=== PATIENT | male | born 1960 | race Caucasian/White ===

== ENCOUNTER 2018-10-06 11:14 | Emergency (ER) | payer MEDICARE, MEDICAID ==
[~2018-10-06] VITALS: Ht 182.9 cm; Wt 102.3 kg
[2018-10-06] MEDS ORDERED: LANTINJ4 SC (11:37)
[2018-10-06] MEDS ORDERED: METF10004 PO (11:37)
[2018-10-06] MEDS ORDERED: NS 1,000 ML IV ONE (12:15)
[2018-10-06 12:48] LABS: BASO # 0.1 10^3/uL (0.0-0.2); BASO % 0.6 % (0.0-1.0); EOS # 0.3 10^3/uL (0.0-0.50); EOS % 2.7 % (0.0-3.0); HEMATOCRIT 47.1 % (42.0-52.0); HEMOGLOBIN 15.9 g/dl (13.5-17.5); LYMPH % 28.8 % (24.0-44.0); MEAN CORPUSCULAR HEMOGLOBIN 28.6 pg (27.0-33.0); MEAN CORPUSCULAR HGB CONC 33.8 g/dl (32.0-36.5); MEAN CORPUSCULAR VOLUME 84.9 fl (80.0-96.0); MONO # 0.7 10^3/uL (0.0-0.8); MONO % 6.3 % (0.0-5.0); NEUTROPHILS # 6.4 10^3/uL (1.8-7.7); NEUTROPHILS % 61.2 % (36.0-66.0); PLATELET COUNT, AUTOMATED 197 10^3/uL (150-450); RED BLOOD COUNT 5.55 10^6/uL (4.30-6.10); WHITE BLOOD COUNT 10.5 10^3/uL (4.0-10.0)
--- NOTE | 2018-10-06 13:16 | REP ---
Chest x-ray: Two views. History: Altered mental status. Findings: EKG monitoring electrodes overlie the chest. The lungs are well inflated and clear. Heart is not enlarged. Pulmonary vasculature is not increased. No significant bony abnormality is seen. Impression: No active disease. Electronically Signed by Mark Cottrell MD 10/06/2018 01:08 P
[2018-10-06 14:38] LABS: ACETAMINOPHEN LEVEL < 2.0 UG/ML (10.0-30.0); ALBUMIN 3.7 GM/DL (3.2-5.2); ALT/SGPT 20 U/L (12-78); BILIRUBIN,DIRECT 0.1 MG/DL (0.0-0.2); BILIRUBIN,TOTAL 0.5 MG/DL (0.2-1.0); BLOOD UREA NITROGEN 14 MG/DL (7-18); CALCIUM LEVEL 8.2 MG/DL (8.5-10.1); CARBON DIOXIDE LEVEL 28 MEQ/L (21-32); CHLORIDE LEVEL 103 MEQ/L (98-107); CPK CREATINE PHOSPHOKINASE 153 U/L (39-308); GLOMERULAR FILTRATION RATE > 60.0 (>56); GLUCOSE, FASTING 120 MG/DL (70-100); MB/CK RELATIVE INDEX 1.96 (< OR =4); POTASSIUM SERUM 3.4 MEQ/L (3.5-5.1); SALICYLATE LEVEL < 1.7 MG/DL (5.0-30.0); SODIUM LEVEL 139 MEQ/L (136-145); THYROID STIMULATING HORMONE 0.353 uIU/ML (0.358-3.740); TOTAL PROTEIN 6.4 GM/DL (6.4-8.2); TROPONIN I < 0.02 NG/ML (< 0.10)
[2018-10-06 14:42] LABS: ETHYL ALCOHOL (ETHANOL) < 0.003 % (0.000-0.010)
[2018-10-06 14:54] VITALS: BP 121/72
--- NOTE | 2018-10-06 20:07 | ECGEPIP ---
Stationary ECG Study [facility] - ED Test Date: 2018-10-06 Pat Name: LUCIA MCNAIR Department: Room: - Gender: M Director [employer]: aureliano : 1960 Requested By: Vicenta Parsons Order Number: [id number] Reading MD: Vicenta Parsons Measurements Intervals [place] Rate: 82 P: 38 SC: 192 QRS: -22 QRSD: 94 T: 40 QT: 345 QTc: 404 Interpretive Statements SINUS RHYTHM WITH MARKED SINUS ARRHYTHMIA SEPTAL MYOCARDIAL INFARCTION, OF INDETERMINATE AGE LAD NONSPECIFIC ST T WAVE CHANGES NO OLD ECG Electronically Signed On 10-06-2018 20:06:54 EST by Vicenta Parsons
== END 2018-10-06 14:55 | disposition home or self-care (01) ==
LOC: M ED 11:14
DX: R53.83 Other fatigue (principal); R53.81 Other malaise; E11.9 Type 2 diabetes mellitus without complications; F17.210 Nicotine dependence, cigarettes, uncomplicated; Z79.4 Long term (current) use of insulin
CPT/HCPCS: 71046; 80048; 80076; 82550; 82553; 83605; 84443; 84484; 85025; 93005; 94760; 99284; G0480

== ENCOUNTER 2018-11-23 13:01 | Emergency (ER) | payer MEDICARE, MEDICAID ==
[~2018-11-23] VITALS: Ht 182.9 cm; Wt 109.0 kg
[~2018-11-23 13:01] MED LIST: LANTINJ4 SC; METF10004 PO
[2018-11-23] MEDS ORDERED: ACETAMINOPHEN 325 MG TAB PO ONE (13:15)
[2018-11-23] MEDS ORDERED: IBUPROFEN 600 MG TAB PO ONE (13:15)
[2018-11-23 13:49] LABS: BASO % 0.5 % (0.0-1.0); EOS % 0.4 % (0.0-3.0); HEMATOCRIT 47.8 % (42.0-52.0); HEMOGLOBIN 16.2 g/dl (13.5-17.5); LYMPH # 0.6 10^3/uL (1.5-4.5); LYMPH % 6.5 % (24.0-44.0); MEAN CORPUSCULAR HGB CONC 33.9 g/dl (32.0-36.5); MEAN CORPUSCULAR VOLUME 85.5 fl (80.0-96.0); MONO # 1.1 10^3/uL (0.0-0.8); MONO % 13.3 % (0.0-5.0); NEUTROPHILS # 6.7 10^3/uL (1.8-7.7); NEUTROPHILS % 78.8 % (36.0-66.0); PLATELET COUNT, AUTOMATED 142 10^3/uL (150-450); RED BLOOD COUNT 5.59 10^6/uL (4.30-6.10); WHITE BLOOD COUNT 8.5 10^3/uL (4.0-10.0)
--- NOTE | 2018-11-23 13:58 | REP ---
PORTABLE CHEST X-RAY: Single view. HISTORY: Systemic inflammatory response syndrome. COMPARISON CHEST X-RAY: October 06, 2018. FINDINGS: The lungs are symmetrically aerated and free of infiltrate. Pleural angles are sharp. Heart size is normal. The aorta somewhat tortuous. No infiltrate is seen. Pulmonary vasculature is not increased. There are arthritic changes in the right shoulder. IMPRESSION: No active cardiopulmonary disease. Electronically Signed by Mark Cottrell MD 11/23/2018 03:19 P
[2018-11-23 14:14] LABS: ALBUMIN 4.1 GM/DL (3.2-5.2); ALT/SGPT 24 U/L (12-78); BILIRUBIN,DIRECT 0.2 MG/DL (0.0-0.2); BILIRUBIN,TOTAL 0.6 MG/DL (0.2-1.0); BLOOD UREA NITROGEN 15 MG/DL (7-18); CALCIUM LEVEL 8.3 MG/DL (8.5-10.1); CARBON DIOXIDE LEVEL 31 MEQ/L (21-32); CHLORIDE LEVEL 95 MEQ/L (98-107); CREATININE FOR GFR 1.04 MG/DL (0.70-1.30); GLOMERULAR FILTRATION RATE > 60.0 (>56); GLUCOSE, FASTING 264 MG/DL (70-100); POTASSIUM SERUM 3.5 MEQ/L (3.5-5.1); SODIUM LEVEL 133 MEQ/L (136-145); TOTAL PROTEIN 7.3 GM/DL (6.4-8.2)
[2018-11-23 14:35] VITALS: BP 128/67
[2018-11-23 14:41] LABS: INFLUENZA A AMPLIFICATION POSITIVE (NEGATIVE); INFLUENZA B AMPLIFICATION NEGATIVE (NEGATIVE)
== END 2018-11-23 15:36 | disposition left against medical advice (07) ==
LOC: EDBD 13:01 → M ED 13:01
DX: J09.X2 Influenza due to identified novel influenza A virus with other respiratory manifestations (principal); E11.9 Type 2 diabetes mellitus without complications; F17.200 Nicotine dependence, unspecified, uncomplicated; Z79.84 Long term (current) use of oral hypoglycemic drugs

== ENCOUNTER 2018-12-02 13:28 | Emergency (ER) | payer MEDICARE, MEDICAID ==
[2018-12-02 13:30] VITALS: BP 154/86
== END 2018-12-02 16:00 | disposition left against medical advice (07) ==
LOC: M ED 13:28
DX: Z53.21 Procedure and treatment not carried out due to patient leaving prior to being seen by health care provider (principal)

== ENCOUNTER → 2018-12-21 | Outpatient (REF) | payer MEDICARE, MEDICAID ==
[2018-12-21 19:06] LABS: ALT/SGPT 28 U/L (12-78); BILIRUBIN,TOTAL 0.4 MG/DL (0.2-1.0); BLOOD UREA NITROGEN 13 MG/DL (7-18); CALCIUM LEVEL 8.7 MG/DL (8.5-10.1); CARBON DIOXIDE LEVEL 29 MEQ/L (21-32); CHLORIDE LEVEL 98 MEQ/L (98-107); CHOLESTEROL LEVEL 172 MG/DL (<200); CHOLESTEROL RISK RATIO 3.583 (<5); FREE T4 0.98 NG/DL (0.76-1.46); GLOMERULAR FILTRATION RATE > 60.0 (>56); GLUCOSE, FASTING 317 MG/DL (70-100); HDL CHOLESTEROL 48 MG/DL (>40); LDL CHOLESTEROL 64 MG/DL (<100); NON-HDL-C 124 MG/DL; POTASSIUM SERUM 3.7 MEQ/L (3.5-5.1); SODIUM LEVEL 135 MEQ/L (136-145); THYROID STIMULATING HORMONE 0.321 uIU/ML (0.358-3.740); TOTAL PROTEIN 7.1 GM/DL (6.4-8.2); TRIGLYCERIDES LEVEL 302 MG/DL (<150)
[2018-12-21 19:14] LABS: BASO # 0.1 10^3/uL (0.0-0.2); BASO % 0.6 % (0.0-1.0); EOS # 0.2 10^3/uL (0.0-0.50); EOS % 1.8 % (0.0-3.0); HEMATOCRIT 45.5 % (42.0-52.0); HEMOGLOBIN 15.8 g/dl (13.5-17.5); HEMOGLOBIN A1c 10.6 %; LYMPH # 2.7 10^3/uL (1.5-4.5); LYMPH % 22.4 % (24.0-44.0); MEAN CORPUSCULAR HEMOGLOBIN 29.8 pg (27.0-33.0); MEAN CORPUSCULAR HGB CONC 34.7 g/dl (32.0-36.5); MEAN CORPUSCULAR VOLUME 85.8 fl (80.0-96.0); MONO # 0.6 10^3/uL (0.0-0.8); MONO % 5.1 % (0.0-5.0); NEUTROPHILS # 8.3 10^3/uL (1.8-7.7); NEUTROPHILS % 69.7 % (36.0-66.0); PLATELET COUNT, AUTOMATED 172 10^3/uL (150-450); WHITE BLOOD COUNT 11.9 10^3/uL (4.0-10.0)
[2018-12-21 19:17] LABS: TOTAL 25(OH) VITAMIN D 17.6 NG/ML (30.0-100.0)
[2018-12-24 00:07] LABS: Lyme Disease IgG/IgM Antibodie <0.91 ISR (0.00-0.90); Lyme Disease IgM Ab Quantitati <0.80 index (0.00-0.79)
== END ==
LOC: M LAB REF 18:06
PROVIDERS: ATTEND Internal Medicine
DX: Z12.5 Encounter for screening for malignant neoplasm of prostate (principal); E11.9 Type 2 diabetes mellitus without complications; Z13.228 Encounter for screening for other metabolic disorders
CPT/HCPCS: 80053; 80061; 82306; 83036; 84439; 84443; 85025; 86617; G0103

== ENCOUNTER → 2019-01-08 | Outpatient (CLI) | payer MEDICARE, MEDICAID ==
--- NOTE | 2019-01-08 14:50 | REP ---
CT INTERNAL AUDITORY CANALS WITHOUT CONTRAST: HISTORY: Mixed conductive hearing loss. The right internal auditory canal, cochlea, vestibule and semicircular canals are normal in appearance. There is no carotid canal or jugular bulb dehiscence. The ossicles are normal in configuration and position. The scutum is intact. There are areas of dehiscence in the tegmen. There is thickening and retraction of the tympanic membrane. Minimal mucosal thickening is present in the mastoid antrum and mastoid air cells. The patient is status post left mastoidectomy. The left internal auditory canal, cochlea, vestibule, and semicircular canals are normal in appearance. There is no carotid canal jugular bulb dehiscence. Soft tissue density consistent with scar is present at the margins of the mastoidectomy site. The visualized sinuses are clear. The nasopharynx is normal in appearance. IMPRESSION: 1. There is thickening and retraction of the right tympanic membrane. Minimal mucosal thickening is present in the right mastoid antrum and mastoid air cells. 2. The patient is status post left mastoidectomy. Electronically Signed by Dagoberto Rod MD 01/08/2019 02:53 P
== END ==
LOC: M RAD 13:54
PROVIDERS: ATTEND Otolaryngology
DX: H73.891 Other specified disorders of tympanic membrane, right ear (principal); Z86.69 Personal history of other diseases of the nervous system and sense organs

== ENCOUNTER 2019-04-20 15:55 | Emergency (ER) | payer MEDICARE, MEDICAID ==
[~2019-04-20] VITALS: Ht 182.9 cm; Wt 113.6 kg
[2019-04-20 15:55] VITALS: BP 142/72
[2019-04-20] MEDS ORDERED: METF500T13 (16:02)
[2019-04-20] MEDS ORDERED: insulin (16:02)
[2019-04-20] MEDS ORDERED: KEFL500C17 PO (17:41)
[2019-04-20] MEDS ORDERED: CEPHALEXIN 500 MG CAP PO ONE (17:45)
[2019-04-20] MEDS ORDERED: ADACEL/BOOSTRIX VACCINE (DIPHTH/PERTUSS/ACELL/TETANUS)0.5ML SYR (90715) IM ONE (17:45)
== END 2019-04-20 17:52 | disposition home or self-care (01) ==
LOC: M ED 15:55
DX: S81.812A Laceration without foreign body, left lower leg, initial encounter (principal); L03.116 Cellulitis of left lower limb; X58.XXXA Exposure to other specified factors, initial encounter; Y92.830 Public park as the place of occurrence of the external cause; Y93.01 Activity, walking, marching and hiking; E11.9 Type 2 diabetes mellitus without complications; F17.210 Nicotine dependence, cigarettes, uncomplicated; Z79.4 Long term (current) use of insulin

== ENCOUNTER 2019-06-08 12:32 | Emergency (ER) | payer MEDICARE, MEDICAID ==
[~2019-06-08 12:32] MED LIST changes: +KEFL500C17 PO; +METF500T13; +insulin
[2019-06-08 15:01] VITALS: BP 139/98
== END 2019-06-08 15:05 | disposition home or self-care (01) ==
LOC: M ED 12:32
DX: F32.9 Major depressive disorder, single episode, unspecified (principal); E11.9 Type 2 diabetes mellitus without complications; Z79.84 Long term (current) use of oral hypoglycemic drugs

== ENCOUNTER 2019-07-02 13:02 | Emergency (ER) | payer MEDICARE, MEDICAID ==
[~2019-07-02] VITALS: Ht 182.9 cm; Wt 102.0 kg
--- NOTE | 2019-07-02 14:13 | REP ---
Right foot series: Four views. History: Rule out foreign body. Findings: Four views of the right foot demonstrate overall normal mineralization. There is plantar calcaneal spurring. 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 No opaque foreign bodies seen. Impression: No evidence of fracture or opaque foreign body. Heel spur and first MTP joint spurring. Electronically Signed by Mark Cottrell MD 07/02/2019 02:05 P
--- NOTE | 2019-07-02 15:06 | REP ---
CT RIGHT FOOT: Axial CT images of the right foot are performed without the use of intravenous contrast. Sagittal and coronal reconstruction images are performed. There is no evidence of acute fracture or dislocation. Tiny 2 mm calcification is seen at the posterior marginal of the distal end of the tibia and another is seen between the distal tibia and fibula. These could possibly represent old chip fractures. Nonspecific linear calcification is seen in the anterior talocalcaneal joint having a length of approximately 4 mm. There is mild to moderate inferior calcaneal spurring. Arthritic changes are seen at the first metatarsophalangeal joint with moderate joint space narrowing and mild subchondral sclerosis and spurring. There is a hallux valgus deformity. Ankle mortise is anatomic. No radiopaque foreign body is seen in the soft tissues. IMPRESSION: No acute fracture or dislocation. No foreign body in the soft tissues. Arthritic changes. Electronically Signed by Jhonny Warren MD 07/06/2019 08:53 A
[2019-07-02 15:13] LABS: BASO # 0.1 10^3/uL (0.0-0.2); BASO % 0.3 % (0.0-1.0); EOS # 0.2 10^3/uL (0.0-0.5); EOS % 1.1 % (0.0-3.0); HEMATOCRIT 45.3 % (42.0-52.0); HEMOGLOBIN 15.5 g/dl (13.5-17.5); LYMPH # 2.3 10^3/uL (1.5-5.0); LYMPH % 15.9 % (24.0-44.0); MEAN CORPUSCULAR HEMOGLOBIN 30.2 pg (27.0-33.0); MEAN CORPUSCULAR HGB CONC 34.2 g/dl (32.0-36.5); MEAN CORPUSCULAR VOLUME 88.3 fl (80.0-96.0); MONO # 0.9 10^3/uL (0.0-0.8); MONO % 6.3 % (0.0-5.0); NEUTROPHILS # 11.1 10^3/uL (1.5-8.5); NEUTROPHILS % 75.9 % (36.0-66.0); PLATELET COUNT, AUTOMATED 174 10^3/uL (150-450); RED BLOOD COUNT 5.13 10^6/uL (4.30-6.10); WHITE BLOOD COUNT 14.6 10^3/uL (4.0-10.0)
[2019-07-02] MEDS ORDERED: CIPROFLOXACIN 400 MG in IV 1 EA IV ONE (15:30)
[2019-07-02 15:37] LABS: BLOOD UREA NITROGEN 20 MG/DL (7-18); CALCIUM LEVEL 8.9 MG/DL (8.5-10.1); CARBON DIOXIDE LEVEL 32 MEQ/L (21-32); CHLORIDE LEVEL 94 MEQ/L (98-107); CREATININE FOR GFR 0.96 MG/DL (0.70-1.30); GLOMERULAR FILTRATION RATE > 60.0 (>56); GLUCOSE, FASTING 326 MG/DL (70-100); POTASSIUM SERUM 4.2 MEQ/L (3.5-5.1); SODIUM LEVEL 133 MEQ/L (136-145)
[2019-07-02 17:50] VITALS: BP 147/86
[2019-07-02] MEDS ORDERED: CIPR-249 PO (18:03)
== END 2019-07-02 18:22 | disposition home or self-care (01) ==
LOC: M ED 13:02
DX: M77.31 Calcaneal spur, right foot (principal); F17.210 Nicotine dependence, cigarettes, uncomplicated; E11.65 Type 2 diabetes mellitus with hyperglycemia; Z79.4 Long term (current) use of insulin; S91.331A Puncture wound without foreign body, right foot, initial encounter; X58.XXXA Exposure to other specified factors, initial encounter; Y92.89 Other specified places as the place of occurrence of the external cause
CPT/HCPCS: 36415; 73630; 73700; 80048; 85025; 87040; 99284; J0744

== ENCOUNTER 2019-07-06 10:03 | Emergency (ER) | payer MEDICARE, MEDICAID ==
[~2019-07-06] VITALS: Ht 182.9 cm; Wt 102.2 kg
[~2019-07-06 10:03] MED LIST changes: +CIPR-249 PO
[2019-07-06] MEDS ORDERED: CIPROFLOXACIN 400 MG in IV 1 EA IV ONE (11:00)
[2019-07-06 11:35] LABS: BASO % 0.3 % (0.0-1.0); EOS # 0.1 10^3/uL (0.0-0.5); EOS % 0.8 % (0.0-3.0); HEMATOCRIT 43.4 % (42.0-52.0); HEMOGLOBIN 14.8 g/dl (13.5-17.5); LYMPH # 1.8 10^3/uL (1.5-5.0); LYMPH % 12.1 % (24.0-44.0); MEAN CORPUSCULAR HEMOGLOBIN 29.8 pg (27.0-33.0); MEAN CORPUSCULAR HGB CONC 34.1 g/dl (32.0-36.5); MEAN CORPUSCULAR VOLUME 87.3 fl (80.0-96.0); MONO # 0.9 10^3/uL (0.0-0.8); NEUTROPHILS # 11.7 10^3/uL (1.5-8.5); NEUTROPHILS % 80.5 % (36.0-66.0); PLATELET COUNT, AUTOMATED 180 10^3/uL (150-450); RED BLOOD COUNT 4.97 10^6/uL (4.30-6.10); WHITE BLOOD COUNT 14.6 10^3/uL (4.0-10.0)
[2019-07-06 12:05] LABS: BLOOD UREA NITROGEN 22 MG/DL (7-18); CALCIUM LEVEL 8.5 MG/DL (8.5-10.1); CARBON DIOXIDE LEVEL 25 MEQ/L (21-32); CHLORIDE LEVEL 98 MEQ/L (98-107); CREATININE FOR GFR 1.02 MG/DL (0.70-1.30); GLOMERULAR FILTRATION RATE > 60.0 (>56); GLUCOSE, FASTING 443 MG/DL (70-100); POTASSIUM SERUM 3.4 MEQ/L (3.5-5.1); SODIUM LEVEL 134 MEQ/L (136-145)
[2019-07-06 13:48] VITALS: BP 141/80
== END 2019-07-06 13:50 | disposition home or self-care (01) ==
LOC: EDBD 10:03 → M ED 10:03 → EDUNIT# 10:03 → M ED 13:50
DX: S91.331D Puncture wound without foreign body, right foot, subsequent encounter (principal); Z91.19 Patient's noncompliance with other medical treatment and regimen; X58.XXXD Exposure to other specified factors, subsequent encounter; Y92.9 Unspecified place or not applicable; Y93.9 Activity, unspecified; Y99.9 Unspecified external cause status; E11.9 Type 2 diabetes mellitus without complications; Z79.4 Long term (current) use of insulin; Z79.899 Other long term (current) drug therapy
CPT/HCPCS: 80048; 83605; 85025; 96365; 96366; 99284; J0744

== ENCOUNTER 2019-07-12 12:10 | Inpatient (IN) | payer MEDICARE, MEDICAID ==
[~2019-07-12] VITALS: Ht 182.9 cm; Wt 94.8 kg
[2019-07-12] MEDS ORDERED: MORPHINE 4 MG/ML 1ML VIAL/SYRINGE (J2270) IV ONE (12:45)
[2019-07-12] MEDS ORDERED: NS 1,000 ML IV ONE (12:45)
[2019-07-12] MEDS ORDERED: VANCOMYCIN HCL 1,000 MG, VIAL MATE ADAPTER 1 EACH in D5W 250 ML IV ONE (13:00)
[2019-07-12] MEDS ORDERED: PIPERACILLIN/TAZOBACTAM SOD 3.375 GM in D5W MINI-BAG PLUS 50 ML IV ONE (13:00)
[2019-07-12 13:16] LABS: BASO # 0.1 10^3/uL (0.0-0.2); BASO % 0.3 % (0.0-1.0); EOS # 0.1 10^3/uL (0.0-0.5); EOS % 0.2 % (0.0-3.0); HEMATOCRIT 40.5 % (42.0-52.0); HEMOGLOBIN 13.9 g/dl (13.5-17.5); LYMPH # 1.4 10^3/uL (1.5-5.0); LYMPH % 6.5 % (24.0-44.0); MEAN CORPUSCULAR HEMOGLOBIN 29.9 pg (27.0-33.0); MEAN CORPUSCULAR HGB CONC 34.3 g/dl (32.0-36.5); MEAN CORPUSCULAR VOLUME 87.1 fl (80.0-96.0); MONO # 1.3 10^3/uL (0.0-0.8); MONO % 6.4 % (0.0-5.0); PLATELET COUNT, AUTOMATED 225 10^3/uL (150-450); RED BLOOD COUNT 4.65 10^6/uL (4.30-6.10); WHITE BLOOD COUNT 20.9 10^3/uL (4.0-10.0)
[2019-07-12 13:43] LABS: ERYTHROCYTE SEDIMENTATION RATE 44 mm/hr (0-20)
[2019-07-12] MEDS ORDERED: NOVOINJ3 SC (14:27)
[2019-07-12] MEDS ORDERED: METF-791 PO (14:27)
[2019-07-12] MEDS ORDERED: CIPR500T3 PO (14:27)
[2019-07-12] MEDS ORDERED: LEVE1INJ5 SC (14:27)
--- NOTE | 2019-07-12 15:25 | HPEPDOC ---
[facility] Medical History & Physical Date of Admission Jul 12, 2019 Date of Service: Jul 12, 2019 History and Physical CHIEF COMPLAINT: R. foot pain HISTORY OF PRESENT ILLNESS: Patient is 58M with PMH IDDM and congenital hearing impairment presented to the ER with complaints of R. foot wound that started 1.5 weeks ago. He initially presented to the ER for the first time 1.5 weeks prior with some erythema and pain and was given cipro PO outpatient without improvement. He came back 2nd time and was given IV abx and sent home but wound persisted and got worse. He was found to have increased swelling today beyond the R. heel he initially presented with, now generalized R. foot swelling to above ankle with erythema at the heel. He denies any other complaints apart from the discomfort in his foot after he underwent I&D that expressed purulent drainage. He was noted to have WBC 20 with elevated ESR and CRP. PAST MEDICAL HISTORY: Refer to [facility] PAST SURGICAL HISTORY: Ear surgery SOCIAL HISTORY: Smokes 1/2 ppd. Denies alcohol or illicit drug use. FAMILY HISTORY: None known ALLERGIES: Please see below. REVIEW OF SYSTEMS: 10 point review of system negative except as stated in [facility] HOME MEDICATIONS: Please see below. PHYSICAL EXAMINATION: General: No acute distress, Alert, unkempt in dirty clothing Eyes: Normal sclera, EOMI, CHAD HENT: Atraumatic, neck supple, moist mucous membranes Cardiovascular: Normal rate, normal rhythm. Pulmonary: Clear to auscultation b/l, no wheezing GI: Soft, nontender, nondistended Skin: Warm and dry Neuro: CN grossly intact. No focal deficits. Strengths equal b/l. Psych: oriented x 3 LABORATORY DATA: See below. IMAGING: R. foot XR f/u MICROBIOLOGY: Please see below. ASSESSMENT AND PLAN: 1. R. foot diabetic wound - Reported to be 2/2 traumatic injury from stepping on nail but patient denies any states that it came on suddenly on its own. - Failed outpatient PO abx treatment with cipro. - s/p I&D in ER with expression of purulent drainage. f/u blood and wound culture. - XR and CT of R. foot from 10 days prior showed no significant pathology. Repeat R. foot XR as wound has now worsened and purulent. - ESR and CRP elevated in addition to leukocytosis. Podiatry and ID consulted. - C/w Zosyn and vancomycin started in ER for now pending ID recommendations. 2. IDDM - Resume home medications with holding of metformin. - ISS. Check BS. 3. hearing impairment - congenital. no active issues. Code status: Full code Dispo: CM to assess home safety, reportedly has no hot water at his apartment and he cannot take care of himself adequately as a result of it. Vital Signs Vital Signs Date Time Temp Pulse Resp B/P (MAP) Pulse Ox O2 Delivery O2 Flow Rate FiO2 07/12/19 12:30 97.5 07/12/19 12:21 75 18 121/69 (86) 96 Room Air Laboratory Data Labs 24H Laboratory Tests 2 07/12/19 13:07: Immature Granulocyte % (Auto) 0.6, Neutrophils (%) (Auto) 86.0H, Lymphocytes (%) (Auto) 6.5L, Monocytes (%) (Auto) 6.4H, Eosinophils (%) (Auto) 0.2, Basophils (%) (Auto) 0.3, Neutrophils # (Auto) 18.0H, Lymphocytes # (Auto) 1.4L, Monocytes # (Auto) 1.3H, Eosinophils # (Auto) 0.1, Basophils # (Auto) 0.1, Nucleated Red Blood Cells % (auto) 0.0, Erythrocyte Sedimentation Rate 44H, C-Reactive Protein, Quantitative 18.60H 07/12/19 13:09: POC Glucose (Misc Panel) 389H, POC Sodium (Misc Panel) 134L, POC Potassium (Misc Panel) 3.0L, POC Chloride (Misc Panel) 91L, POC Total CO2 (Misc Panel) 31.0H, POC Blood Urea Nitrogen (Misc Panel 17, POC Ionized Calcium (Misc Panel) 4.3L, POC Creatinine (Misc Panel) 0.9, POC Hematocrit (Misc Panel) 43.0 CBC/BMP Laboratory Tests 07/12/19 13:07 Microbiology Microbiology 07/12/19 Gram Stain, Received Pending 07/12/19 Wound Culture, Received Pending 07/12/19 Blood Culture, Received Pending 07/12/19 Blood Culture, Received Pending Home Medications Scheduled Ciprofloxacin HCl (Ciprofloxacin HCl) 500 Mg Tablet, 500 MG PO BID PICKED UP FROM PHARMACY ON 07/08/19 Insulin Aspart (Novolog Flexpen) 100 Unit/1 Ml Insuln.pen, 1 DOSE SC ACHS PER SLIDING SCALE Insulin Detemir (Levemir Flextouch) 100 Unit/1 Ml Insuln.pen, 30 UNIT SC QHS Metformin HCl (Metformin HCl ER) 500 Mg Tab.er.24h, 1,000 MG PO BID Allergies Coded Allergies: No Known Allergies (Unverified , 10/06/18) A-FIB/CHADSVASC A-FIB History Current/History of A-Fib/PAF?: No AUSTYN GIVENS MD Jul 12, 2019 15:25
[2019-07-12 16:10] VITALS: BP 137/64
[2019-07-12] MEDS: ACETAMINOPHEN TAB 650MG DOSE (2X325MG) PO PRN (17:27)
[2019-07-12] MEDS ORDERED: GLUCOSE 4 GM CHEW TABLET PO PRN (18:00)
[2019-07-12] MEDS ORDERED: DEXTROSE 50% 50 ML SYRINGE IV PRN (18:00)
[2019-07-12] MEDS ORDERED: GLUCAGON FOR INJ 1 MG VIAL (J1610) SC PRN (18:00)
--- NOTE | 2019-07-12 18:00 | REP ---
REASON: Foot pain. COMPARISON: 07/02/2019. There is no change from 07/02/2019. There is a plantar calcaneal heel spur. There are degenerative changes seen involving the first metatarsal phalangeal joint. IMPRESSION:No change. Electronically Signed by Erich Roberto DO 07/13/2019 10:26 A
[2019-07-12] MEDS: PIPERACILLIN/TAZOBACTAM SOD 3.375 GM in D5W MINI-BAG PLUS 50 ML IV SCH (18:14)
[2019-07-12] MEDS: HumaLOG INSULIN (NovoLOG) PER UNIT SC SCH ×2 (18:14→21:00)
--- NOTE | 2019-07-12 18:14 | CR ---
DATE OF CONSULTATION: 07/12/2019 REASON FOR CONSULTATION: Right foot pain. This is a pleasant 58-year-old male who was admitted to the hospital with right foot wound infection. He believes this started about 1-2 weeks ago. He does not recall any specific injury. He was given Cipro outpatient but had worsening redness and pain. He was admitted to the hospital from the emergency room (ER) today. PAST MEDICAL HISTORY: Significant for insulin-dependent diabetes. SURGICAL HISTORY: Includes ear history. SOCIAL HISTORY: Smokes one-half pack per day. Denies other drug use. FAMILY HISTORY: Noncontributory. ALLERGIES: None. VITAL SIGNS: Patient is afebrile. Labs are reviewed. White blood cell count is 20.9. ESR is 44. CRP is 18.6. Cultures taken in the ER today show gram-positive cocci in clusters. Imaging studies are reviewed. He had a foot x-ray and CT on 07/02/2019, where no foreign body or soft tissue pathology was noted, and a repeat x-ray was done today, where no foreign body or soft tissue issues were noted. Lower extremity examination: There is erythema to the right heel. There is ulceration with fluctuance and fluid on the plantar heel. After removal of fluid, there is a small puncture site on the right heel. He has diminished protective sensation. Pedal pulses are palpable. ASSESSMENT: This is a 58-year-old diabetic male. PLAN: Bedside incision and drainage were performed using #15 blade. No anesthetic was used due to neuropathy. Fluid was expressed, and a small puncture wound was made around the previous wound site, allowing further drainage from the wound. Continue empiric antibiotics. Await cultures results. Start packing twice daily.
--- NOTE | 2019-07-12 19:24 | CR ---
DATE OF CONSULTATION: 07/12/2019 CONSULTATION REPORT FOR: Dr. Romero REASON FOR CONSULTATION: Right foot cellulitis. ATTENDING PHYSICIAN: Dr. Aaliyah Centeno HISTORY OF PRESENT ILLNESS: Mr. Yuan is a 58-year-old male who presented to the [facility] Emergency Department with a complaint of a right foot wound. He has a past medical history significant for insulin-dependent diabetes mellitus type 2 as well as a congenital hearing impairment. The patient states that his right foot wound had started approximately one and a half weeks ago. At which point, he presented to the [facility] Emergency Department and was treated with IV ciprofloxacin and discharged home with oral ciprofloxacin. The patient states that his foot pain continued and did not get better and he presented for a second time. At which point, he was given another IV dose of ciprofloxacin and discharged home with continued oral therapy. The patient states that since returning home on 07/06/2019 his right foot wound continued to worsen. He states that he did not have any fevers. However, he states that he may have had some chills sometimes. He did admit to increased swelling of his right foot as well as increased erythema as well. The patient states that he is fairly noncompliant with his diabetes and that he has not seen a primary care physician in approximately a year. He states that he was diagnosed with diabetes approximately 10 years ago and uses his medication every now and then and is not consistent. He does state that he has feeling in his legs, although he does admit that it is somewhat dull. The patient currently denies any nausea or vomiting. He denies any diarrhea or constipation. He denies any previous history of diabetic foot ulcers in the past. REVIEW OF SYSTEMS: CONSTITUTIONAL: The patient denies any fevers, chills, unintentional weight loss or weight gain. He denies any night sweats. HEENT: The patient denies any changes in vision. He admits to chronic hearing impairment since childhood. He denies any sore throat or dysphagia. CARDIAC: The patient denies any chest pain. He denies any palpitations or feeling of fluttering in his chest. PULMONARY: The patient denies any shortness of breath. He denies any coughing or wheezing. He denies any sputum production. He denies any hemoptysis. GASTROINTESTINAL: The patient denies any abdominal pain. He denies any nausea or vomiting. He denies any dark or tarry stools. He denies any blood in his stools. MUSCULOSKELETAL: The patient denies any muscle pain or weakness. EXTREMITIES: The patient admits to a right heel pain which has been persisting for about approximately one and a half weeks. He admits to erythema extending from his right heel up his right leg. He denies any swelling or edema of his legs bilaterally. NEUROLOGICAL: The patient denies any changes in gait. He denies any changes in his speech or vision. SKIN: The patient denies any rash or lesions. He does admit to an ulcer on his right foot. GENITOURINARY: The patient denies any dysuria, increased frequency or urgency. PSYCHIATRIC: The patient denies any depression or anxiety. ENDOCRINE: The patient admits to a history of diabetes. He denies any heat intolerance or cold intolerance. HEMATOLOGIC: The patient denies any history of easy bruising or bleeding. He denies any history of deep vein thrombosis or pulmonary embolism. PAST MEDICAL HISTORY: 1. Diabetes mellitus type 2, on insulin therapy. 2. Congenital hearing impairment. PAST SURGICAL HISTORY: Mastoidectomy. SOCIAL HISTORY: The patient smokes approximately one to one and a half packs per day. He denies any alchohol or IV or illicit drug use. The patient states that he lives at home alone in a room that he rents. FAMILY HISTORY: The patient's mother and father are both . He is not sure of how they are . He has one brother who is alive and living in [place]. He has a sister who is alive and living in [place]. His sister has a history of diabetes mellitus type 2. INPATIENT MEDICATIONS: - Zosyn 3.375 grams every six hours IV - vancomycin 1 gram IV - insulin detemir 35 units at bedtime - insulin lispro sliding scale - Lovenox 40 mg daily subcutaneously LABORATORY DATA: Hematology: White blood cells 20.9, hemoglobin 13.9, hematocrit 40.5, platelets 225. ESR 44. C-reactive protein 18.6. POC glucose 346. IMAGING: Completed on 07/12/2019: Foot x-ray currently pending. Foot x-ray completed on 07/02/2019 demonstrated no evidence of fracture or foreign body. There was a heel spur at the first MTP joint. Foot x-ray on 07/12/[address] is currently pending. Extremity CT on 07/02/2019 demonstrated no acute fracture or dislocation and no foreign bodies in the soft tissues as well as some arthritic changes. PHYSICAL EXAMINATION: VITAL SIGNS: Temperature 98.4, pulse 63, respiratory rate 20, blood pressure 137/64, pulse oximetry 96% on room air. GENERAL: The patient is awake, alert, and oriented. He is lying in his stretcher. He did not appear to be in any acute distress. HEENT: Normocephalic, atraumatic. Eyes are nonicteric. Trachea is midline. The patient has a hearing aid device in his right ear. His dentition is poor. CARDIOVASCULAR: Normal S1, S2 with a regular rate and rhythm. There are no clicks, rubs, or murmurs. PULMONARY: There are clear vesicular breath sounds bilaterally with good respiratory effort. There is a prolonged expiratory phase. There are no wheezes. There are no rhonchi. There are no rales. There is no dullness to percussion. There is no clubbing or cyanosis of the nail beds. ABDOMEN: Soft. It is nondistended. It is nontender to palpation in all four quadrants. No rebound tenderness. There is no guarding. There are no rashes or lesions. There are no hernias present. There are normoactive bowel sounds throughout. EXTREMITIES: The patient's extremities are without edema. There are 2+ posterior tibial pulses bilaterally. There are 2+ dorsalis pedis pulses bilaterally. On the patient's right heel, there is an approximately 6 cm x 5 cm area of abscess/cellulitis. There is no opening of the skin. There is some erythema surrounding and extending up the leg. On palpation of the abscess, it is fluctuant. His toenails demonstrate likely onychomycosis. There are no other ulcers or lesions present on his bilateral feet. PSYCHIATRIC: The patient's mood and affect appear appropriate for the situation. ASSESSMENT AND PLAN: The patient is a 58-year-old male who presented with a right foot cellulitis with possible abscess who was seen twice in the emergency department and treated with ciprofloxacin. He has failed ciprofloxacin therapy both IV and oral previously. He is being admitted for treatment of a presumed right foot cellulitis. The patient has received imaging on his previous hospitalization with a negative foot x-ray. Foot x-ray was repeated today which is pending. Unlikely to be osteomyelitis. However, an MRI may need to be performed in order to definitively guide antibiotic therapy duration if slow to improve . In the emergency department, the patient's right heel wound was incised and drained for culture. The patient's gram-staining came back with many gram-positive cocci in clusters. The wound culture is currently pending. Likely going to be a Staphylococcus aureus infection. The patient is currently receiving Zosyn every six hours 3.75 grams. He received 1 gram of vancomycin in the emergency room (ER). Once culture data has returned, we will tailor antibiotic therapy and deescalate according to culture data. [facility]
[2019-07-12 21:00] VITALS: BP 118/73
[2019-07-12 22:00] VITALS: BP 118/73
[2019-07-12] MEDS: LEVEMIR (INSULIN DETEMIR) 1 UNITS/0.01ML SC SCH (22:00)
[2019-07-12] MEDS: PERCOCET 5MG/325MG TAB PO PRN (23:49)
--- NOTE | 2019-07-12 23:49 | PHACANCOPD ---
PHARMACY VANCOMYCIN DOSING Pt Demographics Demographics Patient Age:58 , Weight:95.500 , Gender: male Adjusted Body Weight Events Past 24 Hours Events Past 24 Hours: NO: Dialysis, Diuretic Therapy, Change in CrCl, Fever, Elevation in WBC, Pending Diagnostics, Pending Procedures, Other Vancomycin Vancomycin indication: RT DIABETIC FOOT SSSI Vancomycin Target Ranges: 15-20 mcg/ml Vancomycin Load Y/N: Yes Load Dose Date Time Vancomycin Load Dose: 2GM Date: 07/13/19 Time: 2AM Vancomycin Dose Date: 07/13/19. Current Vancomycin Dose: [1GM IV Q8H (10:00)] Intermittent Dosing?: No Labs Micro Microbiology 07/12/19 Gram Stain, Received Pending 07/12/19 Wound Culture, Received Pending 07/12/19 Gram Stain - Final, Resulted 07/12/19 Wound Culture, Resulted Pending 07/12/19 Blood Culture, Received Pending 07/12/19 Blood Culture, Received Pending Creatinine Clearance Date:07/12/19. Creatinine Clearance: [>60ml/min]. Assessment and Plan Maintaining Current Dose?: Yes Reason for dose change: No Dose Change, Other Pharmacist Note Pharmacist Note Date: 07/13/19. PharmD note: VANCO 2GM LOAD DOSE AT 2AM FOLLOWED BY 1GM IV Q8H STARTING AT 10AM. VANCO TROUGH WHEN AT STEADY STATE 07/06/19 SCR = 1.02 [facility] Jul 12, 2019 23:49
[2019-07-13] MEDS: PIPERACILLIN/TAZOBACTAM SOD 3.375 GM in D5W MINI-BAG PLUS 50 ML IV SCH ×4 (00:24→21:57)
[2019-07-13] MEDS ORDERED: oxyCODONE 5MG TAB PO ONE (01:45)
[2019-07-13] MEDS: VANCOMYCIN HCL 1,000 MG, VIAL MATE ADAPTER 1 EACH in D5W 250 ML IV SCH ×4 (01:58→19:14)
[2019-07-13] MEDS ORDERED: MORPHINE 4 MG/ML 1ML VIAL/SYRINGE (J2270) IV ONE (04:00)
[2019-07-13] MEDS: ACETAMINOPHEN TAB 650MG DOSE (2X325MG) PO PRN (05:23)
[2019-07-13 06:00] VITALS: BP 132/75
[2019-07-13] MEDS: PERCOCET 5MG/325MG TAB PO PRN ×2 (06:06→13:18)
[2019-07-13 06:50] LABS: HEMATOCRIT 39.3 % (42.0-52.0); HEMOGLOBIN 13.3 g/dl (13.5-17.5); MEAN CORPUSCULAR HEMOGLOBIN 28.9 pg (27.0-33.0); MEAN CORPUSCULAR HGB CONC 33.8 g/dl (32.0-36.5); MEAN CORPUSCULAR VOLUME 85.4 fl (80.0-96.0); PLATELET COUNT, AUTOMATED 229 10^3/uL (150-450); WHITE BLOOD COUNT 19.2 10^3/uL (4.0-10.0)
[2019-07-13 07:22] LABS: BLOOD UREA NITROGEN 14 MG/DL (7-18); CALCIUM LEVEL 8.5 MG/DL (8.5-10.1); CARBON DIOXIDE LEVEL 33 MEQ/L (21-32); CHLORIDE LEVEL 99 MEQ/L (98-107); CREATININE FOR GFR 0.66 MG/DL (0.70-1.30); GLOMERULAR FILTRATION RATE > 60.0 (>56); GLUCOSE, FASTING 125 MG/DL (70-100); POTASSIUM SERUM 2.8 MEQ/L (3.5-5.1); SODIUM LEVEL 137 MEQ/L (136-145)
[2019-07-13] MEDS ORDERED: POTASSIUM CHLORIDE 10 MEQ SR TABLET PO ONE (09:00)
[2019-07-13] MEDS ORDERED: FLUBLOK(EGG FREE)(QUAD)INFLUENZA VACC 0.5ML SYRINGE (90682)18YRS&OLDER IM ONE (09:00)
[2019-07-13] MEDS: KCL 10MEQ/100ML SWI (KRUN) 10 MEQ in IV 1 EA IV SCH ×2 (09:09→12:35)
[2019-07-13] MEDS: ENOXAPARIN 40 MG/0.4 ML SYRINGE (J1650) SC SCH (09:09)
[2019-07-13] MEDS: HumaLOG INSULIN (NovoLOG) PER UNIT SC SCH ×4 (09:09→21:05)
[2019-07-13 14:00] VITALS: BP 127/60
[2019-07-13] MEDS ORDERED: PROHANCE 279.3MG/ML 5ML VIAL (A9576) As Ordered ONE (14:22)
[2019-07-13] MEDS ORDERED: PROHANCE 279.3MG/ML 15ML VIAL (A9576) As Ordered ONE (14:22)
[2019-07-13 14:55] VITALS: BP 156/73
--- NOTE | 2019-07-13 19:28 | IPNPDOC ---
Date Seen The patient was seen on 07/13/19. Progress Note SUBJECTIVE: Patient reports feeling better overall but has burning pain in his R. foot over wound. Otherwise no other complaints. Afebrile overnight, WBC 20->19. K 2.8. OBJECTIVE PHYSICAL EXAMINATION: VITAL SIGNS: Please see below. General: No acute distress, Alert Eyes: Normal sclera, EOMI, CHAD HENT: Atraumatic Cardiovascular: Normal rate, normal rhythm. Pulmonary: Clear to auscultation b/l, no wheezing GI: Soft, nontender, nondistended Skin: Warm and dry MSK: R. foot wrapped in dressing c/d/i. Neuro: CN grossly intact. No focal deficits. Psych: oriented x 3 LABORATORY DATA, IMAGING STUDIES, MICROBIOLOGY: Please see below. ASSESSMENT AND PLAN: 1. R. foot diabetic wound - Reported to be 2/2 traumatic injury from stepping on nail but patient denies any states that it came on suddenly on its own. - Failed outpatient PO abx treatment with cipro. - s/p I&D. f/u blood and wound culture. - Podiatry and ID following. - C/w Zosyn and vancomycin. 2. IDDM - Resume home medications with holding of metformin. - ISS. Check BS. 3. hearing impairment - congenital. no active issues. Code status: Full code Dispo: CM to assess home safety, reportedly has no hot water at his apartment and he cannot take care of himself adequately as a result of it. VS, I&O, 24H, Fishbone Vital Signs/I&O Vital Signs Date Time Temp Pulse Resp B/P (MAP) Pulse Ox O2 Delivery O2 Flow Rate FiO2 07/13/19 14:55 99.7 82 18 156/73 (100) 95 Room Air I&O- Last 24 Hours up to 6 AM 07/13/19 06:00 Intake Total 2740 ml Output Total 1000 ml Balance 1740 ml Laboratory Data 24H LABS Laboratory Tests 2 07/12/19 21:16: Bedside Glucose (Misc Panel) 248H 07/13/19 06:34: Nucleated Red Blood Cells % (auto) 0.0, Anion Gap 5L, Glomerular Filtration Rate > 60.0, Calcium Level 8.5 07/13/19 11:30: Bedside Glucose (Misc Panel) 134H 07/13/19 16:31: Bedside Glucose (Misc Panel) 354H 07/13/19 16:49: Vancomycin Level Trough 9.8L CBC/BMP Laboratory Tests 07/13/19 06:34 Microbiology Microbiology 07/12/19 Gram Stain - Final, Resulted 07/12/19 Wound Culture, Resulted Pending 07/12/19 Gram Stain - Final, Resulted 07/12/19 Wound Culture, Resulted Pending 07/12/19 Blood Culture - Preliminary, Resulted No growth after 24 hours . All specim... 07/12/19 Blood Culture - Preliminary, Resulted No growth after 24 hours . All specim... AUSTYN GIVENS MD Jul 13, 2019 19:28
--- NOTE | 2019-07-13 20:27 | PHACANCOPD ---
PHARMACY VANCOMYCIN DOSING Pt Demographics Demographics Patient Age:58 , Weight:95.500 , Gender: male Adjusted Body Weight Events Past 24 Hours Events Past 24 Hours: YES: Change in CrCl, Fever, Elevation in WBC Vancomycin Vancomycin indication: RT DIABETIC FOOT SSSI Vancomycin Target Ranges: 15-20 mcg/ml Vancomycin Load Y/N: Yes Load Dose Date Time Vancomycin Load Dose: 2GM Date: 07/13/19 Time: 2AM Vancomycin Dose Date: 07/13/19. Current Vancomycin Dose: [1.5GM IV Q8H (10:00)] Intermittent Dosing?: No Labs Labs Item Value Date Time White Blood Count 19.2 10^3/uL H 07/13/19 0634 Creatinine 0.66 MG/DL L 07/13/19 0634 Vancomycin Level Trough 9.8 UG/ML L 07/13/19 1649 Micro Microbiology 07/12/19 Gram Stain - Final, Resulted 07/12/19 Wound Culture, Resulted Pending 07/12/19 Gram Stain - Final, Resulted 07/12/19 Wound Culture, Resulted Pending 07/12/19 Blood Culture - Preliminary, Resulted No growth after 24 hours . All specim... 07/12/19 Blood Culture - Preliminary, Resulted No growth after 24 hours . All specim... Creatinine Clearance Date:07/12/19. Creatinine Clearance: [>60ml/min]. Assessment and Plan Maintaining Current Dose?: No Reason for dose change: Trough too low Pharmacist Note Pharmacist Note 07/13/19 @ 2029: Trough from 1700 today resulted in a vancomycin level of 9.8 mcg/dl. To achieve the desired goal of 15-20, the patient was increased to 1.5 grams of vancomycin every 8 hours. A trough was scheduled prior to the third dose from the dose change. We will continue to monitor and make adjustments as necessary. Date: 07/13/19. PharmD note: VANCO 2GM LOAD DOSE AT 2AM FOLLOWED BY 1GM IV Q8H STARTING AT 10AM. VANCO TROUGH WHEN AT STEADY STATE 07/06/19 SCR = 1.02 AD[facility] Jul 13, 2019 20:27
--- NOTE | 2019-07-13 20:40 | IPN ---
DATE: 07/13/2019 Mr. Yuan was seen tonight after he came back from [facility]. He was not able to continue the MRI and refused to stay any longer. He was complaining of increased thirst. He was seen in consultation with Dr. Skaggs. He has a low grade fever with a maximum temperature (T max) of 99.7. Dr. Skaggs had done a bedside incision and drainage (I and D) with a 15 blade. Fluid was expressed and a small culture wound was made around the previous site that had already been incised and drained by myself. There was some packing. On physical exam, temperature is 99.7, pulse 82, respirations 18, blood pressure 156/73, oxygen saturation (O2 sat) 95% on room air. Heart: Normal S1, S2. No murmurs, rubs or gallops. Lungs: A few expiratory wheezes. Abdomen: Soft, nontender. Right foot with a necrotic ulcer at the heel measuring about 3 x 3 cm and an extended area of erythema involving the whole heel through the midfoot. No effusion of the ankle. Normal range of motion. LABORATORY DATA: White count is 19.2, hemoglobin 13.3, hematocrit 39.3, platelets 229. Sodium 137, potassium 2.8, chloride 99, bicarbonate 33, BUN 14, creatinine 0.6, glucose 125, calcium 8.5, CRP 18.6. Wound Gram stain and cultures both had many gram-positive cocci in clusters, the one done on 07/12 at 1300 hours and 1607 hours. Blood cultures, two sets, are negative. IMAGING: Foot x-ray showed no acute changes, degenerative joint changes at the first metatarsophalangeal joint. IMPRESSION: Complicated skin and soft tissue infection with a necrotizing component from Staphylococcus (staph) aureus. Cultures are still pending. Patient currently on IV vancomycin and Zosyn. Not doing much better since on IV antibiotics. He will need an incision and drainage and MRI. Insulin-dependent diabetes. Sugars running between 134 and 409, poorly controlled. PLAN: The patient was advised he needs to have an MRI done tomorrow again. He would like to have the incision and drainage done in the operating room if it needs to be done. Continue IV vancomycin and Zosyn until results of cultures available and then de-escalate accordingly. MTDD
[2019-07-13 21:00] VITALS: BP 131/63
[2019-07-13] MEDS: LEVEMIR (INSULIN DETEMIR) 1 UNITS/0.01ML SC SCH (21:05)
[2019-07-13] MEDS: VANCOMYCIN HCL 500 MG in D5W MINI-BAG PLUS 100 ML IV SCH (21:05)
[2019-07-14] VITALS (7 sets, daily range): BP systolic 117–172; BP diastolic 59–92
[2019-07-14] MEDS: PERCOCET 5MG/325MG TAB PO PRN ×4 (01:01→20:51)
[2019-07-14] MEDS: VANCOMYCIN HCL 1,000 MG, VIAL MATE ADAPTER 1 EACH in D5W 250 ML IV SCH ×3 (01:26→20:52)
[2019-07-14] MEDS: PIPERACILLIN/TAZOBACTAM SOD 3.375 GM in D5W MINI-BAG PLUS 50 ML IV SCH ×4 (02:57→19:15)
[2019-07-14] MEDS: VANCOMYCIN HCL 500 MG in D5W MINI-BAG PLUS 100 ML IV SCH ×3 (03:54→22:01)
[2019-07-14 06:46] LABS: HEMATOCRIT 39.8 % (42.0-52.0); HEMOGLOBIN 13.6 g/dl (13.5-17.5); MEAN CORPUSCULAR HEMOGLOBIN 29.7 pg (27.0-33.0); MEAN CORPUSCULAR HGB CONC 34.2 g/dl (32.0-36.5); MEAN CORPUSCULAR VOLUME 86.9 fl (80.0-96.0); PLATELET COUNT, AUTOMATED 204 10^3/uL (150-450); RED BLOOD COUNT 4.58 10^6/uL (4.30-6.10); WHITE BLOOD COUNT 19.8 10^3/uL (4.0-10.0)
[2019-07-14 07:06] LABS: BLOOD UREA NITROGEN 11 MG/DL (7-18); CALCIUM LEVEL 8.6 MG/DL (8.5-10.1); CARBON DIOXIDE LEVEL 34 MEQ/L (21-32); CHLORIDE LEVEL 98 MEQ/L (98-107); CREATININE FOR GFR 0.91 MG/DL (0.70-1.30); GLOMERULAR FILTRATION RATE > 60.0 (>56); GLUCOSE, FASTING 175 MG/DL (70-100); POTASSIUM SERUM 3.1 MEQ/L (3.5-5.1); SODIUM LEVEL 136 MEQ/L (136-145)
[2019-07-14] MEDS: ENOXAPARIN 40 MG/0.4 ML SYRINGE (J1650) SC SCH (08:09)
[2019-07-14] MEDS: HumaLOG INSULIN (NovoLOG) PER UNIT SC SCH ×4 (08:25→21:00)
[2019-07-14] MEDS: MORPHINE 4 MG/ML 1ML VIAL/SYRINGE (J2270) IV PRN ×2 (11:56→23:04)
[2019-07-14] MEDS ORDERED: LIDOCAINE 1% SDV INJ 30 ML VIAL As Ordered ONE (18:00)
[2019-07-14] MEDS ORDERED: BUPIVACAINE HCL 0.5% 30 ML VIAL As Ordered ONE (18:00)
[2019-07-14] MEDS ORDERED: MIDAZOLAM INJ 2 MG/2 ML VIAL (J2250) As Ordered ONE (18:18)
[2019-07-14] MEDS ORDERED: PROPOFOL 200 MG/20 ML VIAL As Ordered ONE ×2 (18:18→18:45)
[2019-07-14] MEDS ORDERED: LIDOCAINE 2% INJ 100 MG/5 ML SDV (FOR ANES.) As Ordered ONE (18:18)
[2019-07-14] MEDS ORDERED: fentaNYL 100 MCG/2 ML INJECTION (J3010) As Ordered ONE (18:19)
[2019-07-14] MEDS ORDERED: ZOSYN 3.375 GM VIAL (J2543) As Ordered ONE (19:21)
[2019-07-14] MEDS ORDERED: POTASSIUM CHLORIDE 10 MEQ SR TABLET PO ONE (19:30)
--- NOTE | 2019-07-14 19:32 | IPNPDOC ---
Date Seen The patient was seen on 07/14/19. Progress Note SUBJECTIVE: Patient reports persistent pain but no other complaints. WBC 19.8. K 3.1. Wound culture + staph aureus. OBJECTIVE PHYSICAL EXAMINATION: VITAL SIGNS: Please see below. General: No acute distress, Alert Eyes: Normal sclera, EOMI, CHAD HENT: Atraumatic Cardiovascular: Normal rate, normal rhythm. Pulmonary: Clear to auscultation b/l, no wheezing GI: Soft, nontender, nondistended Skin: Warm and dry MSK: R. foot wrapped in dressing c/d/i. Neuro: CN grossly intact. No focal deficits. Psych: oriented x 3 LABORATORY DATA, IMAGING STUDIES, MICROBIOLOGY: Please see below. ASSESSMENT AND PLAN: 1. R. foot diabetic wound - Reported to be 2/2 traumatic injury from stepping on nail but patient denies any states that it came on suddenly on its own. - Failed outpatient PO abx treatment with cipro. - s/p I&D. Wound culture + s. aureus x2. Blood culture NTD. - Podiatry and ID following. - c/w Vancomycin for now. Repeat wound culture from today's procedure with Podiatry pending. 2. IDDM - Resume home medications with holding of metformin. - ISS. Check BS. 3. hearing impairment - congenital. no active issues. Code status: Full code Dispo: CM to assess home safety, reportedly has no hot water at his apartment and he cannot take care of himself adequately as a result of it. VS, I&O, 24H, Fishbone Vital Signs/I&O Vital Signs Date Time Temp Pulse Resp B/P (MAP) Pulse Ox O2 Delivery O2 Flow Rate FiO2 07/14/19 15:44 98.3 85 18 129/75 (93) 96 Room Air I&O- Last 24 Hours up to 6 AM 07/14/19 06:00 Intake Total 3110 ml Output Total 2350 ml Balance 760 ml Laboratory Data 24H LABS Laboratory Tests 2 07/13/19 20:42: Bedside Glucose (Misc Panel) 299H 07/14/19 06:34: Nucleated Red Blood Cells % (auto) 0.0, Anion Gap 4L, Glomerular Filtration Rate > 60.0, Calcium Level 8.6 07/14/19 08:58: Vancomycin Level Trough 16.5 07/14/19 12:08: Bedside Glucose (Misc Panel) 235H 07/14/19 16:51: Bedside Glucose (Misc Panel) 182H CBC/BMP Laboratory Tests 07/14/19 06:34 Microbiology Microbiology 07/12/19 Gram Stain - Final, Complete 07/12/19 Wound Culture - Final, Complete Staphylococcus Aureus 07/12/19 Gram Stain - Final, Complete 07/12/19 Wound Culture - Final, Complete Staphylococcus Aureus 07/12/19 Blood Culture - Preliminary, Resulted No Growth after 48 hours. All Specime... 07/12/19 Blood Culture - Preliminary, Resulted No Growth after 48 hours. All Specime... AUSTYN GIVENS MD Jul 14, 2019 19:32
[2019-07-14] MEDS ORDERED: LR 1,000 ML IV SCH (20:00)
[2019-07-14] MEDS ORDERED: PERCOCET 5MG/325MG TAB PO PRN (20:00)
[2019-07-14] MEDS ORDERED: ONDANSETRON 4MG/2ML VIAL (J2405) IV PRN (20:00)
[2019-07-14] MEDS ORDERED: METOCLOPRAMIDE INJ 10MG/2ML VIAL (J2765) IV PRN (20:00)
[2019-07-14] MEDS ORDERED: fentaNYL 100 MCG/2 ML INJECTION (J3010) IV PRN (20:00)
[2019-07-14] MEDS: LEVEMIR (INSULIN DETEMIR) 1 UNITS/0.01ML SC SCH (20:52)
[2019-07-15 00:15] VITALS: BP 163/72
[2019-07-15 01:15] VITALS: BP 152/57
[2019-07-15] MEDS: VANCOMYCIN HCL 1,000 MG, VIAL MATE ADAPTER 1 EACH in D5W 250 ML IV SCH ×2 (02:52→10:37)
[2019-07-15 04:00] VITALS: BP 125/66
[2019-07-15] MEDS: VANCOMYCIN HCL 500 MG in D5W MINI-BAG PLUS 100 ML IV SCH ×2 (04:03→12:44)
[2019-07-15 07:24] LABS: HEMATOCRIT 39.2 % (42.0-52.0); HEMOGLOBIN 13.2 g/dl (13.5-17.5); MEAN CORPUSCULAR HGB CONC 33.7 g/dl (32.0-36.5); MEAN CORPUSCULAR VOLUME 86.2 fl (80.0-96.0); PLATELET COUNT, AUTOMATED 219 10^3/uL (150-450); RED BLOOD COUNT 4.55 10^6/uL (4.30-6.10); WHITE BLOOD COUNT 20.7 10^3/uL (4.0-10.0)
[2019-07-15 07:42] LABS: BLOOD UREA NITROGEN 11 MG/DL (7-18); CALCIUM LEVEL 8.6 MG/DL (8.5-10.1); CARBON DIOXIDE LEVEL 31 MEQ/L (21-32); CHLORIDE LEVEL 95 MEQ/L (98-107); GLOMERULAR FILTRATION RATE > 60.0 (>56); GLUCOSE, FASTING 195 MG/DL (70-100); POTASSIUM SERUM 3.3 MEQ/L (3.5-5.1); SODIUM LEVEL 133 MEQ/L (136-145)
[2019-07-15] MEDS: PERCOCET 5MG/325MG TAB PO PRN (07:53)
[2019-07-15] MEDS: ENOXAPARIN 40 MG/0.4 ML SYRINGE (J1650) SC SCH (08:31)
[2019-07-15] MEDS: HumaLOG INSULIN (NovoLOG) PER UNIT SC SCH ×4 (08:31→20:37)
--- NOTE | 2019-07-15 08:52 | RO ---
DATE OF PROCEDURE: 07/14/2019 PREPROCEDURE DIAGNOSIS: Right foot ulceration and infection. POSTPROCEDURE DIAGNOSIS: Right foot ulceration and infection. PROCEDURE: Right foot incision and drainage and excisional wound debridement. SURGEON: Dr. Aman Skaggs [employer]: None. ANESTHESIA: Monitored anesthesia care. Preoperative injection of 20 mL of 1:1 mixture of 1% lidocaine plain and 1/2% Marcaine plain. ESTIMATED BLOOD LOSS: Minimal. MATERIALS: None. COMPLICATIONS: None. SPECIMEN: Right foot wound tissue and culture. DESCRIPTION OF PROCEDURE: Jose Yuan is a 58-year-old male who was admitted on 07/12/2019 due to a right foot infection. He had been seen for the same approximately two weeks ago in the emergency room (ER) and was discharged with oral antibiotics, however, his foot continued to worsen. He had an incision and drainage, both in the ER and then again by myself, on 07/12/2019 with some good expression of the purulent drainage. However, the erythema drainage as well as his white blood cell count did not continue to improve. An MRI was ordered, but was not able to be performed due to patient movement and adherence to procedure. Decision was made to bring him to the operating room for further debridement and incision and drainage. The patient site and side were identified and marked in preoperative holding area. Consent was reviewed and obtained. The risks, complications and alternatives to the procedure were explained to the patient in detail and all questions were answered. The patient was brought to the operating room and placed on the operating room in supine position. Monitored anesthesia care was provided by the anesthesia team. Preoperative injection of 20 mL of 1:1 mixture of 1% lidocaine plain and 0.25% Marcaine plain were injected to the right foot. The right foot was prepped and draped in normal sterile fashion. A tourniquet was applied to the right ankle and inflated at 250 mmHg. The plantar wound where the initial puncture wound site was, was noted to have necrotic tissue around it approximately circumferentially one inch. This was removed with #15 blade. Immediately significant purulent tissue was noted as well as significant fat necrosis. This tracked along the plantar fascia approximately one to two inches distally and proximally. This was removed with #10 blade as well as rongeur. A sample of the fascia was necrotic as well. Bone was inspected and did not have obvious involvement. 1500 mL of pulse irrigation were irrigated to the wound. The wound was inspected and some further necrotic tissue was debrided. Then, an additional 1500 mL were irrigated. Wound debridement tissue included skin, fat, fascia and muscle. This was removed excisionally and sent for pathology. Wound cultures were taken of the purulent fluid aerobic and anaerobic. Once no further purulence was noted, the wound was packed with saline soaked gauze and a gauze dressing was applied. The tourniquet was deflated and the patient was brought to the postanesthesia care unit (PACU) with vital signs stable and neurovascular status intact. He will be readmitted to the floor. He should be non weight bearing, resume dressing changes and continue antbiotics. The patient may require further incision and drainage. He is at risk for limb loss with this significant infection. If infection can be resolved, ultimately he will have wound Vac placement.
--- NOTE | 2019-07-15 11:58 | IPN ---
DATE OF SERVICE: 07/15/2019 The patient was seen and examined. He denies over complaints. He states that his foot does feel better. Vitals are reviewed. Temperature remains somewhat elevated, maximum temperature (t-max) was 99.8 and most recent was 99.2. Laboratories were reviewed. White cell count remains elevated at 20.7, hemoglobin is 13.2. Operating room cultures are pending. Other cultures both grew methicillin sensitive Staphylococcus aureus (MSSA). Lower extremity examination: The erythema surrounding the foot is improved. There is large ulceration now on the plantar surface of the foot. There is some necrotic tissue at the margins. With expression, there is no purulent drainage noted. ASSESSMENT: 58-year-old diabetic male with right foot cellulitis and abscess, status post incision and drainage. PLAN: Start saline wet to dry dressings three times daily. Continue antibiotics. Wait operating room cultures. We will continue to monitor. He may require addition incision and drainage if white blood cell count continues to be elevated. If infection continues to improve, we will plan dressing changes and ultimately plan for wound Vac placement once infection is well controlled. We will monitor.
[2019-07-15 14:00] VITALS: BP 135/79
[2019-07-15] MEDS ORDERED: DOCUSATE SODIUM 100 MG CAP PO PRN (16:30)
[2019-07-15] MEDS ORDERED: SENNA 8.6 MG TAB (SENOKOT) PO PRN (16:30)
[2019-07-15] MEDS: ceFAZolin SOD 2 GM in IV 1 EA IV SCH (17:00)
[2019-07-15 17:46] VITALS: BP 162/78
--- NOTE | 2019-07-15 17:53 | IPNPDOC ---
Date Seen The patient was seen on 07/15/19. Progress Note SUBJECTIVE: Patient is agitated saying he does not want to stay in the hospital Denies any actual physical complaints. WBC 19->20. OBJECTIVE PHYSICAL EXAMINATION: VITAL SIGNS: Please see below. General: No acute distress, Alert Eyes: Normal sclera, EOMI, CHAD HENT: Atraumatic Cardiovascular: Normal rate, normal rhythm. Pulmonary: Clear to auscultation b/l, no wheezing GI: Soft, nontender, nondistended Skin: Warm and dry MSK: R. foot wrapped in dressing c/d/i. Neuro: CN grossly intact. No focal deficits. Psych: oriented x 3 LABORATORY DATA, IMAGING STUDIES, MICROBIOLOGY: Please see below. ASSESSMENT AND PLAN: 1. R. foot diabetic wound - Reported to be 2/2 traumatic injury from stepping on nail but patient denies any states that it came on suddenly on its own. - Failed outpatient PO abx treatment with cipro. - s/p I&D. Wound culture + s. aureus x2. Blood culture NTD. - Podiatry and ID following. - c/w Cefazolin. Plan for wound vace placement once infection is better controlled. 2. IDDM - Resume home medications with holding of metformin. - ISS. Check BS. 3. hearing impairment - congenital. no active issues. Code status: Full code Dispo: CM to assess home safety, inadequate self care. VS, I&O, 24H, Fishbone Vital Signs/I&O Vital Signs Date Time Temp Pulse Resp B/P (MAP) Pulse Ox O2 Delivery O2 Flow Rate FiO2 07/15/19 14:00 98.0 91 18 135/79 (97) 96 Room Air I&O- Last 24 Hours up to 6 AM 07/15/19 06:00 Intake Total 3030 ml Output Total 2450 ml Balance 580 ml Laboratory Data 24H LABS Laboratory Tests 2 07/14/19 20:19: Bedside Glucose (Misc Panel) 167H 07/15/19 06:52: Nucleated Red Blood Cells % (auto) 0.0, Anion Gap 7L, Glomerular Filtration Rate > 60.0, Calcium Level 8.6 07/15/19 12:02: Bedside Glucose (Misc Panel) 412H 07/15/19 16:59: Bedside Glucose (Misc Panel) 153H CBC/BMP Laboratory Tests 07/15/19 06:52 Microbiology Microbiology 07/14/19 Wound Culture, Received Pending 07/14/19 Anaerobic Culture, Received Pending 07/12/19 Gram Stain - Final, Complete 07/12/19 Wound Culture - Final, Complete Staphylococcus Aureus 07/12/19 Gram Stain - Final, Complete 07/12/19 Wound Culture - Final, Complete Staphylococcus Aureus 07/12/19 Blood Culture - Preliminary, Resulted No Growth after 72 hours. All specime... 07/12/19 Blood Culture - Preliminary, Resulted No Growth after 72 hours. All specime... AUSTYN GIVENS MD Jul 15, 2019 17:53
--- NOTE | 2019-07-15 18:19 | IPN ---
DATE: 07/15/2019 Mr. Yuan feels better. He states his foot pain has improved. He started physical therapy. He went to the operating room (OR) yesterday with Dr. Skaggs, who debrided a very large abscess. Dr. Skaggs did not feel there was any bone involvement. It was above the plantar fascia. He denies any fever, chills, or shortness of breath. No nausea, vomiting, or diarrhea. He is still on intravenous (IV) vancomycin. Wound cultures were positive for methicillin-sensitive Staphylococcus aureus (MSSA) on July 12, two cultures. He also had an intraoperative wound culture done. LABORATORY DATA: White count 20.7, hemoglobin 13.2, hematocrit 39.2, platelets 219. Sodium 133, potassium 3.3, chloride 95, bicarbonate 31, BUN 11, creatinine 0.8, glucose 195, calcium 8.6. Wound cultures: MSSA. IMAGING STUDY: MRI was not finalized. MEDICATIONS: Vancomycin 1.5 grams IV every 4 hours. VITAL SIGNS: Temperature is 98, pulse 91, respirations 18, blood pressure 135/79, oxygen sat 96% on room air. Intraoperative report reviewed. There is necrotic tissue with significant purulent tissue and fat necrosis tracking along the plantar fascia, approximately 1-2 inches deep. The wound was irrigated with 1500 mL. All the necrotic fascia was excised. Today, lower extremity erythema of the foot was improved. There is large ulceration now on the plantar surface of the foot from surgery, necrotic tissue at the margins of the wound. There is no purulent discharge. IMPRESSION: 1. Necrotizing infection of the right foot, improving. Culture positive for MSSA. The patient still has persistent leukocytosis but clinically doing better. 2. Insulin-dependent diabetes, poorly controlled with his glucose ranging between 153-412. Currently on insulin 35 units at bedtime and sliding scale. PLAN: Discontinue IV vancomycin. The patient was switched to IV cefazolin 2 grams every 8 hours. Repeat complete blood count (CBC), C-reactive protein (CRP) in the morning . If CBC remains elevated, will obtain an MRI early next week, but Dr. Skaggs's suspicion that this osteomyelitis is unlikely. It did not track down to bone. [facility]
[2019-07-15 19:47] VITALS: BP 158/81
[2019-07-15] MEDS: LEVEMIR (INSULIN DETEMIR) 1 UNITS/0.01ML SC SCH (20:38)
[2019-07-16] MEDS: ceFAZolin SOD 2 GM in IV 1 EA IV SCH ×3 (00:09→16:56)
[2019-07-16 06:00] VITALS: BP 136/86
[2019-07-16 06:21] LABS: HEMATOCRIT 41.7 % (42.0-52.0); HEMOGLOBIN 14.1 g/dl (13.5-17.5); MEAN CORPUSCULAR HEMOGLOBIN 29.3 pg (27.0-33.0); MEAN CORPUSCULAR HGB CONC 33.8 g/dl (32.0-36.5); MEAN CORPUSCULAR VOLUME 86.7 fl (80.0-96.0); PLATELET COUNT, AUTOMATED 242 10^3/uL (150-450); RED BLOOD COUNT 4.81 10^6/uL (4.30-6.10); WHITE BLOOD COUNT 15.5 10^3/uL (4.0-10.0)
[2019-07-16 06:53] LABS: BLOOD UREA NITROGEN 13 MG/DL (7-18); CARBON DIOXIDE LEVEL 30 MEQ/L (21-32); CHLORIDE LEVEL 100 MEQ/L (98-107); CREATININE FOR GFR 0.76 MG/DL (0.70-1.30); GLOMERULAR FILTRATION RATE > 60.0 (>56); GLUCOSE, FASTING 172 MG/DL (70-100); POTASSIUM SERUM 3.3 MEQ/L (3.5-5.1); SODIUM LEVEL 137 MEQ/L (136-145)
[2019-07-16] MEDS: PERCOCET 5MG/325MG TAB PO PRN ×2 (08:22→16:57)
[2019-07-16] MEDS: HumaLOG INSULIN (NovoLOG) PER UNIT SC SCH ×4 (08:24→21:10)
[2019-07-16] MEDS: ENOXAPARIN 40 MG/0.4 ML SYRINGE (J1650) SC SCH (08:25)
[2019-07-16] MEDS ORDERED: POTASSIUM CHLORIDE 10 MEQ SR TABLET PO ONE (09:00)
--- NOTE | 2019-07-16 12:41 | IPN ---
DATE: 07/16/2019 The patient is seen and examined at bedside. States his foot seems to feel a little better. He is still having some fair amount of pain in this however. Vitals are reviewed. He has remained afebrile. Labs are reviewed. White blood cell count has improved to 15.5. CRP remains elevated at 20.7. All cultures at this point have grown Staphylococcus aureus methicillin-sensitive. Lower Extremity Examination: Erythema again somewhat improved. There is some necrotic tissue on the periphery of the wounds. ASSESSMENT: 58-year-old diabetic male with necrotizing infection status post incision and drainage. PLAN: Will plan repeat incision and drainage to remove some more of the necrotic tissue and to ensure no further purulence is noted. Continue antibiotics at this time. Continue saline wet to dry dressings. Hopefully, this will be the last incision and drainage required and then he can start wound Vac therapy next week once the majority of the necrotic tissue has been removed.
[2019-07-16 14:00] VITALS: BP 128/68
--- NOTE | 2019-07-16 14:21 | IPNPDOC ---
Date Seen The patient was seen on 07/16/19. Progress Note SUBJECTIVE: Patient appeared irritated again. States that he feels better. His foot does not hurt as much and wondering why he still is in the hospital. Reports that he can walk on it just fine. Afebrile overnight. WBC improving. OBJECTIVE PHYSICAL EXAMINATION: VITAL SIGNS: Please see below. General: No acute distress, Alert, irritable Eyes: Normal sclera, EOMI, CHAD HENT: Atraumatic Cardiovascular: Normal rate, normal rhythm. Pulmonary: Clear to auscultation b/l, no wheezing GI: Soft, nontender, nondistended Skin: Warm and dry MSK: R. foot wrapped in dressing c/d/i. Wound pack in dressing, tender when dressing removed for examination. Neuro: CN grossly intact. No focal deficits. Psych: oriented x 3 LABORATORY DATA, IMAGING STUDIES, MICROBIOLOGY: Please see below. ASSESSMENT AND PLAN: 1. R. foot diabetic wound - Reported to be 2/2 traumatic injury from stepping on nail but patient denies any states that it came on suddenly on its own. - Failed outpatient PO abx treatment with cipro. - s/p I&D. Wound culture + s. aureus x2. Blood culture NTD. - Podiatry and ID following. - c/w Cefazolin. Plan for repeat debridement and wound vac placement once infection is better controlled. 2. IDDM - Resume home medications with holding of metformin. - ISS. Check BS. 3. hearing impairment - congenital. no active issues. Code status: Full code Dispo: CM to assess home safety, inadequate self care. VS, I&O, [facility] Vital Signs/I&O Vital Signs Date Time Temp Pulse Resp B/P (MAP) Pulse Ox O2 Delivery O2 Flow Rate FiO2 07/16/19 08:52 16 07/16/19 06:00 98.0 82 136/86 (103) 97 07/15/19 19:47 Room Air I&O- Last 24 Hours up to 6 AM 07/16/19 06:00 Intake Total 2735 ml Output Total 4125 ml Balance -1390 ml Laboratory Data 24H LABS Laboratory Tests 2 07/15/19 16:59: Bedside Glucose (Misc Panel) 153H 07/15/19 19:54: Bedside Glucose (Misc Panel) 364H 07/16/19 05:25: Nucleated Red Blood Cells % (auto) 0.0, Anion Gap 7L, Glomerular Filtration Rate > 60.0, Calcium Level 9.0, C-Reactive Protein, Quantitative 20.70H 07/16/19 11:40: Bedside Glucose (Misc Panel) 195H CBC/BMP Laboratory Tests 07/16/19 05:25 Microbiology Microbiology 07/14/19 Wound Culture - Final, Complete Staphylococcus Aureus 07/14/19 Anaerobic Culture - Final, Complete 07/12/19 Gram Stain - Final, Complete 07/12/19 Wound Culture - Final, Complete Staphylococcus Aureus 07/12/19 Gram Stain - Final, Complete 07/12/19 Wound Culture - Final, Complete Staphylococcus Aureus 07/12/19 Blood Culture - Preliminary, Resulted No Growth after 72 hours. All specime... 07/12/19 Blood Culture - Preliminary, Resulted No Growth after 72 hours. All specime... AUSTYN GIVENS MD Jul 16, 2019 14:21
--- NOTE | 2019-07-16 14:30 | IPN ---
DATE: 07/16/2019 Mr. Yuan seems to be doing well except for some foot pain which has improved. He has no nausea, vomiting or diarrhea. No abdominal pain. He still has some redness in the area and he is going back to the operating room tomorrow with Dr. Skaggs for further debridement. Temperature is 98, pulse 82, respirations 16, blood pressure 136/86, O2 sat 97% on room air. Heart: Normal S1, S2. No murmurs. Lungs are clear. No wheezes, rales or rhonchi. Abdomen: Soft, nontender. No visceromegaly. Extremities: No edema. Right heel with a very large incision measuring about 10 cm x 5 cm with some darkened tissue, the plantar fascia is exposed. There is redness still around the incision site all the way to the medial malleolus which is tender to touch. The redness extends to the mid foot. Cultures are all positive for methicillin sensitive Staphylococcus aureus. IMPRESSION: 1. Necrotizing foot infection of the right foot with culture positive for MSSA with persistent leukocytosis and sed rate of 20.7. The patient is on IV cefazolin. 2. Insulin-dependent diabetes. Glucoses have been ranging between 195 and 400. PLAN: Continue IV cefazolin. The patient to go to the OR tomorrow for further debridement and I would suggest a wound Vac. There is significant maceration around the skin where wet-to-dry dressings are being placed. The patient does not have MRSA and no indication for contact isolation. Please discontinue contact isolation.
[2019-07-16] MEDS: LEVEMIR (INSULIN DETEMIR) 1 UNITS/0.01ML SC SCH (21:10)
[2019-07-17] MEDS: ceFAZolin SOD 2 GM in IV 1 EA IV SCH ×3 (01:38→16:40)
[2019-07-17 06:00] VITALS: BP 127/67
[2019-07-17 07:01] LABS: HEMATOCRIT 42.3 % (42.0-52.0); HEMOGLOBIN 14.3 g/dl (13.5-17.5); MEAN CORPUSCULAR HEMOGLOBIN 29.1 pg (27.0-33.0); MEAN CORPUSCULAR HGB CONC 33.8 g/dl (32.0-36.5); PLATELET COUNT, AUTOMATED 268 10^3/uL (150-450); RED BLOOD COUNT 4.92 10^6/uL (4.30-6.10); WHITE BLOOD COUNT 14.3 10^3/uL (4.0-10.0)
[2019-07-17] MEDS ORDERED: PROPOFOL 500 MG/50 ML VIAL As Ordered ONE (07:07)
[2019-07-17] MEDS ORDERED: LIDOCAINE 2% INJ 100 MG/5 ML SDV (FOR ANES.) As Ordered ONE (07:07)
[2019-07-17] MEDS ORDERED: dexameTHASONE 4 MG/ML 1ML VIAL (J1100) As Ordered ONE (07:07)
[2019-07-17] MEDS ORDERED: ONDANSETRON 4MG/2ML VIAL (J2405) As Ordered ONE (07:07)
[2019-07-17] MEDS ORDERED: MIDAZOLAM INJ 2 MG/2 ML VIAL (J2250) As Ordered ONE (07:16)
[2019-07-17] MEDS ORDERED: fentaNYL 100 MCG/2 ML INJECTION (J3010) As Ordered ONE (07:16)
[2019-07-17 07:28] LABS: BLOOD UREA NITROGEN 15 MG/DL (7-18); CARBON DIOXIDE LEVEL 29 MEQ/L (21-32); CHLORIDE LEVEL 101 MEQ/L (98-107); CREATININE FOR GFR 0.74 MG/DL (0.70-1.30); GLOMERULAR FILTRATION RATE > 60.0 (>56); GLUCOSE, FASTING 140 MG/DL (70-100); POTASSIUM SERUM 3.7 MEQ/L (3.5-5.1); SODIUM LEVEL 135 MEQ/L (136-145)
[2019-07-17] MEDS: HumaLOG INSULIN (NovoLOG) PER UNIT SC SCH ×4 (07:30→22:15)
[2019-07-17] MEDS ORDERED: LIDOCAINE 1% MDV 20ML VIAL As Ordered ONE (07:57)
[2019-07-17] MEDS ORDERED: BUPIVACAINE HCL 0.5% 10 ML VIAL As Ordered ONE (07:58)
[2019-07-17] MEDS ORDERED: LR 1,000 ML IV SCH (09:30)
[2019-07-17] MEDS ORDERED: fentaNYL 100 MCG/2 ML INJECTION (J3010) IV PRN (09:30)
[2019-07-17] MEDS ORDERED: PERCOCET 5MG/325MG TAB PO PRN (09:30)
[2019-07-17] MEDS ORDERED: ONDANSETRON 4MG/2ML VIAL (J2405) IV PRN (09:30)
[2019-07-17] MEDS ORDERED: METOCLOPRAMIDE INJ 10MG/2ML VIAL (J2765) IV PRN (09:30)
[2019-07-17 09:41] VITALS: BP 131/79
[2019-07-17] MEDS: PERCOCET 5MG/325MG TAB PO PRN ×2 (12:21→19:31)
--- NOTE | 2019-07-17 12:52 | IPNPDOC ---
Date Seen The patient was seen on 07/17/19. Progress Note SUBJECTIVE: Patient is not talking much this morning. Just nod or shook his head, looks somewhat angry as before. Has no reported complaints. Went to OR for repeat debridement again this morning. OBJECTIVE PHYSICAL EXAMINATION: VITAL SIGNS: Please see below. General: No acute distress, Alert, irritable Eyes: Normal sclera, EOMI, CHAD HENT: Atraumatic Cardiovascular: Normal rate, normal rhythm. Pulmonary: Clear to auscultation b/l, no wheezing GI: Soft, nontender, nondistended Skin: Warm and dry MSK: R. foot wrapped in dressing c/d/i. Wound packed in dressing. Neuro: CN grossly intact. No focal deficits. Psych: oriented x 3 LABORATORY DATA, IMAGING STUDIES, MICROBIOLOGY: Please see below. ASSESSMENT AND PLAN: 1. R. foot diabetic wound - Reported to be 2/2 traumatic injury from stepping on nail but patient denies any states that it came on suddenly on its own. - Failed outpatient PO abx treatment with cipro. - s/p Debridement x2. Wound culture + s. aureus x2. Blood culture NTD. - Podiatry and ID following. - c/w Cefazolin. Further debridement if needed per Podiatry. Wound vac placement once infection is better controlled. 2. IDDM - Resume home medications with holding of metformin. - ISS. Check BS. 3. hearing impairment - congenital. no active issues. Code status: Full code Dispo: CM to assess home safety, inadequate self care. VS, I&O, 24H, Fishbone Vital Signs/I&O Vital Signs Date Time Temp Pulse Resp B/P (MAP) Pulse Ox O2 Delivery O2 Flow Rate FiO2 07/17/19 12:21 20 Room Air 07/17/19 09:41 97.3 78 131/79 (96) 93 07/17/19 09:25 2 I&O- Last 24 Hours up to 6 AM 07/17/19 06:00 Intake Total 2330 ml Output Total 3325 ml Balance -995 ml Laboratory Data 24H LABS Laboratory Tests 2 07/16/19 16:27: Bedside Glucose (Misc Panel) 214H 07/16/19 20:47: Bedside Glucose (Misc Panel) 270H 07/17/19 06:37: Nucleated Red Blood Cells % (auto) 0.0, Anion Gap 5L, Glomerular Filtration Rate > 60.0, Calcium Level 9.0 07/17/19 09:14: Bedside Glucose (Misc Panel) 120H 07/17/19 11:55: Bedside Glucose (Misc Panel) 254H CBC/BMP Laboratory Tests 07/17/19 06:37 Microbiology Microbiology 07/14/19 Wound Culture - Final, Complete Staphylococcus Aureus 07/14/19 Anaerobic Culture - Final, Complete 07/12/19 Gram Stain - Final, Complete 07/12/19 Wound Culture - Final, Complete Staphylococcus Aureus 07/12/19 Gram Stain - Final, Complete 07/12/19 Wound Culture - Final, Complete Staphylococcus Aureus 07/12/19 Blood Culture - Preliminary, Resulted No Growth after 72 hours. All specime... 07/12/19 Blood Culture - Preliminary, Resulted No Growth after 72 hours. All specime... AUSTYN GIVENS MD Jul 17, 2019 12:52
[2019-07-17 14:00] VITALS: BP 140/67
[2019-07-17] MEDS: MORPHINE 4 MG/ML 1ML VIAL/SYRINGE (J2270) IV PRN (16:40)
[2019-07-17 22:00] VITALS: BP 132/83
[2019-07-17] MEDS: LEVEMIR (INSULIN DETEMIR) 1 UNITS/0.01ML SC SCH (22:14)
[2019-07-18] MEDS: ceFAZolin SOD 2 GM in IV 1 EA IV SCH ×3 (00:37→17:32)
[2019-07-18 06:00] VITALS: BP 134/84
[2019-07-18 06:10] LABS: HEMATOCRIT 43.2 % (42.0-52.0); HEMOGLOBIN 14.2 g/dl (13.5-17.5); MEAN CORPUSCULAR HEMOGLOBIN 28.3 pg (27.0-33.0); MEAN CORPUSCULAR HGB CONC 32.9 g/dl (32.0-36.5); MEAN CORPUSCULAR VOLUME 86.2 fl (80.0-96.0); PLATELET COUNT, AUTOMATED 280 10^3/uL (150-450); RED BLOOD COUNT 5.01 10^6/uL (4.30-6.10); WHITE BLOOD COUNT 16.6 10^3/uL (4.0-10.0)
[2019-07-18 06:29] LABS: BLOOD UREA NITROGEN 15 MG/DL (7-18); CALCIUM LEVEL 9.1 MG/DL (8.5-10.1); CARBON DIOXIDE LEVEL 29 MEQ/L (21-32); CHLORIDE LEVEL 101 MEQ/L (98-107); CREATININE FOR GFR 0.84 MG/DL (0.70-1.30); GLOMERULAR FILTRATION RATE > 60.0 (>56); GLUCOSE, FASTING 222 MG/DL (70-100); POTASSIUM SERUM 3.8 MEQ/L (3.5-5.1); SODIUM LEVEL 136 MEQ/L (136-145)
[2019-07-18] MEDS: HumaLOG INSULIN (NovoLOG) PER UNIT SC SCH ×4 (07:42→20:57)
[2019-07-18] MEDS: ENOXAPARIN 40 MG/0.4 ML SYRINGE (J1650) SC SCH (09:12)
[2019-07-18] MEDS: PERCOCET 5MG/325MG TAB PO PRN ×2 (12:29→21:21)
[2019-07-18 14:00] VITALS: BP 163/94
--- NOTE | 2019-07-18 14:51 | IPNPDOC ---
Date Seen The patient was seen on 07/18/19. Progress Note SUBJECTIVE: 58-year-old male with past medical history of diabetes mellitus, was admitted for right foot infection, underwent multiple surgical debridements by podiatry. Wound cultures grew MSSA, antibiotics downgraded to Ancef. He is currently resting in bed without any complaints, able to ambulate, reports pain with ambulation. He denies any short of breath, chest pain, vomiting, abdominal pain or diarrhea. 10 point review of system was negative except for above PHYSICAL EXAMINATION: VITAL SIGNS: Please see below. GENERAL: No distress HEENT: Normocephalic, atraumatic, moist mucous membranes NECK: Supple CARDIOVASCULAR EXAMINATION: S1, S2, no murmurs RESPIRATORY EXAMINATION: Clear to auscultation, no wheezing ABDOMINAL EXAMINATION: Soft, nontender, nondistended, positive bowel sounds EXTREMITIES: Right foot wound packed with dressing in place SKIN: No rash NEUROLOGICAL EXAMINATION: Alert and oriented 3, no focal deficits PSYCHIATRIC EXAMINATION: Calm and cooperative LABORATORY DATA, IMAGING STUDIES, MICROBIOLOGY: Please see below. DVT prophylaxis ordered?: Yes ASSESSMENT AND PLAN: 58-year-old male with past medical history of diabetes, admitted for right foot wound status post surgical debridement 2. PROBLEMS: 1. Right foot infection: Status post surgical debridement 2 by podiatry, cultures growing MSSA, continue Ancef, further debridement as per podiatry, followed by wound VAC, ID following; pain control with Percocet and morphine as needed. 2. Diabetes mellitus: Sliding scale insulin with finger sticks every before meals and at bedtime, continue Levemir. DVT prophylaxis: Lovenox. GI prophylaxis: Not needed VS, I&O, 24H, Fishbone Vital Signs/I&O Vital Signs Date Time Temp Pulse Resp B/P (MAP) Pulse Ox O2 Delivery O2 Flow Rate FiO2 07/18/19 12:59 18 Room Air 07/18/19 06:00 97.8 85 134/84 (101) 95 07/17/19 09:25 2 I&O- Last 24 Hours up to 6 AM 07/18/19 06:00 Intake Total 1996 ml Output Total 2910 ml Balance -914 ml Laboratory Data 24H LABS Laboratory Tests 2 07/17/19 16:32: Bedside Glucose (Misc Panel) 147H 07/17/19 21:30: Bedside Glucose (Misc Panel) 382H 07/18/19 05:58: Nucleated Red Blood Cells % (auto) 0.0, Anion Gap 6L, Glomerular Filtration Rate > 60.0, Calcium Level 9.1 07/18/19 11:45: Bedside Glucose (Misc Panel) 240H CBC/BMP Laboratory Tests 07/18/19 05:58 Microbiology Microbiology 07/14/19 Wound Culture - Final, Complete Staphylococcus Aureus 07/14/19 Anaerobic Culture - Final, Complete 07/12/19 Gram Stain - Final, Complete 07/12/19 Wound Culture - Final, Complete Staphylococcus Aureus 07/12/19 Gram Stain - Final, Complete 07/12/19 Wound Culture - Final, Complete Staphylococcus Aureus 07/12/19 Blood Culture - Final, Complete NO GROWTH AFTER 5 DAYS 07/12/19 Blood Culture - Final, Complete NO GROWTH AFTER 5 DAYS JUAN SALINAS MD Jul 18, 2019 14:51
[2019-07-18] MEDS: LEVEMIR (INSULIN DETEMIR) 1 UNITS/0.01ML SC SCH (20:56)
[2019-07-18 22:00] VITALS: BP 162/64
[2019-07-19] MEDS: ceFAZolin SOD 2 GM in IV 1 EA IV SCH ×3 (01:01→17:20)
[2019-07-19 06:00] VITALS: BP 151/94
[2019-07-19 06:17] LABS: HEMATOCRIT 43.1 % (42.0-52.0); HEMOGLOBIN 14.2 g/dl (13.5-17.5); MEAN CORPUSCULAR HEMOGLOBIN 28.6 pg (27.0-33.0); MEAN CORPUSCULAR HGB CONC 32.9 g/dl (32.0-36.5); MEAN CORPUSCULAR VOLUME 86.7 fl (80.0-96.0); PLATELET COUNT, AUTOMATED 288 10^3/uL (150-450); RED BLOOD COUNT 4.97 10^6/uL (4.30-6.10)
[2019-07-19 06:37] LABS: BLOOD UREA NITROGEN 17 MG/DL (7-18); CALCIUM LEVEL 9.1 MG/DL (8.5-10.1); CARBON DIOXIDE LEVEL 30 MEQ/L (21-32); CHLORIDE LEVEL 102 MEQ/L (98-107); CREATININE FOR GFR 0.76 MG/DL (0.70-1.30); GLOMERULAR FILTRATION RATE > 60.0 (>56); GLUCOSE, FASTING 145 MG/DL (70-100); MAGNESIUM LEVEL 1.6 MG/DL (1.8-2.4); POTASSIUM SERUM 3.8 MEQ/L (3.5-5.1); SODIUM LEVEL 137 MEQ/L (136-145)
[2019-07-19] MEDS: HumaLOG INSULIN (NovoLOG) PER UNIT SC SCH ×4 (07:30→21:18)
[2019-07-19] MEDS ORDERED: POTASSIUM CHLORIDE 10 MEQ SR TABLET PO ONE (09:00)
[2019-07-19] MEDS: ENOXAPARIN 40 MG/0.4 ML SYRINGE (J1650) SC SCH (09:22)
[2019-07-19] MEDS: MORPHINE 4 MG/ML 1ML VIAL/SYRINGE (J2270) IV PRN ×2 (09:53→15:54)
--- NOTE | 2019-07-19 09:59 | RO ---
DATE OF PROCEDURE: 07/17/2019 PREPROCEDURE DIAGNOSIS: Right foot ulcer and infection. POSTPROCEDURE DIAGNOSIS: Right foot ulcer and infection. PROCEDURE: Right foot incision and drainage and excisional wound debridement. SURGEON: Aman Skaggs DPM FLASH RANGING CREWMEMBER: None. ANESTHESIA: Monitored anesthesia care with preoperative injection of 20 mL of 1:1 mixture of 1% lidocaine plain and 0.5% Marcaine. ESTIMATED BLOOD LOSS: 10 mL. COMPLICATIONS: None. CONDITION: Stable. INDICATION: Mr. Yuan is a 58-year-old diabetic male who is admitted with right foot infection. He has had incision and drainage but noted to have persistent elevated white blood cell count and persistent drainage and necrosis in his ulceration. He presented to the operating room for further debridement. DESCRIPTION OF PROCEDURE: The patient, site and side were identified and marked in preoperative holding area. Consent was reviewed, including risks, benefits, complications and alternatives to the procedure explained in detail. All questions were answered. The patient was brought to the operating room and placed on the operating room table in supine position. Monitored anesthesia care was delivered by the anesthesia team. Preoperative injection of 20 mL of 1:1 mixture of 1% Lidocaine plain and 0.5% Marcaine plain were injected into the right foot. The right foot was prepped and draped in a normal sterile fashion. The tourniquet was applied to the right ankle and inflated to 250 mmHg. The wound was inspected. There was noted to be some necrotic fat circumferentially around the heel. There was some purulence noted mostly at the lateral aspect of the foot, tracking upwards towards the lateral ankle. This was opened with hemostat and a fair bit of purulence was drained. Necrotic tissue was removed with #15 blade and rongeur. Once there was no more significant necrotic tissue, the area was irrigated with 1000 liters of pulse lavage. The areas were expressed and no further purulence was noted following lavage. The wound was packed with saline soaked Kerlix and a gauze dressing. He is to be readmitted to the floor for continued antibiotics. Resume dressing changes tomorrow. We will follow. We will continue to monitor the wound and depending on progression may need further irrigation and debridement or if notably improved then he may ultimately be able to start wound Vac. Would not start wound Vac until purulence and necrosis is resolved.
[2019-07-19] MEDS: MAG SULF 1GM/100ML (MAG RUN) 1 GM in IV 1 EA IV SCH ×2 (10:25→11:32)
--- NOTE | 2019-07-19 12:05 | IPN ---
DATE OF SERVICE: 07/19/2019 The patient seen and examined. States he is having some pain in his foot. He feels as though there is some infection still deep in his foot. Vitals are reviewed. T-max is 99.5. Labs are reviewed. White blood cell count is 13, improved from 16.6. Lower extremity examination with erythema again improved. There is some remaining around the medial and lateral ankle. The wound is inspected. The wound bed is improved. Minimal necrosis. No purulence is noted. ASSESSMENT: 58-year-old diabetic male status post incision and drainage for right foot and ankle abscess. PLAN: Continue antibiotics. Continue saline wet-to-dry dressings three times daily. Will order MRI to evaluate for osteomyelitis or any residual abscess formation. The patient has had persistent drainage and persisting elevated white blood cell count despite multiple incision and drainages. If white blood cell count is further improved and MRI does not reveal further infection, will plan to transfer to wound Vac this week. Will follow.
[2019-07-19 14:00] VITALS: BP 124/73
--- NOTE | 2019-07-19 14:33 | IPNPDOC ---
Date Seen The patient was seen on 07/19/19. Progress Note SUBJECTIVE: 58-year-old male with past medical history of diabetes mellitus, was admitted for right foot infection, underwent multiple surgical debridements by podiatry. Wound cultures grew MSSA, antibiotics downgraded to Ancef. He is currently resting in bed without any complaints, able to ambulate, reports pain with ambulation. He denies any short of breath, chest pain, vomiting, abdominal pain or diarrhea. 07/19/2019 Patient in bed, comfortable, wants to go home, advised that history is not completed and he needs to stay longer, agreeable for now. Patient awaiting podiatry recommendations, no other complaint at this time. Patient denies short of breath, chest pain, nausea, vomiting, abdominal pain or diarrhea. 10 point review of system was negative except for above PHYSICAL EXAMINATION: VITAL SIGNS: Please see below. GENERAL: No distress HEENT: Normocephalic, atraumatic, moist mucous membranes NECK: Supple CARDIOVASCULAR EXAMINATION: S1, S2, no murmurs RESPIRATORY EXAMINATION: Clear to auscultation, no wheezing ABDOMINAL EXAMINATION: Soft, nontender, nondistended, positive bowel sounds EXTREMITIES: Right foot wound packed with dressing in place SKIN: No rash NEUROLOGICAL EXAMINATION: Alert and oriented 3, no focal deficits PSYCHIATRIC EXAMINATION: Calm and cooperative LABORATORY DATA, IMAGING STUDIES, MICROBIOLOGY: Please see below. DVT prophylaxis ordered?: Yes ASSESSMENT AND PLAN: 58-year-old male with past medical history of diabetes, admitted for right foot wound status post surgical debridement 2. PROBLEMS: 1. Right foot infection: Status post surgical debridement 2 by podiatry, cultures growing MSSA, continue Ancef, MRI pending to evaluate for ost eomyelitis, possible wound VAC later in the week if improving, ID following; pain control with Percocet and morphine as needed. 2. Diabetes mellitus: Sliding scale insulin with finger sticks every before meals and at bedtime, continue Levemir. DVT prophylaxis: Lovenox. GI prophylaxis: Not needed VS, I&O, 24H, Fishbone Vital Signs/I&O Vital Signs Date Time Temp Pulse Resp B/P (MAP) Pulse Ox O2 Delivery O2 Flow Rate FiO2 07/19/19 14:00 98.2 89 18 124/73 (90) 97 Room Air 07/17/19 09:25 2 I&O- Last 24 Hours up to 6 AM 10/28/19 06:00 Intake Total 1850 ml Output Total 900 ml Balance 950 ml Laboratory Data 24H LABS Laboratory Tests 2 07/18/19 16:41: Bedside Glucose (Misc Panel) 188H 07/18/19 20:20: Bedside Glucose (Misc Panel) 376H 07/19/19 05:21: Nucleated Red Blood Cells % (auto) 0.0, Anion Gap 5L, Glomerular Filtration Rate > 60.0, Calcium Level 9.1, Magnesium Level 1.6L 07/19/19 11:41: Bedside Glucose (Misc Panel) 259H CBC/BMP Laboratory Tests 07/19/19 05:21 Microbiology Microbiology 07/14/19 Wound Culture - Final, Complete Staphylococcus Aureus 07/14/19 Anaerobic Culture - Final, Complete 07/12/19 Gram Stain - Final, Complete 07/12/19 Wound Culture - Final, Complete Staphylococcus Aureus 07/12/19 Gram Stain - Final, Complete 07/12/19 Wound Culture - Final, Complete Staphylococcus Aureus 07/12/19 Blood Culture - Final, Complete NO GROWTH AFTER 5 DAYS 07/12/19 Blood Culture - Final, Complete NO GROWTH AFTER 5 DAYS JUAN SALINAS MD Jul 19, 2019 14:33
[2019-07-19] MEDS ORDERED: PROHANCE 279.3MG/ML 5ML VIAL (A9576) As Ordered ONE (16:49)
[2019-07-19] MEDS ORDERED: PROHANCE 279.3MG/ML 15ML VIAL (A9576) As Ordered ONE (16:49)
[2019-07-19] MEDS: LEVEMIR (INSULIN DETEMIR) 1 UNITS/0.01ML SC SCH (21:18)
[2019-07-19] MEDS: PERCOCET 5MG/325MG TAB PO PRN (21:19)
[2019-07-19 22:00] VITALS: BP 149/82
[2019-07-20] MEDS: ceFAZolin SOD 2 GM in IV 1 EA IV SCH ×3 (00:43→17:05)
[2019-07-20] MEDS: MORPHINE 4 MG/ML 1ML VIAL/SYRINGE (J2270) IV PRN ×2 (04:16→13:44)
[2019-07-20] MEDS: PERCOCET 5MG/325MG TAB PO PRN ×2 (05:36→15:08)
[2019-07-20 05:57] LABS: HEMATOCRIT 42.7 % (42.0-52.0); MEAN CORPUSCULAR HEMOGLOBIN 28.5 pg (27.0-33.0); MEAN CORPUSCULAR HGB CONC 32.8 g/dl (32.0-36.5); MEAN CORPUSCULAR VOLUME 86.8 fl (80.0-96.0); PLATELET COUNT, AUTOMATED 322 10^3/uL (150-450); RED BLOOD COUNT 4.92 10^6/uL (4.30-6.10)
[2019-07-20 06:00] VITALS: BP 130/87
[2019-07-20 06:15] LABS: BLOOD UREA NITROGEN 19 MG/DL (7-18); C REACTIVE PROTEIN QUANTITATIV 4.53 MG/DL (0.00-0.30); CALCIUM LEVEL 8.9 MG/DL (8.5-10.1); CARBON DIOXIDE LEVEL 29 MEQ/L (21-32); CHLORIDE LEVEL 103 MEQ/L (98-107); CREATININE FOR GFR 0.78 MG/DL (0.70-1.30); GLOMERULAR FILTRATION RATE > 60.0 (>56); GLUCOSE, FASTING 136 MG/DL (70-100); MAGNESIUM LEVEL 1.5 MG/DL (1.8-2.4); PHOSPHORUS LEVEL 3.1 MG/DL (2.5-4.9); POTASSIUM SERUM 3.9 MEQ/L (3.5-5.1); SODIUM LEVEL 137 MEQ/L (136-145)
[2019-07-20] MEDS: HumaLOG INSULIN (NovoLOG) PER UNIT SC SCH ×4 (07:47→21:14)
[2019-07-20] MEDS: ENOXAPARIN 40 MG/0.4 ML SYRINGE (J1650) SC SCH (09:20)
--- NOTE | 2019-07-20 09:52 | REP ---
MRI RIGHT FOOT WITH AND WITHOUT CONTRAST: TECHNIQUE: Multiple sequences were obtained in the axial, coronal and sagittal planes prior to and following the intravenous administration of 19 mL ProHance. There is ill-defined low signal on T1 and high signal on T2 in the calcaneus. Predominately posteriorly and inferiorly but also extending into the anterolateral aspect. There is associated enhancement with the intravenous administration of Gadolinium. Findings are consistent with osteomyelitis. Other osseous structures of the right foot do not demonstrate evidence of osteomyelitis or occult fracture. There is mild arthritic change at the first metatarsal phalangeal joint with mild subchondral marrow edema in the head of the first metatarsal. There is diffuse edema in the hind foot. There is a large soft-tissue ulcer inferiorly. There appear to be a few small foci of air in the adjacent soft-tissues. Small pocket of fluid is seen which probably communicates the large superficial ulcer, located along the lateral aspect of the calcaneus measuring approximately 2.2 x 2.7 x 0.6 cm. There appears to be a small focus of air in this fluid collection consistent with a small abscess. There is diffuse enhancement of the soft-tissues of the hind foot compatible with cellulitis. IMPRESSION: Findings compatible with osteomyelitis of the calcaneus inferiorly. Large overlying soft-tissue ulcer. Associated cellulitis of the inferior hind foot soft-tissues. Small pocket of fluid with small focus of air in the lateral soft tissues along the lateral aspect of the calcaneus consistent with a small abscess measuring 2.2 x 2.7 x 0.6 cm. This abuts the large soft-tissue ulcer and may be draining at that location. Electronically Signed by Jhonny Warren MD 07/20/2019 02:00 P
[2019-07-20] MEDS: MAG SULF 1GM/100ML (MAG RUN) 1 GM in IV 1 EA IV SCH ×4 (10:11→13:54)
--- NOTE | 2019-07-20 12:15 | IPNPDOC ---
Date Seen The patient was seen on 07/20/19. Progress Note SUBJECTIVE: 58-year-old male with past medical history of diabetes mellitus, was admitted for right foot infection, underwent multiple surgical debridements by podiatry. Wound cultures grew MSSA, antibiotics downgraded to Ancef. He is currently resting in bed without any complaints, able to ambulate, reports pain with ambulation. He denies any short of breath, chest pain, vomiting, abdominal pain or diarrhea. 07/19/2019 Patient in bed, comfortable, wants to go home, advised that history is not completed and he needs to stay longer, agreeable for now. Patient awaiting podiatry recommendations, no other complaint at this time. Patient denies short of breath, chest pain, nausea, vomiting, abdominal pain or diarrhea. 07/20/2019 Patient in bed, without any complaints, tolerating diet, eager to go home, awaiting MRI results. He denies any chest breath, chest pain, nausea, vomiting, abdominal pain or diarrhea. 10 point review of system was negative except for above PHYSICAL EXAMINATION: VITAL SIGNS: Please see below. GENERAL: No distress HEENT: Normocephalic, atraumatic, moist mucous membranes NECK: Supple CARDIOVASCULAR EXAMINATION: S1, S2, no murmurs RESPIRATORY EXAMINATION: Clear to auscultation, no wheezing ABDOMINAL EXAMINATION: Soft, nontender, nondistended, positive bowel sounds EXTREMITIES: Right foot wound packed with dressing in place SKIN: No rash NEUROLOGICAL EXAMINATION: Alert and oriented 3, no focal deficits PSYCHIATRIC EXAMINATION: Calm and cooperative LABORATORY DATA, IMAGING STUDIES, MICROBIOLOGY: Please see below. DVT prophylaxis ordered?: Yes ASSESSMENT AND PLAN: 58-year-old male with past medical history of diabetes, admitted for right foot wound status post surgical debridement 2. PROBLEMS: 1. Right foot infection: Status post surgical debridement 2 by podiatry, cultures growing MSSA, continue Ancef, MRI, positive for osteomyelitis, ID following; pain control with Percocet and morphine as needed. 2. Diabetes mellitus: Sliding scale insulin with finger sticks every before meals and at bedtime, continue Levemir. DVT prophylaxis: Lovenox. GI prophylaxis: Not needed VS, I&O, 24H, Fishbone Vital Signs/I&O Vital Signs Date Time Temp Pulse Resp B/P (MAP) Pulse Ox O2 Delivery O2 Flow Rate FiO2 07/20/19 06:06 72 18 07/20/19 06:00 98.0 130/87 (101) 96 07/19/19 16:05 Room Air 07/17/19 09:25 2 I&O- Last 24 Hours up to 6 AM0 07/20/19 06:00 Intake Total 1680 ml Output Total 1990 ml Balance -310 ml Laboratory Data 24H LABS Laboratory Tests 2 07/19/19 17:19: Bedside Glucose (Misc Panel) 225H 07/19/19 20:42: Bedside Glucose (Misc Panel) 257H 07/20/19 05:34: Nucleated Red Blood Cells % (auto) 0.0, Anion Gap 5L, Glomerular Filtration Rate > 60.0, Calcium Level 8.9, Phosphorus Level 3.1, Magnesium Level 1.5L, C- Reactive Protein, Quantitative 4.53H 07/20/19 11:41: Bedside Glucose (Misc Panel) 298H CBC/BMP Laboratory Tests 07/20/19 05:34 Microbiology Microbiology 07/14/19 Wound Culture - Final, Complete Staphylococcus Aureus 07/14/19 Anaerobic Culture - Final, Complete 07/12/19 Gram Stain - Final, Complete 07/12/19 Wound Culture - Final, Complete Staphylococcus Aureus 07/12/19 Gram Stain - Final, Complete 07/12/19 Wound Culture - Final, Complete Staphylococcus Aureus 07/12/19 Blood Culture - Final, Complete NO GROWTH AFTER 5 DAYS 07/12/19 Blood Culture - Final, Complete NO GROWTH AFTER 5 DAYS JUAN SALINAS MD Jul 20, 2019 12:14
--- NOTE | 2019-07-20 17:59 | IPN ---
DATE: 07/20/2019 SUBJECTIVE: Mr. Yuan was seen and examined this afternoon. He states that his foot pain continues to improve. He denies any nausea, vomiting or diarrhea. He denies any abdominal pain. He was taken to the operating room previously for debridement of the wound as well as packing. He had a foot MRI completed which demonstrated findings compatible with osteomyelitis of the calcaneus inferiorly on the right as well as a large overlying soft tissue ulcer. He has associated cellulitis of the inferior hindfoot in the soft tissues and a small pocket of fluid with small focus of air on the lateral soft tissues on lateral aspect of the calcaneus consistent with a small abscess. The patient states that his pain is well controlled. He is currently denying any chills or fevers. OBJECTIVE: Vitals: Temperature 98.0, pulse 79, respiratory rate 20, blood pressure 130/87, pulse oximetry 96% on room air. General: Patient is awake, alert, and oriented. He does not appear in acute distress. He is lying comfortably. HEENT: Atraumatic, normocephalic. Eyes are nonicteric. Trachea is midline. Dentition is poor. Cardiovascular: Normal S1, S2. Regular rate and rhythm. No clicks, rales or murmurs. Respiratory: Clear vesicular breath sounds bilaterally. Good respiratory effort. No wheezes, rhonchi or rales. Abdomen: Soft, it is nondistended. It is nontender to palpation. There is no rebound tenderness or guarding. Positive bowel sounds throughout. Extremities: No edema bilateral lower extremities. The patient's right heel has a large incision approximately 10 x 5 cm. The incision site extends down to the calcaneus. There is no purulent drainage present. Psych: Affect appears appropriate. LABORATORY DATA: Hematology: White blood cell 13.0, hemoglobin 14.0, hematocrit 42.7, platelet count 322. Chemistry: Sodium 137, potassium 3.9, chloride 103, CO2 29, BUN 19, creatinine 0.78, fasting glucose 136. Calcium 8.9. Phosphorous 3.1. Magnesium 1.5. C-reactive protein 4.53. IMAGING: Foot MRI: Findings compatible with osteomyelitis of the calcaneus inferiorly and large overlying soft tissue ulcer, associated cellulitis of the inferior hindfoot soft tissues. Small pocket of fluid with small focus of air in the lateral soft tissues along the lateral aspect of the calcaneus consistent with a small abscess measuring 2.2 x 2.7 x 0.6 cm abutting the large soft tissue ulcer and maybe draining at that location. ASSESSMENT AND PLAN: 1. Right foot necrotizing infection with osteomyelitis of the calcaneus and culture positive MSSA: Patient is currently on IV cefazolin which will be continued. He has had debridement previously by Dr. Skaggs. Patient is planned to receive additional debridement tomorrow as well as drainage of his abscess at which point the patient will have a wound VAC placed. He will likely need halfway or senior care care placement for continued antibiotic therapy. 2. Insulin dependent diabetes mellitus. Patient has poorly controlled diabetes. He is currently receiving 35 units insulin Levemir every night as well as sliding scale insulin. My faculty preceptor for this patient encounter was physically present during the encounter and was fully available. All aspects of the patient interview, examination, medical decision making process, and medical care plan development were reviewed and approved by the faculty preceptor. The faculty preceptor is aware and concurs with the plan as stated in the body of this note and will attest to such by his/her co-signature. SOFY
[2019-07-20] MEDS: LEVEMIR (INSULIN DETEMIR) 1 UNITS/0.01ML SC SCH (21:14)
[2019-07-20 22:00] VITALS: BP 135/78
[2019-07-21] VITALS (8 sets, daily range): BP systolic 107–147; BP diastolic 62–99
[2019-07-21] MEDS: ceFAZolin SOD 2 GM in IV 1 EA IV SCH ×3 (00:25→16:00)
[2019-07-21] MEDS: MORPHINE 4 MG/ML 1ML VIAL/SYRINGE (J2270) IV PRN (00:26)
[2019-07-21 06:14] LABS: HEMATOCRIT 44.1 % (42.0-52.0); HEMOGLOBIN 14.4 g/dl (13.5-17.5); MEAN CORPUSCULAR HEMOGLOBIN 28.6 pg (27.0-33.0); MEAN CORPUSCULAR HGB CONC 32.7 g/dl (32.0-36.5); MEAN CORPUSCULAR VOLUME 87.7 fl (80.0-96.0); PLATELET COUNT, AUTOMATED 358 10^3/uL (150-450); RED BLOOD COUNT 5.03 10^6/uL (4.30-6.10); WHITE BLOOD COUNT 11.7 10^3/uL (4.0-10.0)
[2019-07-21 06:33] LABS: ALBUMIN 2.7 GM/DL (3.2-5.2); ALT/SGPT 18 U/L (12-78); BILIRUBIN,TOTAL 0.3 MG/DL (0.2-1.0); BLOOD UREA NITROGEN 18 MG/DL (7-18); CALCIUM LEVEL 8.5 MG/DL (8.5-10.1); CARBON DIOXIDE LEVEL 28 MEQ/L (21-32); CHLORIDE LEVEL 102 MEQ/L (98-107); CREATININE FOR GFR 0.79 MG/DL (0.70-1.30); GLOMERULAR FILTRATION RATE > 60.0 (>56); GLUCOSE, FASTING 109 MG/DL (70-100); MAGNESIUM LEVEL 1.7 MG/DL (1.8-2.4); POTASSIUM SERUM 3.8 MEQ/L (3.5-5.1); SODIUM LEVEL 137 MEQ/L (136-145); TOTAL PROTEIN 7.5 GM/DL (6.4-8.2)
[2019-07-21] MEDS: HumaLOG INSULIN (NovoLOG) PER UNIT SC SCH ×4 (07:30→21:40)
[2019-07-21] MEDS ORDERED: LIDOCAINE 2% INJ 100 MG/5 ML SDV (FOR ANES.) As Ordered ONE (10:46)
[2019-07-21] MEDS ORDERED: MIDAZOLAM INJ 2 MG/2 ML VIAL (J2250) As Ordered ONE (10:46)
[2019-07-21] MEDS ORDERED: fentaNYL 100 MCG/2 ML INJECTION (J3010) As Ordered ONE (10:46)
[2019-07-21] MEDS ORDERED: PROPOFOL 200 MG/20 ML VIAL As Ordered ONE ×2 (10:46→13:24)
[2019-07-21] MEDS ORDERED: dexameTHASONE 4 MG/ML 1ML VIAL (J1100) As Ordered ONE (10:46)
[2019-07-21] MEDS ORDERED: ONDANSETRON 4MG/2ML VIAL (J2405) As Ordered ONE (10:46)
[2019-07-21] MEDS ORDERED: LIDOCAINE 1% MDV 20ML VIAL As Ordered ONE (12:19)
[2019-07-21] MEDS ORDERED: BUPIVACAINE HCL 0.5% 10 ML VIAL As Ordered ONE (12:19)
[2019-07-21] MEDS ORDERED: LR 1,000 ML IV SCH (14:00)
[2019-07-21] MEDS ORDERED: fentaNYL 100 MCG/2 ML INJECTION (J3010) IV PRN (14:00)
[2019-07-21] MEDS ORDERED: METOCLOPRAMIDE INJ 10MG/2ML VIAL (J2765) IV PRN (14:00)
[2019-07-21] MEDS ORDERED: ONDANSETRON 4MG/2ML VIAL (J2405) IV PRN (14:00)
[2019-07-21] MEDS ORDERED: oxyCODONE 5MG TAB PO PRN (14:00)
--- NOTE | 2019-07-21 14:22 | RO ---
DATE OF SURGERY: 07/21/2019 PREOPERATIVE DIAGNOSIS: Right heel ulceration and infection. POSTOPERATIVE DIAGNOSIS: Right heel ulceration and infection. PROCEDURE: Right foot incision and drainage and partial wound closure. SURGEON: Aman Skaggs DPM CREW BOSS: None ANESTHESIA: Monitored anesthesia care with preoperative injection of 17 mL of 1:1 mixture of 1% lidocaine plain and 0.5% Marcaine plain. ESTIMATED BLOOD LOSS: 5. MATERIALS: 3-0 nylon. INJECTABLES: None. COMPLICATIONS: None. CONDITION: Stable. Jose Yuan is a 58-year-old male who has been under treatment for right heel abscess. He has had numerous incisions and drainages. He has slowly been improving in terms of white blood cell count, erythema, temperature, and wound. An MRI was performed, which showed some concerns for a persisting abscess on the lateral heel, as well as concerns for osteomyelitis. He was brought to the operating room to evaluate the heel, as well as possibly close the wound. The patient's side and site were identified and marked in the preoperative holding area. Consent was reviewed and obtained. All risks, complications, and alternatives of the procedure were explained to the patient in detail, and questions were answered. DESCRIPTION OF PROCEDURE: The patient was brought to the operating room and placed on the operating room table in the supine position. Monitored anesthesia care was delivered by the anesthesia team. Preoperative injection of 17 mL of 1:1 mixture of 1% lidocaine plain and 0.5% Marcaine plain were injected to the right foot. The right foot was prepped and draped in normal sterile fashion. No tourniquet was used during the procedure. Wounds inspected. There was minimal necrotic tissue on the periphery of the wounds. No purulence was noted. A Mounika was used to insert and create plane to the lateral heel, and there was no purulence or fluid coming from this site. The site was then irrigated with pulse lavage 1000 liters normal saline, and the necrotic tissue was removed with rongeur, and the distal and proximal portions of the wound were repaired with 3-0 nylon. The central wound was packed with saline gauze. The patient was brought to postanesthesia care unit (PACU) with vital signs stable and neurovascular status intact. He will be readmitted to the floor. Continue antibiotics. Most likely, plan on having wound vacuum-assisted closure (VAC) applied tomorrow. Arrangements should start being made for either halfway or home care for wound VAC maintenance.
[2019-07-21] MEDS: PERCOCET 5MG/325MG TAB PO PRN ×2 (16:00→21:44)
[2019-07-21] MEDS: LEVEMIR (INSULIN DETEMIR) 1 UNITS/0.01ML SC SCH (21:42)
[2019-07-22] MEDS: ceFAZolin SOD 2 GM in IV 1 EA IV SCH ×3 (01:29→17:30)
[2019-07-22 06:00] VITALS: BP 122/62
[2019-07-22 06:55] LABS: HEMATOCRIT 43.3 % (42.0-52.0); MEAN CORPUSCULAR HEMOGLOBIN 28.6 pg (27.0-33.0); MEAN CORPUSCULAR HGB CONC 32.3 g/dl (32.0-36.5); MEAN CORPUSCULAR VOLUME 88.5 fl (80.0-96.0); PLATELET COUNT, AUTOMATED 347 10^3/uL (150-450); RED BLOOD COUNT 4.89 10^6/uL (4.30-6.10); WHITE BLOOD COUNT 10.7 10^3/uL (4.0-10.0)
[2019-07-22 07:19] LABS: ALBUMIN 2.7 GM/DL (3.2-5.2); ALT/SGPT 16 U/L (12-78); BILIRUBIN,TOTAL 0.3 MG/DL (0.2-1.0); BLOOD UREA NITROGEN 18 MG/DL (7-18); CALCIUM LEVEL 8.8 MG/DL (8.5-10.1); CARBON DIOXIDE LEVEL 27 MEQ/L (21-32); CHLORIDE LEVEL 104 MEQ/L (98-107); CREATININE FOR GFR 0.79 MG/DL (0.70-1.30); GLOMERULAR FILTRATION RATE > 60.0 (>56); GLUCOSE, FASTING 130 MG/DL (70-100); MAGNESIUM LEVEL 1.4 MG/DL (1.8-2.4); PHOSPHORUS LEVEL 2.9 MG/DL (2.5-4.9); SODIUM LEVEL 137 MEQ/L (136-145); TOTAL PROTEIN 7.8 GM/DL (6.4-8.2)
[2019-07-22] MEDS: ENOXAPARIN 40 MG/0.4 ML SYRINGE (J1650) SC SCH (08:02)
[2019-07-22] MEDS: HumaLOG INSULIN (NovoLOG) PER UNIT SC SCH ×4 (08:02→21:01)
--- NOTE | 2019-07-22 08:21 | IPNPDOC ---
Date Seen The patient was seen on 07/21/19. Progress Note SUBJECTIVE: 58-year-old male with past medical history of diabetes mellitus, was admitted for right foot infection, underwent multiple surgical debridements by podiatry. Wound cultures grew MSSA, antibiotics downgraded to Ancef. He is currently resting in bed without any complaints, able to ambulate, reports pain with ambulation. He denies any short of breath, chest pain, vomiting, abdominal pain or diarrhea. 07/19/2019 Patient in bed, comfortable, wants to go home, advised that history is not completed and he needs to stay longer, agreeable for now. Patient awaiting podiatry recommendations, no other complaint at this time. Patient denies short of breath, chest pain, nausea, vomiting, abdominal pain or diarrhea. 07/20/2019 Patient in bed, without any complaints, tolerating diet, eager to go home, awaiting MRI results. He denies any chest breath, chest pain, nausea, vomiting, abdominal pain or diarrhea. 07/21/2019. Patient comfortable in bed, without any complaints at this time, he is scheduled for another debridement later today, followed by wound VAC placement. Patient eager to leave, discussed that given his home situation, legal situation, physical therapy recommendations he would likely require rehabilitation/prison placement after discharge. 10 point review of system was negative except for above PHYSICAL EXAMINATION: VITAL SIGNS: Please see below. GENERAL: No distress HEENT: Normocephalic, atraumatic, moist mucous membranes NECK: Supple CARDIOVASCULAR EXAMINATION: S1, S2, no murmurs RESPIRATORY EXAMINATION: Clear to auscultation, no wheezing ABDOMINAL EXAMINATION: Soft, nontender, nondistended, positive bowel sounds EXTREMITIES: Right foot wound packed with dressing in place SKIN: No rash NEUROLOGICAL EXAMINATION: Alert and oriented 3, no focal deficits PSYCHIATRIC EXAMINATION: Calm and cooperative LABORATORY DATA, IMAGING STUDIES, MICROBIOLOGY: Please see below. DVT prophylaxis ordered?: Yes ASSESSMENT AND PLAN: 58-year-old male with past medical history of diabetes, admitted for right foot wound status post surgical debridement 2. PROBLEMS: 1. Right foot infection: Status post surgical debridement 2 by podiatry, cultures growing MSSA, continue Ancef, MRI positive for osteomyelitis, scheduled for debridement today, followed by wound VAC placement, ID following; pain control with Percocet and morphine as needed. 2. Diabetes mellitus: Sliding scale insulin with finger sticks every before meals and at bedtime, continue Levemir. DVT prophylaxis: Lovenox. GI prophylaxis: Not needed VS, I&O, 24H, Fishbone Vital Signs/I&O Vital Signs Date Time Temp Pulse Resp B/P (MAP) Pulse Ox O2 Delivery O2 Flow Rate FiO2 07/22/19 06:00 97.1 74 16 122/62 (82) 96 Room Air 07/17/19 09:25 2 I&O- Last 24 Hours up to 6 AM 07/22/19 06:00 Intake Total 2220 ml Output Total 1430 ml Balance 790 ml Laboratory Data 24H LABS Laboratory Tests 2 07/21/19 13:04: Bedside Glucose (Misc Panel) 146H 07/21/19 15:09: Bedside Glucose (Misc Panel) 126H 07/21/19 17:21: Bedside Glucose (Misc Panel) 279H 07/21/19 21:19: Bedside Glucose (Misc Panel) 269H 07/22/19 06:29: Nucleated Red Blood Cells % (auto) 0.0, Anion Gap 6L, Glomerular Filtration Rate > 60.0, Calcium Level 8.8, Phosphorus Level 2.9, Magnesium Level 1.4L, Total Bilirubin 0.3, Aspartate Amino Transf (AST/SGOT) 9, Alanine Aminotransferase (ALT/SGPT) 16, Alkaline Phosphatase 97, Total Protein 7.8, Albumin 2.7L, Albumin/Globulin Ratio 0.53L CBC/BMP Laboratory Tests 07/22/19 06:29 Microbiology Microbiology 07/14/19 Wound Culture - Final, Complete Staphylococcus Aureus 07/14/19 Anaerobic Culture - Final, Complete 07/12/19 Gram Stain - Final, Complete 07/12/19 Wound Culture - Final, Complete Staphylococcus Aureus 07/12/19 Gram Stain - Final, Complete 07/12/19 Wound Culture - Final, Complete Staphylococcus Aureus 07/12/19 Blood Culture - Final, Complete NO GROWTH AFTER 5 DAYS 07/12/19 Blood Culture - Final, Complete NO GROWTH AFTER 5 DAYS JUAN SALINAS MD Jul 22, 2019 08:21
[2019-07-22 10:00] VITALS: BP 133/84
[2019-07-22] MEDS: PERCOCET 5MG/325MG TAB PO PRN ×2 (11:25→21:10)
[2019-07-22] MEDS: MAG SULF 1GM/100ML (MAG RUN) 1 GM in IV 1 EA IV SCH ×5 (12:40→17:35)
[2019-07-22 14:00] VITALS: BP 134/84
--- NOTE | 2019-07-22 14:00 | IPNPDOC ---
Date Seen The patient was seen on 07/22/19. Progress Note SUBJECTIVE: 58-year-old male with past medical history of diabetes mellitus, was admitted for right foot infection, underwent multiple surgical debridements by podiatry. Wound cultures grew MSSA, antibiotics downgraded to Ancef. He is currently resting in bed without any complaints, able to ambulate, reports pain with ambulation. He denies any short of breath, chest pain, vomiting, abdominal pain or diarrhea. 07/19/2019 Patient in bed, comfortable, wants to go home, advised that history is not completed and he needs to stay longer, agreeable for now. Patient awaiting podiatry recommendations, no other complaint at this time. Patient denies short of breath, chest pain, nausea, vomiting, abdominal pain or diarrhea. 07/20/2019 Patient in bed, without any complaints, tolerating diet, eager to go home, awaiting MRI results. He denies any chest breath, chest pain, nausea, vomiting, abdominal pain or diarrhea. 07/21/2019. Patient comfortable in bed, without any complaints at this time, he is scheduled for another debridement later today, followed by wound VAC placement. Patient eager to leave, discussed that given his home situation, legal situation, physical therapy recommendations he would likely require rehabilitation/longterm placement after discharge. 07/22/2019 Patient in bed, disgruntled, angry about not being able to contact his legal team, wishing to go home, concerned about going to [place] [facility]. He denies any physical complaints at this time. 10 point review of system was negative except for above PHYSICAL EXAMINATION: VITAL SIGNS: Please see below. GENERAL: No distress HEENT: Normocephalic, atraumatic, moist mucous membranes NECK: Supple CARDIOVASCULAR EXAMINATION: S1, S2, no murmurs RESPIRATORY EXAMINATION: Clear to auscultation, no wheezing ABDOMINAL EXAMINATION: Soft, nontender, nondistended, positive bowel sounds EXTREMITIES: Right foot wound packed with dressing in place SKIN: No rash NEUROLOGICAL EXAMINATION: Alert and oriented 3, no focal deficits PSYCHIATRIC EXAMINATION: Calm and cooperative LABORATORY DATA, IMAGING STUDIES, MICROBIOLOGY: Please see below. DVT prophylaxis ordered?: Yes ASSESSMENT AND PLAN: 58-year-old male with past medical history of diabetes, admitted for right foot wound status post surgical debridement 2. PROBLEMS: 1. 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 2. Diabetes mellitus: Sliding scale insulin with finger sticks every before meals and at bedtime, continue Levemir. DVT prophylaxis: Lovenox. GI prophylaxis: Not needed VS, I&O, 24H, Fishbone Vital Signs/I&O Vital Signs Date Time Temp Pulse Resp B/P (MAP) Pulse Ox O2 Delivery O2 Flow Rate FiO2 07/22/19 11:55 0 07/22/19 10:00 98.8 90 133/84 (100) 92 Room Air 07/17/19 09:25 2 I&O- Last 24 Hours up to 6 AM 07/22/19 06:00 Intake Total 2220 ml Output Total 1430 ml Balance 790 ml Laboratory Data 24H LABS Laboratory Tests 2 07/21/19 15:09: Bedside Glucose (Misc Panel) 126H 07/21/19 17:21: Bedside Glucose (Misc Panel) 279H 07/21/19 21:19: Bedside Glucose (Misc Panel) 269H 07/22/19 06:29: Nucleated Red Blood Cells % (auto) 0.0, Anion Gap 6L, Glomerular Filtration Rate > 60.0, Calcium Level 8.8, Phosphorus Level 2.9, Magnesium Level 1.4L, Total Bilirubin 0.3, Aspartate Amino Transf (AST/SGOT) 9, Alanine Aminotransferase (ALT/SGPT) 16, Alkaline Phosphatase 97, Total Protein 7.8, Albumin 2.7L, Albumin/Globulin Ratio 0.53L 07/22/19 12:43: Bedside Glucose (Misc Panel) 327H CBC/BMP Laboratory Tests 07/22/19 06:29 Microbiology Microbiology 07/14/19 Wound Culture - Final, Complete Staphylococcus Aureus 07/14/19 Anaerobic Culture - Final, Complete 07/12/19 Gram Stain - Final, Complete 07/12/19 Wound Culture - Final, Complete Staphylococcus Aureus 07/12/19 Gram Stain - Final, Complete 07/12/19 Wound Culture - Final, Complete Staphylococcus Aureus 07/12/19 Blood Culture - Final, Complete NO GROWTH AFTER 5 DAYS 07/12/19 Blood Culture - Final, Complete NO GROWTH AFTER 5 DAYS JUAN SALINAS MD Jul 22, 2019 14:00
[2019-07-22] MEDS ORDERED: LIDOCAINE 1% MDV 20ML VIAL As Ordered ONE (15:46)
[2019-07-22] MEDS ORDERED: MAG SULF 1GM/100ML (MAG RUN) 1 GM in IV 1 EA IV SCH (17:00)
[2019-07-22] MEDS ORDERED: MAGNESIUM SULFATE 1 GM/100 ML D5W BAG (10MG/ML) (J3475) As Ordered ONE (17:23)
[2019-07-22 18:00] VITALS: BP 130/82
[2019-07-22] MEDS: SODIUM CHLORIDE 0.9% INJ 10 ML SYR IV PRN (20:51)
[2019-07-22] MEDS: LEVEMIR (INSULIN DETEMIR) 1 UNITS/0.01ML SC SCH (21:03)
[2019-07-22 22:00] VITALS: BP 131/78
[2019-07-23] MEDS: ceFAZolin SOD 2 GM in IV 1 EA IV SCH ×3 (01:44→18:05)
[2019-07-23 06:00] VITALS: BP 129/79
[2019-07-23 06:34] LABS: HEMATOCRIT 42.7 % (42.0-52.0); HEMOGLOBIN 14.1 g/dl (13.5-17.5); MEAN CORPUSCULAR HEMOGLOBIN 28.8 pg (27.0-33.0); MEAN CORPUSCULAR VOLUME 87.1 fl (80.0-96.0); PLATELET COUNT, AUTOMATED 342 10^3/uL (150-450); WHITE BLOOD COUNT 10.4 10^3/uL (4.0-10.0)
[2019-07-23] MEDS: SODIUM CHLORIDE 0.9% INJ 10 ML SYR IV SCH ×2 (06:34→18:07)
[2019-07-23 07:01] LABS: BLOOD UREA NITROGEN 17 MG/DL (7-18); CALCIUM LEVEL 8.9 MG/DL (8.5-10.1); CARBON DIOXIDE LEVEL 28 MEQ/L (21-32); CHLORIDE LEVEL 102 MEQ/L (98-107); CREATININE FOR GFR 0.86 MG/DL (0.70-1.30); GLOMERULAR FILTRATION RATE > 60.0 (>56); GLUCOSE, FASTING 186 MG/DL (70-100); MAGNESIUM LEVEL 1.8 MG/DL (1.8-2.4); PHOSPHORUS LEVEL 2.6 MG/DL (2.5-4.9); SODIUM LEVEL 136 MEQ/L (136-145)
[2019-07-23] MEDS: HumaLOG INSULIN (NovoLOG) PER UNIT SC SCH ×4 (08:44→21:00)
[2019-07-23] MEDS: ENOXAPARIN 40 MG/0.4 ML SYRINGE (J1650) SC SCH (08:45)
[2019-07-23] MEDS: MAG SULF 1GM/100ML (MAG RUN) 1 GM in IV 1 EA IV SCH ×3 (10:14→12:01)
[2019-07-23] MEDS: PERCOCET 5MG/325MG TAB PO PRN ×2 (10:16→21:22)
--- NOTE | 2019-07-23 11:36 | REP ---
Procedure: PICC line insertion with Bebeto The procedure was performed under the direct supervision of Dr. Warren. The risks and benefits of the procedure were explained to the patient and informed consent was obtained. The right basilic vein was localized using ultrasound guidance. The skin was prepped and draped in a sterile fashion. 1% lidocaine was used as a local anesthetic. Using ultrasound guidance the basilic vein was cannulated and a 0.018 guidewire was inserted and advanced to the SVC using fluoroscopic guidance. The needle was removed and a 5.5 [place] dilator and peel-away sheath was inserted over the guide wire. A 5.5 [place] dual lumen catheter was cut to length of 41 cm. The dilator was removed and the catheter was inserted over the guide wire with the tip ending in the SVC. The peel-away sheath was removed and the catheter was flushed with heparinized saline as per Hospital protocol. The catheter was affixed to the skin and a sterile dressing was applied. The patient tolerated the procedure well and there were no immediate complications. 0.2 minutes of fluoro time was utilized for this procedure. Electronically Signed by ERIN Wright 07/23/2019 07:47 A Electronically Signed by Jhonny Warren MD 07/23/2019 11:27 A
--- NOTE | 2019-07-23 13:42 | IPNPDOC ---
Date Seen The patient was seen on 07/23/19. Progress Note SUBJECTIVE: 58-year-old male with past medical history of diabetes mellitus, was admitted for right foot infection, underwent multiple surgical debridements by podiatry. Wound cultures grew MSSA, antibiotics downgraded to Ancef. He is currently resting in bed without any complaints, able to ambulate, reports pain with ambulation. He denies any short of breath, chest pain, vomiting, abdominal pain or diarrhea. 07/19/2019 Patient in bed, comfortable, wants to go home, advised that history is not completed and he needs to stay longer, agreeable for now. Patient awaiting podiatry recommendations, no other complaint at this time. Patient denies short of breath, chest pain, nausea, vomiting, abdominal pain or diarrhea. 07/20/2019 Patient in bed, without any complaints, tolerating diet, eager to go home, awaiting MRI results. He denies any chest breath, chest pain, nausea, vomiting, abdominal pain or diarrhea. 07/21/2019. Patient comfortable in bed, without any complaints at this time, he is scheduled for another debridement later today, followed by wound VAC placement. Patient eager to leave, discussed that given his home situation, legal situation, physical therapy recommendations he would likely require rehabilitation/halfway placement after discharge. 07/22/2019 Patient in bed, disgruntled, angry about not being able to contact his legal team, wishing to go home, concerned about going to prison. He denies any physical complaints at this time. 07/23/2019 Patient comfortable in bed, now has wound VAC in place, without any complaints, manager social services arranging placement. 10 point review of system was negative except for above PHYSICAL EXAMINATION: VITAL SIGNS: Please see below. GENERAL: No distress HEENT: Normocephalic, atraumatic, moist mucous membranes NECK: Supple CARDIOVASCULAR EXAMINATION: S1, S2, no murmurs RESPIRATORY EXAMINATION: Clear to auscultation, no wheezing ABDOMINAL EXAMINATION: Soft, nontender, nondistended, positive bowel sounds EXTREMITIES: Right foot wound VAC in place SKIN: No rash NEUROLOGICAL EXAMINATION: Alert and oriented 3, no focal deficits PSYCHIATRIC EXAMINATION: Calm and cooperative LABORATORY DATA, IMAGING STUDIES, MICROBIOLOGY: Please see below. DVT prophylaxis ordered?: Yes ASSESSMENT AND PLAN: 58-year-old male with past medical history of diabetes, admitted for right foot wound status post surgical debridement 2. PROBLEMS: 1. Right foot infection: Status post surgical debridement 3 by podiatry, cultures growing MSSA, continue Ancef, MRI positive for osteomyelitis, continue wound VAC, manager social services attempting to arrange rehabilitation/halfway placement, PICC line placed yesterday for long-term antibiotics, ID following; pain control with Percocet and morphine as needed. 2. Diabetes mellitus: Sliding scale insulin with finger sticks every before meals and at bedtime, continue Levemir. DVT prophylaxis: Lovenox. GI prophylaxis: Not needed VS, I&O, 24H, Fishbone Vital Signs/I&O Vital Signs Date Time Temp Pulse Resp B/P (MAP) Pulse Ox O2 Delivery O2 Flow Rate FiO2 07/23/19 10:46 20 07/23/19 06:00 97.4 80 129/79 (96) 96 07/22/19 21:10 Room Air 07/17/19 09:25 2 I&O- Last 24 Hours up to 6 AM 07/23/19 05:59 Intake Total 2100 ml Output Total 1525 ml Balance 575 ml Laboratory Data 24H LABS Laboratory Tests 2 07/22/19 17:10: Bedside Glucose (Misc Panel) 191H 07/22/19 20:15: Bedside Glucose (Misc Panel) 268H 07/23/19 05:34: Nucleated Red Blood Cells % (auto) 0.0, Anion Gap 6L, Glomerular Filtration Rate > 60.0, Calcium Level 8.9, Phosphorus Level 2.6, Magnesium Level 1.8 07/23/19 12:20: Bedside Glucose (Misc Panel) 227H CBC/BMP Laboratory Tests 07/23/19 05:34 Microbiology Microbiology 07/14/19 Wound Culture - Final, Complete Staphylococcus Aureus 07/14/19 Anaerobic Culture - Final, Complete JUAN SALINAS MD Jul 23, 2019 13:42
[2019-07-23 14:00] VITALS: BP 141/76
--- NOTE | 2019-07-23 17:51 | IPN ---
DATE: 07/23/2019 Patient seen and examined. Denies overnight complaints. States his foot is feeling better. He is afebrile. Labs are reviewed. White blood cell count is 10.4. Lower extremity examination: Erythema essentially resolved. Wound VAC is in place and is functioning appropriately at 125 mmHg. ASSESSMENT: Patient with diabetic ulceration, abscess, status post incision and drainage. PLAN: Continue wound VAC. Should be changed three times weekly. He is cleared for discharge from a podiatry standpoint once he cleared from therapy. If he cannot pass therapy, he may require halfway or rehab. He will ultimately require nursing care, be it at home or facility, for wound VAC. This must be in place before he is discharged. Antibiotics per infectious disease (ID). Suspect he will need 6 weeks coverage, intravenous (IV) or oral, due to MRI findings suggestive of osteomyelitis.
--- NOTE | 2019-07-23 18:19 | IPN ---
DATE: 07/23/2019 Mr. Yuan is anxious to go home. He does not want to go rehab or for physical therapy. He thinks he can do it on his own. According to physical therapy, he has a hard time getting out of bed and being offloading from the right foot. He complains of severe itching, mostly in the abdominal fold, buttock area and into the legs. He states he has had a history yeast infections for which he has seen manager architectural in [place], and he used to be on what he describes as steroid cream. He denies a history of scabies. LABORATORY: White count is 10.4, hemoglobin 14.1, hematocrit 42.7, platelets 342. Sodium 136, potassium 4, chloride 102, bicarbonate 28, BUN 17, creatinine 0.86, glucose 186, calcium 8.9, magnesium 1.8, CRP 4.53 down from 20.7. PHYSICAL EXAM: Temperature is 97.4, pulse 80, respirations 19, blood pressure 129/79, oxygen saturation (O2 sat) 96% on room air. Heart: Normal S1, S2. No murmurs. Lungs are clear. No wheezes, rales or rhonchi. Abdomen: Obese, soft, nontender. Skin: Multiple papular lesions on buttock area, thighs medially, lower abdominal fold. There are no lesions between his finger webs or between his toes. There is no purulent discharge. IMPRESSION: 1. Staphylococcus (staph) aureus acute osteomyelitis of the right calcaneus, status post wound VAC, o IV cefazolin 2 grams every 8 hours. Doing much better. 2. Dermatitis, possibly fungal versus eczematous. I would recommend consultation with dermatology. 3. Debilitation. The patient needs acute rehab but has refused adamantly. Plan consult patient and family services (PFS) for home wound VAC and IV and antibiotics could be switched to [facility] where he could receive the infusion once every 10 days for a total of two to three doses; that would not be an issue to be done as an outpatient. SOFY
[2019-07-23] MEDS: LEVEMIR (INSULIN DETEMIR) 1 UNITS/0.01ML SC SCH (21:23)
[2019-07-23 22:00] VITALS: BP 114/52
[2019-07-24] MEDS: ceFAZolin SOD 2 GM in IV 1 EA IV SCH ×3 (01:22→17:00)
[2019-07-24 05:58] LABS: HEMATOCRIT 45.6 % (42.0-52.0); HEMOGLOBIN 14.6 g/dl (13.5-17.5); MEAN CORPUSCULAR HEMOGLOBIN 28.5 pg (27.0-33.0); MEAN CORPUSCULAR VOLUME 88.9 fl (80.0-96.0); PLATELET COUNT, AUTOMATED 334 10^3/uL (150-450); RED BLOOD COUNT 5.13 10^6/uL (4.30-6.10); WHITE BLOOD COUNT 11.6 10^3/uL (4.0-10.0)
[2019-07-24 06:00] VITALS: BP 137/78
[2019-07-24 06:21] LABS: BLOOD UREA NITROGEN 17 MG/DL (7-18); CALCIUM LEVEL 8.9 MG/DL (8.5-10.1); CARBON DIOXIDE LEVEL 30 MEQ/L (21-32); CHLORIDE LEVEL 103 MEQ/L (98-107); CREATININE FOR GFR 0.89 MG/DL (0.70-1.30); GLOMERULAR FILTRATION RATE > 60.0 (>56); GLUCOSE, FASTING 165 MG/DL (70-100); MAGNESIUM LEVEL 1.7 MG/DL (1.8-2.4); PHOSPHORUS LEVEL 2.9 MG/DL (2.5-4.9); SODIUM LEVEL 138 MEQ/L (136-145)
[2019-07-24] MEDS: SODIUM CHLORIDE 0.9% INJ 10 ML SYR IV SCH ×2 (06:48→17:01)
[2019-07-24] MEDS: ENOXAPARIN 40 MG/0.4 ML SYRINGE (J1650) SC SCH (08:21)
[2019-07-24] MEDS: HumaLOG INSULIN (NovoLOG) PER UNIT SC SCH ×4 (08:21→21:45)
--- NOTE | 2019-07-24 09:37 | IPN ---
DATE: 07/24/2019 ATTENTION PHYSICIAN: Hospitalist group. HISTORY: Jose is seen in the [address] [place] [address]. He is diabetic with osteomyelitis of his right foot, status post incision and drainage times three by podiatry with a wound VAC on. Peripherally inserted central catheter (PICC) placement in the works for wound VAC management and long-term antibiotic therapy. Denies any fever, chills, or shortness of breath, or chest pain. PHYSICAL EXAMINATION: Vital signs stable. Afebrile. General appearance: Alert and oriented times three in no distress. Hard of hearing and wears hearing aides. Lungs clear. Heart regular rhythm. Abdomen soft, nontender. Right foot has a wound VAC on. LABS: White count 11.6, electrolytes unremarkable. Renal function is normal. IMPRESSION: Osteomyelitis secondary to methicillin sensitive Staphylococcus aureus. of his right heel. He is on IV Ancef 2 grams every 8 hours. Placement is planned through [facility] ([facility]
[2019-07-24 14:00] VITALS: BP 147/92
[2019-07-24] MEDS: PERCOCET 5MG/325MG TAB PO PRN (21:45)
[2019-07-24] MEDS: LEVEMIR (INSULIN DETEMIR) 1 UNITS/0.01ML SC SCH (21:46)
[2019-07-24 22:00] VITALS: BP 156/97
[2019-07-25] MEDS: ceFAZolin SOD 2 GM in IV 1 EA IV SCH ×3 (01:32→17:16)
[2019-07-25] MEDS ORDERED: diphenhydrAMINE 25 MG CAP PO ONE (03:00)
[2019-07-25 06:00] VITALS: BP 122/81
[2019-07-25] MEDS: SODIUM CHLORIDE 0.9% INJ 10 ML SYR IV SCH ×2 (06:32→17:17)
[2019-07-25] MEDS: ENOXAPARIN 40 MG/0.4 ML SYRINGE (J1650) SC SCH (08:36)
[2019-07-25] MEDS: HumaLOG INSULIN (NovoLOG) PER UNIT SC SCH ×4 (08:37→21:21)
[2019-07-25] MEDS: SODIUM CHLORIDE 0.9% INJ 10 ML SYR IV PRN (09:45)
--- NOTE | 2019-07-25 11:03 | IPN ---
DATE: 07/25/2019 Jose was seen on [facility]. There is really no change. He says that he feels much better and actually wants to go home. He is worried about paying his rent, though I think that the plan is for placement. He expects to go home (typographical error in yesterday's dictation. I said placement is planned through [facility] ([facility]) and this was transcribed as [facility] which I do not think that he is actually involved with). PHYSICAL EXAMINATION: Vital signs stable. Afebrile. LUNGS: Clear. HEART: Regular rhythm. ABDOMEN: Soft, nontender. EXTREMITIES: No peripheral edema. Extremities shows a wound Vac on the right foot. LABORATORIES: White count is 11.6. Electrolytes unremarkable. IMPRESSION: 1. Osteomyelitis of the heel. Continue IV antibiotics. Tomorrow [facility] family services ([facility]) will have to sort out whether he is being placed or not. He expects to be going home. I am not sure that he can handle the IV antibiotic for this.
[2019-07-25 14:00] VITALS: BP 138/69
[2019-07-25] MEDS: PERCOCET 5MG/325MG TAB PO PRN (17:42)
[2019-07-25 20:15] VITALS: BP 147/88
[2019-07-25] MEDS: LEVEMIR (INSULIN DETEMIR) 1 UNITS/0.01ML SC SCH (21:21)
[2019-07-26] MEDS: ceFAZolin SOD 2 GM in IV 1 EA IV SCH ×3 (01:39→16:34)
[2019-07-26] MEDS: PERCOCET 5MG/325MG TAB PO PRN ×3 (01:47→20:59)
[2019-07-26] MEDS: SODIUM CHLORIDE 0.9% INJ 10 ML SYR IV SCH ×2 (05:50→17:00)
[2019-07-26 06:10] VITALS: BP 122/82
[2019-07-26] MEDS: HumaLOG INSULIN (NovoLOG) PER UNIT SC SCH ×4 (07:30→20:58)
[2019-07-26] MEDS: ENOXAPARIN 40 MG/0.4 ML SYRINGE (J1650) SC SCH (08:36)
--- NOTE | 2019-07-26 09:57 | IPN ---
DATE: 07/26/2019 Jose is seen on [facility]. Really no change in his status. Biggest issue at this point is placement. He expects he is going home and nursing staff does not think that he can handle this. [facility] ([facility]) is looking into placement. No new issues today medically. PHYSICAL EXAMINATION: Afebrile. Vital signs are stable. His lungs are clear. Heart regular rhythm. Abdomen soft, nontender. Wound Vac right foot. The foot feels better. IMPRESSION: 1. Osteomyelitis of right foot. At this point, we are awaiting for [facility] to finalize his disposition plans. Infectious disease is involved as well. She discussed changing him to Dalvance every 10 days for two or three doses. I am not sure whether that plan is going into effect upon discharge or not. I have a call out for Dr. Centeno this morning. Morning labs have been ordered.
[2019-07-26 14:00] VITALS: BP 125/85
--- NOTE | 2019-07-26 17:46 | IPN ---
DATE: 07/26/2019 Mr. Yuan is doing well. He only complains of itching of his buttocks. He states he has she has had yeast infections before he would like an antifungal cream. He has no nausea, vomiting or diarrhea. No fever or chills. He still not a safe discharge because he has not offloading from his right foot. He is not a candidate for acute rehab either. He had his wound vac changed today. PHYSICAL EXAMINATION: Temperature is 97.6, pulse of 96, respirations 17, blood pressure 125/85, O2 sat 97% on room air. Heart: Normal S1-S2. No murmurs, rubs or gallops. Lungs are clear. No wheezes or rhonchi. Abdomen is soft. These nontender. Extremities: No edema right foot has an open wound measuring about 3 x 2 cm with no purulent discharge. He has diffuse hyperpigmented macular papular rash on his buttocks. Wound vac was removed. He has also an open incision from the heel all the way to the mid foot with sutures in place. There is minimal surrounding erythema and tenderness. IMPRESSION: 1. Acute osteomyelitis of the calcaneus with an deep tissue abscess culture positive for MSSA on IV cefazolin 2 grams every 8 hours. The patient doing well. 2. Tenia - fungal infection of the buttock area. Start Lotrimin twice a day. If no improvement, consider consultation with dermatology. 3. Insulin-dependent diabetes, glucose are much better controlled, ranging between 76 and 294. LABORATORY DATA: White count 11.6, hemoglobin 14.6, hematocrit 45.6, platelet 334, CRP 0.69 down from 20.7. PLAN: Continue with IV cefazolin until plan of discharge. He has been on appropriate antibiotics since 07/12 currently 2 weeks. He will need to continue 6 weeks of antibiotics. It does not necessarily need to be IV but he probably would be of good candidate for IV Dalvance 1.5 grams times two doses over 10 days. I would not recommend him being discharged with IV cefazolin. I am not sure about his care and his safety at home. Please consult PFS to see if he would be a candidate for Dalvance and whether it would be covered by his insurance.
[2019-07-26] MEDS: LEVEMIR (INSULIN DETEMIR) 1 UNITS/0.01ML SC SCH (20:57)
[2019-07-26] MEDS: CLOTRIMAZOLE 1% TOPICAL CREAM 30GM TOP SCH (20:59)
[2019-07-26 22:00] VITALS: BP 127/80
[2019-07-27] MEDS: ceFAZolin SOD 2 GM in IV 1 EA IV SCH ×3 (00:43→17:10)
[2019-07-27] MEDS: SODIUM CHLORIDE 0.9% INJ 10 ML SYR IV SCH ×2 (05:59→17:40)
[2019-07-27 06:00] VITALS: BP 129/89
[2019-07-27] MEDS: PERCOCET 5MG/325MG TAB PO PRN ×3 (06:05→21:46)
[2019-07-27 07:01] LABS: HEMATOCRIT 45.8 % (42.0-52.0); HEMOGLOBIN 14.4 g/dl (13.5-17.5); MEAN CORPUSCULAR HEMOGLOBIN 28.5 pg (27.0-33.0); MEAN CORPUSCULAR HGB CONC 31.4 g/dl (32.0-36.5); MEAN CORPUSCULAR VOLUME 90.7 fl (80.0-96.0); PLATELET COUNT, AUTOMATED 286 10^3/uL (150-450); RED BLOOD COUNT 5.05 10^6/uL (4.30-6.10); WHITE BLOOD COUNT 10.7 10^3/uL (4.0-10.0)
[2019-07-27 07:24] LABS: BLOOD UREA NITROGEN 20 MG/DL (7-18); CALCIUM LEVEL 8.9 MG/DL (8.5-10.1); CARBON DIOXIDE LEVEL 33 MEQ/L (21-32); CHLORIDE LEVEL 99 MEQ/L (98-107); CREATININE FOR GFR 0.95 MG/DL (0.70-1.30); GLOMERULAR FILTRATION RATE > 60.0 (>56); GLUCOSE, FASTING 187 MG/DL (70-100); POTASSIUM SERUM 3.9 MEQ/L (3.5-5.1); SODIUM LEVEL 138 MEQ/L (136-145)
[2019-07-27] MEDS: ENOXAPARIN 40 MG/0.4 ML SYRINGE (J1650) SC SCH (08:26)
[2019-07-27] MEDS: CLOTRIMAZOLE 1% TOPICAL CREAM 30GM TOP SCH ×2 (08:27→21:46)
[2019-07-27] MEDS: HumaLOG INSULIN (NovoLOG) PER UNIT SC SCH ×4 (08:27→21:00)
[2019-07-27 14:00] VITALS: BP 132/77
--- NOTE | 2019-07-27 14:15 | IPNPDOC ---
Date Seen The patient was seen on 07/27/19. Progress Note 07/27/2019 Patient resting comfortably in chair, without any complaints, ambulating with assistance, angry that he still admitted to the hospital, wishes to go home as soon as possible. Patient denies any short of breath, chest pain, vomiting, abdominal pain, diarrhea. 10 point review of system was negative except for above PHYSICAL EXAMINATION: VITAL SIGNS: Please see below. GENERAL: No distress HEENT: Normocephalic, atraumatic, moist mucous membranes NECK: Supple CARDIOVASCULAR EXAMINATION: S1, S2, no murmurs RESPIRATORY EXAMINATION: Clear to auscultation, no wheezing ABDOMINAL EXAMINATION: Soft, nontender, nondistended, positive bowel sounds EXTREMITIES: Right foot wound VAC in place SKIN: No rash NEUROLOGICAL EXAMINATION: Alert and oriented 3, no focal deficits PSYCHIATRIC EXAMINATION: Calm and cooperative LABORATORY DATA, IMAGING STUDIES, MICROBIOLOGY: Please see below. DVT prophylaxis ordered?: Yes ASSESSMENT AND PLAN: 58-year-old male with past medical history of diabetes, admitted for right foot wound status post surgical debridement 2. PROBLEMS: 1. 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 2. Diabetes mellitus: Sliding scale insulin with finger sticks every before meals and at bedtime, continue Levemir. DVT prophylaxis: Lovenox. GI prophylaxis: Not needed VS, I&O, 24H, Fishbone Vital Signs/I&O Vital Signs Date Time Temp Pulse Resp B/P (MAP) Pulse Ox O2 Delivery O2 Flow Rate FiO2 07/27/19 13:57 18 07/27/19 06:05 95 Room Air 07/27/19 06:00 98.5 93 129/89 (102) I&O- Last 24 Hours up to 6 AM 07/27/19 06:00 Intake Total 1510 ml Output Total 1400 ml Balance 110 ml Laboratory Data 24H LABS Laboratory Tests 2 07/26/19 15:45: C-Reactive Protein, Quantitative 0.69H 07/26/19 16:43: Bedside Glucose (Misc Panel) 294H 07/26/19 20:33: Bedside Glucose (Misc Panel) 297H 07/27/19 05:25: Nucleated Red Blood Cells % (auto) 0.0, Anion Gap 6L, Glomerular Filtration Rate > 60.0, Calcium Level 8.9 CBC/BMP Laboratory Tests 07/27/19 05:25 JUAN SALINAS MD Jul 27, 2019 14:15
[2019-07-27] MEDS: LEVEMIR (INSULIN DETEMIR) 1 UNITS/0.01ML SC SCH (21:44)
[2019-07-27 22:00] VITALS: BP 136/87
[2019-07-28] MEDS: ceFAZolin SOD 2 GM in IV 1 EA IV SCH ×3 (00:25→17:22)
[2019-07-28] MEDS: SODIUM CHLORIDE 0.9% INJ 10 ML SYR IV PRN (02:24)
[2019-07-28 06:00] VITALS: BP 132/84
[2019-07-28 06:02] LABS: HEMATOCRIT 43.3 % (42.0-52.0); HEMOGLOBIN 14.1 g/dl (13.5-17.5); MEAN CORPUSCULAR HEMOGLOBIN 28.6 pg (27.0-33.0); MEAN CORPUSCULAR HGB CONC 32.6 g/dl (32.0-36.5); MEAN CORPUSCULAR VOLUME 87.8 fl (80.0-96.0); PLATELET COUNT, AUTOMATED 250 10^3/uL (150-450); RED BLOOD COUNT 4.93 10^6/uL (4.30-6.10)
[2019-07-28 06:21] LABS: BLOOD UREA NITROGEN 22 MG/DL (7-18); CALCIUM LEVEL 8.7 MG/DL (8.5-10.1); CARBON DIOXIDE LEVEL 27 MEQ/L (21-32); CHLORIDE LEVEL 105 MEQ/L (98-107); CREATININE FOR GFR 0.82 MG/DL (0.70-1.30); GLOMERULAR FILTRATION RATE > 60.0 (>56); GLUCOSE, FASTING 144 MG/DL (70-100); MAGNESIUM LEVEL 1.3 MG/DL (1.8-2.4); PHOSPHORUS LEVEL 3.2 MG/DL (2.5-4.9); POTASSIUM SERUM 3.8 MEQ/L (3.5-5.1); SODIUM LEVEL 138 MEQ/L (136-145)
[2019-07-28] MEDS: SODIUM CHLORIDE 0.9% INJ 10 ML SYR IV SCH ×2 (06:59→17:22)
[2019-07-28] MEDS: ENOXAPARIN 40 MG/0.4 ML SYRINGE (J1650) SC SCH (08:18)
[2019-07-28] MEDS: HumaLOG INSULIN (NovoLOG) PER UNIT SC SCH ×4 (08:18→21:58)
[2019-07-28] MEDS ORDERED: POTASSIUM CHLORIDE 10 MEQ SR TABLET PO ONE (09:00)
[2019-07-28] MEDS: CLOTRIMAZOLE 1% TOPICAL CREAM 30GM TOP SCH ×2 (09:23→21:59)
[2019-07-28] MEDS: MAG SULF 1GM/100ML (MAG RUN) 1 GM in IV 1 EA IV SCH ×5 (10:07→15:34)
[2019-07-28 10:15] VITALS: BP 138/81
[2019-07-28] MEDS: PERCOCET 5MG/325MG TAB PO PRN ×2 (13:36→22:01)
[2019-07-28 14:00] VITALS: BP 133/81
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
[2019-07-28] MEDS ORDERED: LEVEMIR (INSULIN DETEMIR) 1 UNITS/0.01ML SC SCH (21:00)
[2019-07-28 22:00] VITALS: BP 155/72
[2019-07-29] MEDS: SODIUM CHLORIDE 0.9% INJ 10 ML SYR IV PRN ×2 (00:47→11:33)
[2019-07-29] MEDS: ceFAZolin SOD 2 GM in IV 1 EA IV SCH ×2 (00:47→09:24)
[2019-07-29 06:00] VITALS: BP 136/83
[2019-07-29] MEDS: SODIUM CHLORIDE 0.9% INJ 10 ML SYR IV SCH ×2 (06:11→18:02)
[2019-07-29] MEDS: HumaLOG INSULIN (NovoLOG) PER UNIT SC SCH ×4 (07:30→20:27)
[2019-07-29] MEDS: ENOXAPARIN 40 MG/0.4 ML SYRINGE (J1650) SC SCH (09:23)
[2019-07-29] MEDS: CLOTRIMAZOLE 1% TOPICAL CREAM 30GM TOP SCH ×2 (09:25→20:29)
[2019-07-29] MEDS: PERCOCET 5MG/325MG TAB PO PRN (09:27)
[2019-07-29 14:00] VITALS: BP 125/76
--- NOTE | 2019-07-29 17:15 | IPNPDOC ---
Date Seen The patient was seen on 07/29/19. Progress Note Subjective: 58-year-old male, past medical history of diabetes mellitus, admitted for right foot osteomyelitis status post debridement 3 by podiatry, c urrently with wound VAC, on IV antibiotics through PICC line, awaiting placement. 07/29/2019 Comfortable in bed, without any complaints at this time, awaiting placement. He denies any shortness of breath, chest pain, nausea, vomiting, abdominal pain or diarrhea. 10 point review of system was negative except for above PHYSICAL EXAMINATION: VITAL SIGNS: Please see below. GENERAL: No distress HEENT: Normocephalic, atraumatic, moist mucous membranes NECK: Supple CARDIOVASCULAR EXAMINATION: S1, S2, no murmurs RESPIRATORY EXAMINATION: Clear to auscultation, no wheezing ABDOMINAL EXAMINATION: Soft, nontender, nondistended, positive bowel sounds EXTREMITIES: Right foot wound VAC in place SKIN: No rash NEUROLOGICAL EXAMINATION: Alert and oriented 3, no focal deficits PSYCHIATRIC EXAMINATION: Calm and cooperative LABORATORY DATA, IMAGING STUDIES, MICROBIOLOGY: Please see below. DVT prophylaxis ordered?: Yes ASSESSMENT AND PLAN: 58-year-old male with past medical history of diabetes, admitted for right foot wound status post surgical debridement 2. PROBLEMS: 1. Right foot infection: MRI positive for osteomyelitis, status post surgical debridement 3 by podiatry, cultures grew MSSA, continue Ancef, continue wound VAC, social media director attempting to arrange alternative residence for patient to return to. ID following. 2. Diabetes mellitus: Sliding scale insulin with finger sticks every before meals and at bedtime, changed Levemir to 40 units daily. DVT prophylaxis: Lovenox. GI prophylaxis: Not needed VS, I&O, 24H, Jhbone Vital Signs/I&O Vital Signs Date Time Temp Pulse Resp B/P (MAP) Pulse Ox O2 Delivery O2 Flow Rate FiO2 07/29/19 16:21 97.6 07/29/19 14:00 95 17 125/76 (92) 97 Room Air l I&O- Last 24 Hours up to 6 AM 07/29/19 05:59 Intake Total 2316 ml Output Total 3850 ml Balance -1534 ml Laboratory Data 24H LABS Laboratory Tests 2 07/28/19 21:00: Bedside Glucose (Misc Panel) 270H 07/29/19 06:32: Bedside Glucose (Misc Panel) 63L 07/29/19 07:52: Bedside Glucose (Misc Panel) 86 07/29/19 12:03: Bedside Glucose (Misc Panel) 231H 07/29/19 16:41: Bedside Glucose (Misc Panel) 99 JUAN SALINAS MD Jul 29, 2019 17:15
[2019-07-29] MEDS: CEPHALEXIN 500 MG CAP PO SCH (18:01)
[2019-07-29] MEDS: LEVEMIR (INSULIN DETEMIR) 1 UNITS/0.01ML SC SCH (20:28)
[2019-07-29 22:00] VITALS: BP 122/77
[2019-07-30] MEDS: CEPHALEXIN 500 MG CAP PO SCH ×4 (01:01→17:05)
[2019-07-30 06:00] VITALS: BP 120/81
[2019-07-30] MEDS: SODIUM CHLORIDE 0.9% INJ 10 ML SYR IV SCH ×2 (06:15→16:30)
[2019-07-30 06:16] LABS: HEMATOCRIT 44.2 % (42.0-52.0); HEMOGLOBIN 14.2 g/dl (13.5-17.5); MEAN CORPUSCULAR HEMOGLOBIN 28.3 pg (27.0-33.0); MEAN CORPUSCULAR HGB CONC 32.1 g/dl (32.0-36.5); MEAN CORPUSCULAR VOLUME 88.2 fl (80.0-96.0); PLATELET COUNT, AUTOMATED 233 10^3/uL (150-450); RED BLOOD COUNT 5.01 10^6/uL (4.30-6.10); WHITE BLOOD COUNT 9.2 10^3/uL (4.0-10.0)
[2019-07-30] MEDS: SODIUM CHLORIDE 0.9% INJ 10 ML SYR IV PRN (06:16)
[2019-07-30 06:42] LABS: BLOOD UREA NITROGEN 17 MG/DL (7-18); CALCIUM LEVEL 8.9 MG/DL (8.5-10.1); CARBON DIOXIDE LEVEL 31 MEQ/L (21-32); CHLORIDE LEVEL 105 MEQ/L (98-107); CREATININE FOR GFR 0.82 MG/DL (0.70-1.30); GLOMERULAR FILTRATION RATE > 60.0 (>56); GLUCOSE, FASTING 139 MG/DL (70-100); MAGNESIUM LEVEL 1.4 MG/DL (1.8-2.4); PHOSPHORUS LEVEL 3.4 MG/DL (2.5-4.9); POTASSIUM SERUM 3.8 MEQ/L (3.5-5.1); SODIUM LEVEL 139 MEQ/L (136-145)
[2019-07-30] MEDS ORDERED: FLUCONAZOLE 50MG TABLET PO ONE (09:00)
[2019-07-30] MEDS: HumaLOG INSULIN (NovoLOG) PER UNIT SC SCH ×4 (09:03→20:58)
[2019-07-30] MEDS: ENOXAPARIN 40 MG/0.4 ML SYRINGE (J1650) SC SCH (09:03)
[2019-07-30] MEDS: CLOTRIMAZOLE 1% TOPICAL CREAM 30GM TOP SCH ×2 (09:04→20:58)
[2019-07-30] MEDS: MAG SULF 1GM/100ML (MAG RUN) 1 GM in IV 1 EA IV SCH ×6 (09:04→15:05)
--- NOTE | 2019-07-30 12:19 | IPN ---
DATE OF SERVICE: 07/30/2019 Patient is seen and examined. Denies complaints. States his foot is feeling better. Labs are reviewed. White cell count is 9.2. Lower extremity examination: Wound VAC was functioning properly. When removed, the wound base is significantly improved. There is granulation tissue surrounding the fascia. No further purulence or necrosis or erythema. ASSESSMENT: 58-year-old diabetic male with right foot ulcerations status post multiple debridements. PLAN: Continue wound VAC. The patient is clear for discharge once he has nursing available or if he is able to be placed in a nursing facility, this would be preferable given his inability to perform adequately with physical therapy.
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
[2019-07-30 14:00] VITALS: BP 122/65
[2019-07-30] MEDS: PERCOCET 5MG/325MG TAB PO PRN (17:05)
--- NOTE | 2019-07-30 17:26 | IPNPDOC ---
Date Seen The patient was seen on 07/30/19. Progress Note Subjective: 58-year-old male, past medical history of diabetes mellitus, admitted for right foot osteomyelitis status post debridement 3 by podiatry, currently with wound VAC, on IV antibiotics through PICC line, awaiting placement. 07/29/2019 Comfortable in bed, without any complaints at this time, awaiting placement. He denies any shortness of breath, chest pain, nausea, vomiting, abdominal pain or diarrhea. 07/30/2019 Patient is comfortable in bed, no new complaints at this time, awaiting alternative placement options. 10 point review of system was negative except for above PHYSICAL EXAMINATION: VITAL SIGNS: Please see below. GENERAL: No distress HEENT: Normocephalic, atraumatic, moist mucous membranes NECK: Supple CARDIOVASCULAR EXAMINATION: S1, S2, no murmurs RESPIRATORY EXAMINATION: Clear to auscultation, no wheezing ABDOMINAL EXAMINATION: Soft, nontender, nondistended, positive bowel sounds EXTREMITIES: Right foot wound VAC in place SKIN: No rash NEUROLOGICAL EXAMINATION: Alert and oriented 3, no focal deficits PSYCHIATRIC EXAMINATION: Calm and cooperative LABORATORY DATA, IMAGING STUDIES, MICROBIOLOGY: Please see below. DVT prophylaxis ordered?: Yes ASSESSMENT AND PLAN: 58-year-old male with past medical history of diabetes, admitted for right foot wound status post surgical debridement 2. PROBLEMS: 1. Right foot infection: MRI positive for osteomyelitis, status post surgical debridement 3 by podiatry, cultures grew MSSA, continue Keflex, continue wound VAC, health and social care teacher attempting to arrange alternative residence for patient to return to. ID following. 2. Diabetes mellitus: Sliding scale insulin with finger sticks every before meals and at bedtime, changed Levemir to 40 units daily. DVT prophylaxis: Lovenox. GI prophylaxis: Not needed VS, I&O, 24H, Fishbone Vital Signs/I&O Vital Signs Date Time Temp Pulse Resp B/P (MAP) Pulse Ox O2 Delivery O2 Flow Rate FiO2 07/30/19 17:05 17 07/30/19 14:00 97.8 80 122/65 (84) 96 Room Air I&O- Last 24 Hours up to 6 AM 07/30/19 06:00 Intake Total 1700 ml Output Total 2200 ml Balance -500 ml Laboratory Data 24H LABS Laboratory Tests 2 07/29/19 20:06: Bedside Glucose (Misc Panel) 271H 07/30/19 05:28: Nucleated Red Blood Cells % (auto) 0.0, Anion Gap 3L, Glomerular Filtration Rate > 60.0, Calcium Level 8.9, Phosphorus Level 3.4, Magnesium Level 1.4L 07/30/19 12:04: Bedside Glucose (Misc Panel) 191H CBC/BMP Laboratory Tests 07/30/19 05:28 JUAN SALINAS MD Jul 30, 2019 17:26
[2019-07-30] MEDS: LEVEMIR (INSULIN DETEMIR) 1 UNITS/0.01ML SC SCH (20:58)
[2019-07-30 22:00] VITALS: BP 143/90
[2019-07-31] MEDS: CEPHALEXIN 500 MG CAP PO SCH ×4 (00:54→17:16)
[2019-07-31] MEDS: PERCOCET 5MG/325MG TAB PO PRN ×3 (03:29→16:39)
[2019-07-31] MEDS: SODIUM CHLORIDE 0.9% INJ 10 ML SYR IV SCH ×2 (05:47→17:16)
[2019-07-31] MEDS: SODIUM CHLORIDE 0.9% INJ 10 ML SYR IV PRN (05:49)
[2019-07-31 06:00] VITALS: BP 121/77
[2019-07-31 06:46] LABS: HEMATOCRIT 41.6 % (42.0-52.0); HEMOGLOBIN 13.7 g/dl (13.5-17.5); MEAN CORPUSCULAR HEMOGLOBIN 28.9 pg (27.0-33.0); MEAN CORPUSCULAR HGB CONC 32.9 g/dl (32.0-36.5); MEAN CORPUSCULAR VOLUME 87.8 fl (80.0-96.0); PLATELET COUNT, AUTOMATED 224 10^3/uL (150-450); RED BLOOD COUNT 4.74 10^6/uL (4.30-6.10); WHITE BLOOD COUNT 9.2 10^3/uL (4.0-10.0)
[2019-07-31 07:17] LABS: BLOOD UREA NITROGEN 20 MG/DL (7-18); CALCIUM LEVEL 9.4 MG/DL (8.5-10.1); CARBON DIOXIDE LEVEL 30 MEQ/L (21-32); CHLORIDE LEVEL 101 MEQ/L (98-107); CREATININE FOR GFR 0.91 MG/DL (0.70-1.30); GLOMERULAR FILTRATION RATE > 60.0 (>56); GLUCOSE, FASTING 202 MG/DL (70-100); MAGNESIUM LEVEL 1.6 MG/DL (1.8-2.4); PHOSPHORUS LEVEL 3.3 MG/DL (2.5-4.9); POTASSIUM SERUM 3.8 MEQ/L (3.5-5.1); SODIUM LEVEL 137 MEQ/L (136-145)
[2019-07-31] MEDS: CLOTRIMAZOLE 1% TOPICAL CREAM 30GM TOP SCH ×2 (08:32→20:30)
[2019-07-31] MEDS: ENOXAPARIN 40 MG/0.4 ML SYRINGE (J1650) SC SCH (08:32)
[2019-07-31] MEDS: HumaLOG INSULIN (NovoLOG) PER UNIT SC SCH ×4 (08:32→20:29)
[2019-07-31] MEDS: MAG SULF 1GM/100ML (MAG RUN) 1 GM in IV 1 EA IV SCH ×5 (09:34→14:24)
[2019-07-31 14:00] VITALS: BP 132/81
--- NOTE | 2019-07-31 14:44 | IPNPDOC ---
Date Seen The patient was seen on 07/31/19. Progress Note Subjective: 58-year-old male, past medical history of diabetes mellitus, admitted for right foot osteomyelitis status post debridement 3 by podiatry, currently with wound VAC, on IV antibiotics through PICC line, awaiting placement. 07/29/2019 Comfortable in bed, without any complaints at this time, awaiting placement. He denies any shortness of breath, chest pain, nausea, vomiting, abdominal pain or diarrhea. 07/30/2019 Patient is comfortable in bed, no new complaints at this time, awaiting alternative placement options. 07/31/2019 Patient length roughly in bed, wound VAC in place, no complaint at this time, awaiting placement. He denies any shortness of breath, chest pain, nausea, vomiting, abdominal pain or diarrhea. 10 point review of system was negative except for above PHYSICAL EXAMINATION: VITAL SIGNS: Please see below. GENERAL: No distress HEENT: Normocephalic, atraumatic, moist mucous membranes NECK: Supple CARDIOVASCULAR EXAMINATION: S1, S2, no murmurs RESPIRATORY EXAMINATION: Clear to auscultation, no wheezing ABDOMINAL EXAMINATION: Soft, nontender, nondistended, positive bowel sounds EXTREMITIES: Right foot wound VAC in place SKIN: No rash NEUROLOGICAL EXAMINATION: Alert and oriented 3, no focal deficits PSYCHIATRIC EXAMINATION: Calm and cooperative LABORATORY DATA, IMAGING STUDIES, MICROBIOLOGY: Please see below. DVT prophylaxis ordered?: Yes ASSESSMENT AND PLAN: 58-year-old male with past medical history of diabetes, admitted for right foot wound status post surgical debridement 2. PROBLEMS: 1. Right foot infection: MRI positive for osteomyelitis, status post surgical debridement 3 by podiatry, cultures grew MSSA, continue Keflex, continue wound VAC, administrator social welfare attempting to arrange alternative residence for patient to return to. ID following. 2. Diabetes mellitus: Sliding scale insulin with finger sticks every before meals and at bedtime, continue Levemir 40 units daily. 3. Hypomagnesemia: Continues to require aggressive IV supplementation, urine studies ordered to assess for magnesium wasting. DVT prophylaxis: Lovenox. GI prophylaxis: Not needed VS, I&O, 24H, Fishbone Vital Signs/I&O Vital Signs Date Time Temp Pulse Resp B/P (MAP) Pulse Ox O2 Delivery O2 Flow Rate FiO2 07/31/19 14:00 97.2 91 17 132/81 (98) 95 Room Air I&O- Last 24 Hours up to 6 AM 07/31/19 06:00 Intake Total 2460 ml Output Total 3375 ml Balance -915 ml Laboratory Data 24H LABS Laboratory Tests 2 07/30/19 17:33: Bedside Glucose (Misc Panel) 272H 07/30/19 20:51: Bedside Glucose (Misc Panel) 279H 07/31/19 06:14: Nucleated Red Blood Cells % (auto) 0.0, Anion Gap 6L, Glomerular Filtration Rate > 60.0, Calcium Level 9.4, Phosphorus Level 3.3, Magnesium Level 1.6L 07/31/19 11:39: Bedside Glucose (Misc Panel) 293H CBC/BMP Laboratory Tests 07/31/19 06:14 JUAN SALINAS MD Jul 31, 2019 14:44
[2019-07-31] MEDS: LEVEMIR (INSULIN DETEMIR) 1 UNITS/0.01ML SC SCH (20:28)
[2019-07-31 22:00] VITALS: BP 128/81
[2019-08-01] MEDS: CEPHALEXIN 500 MG CAP PO SCH ×4 (00:11→18:10)
[2019-08-01] MEDS: SODIUM CHLORIDE 0.9% INJ 10 ML SYR IV SCH ×2 (05:33→15:28)
[2019-08-01 06:00] VITALS: BP 131/85
[2019-08-01] MEDS: PERCOCET 5MG/325MG TAB PO PRN ×2 (06:09→21:40)
[2019-08-01 06:48] LABS: HEMATOCRIT 42.1 % (42.0-52.0); HEMOGLOBIN 13.9 g/dl (13.5-17.5); MEAN CORPUSCULAR HEMOGLOBIN 28.9 pg (27.0-33.0); MEAN CORPUSCULAR VOLUME 87.5 fl (80.0-96.0); PLATELET COUNT, AUTOMATED 205 10^3/uL (150-450); RED BLOOD COUNT 4.81 10^6/uL (4.30-6.10); WHITE BLOOD COUNT 8.7 10^3/uL (4.0-10.0)
[2019-08-01 07:13] LABS: BLOOD UREA NITROGEN 17 MG/DL (7-18); CARBON DIOXIDE LEVEL 33 MEQ/L (21-32); CHLORIDE LEVEL 101 MEQ/L (98-107); CREATININE FOR GFR 0.87 MG/DL (0.70-1.30); GLOMERULAR FILTRATION RATE > 60.0 (>56); GLUCOSE, FASTING 181 MG/DL (70-100); MAGNESIUM LEVEL 1.5 MG/DL (1.8-2.4); POTASSIUM SERUM 4.2 MEQ/L (3.5-5.1); SODIUM LEVEL 139 MEQ/L (136-145)
[2019-08-01] MEDS: ENOXAPARIN 40 MG/0.4 ML SYRINGE (J1650) SC SCH (09:10)
[2019-08-01] MEDS: HumaLOG INSULIN (NovoLOG) PER UNIT SC SCH ×4 (09:10→21:00)
[2019-08-01] MEDS: CLOTRIMAZOLE 1% TOPICAL CREAM 30GM TOP SCH ×2 (09:10→21:41)
[2019-08-01] MEDS: MAG SULF 1GM/100ML (MAG RUN) 1 GM in IV 1 EA IV SCH ×5 (10:01→14:12)
[2019-08-01 12:14] LABS: CREATININE,RANDOM URINE 72.1 MG/DL
[2019-08-01 14:00] VITALS: BP 133/83
--- NOTE | 2019-08-01 14:30 | IPNPDOC ---
Date Seen The patient was seen on 08/01/19. Progress Note Subjective: 58-year-old male, past medical history of diabetes mellitus, admitted for right foot osteomyelitis status post debridement 3 by podiatry, currently with wound VAC, on IV antibiotics through PICC line, awaiting placement. 07/29/2019 Comfortable in bed, without any complaints at this time, awaiting placement. He denies any shortness of breath, chest pain, nausea, vomiting, abdominal pain or diarrhea. 07/30/2019 Patient is comfortable in bed, no new complaints at this time, awaiting alternative placement options. 07/31/2019 Patient length roughly in bed, wound VAC in place, no complaint at this time, awaiting placement. He denies any shortness of breath, chest pain, nausea, vomiting, abdominal pain or diarrhea. 08/01/2019 Patient without complaints, resting comfortably in bed, continues awaiting placement. 10 point review of system was negative except for above PHYSICAL EXAMINATION: VITAL SIGNS: Please see below. GENERAL: No distress HEENT: Normocephalic, atraumatic, moist mucous membranes NECK: Supple CARDIOVASCULAR EXAMINATION: S1, S2, no murmurs RESPIRATORY EXAMINATION: Clear to auscultation, no wheezing ABDOMINAL EXAMINATION: Soft, nontender, nondistended, positive bowel sounds EXTREMITIES: Right foot wound VAC in place SKIN: No rash NEUROLOGICAL EXAMINATION: Alert and oriented 3, no focal deficits PSYCHIATRIC EXAMINATION: Calm and cooperative LABORATORY DATA, IMAGING STUDIES, MICROBIOLOGY: Please see below. DVT prophylaxis ordered?: Yes ASSESSMENT AND PLAN: 58-year-old male with past medical history of diabetes, admitted for right foot wound status post surgical debridement 2. PROBLEMS: 1. Right foot infection: MRI positive for osteomyelitis, status post surgical debridement 3 by podiatry, cultures grew MSSA, continue Keflex, continue wound VAC, social service coordinator attempting to arrange alternative residence for patient to return to. ID following. 2. Diabetes mellitus: Sliding scale insulin with finger sticks every before meals and at bedtime, continue Levemir 40 units daily. 3. Hypomagnesemia: Fractional excretion of magnesium greater than 10%, consistent with renal wasting of magnesium, continue IV and by mouth supplementation. DVT prophylaxis: Lovenox. GI prophylaxis: Not needed VS, I&O, 24H, Fishbone Vital Signs/I&O Vital Signs Date Time Temp Pulse Resp B/P (MAP) Pulse Ox O2 Delivery O2 Flow Rate FiO2 08/01/19 06:59 16 Room Air 08/01/19 06:00 96.5 77 131/85 (100) 96 I&O- Last 24 Hours up to 6 AM 08/01/19 06:00 Intake Total 2240 ml Output Total 3450 ml Balance -1210 ml Laboratory Data 24H LABS Laboratory Tests 2 07/31/19 16:33: Bedside Glucose (Misc Panel) 176H 07/31/19 20:05: Bedside Glucose (Misc Panel) 313H 08/01/19 06:30: Nucleated Red Blood Cells % (auto) 0.0, Anion Gap 5L, Glomerular Filtration Rate > 60.0, Calcium Level 9.0, Magnesium Level 1.5L 08/01/19 11:06: Urine Random Creatinine 72.1, Urine Random Magnesium 13.0 08/01/19 11:25: Bedside Glucose (Misc Panel) 239H CBC/BMP Laboratory Tests 08/01/19 06:30 JUAN SALINAS MD Aug 01, 2019 14:30
[2019-08-01] MEDS: LEVEMIR (INSULIN DETEMIR) 1 UNITS/0.01ML SC SCH (21:40)
[2019-08-01 22:00] VITALS: BP 139/70
[2019-08-02] MEDS: CEPHALEXIN 500 MG CAP PO SCH ×5 (00:10→23:21)
[2019-08-02] MEDS: SODIUM CHLORIDE 0.9% INJ 10 ML SYR IV SCH ×2 (05:54→17:42)
[2019-08-02 06:00] VITALS: BP 130/85
[2019-08-02] MEDS: HumaLOG INSULIN (NovoLOG) PER UNIT SC SCH ×4 (07:43→21:00)
[2019-08-02] MEDS: ENOXAPARIN 40 MG/0.4 ML SYRINGE (J1650) SC SCH (07:43)
[2019-08-02] MEDS: CLOTRIMAZOLE 1% TOPICAL CREAM 30GM TOP SCH ×2 (07:44→21:11)
[2019-08-02] MEDS ORDERED: MAGNESIUM CHLORIDE 64 MG TABCR (SLO MAG) PO SCH (09:00)
[2019-08-02] MEDS: MAG SULF 1GM/100ML (MAG RUN) 1 GM in IV 1 EA IV SCH ×4 (09:12→13:16)
[2019-08-02] MEDS: PERCOCET 5MG/325MG TAB PO PRN (12:00)
[2019-08-02 14:00] VITALS: BP 130/86
--- NOTE | 2019-08-02 18:16 | IPNPDOC ---
Date Seen The patient was seen on 08/02/19. Progress Note Subjective: 58-year-old male, past medical history of diabetes mellitus, admitted for right foot osteomyelitis status post debridement 3 by podiatry, currently with wound VAC, on IV antibiotics through PICC line, awaiting placement. 08/02/2019 Patient comfortable in bed, without any complaints, wound VAC in place, awaiting placement. 10 point review of system was negative except for above PHYSICAL EXAMINATION: VITAL SIGNS: Please see below. GENERAL: No distress HEENT: Normocephalic, atraumatic, moist mucous membranes NECK: Supple CARDIOVASCULAR EXAMINATION: S1, S2, no murmurs RESPIRATORY EXAMINATION: Clear to auscultation, no wheezing ABDOMINAL EXAMINATION: Soft, nontender, nondistended, positive bowel sounds EXTREMITIES: Right foot wound VAC in place SKIN: No rash NEUROLOGICAL EXAMINATION: Alert and oriented 3, no focal deficits PSYCHIATRIC EXAMINATION: Calm and cooperative LABORATORY DATA, IMAGING STUDIES, MICROBIOLOGY: Please see below. DVT prophylaxis ordered?: Yes ASSESSMENT AND PLAN: 58-year-old male with past medical history of diabetes, admitted for right foot wound status post surgical debridement 2. PROBLEMS: 1. 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 ID following. 2. Diabetes mellitus: Sliding scale insulin with finger sticks every before meals and at bedtime, increased Levemir to 45 units daily. 3. Hypomagnesemia: Fractional excretion of magnesium greater than 10%, consistent with renal wasting of magnesium, continue IV and by mouth s upplementation, nephrology consulted for further assistance in workup. DVT prophylaxis: Lovenox. GI prophylaxis: Not needed VS, I&O, 24H, Fishbone Vital Signs/I&O Vital Signs Date Time Temp Pulse Resp B/P (MAP) Pulse Ox O2 Delivery O2 Flow Rate FiO2 08/02/19 14:00 96.8 91 18 130/86 (101) 96 Room Air I&O- Last 24 Hours up to 6 AM 08/02/19 05:59 Intake Total 2420 ml Output Total 3050 ml Balance -630 ml Laboratory Data 24H LABS Laboratory Tests 2 08/01/19 21:21: Bedside Glucose (Misc Panel) 241H 11/11/19 05:52: Bedside Glucose (Misc Panel) 172H, Magnesium Level 1.6L 08/02/19 12:10: Bedside Glucose (Misc Panel) 280H 08/02/19 17:35: Bedside Glucose (Misc Panel) 252H JUAN SALINAS MD Aug 02, 2019 18:16
[2019-08-02] MEDS: MAGNESIUM CHLORIDE 64 MG TABCR (SLO MAG) PO SCH (21:11)
[2019-08-02] MEDS: LEVEMIR (INSULIN DETEMIR) 1 UNITS/0.01ML SC SCH (21:11)
[2019-08-02 22:00] VITALS: BP 139/64
[2019-08-03] MEDS: PERCOCET 5MG/325MG TAB PO PRN ×2 (05:00→17:20)
[2019-08-03] MEDS: CEPHALEXIN 500 MG CAP PO SCH ×4 (05:52→23:38)
[2019-08-03] MEDS: SODIUM CHLORIDE 0.9% INJ 10 ML SYR IV SCH ×2 (05:52→17:20)
[2019-08-03 06:00] VITALS: BP 118/67
[2019-08-03 06:30] LABS: BLOOD UREA NITROGEN 20 MG/DL (7-18); CALCIUM LEVEL 8.6 MG/DL (8.5-10.1); CARBON DIOXIDE LEVEL 29 MEQ/L (21-32); CHLORIDE LEVEL 103 MEQ/L (98-107); CREATININE FOR GFR 0.92 MG/DL (0.70-1.30); GLOMERULAR FILTRATION RATE > 60.0 (>56); GLUCOSE, FASTING 140 MG/DL (70-100); MAGNESIUM LEVEL 1.5 MG/DL (1.8-2.4); POTASSIUM SERUM 3.9 MEQ/L (3.5-5.1); SODIUM LEVEL 137 MEQ/L (136-145)
[2019-08-03] MEDS: MAGNESIUM CHLORIDE 64 MG TABCR (SLO MAG) PO SCH ×3 (08:10→20:22)
[2019-08-03] MEDS: HumaLOG INSULIN (NovoLOG) PER UNIT SC SCH ×4 (08:10→20:21)
[2019-08-03] MEDS: ENOXAPARIN 40 MG/0.4 ML SYRINGE (J1650) SC SCH (08:11)
[2019-08-03] MEDS: CLOTRIMAZOLE 1% TOPICAL CREAM 30GM TOP SCH ×2 (08:11→20:23)
[2019-08-03] MEDS: MAG SULF 1GM/100ML (MAG RUN) 1 GM in IV 1 EA IV SCH ×4 (10:14→13:11)
--- NOTE | 2019-08-03 12:38 | IPNPDOC ---
Date Seen The patient was seen on 08/03/19. Progress Note Subjective: 58-year-old male, past medical history of diabetes mellitus, admitted for right foot osteomyelitis status post debridement 3 by podiatry, currently with wound VAC, on IV antibiotics through PICC line, awaiting placement. 08/02/2019 Patient comfortable in bed, without any complaints, wound VAC in place, awaiting placement. 08/03/2019 Patient comfortable in bed, no complaints, wound VAC in place, still awaiting placement. 10 point review of system was negative except for above PHYSICAL EXAMINATION: VITAL SIGNS: Please see below. GENERAL: No distress HEENT: Normocephalic, atraumatic, moist mucous membranes NECK: Supple CARDIOVASCULAR EXAMINATION: S1, S2, no murmurs RESPIRATORY EXAMINATION: Clear to auscultation, no wheezing ABDOMINAL EXAMINATION: Soft, nontender, nondistended, positive bowel sounds EXTREMITIES: Right foot wound VAC in place SKIN: No rash NEUROLOGICAL EXAMINATION: Alert and oriented 3, no focal deficits PSYCHIATRIC EXAMINATION: Calm and cooperative LABORATORY DATA, IMAGING STUDIES, MICROBIOLOGY: Please see below. DVT prophylaxis ordered?: Yes ASSESSMENT AND PLAN: 58-year-old male with past medical history of diabetes, admitted for right foot wound status post surgical debridement 2. PROBLEMS: 1. Right foot infection: MRI positive for osteomyelitis, status post surgical debridement 3 by podiatry, cultures grew MSSA, continue Keflex, continue wound VAC, psychotherapist social worker attempting to arrange alternative residence for patient to return to. ID following. 2. Diabetes mellitus: Sliding scale insulin with finger sticks every before meals and at bedtime, continue Levemir 45 units daily. 3. Hypomagnesemia: Fractional excretion of magnesium greater than 10%, consistent with renal wasting of magnesium, continue IV and by mouth supplementation, nephrology consulted for further assistance in workup, currently undergoing 24-hour urine collection. DVT prophylaxis: Lovenox. GI prophylaxis: Not needed VS, I&O, 24H, Jhbonbarbie Vital Signs/I&O Vital Signs Date Time Temp Pulse Resp B/P (MAP) Pulse Ox O2 Delivery O2 Flow Rate FiO2 08/03/19 06:00 97.0 78 18 118/67 (84) 95 08/02/19 14:00 Room Air I&O- Last 24 Hours up to 6 AM 08/03/19 06:00 Intake Total 2430 ml Output Total 2995 ml Balance -565 ml Laboratory Data 24H LABS Laboratory Tests 2 08/02/19 17:35: Bedside Glucose (Misc Panel) 252H 08/02/19 19:59: Bedside Glucose (Misc Panel) 224H 08/03/19 05:29: Anion Gap 5L, Glomerular Filtration Rate > 60.0, Calcium Level 8.6, Magnesium Level 1.5L CBC/BMP Laboratory Tests 08/03/19 05:29 JUAN SALINAS MD Aug 03, 2019 12:38
[2019-08-03 14:00] VITALS: BP 128/68
[2019-08-03 19:47] LABS: CREATININE 24 HOUR, URINE 1598.9 MG/24HR (950-2500); CREATININE, URINE 54.2 MG/DL; MAGNESIUM, URINE 17.9 MG/DL; POTASSIUM 24 HOUR URINE 98.5 MEQ/24HR (25-125); POTASSIUM URINE 33.4 MEQ/L
[2019-08-03] MEDS: LEVEMIR (INSULIN DETEMIR) 1 UNITS/0.01ML SC SCH (20:22)
[2019-08-03 21:46] LABS: CALCIUM, 24 HOUR URINE 250.7 MG/24HR (42-353); CALCIUM, URINE 8.5 MG/DL
[2019-08-03 22:00] VITALS: BP 140/70
[2019-08-04] MEDS: SODIUM CHLORIDE 0.9% INJ 10 ML SYR IV PRN (05:28)
[2019-08-04] MEDS: SODIUM CHLORIDE 0.9% INJ 10 ML SYR IV SCH ×2 (05:28→18:00)
[2019-08-04] MEDS: CEPHALEXIN 500 MG CAP PO SCH ×4 (05:28→23:13)
[2019-08-04 06:00] VITALS: BP 133/71
[2019-08-04] MEDS: PERCOCET 5MG/325MG TAB PO PRN (06:31)
[2019-08-04 06:32] LABS: HEMATOCRIT 41.4 % (42.0-52.0); HEMOGLOBIN 13.9 g/dl (13.5-17.5); MEAN CORPUSCULAR HEMOGLOBIN 29.2 pg (27.0-33.0); MEAN CORPUSCULAR HGB CONC 33.6 g/dl (32.0-36.5); PLATELET COUNT, AUTOMATED 180 10^3/uL (150-450); RED BLOOD COUNT 4.76 10^6/uL (4.30-6.10); WHITE BLOOD COUNT 9.5 10^3/uL (4.0-10.0)
[2019-08-04 06:56] LABS: BLOOD UREA NITROGEN 20 MG/DL (7-18); CALCIUM LEVEL 8.9 MG/DL (8.5-10.1); CARBON DIOXIDE LEVEL 28 MEQ/L (21-32); CHLORIDE LEVEL 106 MEQ/L (98-107); CREATININE FOR GFR 0.88 MG/DL (0.70-1.30); GLOMERULAR FILTRATION RATE > 60.0 (>56); GLUCOSE, FASTING 157 MG/DL (70-100); MAGNESIUM LEVEL 1.5 MG/DL (1.8-2.4); PHOSPHORUS LEVEL 3.9 MG/DL (2.5-4.9); POTASSIUM SERUM 3.9 MEQ/L (3.5-5.1); SODIUM LEVEL 139 MEQ/L (136-145)
--- NOTE | 2019-08-04 07:24 | CR ---
DATE OF CONSULTATION: 08/03/2019 REQUESTING PHYSICIAN: Dr. Beal CONSULTING PHYSICIAN: Dr. Jordan REASON FOR CONSULTATION: Recurrent hypomagnesemia. HISTORY OF PRESENT ILLNESS: Jose Yuan is previously unknown to me. He is a 58-year-old male with a past medical history significant for insulin dependent diabetes mellitus type 2 and congenital hearing impairment. He was admitted to the hospital on 07/12/2019 after he presented to the emergency room (ER) with complaint of right foot wound. He underwent incision and drainage and status post debridement times three by podiatry for osteomyelitis. He presently has a wound Vac in place and receiving IV antibiotics through a peripherally inserted central catheter (PICC) line and is awaiting placement. Nephrology service was called to evaluate as the patient has persistent hypomagnesemia with a serum magnesium ranging from 1.3 to 1.8. He has no old labs prior to this admission that are available for review. The patient denies to me that he heard of magnesium issues for himself in the past. There are no other notable electrolyte derangements on the lab studies and he has intact renal function. PAST MEDICAL HISTORY: Insulin dependent diabetes mellitus, congenital hearing impairment. PAST SURGICAL HISTORY: Ear surgery and debridements of his right foot times three. SOCIAL HISTORY: Chronic active smoker half pack per day. Denies alcohol or illicit drug use. FAMILY HISTORY: He denies a family history of kidney disease. REVIEW OF SYSTEMS: Constitutional: He denies fevers or chills. Eyes: He denies visual changes or tearing. Ears; He reports hearing impairment and use of hearing aids. Nose and Throat: He denies rhinorrhea or odynophagia. Cardiac: He denies chest pain or palpitations. Respiratory: He denies shortness of breath or cough. Abdomen: He denies nausea, vomiting or diarrhea. Genitourinary: He reports he drinks a lot and makes a lot of urine. Musculoskeletal: He reports a right foot wound with wound Vac. He denies acute arthralgias or myalgias. Endocrine: He has a history of insulin dependent diabetes. He denies thyroid issues. Hematologic: He denies easy bleeding or bruising. Neurologic: He denies seizures or syncope. Psychiatric: He denies depression or anxiety. Skin: He denies any new pruritus or rashes. Remainder review of systems is negative or as per HPI. PHYSICAL EXAMINATION: Temperature 97.8, pulse 73, respiratory rate 20, blood pressure 128/68, saturating 95% on room air. Intake yesterday was 2400. Urine output yesterday was 3 liters. Net negative 600. Weight in the bed scale today is not recorded. General: The patient is seen sitting upright in bed, awake, alert and oriented in no distress, disheveled and generally unkempt. Extraocular muscles are intact. Dentition is poor. He is wearing hearing aids. Neck is supple. Jugular veins are not distended. Cardiac: S1 and S2. Regular rate and rhythm. No edema in the peripheries. Lungs are symmetric. Lungs show symmetric air entry. No crackle, rale or rhonchus. Abdomen is soft and nontender. There are bowel sounds. There is a PICC line present in the right arm. The right foot has a wound Vac. Skin shows normal turgor and temperature. His foot wound is not examined. Neurologic: He is oriented to person, place, situation. Interactive and conversational. Psychiatric: Appropriate mood and affect. LABS: Sodium 137, potassium 3.9, bicarbonate 29, BUN 20, creatinine 0.9. Magnesium has been ranging from 1.3 to 1.8. His 24-hour urine collection is in process. INPATIENT MEDICATIONS: He has received aggressive IV magnesium supplementation the past couple of days. He is on Keflex 500 mg by mouth every 6 hours, docusate as needed, Lovenox 40 mg subcu daily, insulin, Slow-Mag 128 mg by mouth twice a day, Percocet as needed, senna as needed. PROBLEMS: 1. Recurrent and persistent hypomagnesemia. Serum magnesium on this admission has ranged from 1.3 to 1.8. He has received aggressive oral and IV magnesium supplementation. There are no old labs available for review prior to this admission to check for the chronicity of his hypomagnesemia. He denies a history of bariatric surgery or malignancy. His spot urine magnesium to creatinine ratio is suggestive of renal magnesium wasting. I am going to confirm that by getting a 24-hour urine collection for magnesium. We will also check his other urine electrolyte quantification including calcium, potassium and chloride. The patient does have congenital hearing impairment. Given the persistent hypomagnesemia and the congenital hearing impairment, would consider channelopathy such as Bartter or Gitelman. I have also requested phosphorus level to be added onto the labs as hypophosphatemia can cause persistent renal magnesium wasting. Diabetes also can cause renal magnesium wasting. Otherwise, his medications have been reviewed and he is not on any medicines that would predispose to excessive renal losses of magnesium. Continue current IV and oral magnesium supplementation and await results of 24-hour urine studies. Thank you for involving me in the care of Mr. Yuan. I will be happy to follow him along with you.
[2019-08-04] MEDS: MAGNESIUM CHLORIDE 64 MG TABCR (SLO MAG) PO SCH ×2 (08:11→21:11)
[2019-08-04] MEDS: ENOXAPARIN 40 MG/0.4 ML SYRINGE (J1650) SC SCH (08:11)
[2019-08-04] MEDS: CLOTRIMAZOLE 1% TOPICAL CREAM 30GM TOP SCH ×2 (08:12→21:11)
[2019-08-04] MEDS: HumaLOG INSULIN (NovoLOG) PER UNIT SC SCH ×4 (08:12→20:59)
[2019-08-04] MEDS: MAG SULF 1GM/100ML (MAG RUN) 1 GM in IV 1 EA IV SCH ×6 (09:37→14:47)
[2019-08-04 14:00] VITALS: BP 141/71
[2019-08-04 20:00] VITALS: BP 139/89
--- NOTE | 2019-08-04 20:29 | IPN ---
DATE: 08/04/2019 SUBJECTIVE: The patient is seen and examined this morning at the bedside. He offers no complaints. Twenty-four hour urine studies are reviewed and notable for renal magnesium wasting. He is awaiting placement. VITAL SIGNS: Temperature 97.9, pulse 93, respiratory rate 14, blood pressure 141/71, saturating 97% on room air. Intake yesterday was 3500. Urine output yesterday was 3990. Net negative 400 mL. Weight in the bed scale today is not recorded. GENERAL: The patient is seen sitting upright in bed awake, alert, comfortable in no acute distress. Extraocular muscles are intact. Mucous membranes are moist. He is wearing hearing aids. NECK: Supple. Jugular veins are not elevated. CARDIAC: S1, S2, regular rate and rhythm. No murmurs. RESPIRATORY: Lungs are clear to auscultation. No crackle, rale, or rhonchus. ABDOMEN: Soft and nontender. There are bowel sounds. The left lower extremity has no edema. The right foot has a wound vacuum-assisted closure (VAC). SKIN: Normal temperature and turgor. NEUROLOGIC: Oriented to person, place, situation. No focal deficits. PSYCHIATRIC: Calm and appropriate mood. LABORATORY DATA: Sodium 139, potassium 3.9, bicarbonate 28, BUN 20, creatinine 0.8, magnesium 1.5, phosphorus 3.9. Hemoglobin 13.9. INPATIENT MEDICATIONS: The patient has received 6 grams of magnesium sulfate today. I am starting him on amiloride 5 mg by mouth daily. Remainder of medications are unchanged from prior. PROBLEMS: 1. Hypomagnesemia, persistent and recurrent despite to aggressive oral and intravenous (IV) magnesium supplementation in the absence of medications that would provoke hypomagnesemia in this patient with poorly controlled insulin-dependent diabetes and a 24-hour urine collection that shows inappropriately high urine magnesium concentration. The patient also has a history of congenital hearing loss. 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 Some of them are associated with congenital hearing loss as well. I would discontinue IV magnesium runs at this time. I am starting the patient on amiloride 5 mg by mouth daily, and we will see if it ameliorates some of his urinary magnesium losses. Although amiloride is a potassium-sparing diuretic, it can also cause a rise in serum magnesium level and has been used in idiopathic renal magnesium wasting. His remainder electrolytes are acceptable, and he is noted to have a high urinary chloride, which is also seen in some tubulopathies/renal magnesium wasting syndromes. 2. Poorly controlled insulin dependent diabetes. We will watch his potassium on amiloride, as he is at risk of hyperkalemia given his history of diabetes. DISPOSITION: Please hold off on any further intravenous magnesium sulfate. Okay to continue oral magnesium, and we will see what effect, if any, amiloride has on his serum magnesium levels.
[2019-08-04] MEDS: LEVEMIR (INSULIN DETEMIR) 1 UNITS/0.01ML SC SCH (21:11)
[2019-08-04] MEDS: aMILoride 5 MG TAB PO SCH (21:30)
[2019-08-05] MEDS: PERCOCET 5MG/325MG TAB PO PRN ×2 (01:00→12:02)
[2019-08-05] MEDS: CEPHALEXIN 500 MG CAP PO SCH ×3 (05:01→18:17)
[2019-08-05 06:00] VITALS: BP 113/66
[2019-08-05 07:58] LABS: BLOOD UREA NITROGEN 18 MG/DL (7-18); CALCIUM LEVEL 9.1 MG/DL (8.5-10.1); CARBON DIOXIDE LEVEL 28 MEQ/L (21-32); CHLORIDE LEVEL 105 MEQ/L (98-107); CREATININE FOR GFR 0.83 MG/DL (0.70-1.30); GLOMERULAR FILTRATION RATE > 60.0 (>56); GLUCOSE, FASTING 118 MG/DL (70-100); MAGNESIUM LEVEL 1.7 MG/DL (1.8-2.4); SODIUM LEVEL 140 MEQ/L (136-145)
[2019-08-05] MEDS: aMILoride 5 MG TAB PO SCH (09:22)
[2019-08-05] MEDS: CLOTRIMAZOLE 1% TOPICAL CREAM 30GM TOP SCH ×2 (09:22→21:42)
[2019-08-05] MEDS: MAGNESIUM CHLORIDE 64 MG TABCR (SLO MAG) PO SCH ×2 (09:22→21:41)
[2019-08-05] MEDS: ENOXAPARIN 40 MG/0.4 ML SYRINGE (J1650) SC SCH (09:22)
[2019-08-05] MEDS: HumaLOG INSULIN (NovoLOG) PER UNIT SC SCH ×4 (09:22→21:00)
[2019-08-05 09:31] LABS: HEMOGLOBIN A1c 11.2 %
[2019-08-05 14:00] VITALS: BP 115/70
--- NOTE | 2019-08-05 16:29 | IPN ---
DATE: 08/05/2019 SUBJECTIVE: The patient seen and examined this morning in his room at bedside. He reports no acute events overnight, only that he did not sleep well. He also denies any nausea, vomiting, or diarrhea. Of note his magnesium did improve overnight. OBJECTIVE: VITAL SIGNS: Temperature 97.8, pulse 78, respiratory rate of 18, blood pressure 113/66, saturating 96% on room air. 3500 mL of urine in the last24 hours. GENERAL: Patient is awake, alert, and oriented in no acute distress, laying in bed, comfortably. HEENT: Extraocular muscles intact. Pupils equal, round, and reactive to light. Mucous membranes moist. Currently wearing hearing aids. NECK: Supple without jugular venous distention (JVD). CARDIOVASCULAR: Regular rate and rhythm. Normal S1 and S2. No murmurs, gallops or rubs. RESPIRATORY: Lungs are clear to auscultation and percussion bilaterally with no wheezes, crackles or rhonchi. ABDOMEN: Soft, nontender. Nondistended. Positive bowel sounds. EXTREMITIES: Left lower extremity with no edema. Right foot has wound vac. NEUROLOGIC: Alert and oriented times three. No focal deficits. SKIN: Normal turgor and temperature. LAB REVIEW: Sodium 140, potassium 4, chloride 105, bicarbonate 28, BUN 18, creatinine 0.83, glucose 118, hemoglobin A1c 11.2%, calcium 9.1, magnesium 1.7. ASSESSMENT/PLAN: 1. Hypomagnesemia, persistent and recurrent despite aggressive oral and IV magnesium supplementation in the absence of medications that would provoke hypomagnesemia in this patient with poorly controlled insulin-dependant diabetes and a 24-hour urine collection showing high urine magnesium levels. Overnight the patient was started on Amiloride and his magnesium did improve from 1.5 to 1.7. We will hold any IV magnesium and just continue him on oral magnesium dosing to see how he does tomorrow. We continue to suspect that this is idiopathic renal magnesium wasting syndrome as some of them are associated with congenital hearing loss. Although Amiloride is potassium sparing diuretic it can also can be used for idiopathic renal magnesium wasting syndrome. His other electrolytes are stable and normal. 2. Poorly controlled insulin dependant diabetes with an A1c of 11.2%. We will continue to monitor his electrolyte levels given his risk for hyperkalemia with his history of diabetes and new amiloride use. DISPOSITION: Please continue to hold any IV magnesium sulfate. Okay to continue with oral magnesium replacement. MTDD
--- NOTE | 2019-08-05 20:22 | IPNPDOC ---
Date Seen The patient was seen on 08/05/19. Progress Note Subjective: 58-year-old male, past medical history of diabetes mellitus, admitted for right foot osteomyelitis status post debridement 3 by podiatry, currently with wound VAC, on IV antibiotics through PICC line, awaiting placement. 08/02/2019 Patient comfortable in bed, without any complaints, wound VAC in place, awaiting placement. 08/03/2019 Patient comfortable in bed, no complaints, wound VAC in place, still awaiting placement. 08/05/2019 No acute changes, without complaints, still awaiting placement. 10 point review of system was negative except for above PHYSICAL EXAMINATION: VITAL SIGNS: Please see below. GENERAL: No distress HEENT: Normocephalic, atraumatic, moist mucous membranes NECK: Supple CARDIOVASCULAR EXAMINATION: S1, S2, no murmurs RESPIRATORY EXAMINATION: Clear to auscultation, no wheezing ABDOMINAL EXAMINATION: Soft, nontender, nondistended, positive bowel sounds EXTREMITIES: Right foot wound VAC in place SKIN: No rash NEUROLOGICAL EXAMINATION: Alert and oriented 3, no focal deficits PSYCHIATRIC EXAMINATION: Calm and cooperative LABORATORY DATA, IMAGING STUDIES, MICROBIOLOGY: Please see below. DVT prophylaxis ordered?: Yes ASSESSMENT AND PLAN: 58-year-old male with past medical history of diabetes, admitted for right foot wound status post surgical debridement 2. PROBLEMS: 1. Right foot infection: MRI positive for osteomyelitis, status post surgical debridement 3 by podiatry, cultures grew MSSA, continue Keflex, continue wound VAC, protective services social worker attempting to arrange alternative residence for patient to return to. ID following. 2. Diabetes mellitus: Sliding scale insulin with finger sticks every before meals and at bedtime, continue Levemir 45 units daily. 3. Hypomagnesemia: Fractional excretion of magnesium greater than 10%, consi stent with renal wasting of magnesium, continue oral supplementation, amiloride started by nephrology, hold off on IV magnesium supplementation for now. DVT prophylaxis: Lovenox. GI prophylaxis: Not needed VS, I&O, 24H, Fishbone Vital Signs/I&O Vital Signs Date Time Temp Pulse Resp B/P (MAP) Pulse Ox O2 Delivery O2 Flow Rate FiO2 08/05/19 14:00 98.8 80 18 115/70 (85) 98 Room Air I&O- Last 24 Hours up to 6 AM 08/05/19 06:00 Intake Total 3290 ml Output Total 4175 ml Balance -885 ml Laboratory Data 24H LABS Laboratory Tests 2 08/04/19 20:58: Bedside Glucose (Misc Panel) 249H 08/05/19 07:22: Anion Gap 7L, Glomerular Filtration Rate > 60.0, Estimated Mean Plasma Glucose 275H, Hemoglobin A1c 11.2, Calcium Level 9.1, Magnesium Level 1.7L 08/05/19 11:49: Bedside Glucose (Misc Panel) 175H 08/05/19 16:41: Bedside Glucose (Misc Panel) 217H CBC/BMP Laboratory Tests 08/05/19 07:22 JUAN SALINAS MD Aug 05, 2019 20:22
[2019-08-05] MEDS: ACETAMINOPHEN TAB 650MG DOSE (2X325MG) PO PRN (21:40)
[2019-08-05] MEDS: LEVEMIR (INSULIN DETEMIR) 1 UNITS/0.01ML SC SCH (21:41)
[2019-08-05 22:00] VITALS: BP 128/89
[2019-08-06] MEDS: CEPHALEXIN 500 MG CAP PO SCH ×4 (01:22→17:14)
[2019-08-06 06:00] VITALS: BP 118/79
[2019-08-06 06:43] LABS: BLOOD UREA NITROGEN 20 MG/DL (7-18); C REACTIVE PROTEIN QUANTITATIV < 0.30 MG/DL (0.00-0.30); CALCIUM LEVEL 9.3 MG/DL (8.5-10.1); CARBON DIOXIDE LEVEL 28 MEQ/L (21-32); CHLORIDE LEVEL 104 MEQ/L (98-107); CREATININE FOR GFR 0.95 MG/DL (0.70-1.30); GLOMERULAR FILTRATION RATE > 60.0 (>56); GLUCOSE, FASTING 167 MG/DL (70-100); MAGNESIUM LEVEL 1.5 MG/DL (1.8-2.4); POTASSIUM SERUM 4.1 MEQ/L (3.5-5.1); SODIUM LEVEL 138 MEQ/L (136-145)
[2019-08-06] MEDS ORDERED: FLUCONAZOLE 100 MG TAB PO ONE (09:00)
[2019-08-06] MEDS: MAGNESIUM CHLORIDE 64 MG TABCR (SLO MAG) PO SCH ×2 (09:05→20:59)
[2019-08-06] MEDS: aMILoride 5 MG TAB PO SCH (09:05)
[2019-08-06] MEDS: ENOXAPARIN 40 MG/0.4 ML SYRINGE (J1650) SC SCH (09:06)
[2019-08-06] MEDS: HumaLOG INSULIN (NovoLOG) PER UNIT SC SCH ×4 (09:06→20:51)
[2019-08-06] MEDS: CLOTRIMAZOLE 1% TOPICAL CREAM 30GM TOP SCH ×2 (09:07→21:00)
[2019-08-06] MEDS: PERCOCET 5MG/325MG TAB PO PRN ×2 (09:10→17:25)
[2019-08-06 14:00] VITALS: BP 92/50
--- NOTE | 2019-08-06 16:02 | IPN ---
DATE: 08/06/2019 SUBJECTIVE: The patient is seen and examined at bedside. He reports no acute events overnight. We discussed his A1/c being 11 and how it would be important for him to try to get better control of his blood sugar when he is discharged outpatient. We also discussed his magnesium level and that we were trying to ensure that it did not lower anymore than it already had. He reports no complaints at this time. OBJECTIVE: VITAL SIGNS: Temperature 97.6, pulse 81, respiratory rate 20, blood pressure 118/79, saturating 95% on room air. The patient put out 3350 mL of urine in the last 24 hours. PHYSICAL EXAMINATION: GENERAL: The patient is awake, alert, oriented. No acute distress. Resting comfortably in bed. HEENT: Extraocular muscles are intact. Pupils are equal and reactive to light. Mucous membranes are moist. The patient is wearing hearing aids. NECK: Supple without jugular venous distention (JVD). CARDIOVASCULAR: Regular rate and rhythm. Normal S1, S2. No murmurs, gallops or rubs. RESPIRATORY: Lungs are clear to auscultation bilaterally. No wheezes, crackles or rhonchi. ABDOMEN: Soft, nontender, nondistended. Positive bowel sounds. EXTREMITIES: No lower extremity edema bilaterally. Right foot has wound Vac in place. NEUROLOGIC: Alert and oriented times three. No focal neuro deficits. SKIN: Normal turgor and temperature. LABORATORY REVIEW: Sodium 138, potassium 4.1, chloride 104, bicarbonate 28, BUN 20, creatinine 0.95, glucose 167, calcium 9.3, magnesium 1.5. ASSESSMENT AND PLAN: 1. Hypomagnesemia, persistent and recurrent despite aggressive oral and IV magnesium supplementation. We suspect that this is due to idiopathic renal magnesium wasting syndrome. His magnesium did drop from 1.7 to 1.5 but this is without any IV magnesium supplementation and only on amiloride and oral supplementation. We will continue to trend magnesium tomorrow to see if his magnesium holds on just the oral supplementation and the amiloride. His other electrolytes remain stable. 2. Poorly controlled insulin-dependent diabetes with A1/c of 11.2%. We suspect that a portion of his hypomagnesemia is due to the high urine output that he has been having as a result of his poorly controlled diabetes and could also in part be contributing to his renal magnesium wasting. We will continue to monitor electrolyte levels throughout his stay. DISPOSITION: Please continue to hold any IV magnesium sulfate. Continue with oral magnesium replacement and amiloride.
--- NOTE | 2019-08-06 19:26 | IPN ---
DATE: 08/06/2019 Mr. Yuan is dong well. He has no complaints. He still has a placement issue. He needs a new apartment. He has no pain, no nausea, vomiting or diarrhea. No fever or chills. He states his rash has markedly improved. It is not a pruritic, but he states it always recurs. PHYSICAL EXAMINATION: Temperature is 98.3, pulse 84, respirations 18, blood pressure 92/50, 02 saturation 97% on room air. Heart: Normal S1, S2. No murmurs. Lungs are clear. No wheeze, rale or rhonchi. Abdomen: Soft, nontender. Bowel sounds are present. Rash in his groin and his buttock is hyperpigmented. There is no redness or flakiness. Extremities: No edema. Right foot: Wound vac was removed. There is peeling skin which was removed. There is an open wound measuring about 3 x 3 cm with granulation tissue. There is no purulence. No tenderness. 8 sutures were removed after discussion with Dr. Skaggs. LABS: White count 9.5, hemoglobin 13.9, hematocrit 41.4, platelets 180. Sodium 138, potassium 4.1, chloride 104, bicarbonate 28, BUN 20, creatinine 0.95. Glucose 157. Calcium 9.3, magnesium 1.5. CRP less than 0.3. Glucose have been ranging between 143 and 249. IMPRESSION: 1. Acute osteomyelitis with complicated skin and soft tissue infection. Doing very well. Right calcaneus is healing. CRP is less than 0.3. Patient is on by mouth Keflex for a total of 6 weeks treatment. End of therapy will be August 23. 2. Insulin dependent diabetes. Patient needs increased dose of his Lantus. His blood sugars remain elevated over 200. 3.Tinea corporis. Patient on clotrimazole. Doing better and has received two doses of by mouth fluconazole. PLAN: Continue wound vac. Placement issue. Infectious disease signing off. MTDD
[2019-08-06] MEDS: LEVEMIR (INSULIN DETEMIR) 1 UNITS/0.01ML SC SCH (21:00)
[2019-08-06 22:00] VITALS: BP 139/87
[2019-08-07] MEDS: CEPHALEXIN 500 MG CAP PO SCH ×4 (00:13→17:32)
[2019-08-07 06:00] VITALS: BP 130/84
[2019-08-07] MEDS: aMILoride 5 MG TAB PO SCH (08:36)
[2019-08-07] MEDS: PERCOCET 5MG/325MG TAB PO PRN ×2 (08:37→16:52)
[2019-08-07] MEDS: ENOXAPARIN 40 MG/0.4 ML SYRINGE (J1650) SC SCH (08:37)
[2019-08-07] MEDS: MAGNESIUM CHLORIDE 64 MG TABCR (SLO MAG) PO SCH ×2 (08:37→21:25)
[2019-08-07] MEDS: HumaLOG INSULIN (NovoLOG) PER UNIT SC SCH ×4 (08:38→21:26)
[2019-08-07] MEDS: CLOTRIMAZOLE 1% TOPICAL CREAM 30GM TOP SCH ×2 (08:39→21:26)
[2019-08-07 14:00] VITALS: BP 122/61
--- NOTE | 2019-08-07 17:13 | IPNPDOC ---
Date Seen The patient was seen on 08/07/19. Progress Note Subjective: 58-year-old male, past medical history of diabetes mellitus, admitted for right foot osteomyelitis status post debridement 3 by podiatry, currently with wound VAC, on IV antibiotics through PICC line, awaiting placement. 08/02/2019 Patient comfortable in bed, without any complaints, wound VAC in place, awaiting placement. 08/03/2019 Patient comfortable in bed, no complaints, wound VAC in place, still awaiting placement. 08/05/2019 No acute changes, without complaints, still awaiting placement. 08/06/2019 No new complaints, wound VAC in place, awaiting placement. 10 point review of system was negative except for above PHYSICAL EXAMINATION: VITAL SIGNS: Please see below. GENERAL: No distress HEENT: Normocephalic, atraumatic, moist mucous membranes NECK: Supple CARDIOVASCULAR EXAMINATION: S1, S2, no murmurs RESPIRATORY EXAMINATION: Clear to auscultation, no wheezing ABDOMINAL EXAMINATION: Soft, nontender, nondistended, positive bowel sounds EXTREMITIES: Right foot wound VAC in place SKIN: No rash NEUROLOGICAL EXAMINATION: Alert and oriented 3, no focal deficits PSYCHIATRIC EXAMINATION: Calm and cooperative LABORATORY DATA, IMAGING STUDIES, MICROBIOLOGY: Please see below. DVT prophylaxis ordered?: Yes ASSESSMENT AND PLAN: 58-year-old male with past medical history of diabetes, admitted for right foot wound status post surgical debridement 2. PROBLEMS: 1. Right foot infection: MRI positive for osteomyelitis, status post surgical debridement 3 by podiatry, cultures grew MSSA, continue Keflex, continue wound VAC, social media analyst attempting to arrange alternative residence for patient to return to. ID signed off, last day of antibiotics on August 23. 2. Diabetes mellitus: Sliding scale insulin with finger sticks every before meals and at bedtime, continue Levemir 45 units daily. 3. Hypomagnesemia: Fractional excretion of magnesium greater than 10%, consistent with renal wasting of magnesium, likely congenital given hearing loss, continue oral supplementation, amiloride, magnesium levels improving. DVT prophylaxis: Lovenox. GI prophylaxis: Not needed VS, I&O, 24H, Fishbone Vital Signs/I&O Vital Signs Date Time Temp Pulse Resp B/P (MAP) Pulse Ox O2 Delivery O2 Flow Rate FiO2 08/07/19 16:52 18 08/07/19 14:00 97.4 87 122/61 (81) 94 Room Air I&O- Last 24 Hours up to 6 AM 08/07/19 06:00 Intake Total 2040 ml Output Total 3340 ml Balance -1300 ml Laboratory Data 24H LABS Laboratory Tests 2 08/06/19 20:38: Bedside Glucose (Misc Panel) 187H 08/07/19 06:26: Magnesium Level 1.7L 08/07/19 07:53: Bedside Glucose (Misc Panel) 117H 08/07/19 11:39: Bedside Glucose (Misc Panel) 224H JUAN SALINAS MD Aug 07, 2019 17:13
--- NOTE | 2019-08-07 18:20 | IPN ---
DATE: 08/07/2019 Mr. Yuan is seen this morning on his bedside. He is feeling well and denies any new complaints. He has a wound vacuum-assisted closure (VAC) dressing on his right foot. He is currently waiting for placement. The patient denies any nausea, vomiting, fever, chills, leg edema, dyspnea, or chest pain. PHYSICAL EXAMINATION: Temperature 97.5 degrees Fahrenheit, heart rate 82 per minute, respiratory rate 18 per minute, blood pressure 130/84 mm of mercury, and oxygen saturation 95% on room air. Head is atraumatic. Neck is supple and without jugular venous distention (JVD) or thyroid enlargement. Heart sounds regular and lungs clear to auscultation. Abdomen soft and nontender. Bowel sounds are normal. Extremities without any cyanosis or clubbing. Only lab today is a serum magnesium level of 1.7, which was 1.5 yesterday. Yesterday his BUN was 20 and creatinine 9.5. PROBLEMS: Persistent hypomagnesemia. Most likely this is a chronic issue. The patient remains on oral magnesium supplement and oral amiloride. The patient will continue with the same. We will check his renal profile and magnesium level again tomorrow.
[2019-08-07] MEDS: LEVEMIR (INSULIN DETEMIR) 1 UNITS/0.01ML SC SCH (21:26)
[2019-08-07 22:00] VITALS: BP 155/88
[2019-08-08] MEDS: CEPHALEXIN 500 MG CAP PO SCH ×4 (00:02→17:21)
[2019-08-08] MEDS: PERCOCET 5MG/325MG TAB PO PRN ×3 (00:03→17:24)
[2019-08-08 06:00] VITALS: BP 137/84
[2019-08-08 07:04] LABS: ALBUMIN 3.4 GM/DL (3.2-5.2); BLOOD UREA NITROGEN 24 MG/DL (7-18); CALCIUM LEVEL 9.2 MG/DL (8.5-10.1); CARBON DIOXIDE LEVEL 27 MEQ/L (21-32); CHLORIDE LEVEL 105 MEQ/L (98-107); CREATININE FOR GFR 0.88 MG/DL (0.70-1.30); GLOMERULAR FILTRATION RATE > 60.0 (>56); GLUCOSE, FASTING 108 MG/DL (70-100); MAGNESIUM LEVEL 1.5 MG/DL (1.8-2.4); PHOSPHORUS LEVEL 4.2 MG/DL (2.5-4.9); POTASSIUM SERUM 3.8 MEQ/L (3.5-5.1); SODIUM LEVEL 137 MEQ/L (136-145)
[2019-08-08] MEDS: ENOXAPARIN 40 MG/0.4 ML SYRINGE (J1650) SC SCH (08:07)
[2019-08-08] MEDS: aMILoride 5 MG TAB PO SCH (08:08)
[2019-08-08] MEDS: MAGNESIUM CHLORIDE 64 MG TABCR (SLO MAG) PO SCH ×2 (08:08→21:10)
[2019-08-08] MEDS: CLOTRIMAZOLE 1% TOPICAL CREAM 30GM TOP SCH ×2 (08:09→21:11)
[2019-08-08] MEDS: HumaLOG INSULIN (NovoLOG) PER UNIT SC SCH ×4 (08:09→21:00)
[2019-08-08 14:00] VITALS: BP_SYST 132; BP_SYST 98; BP_DIAS 57; BP_DIAS 78
--- NOTE | 2019-08-08 14:12 | IPNPDOC ---
Text Note Date of Service The patient was seen on 08/08/19. NOTE Subjective: Patient seen and examined at bedside. No acute overnight events reported. No new medical complaints. Denies chest pain, shortness of breath, abdominal pain, N/V/D. Objective: VITAL SIGNS: Please see below. GENERAL: No distress HEENT: Normocephalic, atraumatic, moist mucous membranes, poor dentition NECK: Supple CARDIOVASCULAR EXAMINATION: S1, S2, no murmurs RESPIRATORY EXAMINATION: Clear to auscultation, no wheezing ABDOMINAL EXAMINATION: Soft, nontender, nondistended, positive bowel sounds EXTREMITIES: Right foot wound VAC in place A/P: 58-year-old male, past medical history of diabetes mellitus, admitted for right foot osteomyelitis status post debridement 3 by podiatry, currently with wound VAC, on IV antibiotics through PICC line, awaiting placement. #Right foot infection - MRI positive for osteomyelitis, status post surgical debridement 3 by podiatry, cultures grew MSSA, continue Keflex, continue wound VAC, clinical social work therapist attempting to arrange alternative residence for patient to return to. ID signed off, last day of antibiotics on August 23. #Diabetes mellitus - Sliding scale insulin with finger sticks every before meals and at bedtime, continue Levemir 45 units daily. 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 VS,Fishbone, I+O VS, Fishbone, I+O Laboratory Tests 08/08/19 05:23 Vital Signs Date Time Temp Pulse Resp B/P (MAP) Pulse Ox O2 Delivery O2 Flow Rate FiO2 08/08/19 08:43 18 08/08/19 06:00 97.0 80 137/84 (101) 99 08/08/19 00:33 Room Air I&O- Last 24 Hours up to 6 AM 08/08/19 06:00 Intake Total 2160 ml Output Total 2450 ml Balance -290 ml WALLY DASH MD Aug 08, 2019 14:12
--- NOTE | 2019-08-08 20:47 | IPN ---
DATE: 08/08/2019 Mr. Yuan is seen this morning on his bedside. There is no change and he is laying in the bed as usual. He has wound V.A.C. dressing on his foot. The patient denies any nausea, vomiting, diarrhea, abdominal pain, dyspnea or chest pain. He is being followed by nephrology service for recurrent hypomagnesemia for which he has received a large amount of intravenous and oral supplements and currently he is on amiloride along with oral supplement. Yesterday, his magnesium level was 1.7 and today this is 1.5. PHYSICAL EXAMINATION: Temperature 97 degrees Fahrenheit, heart rate is 80 per minute and respiratory rate 18 per minute. Blood pressure 137/84 mmHg and oxygen saturation 99%. Head is atraumatic. Neck: Supple and without JVD or thyroid enlargement. Heart: Sounds regular and lungs clear to auscultation. Abdomen: Soft and nontender and bowel sounds are normal. Extremities: Without any cyanosis or clubbing. On the right foot, he has a wound V.A.C. dressing. Today's labs show sodium 137, potassium 3.8, CO2 27, BUN 24 and creatinine 0.88. Calcium is 9.2, phosphorus 4.2 and magnesium 1.5. PROBLEMS: 1. Hypomagnesemia. No change in the magnesium level noticed. He has been stable with a magnesium level of 1.5 to 1.7 for the last 4 days. At present, he is on oral supplement of magnesium oxide in addition to amiloride, which will be continued. There is no indication for intravenous magnesium supplement at present. All other issues are being addressed by the hospitalist service.
[2019-08-08] MEDS: LEVEMIR (INSULIN DETEMIR) 1 UNITS/0.01ML SC SCH (21:11)
[2019-08-08 22:00] VITALS: BP 120/81
[2019-08-09] MEDS: CEPHALEXIN 500 MG CAP PO SCH ×4 (00:03→18:21)
[2019-08-09] MEDS: PERCOCET 5MG/325MG TAB PO PRN ×3 (02:20→18:21)
[2019-08-09 06:00] VITALS: BP 133/71
[2019-08-09] MEDS: HumaLOG INSULIN (NovoLOG) PER UNIT SC SCH ×4 (08:44→21:00)
[2019-08-09] MEDS: aMILoride 5 MG TAB PO SCH (08:44)
[2019-08-09] MEDS: MAGNESIUM CHLORIDE 64 MG TABCR (SLO MAG) PO SCH ×2 (08:44→21:22)
[2019-08-09] MEDS: ENOXAPARIN 40 MG/0.4 ML SYRINGE (J1650) SC SCH (08:44)
[2019-08-09] MEDS: CLOTRIMAZOLE 1% TOPICAL CREAM 30GM TOP SCH ×2 (08:45→21:23)
--- NOTE | 2019-08-09 13:34 | IPNPDOC ---
Text Note Date of Service The patient was seen on 08/09/19. NOTE Subjective: Patient seen and examined at bedside. No acute overnight events reported. No new medical complaints. Denies chest pain, shortness of breath, abdominal pain, N/V/D. Objective: VITAL SIGNS: Please see below. GENERAL: No distress HEENT: Normocephalic, atraumatic, moist mucous membranes, poor dentition NECK: Supple CARDIOVASCULAR EXAMINATION: S1, S2, no murmurs RESPIRATORY EXAMINATION: Clear to auscultation, no wheezing ABDOMINAL EXAMINATION: Soft, nontender, nondistended, positive bowel sounds EXTREMITIES: Right foot wound VAC in place A/P: 58-year-old male, past medical history of diabetes mellitus, admitted for right foot osteomyelitis status post debridement 3 by podiatry, currently with wound VAC, on IV antibiotics through PICC line, awaiting placement. #Right foot infection - MRI positive for osteomyelitis, status post surgical debridement 3 by podiatry, cultures grew MSSA, continue Keflex, continue wound VAC, social service liaison attempting to arrange alternative residence for patient to return to. ID signed off, last day of antibiotics on August 23. #Diabetes mellitus - Sliding scale insulin with finger sticks every before meals and at bedtime, continue Levemir 45 units daily. 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 Dispo: continue to follow and replete magnesium; patient has criminal legal issues to address; pending placement VS,Fishbone, I+O VS, Fishbone, I+O Vital Signs Date Time Temp Pulse Resp B/P (MAP) Pulse Ox O2 Delivery O2 Flow Rate FiO2 08/09/19 12:01 17 08/09/19 06:00 98.0 69 133/71 (91) 96 08/09/19 02:50 Room Air I&O- Last 24 Hours up to 6 AM 08/09/19 05:59 Intake Total 3030 ml Output Total 2225 ml Balance 805 ml WALLY DASH MD Aug 09, 2019 13:34
[2019-08-09 14:00] VITALS: BP 138/78
[2019-08-09 14:41] LABS: BLOOD UREA NITROGEN 26 MG/DL (7-18); CALCIUM LEVEL 9.1 MG/DL (8.5-10.1); CARBON DIOXIDE LEVEL 23 MEQ/L (21-32); CHLORIDE LEVEL 104 MEQ/L (98-107); GLOMERULAR FILTRATION RATE > 60.0 (>56); GLUCOSE, FASTING 239 MG/DL (70-100); MAGNESIUM LEVEL 1.4 MG/DL (1.8-2.4); POTASSIUM SERUM 4.5 MEQ/L (3.5-5.1); SODIUM LEVEL 137 MEQ/L (136-145)
[2019-08-09] MEDS: LEVEMIR (INSULIN DETEMIR) 1 UNITS/0.01ML SC SCH (21:22)
[2019-08-09 22:00] VITALS: BP 138/76
[2019-08-10] MEDS: CEPHALEXIN 500 MG CAP PO SCH ×4 (00:51→17:17)
[2019-08-10 06:00] VITALS: BP 140/66
[2019-08-10] MEDS: PERCOCET 5MG/325MG TAB PO PRN ×3 (06:00→19:24)
[2019-08-10 06:47] LABS: HEMATOCRIT 42.5 % (42.0-52.0); HEMOGLOBIN 13.8 g/dl (13.5-17.5); MEAN CORPUSCULAR HEMOGLOBIN 28.5 pg (27.0-33.0); MEAN CORPUSCULAR HGB CONC 32.5 g/dl (32.0-36.5); MEAN CORPUSCULAR VOLUME 87.6 fl (80.0-96.0); PLATELET COUNT, AUTOMATED 174 10^3/uL (150-450); RED BLOOD COUNT 4.85 10^6/uL (4.30-6.10); WHITE BLOOD COUNT 8.5 10^3/uL (4.0-10.0)
[2019-08-10 07:07] LABS: BLOOD UREA NITROGEN 22 MG/DL (7-18); CARBON DIOXIDE LEVEL 27 MEQ/L (21-32); CHLORIDE LEVEL 104 MEQ/L (98-107); CREATININE FOR GFR 0.95 MG/DL (0.70-1.30); GLOMERULAR FILTRATION RATE > 60.0 (>56); GLUCOSE, FASTING 147 MG/DL (70-100); MAGNESIUM LEVEL 1.4 MG/DL (1.8-2.4); SODIUM LEVEL 138 MEQ/L (136-145)
[2019-08-10] MEDS: MAGNESIUM CHLORIDE 64 MG TABCR (SLO MAG) PO SCH ×3 (08:42→21:17)
[2019-08-10] MEDS: aMILoride 5 MG TAB PO SCH ×2 (08:42→21:17)
[2019-08-10] MEDS: HumaLOG INSULIN (NovoLOG) PER UNIT SC SCH ×4 (08:42→20:56)
[2019-08-10] MEDS: CLOTRIMAZOLE 1% TOPICAL CREAM 30GM TOP SCH ×2 (08:43→21:18)
[2019-08-10] MEDS: ENOXAPARIN 40 MG/0.4 ML SYRINGE (J1650) SC SCH (08:43)
[2019-08-10 14:00] VITALS: BP 137/62
--- NOTE | 2019-08-10 14:40 | IPN ---
DATE OF VISIT: 08/10/2019 Mr. Yuan is seen this morning on his bedside. He is complaining of swelling in his right foot but otherwise no complaints. He has no dyspnea, chest pain, nausea, vomiting or diarrhea. PHYSICAL EXAMINATION: Temperature 97.2 degrees Fahrenheit, heart rate 92 per minute and respiratory rate 18 per minute. Blood pressure 140/66 mmHg and oxygen saturation 97% on room air. Head is atraumatic. Neck: Supple and without jugular venous distention (JVD) or thyroid enlargement. Heart: Sounds regular and lungs clear to auscultation. Abdomen: Soft and nontender. Bowel sounds normal. Extremities: Without any cyanosis or clubbing. There is minimal edema on his right foot and has wound vacuum-assisted closure (VAC) dressing on the bottom of his foot. His chemistry is unremarkable with BUN of 22 and creatinine 0.95. His calcium is 9.0 and magnesium is down to 1.4. PROBLEMS: 1. Hypomagnesemia. This a chronic issue due to renal magnesium wasting. The patient has been on oral magnesium supplement and amiloride. We are increasing the dose of amiloride to 5 mg twice a day and also increasing his magnesium supplement to 128 mg three times a day. His magnesium level should be checked again in a couple of days. 2. Right foot swelling. Most likely related to wound on his foot and infection. We are increasing the amiloride dose, but I would also recommend getting a x-ray of his foot to rule out any possibility of osteomyelitis.
[2019-08-10] MEDS: LEVEMIR (INSULIN DETEMIR) 1 UNITS/0.01ML SC SCH (21:18)
[2019-08-10] MEDS: ACETAMINOPHEN TAB 650MG DOSE (2X325MG) PO PRN (21:27)
[2019-08-10 22:00] VITALS: BP 141/80
[2019-08-11] MEDS: CEPHALEXIN 500 MG CAP PO SCH ×4 (00:16→18:10)
[2019-08-11 06:00] VITALS: BP 139/85
[2019-08-11] MEDS: MAGNESIUM CHLORIDE 64 MG TABCR (SLO MAG) PO SCH ×3 (08:28→21:41)
[2019-08-11] MEDS: aMILoride 5 MG TAB PO SCH ×2 (08:29→21:41)
[2019-08-11] MEDS: ENOXAPARIN 40 MG/0.4 ML SYRINGE (J1650) SC SCH (08:30)
[2019-08-11] MEDS: HumaLOG INSULIN (NovoLOG) PER UNIT SC SCH ×4 (08:30→21:00)
[2019-08-11] MEDS: CLOTRIMAZOLE 1% TOPICAL CREAM 30GM TOP SCH ×2 (08:30→21:42)
[2019-08-11] MEDS: PERCOCET 5MG/325MG TAB PO PRN ×2 (08:31→21:42)
[2019-08-11 14:00] VITALS: BP 121/64
[2019-08-11] MEDS: ACETAMINOPHEN TAB 650MG DOSE (2X325MG) PO PRN (18:11)
[2019-08-11] MEDS: LEVEMIR (INSULIN DETEMIR) 1 UNITS/0.01ML SC SCH (21:43)
[2019-08-11 22:00] VITALS: BP 146/78
[2019-08-12] MEDS: CEPHALEXIN 500 MG CAP PO SCH ×4 (00:27→17:55)
[2019-08-12 06:00] VITALS: BP 116/68
[2019-08-12] MEDS: HumaLOG INSULIN (NovoLOG) PER UNIT SC SCH ×4 (08:37→21:24)
[2019-08-12 09:20] VITALS: BP 122/70
[2019-08-12] MEDS: ENOXAPARIN 40 MG/0.4 ML SYRINGE (J1650) SC SCH (09:48)
--- NOTE | 2019-08-12 10:08 | REP ---
Four views right foot: 08/12/2019. Indication: Foot swelling. Osteomyelitis. Comparison: 07/12/2019. Findings: There is no evidence of acute fracture, subluxation or dislocation. There is minimal lucency of the inferior calcaneus corresponding to the osteomyelitis better demonstrated on the recent MRI. Soft tissue defect adjacent to this finding is additionally noted. Small anterior calcaneal spur is present. Impression: Mild sequelae of inferior calcaneal osteomyelitis. No acute fracture. Electronically Signed by Gunner Murphy DO 08/12/2019 09:59 A
[2019-08-12] MEDS: aMILoride 5 MG TAB PO SCH ×2 (11:09→21:23)
[2019-08-12] MEDS: MAGNESIUM CHLORIDE 64 MG TABCR (SLO MAG) PO SCH ×3 (11:12→21:23)
[2019-08-12] MEDS: CLOTRIMAZOLE 1% TOPICAL CREAM 30GM TOP SCH ×2 (11:13→21:24)
[2019-08-12 14:00] VITALS: BP 118/72
[2019-08-12] MEDS: PERCOCET 5MG/325MG TAB PO PRN ×2 (15:48→22:15)
--- NOTE | 2019-08-12 17:09 | IPN ---
DATE: 08/12/2019 Mr. Yuan is seen this morning on his bedside. He is feeling well and denies any new complaints. His right foot wound remains with wound vacuum-assisted closure (VAC) dressing. The patient has no vomiting, diarrhea, abdominal pain, dyspnea, or chest pain. PHYSICAL EXAMINATION: Temperature 96.7 degrees Fahrenheit, heart rate 84 per minute, respiratory rate 16 per minute, blood pressure 116/68 mm of mercury, and oxygen saturation 95% on room air. Head: Atraumatic. Neck: Supple and without jugular venous distention (JVD) or thyroid enlargement. Heart sounds regular and lungs clear to auscultation. Abdomen soft and nontender and bowel sounds normal. Extremities without any cyanosis or clubbing. Neurologically, he is at his baseline mentation. Today's magnesium level is 1.6, and no other labs were done. PROBLEMS: 1. Hypomagnesemia. This is chronic and now stable and gradually improving. I would recommend to continue with amiloride 5 mg twice a day and magnesium supplement 128 mg three times a day. 2. Chronic kidney disease. The patient has mild chronic kidney disease, which is stable, and does not need any intervention. 3. Right foot osteomyelitis. The patient has chronic wound on the bottom of right foot, and foot x-ray did show osteomyelitis. The patient should continue followup with wound clinic. From a renal standpoint, the patient is doing very well on current supplement and diuretic. [place]. Please do not hesitate to call us back should you need any further assistance.
[2019-08-12] MEDS: LEVEMIR (INSULIN DETEMIR) 1 UNITS/0.01ML SC SCH (21:24)
[2019-08-13] MEDS: CEPHALEXIN 500 MG CAP PO SCH ×4 (00:48→16:25)
[2019-08-13 06:00] VITALS: BP 129/76
[2019-08-13] MEDS: HumaLOG INSULIN (NovoLOG) PER UNIT SC SCH ×4 (07:30→21:58)
[2019-08-13] MEDS: MAGNESIUM CHLORIDE 64 MG TABCR (SLO MAG) PO SCH ×3 (08:38→21:57)
[2019-08-13] MEDS: ENOXAPARIN 40 MG/0.4 ML SYRINGE (J1650) SC SCH (08:38)
[2019-08-13] MEDS: aMILoride 5 MG TAB PO SCH ×2 (08:38→21:58)
[2019-08-13] MEDS: CLOTRIMAZOLE 1% TOPICAL CREAM 30GM TOP SCH ×2 (08:39→21:58)
[2019-08-13] MEDS: PERCOCET 5MG/325MG TAB PO PRN ×2 (11:55→20:41)
[2019-08-13 14:00] VITALS: BP 135/75
[2019-08-13] MEDS: ACETAMINOPHEN TAB 650MG DOSE (2X325MG) PO PRN (16:26)
[2019-08-13] MEDS: LEVEMIR (INSULIN DETEMIR) 1 UNITS/0.01ML SC SCH (21:58)
[2019-08-13 22:00] VITALS: BP 134/77
[2019-08-14] MEDS: CEPHALEXIN 500 MG CAP PO SCH ×4 (00:08→17:13)
[2019-08-14 06:00] VITALS: BP 136/79
[2019-08-14] MEDS: HumaLOG INSULIN (NovoLOG) PER UNIT SC SCH ×4 (07:30→20:54)
[2019-08-14] MEDS: MAGNESIUM CHLORIDE 64 MG TABCR (SLO MAG) PO SCH ×3 (08:34→20:53)
[2019-08-14] MEDS: CLOTRIMAZOLE 1% TOPICAL CREAM 30GM TOP SCH ×2 (08:34→20:54)
[2019-08-14] MEDS: aMILoride 5 MG TAB PO SCH ×2 (08:34→20:53)
[2019-08-14] MEDS: ENOXAPARIN 40 MG/0.4 ML SYRINGE (J1650) SC SCH (08:34)
[2019-08-14] MEDS: ACETAMINOPHEN TAB 650MG DOSE (2X325MG) PO PRN (13:20)
[2019-08-14] MEDS: LEVEMIR (INSULIN DETEMIR) 1 UNITS/0.01ML SC SCH (20:54)
[2019-08-14] MEDS: PERCOCET 5MG/325MG TAB PO PRN (22:42)
[2019-08-15] MEDS: CEPHALEXIN 500 MG CAP PO SCH ×5 (00:12→23:42)
[2019-08-15 06:00] VITALS: BP 133/80
[2019-08-15] MEDS: MAGNESIUM CHLORIDE 64 MG TABCR (SLO MAG) PO SCH ×3 (08:13→20:25)
[2019-08-15] MEDS: ENOXAPARIN 40 MG/0.4 ML SYRINGE (J1650) SC SCH (08:13)
[2019-08-15] MEDS: aMILoride 5 MG TAB PO SCH ×2 (08:13→20:25)
[2019-08-15] MEDS: HumaLOG INSULIN (NovoLOG) PER UNIT SC SCH ×4 (08:14→20:25)
[2019-08-15] MEDS: CLOTRIMAZOLE 1% TOPICAL CREAM 30GM TOP SCH ×2 (08:14→20:26)
[2019-08-15] MEDS: ACETAMINOPHEN TAB 650MG DOSE (2X325MG) PO PRN (17:57)
[2019-08-15] MEDS: LEVEMIR (INSULIN DETEMIR) 1 UNITS/0.01ML SC SCH (20:26)
[2019-08-16] MEDS: PERCOCET 5MG/325MG TAB PO PRN ×2 (01:16→18:27)
[2019-08-16] MEDS: CEPHALEXIN 500 MG CAP PO SCH ×3 (05:57→17:26)
[2019-08-16 06:00] VITALS: BP 137/88
[2019-08-16] MEDS: HumaLOG INSULIN (NovoLOG) PER UNIT SC SCH ×4 (06:35→21:41)
[2019-08-16] MEDS: aMILoride 5 MG TAB PO SCH ×2 (08:42→21:40)
[2019-08-16] MEDS: ENOXAPARIN 40 MG/0.4 ML SYRINGE (J1650) SC SCH (08:43)
[2019-08-16] MEDS: MAGNESIUM CHLORIDE 64 MG TABCR (SLO MAG) PO SCH ×3 (08:43→21:39)
[2019-08-16] MEDS: CLOTRIMAZOLE 1% TOPICAL CREAM 30GM TOP SCH ×2 (08:45→21:41)
[2019-08-16 14:00] VITALS: BP 126/80
[2019-08-16] MEDS: LEVEMIR (INSULIN DETEMIR) 1 UNITS/0.01ML SC SCH (21:40)
[2019-08-16 22:00] VITALS: BP 138/66
[2019-08-17] MEDS: CEPHALEXIN 500 MG CAP PO SCH ×5 (00:18→23:57)
[2019-08-17 06:00] VITALS: BP 120/70
[2019-08-17] MEDS: HumaLOG INSULIN (NovoLOG) PER UNIT SC SCH ×4 (08:12→20:47)
[2019-08-17] MEDS: ENOXAPARIN 40 MG/0.4 ML SYRINGE (J1650) SC SCH (08:12)
[2019-08-17] MEDS: MAGNESIUM CHLORIDE 64 MG TABCR (SLO MAG) PO SCH ×3 (08:13→20:11)
[2019-08-17] MEDS: aMILoride 5 MG TAB PO SCH ×2 (08:13→20:11)
[2019-08-17] MEDS: CLOTRIMAZOLE 1% TOPICAL CREAM 30GM TOP SCH ×2 (08:14→20:12)
[2019-08-17] MEDS: PERCOCET 5MG/325MG TAB PO PRN (20:12)
[2019-08-17] MEDS: LEVEMIR (INSULIN DETEMIR) 1 UNITS/0.01ML SC SCH (22:02)
[2019-08-18] MEDS: CEPHALEXIN 500 MG CAP PO SCH ×4 (05:26→23:38)
[2019-08-18] MEDS: ACETAMINOPHEN TAB 650MG DOSE (2X325MG) PO PRN ×2 (05:46→20:23)
[2019-08-18 06:00] VITALS: BP 111/68
[2019-08-18] MEDS: MAGNESIUM CHLORIDE 64 MG TABCR (SLO MAG) PO SCH ×3 (10:20→20:23)
[2019-08-18] MEDS: ENOXAPARIN 40 MG/0.4 ML SYRINGE (J1650) SC SCH (10:20)
[2019-08-18] MEDS: aMILoride 5 MG TAB PO SCH ×2 (10:20→20:23)
[2019-08-18] MEDS: HumaLOG INSULIN (NovoLOG) PER UNIT SC SCH ×4 (10:21→20:24)
[2019-08-18] MEDS: CLOTRIMAZOLE 1% TOPICAL CREAM 30GM TOP SCH ×3 (10:21→20:28)
[2019-08-18] MEDS: LEVEMIR (INSULIN DETEMIR) 1 UNITS/0.01ML SC SCH (20:24)
[2019-08-19] MEDS: ACETAMINOPHEN TAB 650MG DOSE (2X325MG) PO PRN (02:31)
[2019-08-19] MEDS: CEPHALEXIN 500 MG CAP PO SCH ×3 (05:45→17:41)
[2019-08-19 06:00] VITALS: BP 130/83
[2019-08-19] MEDS: HumaLOG INSULIN (NovoLOG) PER UNIT SC SCH ×4 (09:00→21:14)
[2019-08-19] MEDS: ENOXAPARIN 40 MG/0.4 ML SYRINGE (J1650) SC SCH (09:03)
[2019-08-19] MEDS: CLOTRIMAZOLE 1% TOPICAL CREAM 30GM TOP SCH ×2 (09:04→21:11)
[2019-08-19] MEDS: aMILoride 5 MG TAB PO SCH ×2 (09:04→21:09)
[2019-08-19] MEDS: MAGNESIUM CHLORIDE 64 MG TABCR (SLO MAG) PO SCH ×3 (09:04→21:09)
[2019-08-19] MEDS: PERCOCET 5MG/325MG TAB PO PRN (16:13)
[2019-08-19] MEDS: LEVEMIR (INSULIN DETEMIR) 1 UNITS/0.01ML SC SCH (21:10)
[2019-08-20] MEDS: CEPHALEXIN 500 MG CAP PO SCH ×5 (01:07→23:53)
[2019-08-20 06:00] VITALS: BP 113/56
[2019-08-20] MEDS: HumaLOG INSULIN (NovoLOG) PER UNIT SC SCH ×4 (07:30→21:40)
[2019-08-20] MEDS: CLOTRIMAZOLE 1% TOPICAL CREAM 30GM TOP SCH ×2 (09:00→21:39)
[2019-08-20] MEDS: MAGNESIUM CHLORIDE 64 MG TABCR (SLO MAG) PO SCH ×3 (09:18→21:39)
[2019-08-20] MEDS: aMILoride 5 MG TAB PO SCH ×2 (09:18→21:39)
[2019-08-20] MEDS: ENOXAPARIN 40 MG/0.4 ML SYRINGE (J1650) SC SCH (09:18)
[2019-08-20] MEDS: LEVEMIR (INSULIN DETEMIR) 1 UNITS/0.01ML SC SCH (21:40)
[2019-08-21] MEDS: CEPHALEXIN 500 MG CAP PO SCH ×4 (05:32→23:48)
[2019-08-21 06:00] VITALS: BP 113/90
[2019-08-21] MEDS: HumaLOG INSULIN (NovoLOG) PER UNIT SC SCH ×4 (07:30→20:46)
[2019-08-21] MEDS: aMILoride 5 MG TAB PO SCH ×2 (07:50→20:45)
[2019-08-21] MEDS: ENOXAPARIN 40 MG/0.4 ML SYRINGE (J1650) SC SCH (07:51)
[2019-08-21] MEDS: MAGNESIUM CHLORIDE 64 MG TABCR (SLO MAG) PO SCH ×3 (07:51→20:45)
[2019-08-21] MEDS: CLOTRIMAZOLE 1% TOPICAL CREAM 30GM TOP SCH ×2 (07:52→20:46)
[2019-08-21] MEDS: LEVEMIR (INSULIN DETEMIR) 1 UNITS/0.01ML SC SCH (20:46)
[2019-08-22] MEDS: CEPHALEXIN 500 MG CAP PO SCH ×4 (05:29→22:51)
[2019-08-22 05:51] LABS: HEMATOCRIT 39.2 % (42.0-52.0); HEMOGLOBIN 13.2 g/dl (13.5-17.5); MEAN CORPUSCULAR HEMOGLOBIN 28.6 pg (27.0-33.0); MEAN CORPUSCULAR HGB CONC 33.7 g/dl (32.0-36.5); MEAN CORPUSCULAR VOLUME 84.8 fl (80.0-96.0); PLATELET COUNT, AUTOMATED 152 10^3/uL (150-450); RED BLOOD COUNT 4.62 10^6/uL (4.30-6.10); WHITE BLOOD COUNT 9.9 10^3/uL (4.0-10.0)
[2019-08-22 06:00] VITALS: BP 121/75
[2019-08-22 06:12] LABS: BLOOD UREA NITROGEN 21 MG/DL (7-18); CALCIUM LEVEL 8.7 MG/DL (8.5-10.1); CARBON DIOXIDE LEVEL 29 MEQ/L (21-32); CHLORIDE LEVEL 107 MEQ/L (98-107); CREATININE FOR GFR 0.82 MG/DL (0.70-1.30); GLOMERULAR FILTRATION RATE > 60.0 (>56); GLUCOSE, FASTING 162 MG/DL (70-100); MAGNESIUM LEVEL 1.6 MG/DL (1.8-2.4); PHOSPHORUS LEVEL 3.7 MG/DL (2.5-4.9); POTASSIUM SERUM 3.8 MEQ/L (3.5-5.1); SODIUM LEVEL 140 MEQ/L (136-145)
[2019-08-22] MEDS: HumaLOG INSULIN (NovoLOG) PER UNIT SC SCH ×4 (07:28→21:19)
[2019-08-22] MEDS: aMILoride 5 MG TAB PO SCH ×2 (08:29→21:18)
[2019-08-22] MEDS: MAGNESIUM CHLORIDE 64 MG TABCR (SLO MAG) PO SCH ×3 (08:29→21:17)
[2019-08-22] MEDS: CLOTRIMAZOLE 1% TOPICAL CREAM 30GM TOP SCH ×2 (08:29→21:19)
[2019-08-22] MEDS: ENOXAPARIN 40 MG/0.4 ML SYRINGE (J1650) SC SCH (08:29)
--- NOTE | 2019-08-22 09:04 | IPNPDOC ---
Date Seen The patient was seen on 08/22/19. Progress Note Subjective: 58-year-old male, past medical history of diabetes mellitus, admitted for right foot osteomyelitis status post debridement 3 by podiatry, currently with wound VAC, on oral antibiotics to complete a six-week course. Patient's hospitalization has been prolonged due to placement issues, rn social services arranging. Patient without any complaint at this time. 10 point review of system was negative except for above PHYSICAL EXAMINATION: VITAL SIGNS: Please see below. GENERAL: No distress HEENT: Normocephalic, atraumatic, moist mucous membranes NECK: Supple CARDIOVASCULAR EXAMINATION: S1, S2, no murmurs RESPIRATORY EXAMINATION: Clear to auscultation, no wheezing ABDOMINAL EXAMINATION: Soft, nontender, nondistended, positive bowel sounds EXTREMITIES: Right foot wound VAC in place SKIN: No rash NEUROLOGICAL EXAMINATION: Alert and oriented 3, no focal deficits PSYCHIATRIC EXAMINATION: Calm and cooperative LABORATORY DATA, IMAGING STUDIES, MICROBIOLOGY: Please see below. DVT prophylaxis ordered?: Yes ASSESSMENT AND PLAN: 58-year-old male with past medical history of diabetes, admitted for right foot wound status post surgical debridement 2. PROBLEMS: 1. Right foot infection: MRI positive for osteomyelitis, status post surgical debridement 3 by podiatry, cultures grew MSSA, continue Keflex, continue wound VAC, rn social services attempting to arrange alternative residence for patient to return to. ID signed off, last day of antibiotics on August 23. 2. Diabetes mellitus: Sliding scale insulin with finger sticks before meals and at bedtime, continue Levemir 45 units daily. 3. Hypomagnesemia: Renal wasting, evaluated by nephrology, continue amiloride and oral magnesium supplementation. DVT prophylaxis: Lovenox. GI prophylaxis: Not needed VS, I&O, 24H, Fishbone Vital Signs/I&O Vital Signs Date Time Temp Pulse Resp B/P (MAP) Pulse Ox O2 Delivery O2 Flow Rate FiO2 08/22/19 06:00 98.2 76 17 121/75 (90) 96 Room Air I&O- Last 24 Hours up to 6 AM 08/22/19 06:00 Intake Total 2180 ml Output Total 3400 ml Balance -1220 ml Laboratory Data 24H LABS Laboratory Tests 2 08/21/19 11:32: Bedside Glucose (Misc Panel) 192H 08/21/19 16:29: Bedside Glucose (Misc Panel) 198H 08/21/19 19:29: Bedside Glucose (Misc Panel) 279H 08/22/19 05:04: Nucleated Red Blood Cells % (auto) 0.0, Anion Gap 4L, Glomerular Filtration Rate > 60.0, Calcium Level 8.7, Phosphorus Level 3.7, Magnesium Level 1.6L 08/22/19 06:46: Bedside Glucose (Misc Panel) 147H CBC/BMP Laboratory Tests 08/22/19 05:04 JUAN SALINAS MD Aug 22, 2019 09:04
[2019-08-22] MEDS: LEVEMIR (INSULIN DETEMIR) 1 UNITS/0.01ML SC SCH (21:18)
[2019-08-22] MEDS: PERCOCET 5MG/325MG TAB PO PRN (22:50)
[2019-08-23 06:00] VITALS: BP 117/73
[2019-08-23] MEDS: CEPHALEXIN 500 MG CAP PO SCH ×3 (06:32→17:00)
[2019-08-23] MEDS: HumaLOG INSULIN (NovoLOG) PER UNIT SC SCH ×4 (07:30→20:19)
[2019-08-23] MEDS: MAGNESIUM CHLORIDE 64 MG TABCR (SLO MAG) PO SCH ×3 (08:11→20:19)
[2019-08-23] MEDS: aMILoride 5 MG TAB PO SCH ×2 (08:11→20:19)
[2019-08-23] MEDS: CLOTRIMAZOLE 1% TOPICAL CREAM 30GM TOP SCH ×2 (08:12→20:20)
[2019-08-23] MEDS: ENOXAPARIN 40 MG/0.4 ML SYRINGE (J1650) SC SCH (08:17)
--- NOTE | 2019-08-23 12:12 | IPN ---
DATE: 08/23/2019 Patient seen. Denies new complaints. Lower extremity examination: Wound base is fully granular with small area of fascia in central wound. Size and depth has greatly improved. No purulence, necrosis. ASSESSMENT: 59-year-old male with diabetic ulcer infection. PLAN: Continue wound VAC. Ammonium lactate ordered for dry skin. He is to be off the heel as best as possible.
[2019-08-23 14:00] VITALS: BP 121/84
[2019-08-23] MEDS: LACTIC ACID 12% LOTION 225 GM BTL TOP SCH (14:43)
[2019-08-23] MEDS: LEVEMIR (INSULIN DETEMIR) 1 UNITS/0.01ML SC SCH (20:20)
[2019-08-23] MEDS: ACETAMINOPHEN TAB 650MG DOSE (2X325MG) PO PRN (20:22)
[2019-08-24 06:00] VITALS: BP 132/77
[2019-08-24] MEDS: HumaLOG INSULIN (NovoLOG) PER UNIT SC SCH ×4 (08:31→20:18)
[2019-08-24] MEDS: aMILoride 5 MG TAB PO SCH ×2 (08:31→21:11)
[2019-08-24] MEDS: MAGNESIUM CHLORIDE 64 MG TABCR (SLO MAG) PO SCH ×3 (08:32→21:10)
[2019-08-24] MEDS: LACTIC ACID 12% LOTION 225 GM BTL TOP SCH (08:35)
[2019-08-24] MEDS: ENOXAPARIN 40 MG/0.4 ML SYRINGE (J1650) SC SCH (08:46)
[2019-08-24] MEDS: CLOTRIMAZOLE 1% TOPICAL CREAM 30GM TOP SCH ×2 (09:00→21:12)
[2019-08-24] MEDS: LEVEMIR (INSULIN DETEMIR) 1 UNITS/0.01ML SC SCH (21:11)
[2019-08-24] MEDS: ACETAMINOPHEN TAB 650MG DOSE (2X325MG) PO PRN (21:11)
[2019-08-25 06:00] VITALS: BP 141/76
[2019-08-25] MEDS: ENOXAPARIN 40 MG/0.4 ML SYRINGE (J1650) SC SCH ×2 (09:00→09:42)
[2019-08-25] MEDS: aMILoride 5 MG TAB PO SCH ×2 (09:42→21:24)
[2019-08-25] MEDS: MAGNESIUM CHLORIDE 64 MG TABCR (SLO MAG) PO SCH ×3 (09:42→21:23)
[2019-08-25] MEDS: LACTIC ACID 12% LOTION 225 GM BTL TOP SCH (09:43)
[2019-08-25] MEDS: CLOTRIMAZOLE 1% TOPICAL CREAM 30GM TOP SCH ×2 (09:43→21:25)
[2019-08-25] MEDS: HumaLOG INSULIN (NovoLOG) PER UNIT SC SCH ×4 (09:47→21:24)
[2019-08-25] MEDS: LEVEMIR (INSULIN DETEMIR) 1 UNITS/0.01ML SC SCH (21:23)
[2019-08-26 06:00] VITALS: BP 131/72
[2019-08-26] MEDS: ENOXAPARIN 40 MG/0.4 ML SYRINGE (J1650) SC SCH (08:24)
[2019-08-26] MEDS: MAGNESIUM CHLORIDE 64 MG TABCR (SLO MAG) PO SCH ×3 (09:53→21:04)
[2019-08-26] MEDS: CLOTRIMAZOLE 1% TOPICAL CREAM 30GM TOP SCH ×2 (09:53→21:07)
[2019-08-26] MEDS: aMILoride 5 MG TAB PO SCH ×2 (09:53→21:03)
[2019-08-26] MEDS: LACTIC ACID 12% LOTION 225 GM BTL TOP SCH (09:53)
[2019-08-26] MEDS: HumaLOG INSULIN (NovoLOG) PER UNIT SC SCH ×4 (09:54→21:00)
[2019-08-26] MEDS: LEVEMIR (INSULIN DETEMIR) 1 UNITS/0.01ML SC SCH (21:03)
[2019-08-27] MEDS: HumaLOG INSULIN (NovoLOG) PER UNIT SC SCH ×4 (07:30→21:37)
[2019-08-27] MEDS: ENOXAPARIN 40 MG/0.4 ML SYRINGE (J1650) SC SCH (07:34)
[2019-08-27] MEDS: CLOTRIMAZOLE 1% TOPICAL CREAM 30GM TOP SCH ×2 (09:12→21:37)
[2019-08-27] MEDS: aMILoride 5 MG TAB PO SCH ×2 (09:12→21:37)
[2019-08-27] MEDS: MAGNESIUM CHLORIDE 64 MG TABCR (SLO MAG) PO SCH ×3 (09:12→21:34)
[2019-08-27] MEDS: LACTIC ACID 12% LOTION 225 GM BTL TOP SCH (09:13)
[2019-08-27] MEDS: LEVEMIR (INSULIN DETEMIR) 1 UNITS/0.01ML SC SCH (21:35)
[2019-08-28 06:00] VITALS: BP 101/72
[2019-08-28] MEDS: ENOXAPARIN 40 MG/0.4 ML SYRINGE (J1650) SC SCH ×2 (08:35→08:54)
[2019-08-28] MEDS: HumaLOG INSULIN (NovoLOG) PER UNIT SC SCH ×4 (08:35→20:40)
[2019-08-28] MEDS: CLOTRIMAZOLE 1% TOPICAL CREAM 30GM TOP SCH ×2 (08:36→21:00)
[2019-08-28] MEDS: LACTIC ACID 12% LOTION 225 GM BTL TOP SCH (08:36)
[2019-08-28] MEDS: aMILoride 5 MG TAB PO SCH ×2 (08:50→21:40)
[2019-08-28] MEDS: MAGNESIUM CHLORIDE 64 MG TABCR (SLO MAG) PO SCH ×3 (08:50→21:39)
[2019-08-28] MEDS: LEVEMIR (INSULIN DETEMIR) 1 UNITS/0.01ML SC SCH (21:41)
[2019-08-29 06:00] VITALS: BP 116/66
[2019-08-29] MEDS: MAGNESIUM CHLORIDE 64 MG TABCR (SLO MAG) PO SCH ×3 (08:50→20:46)
[2019-08-29] MEDS: aMILoride 5 MG TAB PO SCH ×2 (08:50→20:45)
[2019-08-29] MEDS: HumaLOG INSULIN (NovoLOG) PER UNIT SC SCH ×4 (08:50→20:46)
[2019-08-29] MEDS: ENOXAPARIN 40 MG/0.4 ML SYRINGE (J1650) SC SCH (08:51)
[2019-08-29] MEDS: CLOTRIMAZOLE 1% TOPICAL CREAM 30GM TOP SCH ×2 (08:52→20:48)
[2019-08-29] MEDS: LACTIC ACID 12% LOTION 225 GM BTL TOP SCH (08:52)
[2019-08-29] MEDS: ACETAMINOPHEN TAB 650MG DOSE (2X325MG) PO PRN (20:45)
[2019-08-29] MEDS: LEVEMIR (INSULIN DETEMIR) 1 UNITS/0.01ML SC SCH (20:47)
[2019-08-30 06:00] VITALS: BP 108/60
[2019-08-30] MEDS: MAGNESIUM CHLORIDE 64 MG TABCR (SLO MAG) PO SCH ×3 (08:46→20:50)
[2019-08-30] MEDS: aMILoride 5 MG TAB PO SCH ×2 (08:46→20:50)
[2019-08-30] MEDS: HumaLOG INSULIN (NovoLOG) PER UNIT SC SCH ×5 (08:46→20:51)
[2019-08-30] MEDS: LACTIC ACID 12% LOTION 225 GM BTL TOP SCH (08:47)
[2019-08-30] MEDS: ENOXAPARIN 40 MG/0.4 ML SYRINGE (J1650) SC SCH (08:47)
[2019-08-30] MEDS: CLOTRIMAZOLE 1% TOPICAL CREAM 30GM TOP SCH ×2 (08:48→21:00)
[2019-08-30] MEDS: LEVEMIR (INSULIN DETEMIR) 1 UNITS/0.01ML SC SCH (20:51)
[2019-08-31 06:00] VITALS: BP 136/74
[2019-08-31 06:25] LABS: HEMATOCRIT 39.4 % (42.0-52.0); HEMOGLOBIN 13.2 g/dl (13.5-17.5); MEAN CORPUSCULAR HEMOGLOBIN 28.3 pg (27.0-33.0); MEAN CORPUSCULAR HGB CONC 33.5 g/dl (32.0-36.5); MEAN CORPUSCULAR VOLUME 84.4 fl (80.0-96.0); PLATELET COUNT, AUTOMATED 170 10^3/uL (150-450); RED BLOOD COUNT 4.67 10^6/uL (4.30-6.10); WHITE BLOOD COUNT 9.5 10^3/uL (4.0-10.0)
[2019-08-31 06:43] LABS: BLOOD UREA NITROGEN 18 MG/DL (7-18); CALCIUM LEVEL 8.6 MG/DL (8.5-10.1); CARBON DIOXIDE LEVEL 27 MEQ/L (21-32); CHLORIDE LEVEL 106 MEQ/L (98-107); CREATININE FOR GFR 0.87 MG/DL (0.70-1.30); GLOMERULAR FILTRATION RATE > 60.0 (>56); GLUCOSE, FASTING 137 MG/DL (70-100); MAGNESIUM LEVEL 1.7 MG/DL (1.8-2.4); PHOSPHORUS LEVEL 3.7 MG/DL (2.5-4.9); POTASSIUM SERUM 3.6 MEQ/L (3.5-5.1); SODIUM LEVEL 139 MEQ/L (136-145)
[2019-08-31] MEDS: HumaLOG INSULIN (NovoLOG) PER UNIT SC SCH ×4 (08:10→19:55)
[2019-08-31] MEDS: ENOXAPARIN 40 MG/0.4 ML SYRINGE (J1650) SC SCH (08:10)
[2019-08-31] MEDS: aMILoride 5 MG TAB PO SCH ×2 (08:11→20:45)
[2019-08-31] MEDS: LACTIC ACID 12% LOTION 225 GM BTL TOP SCH (08:11)
[2019-08-31] MEDS: MAGNESIUM CHLORIDE 64 MG TABCR (SLO MAG) PO SCH ×3 (08:11→20:45)
[2019-08-31] MEDS: CLOTRIMAZOLE 1% TOPICAL CREAM 30GM TOP SCH ×2 (08:12→20:46)
[2019-08-31] MEDS ORDERED: POTASSIUM CHLORIDE 10 MEQ SR TABLET PO ONE (10:00)
--- NOTE | 2019-08-31 16:40 | IPNPDOC ---
Date Seen The patient was seen on 08/31/19. Progress Note Subjective: 58-year-old male, past medical history of diabetes mellitus, admitted for right foot osteomyelitis status post debridement 3 by podiatry, currently with wound VAC, on oral antibiotics to complete a six-week course. Patient's hospitalization has been prolonged due to placement issues, social service director arranging. Patient without any complaint at this time. 08/31/2019 Patient comfortable, roaming the halls on his wheelchair, without complaints, tolerating diet, awaiting placement. 10 point review of system was negative except for above PHYSICAL EXAMINATION: VITAL SIGNS: Please see below. GENERAL: No distress HEENT: Normocephalic, atraumatic, moist mucous membranes NECK: Supple CARDIOVASCULAR EXAMINATION: S1, S2, no murmurs RESPIRATORY EXAMINATION: Clear to auscultation, no wheezing ABDOMINAL EXAMINATION: Soft, nontender, nondistended, positive bowel sounds EXTREMITIES: Right foot wound VAC in place SKIN: No rash NEUROLOGICAL EXAMINATION: Alert and oriented 3, no focal deficits PSYCHIATRIC EXAMINATION: Calm and cooperative LABORATORY DATA, IMAGING STUDIES, MICROBIOLOGY: Please see below. DVT prophylaxis ordered?: Yes ASSESSMENT AND PLAN: 58-year-old male with past medical history of diabetes, admitted for right foot wound status post surgical debridement 2. PROBLEMS: 1. Right foot infection: MRI positive for osteomyelitis, status post surgical debridement 3 by podiatry, cultures grew MSSA, status post 6 weeks of antibiotics, continue wound VAC, social service director attempting to arrange alternative residence for patient to return to. 2. Diabetes mellitus: Sliding scale insulin with finger sticks before meals and at bedtime, continue Levemir 45 units daily. 3. Hypomagnesemia: Renal wasting, evaluated by nephrology, continue amiloride and oral magnesium supplementation. DVT prophylaxis: Lovenox. GI prophylaxis: Not needed VS, I&O, 24H, Fishbone Vital Signs/I&O Vital Signs Date Time Temp Pulse Resp B/P (MAP) Pulse Ox O2 Delivery O2 Flow Rate FiO2 08/31/19 06:00 97.1 59 18 136/74 (94) 96 Room Air I&O- Last 24 Hours up to 6 AM 08/31/19 06:00 Intake Total 2700 ml Output Total 4025 ml Balance -1325 ml Laboratory Data 24H LABS Laboratory Tests 2 08/30/19 16:50: Bedside Glucose (Misc Panel) 228H 08/30/19 20:39: Bedside Glucose (Misc Panel) 281H 08/31/19 05:27: Nucleated Red Blood Cells % (auto) 0.0, Anion Gap 6L, Glomerular Filtration Rate > 60.0, Calcium Level 8.6, Phosphorus Level 3.7, Magnesium Level 1.7L 08/31/19 05:38: Bedside Glucose (Misc Panel) 139H 08/31/19 12:03: Bedside Glucose (Misc Panel) 248H CBC/BMP Laboratory Tests 08/31/19 05:27 JUAN SALINAS MD Aug 31, 2019 16:39
[2019-08-31] MEDS: LEVEMIR (INSULIN DETEMIR) 1 UNITS/0.01ML SC SCH (20:46)
[2019-09-01 06:00] VITALS: BP 120/71
[2019-09-01] MEDS: HumaLOG INSULIN (NovoLOG) PER UNIT SC SCH ×4 (08:12→21:00)
[2019-09-01] MEDS: MAGNESIUM CHLORIDE 64 MG TABCR (SLO MAG) PO SCH ×3 (08:12→21:03)
[2019-09-01] MEDS: ENOXAPARIN 40 MG/0.4 ML SYRINGE (J1650) SC SCH (08:12)
[2019-09-01] MEDS: aMILoride 5 MG TAB PO SCH ×2 (08:12→21:03)
[2019-09-01] MEDS: CLOTRIMAZOLE 1% TOPICAL CREAM 30GM TOP SCH ×2 (08:13→21:04)
[2019-09-01] MEDS: LACTIC ACID 12% LOTION 225 GM BTL TOP SCH (08:13)
[2019-09-01] MEDS: LEVEMIR (INSULIN DETEMIR) 1 UNITS/0.01ML SC SCH (21:03)
[2019-09-01] MEDS: PERCOCET 5MG/325MG TAB PO PRN (23:20)
[2019-09-02 06:00] VITALS: BP 84/50
[2019-09-02] MEDS: ENOXAPARIN 40 MG/0.4 ML SYRINGE (J1650) SC SCH (08:01)
[2019-09-02] MEDS: HumaLOG INSULIN (NovoLOG) PER UNIT SC SCH ×4 (08:10→20:08)
[2019-09-02] MEDS: aMILoride 5 MG TAB PO SCH ×2 (08:10→20:50)
[2019-09-02] MEDS: CLOTRIMAZOLE 1% TOPICAL CREAM 30GM TOP SCH ×2 (08:11→20:51)
[2019-09-02] MEDS: MAGNESIUM CHLORIDE 64 MG TABCR (SLO MAG) PO SCH ×3 (08:11→20:50)
[2019-09-02] MEDS: LACTIC ACID 12% LOTION 225 GM BTL TOP SCH (08:12)
[2019-09-02 08:35] VITALS: BP 118/74
[2019-09-02] MEDS: LEVEMIR (INSULIN DETEMIR) 1 UNITS/0.01ML SC SCH (20:51)
[2019-09-03 06:00] VITALS: BP 119/69
[2019-09-03] MEDS: HumaLOG INSULIN (NovoLOG) PER UNIT SC SCH ×4 (08:19→20:54)
[2019-09-03] MEDS: ENOXAPARIN 40 MG/0.4 ML SYRINGE (J1650) SC SCH ×2 (08:19→08:22)
[2019-09-03] MEDS: LACTIC ACID 12% LOTION 225 GM BTL TOP SCH (08:20)
[2019-09-03] MEDS: MAGNESIUM CHLORIDE 64 MG TABCR (SLO MAG) PO SCH ×3 (08:20→20:53)
[2019-09-03] MEDS: aMILoride 5 MG TAB PO SCH ×2 (08:20→20:53)
[2019-09-03] MEDS: CLOTRIMAZOLE 1% TOPICAL CREAM 30GM TOP SCH ×2 (08:21→20:54)
[2019-09-03] MEDS: LEVEMIR (INSULIN DETEMIR) 1 UNITS/0.01ML SC SCH (20:53)
[2019-09-04 06:00] VITALS: BP 113/64
[2019-09-04] MEDS: aMILoride 5 MG TAB PO SCH ×2 (08:18→21:53)
[2019-09-04] MEDS: MAGNESIUM CHLORIDE 64 MG TABCR (SLO MAG) PO SCH ×3 (08:18→21:53)
[2019-09-04] MEDS: HumaLOG INSULIN (NovoLOG) PER UNIT SC SCH ×4 (08:18→21:53)
[2019-09-04] MEDS: ENOXAPARIN 40 MG/0.4 ML SYRINGE (J1650) SC SCH (08:19)
[2019-09-04] MEDS: CLOTRIMAZOLE 1% TOPICAL CREAM 30GM TOP SCH ×2 (08:19→21:54)
[2019-09-04] MEDS: LACTIC ACID 12% LOTION 225 GM BTL TOP SCH (08:19)
[2019-09-04] MEDS: LEVEMIR (INSULIN DETEMIR) 1 UNITS/0.01ML SC SCH (21:53)
[2019-09-05 06:00] VITALS: BP 128/80
[2019-09-05] MEDS: HumaLOG INSULIN (NovoLOG) PER UNIT SC SCH ×4 (07:40→21:18)
[2019-09-05] MEDS: CLOTRIMAZOLE 1% TOPICAL CREAM 30GM TOP SCH ×2 (08:08→21:19)
[2019-09-05] MEDS: aMILoride 5 MG TAB PO SCH ×2 (08:08→21:18)
[2019-09-05] MEDS: MAGNESIUM CHLORIDE 64 MG TABCR (SLO MAG) PO SCH ×3 (08:08→21:18)
[2019-09-05] MEDS: LACTIC ACID 12% LOTION 225 GM BTL TOP SCH (08:09)
[2019-09-05] MEDS: ENOXAPARIN 40 MG/0.4 ML SYRINGE (J1650) SC SCH (08:09)
--- NOTE | 2019-09-05 10:50 | IPNPDOC ---
Subjective Date Seen The patient was seen on 09/05/19. Subjective Chief Complaint/HPI Patient is comfortable offers no new complaints at the present time, awaiting placement General: Denies: ROS Unobtainable, Chills, Night Sweats, Fatigue, Malaise, Normal Appetite, Other Symptoms Constitutional: Denies: Chills, Fever, Malaise, Night Sweats, Weakness, Fatigue, Weight Loss, Lethargy, Other Eyes: Denies: Pain, Vision change, Conjunctivae inflammation, Eyelid inflammation, Redness, Other Pulmonary: Denies: Dyspnea, Cough, Pleuritic Chest Pain, Other Symptoms Cardiovascular: Denies: Chest Pain, Palpitations, Orthopnea, Paroxysmal Noc. Dyspnea, Edema, Lt Headedness, Other Symptoms Gastrointestinal: Denies: Nausea, Vomiting, Abdominal Pain, Diarrhea, Constipation, Melena, Hematochezia, Other Symptoms Endocrine: Denies: Polydipsia, Polyphagia, Polyuria, Heat Intolerance, Cold Intolerance, Other Endocrine Sx Musculoskeletal: Denies: Neck Pain, Back Pain, Shoulder Pain, Arm Pain, Hand Pain, Leg Pain, Foot Pain, Joint Pain, Muscle Pain, Spasms, Other Symptoms Neurological: Denies: Weakness, Numbness, Incoordination, Change in speech, Confusion, Seizures, Other Symptoms Objective Physical Examination Chest Exam: Positive: Clear to auscultation, Normal air movement Heart Exam: Positive: Rate Normal, Normal S1, Normal S2 Abdomen Exam: Positive: Normal bowel sounds, Soft, Tenderness Extremity Exam: Positive: Normal pulses Assessment /Plan Problems (1) Cellulitis of right foot Status: Acute Problem Text: MRI positive for osteomyelitis, status post surgical debridement 3 by podiatry, cultures grew MSSA, status post 6 weeks of antibiotics, continue wound VAC, director of social work attempting to arrange alternative residence for patient to return to. Continue present care. Awaiting placement (2) Diabetes mellitus Status: Chronic Problem Text: Sliding scale insulin with finger sticks before meals and at bedtime, continue Levemir 45 units daily. Plan/VTE VTE Prophylaxis Ordered?: Yes VS, I&O, 24H, Fishbone Vital Signs/I&O Vital Signs Date Time Temp Pulse Resp B/P (MAP) Pulse Ox O2 Delivery O2 Flow Rate FiO2 09/05/19 06:00 97.2 83 18 128/80 (96) 95 Room Air I&O- Last 24 Hours up to 6 AM 12/15/19 06:00 Intake Total 3300 ml Output Total 3650 ml Balance -350 ml Laboratory Data 24H LABS Laboratory Tests 2 09/04/19 11:39: Bedside Glucose (Misc Panel) 175H 09/04/19 17:10: Bedside Glucose (Misc Panel) 256H 09/04/19 19:58: Bedside Glucose (Misc Panel) 297H 09/05/19 06:19: Bedside Glucose (Misc Panel) 122H KVNG HER MD Sep 05, 2019 10:50
[2019-09-05] MEDS: PERCOCET 5MG/325MG TAB PO PRN (18:43)
[2019-09-05] MEDS: LEVEMIR (INSULIN DETEMIR) 1 UNITS/0.01ML SC SCH (21:18)
[2019-09-06 06:00] VITALS: BP 127/80
[2019-09-06] MEDS: LACTIC ACID 12% LOTION 225 GM BTL TOP SCH (09:00)
[2019-09-06] MEDS: ENOXAPARIN 40 MG/0.4 ML SYRINGE (J1650) SC SCH (09:00)
[2019-09-06] MEDS: MAGNESIUM CHLORIDE 64 MG TABCR (SLO MAG) PO SCH ×3 (10:04→22:01)
[2019-09-06] MEDS: aMILoride 5 MG TAB PO SCH ×2 (10:04→22:02)
[2019-09-06] MEDS: HumaLOG INSULIN (NovoLOG) PER UNIT SC SCH ×4 (10:05→21:00)
[2019-09-06] MEDS: CLOTRIMAZOLE 1% TOPICAL CREAM 30GM TOP SCH ×2 (10:07→22:01)
[2019-09-06] MEDS: LEVEMIR (INSULIN DETEMIR) 1 UNITS/0.01ML SC SCH (22:00)
[2019-09-07 06:00] VITALS: BP 101/62
[2019-09-07] MEDS: ENOXAPARIN 40 MG/0.4 ML SYRINGE (J1650) SC SCH (09:00)
[2019-09-07] MEDS: aMILoride 5 MG TAB PO SCH ×2 (09:40→21:29)
[2019-09-07] MEDS: LACTIC ACID 12% LOTION 225 GM BTL TOP SCH (09:40)
[2019-09-07] MEDS: HumaLOG INSULIN (NovoLOG) PER UNIT SC SCH ×4 (09:40→21:00)
[2019-09-07] MEDS: MAGNESIUM CHLORIDE 64 MG TABCR (SLO MAG) PO SCH ×3 (09:40→21:29)
[2019-09-07] MEDS: CLOTRIMAZOLE 1% TOPICAL CREAM 30GM TOP SCH ×2 (09:41→21:00)
[2019-09-07] MEDS: LEVEMIR (INSULIN DETEMIR) 1 UNITS/0.01ML SC SCH (21:29)
[2019-09-08 06:00] VITALS: BP 137/78
[2019-09-08] MEDS: aMILoride 5 MG TAB PO SCH ×2 (08:25→21:36)
[2019-09-08] MEDS: ENOXAPARIN 40 MG/0.4 ML SYRINGE (J1650) SC SCH ×2 (08:25→08:29)
[2019-09-08] MEDS: MAGNESIUM CHLORIDE 64 MG TABCR (SLO MAG) PO SCH ×3 (08:25→21:36)
[2019-09-08] MEDS: CLOTRIMAZOLE 1% TOPICAL CREAM 30GM TOP SCH ×2 (08:26→21:41)
[2019-09-08] MEDS: LACTIC ACID 12% LOTION 225 GM BTL TOP SCH (08:26)
[2019-09-08] MEDS: HumaLOG INSULIN (NovoLOG) PER UNIT SC SCH ×4 (08:26→21:37)
--- NOTE | 2019-09-08 19:12 | IPN ---
DATE: 09/08/2019 The patient is seen and examined. Denies new complaints. He states he is anxious to leave the hospital. He has been here for a quite prolonged course. Vital signs and laboratories are reviewed with no new significant findings. LOWER EXTREMITY EXAMINATION: Wound margins and depth again improved. There is no further cellulitis or necrosis. There is still some depth with some small amount of fascia exposed. ASSESSMENT AND PLAN: Diabetic male, status post abscess incision and drainage with wound vacuum-assisted closure (VAC) placement. Would plan for wound VAC therapy for one more week. It does not appear that the patient will be able to be discharged with his wound VAC. He has been using this wound VAC for many weeks without ability for placement to be arranged for him. Unless this changes, the ideal circumstance would be to go home with a wound VAC, otherwise after one more week of VAC therapy, transition to OptiFoam bandages which could be applied at home, potentially even by the patient himself. He should remain off his heel.
[2019-09-08] MEDS: LEVEMIR (INSULIN DETEMIR) 1 UNITS/0.01ML SC SCH (21:37)
[2019-09-09 06:00] VITALS: BP 129/75
[2019-09-09 06:01] LABS: HEMATOCRIT 41.7 % (42.0-52.0); HEMOGLOBIN 13.6 g/dl (13.5-17.5); MEAN CORPUSCULAR HEMOGLOBIN 28.2 pg (27.0-33.0); MEAN CORPUSCULAR HGB CONC 32.6 g/dl (32.0-36.5); MEAN CORPUSCULAR VOLUME 86.3 fl (80.0-96.0); PLATELET COUNT, AUTOMATED 176 10^3/uL (150-450); RED BLOOD COUNT 4.83 10^6/uL (4.30-6.10); WHITE BLOOD COUNT 8.5 10^3/uL (4.0-10.0)
[2019-09-09 06:19] LABS: BLOOD UREA NITROGEN 21 MG/DL (7-18); CALCIUM LEVEL 9.2 MG/DL (8.5-10.1); CARBON DIOXIDE LEVEL 31 MEQ/L (21-32); CHLORIDE LEVEL 102 MEQ/L (98-107); CREATININE FOR GFR 0.94 MG/DL (0.70-1.30); GLOMERULAR FILTRATION RATE > 60.0 (>56); GLUCOSE, FASTING 186 MG/DL (70-100); MAGNESIUM LEVEL 1.7 MG/DL (1.8-2.4); PHOSPHORUS LEVEL 4.1 MG/DL (2.5-4.9); POTASSIUM SERUM 3.8 MEQ/L (3.5-5.1); SODIUM LEVEL 138 MEQ/L (136-145)
[2019-09-09] MEDS: MAGNESIUM CHLORIDE 64 MG TABCR (SLO MAG) PO SCH ×3 (08:02→21:11)
[2019-09-09] MEDS: aMILoride 5 MG TAB PO SCH ×2 (08:02→21:11)
[2019-09-09] MEDS: ENOXAPARIN 40 MG/0.4 ML SYRINGE (J1650) SC SCH ×2 (08:02→08:04)
[2019-09-09] MEDS: LACTIC ACID 12% LOTION 225 GM BTL TOP SCH (08:02)
[2019-09-09] MEDS: CLOTRIMAZOLE 1% TOPICAL CREAM 30GM TOP SCH ×2 (08:02→21:12)
[2019-09-09] MEDS: HumaLOG INSULIN (NovoLOG) PER UNIT SC SCH ×4 (08:04→21:00)
[2019-09-09] MEDS: LEVEMIR (INSULIN DETEMIR) 1 UNITS/0.01ML SC SCH (21:12)
[2019-09-10 06:00] VITALS: BP 131/74
[2019-09-10] MEDS: ENOXAPARIN 40 MG/0.4 ML SYRINGE (J1650) SC SCH (09:00)
[2019-09-10] MEDS: HumaLOG INSULIN (NovoLOG) PER UNIT SC SCH ×4 (09:08→21:00)
[2019-09-10] MEDS: MAGNESIUM CHLORIDE 64 MG TABCR (SLO MAG) PO SCH ×3 (09:09→21:41)
[2019-09-10] MEDS: LACTIC ACID 12% LOTION 225 GM BTL TOP SCH (09:09)
[2019-09-10] MEDS: aMILoride 5 MG TAB PO SCH ×2 (09:09→21:41)
[2019-09-10] MEDS: CLOTRIMAZOLE 1% TOPICAL CREAM 30GM TOP SCH ×2 (09:10→21:42)
[2019-09-10] MEDS: LEVEMIR (INSULIN DETEMIR) 1 UNITS/0.01ML SC SCH (21:41)
[2019-09-11 04:00] VITALS: BP 132/78
[2019-09-11 06:00] VITALS: BP 132/78
[2019-09-11] MEDS: MAGNESIUM CHLORIDE 64 MG TABCR (SLO MAG) PO SCH ×3 (08:24→21:43)
[2019-09-11] MEDS: aMILoride 5 MG TAB PO SCH ×2 (08:24→21:43)
[2019-09-11] MEDS: ENOXAPARIN 40 MG/0.4 ML SYRINGE (J1650) SC SCH (08:25)
[2019-09-11] MEDS: HumaLOG INSULIN (NovoLOG) PER UNIT SC SCH ×4 (08:25→21:00)
[2019-09-11] MEDS: LACTIC ACID 12% LOTION 225 GM BTL TOP SCH (08:26)
[2019-09-11] MEDS: CLOTRIMAZOLE 1% TOPICAL CREAM 30GM TOP SCH ×2 (08:26→21:44)
[2019-09-11 14:00] VITALS: BP 135/75
[2019-09-11] MEDS: LEVEMIR (INSULIN DETEMIR) 1 UNITS/0.01ML SC SCH (21:44)
[2019-09-12 06:00] VITALS: BP 141/84
[2019-09-12] MEDS: MAGNESIUM CHLORIDE 64 MG TABCR (SLO MAG) PO SCH ×3 (08:57→21:26)
[2019-09-12] MEDS: HumaLOG INSULIN (NovoLOG) PER UNIT SC SCH ×4 (08:58→21:00)
[2019-09-12] MEDS: LACTIC ACID 12% LOTION 225 GM BTL TOP SCH (08:58)
[2019-09-12] MEDS: aMILoride 5 MG TAB PO SCH ×2 (08:58→21:26)
[2019-09-12] MEDS: ENOXAPARIN 40 MG/0.4 ML SYRINGE (J1650) SC SCH (08:59)
[2019-09-12] MEDS: CLOTRIMAZOLE 1% TOPICAL CREAM 30GM TOP SCH ×2 (08:59→21:27)
[2019-09-12] MEDS: LEVEMIR (INSULIN DETEMIR) 1 UNITS/0.01ML SC SCH (21:26)
[2019-09-13 06:00] VITALS: BP 139/83
[2019-09-13] MEDS: HumaLOG INSULIN (NovoLOG) PER UNIT SC SCH ×4 (08:36→22:13)
[2019-09-13] MEDS: aMILoride 5 MG TAB PO SCH ×2 (08:37→22:12)
[2019-09-13] MEDS: MAGNESIUM CHLORIDE 64 MG TABCR (SLO MAG) PO SCH ×3 (08:37→22:12)
[2019-09-13] MEDS: CLOTRIMAZOLE 1% TOPICAL CREAM 30GM TOP SCH ×2 (08:38→22:13)
[2019-09-13] MEDS: ENOXAPARIN 40 MG/0.4 ML SYRINGE (J1650) SC SCH (08:38)
[2019-09-13] MEDS: LACTIC ACID 12% LOTION 225 GM BTL TOP SCH (08:38)
--- NOTE | 2019-09-13 21:09 | IPNPDOC ---
Date Seen The patient was seen on 09/13/19. Progress Note Subjective: 58-year-old male, past medical history of diabetes mellitus, admitted for right foot osteomyelitis status post debridement 3 by podiatry, currently with wound VAC, on oral antibiotics to complete a six-week course. Patient's hospitalization has been prolonged due to placement issues, psychiatric social worker supervisor arranging. Patient without any complaint at this time. 08/31/2019 Patient comfortable, roaming the halls on his wheelchair, without complaints, tolerating diet, awaiting placement. 09/13/19 Comfortable in wheelchair, without new complaints, awaiting removal of wound vac on Friday. 10 point review of system was negative except for above PHYSICAL EXAMINATION: VITAL SIGNS: Please see below. GENERAL: No distress HEENT: Normocephalic, atraumatic, moist mucous membranes NECK: Supple CARDIOVASCULAR EXAMINATION: S1, S2, no murmurs RESPIRATORY EXAMINATION: Clear to auscultation, no wheezing ABDOMINAL EXAMINATION: Soft, nontender, nondistended, positive bowel sounds EXTREMITIES: Right foot wound VAC in place SKIN: No rash NEUROLOGICAL EXAMINATION: Alert and oriented 3, no focal deficits PSYCHIATRIC EXAMINATION: Calm and cooperative LABORATORY DATA, IMAGING STUDIES, MICROBIOLOGY: Please see below. DVT prophylaxis ordered?: Yes ASSESSMENT AND PLAN: 58-year-old male with past medical history of diabetes, admitted for right foot wound status post surgical debridement 2. PROBLEMS: 1. Right foot infection: MRI positive for osteomyelitis, status post surgical debridement 3 by podiatry, cultures grew MSSA, status post 6 weeks of ant ibiotics, continue wound VAC until Friday, can be discharged after. 2. Diabetes mellitus: Sliding scale insulin with finger sticks before meals and at bedtime, continue Levemir 45 units daily. 3. Hypomagnesemia: Renal wasting, evaluated by nephrology, continue amiloride and oral magnesium supplementation. DVT prophylaxis: Lovenox. GI prophylaxis: Not needed VS, I&O, 24H, aZin Vital Signs/I&O Vital Signs Date Time Temp Pulse Resp B/P (MAP) Pulse Ox O2 Delivery O2 Flow Rate FiO2 09/13/19 06:00 98.9 82 17 139/83 (101) 97 Room Air I&O- Last 24 Hours up to 6 AM 09/13/19 05:59 Intake Total 1290 ml Output Total 3925 ml Balance -2635 ml Laboratory Data 24H LABS Laboratory Tests 2 09/13/19 06:10: Bedside Glucose (Misc Panel) 177H 09/13/19 11:45: Bedside Glucose (Misc Panel) 185H 09/13/19 16:27: Bedside Glucose (Misc Panel) 292H 09/13/19 20:56: Bedside Glucose (Misc Panel) 255H JUAN SALINAS MD Sep 13, 2019 21:09
[2019-09-13] MEDS: LEVEMIR (INSULIN DETEMIR) 1 UNITS/0.01ML SC SCH (22:13)
[2019-09-14 06:00] VITALS: BP 154/66
[2019-09-14] MEDS: MAGNESIUM CHLORIDE 64 MG TABCR (SLO MAG) PO SCH ×3 (07:42→22:33)
[2019-09-14] MEDS: LACTIC ACID 12% LOTION 225 GM BTL TOP SCH (07:43)
[2019-09-14] MEDS: CLOTRIMAZOLE 1% TOPICAL CREAM 30GM TOP SCH ×2 (07:43→22:34)
[2019-09-14] MEDS: aMILoride 5 MG TAB PO SCH ×2 (07:43→22:33)
[2019-09-14] MEDS: ENOXAPARIN 40 MG/0.4 ML SYRINGE (J1650) SC SCH ×2 (07:43→07:46)
[2019-09-14] MEDS: HumaLOG INSULIN (NovoLOG) PER UNIT SC SCH ×4 (07:44→22:35)
[2019-09-14] MEDS: LEVEMIR (INSULIN DETEMIR) 1 UNITS/0.01ML SC SCH (22:35)
[2019-09-15 06:00] VITALS: BP 130/74
[2019-09-15] MEDS: MAGNESIUM CHLORIDE 64 MG TABCR (SLO MAG) PO SCH ×3 (07:27→21:39)
[2019-09-15] MEDS: aMILoride 5 MG TAB PO SCH ×2 (07:28→21:38)
[2019-09-15] MEDS: CLOTRIMAZOLE 1% TOPICAL CREAM 30GM TOP SCH ×2 (07:28→21:40)
[2019-09-15] MEDS: LACTIC ACID 12% LOTION 225 GM BTL TOP SCH (07:28)
[2019-09-15] MEDS: ENOXAPARIN 40 MG/0.4 ML SYRINGE (J1650) SC SCH (07:29)
[2019-09-15] MEDS: HumaLOG INSULIN (NovoLOG) PER UNIT SC SCH ×4 (07:29→21:00)
[2019-09-15] MEDS: LEVEMIR (INSULIN DETEMIR) 1 UNITS/0.01ML SC SCH (21:39)
[2019-09-16 06:00] VITALS: BP 133/69
[2019-09-16] MEDS: CLOTRIMAZOLE 1% TOPICAL CREAM 30GM TOP SCH ×2 (08:58→20:14)
[2019-09-16] MEDS: LACTIC ACID 12% LOTION 225 GM BTL TOP SCH (08:59)
[2019-09-16] MEDS: MAGNESIUM CHLORIDE 64 MG TABCR (SLO MAG) PO SCH ×3 (08:59→20:14)
[2019-09-16] MEDS: HumaLOG INSULIN (NovoLOG) PER UNIT SC SCH ×4 (09:00→20:13)
[2019-09-16] MEDS: aMILoride 5 MG TAB PO SCH ×2 (09:00→20:14)
[2019-09-16] MEDS: ENOXAPARIN 40 MG/0.4 ML SYRINGE (J1650) SC SCH (09:00)
[2019-09-16] MEDS: LEVEMIR (INSULIN DETEMIR) 1 UNITS/0.01ML SC SCH (20:14)
[2019-09-17 06:00] VITALS: BP 130/87
[2019-09-17] MEDS: HumaLOG INSULIN (NovoLOG) PER UNIT SC SCH ×2 (08:11→12:17)
[2019-09-17] MEDS: aMILoride 5 MG TAB PO SCH (08:11)
[2019-09-17] MEDS: ENOXAPARIN 40 MG/0.4 ML SYRINGE (J1650) SC SCH (08:11)
[2019-09-17] MEDS: MAGNESIUM CHLORIDE 64 MG TABCR (SLO MAG) PO SCH (08:11)
[2019-09-17] MEDS: CLOTRIMAZOLE 1% TOPICAL CREAM 30GM TOP SCH (08:12)
[2019-09-17] MEDS: LACTIC ACID 12% LOTION 225 GM BTL TOP SCH (08:12)
[2019-09-17] MEDS ORDERED: LACH12LO TOP (10:56)
[2019-09-17] MEDS ORDERED: DOCU100C16 PO (10:56)
[2019-09-17] MEDS ORDERED: SENN18TA PO (10:56)
[2019-09-17] MEDS ORDERED: AMIL5TAB4 PO (10:56)
[2019-09-17] MEDS ORDERED: INSUDET SC (10:56)
[2019-09-17] MEDS ORDERED: CLOTR1CR TOP (10:56)
[2019-09-17] MEDS ORDERED: PERCOCET PO (10:56)
[2019-09-17] MEDS ORDERED: MAGN64TASA PO (10:56)
--- NOTE | 2019-09-17 14:07 | DS.PDOC ---
Discharge Summary General Date of Admission Jul 12, 2019 at 14:13 Date of Discharge 09/17/19 Discharge Summary PROCEDURES PERFORMED DURING STAY: Surgical debridement 3. Right foot, status post wound VAC ADMITTING DIAGNOSES: 1. Right foot cellulitis/osteomyelitis, diabetes mellitus type 1, hypomagnesemia DISCHARGE DIAGNOSES: 1. Right foot cellulitis/osteomyelitis, diabetes mellitus type 1, hypomagnesemia COMPLICATIONS/CHIEF COMPLAINT: Puncture Wound Of Right Foot. HISTORY OF PRESENT ILLNESS: Patient is 58M with PMH IDDM and congenital hearing impairment presented to the ER with complaints of R. foot wound that started 1.5 weeks ago. He initially presented to the ER for the first time 1.5 weeks prior with some erythema and pain and was given cipro PO outpatient without improvement. He came back 2nd time and was given IV abx and sent home but wound persisted and got worse. He was found to have increased swelling today beyond the R. heel he initially presented with, now generalized R. foot swelling to above ankle with erythema at the heel. He denies any other complaints apart from the discomfort in his foot after he underwent I&D that expressed purulent drainage. He was noted to have WBC 20 with elevated ESR and CRP. . HOSPITAL COURSE: . And had a prolonged stay at this hospital. Initially he was admitted with right foot cellulitis, but MRI was positive for osteomyelitis. Hence, was followed up by podiatry had subsequently 3 surgical debridement done. Cultures grew MSSA for which he received antibiotics for 6 weeks. Again, he had a wound VAC placed and secondary infection, which was just removed today Patient is clinically stable he'll be discharged home on all current medications. He will follow with podiatry and primary care physician as an outpatient in one week. Lease refer to patient's EMR and he has extensive long stay in the hospital during this visit DISCHARGE MEDICATIONS: Please see below. ALLERGIES: Please see below. PHYSICAL EXAMINATION ON DISCHARGE: VITAL SIGNS: Please see below. GENERAL: Within normal limit HEENT: PERRLA. Extraocular muscles intact NECK: Supple. Negative JVD, negative lymphadenopathy CARDIOVASCULAR EXAMINATION: S1, S2, regular RESPIRATORY EXAMINATION: Clear to A&P ABDOMINAL EXAMINATION: Benign EXTREMITIES: No clubbing, cyanosis, edema SKIN: Normal NEUROLOGICAL EXAMINATION: Focal motor sensory deficit PSYCHIATRIC EXAMINATION: Normal LABORATORY DATA: Please see below. IMAGING: Please refer to EMR. As patient has multiple imaging studies done during his stay PROGNOSIS: Good ACTIVITY: As tolerated. DIET: As tolerated DISCHARGE PLAN: Discharge home with home care DISPOSITION: 06 Home Health Service. DISCHARGE INSTRUCTIONS: 1. As per discharge instructions. ITEMS TO FOLLOWUP ON ON OUTPATIENT: 1. Follow-up with PCP as outpatient in one week. DISCHARGE CONDITION: Stable. TIME SPENT ON DISCHARGE: FB minutes. Vital Signs/I&Os Vital Signs Date Time Temp Pulse Resp B/P (MAP) Pulse Ox O2 Delivery O2 Flow Rate FiO2 09/17/19 06:00 97.2 89 18 130/87 (101) 96 Room Air I&O- Last 24 Hours up to 6 AM 09/17/19 06:00 Intake Total 3412 ml Output Total 3475 ml Balance -63 ml Laboratory Data Labs 24H Laboratory Tests 2 09/16/19 17:01: Bedside Glucose (Misc Panel) 304H 09/16/19 20:01: Bedside Glucose (Misc Panel) 288H 09/17/19 05:52: Bedside Glucose (Misc Panel) 185H 09/17/19 11:43: Bedside Glucose (Misc Panel) 237H FSBS Laboratory Tests Test 09/16/19 17:01 09/16/19 20:01 09/17/19 05:52 09/17/19 11:43 Range/Units Bedside Glucose (Misc Panel) 304 288 185 237 70-105 MG/DL Discharge Medications Scheduled Amiloride HCl (Amiloride HCl) 5 Mg Tablet, 5 MG PO BID Clotrimazole (Clotrimazole) 30 Gm Cream..g., 0 DOSE TOP BID Insulin Detemir (Levemir) 100 Unit/1 Ml Vial, 45 UNITS SC QHS Lactic Acid (Adilia-Hydrolac) 222 Ml Lotion, 0 DOSE TOP DAILY Magnesium Chloride (Mag64) 64 Mg Tablet.dr, 128 MG PO TID Scheduled PRN Docusate Sodium (Docusate Sodium) 100 Mg Capsule, 200 MG PO BIDP PRN for CONS TIPATION Oxycodone/Acetaminophen (Oxycodone-Acetaminophen 5-325) 1 Each Tablet, 1 TAB PO Q6HP PRN for severe pain Senna (Senna Lax) 8.6 Mg Tablet, 2 TAB PO DAILYPRN PRN for CONSTIPATION Allergies Coded Allergies: No Known Allergies (Unverified , 10/06/18) KVNG HER MD Sep 17, 2019 14:07
== END 2019-09-17 12:35 | disposition home health service (06) | DRG 623 ==
LOC: M ED 12:10 → EDBD 12:10 → M ED INP 14:13 → M MS4PR 16:02 → M MSPAV 07-15 17:41
PROVIDERS: ADMIT Student in an Organized Health Care Education/Training Program; ATTEND Internal Medicine
PROC: 0KBV0ZZ Excision of Right Foot Muscle, Open Approach (ICD-10-PCS; principal; 2019-07-14 16:00)
PROC: 0KBV0ZZ Excision of Right Foot Muscle, Open Approach (ICD-10-PCS; 2019-07-17)
PROC: 0Y9M3ZX Drainage of Right Foot, Percutaneous Approach, Diagnostic (ICD-10-PCS; 2019-07-21)
PROC: 02HV33Z Insertion of Infusion Device into Superior Vena Cava, Percutaneous Approach (ICD-10-PCS; 2019-07-22)
DX: E10.621 Type 1 diabetes mellitus with foot ulcer (principal); L03.115 Cellulitis of right lower limb; L02.611 Cutaneous abscess of right foot; M86.10 Other acute osteomyelitis, unspecified site; E10.52 Type 1 diabetes mellitus with diabetic peripheral angiopathy with gangrene; E83.42 Hypomagnesemia; B35.3 Tinea pedis; B95.61 Methicillin susceptible Staphylococcus aureus infection as the cause of diseases classified elsewhere; Z79.4 Long term (current) use of insulin; Z79.899 Other long term (current) drug therapy; F17.200 Nicotine dependence, unspecified, uncomplicated; L97.519 Non-pressure chronic ulcer of other part of right foot with unspecified severity

== ENCOUNTER 2019-10-15 16:25 | Emergency (ER) | payer MEDICARE, MEDICAID ==
[~2019-10-15] VITALS: Ht 182.9 cm; Wt 102.3 kg
[~2019-10-15 16:25] MED LIST changes: +AMIL5TAB4 PO; +CIPR500T3 PO; +CLOTR1CR TOP; +DOCU100C16 PO; +INSUDET SC; +LACH12LO TOP; +LEVE1INJ5 SC; +MAGN64TASA PO; +METF-791 PO; +NOVOINJ3 SC; +PERCOCET PO; +SENN18TA PO
[2019-10-15 17:43] LABS: HEMATOCRIT 41.8 % (42.0-52.0); HEMOGLOBIN 13.6 g/dl (13.5-17.5); MEAN CORPUSCULAR HEMOGLOBIN 28.8 pg (27.0-33.0); MEAN CORPUSCULAR HGB CONC 32.5 g/dl (32.0-36.5); MEAN CORPUSCULAR VOLUME 88.6 fl (80.0-96.0); PLATELET COUNT, AUTOMATED 184 10^3/uL (150-450); RED BLOOD COUNT 4.72 10^6/uL (4.30-6.10); VENOUS BASE EXCESS 4.6 (-2.0-2.0); VENOUS HCO3 30.2 MEQ/L (23.0-27.0); VENOUS O2 SATURATION 89.4 % (60.0-80.0); VENOUS PARTIAL PRESSURE CO2 48.5 mmHg (38.0-50.0); VENOUS PARTIAL PRESSURE O2 52.9 mmHg (30.0-50.0); VENOUS PH 7.412 UNITS (7.330-7.430); VENOUS STANDARD HCO3 28.4 MEQ/L; VENOUS TOTAL CO2 31.7 MEQ/L (24.0-28.0); WHITE BLOOD COUNT 10.6 10^3/uL (4.0-10.0)
[2019-10-15 18:15] LABS: ALBUMIN 3.7 GM/DL (3.2-5.2); ALT/SGPT 14 U/L (12-78); BILIRUBIN,TOTAL 0.3 MG/DL (0.2-1.0); BLOOD UREA NITROGEN 18 MG/DL (7-18); C REACTIVE PROTEIN QUANTITATIV 2.53 MG/DL (0.00-0.30); CALCIUM LEVEL 8.7 MG/DL (8.5-10.1); CARBON DIOXIDE LEVEL 32 MEQ/L (21-32); CHLORIDE LEVEL 102 MEQ/L (98-107); CREATININE FOR GFR 1.01 MG/DL (0.70-1.30); GLOMERULAR FILTRATION RATE > 60.0 (>56); GLUCOSE, FASTING 147 MG/DL (70-100); POTASSIUM SERUM 3.7 MEQ/L (3.5-5.1); SODIUM LEVEL 139 MEQ/L (136-145); TOTAL PROTEIN 6.9 GM/DL (6.4-8.2)
[2019-10-15 18:23] LABS: ERYTHROCYTE SEDIMENTATION RATE 15 mm/hr (0-20)
[2019-10-15] MEDS ORDERED: CEPHALEXIN 500 MG CAP PO ONE (18:30)
--- NOTE | 2019-10-15 18:37 | REP ---
LEFT FOOT COMPLETE: 10/15/2019. Clinical history: Toe blisters. Findings: The four standard views are provided. There is a tiny plantar calcaneal spur without an Achilles insertional spur calcaneus, subtalar joints, talonavicular, calcaneocuboid articulations normal. Tarsal bones and articulations are intact. Metatarsals show no fracture, focal lesion. There is mild degenerative change at the first MTP joint. The other is intact. IP joint shows slight narrowing. There is no erosion, avulsion or fracture of the phalanges on acute basis. A small spur off the medial and plantar aspect of the middle phalanx at the PIP joint of the fifth toe. This is not a avulsed. No subcutaneous emphysema. Impression: 1. Some minor degenerative changes at the first MTP joint and a spur from the middle phalanx of the fifth toe but no fracture, avulsion, radiopaque foreign body or subcutaneous emphysema about the toes. No destructive lesion. Electronically Signed by Elia Feng MD 10/15/2019 08:52 P
[2019-10-15] MEDS ORDERED: KEFL500C17 PO (19:10)
[2019-10-15] MEDS ORDERED: test strips (19:15)
[2019-10-15 19:52] VITALS: BP 148/79
== END 2019-10-15 19:54 | disposition home or self-care (01) ==
LOC: M ED 16:25
DX: T69.022A Immersion foot, left foot, initial encounter (principal); M19.072 Primary osteoarthritis, left ankle and foot; M77.32 Calcaneal spur, left foot; E10.9 Type 1 diabetes mellitus without complications; Z79.4 Long term (current) use of insulin; Z79.899 Other long term (current) drug therapy

== ENCOUNTER → 2019-10-27 | Outpatient (REF) | payer MEDICARE, MEDICAID ==
[~2019-10-27] MED LIST changes: +test strips
[2019-10-27 17:35] LABS: BASO % 0.4 % (0.0-1.0); EOS # 0.2 10^3/uL (0.0-0.5); EOS % 1.7 % (0.0-3.0); HEMATOCRIT 43.6 % (42.0-52.0); HEMOGLOBIN 14.3 g/dl (13.5-17.5); LYMPH # 2.5 10^3/uL (1.5-5.0); LYMPH % 22.7 % (24.0-44.0); MEAN CORPUSCULAR HEMOGLOBIN 28.8 pg (27.0-33.0); MEAN CORPUSCULAR HGB CONC 32.8 g/dl (32.0-36.5); MEAN CORPUSCULAR VOLUME 87.7 fl (80.0-96.0); MONO # 0.6 10^3/uL (0.0-0.8); MONO % 5.5 % (0.0-5.0); NEUTROPHILS # 7.6 10^3/uL (1.5-8.5); NEUTROPHILS % 69.4 % (36.0-66.0); PLATELET COUNT, AUTOMATED 233 10^3/uL (150-450); RED BLOOD COUNT 4.97 10^6/uL (4.30-6.10); WHITE BLOOD COUNT 10.9 10^3/uL (4.0-10.0)
[2019-10-27 18:11] LABS: ALBUMIN 3.7 GM/DL (3.2-5.2); ALT/SGPT 17 U/L (12-78); BILIRUBIN,TOTAL 0.3 MG/DL (0.2-1.0); BLOOD UREA NITROGEN 13 MG/DL (7-18); CALCIUM LEVEL 8.8 MG/DL (8.5-10.1); CARBON DIOXIDE LEVEL 32 MEQ/L (21-32); CHLORIDE LEVEL 103 MEQ/L (98-107); CHOLESTEROL LEVEL 145 MG/DL (<200); CHOLESTEROL RISK RATIO 3.625 (<5); CREATININE FOR GFR 0.88 MG/DL (0.70-1.30); GLOMERULAR FILTRATION RATE > 60.0 (>56); GLUCOSE, FASTING 177 MG/DL (70-100); HDL CHOLESTEROL 40 MG/DL (>40); LDL CHOLESTEROL 73 MG/DL (<100); NON-HDL-C 105 MG/DL; POTASSIUM SERUM 4.3 MEQ/L (3.5-5.1); SODIUM LEVEL 139 MEQ/L (136-145); THYROID STIMULATING HORMONE 0.164 uIU/ML (0.358-3.740); TOTAL PROTEIN 7.3 GM/DL (6.4-8.2); TRIGLYCERIDES LEVEL 161 MG/DL (<150)
== END ==
LOC: M SHH 16:54
PROVIDERS: ATTEND Family Medicine Addiction Medicine
DX: E11.9 Type 2 diabetes mellitus without complications (principal)

== ENCOUNTER 2019-12-07 18:25 | Emergency (ER) | payer MEDICARE, MEDICAID ==
[~2019-12-07] VITALS: Ht 182.9 cm; Wt 109.2 kg
[2019-12-07 19:45] VITALS: BP 145/78
== END 2019-12-07 19:46 | disposition home or self-care (01) ==
LOC: M ED 18:25
DX: Z76.0 Encounter for issue of repeat prescription (principal); I11.9 Hypertensive heart disease without heart failure; E11.9 Type 2 diabetes mellitus without complications; F17.210 Nicotine dependence, cigarettes, uncomplicated; Z79.4 Long term (current) use of insulin; Z79.899 Other long term (current) drug therapy

== ENCOUNTER 2020-02-09 20:43 | Emergency (ER) | payer MEDICARE, MEDICAID ==
[~2020-02-09 20:43] MED LIST changes: -METF-791 PO; +METF-838 PO
[2020-02-09] MEDS ORDERED: NS 1,000 ML IV ONE (21:15)
[2020-02-09 22:09] LABS: ALBUMIN 3.5 GM/DL (3.2-5.2); ALT/SGPT 17 U/L (12-78); BILIRUBIN,DIRECT 0.1 MG/DL (0.0-0.2); BILIRUBIN,TOTAL 0.5 MG/DL (0.2-1.0); BLOOD UREA NITROGEN 18 MG/DL (7-18); CALCIUM LEVEL 8.2 MG/DL (8.5-10.1); CARBON DIOXIDE LEVEL 32 MEQ/L (21-32); CHLORIDE LEVEL 99 MEQ/L (98-107); CK-MB VALUE MASS 2.3 NG/ML (<3.6); CPK CREATINE PHOSPHOKINASE 179 U/L (39-308); CREATININE FOR GFR 1.05 MG/DL (0.70-1.30); GLOMERULAR FILTRATION RATE > 60.0 (>56); GLUCOSE, FASTING 228 MG/DL (70-100); LIPASE 87 U/L (73-393); MB/CK RELATIVE INDEX 1.28 (< OR =4); POTASSIUM SERUM 3.5 MEQ/L (3.5-5.1); SODIUM LEVEL 138 MEQ/L (136-145); TOTAL PROTEIN 6.8 GM/DL (6.4-8.2); TROPONIN I < 0.02 NG/ML (< 0.10)
[2020-02-09 22:10] LABS: BASO % 0.4 % (0.0-1.0); EOS # 0.2 10^3/uL (0.0-0.5); EOS % 1.7 % (0.0-3.0); HEMATOCRIT 40.4 % (42.0-52.0); HEMOGLOBIN 13.6 g/dl (13.5-17.5); LYMPH # 2.9 10^3/uL (1.5-5.0); LYMPH % 30.3 % (24.0-44.0); MEAN CORPUSCULAR HEMOGLOBIN 28.5 pg (27.0-33.0); MEAN CORPUSCULAR HGB CONC 33.7 g/dl (32.0-36.5); MEAN CORPUSCULAR VOLUME 84.7 fl (80.0-96.0); MONO # 0.6 10^3/uL (0.0-0.8); NEUTROPHILS # 5.9 10^3/uL (1.5-8.5); NEUTROPHILS % 61.3 % (36.0-66.0); PLATELET COUNT, AUTOMATED 159 10^3/uL (150-450); RED BLOOD COUNT 4.77 10^6/uL (4.30-6.10); WHITE BLOOD COUNT 9.6 10^3/uL (4.0-10.0)
[2020-02-09 22:45] VITALS: BP 141/83
--- NOTE | 2020-02-10 05:44 | ECGEPIP ---
[facility] - ED Test Date: 2020-02-09 Pat Name: LUCIA MCNAIR Department: Room: - Gender: Male Claim Investigator: alea : 1960 Requested By: [address] Order Number: [id number] Reading MD: Wolf Knox Measurements Intervals [place] Rate: 90 P: 60 CO: 213 QRS: 49 QRSD: 95 T: 58 QT: 343 QTc: 420 Interpretive Statements SINUS RHYTHM WITH FIRST DEGREE AV BLOCK WITH OCCASIONAL VENTRICULAR PREMATURE COMPLEXES POSSIBLE LEFT ATRIAL ENLARGEMENT POOR R WAVE PROGRESSION SIMILAR TO 10/06/18 Electronically Signed on 02-10-2020 5:43:53 EDT by Wolf Knox
== END 2020-02-09 23:08 | disposition home or self-care (01) ==
LOC: M ED 20:43
DX: E11.65 Type 2 diabetes mellitus with hyperglycemia (principal); Z87.39 Personal history of other diseases of the musculoskeletal system and connective tissue; Z87.891 Personal history of nicotine dependence; Z98.890 Other specified postprocedural states; Z79.4 Long term (current) use of insulin; Z79.899 Other long term (current) drug therapy

== ENCOUNTER → 2020-05-06 | Emergency (ER) | payer MEDICARE, MEDICAID ==
[2020-06-19 12:20] LABS: APPEARANCE, URINE MANUAL CLEAR (CLEAR); BILIRUBIN, URINE MANUAL NEGATIVE (NEGATIVE); BLOOD URINE MANUAL NEGATIVE (NEGATIVE); COLOR, URINE MANUAL YELLOW (YELLOW); GLUCOSE, URINE (UA) MANUAL NEGATIVE (NEGATIVE); KETONE, URINE MANUAL NEGATIVE (NEGATIVE); LEUKOCYTE ESTERASE, URINE MAN TRACE (NEGATIVE); NITRITE, URINE MANUAL POSITIVE (NEGATIVE); PROTEIN, URINE MANUAL TRACE mg/dL (NEGATIVE); UROBILINOGEN, URINE MANUAL NORMAL (NORMAL)
[2020-06-19 12:21] LABS: BACTERIA, URINE MOD AMOUNT; HYALINE CAST, URINE NONE SEEN /lpf (0-1); RBC, URINE NONE SEEN /hpf (0-3); SQUAMOUS EPITHELIAL CELL URINE NONE SEEN /hpf (SMALL AMT); WBC, URINE 0-1 /hpf (0-3)
[2020-06-19 14:55] LABS: HEMATOCRIT 47.6 % (42.0-52.0); HEMOGLOBIN 16.2 g/dl (13.5-17.5); MEAN CORPUSCULAR HEMOGLOBIN 30.1 pg (27.0-33.0); MEAN CORPUSCULAR VOLUME 88.3 fl (80.0-96.0); PLATELET COUNT, AUTOMATED 220 10^3/uL (150-450); RED BLOOD COUNT 5.39 10^6/uL (4.30-6.10); WHITE BLOOD COUNT 9.4 10^3/uL (4.0-10.0)
== END | disposition home or self-care (01) ==
LOC: M ED 15:41
DX: E86.0 Dehydration (principal); B35.4 Tinea corporis; I51.9 Heart disease, unspecified; E11.9 Type 2 diabetes mellitus without complications; F17.210 Nicotine dependence, cigarettes, uncomplicated; Z79.899 Other long term (current) drug therapy
CPT/HCPCS: 80053; 81000; 85027; 96360; 99283; G0480

== ENCOUNTER 2020-06-06 02:25 | Emergency (ER) | payer MEDICARE, MEDICAID ==
[~2020-06-06] VITALS: Ht 182.9 cm; Wt 98.6 kg
[2020-06-06] MEDS ORDERED: BOOSTRIX/ADACEL VACCINE (DIPHTH/PERTUSS/ACELL/TETANUS) 0.5ML SYR IM ONE (02:45)
--- NOTE | 2020-06-06 03:08 | REPVR ---
PROCEDURE INFORMATION: Exam: CT Cervical Spine Without Contrast Exam date and time: 06/06/2020 2:55 AM Age: 59 years old Clinical indication: Injury or trauma; Fall; Initial encounter; Blunt trauma TECHNIQUE: Imaging protocol: Computed tomography images of the cervical spine without contrast. Radiation optimization: All CT scans at this facility use at least one of these dose optimization techniques: automated exposure control; mA and/or kV adjustment per patient size (includes targeted exams where dose is matched to clinical indication); or iterative reconstruction. COMPARISON: No relevant prior studies available. FINDINGS: Vertebrae: There is no acute fracture. There is fusion of the C5 through C7 vertebra.There is straightening of the normal cervical lordosis. Discs/Spinal canal/Neural foramina: Severe degenerative changes of the cervical spine are present. There is moderate/severe spinal canal stenosis at C5-C6 and C6-C7. Multilevel neural foraminal narrowing from uncinate spurring and facet arthropathy is noted. Soft tissues: Unremarkable. Lungs: Lung apices are normal. IMPRESSION: 1. No acute abnormality. 2. Chronic findings as discussed above. Electronically signed by: Zion Loera On 06/06/2020 03:08:27 AM
--- NOTE | 2020-06-06 03:20 | REPVR ---
PROCEDURE INFORMATION: Exam: CT Head Without Contrast Exam date and time: 06/06/2020 2:55 AM Age: 59 years old Clinical indication: Injury or trauma; Fall; Initial encounter; Blunt trauma (contusions or hematomas) TECHNIQUE: Imaging protocol: Computed tomography of the head without contrast. Radiation optimization: All CT scans at this facility use at least one of these dose optimization techniques: automated exposure control; mA and/or kV adjustment per patient size (includes targeted exams where dose is matched to clinical indication); or iterative reconstruction. COMPARISON: CT IAC W/O CONTRAST 01/08/2019 2:07 PM FINDINGS: Brain: There is no acute intracranial hemorrhage, cerebral edema, or midline shift. Mild chronic microvascular ischemic changes are seen in the periventricular white matter. Mild cerebral and cerebellar volume loss is present. Ventricles: No hydrocephalus. Bones/joints: No acute fracture. Paranasal sinuses: There is no acute sinusitis. Mastoid air cells: Postoperative changes are seen involving the left mastoid. Orbits: The included orbital structures are unremarkable. Soft tissues: Unremarkable. IMPRESSION: 1. No acute intracranial abnormality. 2. Chronic findings as discussed above. Electronically signed by: Zion Loera On 06/06/2020 03:19:53 AM
[2020-06-06 04:13] VITALS: BP 153/83
== END 2020-06-06 04:14 | disposition home or self-care (01) ==
LOC: M ED 02:25
DX: S01.01XA Laceration without foreign body of scalp, initial encounter (principal); Y00.XXXA Assault by blunt object, initial encounter; Y92.9 Unspecified place or not applicable; Y93.9 Activity, unspecified; Y99.9 Unspecified external cause status; F17.200 Nicotine dependence, unspecified, uncomplicated; Z79.4 Long term (current) use of insulin

== ENCOUNTER 2020-06-15 20:30 | Emergency (ER) | payer MEDICARE, MEDICAID ==
[~2020-06-15] VITALS: Ht 182.9 cm; Wt 100.2 kg
[2020-06-15 20:31] VITALS: BP 128/72
== END 2020-06-15 22:58 | disposition home or self-care (01) ==
LOC: M ED 20:30
DX: Z48.02 Encounter for removal of sutures (principal); E11.9 Type 2 diabetes mellitus without complications; F17.200 Nicotine dependence, unspecified, uncomplicated; Z79.4 Long term (current) use of insulin

== ENCOUNTER 2020-11-13 18:28 | Inpatient (IN) | payer MEDICARE, MEDICAID ==
[~2020-11-13] VITALS: Ht 182.9 cm; Wt 99.7 kg
--- OUTSIDE RECORDS SUMMARY | 2020-11-13 18:33 | CCD | Continuity of Care Document ---
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 Monico Saxena DPM Onset: 10/12/2019 Onychomycosis Aman Saxena DPM Onset: 10/12/2019 Type 1 diabetes mellitus with diabetic polyneuropathy Aman Saxena DPM Onset: 10/24/2019 Pressure ulcer of right foot stage 2 Aman Saxena DPM On set: 10/18/2020 Social History Type Date Description Comments Sex Unknown ETOH Use Denies alcohol use Tobacco Use Start: Unknown Patient is a current smoker, smo kes every day Allergies, Adverse Reactions, Alerts Description No Known Drug Allergies Medications Active Medications SIG Qnty Indications Ordering Provide r Date Metformin HCL 1000mg Tablets Dori Medina RPA Metformin HCL ER 500mg Tablets ER 24HR Take Two Tablets By Mouth Twice A Day Unknown Onetouch Verio Flex Blood Glucose Monito ring System w/Device Kit Use as Directed Unknown Novolog Flexpen 100U nit/ML Solution Pen-Inject Inject 2 Units For Sugars 100 150 Then Per MD Instruct ions On Sliding Scale Unknown Onetouch Ultra 2 w/Device Kit Use as Directed Unknown Onetouch Ultra Blue Strips Test Four Times A Day Unknown Onetouch Delica Lancets Extra Fine 33G Misc Use as Directed Unknown Fluticasone Propionate 50mcg/Act Suspension Instill Two Sprays In Each Nostril AT Night Unknown Ciprofloxacin HCL 500mg Tablets Take One Tablet By Mouth Twice A Day Unknown Stool Softener 100mg Capsules Take Two Capsules By Mouth Twice A Day as Needed For Constipation Unknown Senna 8.6mg Tablets Take Two Tablets By Mouth Every Day as Needed For Constipation Unkno wn Oxycodone-Acetaminophen 5-325mg Tablets Rene Coker MD Mag64 64mg Tablets DR Take Two Tablets By Mouth Three Times A Day Unknown Levemir 100Unit/ML Solution Rene Coker MD Clotrimazole 1% Cream Apply Topically Two Times A Day Unknown Amiloride HCL 5mg Tablets Rene Coker MD Unifine Pentips Plus 31G X 5 mm Misc KATERINA Riggins Robin SM Alcohol Prep 70% Pads KATERINA Riggins Robin Levemir Flextouch 10 0Unit/ML Solution Pen-Inject KATERINA Riggins Robin 0 Immunizations Description No Information Available Vital Signs Date Vital Result Comment 01/05/2019 8:02am Height 72 inches 6'0" Weight 229.00 lb BP Systolic 132 mmHg BP Diastolic 83 mmHg Heart Rate 104 /min BMI (Body Mass Index) 31.1 kg/m2 Results Description No Information Available Procedures Date Code Description Status 10/10/2020 55081 Debridement 6-10 Nails Electric Completed 10/10/2020 04159 Paring/Cut Benign Lesion 2 To 4 Completed 10/10/2020 41978 Debridement Skin/Tissue Complete d 07/10/2020 95373 Debridement 6-10 Nails Electric Completed 07/10/2020 47500 Paring/Cut Benign Lesion 2 To 4 Completed 05/01/2020 61037 Debridement 6-10 Nails Electric Completed 05/01/2020 25306 Paring/Cut Benign Lesion 2 To 4 Completed Medical Devices Description No Information Available Encounters Description No Information Available Assessments Date Code Description Provider 10/10/2020 E10.621 Type 1 diabetes mellitus with fo ot ulcer Aman Saxena, ALAN 10/10/2020 L89.892 Pressure ulcer of other site, st age 2 Aman Saxena, DPM 10/10/2020 B35.1 Tinea unguium Aman Saxena, DPM 10/10/2020 E10.42 Type 1 diabetes mellitus with di abetic polyneuropathy Aman Saexna, DPM 10/10/2020 L84 Corns and callosities Aman Saxena, DPM 07/10/2020 B35.1 Tinea unguium Aman Saxena, DPM 07/10/2020 E10.42 Type 1 diabetes mellitus with di abetic polyneuropathy Aman Saxena, DPM 07/10/2020 L84 Corns and callosities Aman Saxena, DPM 05/01/2020 B35.1 Tinea unguium Aman Saxena, DPM 05/01/2020 E10.42 Type 1 diabetes mellitus with di abetic polyneuropathy Aman Saxena, ALAN 05/01/2020 L84 Corns and callosities Aman Saxena DPM Plan of Treatment Future Appointment(s):* 10/24/2020 11:00 am - Aman Saxena DPM at [facility] Functional Status Description No Information Available Mental Status Description No Information Available Referrals Description No Information Available
--- OUTSIDE RECORDS SUMMARY | 2020-11-13 18:33 | CCD | Continuity of Care Document ---
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 Monico Saxena DPM Onset: 10/12/2019 Onychomycosis Aman Saxena DPM Onset: 10/12/2019 Type 1 diabetes mellitus with diabetic polyneuropathy Aman Saxena DPM Onset: 10/24/2019 Social History Type Date Description Comments Sex [...] By Mouth Three Times A Day Unknown 00 Levemir 100Unit/ML Solution Rene Coker MD Clotrimazole [...] Information Available Procedures Date Code Description Status 07/10/2020 50733 Debridement 6-10 Nails Electric Completed 07/10/2020 47068 Paring/Cut Benign Lesion 2 To 4 Completed 05/01/2020 95114 Debridement 6-10 Nails Electric Completed 05/01/2020 04977 Paring/Cut Benign Lesion 2 To 4 Completed Medical Devices Description No Information Available Encounters Description No Information Available Assessments Date Code Description Provider 07/10/2020 B35.1 Tinea unguium Aman Saxena DPM 07/10/2020 E10.42 Type 1 diabetes mellitus with di abetic polyneuropathy Aman Saxena DPM 07/10/2020 L84 Corns and callosities Aman Saxena DPM 05/01/2020 B35.1 Tinea unguium Aman Saxena DPM 05/01/2020 E10.42 Type 1 diabetes mellitus with di abetic polyneuropathy Aman Saxena DPM 05/01/2020 L84 Corns and callosities Aman Saxena DPM Plan of Treatment Future Appointment(s):* 10/24/2020 11:00 am - Aman Saxena DPM at [facility] Functional Status Description No Information Available Mental Status Description No Information Available Referrals Description No Information Available
--- OUTSIDE RECORDS SUMMARY | 2020-11-13 18:33 | CCD ---
Author Author [facility] Organization [facility] Address Unknown Phone Unavailable Care Team Providers Care Independent Jeweler Name Role Phone Cady SAXENA DPM Unavailable Unavailable Cady SAXENA DPM Unavailable Unavailable Cady SAXENA DPM Unavailable Unavailable Cady SAXENA DPM Unavailable Unavailable Cady SAXENA DPM Unavailable Unavailable Cady SAXENA DPM Unavailable Unavailable Cady SAXENA DPM Unavailable Unavailable Cady SAXENA DPM Unavailable Unavailable Cady SAXENA DPM Unavailable Unavailable Cady SAXENA DPM Unavailable Unavailable Cady SAXENA DPM Unavailable Unavailable Cady SAXENA DPM Unavailable Unavailable Cady SAXENA DPM Unavailable Unavailable Cady SAXENA DPM Unavailable Unavailable Cady SAXENA DPM Unavailable Unavailable Cady SAXENA DPM Unavailable Unavailable Cady SAXENAW DPM Unavailable Unavailable Cady SAXENAW DPM Unavailable Unavailable Cady SAXENA DPM Unavailable Unavailable Cady SAXENA DPM Unavailable Unavailable Cady SAXENA DPM Unavailable Unavailable Cady SAXENA DPM Unavailable Unavailable Cady SAXENA DPM Unavailable Unavailable Cady SAXENAW DPM Unavailable Unavailable Cady SAXENAW DPM Unavailable Unavailable Cady SAXENA DPM Unavailable Unavailable Cady SAXENA DPM Unavailable Unavailable Cady SAXENAW DPM Unavailable Unavailable Cady SAXENAW DPM Unavailable Unavailable Cady SAXENA DPM Unavailable Unavailable Prema Ansari MD Unavailable Unavailable Prema Ansari MD Unavailable Unavailable Prema Ansari MD Unavailable Unavailable Prema Ansari MD Unavailable Unavailable Prema Ansari MD Unavailable Unavailable Prema Ansari MD Unavailable Unavailable Prema Ansari MD Unavailable Unavailable Prema Ansari MD Unavailable Unavailable Prema Ansari MD Unavailable Unavailable Prmea Ansari MD Unavailable Unavailable Prema Ansari MD Unavailable Unavailable Prema Ansari MD Unavailable Unavailable Prema Ansari MD Unavailable Unavailable Prema Ansari MD Unavailable Unavailable Prema Ansari MD Unavailable Unavailable Prema Ansari MD Unavailable Unavailable Prema Ansari MD Unavailable Unavailable Prema Ansari MD Unavailable Unavailable Prema Ansari MD Unavailable Unavailable Prmea Ansari MD Unavailable Unavailable Prema Ansari MD Unavailable Unavailable Prema Ansari MD Unavailable Unavailable Prema Ansari MD Unavailable Unavailable Prema Ansari MD Unavailable Unavailable Prema Ansari MD Unavailable Unavailable Prema Ansari MD Unavailable Unavailable Prema Ansari MD Unavailable Unavailable Prema Ansari MD Unavailable Unavailable Prema Ansari MD Unavailable Unavailable Prema Ansari MD Unavailable Unavailable Prema Ansari MD Unavailable Unavailable Prema Ansari MD Unavailable Unavailable Prema Ansari MD Unavailable Unavailable Prema Ansari MD Unavailable Unavailable Prema Ansari MD Unavailable Unavailable Prema Ansari MD Unavailable Unavailable Prema Ansari MD Unavailable Unavailable Prema Ansari MD Unavailable Unavailable Prema Ansari MD Unavailable Unavailable Prema Ansari MD Unavailable Unavailable Prema Ansari MD Unavailable Unavailable Prema Ansari MD Unavailable Unavailable Prema Ansari MD Unavailable Unavailable Prema Ansari MD Unavailable Unavailable Prema Ansari MD Unavailable Unavailable Prema Ansari MD Unavailable Unavailable Prema Ansari MD Unavailable Unavailable Prema Ansari MD Unavailable Unavailable Prema Ansari MD Unavailable Unavailable Prema Ansari MD Unavailable Unavailable Prema Ansari MD Unavailable Unavailable Prema Ansari MD Unavailable Unavailable Prema Ansari MD Unavailable Unavailable Prema Ansari MD Unavailable Unavailable Prema Ansari MD Unavailable Unavailable Prema Ansari MD Unavailable Unavailable Prema Ansari MD Unavailable Unavailable Prema Ansari MD Unavailable Unavailable Prema Ansari MD Unavailable Unavailable Prema Ansari MD Unavailable Unavailable Prema Ansari MD Unavailable Unavailable Prema Ansari MD Unavailable Unavailable Prema Ansari MD Unavailable Unavailable Prema Ansari MD Unavailable Unavailable Prema Ansari MD Unavailable Unavailable Prema Ansari MD Unavailable Unavailable Prema Ansari MD Unavailable Unavailable Prema Ansari MD Unavailable Unavailable Prema Ansari MD Unavailable Unavailable Prema Ansari MD Unavailable Unavailable Prema Ansari MD Unavailable Unavailable Prema Ansari MD Unavailable Unavailable Prema Ansari MD Unavailable Unavailable Prema Ansari MD Unavailable Unavailable Prema Ansari MD Unavailable Unavailable Prema Ansari MD Unavailable Unavailable Prema Ansari MD Unavailable Unavailable Prema Ansari MD Unavailable Unavailable Prema Ansari MD Unavailable Unavailable Prema Ansari MD Unavailable Unavailable Prema Ansari MD Unavailable Unavailable Prema Ansari MD Unavailable Unavailable Prema Ansari MD Unavailable Unavailable Prema Ansari MD Unavailable Unavailable Prema Ansari MD Unavailable Unavailable Prema Ansari MD Unavailable Unavailable Prema Ansari MD Unavailable Unavailable Prema Ansari MD Unavailable Unavailable Prema Ansari MD Unavailable Unavailable Lo AWAD MD Unavailable Unavailable Lo AWAD MD Unavailable Unavailable Lo AWAD MD Unavailable Unavailable Lo AWAD MD Unavailable Unavailable Lo AWAD MD Unavailable Unavailable Lo AWAD MD Unavailable Unavailable Lo AWAD MD Unavailable Unavailable Lo AWAD MD Unavailable Unavailable Lo AWAD MD Unavailable Unavailable Lo AWAD MD Unavailable Unavailable Lo AWAD MD Unavailable Unavailable Lo AWAD MD Unavailable Unavailable Lo AWAD MD Unavailable Unavailable Lo AWAD MD Unavailable Unavailable Lo AWAD MD Unavailable Unavailable Lo AWAD MD Unavailable Unavailable Lo AWAD MD Unavailable Unavailable Lo AWAD MD Unavailable Unavailable Lo AWAD MD Unavailable Unavailable Lo AWAD MD Unavailable Unavailable Lo AWAD MD Unavailable Unavailable Lo AWAD MD Unavailable Unavailable Lo AWAD MD Unavailable Unavailable Lo AWAD MD Unavailable Unavailable Lo AWAD MD Unavailable Unavailable Lo AWAD MD Unavailable Unavailable Lo AWAD MD Unavailable Unavailable Lo AWAD MD Unavailable Unavailable Lo AWAD MD Unavailable Unavailable Lo AWAD MD Unavailable Unavailable Lo AWAD MD Unavailable Unavailable Lo AWAD MD Unavailable Unavailable Lo AWAD MD Unavailable Unavailable Lo AWAD MD Unavailable Unavailable Lo AWAD MD Unavailable Unavailable Lo AWAD MD Unavailable Unavailable Lo AWAD MD Unavailable Unavailable Lo AWAD MD Unavailable Unavailable Lo AWAD MD Unavailable Unavailable Lo AWAD MD Unavailable Unavailable Lo AWAD MD Unavailable Unavailable Lo AWAD MD Unavailable Unavailable Lo AWAD MD Unavailable Unavailable Lo AWAD MD Unavailable Unavailable Lo AWAD MD Unavailable Unavailable Lo AWAD MD Unavailable Unavailable Lo AWAD MD Unavailable Unavailable Lo AWAD MD Unavailable Unavailable DELMI, Lo BARRETT MD Unavailable Unavailable DELMI, Lo BARRETT MD Unavailable Unavailable DELMI, T NENA ACOSTA Unavailable Unavailable DELMI, T NENA ACOSTA Unavailable Unavailable DELMI, T NENA ACOSTA Unavailable Unavailable DELMI, T NENA ACOSTA Unavailable Unavailable DELMI, Lo BARRETT MD Unavailable Unavailable DELMI, Lo BARRETT MD Unavailable Unavailable DELMI, T NENA ACOSTA Unavailable Unavailable DELMI, T NENA ACOSTA Unavailable Unavailable DELMI, T NENA ACOSTA Unavailable Unavailable DELMI, T NENA ACOSTA Unavailable Unavailable DELMI, T NENA ACOSTA Unavailable Unavailable DELMI, T NENA ACOSTA Unavailable Unavailable DELMI, T NENA ACOSTA Unavailable Unavailable DELMI, T NENA ACOSTA Unavailable Unavailable DELMI, T NENA ACOSTA Unavailable Unavailable DELMI, T NENA ACOSTA Unavailable Unavailable DELMI, T NENA ACOSTA Unavailable Unavailable DELMI, T NENA ACOSTA Unavailable Unavailable DELMI, T NENA ACOSTA Unavailable Unavailable DELMI, T NENA ACOSTA Unavailable Unavailable DELMI, T NENA ACOSTA Unavailable Unavailable DELMI, T NENA ACOSTA Unavailable Unavailable DELMI, T NENA ACOSTA Unavailable Unavailable DELMI, T NENA ACOSTA Unavailable Unavailable DELMI, T NENA ACOSTA Unavailable Unavailable DELMI, T NENA ACOSTA Unavailable Unavailable DELMI, T NENA ACOSTA Unavailable Unavailable DELMI, T NENA ACOSTA Unavailable Unavailable DELMI, T NENA ACOSTA Unavailable Unavailable DELMI, T NENA ACOSTA Unavailable Unavailable DELMI, T NENA ACOSTA Unavailable Unavailable DELMI, T NENA ACOSTA Unavailable Unavailable DELMI, T NENA ACOSTA Unavailable Unavailable Re-disclosure Warning The records that you are about to access may contain information from federally-assisted alcohol or drug abuse programs. If such information is present, then the following federally mandated warning applies: This information has been disclosed to you from records protected by federal confidentiality rules (42 CFR part 2). The federal rules prohibit you from making any further disclosure of this information unless further disclosure is expressly permitted by the written consent of the person to whom it pertains or as otherwise permitted by 42 CFR part 2. A general authorization for the release of medical or other information is NOT sufficient for this purpose. The Federal rules restrict any use of the information to criminally investigate or prosecute any alcohol or drug abuse patient.The records that you are about to access may contain highly sensitive health information, the redisclosure of which is protected by Article 27-F of the [place] State Public Health law. If you continue you may have access to information: Regarding HIV / AIDS; Provided by facilities licensed or operated by the [facility] Office of Mental Health; or Provided by the [facility] Office for People With Developmental Disabilities. If such information is present, then the following [facility] mandated warning applies: This information has been disclosed to you from confidential records which are protected by state law. State law prohibits you from making any further disclosure of this information without the specific written consent of the person to whom it pertains, or as otherwise permitted by law. Any unauthorized further disclosure in violation of state law may result in a fine or nursing home sentence or both. A general authorization for the release of medical or other information is NOT sufficient authorization for further disc losure. Family History Family Member Name Family Member Gender Family Member Status Date o f Status Description Data Source(s) Unknown Unknown Problem [facility] ([facility], ) Encounters Encounter Providers Location Date Indications Data Source(s ) Outpatient Attender: KATHY SAXENA [facility] [place] 03/22 03:15:00 PM EDT [facility] ([facility] Outpatient Attender: Zohaib Ansari MD 02/10/2020 11:33:01 AM EDT [facility] Outpatient Attender: Zohaib Ansari MD 01/24/2020 11:17:00 AM EDT [facility] Outpatient Attender: Zohaib Ansari MD 01/07/2020 12:37:00 PM EDT [facility] Outpatient Attender: Zohaib Ansari MD 12/16/2019 03:13:01 PM EDT [facility] Outpatient Attender: NENA AWAD MD 12/16/2019 03:11:02 P [facility] Outpatient Attender: NENA AWAD MD 12/15/2019 02:07:00 P [facility] Outpatient Attender: NENA AWAD MD 11/24/2019 11:43:00 A M [facility] Outpatient Attender: NENA AWAD MD 11/19/2019 07:54:[address] [facility] Outpatient Attender: NENA AWAD MD 11/16/2019 07:31:01 A M EST [facility] Outpatient Attender: NENA AWAD MD 11/11/2019 03:05:02 P [facility] Outpatient Attender: NENA AWAD MD 11/11/2019 02:57:01 P [facility] Outpatient Attender: NENA AWAD MD 11/11/2019 02:55:03 P [facility] Outpatient Attender: NENA AWAD MD 11/11/2019 12:23:01 P [facility] Outpatient Attender: NENA AWAD MD 11/11/2019 12:14:01 P [facility] Outpatient Attender: NENA AWAD MD 11/11/2019 11:52:01 A [facility] Outpatient Attender: NENA AWAD MD 10/30/2019 11:57:01 A [facility] Outpatient Attender: NENA AWAD MD 10/30/2019 11:57:00 A [facility] Outpatient Attender: NENA AWAD MD 10/30/2019 11:56:02 A [facility] Outpatient Attender: NENA AWAD MD 10/30/2019 11:56:00 A [facility] Outpatient Attender: NENA AWAD MD 10/27/2019 04:22:01 P [facility] Outpatient Attender: NENA AWAD MD 10/27/2019 12:26:01 P [facility] Outpatient Attender: NENA AWAD MD 10/26/2019 04:25:00 P [facility] Outpatient Attender: NENA AWAD MD 10/25/2019 04:27:00 P [facility] Outpatient 10/19/2019 01:31:00 PM [facility] Outpatient Attender: NENA AWAD MD 10/15/2019 10:56:00 A [facility] Outpatient Attender: NENA AWAD MD FP 10/15/2019 10:55:01 A [facility] Outpatient Attender: NENA AWAD MD 10/15/2019 10:54:01 A [facility] Outpatient Attender: NENA AWAD MD 10/15/2019 09:28:52 A [facility] Outpatient Attender: NENA AWAD MD FP 10/15/2019 09:23:59 A [facility] Outpatient Attender: NENA AWAD MD FP 10/13/2019 09:01:11 P [facility] Outpatient Attender: NENA AWAD MD FP 10/13/2019 02:51:00 P [facility] Outpatient Attender: NENA AWAD MD FP 10/13/2019 02:47:00 P [facility] Outpatient Attender: NENA AWAD MD FP 10/13/2019 01:24:03 P [facility] Outpatient Attender: NENA AWAD MD FP 10/13/2019 01:24:02 P [facility] Outpatient Attender: NENA AWAD MD FP 10/13/2019 12:36:03 P [facility] Outpatient Attender: NENA AWAD MD FP 10/13/2019 11:20:01 A [facility] Outpatient Attender: NENA AWAD MD FP 10/08/2019 02:28:01 P [facility] Outpatient Attender: NENA AWAD MD FP 09/28/2019 02:41:01 P [facility] Outpatient Attender: NENA AWAD MD FP 09/27/2019 11:26:01 A [facility] Outpatient Attender: NENA AWAD MD FP 09/27/2019 10:39:02 A [facility] Outpatient Attender: NENA AWAD MD FP 09/23/2019 11:11:01 A [facility] Outpatient Attender: NENA AWAD MD FP 09/20/2019 11:10:00 A [facility] Insurance Providers Payer name Policy type / Coverage type Policy ID Covered democrat ID Covered democrat's relationship to ann Policy Ann Plan Information EMEDNY [id number] SP [id number] MEDICARE [id number] SP [id number] MEDICAID M [id number] MEDICARE C [id number] S [id number] MEDICAID [id number] SP [id number] Medicaid S [id number] S [id number] Medicare P [id number] S [id number] Medicaid S [id number] S [id number] Medicare [facility] Medicare Primary [id number] Self [id number] Medicare [facility] Medicare Primary [id number] Self [id number] SELF PAY ONLY [id number] SP [id number] Medicare S [id number] S [id number] MEDICARE [id number] SP [id number] A MEDICARE [id number] SP [id number] SELF PAY O [id number] S [id number] Problems, Conditions, and Diagnoses Code Display Name Description Problem Type Effective Dates Data Source(s) [id number] Pressure ulcer of right foot stage 2 Pre ssure ulcer of right foot stage 2 Problem 10/18/2020 12:00:00 AM EST - 11/02/2020 12:00:00 AM EST [facility] ([facility] R94.6 Abnormal results of thyroid function obinna dies Decreased thyroid stimulating hormone level 11/11/2019 12:13:57 PM [facility] E11.621 Type 2 diabetes mellitus with foot ulcer Foot ulcer due to type 2 diabetes mellitus 11/11/2019 12:13:57 PM [facility] Type 1 diabetes mellitus with diabetic p olyneuropathy Type 1 diabetes mellitus with diabetic polyneuropathy Problem 10/24/2019 12:00:00 AM EST [facility] Pressure ulcer of right heel, stage 2 Pressure u lcer of right heel, stage 2 Problem 10/24/2019 12:00:00 AM EST - 02/25/2020 12:00:00 AM ED T [facility] L97.512 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 & Type 2 diabetes mellitus with foot ulcer 0 01:23:58 PM [facility] [id number] Onychomycosis Onychomycosis Problem 10/12/2019 12:00:00 AM EST [facility] [id number] Multiple complications due to type 1 sharon betes mellitus Multiple complications due to type 1 diabetes mellitus Problem 10/12/19 12:00:00 AM EST [facility] ([facility] Surgeries/Procedures Procedure Description Date Indications Data Source(s) DEBRIDEMENT OPEN WOUND 20 SQ CM/< 10/24/2020 12:00:00 AM EST [facility] ([facility] DEBRIDEMENT SUBCUTANEOUS TISSUE 20 SQ CM/< 10/10/2020 12:00:00 AM EST [facility] ([facility] PARING/CUTTING BENIGN HYPERKERATOTIC LESION 2-4 2020 12:00:00 AM EST [facility] DEBRIDEMENT NAIL ANY METHOD 10/10/2020 12:00:00 AM EST [facility] PARING/CUTTING BENIGN HYPERKERATOTIC LESION 2-4 2019 12:00:00 AM EDT [facility] ([facility] DEBRIDEMENT NAIL ANY METHOD 07/10/2020 12:00:00 AM EDT [facility] PARING/CUTTING BENIGN HYPERKERATOTIC LESION 2-4 2019 12:00:00 AM EDT [facility] DEBRIDEMENT NAIL ANY METHOD 05/01/2020 12:00:00 AM EDT [facility] PARING/CUTTING BENIGN HYPERKERATOTIC LESION 2-4 2019 12:00:00 AM EDT [facility] DEBRIDEMENT NAIL ANY METHOD 02/25/2020 12:00:00 AM EDT [facility] DEBRIDEMENT OPEN WOUND 20 SQ CM/< 02/25/2020 12:00:00 AM EDT [facility] ([facility] DEBRIDEMENT SUBCUTANEOUS TISSUE 20 SQ CM/< 01/18/2020 12:00:00 AM EDT [facility] ([facility] DEBRIDEMENT SUBCUTANEOUS TISSUE 20 SQ CM/< 01/04/2020 12:00:00 AM EDT [facility] ([facility] DEBRIDEMENT SUBCUTANEOUS TISSUE 20 SQ CM/< 12/20/2019 12:00:00 AM EDT [facility] ([facility] DEBRIDEMENT NAIL ANY METHOD 6/> 12/20/2019 12:00:00 AM EDT [facility] ([facility] DEBRIDEMENT SUBCUTANEOUS TISSUE 20 SQ CM/< 12/06/2019 12:00:00 AM EDT [facility] DEBRIDEMENT SUBCUTANEOUS TISSUE 20 SQ CM/< 11/22/2019 12:00:00 AM EST [facility] DEBRIDEMENT SUBCUTANEOUS TISSUE 20 SQ CM/< 11/08/2019 12:00:00 AM EST [facility] DEBRIDEMENT SUBCUTANEOUS TISSUE 20 SQ CM/< 11/01/2019 12:00:00 AM EST [facility] DEBRIDEMENT SUBCUTANEOUS TISSUE 20 SQ CM/< 10/18/2019 12:00:00 AM EST [facility] DEBRIDEMENT SUBCUTANEOUS TISSUE 20 SQ CM/< 09/28/2019 12:00:00 AM EST [facility] PARING/CUTTING BENIGN HYPERKERATOTIC LESION 1 09/28/19 12:00:00 AM EST [facility] ([facility] DEBRIDEMENT NAIL ANY METHOD 09/28/2019 12:00:00 AM EST [facility] ([facility] Results ID Date Data Source [id number] 11/11/2019 11:51:15 AM EST [facility] Measurements & CalculationsHeight: 72 inches (6 ft. 0 in.) 182.88 cm Weight: 234 pounds 106.36 kg Body Mass Index (BMI): 31.85BMI Interpretation: ObeseBody Surface Area (BSA): 2.28Weight Management Education Done (Nutrition/Physical Activity)Vital SignsTemperature: 97.3F oral Pulse Rate: 87 beats/minuteRespiratory Rate: 18 respirations/minuteBlood Pressure: 106/65 left arm sitting automaticO2 Saturation: 98% room airVital Signs performed by: Nina Hope LPN, November 11, 2019 12:00 PMVital Signs performed by: Willard BORGES, November 11, 2019 12:01 PMInitial Intake Information from: patientRoom #: 8Smoking, Tobacco, Vaping or Smoke Exposure StatusSmoke Status: current every day smokerTobacco Use: YesAdv to Quit: YesDo you vape? NoPassive Smoke Exposure: YesHealthcare HistorySince your last office visit...Have you been admitted to the hospital? NoHave you been to an emergency room (ER) or urgent care clinic? NoHave you seen another healthcare provider? NoHave you seen a dentist? NoRate Your HealthIn general, would you say your health is? FairPain AssessmentAre you currently having any pain which... You would like your provider to address? Yes Affects your activity level? YesDepression Screening - PHQ-2Over the last two weeks, have you... Had little interest or pleasure in doing things? Not at all Been feeling down, depressed, or hopeless? Not at all PHQ-2 Score: 0Anxiety Screening - JAXON-2Over the last two weeks, have you been... Feeling nervous, anxious, or on edge? Not at all Unable to stop or control worrying? Not at all JAXON-2 Score: 0Infectious Disease / Travel ScreeningRecent travel for you, your family, and/or any sexual partners? NoPain AssessmentPain ScaleNumeric Rating Scale: 8 / 10Location: left heelDuration: monthsIs the pain radiating? NoScreening, Brief Intervention, & Referral to Treatment (SBIRT)Pre-Screening Questions How many times have you have 5 or more drinks in a day? 0How many times have you used an illegal drug or used a prescription medication for a non-medical reason? 0Performed by: Nina Hope LPN, November 11, 2019 11:55 AMPatient History Medical History:Hearling LossDiabetes - Type IIHyperlipidemiaSurgical History:Ear SurgeryFamily History:No known family historySocial/Personal History: Advised to Quit/Tobacco Education: YesChief Complaintwound check on left heelHistory of Present Illness (HPI)59 yo male here for wound check of left heel. Pt states home health nurse was in yesterday and changed dressing. Pt reports he sees Dr. Saxena three times a week and has [facility] Home nurse come in two days a week. He reports the wound is slowly improving. Has no concerns.Problem ReviewProblem List was reviewed and/or updated during this visit.Medication Reconciliation & ReviewMedication List was reviewed and/or updated during this visit, including review of any [id number] medications, herbal therapies, and/or supplements.Allergy ReviewAllergy List was reviewed and/or updated during this visit. Patient has no known allergies.Adult Preventive CareProvider Calculated and Reviewed all Clinical Protocols for patient today. Screening Tobacco Screening: Smoking Status: current every day smoker (11/11/2019) Tobacco Use: Currently (11/11/2019) Advised to Quit: Yes (11/11/2019)Labs/Meds/Other Counseling-Nutrition and Physical Activity:BMI Interpretation: Obese (11/11/2019) Counseling: Done (11/11/2019) Physical Activity: Done (11/11/2019)Cancer Screening ColonoscopyReviewed:Previous Comments: Unaware 12/21/18 (12/21/2018)Today's Comments: refusedReview of Systems General: Denies chills, dizziness, fever, feeling ill. Musculoskeletal: Denies recent injury. Skin: Complains of see HPI. denies swelling, drainage, enlarging of the original woundPhysical ExamGeneral Appearance: disheveled male, appearing older than stated age, well nourished, well hydrated, in no acute distressRespiratory, Auscultation: diffuse scattered wheezes, good air movementCardiovascular, Auscultation: S1, S2 audible; no murmur, rub, or gallop; RRRAbdomen: soft, non-tender, no masses, bowel sounds normalGait & Station: limping somewhat favoring affected footSkin, Inspection: occlusive dressing in place, revealing a single approximately 4cm across by 0.5cm deep ulcerated lesion on plantar surface of right calcaneous, granulation tissue in base, no active drainage or foul odorOrientation: oriented to time, place, and personMood & Affect: no depression, anxiety, or agitationJudgment & Insight: appears i ntactRate Your HealthIn general, would you say your health is? FairAssessment & Plan Problems:Added: Decreased thyroid stimulating hormone level (SPR99-R35.6) Assessment: Instructions: Do not recommend any medicaiton at this time, repeat with next labs.Changed:From: Dx of Type 2 diabetes mellitus without complications (AQL27-J03.9) To: Foot ulcer due to type 2 diabetes mellitus (ZRB81-P43.621)Assessed:Non-pressure chronic ulcer of other part of right foot with fat layer exposed & Type 2 diabetes mellitus with foot ulcer (ICD10- L97.512) Assessment: Instructions: Recommend continuing with [facility] and . Record releases signed for this. Diabetes appears adequately controlled with an A1c of 8.0 recently. Report to the ER for worsening symptoms, pain, or fever.Patient Instructions/Care Plan: Non-pressure chronic ulcer of other part of right foot with fat layer exposed & Type 2 diabetes mellitus with foot ulcer: Recommend continuing with [facility] and . Record releases signed for this. Diabetes appears adequately controlled with an A1c of 8.0 recently. Report to the ER for worsening symptoms, pain, or fever.Decreased thyroid stimulating hormone level: Do not recommend any medicaiton at this time, repeat with next labs. Plan developed in collaboration with patient and/or familyMedications:ONETOUCH ULTRASOFT LANCETSONETOUCH ULTRA BLUE IN VITRO STRIPONETOUCH ULTRA 2 W/DEVICE KITLEVEMIR FLEXTOUCH 100 UNIT/ML SUBCUTANEOUS SOLUTION PEN-INJECTORNOVOLOG FLEXPEN 100 UNIT/ML SUBCUTANEOUS SOLUTION [id number] GLUCOMETER W/DEVICE KITBD PEN NEEDLE MINI U/F 31G X 5 MMMedication Changes:Removed:METFORMIN HCL ER 500 MG ORAL TABLET EXTENDED RELEASE 24 HOUR-2 po bid Qty: 120[Tablet] Refills: 5Allergies:No Known Allergies (updated 11/11/2019) Orders:COMP METABOLIC PANEL [CPT-42091] CBC W/DIFF [CPT-75385] TSH [CPT-16531] T-4 free [CPT-35605] Adult - Ofc Vst, EST, Level III [CPT-74558] Follow-Up Return to clinic: in 4-6 weeks [facility] Dr. Ansari for diabetesAdditional Follow-Up: insulin-dependent T2DM and slight hyperthyroidism; lab reviewClinical Visit Summary Completed] Name Value Range Interpretation Code Description Data Anais rce(s) Supporting Document(s) ID Date Data Source [id number] 10/27/2019 03:45:00 PM EST [facility] Name Value Range Interpretation Code Description Data Anais rce(s) Supporting Document(s) BG FASTING 177 mg/dL 70-100 H [facility] TSH 0.164 microintl units/mL 0.358-3.740 L [facility] ID Date Data Source [id number] 10/27/2019 03:45:00 PM EST [facility] Name Value Range Interpretation Code Description Data Anais rce(s) Supporting Document(s) HGBA1C 8.0 % N [facility] ID Date Data Source [id number] 10/27/2019 03:45:00 PM [facility] Name Value Range Interpretation Code Description Data Anais rce(s) Supporting Document(s) HCT 43.6 % 42.0-52.0 N [facility] HGB 14.3 g/dL 13.5-17.5 N [facility] MCH 32.8 G/DL pg 32.0-36.5 N [facility] MCHC 28.8 PG % 27.0-33.0 N [facility] PLATELETS 233 10 10*3/mm3 150-450 N [facility] RBC 4.97 10 10*6/mm3 4.30-6.10 N [facility] RDW 12.8 % 11.5-14.5 N [facility] WBC TOTAL 10.9 4.0-10.0 H [facility] ID Date Data Source [id number] 10/13/2019 11:28:16 AM [facility] Measurements & CalculationsHeight: 72 inches (6 ft. 0 in.) 182.88 cm Weight: 233 pounds 105.91 kg Body Mass Index (BMI): 31.71BMI Interpretation: ObeseBody Surface Area (BSA): 2.28Weight Management Education Done (Nutrition/Physical Activity)Vital SignsPulse Rate: 91 beats/minuteRespiratory Rate: 16 respirations/minuteBlood Pressure: 124/81 right arm sitting automaticO2 Saturation: 100% room airVital Signs performed by: Elvira Rincon MA, October 13, 2019 11:28 AMInitial Intake Information from: patientRoom #: 14Infectious Disease- Travel Have you or your sexual partner travelled outside of the country recently? NoSmoking, Tobacco or Smoke Exposure StatusSmoke Status: current every day smokerTobacco Use: YesAdv to Quit: YesPassive Smoke Exposure: YesHealthcare HistorySince your last office visit...Have you been admitted to the hospital? Yes - [facility]- Right foot Hospital admission date reported today: 07/12/2019Have you been to an emergency room (ER) or urgent care clinic? NoHave you seen another healthcare provider? NoHave you seen a dentist? NoIntake performed by: Elvira Rincon MA, October 13, 2019 11:32 AMRate Your HealthIn general, would you say your health is? FairPain AssessmentAre you currently having any pain which... You would like your provider to address? No Affects your activity level? NoDepression Screening - PHQ-2Over the last two weeks, have you... Had little interest or pleasure in doing things? Not at all Been feeling down, depressed, or hopeless? Not at all PHQ-2 Score: 0Anxiety Screening - JAXON-2Over the last two weeks, have you been... Feeling nervous, anxious, or on edge? Not at all Unable to stop or control worrying? Not at all JAXON-2 Score: 0Screening, Brief Intervention, & Referral to Treatment (SBIRT)Pre-Screening Questions How many times have you have 5 or more drinks in a day? 0How many times have you used an illegal drug or used a prescription medication for a non- medical reason? 0Performed by: Elvira Rincon MA, October 13, 2019 11:32 AMPatient History Medical History:Hearling LossDiabetes - Type IIHyperlipidemiaSurgical History:Ear SurgeryFamily History:No known family historySocial/Personal History: Smoking Status: current every day smokerAdvised to Quit/Tobacco Education: YesChief Complaintfollow-up visitHistory of Present Illness (HPI)Was in the hospital until a month ago for a non healing diabetic foot ulcer/osteomyelitis. Home health nurse has been coming in and been doing dressing changes 2-3 times per week. He feels as if it is not progressing as it should. Denies fever and chills. No drainage. Not checking sugars. Apparently out of test strips. A prescription was sent in for these 3 weeks ago. I am resubmitting this today and he will let us know. He has not been using Novalog because it is a sliding scale and he is unable to adjust his insulin dose if he does not check his sugars.HPI performed by: Zohaib Ansari MD, October 13, 2019 1:18 PMTransitions of Care InboundProblem ReviewProblem List was reviewed and/or updated during this visit.Medication Reconciliation & ReviewMedication List was reviewed and/or updated during this visit, including review of any [id number]-[id number] medications, herbal therapies, and/or supplements.Allergy ReviewAllergy List was reviewed and/or updated during this visit.Adult Preventive CareProvider Calculated and Reviewed all Clinical Protocols for patient today. Screening Tobacco Screening: Smoking Status: current every day smoker (10/13/2019) Advised to Quit: Yes (10/13/2019)Labs/Meds/Other Counseling-Nutrition and Physical Activity:BMI Interpretation: Obese (10/13/2019) Counseling: Done (10/13/2019) Physical Activity: Done (10/13/2019)Cancer Screening Colorectal Screening: Patient refused colorectal screeningReview of Systems General: Denies chills, fever. Skin: Complains of see HPI. Physical ExamGeneral Appearance: well nourished, well hydrated, no acute distressRespiratory, Auscultation: clear to auscultation bilaterally; no rales, rhonchi, or wheezesRespiratory, Effort: no intercostal retractions or use of accessory musclesCardiovascular, Auscultation: S1, S2 audible; no murmur, rub, or gallop; RRRSkin, Inspection: 2 by 2 cm 'punched out appearing ulcer plantar surface of right foot. Clean and dry with no surrounding erythema. Care Management Plan Transitions of CareInboundRate Your HealthIn general, would you say your health is? FairAssessment & Plan Problems:Added: Non-pressure chronic ulcer of other part of right foot with fat layer exposed & Type 2 diabetes mellitus with foot ulcer (OCP91-Q99.512) Assessment: Instructions: You missed your appointment with wound care [facility] yesterday. Please continue current plan for this and recheck with them as soon as you can. If this worsens go to the ER.Assessed:Type 2 diabetes mellitus without complications (ICD10- E11.9) Assessment: Instructions: Please check your sugar three times a day and call us next week with your numbers. I think that I am probably going to work on a standing dose of Novalog rather than sliding scale to simplify your regimen. Continue current dose of levemir and recheck here one month with fasting blood tests before.Patient Instructions/Care Plan: Type 2 diabetes mellitus without complications: Please check your sugar three times a day and call us next week with your numbers. I think that I am probably going to work on a standing dose of Novalog rather than sliding scale to simplify your regimen. Continue current dose of levemir and recheck here one month with fasting blood tests before.Non-pressure chronic ulcer of other part of right foot with fat layer exposed & Type 2 diabetes mellitus with foot ulcer: You missed your appointment with wound care [facility] yesterday. Please continue current plan for this and recheck with them as soon as you can. If this worsens go to the ER. Plan developed in collaboration with patient and/or familyMedications:ALCOHOL PREP 70 % PADONETOUCH ULTRASOFT LANCETSONETOUCH ULTRA BLUE IN VITRO STRIPONETOUCH ULTRA 2 W/DEVICE KITLEVEMIR FLEXTOUCH 100 UNIT/ML SUBCUTANEOUS SOLUTION PEN-INJECTORNOVOLOG FLEXPEN 100 UNIT/ML SUBCUTANEOUS RENATO UTION [id number] GLUCOMETER W/DEVICE KITBD PEN NEEDLE MINI U/F 31G X 5 MMMETFORMIN HCL ER 500 MG ORAL TABLET EXTENDED RELEASE 24 HOURMedication Changes:Refilled:ONETOUCH ULTRA BLUE IN VITRO STRIP-test qid Qty: 120[Strip] Refills: 5 Method: ElectronicAllergies:No Known Allergies (updated 12/21/2018) Orders:Adult - Ofc Vst, EST, Level III [CPT-16825] COMP METABOLIC PANEL [CPT-34795] HgBA1c [CPT-69246] LIPID PANEL [CPT-53025] TSH [CPT-40379] Medications:ONETOUCH ULTRA BLUE IN VITRO STRIP (GLUCOSE BLOOD) test qid #120[Strip] x 5 Route:IN VITRO Entered and Authorized by: Zohaib Ansari MD Method used: Electronically to [facility] (retail) [address] [place] [address] Note to Pharmacy: Route: INVITR; RxID: [id number] Administered/Entered:Vaccination Group: InfluenzaHistorical Source: Historical information - from other providerSeries: 1Vaccination: Unspecified FormulationMfr / Lot# / Exp.Date: Amt. Given / Route / Site: NDC / CVX: 88Administered Date: 10/13/2019VFC Eligibility: Not recordedVIS Date: Comments: Entered by: Elvira Rincon MA Name Value Range Interpretation Code Description Data Anais rce(s) Supporting Document(s) Procedure
--- OUTSIDE RECORDS SUMMARY | 2020-11-13 18:33 | CCD | Continuity of Care Document ---
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 Monico Saxena DPM Onset: 10/12/2019 Onychomycosis Aman Saxena DPM Onset: 10/12/2019 Type 1 diabetes mellitus with diabetic polyneuropathy Aman Saxena DPM Onset: 10/24/2019 Resolved Problems Pressure ulcer of right foot stage 2 Aman Saxena DPM On set: 10/18/2020 Resolved: 11/02/2020 Social History Type Date Description Comments Sex [...] Plus 31G X 5 mm Misc KATERINA Riggins, Willard SM Alcohol Prep 70% Pads KATERINA Riggins [...] Information Available Procedures Date Code Description Status 10/24/2020 18487 Debridement Of Wound 20 SQ CM Co mpleted 10/10/2020 12264 Debridement 6-10 Nails Electric Completed 10/10/2020 47344 Paring/Cut Benign Lesion 2 To 4 Completed 10/10/2020 52829 Debridement Skin/Tissue Complete d 07/10/2020 42014 Debridement 6-10 Nails Electric Completed 07/10/2020 89579 Paring/Cut Benign Lesion 2 To 4 Completed Medical Devices Description No Information Available Encounters Description No Information Available Assessments Date Code Description Provider 10/24/2020 E10.621 Type 1 diabetes mellitus with fo ot ulcer Aman Saxena, ALAN 10/24/2020 L89.891 Pressure ulcer of other site, st age 1 Aman Saxena, MIGUELM 10/10/2020 E10.621 Type 1 diabetes mellitus with fo ot ulcer Aman Saxena, MIGUELM 10/10/2020 L89.892 Pressure ulcer of other site, st age 2 Aman Saxena, MIGUELM 10/10/2020 B35.1 Tinea unguium Aman Saxena, MIUGELM 10/10/2020 E10.42 Type 1 diabetes mellitus with di abetic polyneuropathy Aman Saxena, MIGUELM 10/10/2020 L84 Corns and callosities Aman Saxena, MIGUELM 07/10/2020 B35.1 Tinea unguium Aman Saxena, ALAN 07/10/2020 E10.42 Type 1 diabetes mellitus with di abetic polyneuropathy Aman Saxena, ALAN 07/10/2020 L84 Corns and callosities Aman Saxena DPM Plan of Treatment Future Appointment(s):* 11/07/2020 11:00 am - Aman Saxena DPM at [facility] Functional Status Description No Information Available Mental Status Description No Information Available Referrals Description No Information Available
[2020-11-13 19:08] LABS: HEMATOCRIT 42.8 % (42.0-52.0); HEMOGLOBIN 14.1 g/dl (13.5-17.5); MEAN CORPUSCULAR HEMOGLOBIN 28.9 pg (27.0-33.0); MEAN CORPUSCULAR HGB CONC 32.9 g/dl (32.0-36.5); MEAN CORPUSCULAR VOLUME 87.7 fl (80.0-96.0); PLATELET COUNT, AUTOMATED 193 10^3/uL (150-450); RED BLOOD COUNT 4.88 10^6/uL (4.30-6.10); WHITE BLOOD COUNT 13.5 10^3/uL (4.0-10.0)
[2020-11-13 19:57] LABS: ACETAMINOPHEN LEVEL < 2.0 UG/ML (10.0-30.0); ALBUMIN 4.1 GM/DL (3.2-5.2); ALT/SGPT 22 U/L (12-78); BILIRUBIN,DIRECT < 0.1 MG/DL (0.0-0.2); BILIRUBIN,TOTAL 0.2 MG/DL (0.2-1.0); BLOOD UREA NITROGEN 22 MG/DL (7-18); CALCIUM LEVEL 8.8 MG/DL (8.8-10.2); CARBON DIOXIDE LEVEL 32 MEQ/L (21-32); CHLORIDE LEVEL 104 MEQ/L (98-107); CREATININE FOR GFR 1.02 MG/DL (0.70-1.30); ETHYL ALCOHOL (ETHANOL) 0.003 % (0.000-0.010); GLOMERULAR FILTRATION RATE > 60.0 (>49); GLUCOSE, FASTING 160 MG/DL (70-100); POTASSIUM SERUM 3.8 MEQ/L (3.5-5.1); SALICYLATE LEVEL 1.7 MG/DL (5.0-30.0); SODIUM LEVEL 142 MEQ/L (136-145); THYROID STIMULATING HORMONE 0.214 uIU/ML (0.358-3.740)
[2020-11-13 21:02] LABS: AMPHETAMINES LEVEL URINE NEGATIVE (NEGATIVE); BARBITURATES URINE NEGATIVE (NEGATIVE); BENZODIAZEPINES URINE NEGATIVE (NEGATIVE); CANNABINOIDS URINE POSITIVE (NEGATIVE); COCAINE METABOLITE URINE NEGATIVE (NEGATIVE); METHADONE URINE NEGATIVE (NEGATIVE); OPIATES URINE NEGATIVE (NEGATIVE); PHENCYCLIDINE URINE NEGATIVE (NEGATIVE)
--- OUTSIDE RECORDS SUMMARY | 2020-11-13 21:37 | CCD ---
Author Author [facility] Organization [facility] Address Unknown Phone Unavailable Care Team Providers Care Safety Person Name Role Phone Cady SAXENA DPM Unavailable [...] Unavailable Unavailable Lo AWAD MD Unavailable Unavailable oL AWAD MD Unavailable Unavailable Lo AWAD MD [...] NENA ACOSTA Unavailable Unavailable DELMI, T NENA CAOSTA Unavailable Unavailable DELMI, T NENA ACOSTA Unavailable [...] is protected by Article 27-F of the [place] State Public Health law. If you continue you may have access to information: Regarding HIV / AIDS; Provided by facilities licensed or operated by the [facility] Office of Mental Health; or Provided by the [facility] Office for People With Developmental Disabilities. If such information is present, then the following [facility] mandated warning applies: This information has been [...] law may result in a fine or fdc sentence or both. A general authorization for the release of medical or other information is NOT sufficient authorization for further disc losure. Family History Family Member Name Family Member Gender Family Member Status Date o f Status Description Data Source(s) Unknown Unknown Problem [facility] ([facility], ) Encounters Encounter Providers Location Date Indications Data Source(s ) Outpatient Attender: KATHY SAXENA [facility] 03/22 03:15:00 PM EDT [facility] ([facility] Outpatient Attender: Zohaib Ansari MD 02/10/2020 11:33:01 AM EDT [facility] Outpatient Attender: Zohaib Ansari MD 01/24/2020 11:17:00 AM EDT [facility] Outpatient Attender: Zohaib Ansari MD 01/07/2020 12:37:00 PM EDT [facility] Outpatient Attender: Zohaib Ansari MD 12/16/2019 03:13:01 PM EDT [facility] Outpatient Attender: NENA AWAD MD 12/16/2019 03:11:02 P [facility] Outpatient Attender: NENA AWAD MD 12/15/2019 02:07:00 P M [facility] Outpatient Attender: NENA AWAD MD 11/24/2019 11:43:00 A M [facility] Outpatient Attender: NENA AWAD MD 11/19/2019 07:54:00 A [facility] Outpatient Attender: NENA AWAD MD 11/16/2019 07:31:01 A M EST [facility] Outpatient Attender: NENA AWAD MD 11/11/2019 03:05:02 P [facility] Outpatient Attender: NENA AWAD MD 11/11/2019 02:57:01 P [facility] Outpatient Attender: NENA AWAD MD 11/11/2019 02:55:03 P [facility] Outpatient Attender: NENA AWAD MD 11/11/2019 12:23:01 P [facility] Outpatient Attender: NENA AWAD MD 11/11/2019 12:14:01 P [facility] Outpatient Attender: NENA AWAD MD 11/11/2019 11:52:01 A [facility] Outpatient Attender: NENA AWAD MD 10/30/2019 11:57:01 A [facility] Outpatient Attender: NENA AWAD MD 10/30/2019 11:57:00 A [facility] Outpatient Attender: NENA AWAD MD 10/30/2019 11:56:02 A [facility] Outpatient Attender: NENA AWAD MD 10/30/2019 11:56:00 A [facility] Outpatient Attender: NENA AWAD MD 10/27/2019 04:22:01 P [facility] Outpatient Attender: NENA AWAD MD 10/27/2019 12:26:01 P [facility] Outpatient Attender: NENA AWAD MD 10/26/2019 04:25:00 P [facility] Outpatient Attender: NENA AWAD MD 10/25/2019 04:27:00 P [facility] Outpatient 10/19/2019 01:31:00 PM [facility] Outpatient Attender: NENA AWAD MD 10/15/2019 10:56:00 A [facility] Outpatient Attender: NENA AWAD MD FP 10/15/2019 10:55:01 A [facility] Outpatient Attender: NENA AWAD MD 10/15/2019 10:54:01 A [facility] Outpatient Attender: NENA AWAD MD 10/15/2019 09:28:52 A [facility] Outpatient Attender: NENA AWAD MD FP 10/15/2019 09:23:59 A [facility] Outpatient Attender: NENA AWAD MD FP 10/13/2019 09:01:11 P [facility] Outpatient Attender: NENA AWAD MD FP 10/13/2019 02:51:00 P [facility] Outpatient Attender: NENA AWAD MD FP 10/13/2019 02:47:00 P [facility] Outpatient Attender: NENA AWAD MD FP 10/13/2019 01:24:03 P [facility] Outpatient Attender: NENA AWAD MD FP 10/13/2019 01:24:02 P [facility] Outpatient Attender: NENA AWAD MD FP 10/13/2019 12:36:03 P [facility] Outpatient Attender: NENA AWAD MD FP 10/13/2019 11:20:01 A [facility] Outpatient Attender: NENA AWAD MD FP 10/08/2019 02:28:01 P [facility] Outpatient Attender: NENA AWAD MD FP 09/28/2019 02:41:01 P [facility] Outpatient Attender: NENA AWAD MD FP 09/27/2019 11:26:01 A [facility] Outpatient Attender: NENA AWAD MD FP 09/27/2019 10:39:02 A [facility] Outpatient Attender: NENA AWAD MD FP 09/23/2019 11:11:01 A [facility] Outpatient Attender: NENA AWAD MD FP 09/20/2019 11:10:00 A [facility] Insurance Providers Payer name Policy type / Coverage type Policy ID Covered alliance party ID Covered alliance party's relationship to ann Policy Ann Plan Information EMEDNY [id number] SP [id number] MEDICARE [id number] SP [id number] MEDICAID M [id number] S [id number] MEDICARE C [id number] S [id number] [id number] MEDICAID [id number] SP [id number] Medicaid S [id number] S [id number] Medicare P [id number] S [id number] Medicaid S [id number] S [id number] Medicare [facility] Medicare Primary [id number] Self [id number] Medicare [facility] Medicare Primary [id number] Self [id number] SELF PAY ONLY [id number] SP [id number] Medicare S [id number] S [id number] MEDICARE [id number] SP [id number] A MEDICARE [id number] SP [id number] SELF PAY O [id number] S [id number] Problems, Conditions, and Diagnoses Code Display Name Description Problem Type Effective Dates Data Source(s) [id number] Pressure ulcer of right foot stage 2 Pre ssure ulcer of right foot stage 2 Problem 10/18/2020 12:00:00 AM EST - 11/02/2020 12:00:00 AM EST [facility] ([facility] R94.6 Abnormal results of thyroid function obinna dies Decreased thyroid stimulating hormone level 11/11/2019 12:13:57 PM [facility] E11.621 Type 2 diabetes mellitus with foot ulcer Foot ulcer due to type 2 diabetes mellitus 11/11/2019 12:13:57 PM [facility] Type 1 diabetes mellitus with diabetic p [...] mellitus with foot ulcer 0 01:23:58 PM [facility] [id number] Onychomycosis Onychomycosis Problem 10/12/2019 12:00:00 AM EST [facility] [id number] Multiple complications due to type 1 sharon [...] [facility] Results ID Date Data Source [id number] 11/11/2019 11:51:15 AM EST [facility] Measurements & CalculationsHeight: 72 inches (6 ft. 0 in.) 182.88 cm Weight: 234 pounds 106.36 kg Body Mass Index (BMI): 31.85BMI Interpretation: ObeseBody Surface Area (BSA): 2.28Weight Management Education Done (Nutrition/Physical Activity)Vital SignsTemperature: 97.3F oral Pulse Rate: 87 beats/minuteRespiratory Rate: 18 respirations/minuteBlood Pressure: 106/65 left arm sitting automaticO2 Saturation: 98% room airVital Signs performed by: iNna Hope LPN, November 11, 2019 12:00 PMVital [...] Saxena three times a week and has [facility] Home nurse come in two days a week. He reports the wound is slowly improving. Has no concerns.Problem ReviewProblem List was reviewed and/or updated during this visit.Medication Reconciliation & ReviewMedication List was reviewed and/or updated during this visit, including review of any prcz-ydc-xwgxrag medications, herbal therapies, and/or supplements.Allergy ReviewAllergy List [...] Plan Problems:Added: Decreased thyroid stimulating hormone level (MGW75-L19.6) Assessment: Instructions: Do not recommend any medicaiton at this time, repeat with next labs.Changed:From: Dx of Type 2 diabetes mellitus without complications (SPP60-W40.9) To: Foot ulcer due to type 2 diabetes mellitus (RTZ22-N78.621)Assessed:Non-pressure chronic ulcer of other part of right foot with fat layer exposed & Type 2 diabetes mellitus with foot ulcer (ICD10- L97.512) Assessment: Instructions: Recommend continuing with [facility] and . Record releases signed for this. Diabetes appears adequately controlled with an A1c of 8.0 recently. Report to the ER for worsening symptoms, pain, or fever.Patient Instructions/Care Plan: Non-pressure chronic ulcer of other part of right foot with fat layer exposed & Type 2 diabetes mellitus with foot ulcer: Recommend continuing with [facility] and . Record releases signed for this. [...] SOLUTION PEN-INJECTORNOVOLOG FLEXPEN 100 UNIT/ML SUBCUTANEOUS SOLUTION [id number] GLUCOMETER W/DEVICE KITBD PEN NEEDLE MINI U/F 31G X 5 MMMedication Changes:Removed:METFORMIN HCL ER 500 MG ORAL TABLET EXTENDED RELEASE 24 HOUR-2 po bid Qty: 120[Tablet] Refills: 5Allergies:No Known Allergies (updated 11/11/2019) Orders:COMP METABOLIC PANEL [CPT-02445] CBC W/DIFF [CPT-24880] TSH [CPT-80948] T-4 free [CPT-13271] Adult - Ofc Vst, EST, Level III [CPT-46384] Follow-Up Return to clinic: in 4-[address] [facility] Dr[facility] Ansari for diabetesAdditional Follow-Up: insulin-dependent T2DM and slight hyperthyroidism; lab reviewClinical Visit Summary Completed] Name Value Range Interpretation Code Description Data Anais rce(s) Supporting Document(s) ID Date Data Source [id number] 10/27/2019 03:45:00 PM EST [facility] Name Value Range Interpretation Code Description Data Anais rce(s) Supporting Document(s) BG FASTING 177 mg/dL 70-100 H [facility] TSH 0.164 microintl units/mL 0.358-3.740 L [facility] ID Date Data Source [id number] 10/27/2019 03:45:00 PM EST [facility] Name Value Range Interpretation Code Description Data Anais rce(s) Supporting Document(s) HGBA1C 8.0 % N [facility] ID Date Data Source [id number] 10/27/2019 03:45:00 PM [facility] Name Value Range Interpretation Code Description Data Anais rce(s) Supporting Document(s) HCT 43.6 % 42.0-52.0 N [facility] HGB 14.3 g/dL 13.5-17.5 N [facility] MCH 32.8 G/DL pg 32.0-36.5 N [facility] MCHC 28.8 PG % 27.0-33.0 N [facility] PLATELETS 233 10 10*3/mm3 150-450 N [facility] RBC 4.97 10 10*6/mm3 4.30-6.10 N [facility] RDW 12.8 % 11.5-14.5 N [facility] WBC TOTAL 10.9 4.0-10.0 H [facility] ID Date Data Source [id number] 10/13/2019 11:28:16 AM [facility] Measurements & CalculationsHeight: 72 inches (6 ft. [...] during this visit, including review of any tldb-hpc-rioqmdk medications, herbal therapies, and/or supplements.Allergy ReviewAllergy List [...] Type 2 diabetes mellitus with foot ulcer (EFG83-I99.512) Assessment: Instructions: You missed your appointment with [...] PEN-INJECTORNOVOLOG FLEXPEN 100 UNIT/ML SUBCUTANEOUS RENATO UTION [id number] GLUCOMETER W/DEVICE KITBD PEN NEEDLE MINI U/F 31G X 5 MMMETFORMIN HCL ER 500 MG ORAL TABLET EXTENDED RELEASE 24 HOURMedication Changes:Refilled:ONETOUCH ULTRA BLUE IN VITRO STRIP-test qid Qty: 120[Strip] Refills: 5 Method: ElectronicAllergies:No Known Allergies (updated 12/21/2018) Orders:Adult - Ofc Vst, EST, Level III [CPT-38509] COMP METABOLIC PANEL [CPT-24958] HgBA1c [CPT-68873] LIPID PANEL [CPT-47841] TSH [CPT-92224] Medications:ONETOUCH ULTRA BLUE IN VITRO STRIP (GLUCOSE BLOOD) test qid #120[Strip] x 5 Route:IN VITRO Entered and Authorized by: Zohaib Ansari MD Method used: Electronically to [facility] (retail) [address] [place] [address] Note to Pharmacy: Route: INVITR; RxID: [id number] Administered/Entered:Vaccination Group: InfluenzaHistorical Source: Historical information - from other providerSeries: 1Vaccination: Unspecified FormulationMfr / Lot# / Exp.Date: Amt. Given / Route / Site: NDC / CVX: 88Administered Date: 10/13/2019VFC Eligibility: Not recordedVIS Date: Comments: Entered by: Elvira Rincon MA Name Value Range Interpretation Code Description Data Anais rce(s) Supporting Document(s) Procedure
--- NOTE | 2020-11-13 22:34 | REPVR ---
PROCEDURE INFORMATION: Exam: CT Head Without Contrast Exam date and time: 11/13/2020 10:20 PM Age: 60 years old Clinical indication: Altered mental status/memory loss; Additional info: AMS TECHNIQUE: Imaging protocol: Computed tomography of the head without contrast. Radiation optimization: All CT scans at this facility use at least one of these dose optimization techniques: automated exposure control; mA and/or kV adjustment per patient size (includes targeted exams where dose is matched to clinical indication); or iterative reconstruction. COMPARISON: 1. CT Head without contrast 2020-06-06 02:[address] IAC W/O CONTRAST 2019-01-08 14:07 FINDINGS: Brain: Chronic ischemic changes in the white matter. No midline shift, mass, fluid collection, or evidence of acute hemorrhage. Cerebral ventricles: No ventriculomegaly. Bones/joints: Unremarkable. No acute fracture. Paranasal sinuses: Visualized sinuses are unremarkable. No fluid levels. Mastoid air cells: Visualized mastoid air cells are well aerated. Soft tissues: Unremarkable. IMPRESSION: No acute abnormality or significant change. Electronically signed by: Gonsalo Davis On 11/13/2020 22:35:15 PM
[2020-11-14] MEDS ORDERED: MAALOX 30 ML SUSP *UDC PO PRN (02:45)
[2020-11-14] MEDS ORDERED: MOM 30ML SUSPENSION UDC PO PRN (02:45)
[2020-11-14] MEDS ORDERED: traZODone 50 MG TAB PO PRN (02:45)
[2020-11-14] MEDS ORDERED: ACETAMINOPHEN TAB 650MG DOSE (2X325MG) PO PRN (02:45)
--- OUTSIDE RECORDS SUMMARY | 2020-11-14 02:47 | CCD ---
Author Author [facility] Organization [facility] Address Unknown Phone Unavailable Care Team Providers Care Fiscal Agent Name Role Phone Cady SAXENA DPM Unavailable [...] Unavailable Lo AWAD MD Unavailable Unavailable Lo WAAD MD Unavailable Unavailable Lo AWAD MD Unavailable [...] T NENA ACOSTA Unavailable Unavailable DELMI, T ENNA ACOSTA Unavailable Unavailable DELMI, T NENA ACOSTA [...] is protected by Article 27-F of the [place] Public Health law. If you continue you may have access to information: Regarding HIV / AIDS; Provided by facilities licensed or operated by the [facility] Office of Mental Health; or Provided by the [facility] Office for People With Developmental Disabilities. If such information is present, then the following [facility] mandated warning applies: This information has been [...] law may result in a fine or senior care sentence or both. A general authorization for the release of medical or other information is NOT sufficient authorization for further disc losure. Family History Family Member Name Family Member Gender Family Member Status Date o f Status Description Data Source(s) Unknown Unknown Problem [facility] ([facility], ) Encounters Encounter Providers Location Date Indications Data Source(s ) Outpatient Attender: KATHY SAXENA [facility] 03/22 03:15:00 PM EDT [facility] ([facility] Outpatient Attender: Zohaib Ansari MD 02/10/2020 11:33:01 AM EDT [facility] Outpatient Attender: Zohaib Ansari MD 01/24/2020 11:17:00 AM EDT [facility] Outpatient Attender: Zohaib Ansari MD 01/07/2020 12:37:00 PM EDT [facility] Outpatient Attender: Zohaib Ansari MD 12/16/2019 03:13:01 PM EDT [facility] Outpatient Attender: NENA AWAD MD 12/16/2019 03:11:02 P [facility] Outpatient Attender: NENA AWAD MD 12/15/2019 02:07:00 P M [facility] Outpatient Attender: NENA AWAD MD 11/24/2019 11:43:00 A [facility] Outpatient Attender: NENA AWAD MD 11/19/2019 07:54:00 A [facility] Outpatient Attender: NENA AWAD MD 11/16/2019 07:31:01 A M EST [facility] Outpatient Attender: NENA AWAD MD 11/11/2019 03:05:02 P [facility] Outpatient Attender: NENA AWAD MD 11/11/2019 02:57:01 P [facility] Outpatient Attender: NENA AWAD MD 11/11/2019 02:55:03 P [facility] Outpatient Attender: NENA AWAD MD 11/11/2019 12:23:01 P [facility] Outpatient Attender: NENA AWAD MD 11/11/2019 12:14:01 P [facility] Outpatient Attender: NENA AWAD MD 11/11/2019 11:52:01 A [facility] Outpatient Attender: NENA AWAD MD 10/30/2019 11:57:01 A [facility] Outpatient Attender: NENA AWAD MD 10/30/2019 11:57:00 A [facility] Outpatient Attender: NENA AWAD MD 10/30/2019 11:56:02 A [facility] Outpatient Attender: NENA AWAD MD 10/30/2019 11:56:00 A [facility] Outpatient Attender: NENA AWAD MD 10/27/2019 04:22:01 P [facility] Outpatient Attender: NENA AWAD MD 10/27/2019 12:26:01 P [facility] Outpatient Attender: NENA AWAD MD 10/26/2019 04:25:00 P [facility] Outpatient Attender: NENA AWAD MD 10/25/2019 04:27:00 P [facility] Outpatient 10/19/2019 01:31:00 PM [facility] Outpatient Attender: NENA AWAD MD 10/15/2019 10:56:00 A [facility] Outpatient Attender: NENA AWAD MD FP 10/15/2019 10:55:01 A [facility] Outpatient Attender: NENA AWAD MD 10/15/2019 10:54:01 A [facility] Outpatient Attender: NENA AWAD MD 10/15/2019 09:28:52 A [facility] Outpatient Attender: NENA AWAD MD FP 10/15/2019 09:23:59 A [facility] Outpatient Attender: NENA AWAD MD FP 10/13/2019 09:01:11 P [facility] Outpatient Attender: NENA AWAD MD FP 10/13/2019 02:51:00 P [facility] Outpatient Attender: NENA AWAD MD FP 10/13/2019 02:47:00 P [facility] Outpatient Attender: NENA AWAD MD FP 10/13/2019 01:24:03 P [facility] Outpatient Attender: NENA AWAD MD FP 10/13/2019 01:24:02 P [facility] Outpatient Attender: NENA AWAD MD FP 10/13/2019 12:36:03 P [facility] Outpatient Attender: NENA AWAD MD FP 10/13/2019 11:20:01 A [facility] Outpatient Attender: NENA AWAD MD FP 10/08/2019 02:28:01 P [facility] Outpatient Attender: NENA AWAD MD FP 09/28/2019 02:41:01 P [facility] Outpatient Attender: NENA AWAD MD FP 09/27/2019 11:26:01 A [facility] Outpatient Attender: NENA AWAD MD FP 09/27/2019 10:39:02 A [facility] Outpatient Attender: NENA AWAD MD FP 09/23/2019 11:11:01 A [facility] Outpatient Attender: NENA AWAD MD FP 09/20/2019 11:10:00 A [facility] Insurance Providers Payer name Policy type / Coverage type Policy ID Covered libertarian ID Covered libertarian's relationship to ann Policy Ann Plan Information EMEDNY [id number] SP [id number] MEDICARE [id number] SP [id number] MEDICAID M [id number] S [id number] MEDICARE C [id number] S [id number] D08 MEDICAID [id number] SP [id number] Medicaid S [id number] S [id number] Medicare P [id number] S [id number] [id number] Medicaid S [id number] S [id number] Medicare [facility] Medicare Primary [id number] Self [id number] Medicare [facility] Medicare Primary [id number] Self [id number] SELF PAY ONLY [id number] SP [id number] Medicare S [id number] S [id number] [id number] MEDICARE [id number] SP [id number] A MEDICARE [id number] SP [id number] SELF PAY O [id number] S [id number] Problems, Conditions, and Diagnoses Code Display Name Description Problem Type Effective Dates Data Source(s) [id number] Pressure ulcer of right foot stage 2 Pre ssure ulcer of right foot stage 2 Problem 10/18/2020 12:00:00 AM EST - 11/02/2020 12:00:00 AM EST [facility] ([facility] R94.6 Abnormal results of thyroid function obinna dies Decreased thyroid stimulating hormone level 11/11/2019 12:13:57 PM [facility] E11.621 Type 2 diabetes mellitus with foot ulcer Foot ulcer due to type 2 diabetes mellitus 11/11/2019 12:13:57 PM [facility] Type 1 diabetes mellitus with diabetic [...] mellitus with foot ulcer 0 01:23:58 PM [facility] [id number] Onychomycosis Onychomycosis Problem 10/12/2019 12:00:00 AM EST [facility] ([facility] [id number] Multiple complications due to type 1 sharon [...] [facility] Results ID Date Data Source [id number] 11/11/2019 11:51:15 AM EST [facility] Measurements & CalculationsHeight: 72 inches (6 [...] three times a week and has [facility] Home nurse come in two days a week. He reports the wound is slowly improving. Has no concerns.Problem ReviewProblem List was reviewed and/or updated during this visit.Medication Reconciliation & ReviewMedication List was reviewed and/or updated during this visit, including review of any pdxk-mca-yznjber medications, herbal therapies, and/or supplements.Allergy ReviewAllergy List [...] Plan Problems:Added: Decreased thyroid stimulating hormone level (MWW49-Q09.6) Assessment: Instructions: Do not recommend any medicaiton at this time, repeat with next labs.Changed:From: Dx of Type 2 diabetes mellitus without complications (JZD78-H45.9) To: Foot ulcer due to type 2 diabetes mellitus (ESE08-V44.621)Assessed:Non-pressure chronic ulcer of other part of right foot with fat layer exposed & Type 2 diabetes mellitus with foot ulcer (ICD10- L97.512) Assessment: Instructions: Recommend continuing with [facility] and . Record releases signed for this. Diabetes appears adequately controlled with an A1c of 8.0 recently. Report to the ER for worsening symptoms, pain, or fever.Patient Instructions/Care Plan: Non-pressure chronic ulcer of other part of right foot with fat layer exposed & Type 2 diabetes mellitus with foot ulcer: Recommend continuing with [facility] and . Record releases signed for [...] SOLUTION PEN-INJECTORNOVOLOG FLEXPEN 100 UNIT/ML SUBCUTANEOUS SOLUTION HLO-[id number] GLUCOMETER W/DEVICE KITBD PEN NEEDLE MINI U/F 31G X 5 MMMedication Changes:Removed:METFORMIN HCL ER 500 MG ORAL TABLET EXTENDED RELEASE 24 HOUR-2 po bid Qty: 120[Tablet] Refills: 5Allergies:No Known Allergies (updated 11/11/2019) Orders:COMP METABOLIC PANEL [CPT-71022] CBC W/DIFF [CPT-58467] TSH [CPT-62640] T-4 free [CPT-54724] Adult - Ofc Vst, EST, Level III [CPT-65607] Follow-Up Return to clinic: in 4-[address] [facility] [address] Ansari for diabetesAdditional Follow-Up: insulin-dependent T2DM and slight hyperthyroidism; lab reviewClinical Visit Summary Completed] Name Value Range Interpretation Code Description Data Anais rce(s) Supporting Document(s) ID Date Data Source [id number] 10/27/2019 03:45:00 PM EST [facility] Name Value Range Interpretation Code Description Data Anais rce(s) Supporting Document(s) BG FASTING 177 mg/dL 70-100 H [facility] TSH 0.164 microintl units/mL 0.358-3.740 L [facility] ID Date Data Source [id number] 10/27/2019 03:45:00 PM EST [facility] Name Value Range Interpretation Code Description Data Anais rce(s) Supporting Document(s) HGBA1C 8.0 % N [facility] ID Date Data Source [id number] 10/27/2019 03:45:00 PM [facility] Name Value Range Interpretation Code Description Data Anais rce(s) Supporting Document(s) HCT 43.6 % 42.0-52.0 N [facility] HGB 14.3 g/dL 13.5-17.5 N [facility] MCH 32.8 G/DL pg 32.0-36.5 N [facility] MCHC 28.8 PG % 27.0-33.0 N [facility] PLATELETS 233 10 10*3/mm3 150-450 N [facility] RBC 4.97 10 10*6/mm3 4.30-6.10 N [facility] RDW 12.8 % 11.5-14.5 N [facility] WBC TOTAL 10.9 4.0-10.0 H [facility] ID Date Data Source [id number] 10/13/2019 11:28:16 AM [facility] Measurements & CalculationsHeight: 72 inches [...] during this visit, including review of any mncj-djq-rxpaijm medications, herbal therapies, and/or supplements.Allergy ReviewAllergy List [...] Type 2 diabetes mellitus with foot ulcer (LEV50-H52.512) Assessment: Instructions: You missed your appointment with [...] PEN-INJECTORNOVOLOG FLEXPEN 100 UNIT/ML SUBCUTANEOUS RENATO UTION YWN-HIRSSZJEX-COUH GLUCOMETER W/DEVICE KITBD PEN NEEDLE MINI U/F 31G X 5 MMMETFORMIN HCL ER 500 MG ORAL TABLET EXTENDED RELEASE 24 HOURMedication Changes:Refilled:ONETOUCH ULTRA BLUE IN VITRO STRIP-test qid Qty: 120[Strip] Refills: 5 Method: ElectronicAllergies:No Known Allergies (updated 12/21/2018) Orders:Adult - Ofc Vst, EST, Level III [CPT-96684] COMP METABOLIC PANEL [CPT-90307] HgBA1c [CPT-29907] LIPID PANEL [CPT-34014] TSH [CPT-38660] Medications:ONETOUCH ULTRA BLUE IN VITRO STRIP (GLUCOSE BLOOD) test qid #120[Strip] x 5 Route:IN VITRO Entered and Authorized by: Zohaib Ansari MD Method used: Electronically to [facility] (retail) [address] [place] [address] Note to Pharmacy: Route: INVITR; RxID: [id number] Administered/Entered:Vaccination Group: InfluenzaHistorical Source: Historical information - from other providerSeries: 1Vaccination: Unspecified FormulationMfr / Lot# / Exp.Date: Amt. Given / Route / Site: NDC / CVX: 88Administered Date: 10/13/2019VFC Eligibility: Not recordedVIS Date: Comments: Entered by: Elvira Rincon MA Name Value Range Interpretation Code Description Data Anais rce(s) Supporting Document(s) Procedure
[2020-11-14] MEDS ORDERED: LEVE1INJ5 SC (03:36)
[2020-11-14 03:38] VITALS: BP 131/75
[2020-11-14] MEDS ORDERED: FLUBLOK(EGG FREE)(QUAD)INFLUENZA VACC 0.5ML SYRINGE 18YRS & OLDER IM ONE (09:00)
--- NOTE | 2020-11-14 09:53 | MHHPEPDOC ---
General Legal Status: 9.39 Chief Complaint "I am seeing monkeys on the wall, who were talking to me. History of Present Illness HISTORY OF THE PRESENT ILLNESS: Patient is a 60 -year-old , male, who this is a 60-year-old male, single, never , with a history of multiple mental health admissions. The last admission was the patient came to the ER saying he was depressed and seeing monkey on the wall. This monkey. He has seen for over 10-15 years at times. He states the monkey calls his name. He states this is happened before. Psych history as mentioned, he has had multiple psychiatric admissions. He states the last time was in [place] or 2 years ago. Medical history. The patient is extremely hard of hearing. Psychiatric Review of Systems Depression (2 or more weeks): depressed mood, difficulty concentrating, suicidal thoughts Nemo (4 or more days of): denies Psychosis: auditory hallucination, visual hallucination, paranoia PTSD: denies Anxiety: situational anxiety Anxiety/ 6 months or more of: difficulty concentrating Past Psychiatric History Previous Psychiatric Diagnosis: Schizophrenia. Previous Psychiatric Admissions:, Numerous psychiatric admissions. Most recently 2015. According to patient. Suicide Attempts:. 2 suicide attempts in the long past. Psychiatric Follow-up:. No present follow-up or psychiatric treatment. Psychiatric medications: not Presently on psychiatric medications. Past Medical History Medical Problems Hearing loss Head Injury: No Seizures: No Hospitalizations: Yes Surgeries: Yes Family Medical/Psychiatric HX Psychiatric Disorders: Yes Suicide Attemps/Completions: Yes Addiction History denies Social History Childhood: No information at this time. Abuse/Trauma:. Information at this time. Current Living Situation:. Apartment [place]. Patient is paying for. Education: 10th grade. 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 Social Support: None noted. Legal:. Negative. Marital: Never . Mental Status Examination General Appearance: unkempt Build: average Demeanor: very figety Eye Contact: average Activity: average Speech: clear Mood: anxious, irritable Mood Euthymic Affect: appropriate Thought Process: logical/linear Thought Content (Delusions): none reported Thought Content (Other): internal-stimuli Thought Content (Aggressive): other Perception (Hallucinations): auditory, visual Perception (Other): none reported Cognition (Impairment of): none reported Cognition(Intelligence Est.): average Oriented: Awake Insight: poor Judgment: Fair Psychosis: Denies Diagnoses Paranoid schizophrenia A-FIB/CHADSVASC A-FIB History Current/History of A-Fib/PAF?: No Current PO Anticoag Therapy: No Age/Risk Factor Scoring CHADSVASC: CHADSVASC Response (Comments) Value Age Risk Factor Age < 65 years old 0 Gender Risk Factor Male 0 Hx of CHF No 0 Hx of HTN No 0 Hx of Stroke/TIA/or VTE No 0 Hx of Diabetes No 0 Hx of Vascular Disease No 0 Total 0 Treatment Treatment ordered: NONE Initial Treatment Plan 1. Patient was admitted on a [9.39] status. 2. Complete history was obtained. 3. With patients permission, family will be contacted and database will be expanded. 4. Patients medication regimen will be reviewed and changed accordingly. 5. Patient will be provided with protected environment. 6. Patient will be treated with individual, group, and milieu therapies. 7. Patient will receive supportive psych-education. 8. Discharge planning will commence immediately. 9. Outpatient follow-up treatment will be strongly recommended. 10. The initial treatment plan will focus initially on: * Depression. * Risk for suicide. ESTIMATED LENGTH OF STAY: - DAYS. TIME SPENT COUNSELING AND COORDINATING INITIAL CARE: minutes. Vital Signs Vital Signs Date Time Temp Pulse Resp B/P (MAP) Pulse Ox O2 Delivery O2 Flow Rate FiO2 11/14/20 03:38 98.1 82 16 131/75 (93) 95 Room Air Laboratory Data 24H Labs Laboratory Tests 2 11/13/20 18:35: Urine Opiates Screen NEGATIVE, Urine Methadone Screen NEGATIVE, Urine Barbiturates Screen NEGATIVE, Urine Phencyclidine Screen NEGATIVE, Urine Amphetamines Screen NEGATIVE, Urine Benzodiazepines Screen NEGATIVE, Urine Cocaine Metabolite Screen NEGATIVE, Urine Cannabinoids Screen POSITIVEH 11/13/20 19:00: Nucleated Red Blood Cells % (auto) 0.0, Anion Gap 6L, Glomerular Filtration Rate > 60.0, Calcium Level 8.8, Total Bilirubin 0.2, Direct Bilirubin < 0.1, Aspartate Amino Transf (AST/SGOT) 5L, Alanine Aminotransferase (ALT/SGPT) 22, Alkaline Phosphatase 97, Total Protein 7.0, Albumin 4.1, Albumin/Globulin Ratio 1.4, Thyroid Stimulating Hormone (TSH) 0.214L, Salicylates Level 1.7L, Acetaminophen Level < 2.0L, Ethyl Alcohol Level 0.003 CBC/BMP Laboratory Tests 11/13/20 19:00 Medications Scheduled Insulin Detemir (Levemir Flextouch) 100 Unit/1 Ml Insuln.pen, 45 UNIT SC QHS for ., (Reported) Allergies Coded Allergies: No Known Allergies (Unverified , 06/06/20) ADRIEN JUAREZ MD Nov 14, 2020 09:51
[2020-11-14] MEDS ORDERED: DEXTROSE 50% 50 ML SYRINGE IV PRN (17:15)
[2020-11-14] MEDS ORDERED: GLUCOSE 4GM CHEW TABLET PO PRN (17:15)
[2020-11-14] MEDS ORDERED: GLUCAGON INJ 1MG VIAL SC PRN (17:15)
--- NOTE | 2020-11-14 17:20 | HPEPDOC ---
[facility] Medical History & Physical Date of Admission Nov 14, 2020 Date of Service: Nov 14, 2020 History and Physical CHIEF COMPLAINT: Visual/auditory hallucination HISTORY OF PRESENT ILLNESS: Mr. Yuan is a 60 year old male with IDDM who is here for visual/auditory hallucination. Today, he is feeling physically well. He tells me he hasn't had an auditory hallucination today. He is hard of hearing, but otherwise denies any fever/chills, dyspnea, chest pain, abdominal pain, or dysuria. He did report having a rash on his gluteus wilman which appears fungal in nature. PAST MEDICAL HISTORY: 1. Insulin dependent diabetes mellitus 2. Congenital hearing impairment 3. History of right foot cellulitis/osteomyelitis with surgical debridement x3 PAST SURGICAL HISTORY: 1. Ear surgery 2. Right foot cellulitis/osteomyelitis with surgical debridement x3 SOCIAL HISTORY: Tobacco use: Current smoker ETOH: Occasional drinker Illicit drug use: Uses marijuana FAMILY HISTORY: Father: Denies knowledge of father's medical history Mother: Denies knowledge of mother's medical history ALLERGIES: Please see below. REVIEW OF SYSTEMS: CONSTITUTIONAL: Denies any fever or chills. Denies lightheadedness or dizziness. ENT: Denies sore throat. RESPIRATORY: Denies shortness of breath. Denies cough. CARDIOVASCULAR: Denies chest pain. GASTROINTESTINAL: Denies abdominal pain. Denies diarrhea. GENITOURINARY: Denies dysuria. CUTANEOUS: Reports rash on gluteus wilman. MUSCULOSKELETAL: Denies muscle weakness. NEUROLOGICAL: Denies paresthesias. PSYCHOLOGICAL: Denies anxiety. Denies depression. HOME MEDICATIONS: Please see below. PHYSICAL EXAMINATION: VITAL SIGNS: Temperature 97.3, pulse 78, respiratory rate 20, blood pressure 146/78, pulse oximetry 95 % on room air. GENERAL: Comfortable, in no apparent distress. HEENT: Head normocephalic/atraumatic, EOMI, sclera clear. NECK: Supple, no JVD. RESPIRATORY: Lungs clear to auscultation bilaterally, no rales, wheeze or rhonchi. CARDIOVASCULAR: Regular rate and rhythm. ABDOMEN: Soft, nontender, no guarding or rebound tenderness. Normal bowel sounds. MUSCLE SKELETAL: Muscle strength 5/5 in all extremities. NEUROLOGICAL: CN 312 grossly intact, no focal deficits noted. PSYCHOLOGICAL: Normal mood and affect LABORATORY DATA: See below. IMAGING: CT head No acute abnormality or significant change. ASSESSMENT and PLAN: 1. Auditory and visual hallucinations Being managed in the inpatient mental health unit 2. Diabetes mellitus Reduce basal insulin from 45 units to 20 units as patient diet will be different here than at home. Sliding scale insulin 3. Fungal infection Appears to have fungal infection is gluteal region We'll start patient on topical antifungals Thank you for consulting us. We will sign off at this time. If there is any further questions or concerns please do not hesitate to contact us. Vital Signs Vital Signs Date Time Temp Pulse Resp B/P (MAP) Pulse Ox O2 Delivery O2 Flow Rate FiO2 11/14/20 03:38 98.1 82 16 131/75 (93) 95 Room Air Laboratory Data Labs 24H Laboratory Tests 2 11/13/20 18:35: Urine Opiates Screen NEGATIVE, Urine Methadone Screen NEGATIVE, Urine Barbiturates Screen NEGATIVE, Urine Phencyclidine Screen NEGATIVE, Urine Amphetamines Screen NEGATIVE, Urine Benzodiazepines Screen NEGATIVE, Urine Cocaine Metabolite Screen NEGATIVE, Urine Cannabinoids Screen POSITIVEH 11/13/20 19:00: Nucleated Red Blood Cells % (auto) 0.0, Anion Gap 6L, Glomerular Filtration Rate > 60.0, Calcium Level 8.8, Total Bilirubin 0.2, Direct Bilirubin < 0.1, Aspartate Amino Transf (AST/SGOT) 5L, Alanine Aminotransferase (ALT/SGPT) 22, Alkaline Phosphatase 97, Total Protein 7.0, Albumin 4.1, Albumin/Globulin Ratio 1.4, Thyroid Stimulating Hormone (TSH) 0.214L, Salicylates Level 1.7L, Acetaminophen Level < 2.0L, Ethyl Alcohol Level 0.003 CBC/BMP Laboratory Tests 11/13/20 19:00 Microbiology Microbiology 11/14/20 Respiratory Virus Panel (PCR) (TAMRA) - Final, Complete Home Medications Scheduled Insulin Detemir (Levemir Flextouch) 100 Unit/1 Ml Insuln.pen, 45 UNIT SC QHS for . Allergies Coded Allergies: No Known Allergies (Unverified , 06/06/20) A-FIB/CHADSVASC A-FIB History Current/History of A-Fib/PAF?: No Age/Risk Factor Scoring CHADSVASC: CHADSVASC Response (Comments) Value Age Risk Factor Age < 65 years old 0 Gender Risk Factor Male 0 Hx of CHF No 0 Hx of HTN No 0 Hx of Stroke/TIA/or VTE No 0 Hx of Diabetes No 0 Hx of Vascular Disease No 0 Total 0 NATALIE SINHA DO Nov 14, 2020 14:50
[2020-11-14] MEDS: HumaLOG INSULIN (NovoLOG) PER UNIT SC SCH ×2 (17:30→20:35)
[2020-11-14 18:55] VITALS: BP 146/78
[2020-11-14] MEDS: CLOTRIMAZOLE 1% TOPICAL CREAM 30GM TOP SCH (20:35)
[2020-11-14] MEDS: LEVEMIR (INSULIN DETEMIR) 1 UNITS/0.01ML SC SCH (20:35)
[2020-11-15 06:00] VITALS: BP 154/83
[2020-11-15] MEDS: HumaLOG INSULIN (NovoLOG) PER UNIT SC SCH ×4 (06:37→21:00)
[2020-11-15] MEDS: CLOTRIMAZOLE 1% TOPICAL CREAM 30GM TOP SCH ×2 (09:27→21:20)
--- NOTE | 2020-11-15 16:32 | MHIPNPDOC ---
[facility] Progress Note Progress Note DATE OF SERVICE: 11/15/20 HISTORY: Patient is a 60 -year-old , male, who this is a 60-year-old male, single, never , with a history of multiple mental health admissions. He states, "I am seeing monkeys on the wall, who were talking to me. The patient came to the ER saying he was depressed and seeing monkey on the wall. This monkey. He has seen for over 10-15 years at times. He states the monkey calls his name. He states this is happened before. Psych history as mentioned, he has had multiple psychiatric admissions.His last admission was 2016 in [place]. He states the last time was in [place] or 2 years ago. The patient is extremely hard of hearing. VITAL SIGNS: See below. CURRENT MEDICATIONS: See below. MENTAL STATUS EXAMINATION: Patient is a 60-year old Single, Disabled, Domiciled male, who is self presented to the ED with complaints of visual hallucinations General Appearance: unkempt hair but patient showered in the AM Build: average Demeanor: calm and cooperative Eye Contact: average Activity: average Speech: clear Mood: Euthymic Affect: appropriate Thought Process: logical/linear Thought Content (Delusions): none reported Thought Content (Other): internal-stimuli Thought Content (Aggressive): other Perception (Hallucinations): auditory, visual Perception (Other): none reported Cognition (Impairment of): none reported Cognition(Intelligence Est.): average Oriented: Awake Insight: Fair Judgment: Fair Psychosis: Denies DIAGNOSES: Unspecified Psychotic Disorder ASSESSMENT: Patient is hard of hearing but was able to read lips. Provider sat a distance away without the mask over lips. He reports milder depressive symptoms and has not seen the "monkey" in two days. Patient states "I feel bett er.: He reports that his stressors are his housing situation and that his room in the building he is in is very small. He reports that he does not want to live in the building due to crime and drug problem. He wants to speak to his classification case manager but does not remember the number and says he lost his phone and has not been able to bring these concerns to the classification case manager. "I want to be out of this building, it causes me depression." MANAGEMENT PLAN: Continue all medications as ordered, will attempt to send communication to classification case manager about patient's complaints about his housing, discharge on Friday TIME SPENT: 25 minutes. Vital Signs Vital Signs Date Time Temp Pulse Resp B/P (MAP) Pulse Ox O2 Delivery O2 Flow Rate FiO2 11/15/20 06:00 97.8 78 20 154/83 (106) 96 11/14/20 03:38 Room Air Laboratory Data 24H Labs Laboratory Tests 2 11/14/20 20:33: Bedside Glucose (Misc Panel) 258H 11/15/20 06:21: Bedside Glucose (Misc Panel) 207H 11/15/20 11:39: Bedside Glucose (Misc Panel) 225H Current Medications Current Medications Medications (Trade) Dose Ordered Sig/Dar Route PRN Reason Start Time Stop Time Status Last Admin Dose Admin Acetaminophen (Tylenol Tab) 650 mg Q6HP PRN PO HEADACHE or DISCOMFORT 11/14/20 02:45 Al Hydrox/Mg Hydrox/Simethicone (Mylanta) 30 ml Q4HP PRN PO HEARTBURN/INDIGESTION 11/14/20 02:45 Clotrimazole (Lotrimin) Sacral area BID TOP 11/14/20 21:00 11/15/20 09:27 Dextrose (Dextrose 50%) 25 ml ASDIRECTED PRN IV SEE LABEL COMMENTS 11/14/20 17:15 Glucagon (Glucagon) 1 mg ASDIRECTED PRN SC SEE LABEL COMMENTS 11/14/20 17:15 Glucose (Glucose) 16 GM ASDIRECTED PRN PO SEE LABEL COMMENTS 11/14/20 17:15 Home Med (Med Rec Complete!) ASDIRECTED XX 11/14/20 03:45 11/14/20 03:38 DC Insulin Detemir (Levemir Insulin) 20 units QHS SC 11/14/20 21:00 11/14/20 20:35 Insulin Human Lispro (HumaLOG INSULIN) SEE PROTOCOL TABLE AC SC 11/14/20 17:30 11/15/20 11:41 Insulin Human Lispro (HumaLOG INSULIN) SEE PROTOCOL TABLE QHS SC 11/14/20 21:00 11/14/20 20:35 Magnesium Hydroxide (Milk Of Magnesia) 30 ml DAILYPRN PRN PO CONSTIPATION 11/14/20 02:45 Trazodone HCl (Desyrel) 50 mg QHSP PRN PO INSOMNIA 11/14/20 02:45 Allergies Coded Allergies: No Known Allergies (Unverified , 06/06/20) LISA FIELDS NP Nov 15, 2020 16:26
[2020-11-15 17:53] VITALS: BP 117/57
[2020-11-15] MEDS: LEVEMIR (INSULIN DETEMIR) 1 UNITS/0.01ML SC SCH (21:21)
[2020-11-16 06:00] VITALS: BP 158/98
[2020-11-16] MEDS: HumaLOG INSULIN (NovoLOG) PER UNIT SC SCH (07:06)
[2020-11-16] MEDS: CLOTRIMAZOLE 1% TOPICAL CREAM 30GM TOP SCH (09:01)
[2020-11-16] MEDS ORDERED: CLOTR1CR TOP (09:34)
--- NOTE | 2020-11-16 14:09 | MHDSPDOC ---
[facility] Discharge Summary Discharge Summary DATE OF ADMISSION: Nov 14, 2020 at 02:39 DATE OF DISCHARGE: Nov 16, 2020 at 11:50 DISCHARGE DIAGNOSES: Unspecified Psychotic Disorder REASON FOR ADMISSION: Patient is a 60 -year-old , male, who this is a 60-year-old male, single, never , with a history of multiple mental health admissions. He states, "I am seeing monkeys on the wall, who were talking to me. The patient came to the ER saying he was depressed and seeing monkey on the wall. This monkey. He has seen for over 10-15 years at times. He states the monkey calls his name. He states this is happened before. Psych history as mentioned, he has had multiple psychiatric admissions. His last admission was 2015 in [place]. Not currently prescribed any psychiatric medications. CONSULTANTS INVOLVED:See Hospitalist Medical H + P TREATMENT AND PROGRESS ON THE UNIT: Patient was admitted to the [facility] on a 9.39 legal status he was afforded the following treatment modalities: 1) Individual Therapy 2) Group Therapy 3) Medication Management 4) Milieu Therapy 5) Safe Environment HOSPITAL COURSE: Patient was admitted [facility] on a 9.39 legal status for compla ints of visual hallucinations. When I met with this patient for the first time yesterday he reported that he had no more visions o the moneys, he had no complaints of depression, suicidal ideation, homicidal ideation or auditory hallucinations. He had no other abnormal psychiatric symptoms. He complained about his housing stating that he had lost his phone and that he had been unable to speak to his special education case manager about his desire to move from this building. He was not requesting any psychiatric medications and declined when it was evaluated. At this interview, he wants to be discharged. He has an appointment with his special education case manager tomorrow and he will address the phone. I encouraged the patient to consider a medication that may have helped him in the past, he declined. DISCHARGE ASSESSMENT: In today's interview, patient is alert and oriented, pts dress is appropriate. Hygiene and grooming is well-kempt. Smiles on approach and is pleasant and engaged in the interview. Denies depression and anxiety. Denies suicidal and homicidal ideation, planning or intent. Denies and is not observed with issa, psychotic symptoms of delusions, bizarre thinking, obsessions, paranoia, ruminations illogical thoughts, flight of ideas or having poor insight and judgement. Patient has normal mentation, declines further hospitalization on a voluntary status and meets criteria for discharge today. Patient encouraged to return to hospital if his symptoms worsen or change and encouraged to call unit if he/she/they needs to speak to provider for questions regarding medications or care. MENTAL STATUS EXAMINATION ON DISCHARGE: Patient is a 60-year old Single, Disabled, Domiciled male, who is self presented to the ED with complaints of visual hallucinations General Appearance: unkempt hair but patient showered in the AM Build: average Demeanor: calm and cooperative Eye Contact: average Activity: average Speech: clear Mood: Euthymic Affect: appropriate Thought Process: logical/linear Thought Content (Delusions): none reported Thought Content (Other): internal-stimuli Thought Content (Aggressive): other Perception (Hallucinations): auditory, visual Perception (Other): none reported Cognition (Impairment of): none reported Cognition(Intelligence Est.): average Oriented: Awake Insight: Fair Judgment: Fair Psychosis: Denies MEDICATIONS ON DISCHARGE: Patient declined prescriptions for psychiatric medications. See Medication Reconciliation PLAN/FOLLOWUP ARRANGEMENTS: [facility] The amount of time spent in the coordination of care for this patient was approximately 30 minutes. Vital Signs/I&Os Vital Signs Date Time Temp Pulse Resp B/P (MAP) Pulse Ox O2 Delivery O2 Flow Rate FiO2 11/16/20 06:00 97.5 77 18 158/98 (118) 99 Room Air Laboratory Data Labs 24H Laboratory Tests 2 11/15/20 16:52: Bedside Glucose (Misc Panel) 217H 11/15/20 21:15: Bedside Glucose (Misc Panel) 207H 11/16/20 06:27: Bedside Glucose (Misc Panel) 183H Microbiology Microbiology 11/14/20 Respiratory Virus Panel (PCR) (TAMRA) - Final, Complete Medications Scheduled Clotrimazole (Clotrimazole) 30 Gm Cream..g., 1 APPLIC TOP BID for Fungal, #1 Apply to gluteal region Insulin Detemir (Levemir Flextouch) 100 Unit/1 Ml Insuln.pen, 45 UNIT SC QHS for ., (Reported) Allergies Coded Allergies: No Known Allergies (Unverified , 06/06/20) LISA FIELDS NP Nov 16, 2020 13:55
== END 2020-11-16 11:50 | disposition home or self-care (01) | DRG 885 ==
LOC: M ED 18:28 → M ED INP 11-14 02:39 → M PSY 11-14 03:17
PROVIDERS: ADMIT Psychiatry & Neurology Psychiatry; ATTEND Psychiatry & Neurology Psychiatry
DX: F29 Unspecified psychosis not due to a substance or known physiological condition (principal); E11.9 Type 2 diabetes mellitus without complications; F17.200 Nicotine dependence, unspecified, uncomplicated; B36.9 Superficial mycosis, unspecified; H91.93 Unspecified hearing loss, bilateral; Z79.4 Long term (current) use of insulin

== ENCOUNTER 2020-12-03 11:22 | Emergency (ER) | payer MEDICARE, MEDICAID ==
[~2020-12-03] VITALS: Ht 182.9 cm; Wt 105.0 kg
[2020-12-03 11:25] VITALS: BP 135/76
== END 2020-12-03 12:03 | disposition home or self-care (01) ==
LOC: M ED 11:22
DX: Z76.0 Encounter for issue of repeat prescription (principal); E11.9 Type 2 diabetes mellitus without complications; F41.9 Anxiety disorder, unspecified; F33.9 Major depressive disorder, recurrent, unspecified; F17.200 Nicotine dependence, unspecified, uncomplicated; Z79.4 Long term (current) use of insulin

== ENCOUNTER 2021-02-13 23:40 | Emergency (ER) | payer MEDICARE, MEDICAID ==
[~2021-02-13] VITALS: Ht 182.9 cm; Wt 113.6 kg
[2021-02-13 23:48] VITALS: BP 139/79
== END 2021-02-14 02:26 | disposition left against medical advice (07) ==
LOC: M ED 23:40
DX: Z53.21 Procedure and treatment not carried out due to patient leaving prior to being seen by health care provider (principal)

== ENCOUNTER 2021-02-17 11:26 | Inpatient (IN) | payer MEDICARE, MEDICAID ==
[~2021-02-17] VITALS: Ht 182.9 cm; Wt 98.3 kg
--- NOTE | 2021-02-17 12:15 | REP ---
INDICATION: R-foot pain, hx of osteo, R-1st MTP with medial drainage COMPARISON: 08/12/2019 TECHNIQUE: AP, lateral, bilateral oblique views right foot. FINDINGS: Degenerative changes primarily noted at the 1st metatarsophalangeal joint including joint space narrowing, subchondral sclerosis, marginal spurring and overlying soft tissue swelling. Remainder of the examination appears normal. IMPRESSION: Degenerative changes and swelling noted at the 1st MTP joint. Findings are nonspecific. <Electronically signed by Hansel Malave > 02/17/21 [id number]
[2021-02-17 12:29] LABS: BASO # 0.1 10^3/uL (0.0-0.2); BASO % 0.4 % (0.0-1.0); EOS # 0.3 10^3/uL (0.0-0.5); EOS % 2.1 % (0.0-3.0); HEMATOCRIT 45.2 % (42.0-52.0); HEMOGLOBIN 14.8 g/dl (13.5-17.5); LYMPH # 2.3 10^3/uL (1.5-5.0); LYMPH % 16.9 % (24.0-44.0); MEAN CORPUSCULAR HEMOGLOBIN 28.5 pg (27.0-33.0); MEAN CORPUSCULAR HGB CONC 32.7 g/dl (32.0-36.5); MEAN CORPUSCULAR VOLUME 86.9 fl (80.0-96.0); MONO # 0.9 10^3/uL (0.0-0.8); MONO % 6.6 % (2.0-8.0); NEUTROPHILS # 10.2 10^3/uL (1.5-8.5); NEUTROPHILS % 73.7 % (36.0-66.0); PLATELET COUNT, AUTOMATED 268 10^3/uL (150-450); WHITE BLOOD COUNT 13.9 10^3/uL (4.0-10.0)
[2021-02-17 12:52] LABS: ALBUMIN 3.6 GM/DL (3.2-5.2); BILIRUBIN,DIRECT 0.1 MG/DL (0.0-0.2); BILIRUBIN,TOTAL 0.4 MG/DL (0.2-1.0); C REACTIVE PROTEIN QUANTITATIV 6.25 MG/DL (0.00-0.30); TOTAL PROTEIN 7.3 GM/DL (6.4-8.2)
[2021-02-17 12:57] LABS: BLOOD UREA NITROGEN 14 MG/DL (7-18); CALCIUM LEVEL 8.7 MG/DL (8.8-10.2); CARBON DIOXIDE LEVEL 30 MEQ/L (21-32); CHLORIDE LEVEL 101 MEQ/L (98-107); CREATININE FOR GFR 0.83 MG/DL (0.70-1.30); GLOMERULAR FILTRATION RATE > 60.0 (>49); GLUCOSE, FASTING 216 MG/DL (70-100); POTASSIUM SERUM 3.5 MEQ/L (3.5-5.1); SODIUM LEVEL 135 MEQ/L (136-145)
[2021-02-17] MEDS ORDERED: CLOT1CRE27 TOP (13:26)
[2021-02-17 14:25] LABS: RSV AMPLIFICATION NEGATIVE (NEGATIVE)
[2021-02-17] MEDS ORDERED: ONDANSETRON 4MG/2ML VIAL IV PRN (15:35)
[2021-02-17] MEDS ORDERED: MOM 30ML SUSPENSION UDC PO PRN (15:35)
[2021-02-17] MEDS ORDERED: GLUCOSE 4GM CHEW TABLET PO PRN (15:50)
[2021-02-17] MEDS ORDERED: DEXTROSE 50% 50 ML SYRINGE IV PRN (15:50)
[2021-02-17] MEDS ORDERED: GLUCAGON INJ 1MG VIAL SC PRN (15:50)
[2021-02-17 17:00] VITALS: BP 136/79
--- NOTE | 2021-02-17 17:15 | HPEPDOC ---
[facility] Medical History & Physical Date of Admission February 17, 2021 Date of Service: February 17, 2021 Attending Physician: KIRAN NINO MD History and Physical CHIEF COMPLAINT: Right foot pain, swelling and redness HISTORY OF PRESENT ILLNESS: Patient is a 60-year-old male with a past medical hi story significant for insulin dependent diabetes mellitus type 2, congenital hearing impairment, schizophrenia, medication noncompliance, and history of right foot cellulitis with osteomyelitis, status post surgical debridement in 2019 who presented to the [facility] emergency department with complaint of right foot pain, swelling and redness for 1 week. The history of present illness was somewhat difficult to obtain as the patient is difficult to redirect. He denies any fevers or chills. He denies any nausea or vomiting. He denies any chest pain, palpitations or shortness of breath. He states that his foot is painful and he understands that he needs to stay and get it looked at. In the emergency room and the patient was vitally stable. He was afebrile. He did have a leukocytosis and elevated CRP. Right foot imaging did not show any specific signs of osteomyelitis. However, the extent of his cellulitis is concerning for possible abscess formation which would be need for incision and drainage. Hospitalist service was consulted and the patient was admitted for further evaluation and management. PAST MEDICAL HISTORY: 1. Diabetes mellitus type II on insulin 2. Congenital hearing impairment. 3. Schizophrenia/history of multiple psychiatric admissions 4. Medical noncompliance 5. Right foot cellulitis and osteomyelitis status post surgical debridement in 2019 PAST SURGICAL HISTORY: 1. Mastoidectomy 2. Right foot surgical debridement 2018 SOCIAL HISTORY: Patient lives by himself at home. He is a current smoker and smokes approximately 1-1/2 packs per day. He denies any alcohol, IV or illicit drug use. He does not have a primary care physician FAMILY HISTORY: Patient's mother and father both . He has one brother was alive and living in [place]. He has a sister who is alive and living in [place]. His sister has a history of diabetes mellitus type II ALLERGIES: Please see below. REVIEW OF SYSTEMS: CONSTITUTIONAL: Denies fevers chills, unintentional weight loss or weight gain. Denies night sweats. HEENT:. Denies dysphagia or odynophagia. CARDIOVASCULAR:, Denies Chest pain, palpitations or feelings of the heart racing. Denies chest pressure RESPIRATORY:. Denies shortness of breath. Denies wheezing. Denies cough. Denies hemoptysis. GASTROINTESTINAL:, Denies Abdominal pain, nausea, vomiting, diarrhea or constipation. GENITOURINARY: Denies dysuria or increased frequency. SKIN:. Admits to right foot redness. Denies any other rashes or lesions MUSCULOSKELETAL:. Denies any muscle weakness. Denies any muscle pain NEUROLOGICAL:. Denies any changes in speech or gait. PSYCHIATRIC: Denies any current depression or anxiety. ENDOCRINE:. Admits to history of diabetes. Denies any heat intolerance or cold intolerance. HEMATOLOGIC/LYMPHATIC: Denies any history of easy bruising or bleeding. Denies any history of DVT or pulmonary embolism. HOME MEDICATIONS: Please see below. PHYSICAL EXAMINATION: VITAL SIGNS: Temperature 96.8, pulse 81, respiratory rate 20, blood pressure 159/76, pulse oximetry 98 % on room air. GENERAL APPEARANCE: Patient is awake, alert and oriented. He does not appear in acute distress. He is sitting on edge of bed comfortably. HEENT: Atraumatic. Normocephalic. Eyes are nonicteric. Trachea is midline mucous members are pink and moist. Dentition is poor. CARDIOVASCULAR:. Normal S1, S2, irregularly irregular rhythm with a regular rate.. No clicks rubs or murmurs auscultated LUNGS:. Clear breath sounds bilaterally with good respiratory effort. No wheezes rhonchi or rales. Symmetric chest expansion. ABDOMEN:. Soft nondistended, nontender. Normoactive bowel sounds throughout. EXTREMITIES: Swelling and erythema surrounding the metacarpophalangeal joint. There is an area of ulceration draining purulent fluid on the medial side of the right great toe. There is warmness and tenderness to touch. NEUROLOGICAL: No focal neurological deficits PSYCHIATRIC: Patient appears anxious and agitated at times during the exam LABORATORY DATA: See below. IMAGING: INDICATION: R-foot pain, hx of osteo, R-1st MTP with medial drainage COMPARISON: 08/12/2019 TECHNIQUE: AP, lateral, bilateral oblique views right foot. FINDINGS: Degenerative changes primarily noted at the 1st metatarsophalangeal joint including joint space narrowing, subchondral sclerosis, marginal spurring and overlying soft tissue swelling. Remainder of the examination appears normal. IMPRESSION: Degenerative changes and swelling noted at the 1st MTP joint. Findings are nonspecific. MICROBIOLOGY: Please see below. ASSESSMENT: Patient is a 60-year-old male with a past medical history severe for diabetes mellitus type 2, schizophrenia, congenital hearing impairment and previous right foot cellulitis with osteomyelitis status post surgical debridement 2018 who presented to [facility] emergency Department with right foot pain, swelling and redness and found to have likely cellulitis and possibly osteomyelitis. PLAN: 1. Right foot cellulitis, possible osteomyelitis. -Patient presenting with right foot swelling, redness and pain. X-ray does not demonstrate any definitive osteomyelitis, but does show degenerative changes and swelling noted in the first MTP joint. A Gram stain and culture was taken by the ED provider. The Gram stain only showed few gram-positive cocci. However, with deeper incision and drainage likely to obtain adequate culture. -Will obtain MRI of the foot to examine for osteomyelitis versus possible abscess formation as well. -Will start Zosyn. Will hold off on vancomycin for now as patient has no previous history of MRSA. -MRSA PCR screen -Blood cultures are currently pending 2 -Patient normally sees Dr. Skaggs, however, he is currently not available. Therefore Dr. Ross was consulted for evaluation and potential incision and drainage of the patient's right foot. -Podiatry consulted. Assistance appreciated -CRP elevated at 6.25. Will trend CRP to ensure adequate antibiotic coverage -WBC at 13.9. Will trend. -Patient will be made nothing by mouth after midnight for potential incision and drainage. 2. Diabetes mellitus type 2 -Patient is a history of poorly controlled diabetes mellitus type 2. -States that he takes Levemir insulin outpatient. However, he is unsure of who his primary care provider is and states he hasn't seen them in years. -Will obtain an A1c -Will continue a consistent carbohydrate diet until midnight. When patient is made Nothing by mouth for procedure -Sliding-scale coverage ACHS 3. Tobacco abuse -Nicotine gum. Patient states that he cannot use patches 4. Abnormal heart rhythm on physical exam -Patient was noted to have an irregularly irregular heart rhythm on exam. EKG has been ordered which demonstrated a sinus tachycardia, although on repeat physical exam. The patient's rhythm sounds regular. Possible the patient has gone in and out of atrial fibrillation. Therefore, we will place the patient on telemetry monitoring to see if he has undiagnosed atrial fibrillation. -If he is found to have atrial fibrillation, then will have to weigh the risks and benefits of full anticoagulation before or after he receives incision and drainage. -For now, continue telemetry monitoring 5. DVT prophylaxis -Lovenox Vital Signs Vital Signs Date Time Temp Pulse Resp B/P (MAP) Pulse Ox O2 Delivery O2 Flow Rate FiO2 02/17/21 15:04 97.1 87 18 140/73 (95) 99 Room Air Laboratory Data Labs 24H Laboratory Tests 2 02/17/21 12:03: Immature Granulocyte % (Auto) 0.3, Neutrophils (%) (Auto) 73.7H, Lymphocytes (%) (Auto) 16.9L, Monocytes (%) (Auto) 6.6, Eosinophils (%) (Auto) 2.1, Basophils (%) (Auto) 0.4, Neutrophils # (Auto) 10.2H, Lymphocytes # (Auto) 2.3, Monocytes # (Auto) 0.9H, Eosinophils # (Auto) 0.3, Basophils # (Auto) 0.1, Nucleated Red Blood Cells % (auto) 0.0, Anion Gap 4L, Glomerular Filtration Rate > 60.0, Calcium Level 8.7L, Total Bilirubin 0.4, Direct Bilirubin 0.1, Aspartate Amino Transf (AST/SGOT) 7, Alanine Aminotransferase (ALT/SGPT) 16, Alkaline Phosphatase 121H, C-Reactive Protein, Quantitative 6.25H, Total Protein 7.3, Albumin 3.6, Albumin/Globulin Ratio 1.0 02/17/21 12:16: POC Lactate (Misc Panel) 0.89 02/17/21 13:32: Coronavirus (COVID-19)(PCR) NEGATIVE, Influenza Type A (RT-PCR) NEGATIVE, Influenza Type B (RT-PCR) NEGATIVE, Respiratory Syncytial Virus (PCR) NEGATIVE CBC/BMP Laboratory Tests 02/17/21 12:03 Microbiology Microbiology 02/17/21 Blood Culture, Received Pending 02/17/21 Gram Stain - Final, Resulted 02/17/21 Wound Culture, Resulted Pending 02/17/21 Blood Culture, Received Pending Home Medications Scheduled Clotrimazole (Clotrimazole) 1% 30GM Cream..g., 1 APLCT TOP BID APPLY TO GLUTEAL REGION Insulin Detemir (Levemir Flextouch) 100 Unit/1 Ml Insuln.pen, 45 UNIT SC DAILY Allergies Coded Allergies: No Known Allergies (Unverified , 06/06/20) GME ATTESTATION My faculty preceptor for this patient encounter was physically present during the encounter and was fully available. All aspects of the patient interview, e xamination, medical decision making process, and medical care plan development were reviewed and approved by the faculty preceptor. The faculty preceptor is aware and concurs with the plan as stated in the body of this note and will attest to such by his/her cosignature. ATTENDING NOTE I personally examined the patient, reviewed the studies and discussed the plan with the resident physician as detailed above. Briefly, Mr. Yuan is a diabetic with a remote history of a Right heel wound c/b osteomyelitis in 2019, who follows with Dr. Skaggs in the outpatient setting who was LTFU and had a pending appointment on 02/26/2021 but has a R medial foot by the medial malleolus wound that is draining semi-purulent material with surrounding erythema and swelling and is increasingly painful that he decided to present to the ED evaluation and was found to have at least cellulitis with an infected wound with c/f potential osteomyelitis who is now being admitted to medicine for IV antibiotic therapy, MRI of foot and podiatry evaluation. A-FIB/CHADSVASC A-FIB History Current/History of A-Fib/PAF?: No ADRIANA KOHLER DO February 17, 2021 17:15 KIRAN NINO MD February 18, 2021 08:03
--- NOTE | 2021-02-17 17:16 | ECGEPIP ---
[facility] Test Date: 2021-02-17 Pat Name: LUCIA MCNAIR Department: Room: 0103 Gender: Male Clinical Dermatologist: jayesh : 1960 Requested By: ADRIANA KOHLER Order Number: [id number] Reading MD: Brock Gilliland Measurements Intervals [place] Rate: 108 P: 53 [place]: 192 QRS: 35 QRSD: 86 T: 30 QT: 320 QTc: 428 Interpretive Statements Sinus tachycardia Left atrial enlargement suspected Septal infarct , age undetermined Compared to prior tracing of 02/09/2020, [place] interval is shorter Electronically Signed on 02-17-2021 17:16:12 EDT by Brock Gilliland
[2021-02-17] MEDS: PIPERACILLIN/TAZOBACTAM SOD 3.375 GM in D5W MINI-BAG PLUS 50 ML IV SCH ×2 (17:51→23:47)
[2021-02-17] MEDS: HumaLOG INSULIN (NovoLOG) PER UNIT SC SCH ×2 (17:51→21:00)
[2021-02-17] MEDS: NICOTINE POLACRILEX 2 MG GUM PO PRN (18:34)
[2021-02-17] MEDS: MORPHINE 2 MG/ML 1ML VIAL (J2270) IV PRN (19:30)
[2021-02-17] MEDS: ACETAMINOPHEN TAB 650MG DOSE (2X325MG) PO PRN (21:20)
[2021-02-17] MEDS: LEVEMIR (INSULIN DETEMIR) 1 UNITS/0.01ML SC SCH (21:20)
--- NOTE | 2021-02-17 21:36 | IPN ---
PROGRESS NOTE DATE: 02/17/2021 Time of Visit: Approximately 8:30 PM CHIEF COMPLAINT: A 60-year-old male seen for evaluation of swelling and pain of his right foot. HISTORY OF PRESENT ILLNESS: The patient is an insulin dependent diabetic, history of osteomyelitis. The patient is a patient of Dr. Skaggs'ashly who is presently out of town, and I am covering his service. The patient states that he had swelling over the last week and becoming more tender and he presented to the Emergency Room with subsequent admission. The patient states that Dr. Skaggs trims the callous and previous infected area of his right heel. PAST MEDICAL HISTORY: The patient's past medical history is significant for: 1. Diabetes mellitus type 2, on insulin. 2. Congenital hearing impairment. 3. Schizophrenia. 4. Medical noncompliance. 5. History of infection right heel. PAST SURGICAL HISTORY: The patient's past surgical history is significant for: 1. Right foot surgical debridement. 2. Mastoidectomy. MEDICATIONS: 1. Clotrimazole Cream. 2. Insulin. ALLERGIES: NO KNOWN DRUG ALLERGIES. OBJECTIVE: PHYSICAL EXAMINATION: EXTREMITIES: Evaluation of the patient's right foot reveals swelling along the medial eminence of the first metatarsal with an ulceration measuring 5 mm by 5 mm that extends approximately 2-3 mm. It does tunnel in a proximal direction, measuring 4 cm. Dorsalis pedis and posterior tibial pulses are palpable. The patient is neuropathic on the right foot. Swelling involves the right forefoot. X-rays were reviewed of the right foot revealing joint space narrowing. No definitive signs of osteomyelitis. LABORATORY STUDIES: Reviewed revealing a white count of 13.9. C-reactive protein of 6.25, creatinine of 0.83, GFR greater than 60. ASSESSMENT: 1. Abscess first metatarsal area. 2. Right foot diabetes with neuropathy. PLAN: Informed consent was obtained and signed by the patient after appropriate time out at the bedside. Utilizing a sterile scalpel a 4 cm incision was placed over the ulceration site and approximately 1-2 cm of yellow purulent discharge was expressed and sent for aerobic and anaerobic cultures. The wound was packed and orders written to clean the wound with Vashe followed by a calcium alginate packing, preferably Drawtex rope q. 8 hours. The patient is presently on Zosyn. This can be changed according to his culture and sensitivity. His questions were answered.
[2021-02-17 22:00] VITALS: BP 150/82
[2021-02-18] MEDS: PIPERACILLIN/TAZOBACTAM SOD 3.375 GM in D5W MINI-BAG PLUS 50 ML IV SCH ×4 (04:49→23:29)
[2021-02-18 06:00] VITALS: BP 134/75
[2021-02-18 06:18] LABS: HEMATOCRIT 40.2 % (42.0-52.0); HEMOGLOBIN 13.4 g/dl (13.5-17.5); MEAN CORPUSCULAR HEMOGLOBIN 28.8 pg (27.0-33.0); MEAN CORPUSCULAR HGB CONC 33.3 g/dl (32.0-36.5); MEAN CORPUSCULAR VOLUME 86.5 fl (80.0-96.0); PLATELET COUNT, AUTOMATED 236 10^3/uL (150-450); RED BLOOD COUNT 4.65 10^6/uL (4.30-6.10); WHITE BLOOD COUNT 12.8 10^3/uL (4.0-10.0)
[2021-02-18 06:37] LABS: BLOOD UREA NITROGEN 20 MG/DL (7-18); CALCIUM LEVEL 8.1 MG/DL (8.8-10.2); CARBON DIOXIDE LEVEL 26 MEQ/L (21-32); CHLORIDE LEVEL 104 MEQ/L (98-107); CREATININE FOR GFR 0.88 MG/DL (0.70-1.30); GLOMERULAR FILTRATION RATE > 60.0 (>49); GLUCOSE, FASTING 261 MG/DL (70-100); POTASSIUM SERUM 3.8 MEQ/L (3.5-5.1); SODIUM LEVEL 138 MEQ/L (136-145)
[2021-02-18 06:53] LABS: HEMOGLOBIN A1c 9.7 %
[2021-02-18] MEDS: LEVEMIR (INSULIN DETEMIR) 1 UNITS/0.01ML SC SCH ×2 (08:31→21:05)
[2021-02-18] MEDS: HumaLOG INSULIN (NovoLOG) PER UNIT SC SCH ×4 (08:31→21:00)
[2021-02-18] MEDS: ENOXAPARIN 40MG/0.4ML SYRINGE (J1650 PER 10MG) SC SCH (08:31)
--- NOTE | 2021-02-18 11:08 | IPNPDOC ---
Text Note Date of Service The patient was seen on 02/18/21. NOTE SUBJECTIVE: -Was seen by Dr. Ross who performed a bedside I&D of the R first metatarsal area abscess and sent purulent drainage for culture, and packed the wound -No acute events overnight OBJECTIVE: VITAL SIGNS: see below GENERAL APPEARANCE: Patient is awake, alert and oriented and in NAD HEENT: Atraumatic. Normocephalic. Anicteric, non-injected, MMM with poor dentiti on CARDIOVASCULAR:. Normal S1, S2, irregularly irregular rhythm with a regular rate, no noted murmurs LUNGS:. Clear breath sounds bilaterally with good respiratory effort. No wheezes rhonchi or rales. Symmetric chest expansion. ABDOMEN:. Soft nondistended, nontender. Normoactive bowel sounds throughout. EXTREMITIES: Swelling and erythema surrounding the R great toe with focus at the first metatarsal joint that is now with a dressing and packed. NEUROLOGICAL: No focal neurological deficits. Hard of hearing, uses device to amplify sound, reportedly 2/2 congenital hearing loss. PSYCHIATRIC: AOx3 LABORATORY DATA: Reviewed WBC 12.8 Hgb 13.4 platelets 236 Na 138 K 3.8 Cr 0.88 Hgb a1c 9.7 IMAGING: R foot XR: Degenerative changes primarily noted at the 1st metatarsophalangeal joint including joint space narrowing, subchondral sclerosis, marginal spurring and overlying soft tissue swelling. Remainder of the examination appears normal. IMPRESSION: Degenerative changes and swelling noted at the 1st MTP joint. Findings are nonspecific. MICROBIOLOGY: Please see below. ASSESSMENT: 60yo M with a history of diabetes mellitus type 2, schizophrenia, congenital hearing impairment and previous right foot cellulitis with osteomyelitis status post surgical debridement [address] [facility] emergency Department with right foot pain, swelling and redness and found to have cellulitis with a R medial foot abscess at the metatarsal joint s/p I&D on 02/[address] Ross and pending MRI to r/o osteomyelitis. PLAN: 1. Right foot cellulitis with associated abscess. -Patient presenting with right foot swelling, redness and pain. X-ray does not demonstrate any definitive osteomyelitis, but does show degenerative changes and swelling noted in the first MTP joint. -consulted Dr. Ross covering for Dr. Skaggs over the weekend, who performed bedside I&D on 02/17 and packed it, and sent cultures -Pending MRI of the foot to examine for osteomyelitis and depth of infection -continue Zosyn. Will hold off on vancomycin for now as patient has no previous history MRSA. -f/u blood cultures -CRP elevated at 6.25. Will trend -daily CBC 2. Diabetes mellitus type 2 -Patient is a history of poorly controlled diabetes mellitus type 2. -States that he takes Levemir insulin outpatient. However, he is unsure of who his primary care provider is and states he hasn't seen them in years. -A1c 9.7 -Consistent carbohydrate diet -Sliding-scale coverage ACHS -FSBG AC/HS 3. Tobacco abuse -Nicotine gum. Patient states that he cannot use patches 4. Abnormal heart rhythm on physical exam -Patient was noted to have an irregularly irregular heart rhythm on exam. EKG has been ordered which demonstrated a sinus tachycardia, although on repeat physical exam. The patient's rhythm sounds regular. Possible the patient has gone in and out of atrial fibrillation. Therefore, we will place the patient on telemetry monitoring to see if he has undiagnosed atrial fibrillation. -If he is found to have atrial fibrillation, then will have to consider therapeutic anticoagulation 5. DVT prophylaxis -Lovenox SC QD VS,Fishbone, I+O VS, Fishbone, I+O Laboratory Tests 02/17/21 12:03 02/18/21 06:03 Vital Signs Date Time Temp Pulse Resp B/P (MAP) Pulse Ox O2 Delivery O2 Flow Rate FiO2 02/18/21 06:00 98.5 84 17 134/75 (94) 98 Room Air I&O- Last 24 Hours up to 6 AM 02/18/21 06:00 Intake Total 3340 ml Output Total 300 ml Balance 3040 ml KIRAN NINO MD February 18, 2021 08:20
[2021-02-18 14:00] VITALS: BP 140/77
[2021-02-18] MEDS: NICOTINE POLACRILEX 2 MG GUM PO PRN (15:15)
[2021-02-18] MEDS ORDERED: PROHANCE 279.3MG/ML 5ML VIAL As Ordered ONE (17:10)
[2021-02-18] MEDS ORDERED: PROHANCE 279.3MG/ML 15ML VIAL As Ordered ONE (17:10)
--- NOTE | 2021-02-18 17:53 | REPVR ---
PROCEDURE INFORMATION: Exam: MR Right Lower Extremity Other Than Joint Without and With Contrast; Foot Exam date and time: 02/18/2021 5:40 PM Age: 60 years old Clinical indication: Condition or disease; Other: Right foot cellulitis/osteo TECHNIQUE: Imaging protocol: MR of the Right lower extremity without and with intravenous contrast. Exam focused on the foot. Contrast material: PROHANCE; Contrast volume: 19 ml; Contrast route: INTRAVENOUS (IV); COMPARISON: MRI-Foot W/O FOL WITH 07/19/2019 4:28 PM FINDINGS: The examination is limited by motion degradation. There is diffuse soft tissue swelling and subcutaneous edema with associated enhancement and overlying skin thickening. There is a deep soft tissue ulceration along the medial aspect of the hallux metatarsal head with a small to moderate amount of subjacent loculated, enhancing fluid, abutting the cortices of the metatarsal head and tibial hallux sesamoid and tracking proximally along the subcutaneous undersurface of the metatarsal shaft. There is no soft tissue mass. There is no MR evidence of acute fracture or dislocation. Alignment is anatomic. There is prominent bone marrow edema along the medial aspect of the hallux metatarsal head and shaft, as well as the medial base of the hallux proximal phalanx and tibial and fibular hallux sesamoids. This is clearly evident on the fluid sensitive and T1 weighted sequences and demonstrates enhancement after administration of intravenous contrast material. Mild degenerative changes are most prominent at the hallux metatarsophalangeal joint. No erosive or destructive changes are seen. There is no lytic or blastic lesion. There is a small amount of loculated fluid and synovitis in the hallux metatarsophalangeal joint. IMPRESSION: 1. Findings concerning for septic arthritis of the hallux metatarsophalangeal joint with associated periarticular osteomyelitis, as described above. 2. Additional findings, as above. Electronically signed by: Cristofer Jacobsen On 02/18/2021 17:52:47 PM
[2021-02-18] MEDS: MORPHINE 2 MG/ML 1ML VIAL (J2270) IV PRN (21:06)
[2021-02-18 22:00] VITALS: BP 142/78
[2021-02-19] MEDS: PIPERACILLIN/TAZOBACTAM SOD 3.375 GM in D5W MINI-BAG PLUS 50 ML IV SCH ×4 (05:04→23:11)
[2021-02-19 06:00] VITALS: BP 114/60
[2021-02-19 06:35] LABS: HEMATOCRIT 44.7 % (42.0-52.0); MEAN CORPUSCULAR HGB CONC 33.6 g/dl (32.0-36.5); MEAN CORPUSCULAR VOLUME 86.5 fl (80.0-96.0); PLATELET COUNT, AUTOMATED 282 10^3/uL (150-450); RED BLOOD COUNT 5.17 10^6/uL (4.30-6.10); WHITE BLOOD COUNT 13.6 10^3/uL (4.0-10.0)
[2021-02-19 07:03] LABS: BLOOD UREA NITROGEN 13 MG/DL (7-18); CALCIUM LEVEL 8.9 MG/DL (8.8-10.2); CARBON DIOXIDE LEVEL 27 MEQ/L (21-32); CHLORIDE LEVEL 104 MEQ/L (98-107); CREATININE FOR GFR 0.89 MG/DL (0.70-1.30); GLOMERULAR FILTRATION RATE > 60.0 (>49); GLUCOSE, FASTING 213 MG/DL (70-100); SODIUM LEVEL 137 MEQ/L (136-145)
[2021-02-19] MEDS: LEVEMIR (INSULIN DETEMIR) 1 UNITS/0.01ML SC SCH ×2 (08:47→20:34)
[2021-02-19] MEDS: ENOXAPARIN 40MG/0.4ML SYRINGE (J1650 PER 10MG) SC SCH (08:47)
[2021-02-19] MEDS: HumaLOG INSULIN (NovoLOG) PER UNIT SC SCH ×4 (08:48→20:34)
[2021-02-19] MEDS ORDERED: VANCOMYCIN HCL 1,000 MG, VIAL MATE ADAPTER 1 EACH in NS 250 ML IV ONE ×2 (09:00→10:00)
--- NOTE | 2021-02-19 09:30 | IPNPDOC ---
Text Note Date of Service The patient was seen on 02/19/21. NOTE SUBJECTIVE: -No acute events overnight Interim events: -MRI showing osteomyelitis and c/f septic arthritis of the R first metatarsal joint. Updated Dr. Skaggs who is now back on service and consulted ortho. OBJECTIVE: VITAL SIGNS: see below GENERAL APPEARANCE: Patient is awake, alert and oriented and in NAD HEENT: Atraumatic. Normocephalic. Anicteric, non-injected, MMM with poor dentition CARDIOVASCULAR:. Normal S1, S2, irregularly irregular rhythm with a regular rate, no noted murmurs LUNGS:. Clear breath sounds bilaterally with good respiratory effort. No wheezes rhonchi or rales. Symmetric chest expansion. ABDOMEN:. Soft nondistended, nontender. Normoactive bowel sounds throughout. EXTREMITIES: Swelling and erythema surrounding the R great toe with focus at the first metatarsal joint that is now with a dressing and packed. NEUROLOGICAL: No focal neurological deficits. Hard of hearing, uses device to amplify sound, reportedly 2/2 congenital hearing loss. PSYCHIATRIC: AOx3 LABORATORY DATA: Reviewed WBC 13.6 Hgb 15 platelets 282 Na 137 K 4 Cr 0.89 IMAGING: R foot XR: Degenerative changes primarily noted at the 1st metatarsophalangeal joint including joint space narrowing, subchondral sclerosis, marginal spurring and overlying soft tissue swelling. Remainder of the examination appears normal. IMPRESSION: Degenerative changes and swelling noted at the 1st MTP joint. Findings are nonspecific. 02/18 R foot MRI: FINDINGS: The examination is limited by motion degradation. There is diffuse soft tissue swelling and subcutaneous edema with associated enhancement and overlying skin thickening. There is a deep soft tissue ulceration along the medial aspect of the hallux metatarsal head with a small to moderate amount of subjacent loculated, enhancing fluid, abutting the cortices of the metatarsal head and tibial hallux sesamoid and tracking proximally along the subcutaneous undersurface of the metatarsal shaft. There is no soft tissue mass. There is no MR evidence of acute fracture or dislocation. Alignment is anatomic. There is prominent bone marrow edema along the medial aspect of the hallux metatarsal head and shaft, as well as the medial base of the hallux proximal phalanx and tibial and fibular hallux sesamoids. This is clearly evident on the fluid sensitive and T1 weighted sequences and demonstrates enhancement after administration of intravenous contrast material. Mild degenerative changes are most prominent at the hallux metatarsophalangeal joint. No erosive or destructive changes are seen. There is no lytic or blastic lesion. There is a small amount of loculated fluid and synovitis in the hallux metatarsophalangeal joint. IMPRESSION: 1. Findings concerning for septic arthritis of the hallux metatarsophalangeal joint with associated periarticular osteomyelitis, as described above. 2. Additional findings, as above. MICROBIOLOGY: Please see below. Currently growing proteus and staph, pending staph sensitivities ASSESSMENT: 60yo M with a history of diabetes mellitus type 2, schizophrenia, congenital hearing impairment and previous right foot cellulitis with osteomyelitis status post surgical debridement 2018 who presented to [facility] emergency Department with right foot pain, swelling and redness and found to have cellulitis with a R medial foot abscess at the metatarsal joint s/p I&D on 02/[address] Ross and pending MRI to r/o osteomyelitis. PLAN: 1. Right foot cellulitis with associated abscess now imaging c/w ostemyelitis and joint septic arthritis -consulted Dr. Ross covering for Dr. Skaggs over the weekend, who performed bedside I&D on 02/17 and packed it, and sent cultures -Had MRI of the foot that showed osteomyelitis and potential septic arthritis of the joint, consulted ortho and updated Dr. Skaggs who is now back on service and both will see him today. -continue Zosyn -Add vanc since there is staph, pending sensitivities -f/u blood cultures -trend CRP and ESR -daily CBC 2. Diabetes mellitus type 2 -Patient is a history of poorly controlled diabetes mellitus type 2. -States that he takes Levemir insulin outpatient. However, he is unsure of who his primary care provider is and states he hasn't seen them in years. -A1c 9.7 -Consistent carbohydrate diet -Sliding-scale coverage ACHS -FSBG AC/HS 3. Tobacco abuse -Nicotine gum. Patient states that he cannot use patches 4. Abnormal heart rhythm on physical exam -Patient was noted to have an irregularly irregular heart rhythm on exam. EKG has been ordered which demonstrated a sinus tachycardia, although on repeat physical exam. The patient's rhythm sounds regular. Possible the patient has gone in and out of atrial fibrillation. Therefore, we will place the patient on telemetry monitoring to see if he has undiagnosed atrial fibrillation. -If he is found to have atrial fibrillation, then will have to consider therapeutic anticoagulation 5. DVT prophylaxis -Lovenox SC QD VS,Fishbone, I+O VS, Fishbone, I+O Laboratory Tests 02/19/21 06:17 Vital Signs Date Time Temp Pulse Resp B/P (MAP) Pulse Ox O2 Delivery O2 Flow Rate FiO2 02/19/21 06:00 97.1 81 18 114/60 (78) 95 Room Air I&O- Last 24 Hours up to 6 AM 02/19/21 06:00 Intake Total 2570 ml Output Total 300 ml Balance 2270 ml KIRAN NINO MD February 19, 2021 08:48
[2021-02-19] MEDS: NICOTINE POLACRILEX 2 MG GUM PO PRN ×2 (09:32→20:35)
--- NOTE | 2021-02-19 10:57 | CR ---
CONSULTATION DATE: 02/19/2021 CHIEF COMPLAINT: Right first MTP joint diabetic foot and infection. HISTORY OF PRESENT ILLNESS: This 60-year-old man has had multiple years of problems with his feet. He has diabetic foot ulcers. He has had multiple debridements apparently according to the patient by Dr. Skaggs, the living advisor. He was admitted to the hospitalist by Dr. Matos. He saw Dr. Ross recently who performed a bedside debridement and sent for cultures. The patient has been on vancomycin. In addition, they are also on piperacillin/tazobactam. PAST MEDICAL HISTORY: Per the hospitalist's notes include diabetes, type 2 on insulin, congenital hearing impairment, schizophrenia, multiple psychiatric admissions, medical noncompliance, right foot cellulitis and osteomyelitis, status post surgical debridement as mentioned. MEDICATIONS: 1. Vancomycin. 2. Lovenox. 3. Insulin. 4. Piperacillin. 5. Tazobactam. 6. Nicotine. 7. Glucagon. ALLERGIES: No known drug allergies. SURGICAL HISTORY: 1. Mastoidectomy. 2. Right foot surgical debridement in 2019. SOCIAL HISTORY: The patient lives by himself at home. He smokes 1-1/2 pack of cigarettes a day. PHYSICAL EXAMINATION: A 60-year-old male. He responds appropriately but he does have hearing aids, makes it a little bit difficult to communicate. He is clearly familiar with Dr. Skaggs as he is confusing that physician for myself. Inspection of his right lower extremity and foot reveals a bandage in situ. This was elevated. There was a longitudinal about 1.5 inch incision on the medial side just proximal to his first metatarsophalangeal joint of the right foot. There is no redness or active drainage from this but it is packed with wound dressing. He is wiggling his toes and ankle appropriately. Cap refill is a little bit sluggish throughout the foot. He states that there is normal sensation throughout the tip of the toes. The foot is well perfused, palpable posterior tibialis pulse. IMAGING STUDIES: The foot x-ray per the radiologist demonstrates degenerative changes, swelling at the first MTP joint. Findings are nonspecific. MRI performed 02/18/2021 demonstrates findings concerning for septic arthritis of the hallux, metatarsophalangeal joint with associated periarticular osteomyelitis as described above. LABORATORY DATA: Demonstrated a white blood cell count today of 13.6. CRP is 6.25 as of two days ago. ASSESSMENT AND PLAN: This 60-year-old man has a right side diabetic foot with history of ulcers, osteomyelitis in the past and possible septic arthritis versus inflammation from the recent bedside irrigation and debridement of what appears to have been possibly a chronic abscess that was recently drained by Dr. Ross. I reviewed his notes. I think the next best step is to reconsult Dr. Ross and the podiatry service as they have been actively managing this man's care for at least the last two years. Consideration can be given for amputation, transmetatarsal amputation, irrigation and debridement of the joint or continued empiric treatment of antibiotics or bedside wound care and packing, but I will leave that in the hands of Dr. Ross. [facility]
[2021-02-19 14:00] VITALS: BP 148/75
[2021-02-19] MEDS: VANCOMYCIN HCL 1,000 MG, VIAL MATE ADAPTER 1 EACH in NS 250 ML IV SCH (17:16)
--- NOTE | 2021-02-19 17:30 | CR ---
CONSULTATION DATE: 02/19/2021 REASON FOR CONSULTATION: Foot infection. HISTORY OF PRESENT ILLNESS: Jose Yuan is a 60-year-old diabetic male well known to me who was admitted due to right foot swelling and pain. He has history of chronic ulceration which has periodically been healed and reopened at this site. He had recent incision and drainage and cultures taken by Dr. Ross. The patient states since the foot is feeling better but there continues to be some pain and drainage. PAST MEDICAL HISTORY: Includes diabetes, schizophrenia, psychiatric history, congenital hearing impairment. PAST SURGICAL HISTORY: Includes multiple incision and drainages, history of osteomyelitis. ALLERGIES: No known drug allergies. REVIEW OF SYSTEMS: He denies nausea, vomiting, fever or chills. Vitals are examined. T-max 97.1. LABORATORY DATA: Labs are reviewed. White blood cell count is 13.6. CRP on admission was 6.25. Wound cultures thus far are growing Proteus and Staph aureus. IMAGING STUDIES: X-ray findings noted swelling but no osteomyelitis. MRI shows findings suspicious for septic joint and osteomyelitis at the hallux metatarsophalangeal joint. Lower extremity examination on the right foot: There is an ulceration incision at the medial aspect of the right foot. There is some purulent and necrotic tissue. Erythema is improved compared to demarcated line. ASSESSMENT: This is a 61-year-old diabetic male with right foot infection. PLAN: We will bring him to the operating room for further incision and drainage and debridement and possible bone biopsy.
[2021-02-19 22:00] VITALS: BP 154/89
[2021-02-19] MEDS: ACETAMINOPHEN TAB 650MG DOSE (2X325MG) PO PRN (23:12)
[2021-02-20] MEDS: VANCOMYCIN HCL 1,000 MG, VIAL MATE ADAPTER 1 EACH in NS 250 ML IV SCH ×2 (00:50→09:33)
[2021-02-20] MEDS ORDERED: CLOTRIMAZOLE 1% TOPICAL CREAM 30GM TOP PRN (01:05)
[2021-02-20] MEDS: NICOTINE POLACRILEX 2 MG GUM PO PRN ×2 (01:22→11:03)
[2021-02-20] MEDS: PIPERACILLIN/TAZOBACTAM SOD 3.375 GM in D5W MINI-BAG PLUS 50 ML IV SCH ×3 (06:17→16:48)
[2021-02-20] MEDS: HumaLOG INSULIN (NovoLOG) PER UNIT SC SCH ×3 (07:30→17:45)
[2021-02-20] MEDS: ENOXAPARIN 40MG/0.4ML SYRINGE (J1650 PER 10MG) SC SCH (07:46)
[2021-02-20] MEDS: LEVEMIR (INSULIN DETEMIR) 1 UNITS/0.01ML SC SCH (07:46)
[2021-02-20 08:48] LABS: HEMATOCRIT 46.2 % (42.0-52.0); MEAN CORPUSCULAR HEMOGLOBIN 28.4 pg (27.0-33.0); MEAN CORPUSCULAR HGB CONC 32.5 g/dl (32.0-36.5); MEAN CORPUSCULAR VOLUME 87.5 fl (80.0-96.0); PLATELET COUNT, AUTOMATED 292 10^3/uL (150-450); RED BLOOD COUNT 5.28 10^6/uL (4.30-6.10); WHITE BLOOD COUNT 10.9 10^3/uL (4.0-10.0)
[2021-02-20] MEDS ORDERED: LEVEMIR (INSULIN DETEMIR) 1 UNITS/0.01ML SC SCH (09:00)
[2021-02-20 09:14] LABS: ERYTHROCYTE SEDIMENTATION RATE 21 mm/hr (0-20)
[2021-02-20 09:25] LABS: BLOOD UREA NITROGEN 12 MG/DL (7-18); CALCIUM LEVEL 8.9 MG/DL (8.8-10.2); CARBON DIOXIDE LEVEL 30 MEQ/L (21-32); CHLORIDE LEVEL 102 MEQ/L (98-107); CREATININE FOR GFR 0.87 MG/DL (0.70-1.30); GLOMERULAR FILTRATION RATE > 60.0 (>49); GLUCOSE, FASTING 208 MG/DL (70-100); POTASSIUM SERUM 4.8 MEQ/L (3.5-5.1); SODIUM LEVEL 140 MEQ/L (136-145); VANCOMYCIN LEVEL TROUGH 13.1 UG/ML (10.0-20.0)
[2021-02-20 14:00] VITALS: BP 149/81
[2021-02-20] MEDS ORDERED: MIDAZOLAM INJ 2MG/2ML VIAL (J2250 PER 1MG) As Ordered ONE (15:39)
[2021-02-20] MEDS ORDERED: fentaNYL 100 MCG/2 ML INJECTION (J3010) As Ordered ONE (15:40)
[2021-02-20] MEDS ORDERED: LIDOCAINE 2% 100MG/5ML SDV (FOR ANES.) As Ordered ONE (15:42)
[2021-02-20] MEDS ORDERED: LIDOCAINE 1% MDV 20ML VIAL As Ordered ONE (15:57)
[2021-02-20] MEDS ORDERED: BUPIVACAINE HCL 0.5% 30 ML VIAL As Ordered ONE (15:58)
[2021-02-20] MEDS ORDERED: ZOSYN 3.375GM VIAL (J2543) As Ordered ONE (16:35)
--- NOTE | 2021-02-20 16:38 | IPNPDOC ---
Date Seen The patient was seen on 02/20/21. Progress Note SUBJECTIVE: OR today by podiatry. D/c vancomycin, waiting on cultures. Denies increased pain, n/v/d, fevers, chills. OBJECTIVE: PHYSICAL EXAM: VITAL SIGNS: see below GENERAL APPEARANCE: Patient is awake, alert and oriented and in NAD HEENT: Atraumatic. Normocephalic. Anicteric, non-injected, MMM with poor dentition CARDIOVASCULAR:. Normal S1, S2, irregularly irregular rhythm with a regular rate, no noted murmurs LUNGS:. Clear breath sounds bilaterally with good respiratory effort. No wheezes rhonchi or rales. Symmetric chest expansion. ABDOMEN:. Soft nondistended, nontender. Normoactive bowel sounds throughout. EXTREMITIES: Swelling and erythema surrounding the R great toe with focus at the first metatarsal joint- not increased since 02/19/21 , dressing and packed covered in clean gauze. tender to touch NEUROLOGICAL: No focal neurological deficits. Hard of hearing, uses device to amplify sound, reportedly 2/2 congenital hearing loss. PSYCHIATRIC: AOx3 LABORATORY DATA: Please see below IMAGING: MRI right foot: 1. Findings concerning for septic arthritis of the hallux metatarsophalangeal joint with associated periarticular osteomyelitis, as described in report R foot XR: Degenerative changes and swelling noted at the 1st MTP joint. Findings are nonspecific. 02/18 R foot MRI: 1. Findings concerning for septic arthritis of the hallux metatarsophalangeal joint with associated periarticular osteomyelitis, as described above. MICROBIOLOGY: Right foot wound culture: Proteus vulgaris, staph aureus, strep anginosus Right ankle wound culture: pending BCx: NG to date ASSESSMENT: 60yo M with a history of diabetes mellitus type 2, schizophrenia, congenital hearing impairment and previous right foot cellulitis with osteomyelitis status post surgical debridement 2019 who presented to [facility] emergency Department with right foot pain, swelling and redness and found to have cellulitis with a R medial foot abscess at the metatarsal joint s/p I&D on 02/[address] Ross and pending MRI to r/o osteomyelitis. PLAN: Right foot cellulitis, r/o osteomyelitis and joint septic arthritis -Dr. Skaggs performed bedside I&D on 02/17 and packed it, and sent cultures -Wound cx: proteus, staph aureus and strep anginosus -Imaging above -ESR, CRP elevated -OR today by Dr. Skaggs for likely I&D, debridement -F/u right ankle cultures -D/joel vancomycin, c/w zosyn for now Diabetes mellitus type 2 -BS > 200, Hba1c 9.7 -increased levemir to 28 U SC BID -C/w CC diet, ISS, FS AC/HS, hypoglycemic protocol Tobacco abuse -Nicotine gum. Patient states that he cannot use patches Abnormal heart rhythm on physical exam -Patient was noted to have an irregularly irregular heart rhythm on exam. EKG has been ordered which demonstrated a sinus tachycardia, although on repeat physical exam. The patient's rhythm sounds regular. Possible the patient has gone in and out of atrial fibrillation -Tele to monitor DVT prophylaxis -Lovenox SC QD DISPOSITION: OR today, podiatry. Plan is d/c home when medically improved. VS, I&O, 24H, Jhbone Vital Signs/I&O Vital Signs Date Time Temp Pulse Resp B/P (MAP) Pulse Ox O2 Delivery O2 Flow Rate FiO2 02/20/21 14:00 98.1 83 16 149/81 (103) 97 Room Air I&O- Last 24 Hours up to 6 AM 02/20/21 05:59 Intake Total 5100 ml Output Total 1275 ml Balance 3825 ml Laboratory Data 24H LABS Laboratory Tests 2 02/19/21 16:39: Bedside Glucose (Misc Panel) 187H 02/19/21 20:18: Bedside Glucose (Misc Panel) 321H 02/20/21 05:54: Bedside Glucose (Misc Panel) 236H 02/20/21 08:23: Nucleated Red Blood Cells % (auto) 0.0, Erythrocyte Sedimentation Rate 21H, Anion Gap 8, Glomerular Filtration Rate > 60.0, Calcium Level 8.9, Vancomycin Level Trough 13.1 02/20/21 11:31: Bedside Glucose (Misc Panel) 180H 02/20/21 15:53: Bedside Glucose (Misc Panel) 162H CBC/BMP Laboratory Tests 02/20/21 08:23 Microbiology Microbiology 02/17/21 Gram Stain - Final, Resulted 02/17/21 Wound Culture, Resulted Pending 02/17/21 Blood Culture - Preliminary, Resulted No Growth after 72 hours. All specime... 02/17/21 Gram Stain - Final, Complete 02/17/21 Wound Culture - Final, Complete Proteus Vulgaris Staphylococcus Aureus Strep Anginosus Grp 02/17/21 Blood Culture - Preliminary, Resulted No Growth after 72 hours. All specime... Doreen Felipe MD Feb 20, 2021 16:38
[2021-02-20] MEDS ORDERED: ONDANSETRON 4MG/2ML VIAL As Ordered ONE (16:41)
[2021-02-20] MEDS ORDERED: propofoL 200 MG/20 ML VIAL As Ordered ONE (16:41)
[2021-02-20] MEDS ORDERED: oxyCODONE 5MG TAB PO PRN (17:20)
[2021-02-20] MEDS ORDERED: HYDROMORPHONE HCL 0.5 MG/ 0.5 ML SYRINGE (J1170 PER 1) IV PRN (17:20)
[2021-02-20] MEDS ORDERED: ONDANSETRON 4MG/2ML VIAL IV PRN (17:20)
[2021-02-20] MEDS ORDERED: LR 1,000 ML IV SCH (17:20)
[2021-02-20] MEDS ORDERED: fentaNYL 100 MCG/2 ML INJECTION (J3010) IV PRN (17:20)
[2021-02-20 17:49] VITALS: BP 147/82
[2021-02-20] MEDS ORDERED: LACTOBACILLUS ACIDOPHILUS CAP (BACID) PO SCH (18:00)
--- NOTE | 2021-02-20 18:37 | RO ---
OPERATIVE NOTE DATE OF OPERATION: 02/20/2021 PREOPERATIVE DIAGNOSIS: Right foot infection. POSTOPERATIVE DIAGNOSIS: Right foot infection. PROCEDURE: Right foot incision and drainage and bone biopsy/excision. SURGEON: Aman Skaggs DPM THUMB SEWER: None. ANESTHESIA: Monitored anesthesia care. Preop injection of 15 mL 1:1 mix of 1% Lidocaine plain and 0.5% Marcaine plain. ESTIMATED BLOOD LOSS: Minimal. MATERIALS: 3-0 nylon. INJECTABLES: None. SPECIMEN: Right first metatarsal bone. COMPLICATIONS: None. CONDITION: Stable. INDICATIONS: Jose Yuan is a 60-year-old diabetic male with right foot infection. He had bedside incision and drainage and continues to have some necrotic tissue at the wound site with MRI findings concerning for osteomyelitis and septic joint. Decision was made to bring him to the operating room for further debridement, irrigation, and bone biopsy. Patient, site and side were identified and marked preoperatively. Consent was reviewed and obtained. All risks, complications, and alternatives to the procedure were explained to the patient in detail, and all questions were answered. DESCRIPTION OF PROCEDURE: The patient was brought to the operating room and placed on the operating table in supine position. Monitored anesthesia care was delivered by the anesthesia team. Preop injection of 15 mL of 1:1 mix of 1% Lidocaine plain and 0.5% Marcaine plain was injected in the right foot. The right foot was prepped and draped in normal sterile fashion. Tourniquet was applied to the right ankle but was not used during the procedure. Incision was noted at the medial first metatarsal with some necrotic tissue. Using a #15 blade, nonviable tissue was removed. There was some seropurulent fluid in the first metatarsal phalangeal joint. Using an osteotome, a section of the medial metatarsal head was removed and sent for pathology. No further necrotic tissue was identified. The site was irrigated with normal saline. The more proximal incision was repaired with 3-0 nylon. The remaining wound was packed with saline gauze. The wound was irrigated with normal saline solution using a bulb syringe prior to wound closure. Sterile dressings were applied. The patient was brought to PACU with vital signs stable and neurovascular status intact. He will be readmitted to the floor for antibiotics and continued monitoring. SOFY
[2021-02-21] MEDS ORDERED: DOXY100C37 PO (00:34)
--- NOTE | 2021-02-21 16:20 | DS.PDOC ---
Discharge Summary General Date of Admission February 17, 2021 at 15:03 Date of Discharge 02/20/21 Attending Physician: Doreen Felipe MD Discharge Summary DISCHARGE SUMMARY FOR PATIENT LEAVING AMA HISTORY OF PRESENT ILLNESS: Patient is a 60-year-old male with a past medical history significant for insulin dependent diabetes mellitus type 2, congenital hearing impairment, schizophrenia, medication noncompliance, and history of right foot cellulitis with osteomyelitis, status post surgical debridement in 2019 who presented to the [facility] emergency department with complaint of right foot pain, swelling and redness for 1 week. The history of present illness was somewhat difficult to obtain as the patient is difficult to redirect. He denies any fevers or chills. He denies any nausea or vomiting. He denies any chest pain, palpitations or shortness of breath. He states that his foot is painful and he understands that he needs to stay and get it looked at. In the emergency room and the patient was vitally stable. He was afebrile. He did have a leukocytosis and elevated CRP. Right foot imaging did not show any specific signs of osteomyelitis. However, the extent of his cellulitis is concerning for possible abscess formation which would be need for incision and drainage. Hospitalist service was consulted and the patient was admitted for further evaluation and management. HOSPITAL COURSE: Dr. Skaggs (podiatry) performed bedside I&D on 02/17/21 and packed it, and sent cultures. MRI done on 02/18/21 showed findings concerning for septic arthritis of the hallux metatarsophalangeal joint with associated periarticular osteomyelitis- please see official MRI report for further details. Patient's right foot cellulitis, osteomyelitis and joint septic arthritis was treated initially with IV vancomycin and IV zosyn. Wound cx later grew proteus, staph aureus and strep anginosus. ESR, CRP were elevated. Blood sugars were elevated and levemir BID was adjusted. He was take to the OR on 02/20/[address] Skaggs for right foot incision and drainage, first metatarsal bone biopsy. Shortly after his procedure, patient adamantly refused to stay. I was notified later in the afternoon that the patient had left AMA, prior to me being able to discuss reason for him. Risks of leaving prematurely were told to the patient in detail by nursing I was told. PAST MEDICAL HISTORY: 1. Diabetes mellitus type II on insulin 2. Congenital hearing impairment. 3. Schizophrenia/history of multiple psychiatric admissions 4. Medical noncompliance 5. Right foot cellulitis and osteomyelitis status post surgical debridement in 2019 PAST SURGICAL HISTORY: 1. Mastoidectomy 2. Right foot surgical debridement 2018 SOCIAL HISTORY: Patient lives by himself at home. He is a current smoker and smokes approximately 1-1/2 packs per day. He denies any alcohol, IV or illicit drug use. He does not have a primary care physician FAMILY HISTORY: Patient's mother and father both . He has one brother was alive and living in [place]. He has a sister who is alive and living in [facility]. His sister has a history of diabetes mellitus type II DISCHARGE MEDS: Please see below PHYSICAL EXAM: Not able to be performed as I was not here when he left AMA LABORATORY DATA: Please see below IMAGING: MRI right foot: 1. Findings concerning for septic arthritis of the hallux metatarsophalangeal joint with associated periarticular osteomyelitis, as described in report R foot XR: Degenerative changes and swelling noted at the 1st MTP joint. Findings are nonspecific. 02/18 R foot MRI: 1. Findings concerning for septic arthritis of the hallux metatarsophalangeal joint with associated periarticular osteomyelitis, as described above. MICROBIOLOGY: Right foot wound culture: Proteus vulgaris, staph aureus, strep anginosus Right ankle wound culture: pending BCx: NG to date ASSESSMENT: 60yo M with a history of diabetes mellitus type 2, schizophrenia, congenital hearing impairment and previous right foot cellulitis with osteomyelitis status post surgical debridement 2018 who presented to [facility] emergency Department with right foot pain, swelling and redness and found to have cellulitis with a R medial foot abscess at the metatarsal joint s/p I&D on 02/[address] Ross and pending MRI to r/o osteomyelitis. Diagnoses at time of leaving AMA: Right foot cellulitis, osteomyelitis and joint septic arthritis s/p right foot incision and drainage with first metatarsal bone biopsy being done 02/20/2021 Diabetes mellitus type 2 Tobacco abuse Abnormal heart rhythm on physical exam DISPOSITION: Left today AMA. Risks explained to patient prior to leaving TIME SPENT ON DISCHARGE: 15 minutes. Vital Signs/I&Os Vital Signs Date Time Temp Pulse Resp B/P (MAP) Pulse Ox O2 Delivery O2 Flow Rate FiO2 02/20/21 17:49 96.5 81 16 147/82 (103) 97 Room Air I&O- Last 24 Hours up to 6 AM 02/21/21 06:00 Intake Total 770 ml Output Total 5 ml Balance 765 ml Laboratory Data Labs 24H Laboratory Tests 2 02/20/21 17:41: Bedside Glucose (Misc Panel) 162H FSBS Laboratory Tests Test 02/20/21 17:41 Range/Units Bedside Glucose (Misc Panel) 162 80-115 MG/DL Microbiology Microbiology 02/17/21 Gram Stain - Final, Complete 02/17/21 Wound Culture - Final, Complete Proteus Hauseri Staphylococcus Aureus Strep Anginosus Grp Corynebacterium Species 02/17/21 Blood Culture - Preliminary, Resulted No Growth after 72 hours. All specime... 02/17/21 Gram Stain - Final, Complete 02/17/21 Wound Culture - Final, Complete Proteus Vulgaris Staphylococcus Aureus Strep Anginosus Grp 02/17/21 Blood Culture - Preliminary, Resulted No Growth after 72 hours. All specime... Discharge Medications Scheduled Clotrimazole (Clotrimazole) 1% 30GM Cream..g., 1 APLCT TOP BID, (Reported) APPLY TO GLUTEAL REGION Doxycycline Monohydrate (Doxycycline Monohydrate) 100 Mg Capsule, 100 MG PO Q12H Insulin Detemir (Levemir Flextouch) 100 Unit/1 Ml Insuln.pen, 45 UNIT SC DAILY, (Reported) Allergies Coded Allergies: No Known Allergies (Unverified , 06/06/20) Doreen Felipe MD Feb 21, 2021 16:20
== END 2021-02-20 19:10 | disposition left against medical advice (07) | DRG 629 ==
LOC: M ED 11:26 → EDBD 11:26 → M ED INP 15:03 → ENRESERV 16:05 → M MSPAV 17:00
PROVIDERS: ADMIT Internal Medicine; ATTEND Internal Medicine
PROC: 0S9M0ZZ Drainage of Right Metatarsal-Phalangeal Joint, Open Approach (ICD-10-PCS; 2021-02-20)
PROC: 0QBN0ZX Excision of Right Metatarsal, Open Approach, Diagnostic (ICD-10-PCS; principal; 2021-02-20 16:00)
DX: E11.69 Type 2 diabetes mellitus with other specified complication (principal); M86.171 Other acute osteomyelitis, right ankle and foot; L03.115 Cellulitis of right lower limb; Z79.4 Long term (current) use of insulin; Z91.14 Patient's other noncompliance with medication regimen; F20.9 Schizophrenia, unspecified; F17.200 Nicotine dependence, unspecified, uncomplicated; E11.40 Type 2 diabetes mellitus with diabetic neuropathy, unspecified; M90.871 Osteopathy in diseases classified elsewhere, right ankle and foot

== ENCOUNTER 2021-02-20 22:05 | Emergency (ER) | payer MEDICARE, MEDICAID ==
[~2021-02-20] VITALS: Ht 175.3 cm; Wt 109.1 kg
[~2021-02-20 22:05] MED LIST changes: +CLOT1CRE27 TOP
[2021-02-21] MEDS ORDERED: DOXY100C37 PO (00:34)
[2021-02-21 00:37] VITALS: BP 177/93
[2021-02-21 01:07] LABS: RSV AMPLIFICATION NEGATIVE (NEGATIVE)
--- NOTE | 2021-02-21 01:37 | IPNPDOC ---
Text Note Date of Service The patient was seen on 02/21/21. NOTE Mr. Yuan is a patient that was just admitted and left AMA a few hours ago from the inpatient service by Dr Felipe. He had foot cellulitis with possible ostial myelitis. His IV antibiotics vancomycin was discontinued today. Dr. Skaggs took him to the OR this evening for right foot incision and drainage and bone biopsy. I discussed the case with Dr Skaggs to see if patient needs to be readmitted as he return to the emergency department saying he change his mind about leaving AMA. After discussing his case his cultures have returned and they appear to be almost cristina sensitive. Dr Skaggs was comfortable with him going home since his pathology report will not be back for a couple of days for which she does not need to stay in the hospital and he does not require IV antibiotics at this point and so he recommended to me that he can be sent home on oral antibiotics and called podiatry clinic to schedule an appointment within the next week. I agree patient can be sent home from the emergency room at with oral doxycycline 100 mg twice a day for one week and to call the podiatry clinic to schedule an appointment. I saw the patient personally and discussed the sedimentation and he agrees with this plan and will call the podiatry clinic as well as pick up worker his antibiotics in the morning. Patient had fresh dressing applied by his nurse at bedside. VS,Fishbone, I+O VS, Fishbone, I+O Vital Signs Date Time Temp Pulse Resp B/P (MAP) Pulse Ox O2 Delivery O2 Flow Rate FiO2 02/20/21 22:41 97.9 119 20 160/69 (99) 93 Room Air DEMIAN HOOVER MD Feb 21, 2021 00:31
== END 2021-02-21 02:09 | disposition home or self-care (01) ==
LOC: M ED 22:05
DX: L03.115 Cellulitis of right lower limb (principal); Z98.890 Other specified postprocedural states; E11.628 Type 2 diabetes mellitus with other skin complications; F20.9 Schizophrenia, unspecified; F17.200 Nicotine dependence, unspecified, uncomplicated

== ENCOUNTER 2021-02-24 17:38 | Inpatient (IN) | payer MEDICARE, MEDICAID ==
[~2021-02-24 17:38] MED LIST changes: +DOXY100C37 PO
[2021-02-24 18:41] LABS: BASO # 0.1 10^3/uL (0.0-0.2); BASO % 0.5 % (0.0-1.0); EOS # 0.1 10^3/uL (0.0-0.5); EOS % 1.1 % (0.0-3.0); HEMATOCRIT 38.5 % (42.0-52.0); LYMPH # 2.9 10^3/uL (1.5-5.0); LYMPH % 25.8 % (24.0-44.0); MEAN CORPUSCULAR HEMOGLOBIN 29.1 pg (27.0-33.0); MEAN CORPUSCULAR HGB CONC 33.8 g/dl (32.0-36.5); MEAN CORPUSCULAR VOLUME 86.3 fl (80.0-96.0); MONO # 0.8 10^3/uL (0.0-0.8); NEUTROPHILS # 7.3 10^3/uL (1.5-8.5); NEUTROPHILS % 65.3 % (36.0-66.0); PLATELET COUNT, AUTOMATED 272 10^3/uL (150-450); RED BLOOD COUNT 4.46 10^6/uL (4.30-6.10); WHITE BLOOD COUNT 11.2 10^3/uL (4.0-10.0)
[2021-02-24 19:01] LABS: ERYTHROCYTE SEDIMENTATION RATE 33 mm/hr (0-20)
[2021-02-24 19:17] LABS: ALBUMIN 3.4 GM/DL (3.2-5.2); ALT/SGPT 30 U/L (12-78); BILIRUBIN,DIRECT 0.2 MG/DL (0.0-0.2); BILIRUBIN,TOTAL 0.6 MG/DL (0.2-1.0); BLOOD UREA NITROGEN 22 MG/DL (7-18); C REACTIVE PROTEIN QUANTITATIV 1.96 MG/DL (0.00-0.30); CALCIUM LEVEL 8.6 MG/DL (8.8-10.2); CARBON DIOXIDE LEVEL 26 MEQ/L (21-32); CHLORIDE LEVEL 104 MEQ/L (98-107); CREATININE FOR GFR 1.01 MG/DL (0.70-1.30); GLOMERULAR FILTRATION RATE > 60.0 (>49); GLUCOSE, FASTING 74 MG/DL (70-100); POTASSIUM SERUM 2.9 MEQ/L (3.5-5.1); SODIUM LEVEL 139 MEQ/L (136-145); TOTAL PROTEIN 6.7 GM/DL (6.4-8.2)
[2021-02-24] MEDS ORDERED: POTASSIUM CHLORIDE 10 MEQ SR TABLET PO ONE (19:20)
[2021-02-24 19:40] LABS: MAGNESIUM LEVEL 1.4 MG/DL (1.8-2.4)
--- NOTE | 2021-02-24 19:56 | ECGEPIP ---
[facility] - ED Test Date: 2021-02-24 Pat Name: LUCIA MCNAIR Department: Room: - Gender: Male [employer]: HC : 1960 Requested By: Vicenta Parsons Order Number: [id number] Reading MD: Vicenta Parsons Measurements Intervals [place] Rate: 92 P: 49 TX: 204 QRS: 30 QRSD: 94 T: 28 QT: 370 QTc: 457 Interpretive Statements Normal sinus rhythm Cannot rule out Anterior infarct , age undetermined Nonspecific ST T wave changes cw 02/17/[address] T wave changes Electronically Signed on 02-24-2021 19:56:34 EDT by Vicenta Parsons
--- NOTE | 2021-02-24 20:02 | REP ---
INDICATION: hypok COMPARISON: 11/23/2018 TECHNIQUE: Portable AP view of the chest FINDINGS: The mediastinum and cardiac silhouette are stable and within normal limits for portable technique. The lung lozano are clear without acute consolidation, effusion, or pneumothorax. Skeletal structures are intact. IMPRESSION: No acute cardiopulmonary process appreciated. <Electronically signed by Hansel Malave > 02/24/21 195
[2021-02-24] MEDS ORDERED: MAG SULF 1GM/100ML (MAG RUN) 1 GM in IV 1 EA IV ONE (20:25)
[2021-02-24] MEDS ORDERED: MAALOX 30 ML SUSP *UDC PO PRN (20:40)
[2021-02-24] MEDS ORDERED: MOM 30ML SUSPENSION UDC PO PRN (20:40)
[2021-02-24] MEDS ORDERED: DEXTROSE 50% 50 ML SYRINGE IV PRN (20:40)
[2021-02-24] MEDS ORDERED: GLUCAGON INJ 1MG VIAL SC PRN (20:40)
[2021-02-24] MEDS ORDERED: GLUCOSE 4GM CHEW TABLET PO PRN (20:40)
[2021-02-24] MEDS: DOCUSATE SODIUM 100MG CAPSULE PO SCH (21:00)
[2021-02-24] MEDS ORDERED: DOXY100C37 PO (21:21)
[2021-02-24] MEDS ORDERED: MED REC COMMENT (21:22)
[2021-02-24] MEDS: HumaLOG INSULIN (NovoLOG) PER UNIT SC SCH (21:55)
[2021-02-24 21:56] LABS: RSV AMPLIFICATION NEGATIVE (NEGATIVE)
[2021-02-24] MEDS: CLINDAMYCIN 600 MG in IV 1 EA IV SCH (22:00)
[2021-02-24] MEDS ORDERED: KCL 10MEQ/100ML SWI (KRUN) 10 MEQ in IV 1 EA IV ONE (22:00)
[2021-02-24] MEDS: ceFAZolin SOD 2 GM in IV 1 EA IV SCH (22:09)
[2021-02-24 23:10] VITALS: BP 165/90
[2021-02-25] MEDS: ceFAZolin SOD 2 GM in IV 1 EA IV SCH (04:40)
--- NOTE | 2021-02-25 05:27 | HPEPDOC ---
General Date of Admission Feb 24, 2021 at 20:40 Date of Service: Feb 24, 2021 Chief Complaint The patient is a 60-year-old male admitted with a reason for visit of Hypomagesemia,Osteomyelitis. Source: Patient, RN/MD, Old records Exam Limitations: Other Timing/Duration: Unsure Associated Symptoms: Headaches, Malaise, Vomiting History of Present Illness Mr. Yuan is a 60 year-old man with significant PMH of Essential Hypertension, Bipolar depression with anxiety, DM II Insulin dependent uncontrolled with hyperglycemia, Osteomyelitis Right foot with s/p I &D, [place] bilateral with right hearing aid, Insomnia, presents to [facility] reporting fatigue, malaise, dizziness, lethargy, nausea, vomiting, and Right lower ankle/foot pain s/p I &D he had done on02/20/21 in which patient left the facility AMA. He states he was taking his oral antibiotic Doxycycline 100mg po, his wound to this Right foot and ankle clean, dry and intact. Patient;s laboratory results reviewed showing: total wbc 11.2, h/h 13.0/38.5, platelets 272, ESR 33, CRP 1.96, Potassium 2.9, NA 139, BUN/Serum creatinine 22/, eGFR >, Mag 1.4, LFTs normal. Blood cultures x2 pending. Mr. Yuan will be admitted Inpatient Medical Surgical unit for IV antibiotics of 2mg Ancef with Clindamycin 600mg IV q 8 hours due to his failed outpatient antibiotics. Home Medications Scheduled Clotrimazole (Clotrimazole) 1% 30GM Cream..g., 1 APLCT TOP BID, (Reported) APPLY TO GLUTEAL REGION Doxycycline Monohydrate (Doxycycline Monohydrate) 100 Mg Capsule, 100 MG PO Q12H, (Reported) STARTED 02/21/21 X 7 DAYS Insulin Detemir (Levemir Flextouch) 100 Unit/1 Ml Insuln.pen, 45 UNIT SC QHS, (Reported) Miscellaneous Medications [Med Rec Comment] , (Reported) PT. UNABLE TO VERIFY USED EXTERNAL MED HISTORY Allergies Coded Allergies: No Known Allergies (Unverified , 06/06/20) Past Medical History Medical History Essential Hypertension, Bipolar depression with anxiety, DM II Insulin dependent uncontrolled with hyperglycemia, Osteomyelitis Right foot with s/p I &D, [place] bilateral with right hearing aid, Insomnia. Surgical History Right foot I &D (02/20/21); left ear surgery Family History Significant Family History: No pertinent family hx Social History * Smoker: Denies (per chart review) Alcohol: Denies (per chart review) Drugs: prescription drugs Psychosocial History: Anxiety, Bipolar, Decreased mood, Depression A-FIB/CHADSVASC A-FIB History Current/History of A-Fib/PAF?: No Review of Systems Constitutional: Reports: Weakness, Lethargy Other systems Unable to assess, patient not awake. Reviewed his ER admission not to answer questions. All 10 systems were reviewed. Physical Examination General Exam: Positive: No Acute Distress, Other (dishoveled and unkempt) Eye Exam: Positive: Conjunctiva & lids normal ENT Exam: Positive: Atraumatic, Mucous membr. moist/pink Neck Exam: Positive: Supple Chest Exam: Positive: Clear to auscultation, Normal air movement Heart Exam: Positive: Normal S1, Normal S2 Telemetry: Positive: No significant arrhythmia Skin Exam: Positive: Breakdown (Right foot with dressing clean, dry and intact), Other skin issue Vital Signs Vital Signs Date Time Temp Pulse Resp B/P (MAP) Pulse Ox O2 Delivery O2 Flow Rate FiO2 02/24/21 22:30 90 16 94 Room Air 02/24/21 22:00 126/63 (84) 02/24/21 17:58 97.8 Laboratory Data Labs 24H Laboratory Tests 2 02/24/21 18:12: Immature Granulocyte % (Auto) 0.3, Neutrophils (%) (Auto) 65.3, Lymphocytes (%) (Auto) 25.8, Monocytes (%) (Auto) 7.0, Eosinophils (%) (Auto) 1.1, Basophils (%) (Auto) 0.5, Neutrophils # (Auto) 7.3, Lymphocytes # (Auto) 2.9, Monocytes # (Auto) 0.8, Eosinophils # (Auto) 0.1, Basophils # (Auto) 0.1, Nucleated Red Blood Cells % (auto) 0.0, Erythrocyte Sedimentation Rate 33H, Anion Gap 9, Glomerular Filtration Rate > 60.0, Calcium Level 8.6L, Magnesium Level 1.4L, Total Bilirubin 0.6, Direct Bilirubin 0.2, Aspartate Amino Transf (AST/SGOT) 35, Alanine Aminotransferase (ALT/SGPT) 30, Alkaline Phosphatase 85, C-Reactive Protein, Quantitative 1.96H, Total Protein 6.7, Albumin 3.4, Albumin/Globulin Ratio 1.0 02/24/21 19:17: Lactic Acid Level 0.9 02/24/21 20:46: Coronavirus (COVID-19)(PCR) NEGATIVE, Influenza Type A (RT-PCR) NEGATIVE, Influenza Type B (RT-PCR) NEGATIVE, Respiratory Syncytial Virus (PCR) NEGATIVE 02/24/21 21:42: Bedside Glucose (Misc Panel) 178H CBC/BMP Laboratory Tests 02/24/21 18:12 Microbiology Microbiology 02/24/21 Blood Culture, Received Pending 02/24/21 Blood Culture, Received Pending Problems (1) Osteomyelitis Status: Acute Problem Specific Plan: Monitor Clinically, Repeat Labs Problem Text: Mr. Yuan is a 60 year-old male admitted to [facility] for Right Foot Osteomyelitis with failed outpatient antibiotics, hypokalemia and hypomagnesium. Osteomyelitis Right foot s/p I &D on 02/20/21- Acute on Chronic Admit to Inpatient with IV antibiotics Ancef 2 GM and Cleocin IV 600 mg q 8hours (HOLD HOME ANTIBIOTIC DOXYCYCLINE 100 mg po BID) Monitor lab results AM labs ordered and will replace electrolytes as needed Fall precaution Wound consult/manage Change right foot dressing as needed Blood cultures x 2 pending Hypomagnesium (1.4)-Acute Magnesium Sulfate 1GM IV given now in ED Monitor Magnesium lab in AM Hypokalemia (2.9)-Acute Potassium Chloride 40 mEQ po given x 1 dose 1 run of Potassium 10mEQ IV x 1 dose ordered Recheck CMP in AM Essential Hypertension-chronic monitor vs q shift (in chart review patient was taking Amiloride 5 mg po, last refill dated 12/26/20) Start Lisinopril 5 mg now and morning provider will decide on which anti- hypertensive medication for patient. Diabetes Mellitus type 2 with Acute Hyperglycemia-Acute on Chronic POC Glucose AC &HS Sliding scale Insulin initiated per [facility] hospital protocol AC & HS Continue home medication: Insulin Levemir 45 units SQ qHS Diabetic & cardiac diet Bipolar Depression and Anxiety-Chronic Per chart review patient is prescribed Abilify 10mg taking 1/2 tab po daily and was last refilled 12/26/20. Will restart patients medication. Homeless-chronic PFS referral for possible placement and home health nurse to assist with wound care upon discharge as well as medication management Fungal Skin infection (Buttocks)-Chronic Continue Clotrimazole 1 application topically to both glutea bid PPI Prophylaxis: not warranted DVT Prophylaxis: JASMEET epifanio LISA, Lovenox 40 mg SQ daily Discharge: Pending clinical course (2) Abscess of right foot Status: Acute Problem Specific Plan: Monitor Clinically (3) Malaise and fatigue Status: Acute Problem Specific Plan: Monitor Clinically (4) Hypomagnesemia Status: Acute Problem Specific Plan: Monitor Clinically, Repeat Labs (5) Hypokalemia Status: Acute Problem Specific Plan: Monitor Clinically, Repeat Labs (6) Uncontrolled type 2 diabetes mellitus with hyperglycemia, with long-term current use of insulin Status: Acute Problem Specific Plan: Monitor Clinically, Repeat Labs (7) Depression Status: Chronic Problem Specific Plan: Monitor Clinically (8) Homeless single person Status: Chronic Plan / VTE VTE Prophylaxis Ordered?: Yes Plan Therapy: Wound Consult Pt and Family Services: Other PFS (Homeless) Medications: Change to IV Diagnostics: Check Labs, Repeat Labs in [facility] Feb 24, 2021 22:58
[2021-02-25 05:36] LABS: BASO # 0.1 10^3/uL (0.0-0.2); BASO % 0.7 % (0.0-1.0); EOS # 0.3 10^3/uL (0.0-0.5); EOS % 3.1 % (0.0-3.0); HEMATOCRIT 42.1 % (42.0-52.0); HEMOGLOBIN 14.1 g/dl (13.5-17.5); LYMPH # 2.9 10^3/uL (1.5-5.0); LYMPH % 29.1 % (24.0-44.0); MEAN CORPUSCULAR HEMOGLOBIN 28.8 pg (27.0-33.0); MEAN CORPUSCULAR HGB CONC 33.5 g/dl (32.0-36.5); MEAN CORPUSCULAR VOLUME 85.9 fl (80.0-96.0); MONO # 0.9 10^3/uL (0.0-0.8); MONO % 9.3 % (2.0-8.0); NEUTROPHILS # 5.8 10^3/uL (1.5-8.5); NEUTROPHILS % 57.3 % (36.0-66.0); PLATELET COUNT, AUTOMATED 294 10^3/uL (150-450); WHITE BLOOD COUNT 10.1 10^3/uL (4.0-10.0)
[2021-02-25] MEDS: CLINDAMYCIN 600 MG in IV 1 EA IV SCH (05:45)
[2021-02-25 06:00] VITALS: BP 138/69
[2021-02-25 06:18] LABS: ALBUMIN 3.3 GM/DL (3.2-5.2); ALT/SGPT 30 U/L (12-78); BILIRUBIN,TOTAL 0.6 MG/DL (0.2-1.0); BLOOD UREA NITROGEN 19 MG/DL (7-18); CARBON DIOXIDE LEVEL 27 MEQ/L (21-32); CHLORIDE LEVEL 106 MEQ/L (98-107); CREATININE FOR GFR 1.09 MG/DL (0.70-1.30); GLOMERULAR FILTRATION RATE > 60.0 (>49); GLUCOSE, FASTING 190 MG/DL (70-100); MAGNESIUM LEVEL 1.8 MG/DL (1.8-2.4); POTASSIUM SERUM 3.8 MEQ/L (3.5-5.1); SODIUM LEVEL 139 MEQ/L (136-145); TOTAL PROTEIN 6.6 GM/DL (6.4-8.2)
[2021-02-25] MEDS: DOCUSATE SODIUM 100MG CAPSULE PO SCH ×2 (09:17→20:36)
[2021-02-25] MEDS: HumaLOG INSULIN (NovoLOG) PER UNIT SC SCH ×4 (09:19→20:14)
[2021-02-25] MEDS: ENOXAPARIN 40MG/0.4ML SYRINGE (J1650 PER 10MG) SC SCH (09:19)
--- NOTE | 2021-02-25 12:37 | IPNPDOC ---
Text Note Date of Service The patient was seen on 02/25/21. NOTE Subjective: No any acute events overnight. Patient denied fever, chills, nausea, vomiting diarrhea or dysuria Objective: GENERAL APPEARANCE: NAD HEENT: no scleral icterus, no JVD, EOMI CARDIOVASCULAR: S1S2 LUNGS: CTA ABDOMEN: soft & not tender w palpitation MUSCULOSKELETAL: no cyanosis, no swelling, healed wound without pus on medial surface of the right big toe INTEGUMENT: no generalized pallor NEUROLOGICAL: cranial nerve function from 2-12 intact intact, follows commands, speech not dysarthric Assessment and plan Patient is 60 years old male with past history of hypertension, bipolar disorder, depression, anxiety, type 2 diabetes, osteomyelitis of the right foot with s/p I &D, [place] bilateral with right hearing aid presented to the hospital with generalized weakness, dizziness, lethargy. Patient had I &D on the right foot on 02/20/21 in which patient left the facility AMA. osteomyelitis and joint septic arthritis s/p right foot incision and drainage with first metatarsal bone biopsy being done 02/20/2021 MRI done on 02/18/21 showed findings concerning for septic arthritis of the hallux metatarsophalangeal joint with associated periarticular osteomyelitis Wound culture positive for grew proteus, staph aureus and strep anginosus Continue doxycycline 100 mg by mouth twice a day, pro calcitonin negative Sedimentation rate and CRP elevated Appreciate/agree with trainmaster, wound care consult and ID consult Type 2 diabetes Insulin sliding scale Diabetes diet Detemir twice a day Hemoglobin A1c Electrolyte imbalance Replaced Hypertension I will start lisinopril 20 mg by mouth Bipolar disorder/depression/anxiety Nonpsychotic for now Continue home meds 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
[2021-02-25 13:48] LABS: HEMOGLOBIN A1c 10.2 %
[2021-02-25 14:00] VITALS: BP 126/74
[2021-02-25] MEDS: NICOTINE 21MG/24HR 1 EA TRANSDERMAL TD SCH (14:34)
[2021-02-25] MEDS: DOXYCYCLINE HYCLATE 100MG TABLET PO SCH (20:36)
[2021-02-25] MEDS ORDERED: LEVEMIR (INSULIN DETEMIR) 1 UNITS/0.01ML SC SCH (21:00)
[2021-02-25 22:00] VITALS: BP 148/89
[2021-02-25] MEDS: ACETAMINOPHEN TAB 650MG DOSE (2X325MG) PO PRN (22:11)
[2021-02-25] MEDS ORDERED: LEVEMIR (INSULIN DETEMIR) 1 UNITS/0.01ML SC ONE (23:00)
[2021-02-26] MEDS: ACETAMINOPHEN TAB 650MG DOSE (2X325MG) PO PRN ×2 (03:42→19:41)
[2021-02-26 06:00] VITALS: BP 138/80
[2021-02-26 07:42] LABS: BASO # 0.1 10^3/uL (0.0-0.2); BASO % 0.5 % (0.0-1.0); EOS # 0.3 10^3/uL (0.0-0.5); EOS % 3.5 % (0.0-3.0); HEMATOCRIT 42.6 % (42.0-52.0); HEMOGLOBIN 14.3 g/dl (13.5-17.5); LYMPH # 2.9 10^3/uL (1.5-5.0); LYMPH % 30.7 % (24.0-44.0); MEAN CORPUSCULAR HGB CONC 33.6 g/dl (32.0-36.5); MEAN CORPUSCULAR VOLUME 86.4 fl (80.0-96.0); MONO # 0.7 10^3/uL (0.0-0.8); MONO % 7.8 % (2.0-8.0); NEUTROPHILS # 5.5 10^3/uL (1.5-8.5); NEUTROPHILS % 57.2 % (36.0-66.0); PLATELET COUNT, AUTOMATED 283 10^3/uL (150-450); RED BLOOD COUNT 4.93 10^6/uL (4.30-6.10); WHITE BLOOD COUNT 9.5 10^3/uL (4.0-10.0)
[2021-02-26] MEDS ORDERED: FLUBLOK(EGG FREE)(QUAD)INFLUENZA VACC 0.5ML SYRINGE 18YRS & OLDER IM ONE (09:00)
[2021-02-26] MEDS ORDERED: LEVEMIR (INSULIN DETEMIR) 1 UNITS/0.01ML SC SCH (09:00)
[2021-02-26] MEDS: ENOXAPARIN 40MG/0.4ML SYRINGE (J1650 PER 10MG) SC SCH (09:10)
[2021-02-26] MEDS: HumaLOG INSULIN (NovoLOG) PER UNIT SC SCH ×4 (09:10→20:00)
[2021-02-26] MEDS: DOXYCYCLINE HYCLATE 100MG TABLET PO SCH (09:11)
[2021-02-26] MEDS: NICOTINE 21MG/24HR 1 EA TRANSDERMAL TD SCH (09:11)
[2021-02-26] MEDS: DOCUSATE SODIUM 100MG CAPSULE PO SCH ×2 (09:11→20:00)
--- NOTE | 2021-02-26 13:07 | CR ---
TELEMEDICINE WOUND CARE CONSULTATION DATE: 02/26/2021 REQUESTING PHYSICIAN: ASAD BRITO DO REASON FOR CONSULTATION: Wound care suggestions for postoperative wound involving the right medial first metatarsal head area. HISTORY OF PRESENT ILLNESS: Wound Care Telemedicine is designed to evaluate the patient and give treatment suggestions without the benefit of physical examination. It will help establish an etiology and hopefully set some guidelines in terms of treatment. As I am not making rounds on this patient, any order suggestions will have to be entered and co-signed by the attending taking care of the patient. In the future if the patient so desires, he can be seen at our Wound Care Clinic for follow-up. A 60-year-old poorly controlled neuropathic diabetic male, homeless, was admitted for a wound involving the right foot medial aspect at the first metatarsal head. An MRI was obtained which was consistent with osteomyelitis and he was seen by Dr. Skaggs of Podiatry who took him to the Operating Room and did a full wound debridement. Three sutures are now seen closing the surgical incision. There does not appear to be any drainage from the wound or incision line. Patient is on Doxycycline oral antibiotic. At present, the wound appears stable without areas of ischemia erythema or drainage. Patient has appropriate new sneakers which he should use and he should not go barefoot. There is no indication to soak the wound. TREATMENT SUGGESTIONS: As the patient's hemoglobin A1c was 10.2, a dietary consult is in order. Patient should be assigned to a PCP and his diabetes has to be followed more closely and corrected. An arterial ultrasound of the right lower extremity should be obtained prior to discharge; 4 x 4 gauzes are not appropriate and a better dressing would be a foam dressing. This does not have to be medicated. The patient will follow-up with Dr. Skaggs who did the original procedure and if necessary we can see him in our clinic as well. SFOY
[2021-02-26 14:00] VITALS: BP 126/74
--- NOTE | 2021-02-26 14:19 | IPNPDOC ---
Text Note Date of Service The patient was seen on 02/26/21. NOTE Subjective: No any acute events overnight. Patient denied fever, chills, nausea, vomiting diarrhea or dysuria Objective: GENERAL APPEARANCE: NAD HEENT: no scleral icterus, no JVD, EOMI CARDIOVASCULAR: S1S2 LUNGS: CTA ABDOMEN: soft & not tender w palpitation MUSCULOSKELETAL: no cyanosis, no swelling, healed wound without pus on medial surface of the right big toe INTEGUMENT: no generalized pallor NEUROLOGICAL: cranial nerve function from 2-12 intact intact, follows commands, speech not dysarthric Assessment and plan Patient is 60 years old male with past history of hypertension, bipolar disorder, depression, anxiety, type 2 diabetes, osteomyelitis of the right foot with s/p I &D, [place] bilateral with right hearing aid presented to the hospital with generalized weakness, dizziness, lethargy. Patient had I &D on the right foot on 02/20/21 in which patient left the facility AMA. osteomyelitis and joint septic arthritis s/p right foot incision and drainage with first metatarsal bone biopsy being done 02/20/2021 MRI done on 02/18/21 showed findings concerning for septic arthritis of the hallux metatarsophalangeal joint with associated periarticular osteomyelitis Wound culture positive for grew proteus, staph aureus and strep anginosus Continue doxycycline 100 mg by mouth twice a day, pro calcitonin negative Sedimentation rate and CRP elevated Appreciate/agree with space engineer, ID consult Dr. 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
--- NOTE | 2021-02-26 17:28 | CR ---
CONSULTATION DATE: 02/26/2021 REFERRING PHYSICIAN: Hospitalist. REASON FOR CONSULTATION: Evaluation of right foot osteomyelitis and antibiotic management. HISTORY OF PRESENT ILLNESS: Mr. Yuan is a 60-year-old gentleman with insulin-dependent diabetes poorly controlled with HbA1c of 10.2, admitted last month with osteomyelitis and septic arthritis of the right foot involving the first metatarsophalangeal (MTP) joint. He had a bony biopsy done with incision and drainage (I&D) and debridement by Dr. Skaggs and cultures were positive for proteus, methicillin-sensitive Staphylococcus aureus (MSSA), and Streptococcus anginosus. The patient was initially treated with IV antibiotics and then discharged home on doxycycline. The patient has been on doxycycline since 02/21. He came in complaining of headaches, malaise, vomiting, and lethargy. The patient's wound was clean. There was no drainage. He had mild foot pain, but no redness or other concerns. PAST MEDICAL HISTORY: 1. Essential hypertension. 2. Bipolar disorder with anxiety. 3. Diabetes type 2 uncontrolled with HbA1c of 10.2. 4. Severe hearing loss; has a right hearing aid. 5. Insomnia. 6. Right foot osteomyelitis with septic arthritis of the first MTP joint status post I&D done by Dr. Skaggs on 02/20. PAST SURGICAL HISTORY: Right foot I&D. FAMILY HISTORY: Nonrevealing. SOCIAL HISTORY: He lives on [address]. He states that the apartment is very dirty with bedbugs and he does not want to go back there. He denies alcohol or drug abuse. REVIEW OF SYSTEMS: He had nausea on admission, but has resolved. No fever or chills. No night sweats. No chest pain or shortness of breath. He does complain of some neck pain, back pain, and right foot pain. LABORATORY DATA: White count on admission was 11.2 and currently 9.5. Hemoglobin 14.3, hematocrit 42.6, platelets 283,000, neutrophils 57%, lymphocytes 30%, monocytes 8%. ESR 33. Sodium 139, potassium 3.8, chloride 106, bicarb 27, BUN 19, creatinine 1.09, glucose 190. Calcium 9, magnesium 1.8, AST 32, ALT 30, alkaline phosphatase 90. CRP 0.8. Blood cultures two sets were negative. IMAGING DATA: Chest x-ray PA and lateral was negative. MEDICATIONS: 1. Levemir 20 units subcutaneously b.i.d. 2. Lisinopril 10 mg p.o. daily. 3. Doxycycline 100 mg p.o. b.i.d. 4. Insulin sliding scale. 5. Colace 100 mg p.o. b.i.d. PHYSICAL EXAMINATION: GENERAL: He is a pleasant hard of hearing gentleman in no acute distress. VITAL SIGNS: Temperature 97.4, pulse 100, respirations 17, blood pressure 126/74, O2 saturation 95% on room air. HEART: Normal S1, S2. No murmurs, rubs or gallops. LUNGS: Clear with no wheezing, rales, or rhonchi. ABDOMEN: Obese, soft, and nontender. No hepatosplenomegaly BACK: No CVA or lumbosacral spine tenderness. EXTREMITIES: No clubbing, cyanosis, or edema. +2 dorsalis pedis pulses bilaterally. Right foot with surgical incision with sutures in place and slight maceration of the skin, but no surrounding erythema. No tenderness. There is minimal serous drainage on the Optifoam. No evidence of infection. IMPRESSION: This is a 60-year-old insulin-dependent diabetic poorly controlled who was admitted with acute osteomyelitis, polymicrobial on 02/18 with septic arthritis of the first metatarsophalangeal (MTP). Underwent debridement. He had polymicrobial infection with proteus, methicillin-sensitive Staphylococcus aureus (MSSA), and Streptococcus. The patient was discharged on doxycycline even though the proteus is not susceptible. He was admitted with headache and nausea that could have been related to medication side effect, which would be doxycycline, which is a common side of the doxycycline. For those two reasons of side effect, as well as the fact that the proteus is not susceptible, I would suggest switching to cephalosporins. PLAN: Discontinue p.o. doxycycline and start cefdinir 600 mg p.o. daily for two weeks. The patient is concerned about his housing situation and does not want to go home to the same place where he was. Continue antibiotics until sutures are removed by Dr. Skaggs in a minimum of three weeks. He has currently received at least a week of antibiotics since surgery.
[2021-02-26] MEDS: CEFDINIR 300 MG CAP (OMNICEF) PO SCH (18:55)
[2021-02-26] MEDS: LEVEMIR (INSULIN DETEMIR) 1 UNITS/0.01ML SC SCH (20:00)
[2021-02-26 22:00] VITALS: BP 152/89
--- NOTE | 2021-02-26 23:35 | CR ---
CONSULTATION DATE: 02/26/2021 REASON FOR CONSULTATION: Right foot ulcer. HISTORY OF PRESENT ILLNESS: Mr. Yuan is a 60-year-old diabetic male who was recently seen by myself due to right foot osteomyelitis. He had incision and drainage and bone biopsy. He was to be discharged, but he left against medical advice early. He was readmitted yesterday due to worsening concerns of his foot. Patient presently is homeless and does not have care for his foot. PAST MEDICAL HISTORY: Significant for hypertension, bipolar disorder, uncontrolled diabetes, severe hearing loss, insomnia. PAST SURGICAL HISTORY: Includes incision and drainage right foot. FAMILY HISTORY: Noncontributory. SOCIAL HISTORY: Patient denies alcohol or tobacco. Presently he is homeless. REVIEW OF SYSTEMS: Negative for nausea, vomiting, fever or chills. PHYSICAL EXAMINATION: Vitals are examined. Patient has been afebrile since admission. Lower extremity examination: There is no erythema or edema to the right foot. The wound base is without purulence or necrotic tissue. Sutures are in place without dehiscence. LABORATORY DATA: White blood cell count 9.5. Most recent ESR 33. CRP 0.80. ASSESSMENT: A 60-year-old diabetic male status post right foot incision and drainage and bone debridement/biopsy. PLAN: Patient can be discharged once adequate home care can be arranged with antibiotics per infectious disease recommendations. He is to follow-up with myself within one week. Wound care per Dr. Parrish's recommendations.
[2021-02-27] MEDS: ACETAMINOPHEN TAB 650MG DOSE (2X325MG) PO PRN ×2 (02:38→09:20)
[2021-02-27 05:45] LABS: BASO # 0.1 10^3/uL (0.0-0.2); BASO % 0.6 % (0.0-1.0); EOS # 0.2 10^3/uL (0.0-0.5); EOS % 1.5 % (0.0-3.0); HEMATOCRIT 40.6 % (42.0-52.0); HEMOGLOBIN 13.5 g/dl (13.5-17.5); LYMPH # 1.9 10^3/uL (1.5-5.0); LYMPH % 17.1 % (24.0-44.0); MEAN CORPUSCULAR HEMOGLOBIN 28.7 pg (27.0-33.0); MEAN CORPUSCULAR HGB CONC 33.3 g/dl (32.0-36.5); MEAN CORPUSCULAR VOLUME 86.2 fl (80.0-96.0); MONO # 0.8 10^3/uL (0.0-0.8); MONO % 6.9 % (2.0-8.0); NEUTROPHILS # 8.2 10^3/uL (1.5-8.5); NEUTROPHILS % 73.4 % (36.0-66.0); PLATELET COUNT, AUTOMATED 263 10^3/uL (150-450); RED BLOOD COUNT 4.71 10^6/uL (4.30-6.10); WHITE BLOOD COUNT 11.1 10^3/uL (4.0-10.0)
[2021-02-27 06:00] VITALS: BP 142/83
[2021-02-27] MEDS: NICOTINE 21MG/24HR 1 EA TRANSDERMAL TD SCH (09:18)
[2021-02-27] MEDS: LEVEMIR (INSULIN DETEMIR) 1 UNITS/0.01ML SC SCH (09:18)
[2021-02-27] MEDS: HumaLOG INSULIN (NovoLOG) PER UNIT SC SCH ×2 (09:19→12:56)
[2021-02-27] MEDS: CEFDINIR 300 MG CAP (OMNICEF) PO SCH (09:20)
[2021-02-27 09:21] VITALS: BP 157/83
[2021-02-27] MEDS: ENOXAPARIN 40MG/0.4ML SYRINGE (J1650 PER 10MG) SC SCH (09:21)
[2021-02-27] MEDS: DOCUSATE SODIUM 100MG CAPSULE PO SCH (09:23)
[2021-02-27] MEDS ORDERED: CEFD300CAP PO (12:36)
[2021-02-27] MEDS ORDERED: LISI10TA22 PO (12:36)
[2021-02-27] MEDS ORDERED: DOK1CAP7 PO (12:36)
[2021-02-27] MEDS ORDERED: METF-838 PO (12:36)
[2021-02-27] MEDS ORDERED: LEVE1INJ5 SC (12:36)
--- NOTE | 2021-02-27 14:59 | REP ---
INDICATION: Right foot wound TECHNIQUE: Right lower extremity arterial Doppler FINDINGS: All numeric values represent peak systolic velocities in cm\sec. The ankle brachial index could not be calculated. MILLER HEAD: 96.1 triphasic Profunda: 159.5 triphasic SFA proximal: 99.0 triphasic SFA Mid: 115.3 triphasic SFA distal: 94.6 triphasic Popliteal: 69.5 triphasic CALDERON proximal: 64.2 triphasic Tibioperoneal trunk: 78.9 triphasic MANAGER TRAINING proximal: 32.9 triphasic MANAGER TRAINING distal: Reversed, 35.3 monophasic CALDERON distal: 106.8 monophasic Mild plaque formation was seen from the common femoral artery to the anterior tibial and posterior tibial arteries inclusive. In the distal posterior tibial artery reversed flow is identified with an occluded vessel revascularized at the midportion. Small stenotic areas were seen in the distal anterior tibial artery, right profunda, and at the origin of the profunda. IMPRESSION: As above <Electronically signed by Erich Roberto > 02/27/21 1381
[2021-02-27] MEDS ORDERED: ASPI81CH33 PO (15:32)
[2021-02-27] MEDS ORDERED: ATOR40TA75 PO (15:33)
--- NOTE | 2021-02-27 19:11 | DS.PDOC ---
Discharge Summary General Date of Admission Feb 24, 2021 at 20:40 Date of Discharge 02/27/21 Discharge Summary PROCEDURES PERFORMED DURING STAY: right foot incision and drainage ADMITTING DIAGNOSES: osteomyelitis and joint septic arthritis s/p right foot incision and drainage Type 2 diabetes Electrolyte imbalance Hypertension Bipolar disorder/depression/anxiety Homeless DISCHARGE DIAGNOSES: osteomyelitis and joint septic arthritis s/p right foot incision and drainage Type 2 diabetes Electrolyte imbalance Hypertension Bipolar disorder/depression/anxiety Homeless COMPLICATIONS/CHIEF COMPLAINT: Hypomagesemia,Osteomyelitis. HISTORY OF PRESENT ILLNESS:Patient is 60 years old male with past history of hypertension, bipolar disorder, depression, anxiety, type 2 diabetes, osteomyelitis of the right foot with s/p I &D, CREEK bilateral with right hearing aid presented to the hospital with generalized weakness, dizziness, lethargy. Patient had I &D on the right foot on 02/20/21 in which patient left the facility AMA. HOSPITAL COURSE: During hospital stay the following issues addressed osteomyelitis and joint septic arthritis s/p right foot incision and drainage with first metatarsal bone biopsy being done 02/20/2021 MRI done on 02/18/21 showed findings concerning for septic arthritis of the hallux metatarsophalangeal joint with associated periarticular osteomyelitis Wound culture positive for grew proteus, staph aureus and strep anginosus Continue doxycycline 100 mg by mouth twice a day, pro calcitonin negative Sedimentation rate and CRP elevated Dr. Parrish recommended An arterial ultrasound of the right lower extremity should be obtained prior to discharge, a foam dressing. Dr Centeno rec Cefdinir 600 mg at dc for 2 weeks Type 2 diabetes Poorly controlled diabetes most likely due to noncompliance Insulin sliding scale Diabetes diet Patient received Detemir twice a day Hemoglobin A1c 10.2 Electrolyte imbalance Replaced Hypertension Continue lisinopril 20 mg by mouth DISCHARGE MEDICATIONS: Please see below. ALLERGIES: Please see below. PHYSICAL EXAMINATION ON DISCHARGE: VITAL SIGNS: Please see below. Objective: GENERAL APPEARANCE: NAD HEENT: no scleral icterus, no JVD, EOMI CARDIOVASCULAR: S1S2 LUNGS: CTA ABDOMEN: soft & not tender w palpitation MUSCULOSKELETAL: no cyanosis, no swelling, healed wound without pus on medial surface of the right big toe INTEGUMENT: no generalized pallor NEUROLOGICAL: cranial nerve function from 2-12 intact intact, follows commands, speech not dysarthric LABORATORY DATA: Please see below. IMAGING: Right foot wound TECHNIQUE: Right lower extremity arterial Doppler FINDINGS: All numeric values represent peak systolic velocities in cm\sec. The ankle brachial index could not be calculated. [employer] OFFICER: 96.1 triphasic Profunda: 159.5 triphasic SFA proximal: 99.0 triphasic SFA Mid: 115.3 triphasic SFA distal: 94.6 triphasic Popliteal: 69.5 triphasic CALDERON proximal: 64.2 triphasic Tibioperoneal trunk: 78.9 triphasic CREW MEMBER proximal: 32.9 triphasic CREW MEMBER distal: Reversed, 35.3 monophasic CALDERON distal: 106.8 monophasic Mild plaque formation was seen from the common femoral artery to the anterior tibial and posterior tibial arteries inclusive. In the distal posterior tibial artery reversed flow is identified with an occluded vessel revascularized at the midportion. Small stenotic areas were seen in the distal anterior tibial artery, right profunda, and at the origin of the profunda. IMPRESSION: As above PROGNOSIS: Fair ACTIVITY: [As tolerated]. DIET: Cardiac/diabetes DISPOSITION: 01 Home, Self-Care. DISCHARGE INSTRUCTIONS: Follow-up with insurance consultant, PCP, vascular surgeon, wound care DISCHARGE CONDITION: [Stable]. TIME SPENT ON DISCHARGE: 40minutes. Vital Signs/I&Os Vital Signs Date Time Temp Pulse Resp B/P (MAP) Pulse Ox O2 Delivery O2 Flow Rate FiO2 02/27/21 09:21 157/83 02/27/21 06:00 97.4 93 19 95 Room Air I&O- Last 24 Hours up to 6 AM 02/27/21 06:00 Intake Total 2377 ml Output Total 0 ml Balance 2377 ml Laboratory Data Labs 24H Laboratory Tests 2 02/26/21 19:43: Bedside Glucose (Misc Panel) 196H 02/27/21 05:25: Immature Granulocyte % (Auto) 0.5, Neutrophils (%) (Auto) 73.4H, Lymphocytes (%) (Auto) 17.1L, Monocytes (%) (Auto) 6.9, Eosinophils (%) (Auto) 1.5, Basophils (%) (Auto) 0.6, Neutrophils # (Auto) 8.2, Lymphocytes # (Auto) 1.9, Monocytes # (Auto) 0.8, Eosinophils # (Auto) 0.2, Basophils # (Auto) 0.1, Nucleated Red Blood Cells % (auto) 0.0 02/27/21 06:22: Bedside Glucose (Misc Panel) 207H 02/27/21 11:49: Bedside Glucose (Misc Panel) 129H CBC/BMP Laboratory Tests 02/27/21 05:25 FSBS Laboratory Tests Test 02/26/21 19:43 02/27/21 06:22 02/27/21 11:49 Range/Units Bedside Glucose (Misc Panel) 196 207 129 80-115 MG/DL Microbiology Microbiology 02/24/21 Blood Culture - Preliminary, Resulted No Growth after 48 hours. All Specime... 02/24/21 Blood Culture - Preliminary, Resulted No Growth after 48 hours. All Specime... Discharge Medications Scheduled Aspirin (Aspirin) 81 Mg Tab.chew, 81 MG PO DAILY for pain Atorvastatin Calcium (Atorvastatin Calcium) 40 Mg Tablet, 40 MG PO DAILY Cefdinir (Cefdinir) 300 Mg Capsule, 600 MG PO DAILY Clotrimazole (Clotrimazole) 1% 30GM Cream..g., 1 APLCT TOP BID, (Reported) APPLY TO GLUTEAL REGION Insulin Detemir (Levemir Flextouch) 100 Unit/1 Ml Insuln.pen, 50 UNIT SC QHS Lisinopril (Lisinopril) 10 Mg Tablet, 10 MG PO QAM Metformin HCl (Metformin HCl ER) 500 Mg Tab.er.24h, 500 MG PO BID Scheduled PRN Docusate Sodium (Dok) 100 Mg Capsule, 100 MG PO BID PRN for constipation Miscellaneous Medications [Med Rec Comment] , (Reported) PT. UNABLE TO VERIFY USED EXTERNAL MED HISTORY Allergies Coded Allergies: No Known Allergies (Unverified , 06/06/20) ASAD BRITO DO Feb 27, 2021 19:11
== END 2021-02-27 16:45 | disposition home or self-care (01) | DRG 549 ==
LOC: M ED 17:38 → EDBD 17:38 → M ED INP 20:40 → ENRESERV 22:28 → M MSPAV 23:07
PROVIDERS: ADMIT Family Medicine; ATTEND Internal Medicine
DX: M00.871 Arthritis due to other bacteria, right ankle and foot (principal); M86.171 Other acute osteomyelitis, right ankle and foot; E11.65 Type 2 diabetes mellitus with hyperglycemia; I10 Essential (primary) hypertension; F31.9 Bipolar disorder, unspecified; F41.9 Anxiety disorder, unspecified; Z59.0 Homelessness; Z91.19 Patient's noncompliance with other medical treatment and regimen; Z79.82 Long term (current) use of aspirin; Z79.4 Long term (current) use of insulin; E83.42 Hypomagnesemia

== ENCOUNTER 2021-02-28 18:40 | Emergency (ER) | payer MEDICARE, MEDICAID ==
[~2021-02-28] VITALS: Ht 182.9 cm; Wt 90.9 kg
[~2021-02-28 18:40] MED LIST changes: +ASPI81CH33 PO; +ATOR40TA75 PO; +CEFD300CAP PO; +DOK1CAP7 PO; +LISI10TA22 PO; +MED REC COMMENT
[2021-02-28 19:41] VITALS: BP 140/81
[2021-03-02] MEDS ORDERED: ARIP1TAB PO (11:16)
== END 2021-02-28 20:38 | disposition home or self-care (01) ==
LOC: M ED 18:40
DX: F43.0 Acute stress reaction (principal); Z59.9 Problem related to housing and economic circumstances, unspecified; E11.9 Type 2 diabetes mellitus without complications; I10 Essential (primary) hypertension; F31.9 Bipolar disorder, unspecified; Z79.84 Long term (current) use of oral hypoglycemic drugs; Z79.82 Long term (current) use of aspirin; Z79.899 Other long term (current) drug therapy

== ENCOUNTER 2021-03-02 09:43 | Inpatient (IN) | payer MEDICARE, MEDICAID ==
[~2021-03-02] VITALS: Ht 177.8 cm; Wt 100.5 kg
[~2021-03-02 09:43] MED LIST changes: -DOXY100C37 PO; +DOXY1CAP62 PO
[2021-03-02 10:46] LABS: HEMOGLOBIN 13.8 g/dl (13.5-17.5); MEAN CORPUSCULAR HEMOGLOBIN 28.3 pg (27.0-33.0); MEAN CORPUSCULAR HGB CONC 32.1 g/dl (32.0-36.5); MEAN CORPUSCULAR VOLUME 88.3 fl (80.0-96.0); PLATELET COUNT, AUTOMATED 279 10^3/uL (150-450); RED BLOOD COUNT 4.87 10^6/uL (4.30-6.10); WHITE BLOOD COUNT 10.3 10^3/uL (4.0-10.0)
[2021-03-02] MEDS ORDERED: CEFD1CAP8 PO (11:16)
[2021-03-02] MEDS ORDERED: ARIP10TA32 PO (11:16)
[2021-03-02] MEDS ORDERED: DOCU100C16 PO (11:16)
[2021-03-02 11:40] LABS: ALT/SGPT 30 IU/L (0-32); BLOOD UREA NITROGEN 21 MG/DL (7-18); CALCIUM LEVEL 9.2 MG/DL (8.8-10.2); CARBON DIOXIDE LEVEL 30 mmol/L (20-29); CHLORIDE LEVEL 98 MEQ/L (98-107); CREATININE FOR GFR 1.09 MG/DL (0.70-1.30); GLOMERULAR FILTRATION RATE > 60.0 (>49); GLUCOSE, FASTING 155 MG/DL (70-100); SODIUM LEVEL 136 MEQ/L (136-145)
[2021-03-02 11:41] LABS: ACETAMINOPHEN LEVEL < 2.0 UG/ML (10.0-30.0); ALBUMIN 3.9 GM/DL (3.2-5.2); BILIRUBIN,DIRECT 0.2 MG/DL (0.0-0.2); BILIRUBIN,TOTAL 0.6 MG/DL (0.2-1.0); ETHYL ALCOHOL (ETHANOL) < 0.003 % (0.000-0.010); THYROID STIMULATING HORMONE 0.346 uIU/ML (0.358-3.740); TOTAL PROTEIN 7.4 GM/DL (6.4-8.2)
[2021-03-02 11:55] LABS: SALICYLATE LEVEL 9.4 MG/DL (5.0-30.0)
[2021-03-02] MEDS ORDERED: ACETAMINOPHEN 325 MG TAB PO ONE (12:50)
[2021-03-02] MEDS ORDERED: OLANZapine INTRAMUSCULAR 10MG VIAL IM ONE (13:15)
[2021-03-02 13:47] LABS: AMPHETAMINES LEVEL URINE NEGATIVE (NEGATIVE)
[2021-03-02 13:48] LABS: BARBITURATES URINE NEGATIVE (NEGATIVE); BENZODIAZEPINES URINE NEGATIVE (NEGATIVE); CANNABINOIDS URINE POSITIVE (NEGATIVE); COCAINE METABOLITE URINE NEGATIVE (NEGATIVE); METHADONE URINE NEGATIVE (NEGATIVE); OPIATES URINE NEGATIVE (NEGATIVE); PHENCYCLIDINE URINE NEGATIVE (NEGATIVE)
[2021-03-02] MEDS ORDERED: MOM 30ML SUSPENSION UDC PO PRN (14:20)
[2021-03-02] MEDS ORDERED: MAALOX 30 ML SUSP *UDC PO PRN (14:20)
[2021-03-02] MEDS ORDERED: haloperidoL 5 MG TAB PO PRN (14:20)
[2021-03-02] MEDS ORDERED: ASPI81CH33 PO (14:45)
[2021-03-02] MEDS ORDERED: ATOR40TA75 PO (14:45)
[2021-03-02] MEDS ORDERED: LISI10TA22 PO (14:45)
[2021-03-02] MEDS ORDERED: METF-838 PO (14:45)
[2021-03-02 14:51] LABS: RSV AMPLIFICATION NEGATIVE (NEGATIVE)
[2021-03-02] MEDS ORDERED: INSUDET SC (15:02)
[2021-03-02] MEDS ORDERED: COMMENTS (15:02)
[2021-03-02] MEDS ORDERED: DOCUSATE SODIUM 100MG CAPSULE PO PRN (16:40)
[2021-03-02 17:02] VITALS: BP 140/88
[2021-03-02] MEDS: metFORMIN XR 500MG TAB *GLUCOPHAGE XR PO SCH (18:13)
[2021-03-02] MEDS: DOXYCYCLINE HYCLATE 100MG TABLET PO SCH (21:16)
[2021-03-02] MEDS: CEFDINIR 300 MG CAP (OMNICEF) PO SCH (21:16)
[2021-03-02] MEDS: LEVEMIR (INSULIN DETEMIR) 1 UNITS/0.01ML SC SCH (21:18)
[2021-03-03] MEDS: ACETAMINOPHEN TAB 650MG DOSE (2X325MG) PO PRN ×2 (03:45→18:06)
[2021-03-03 05:53] VITALS: BP 115/53
[2021-03-03] MEDS: metFORMIN XR 500MG TAB *GLUCOPHAGE XR PO SCH ×2 (07:43→18:06)
[2021-03-03] MEDS: DOXYCYCLINE HYCLATE 100MG TABLET PO SCH ×2 (08:44→21:35)
[2021-03-03] MEDS: ATORVASTATIN 20 MG TAB PO SCH (08:44)
[2021-03-03] MEDS: ASPIRIN 81 MG CHEW TABLET PO SCH (08:44)
[2021-03-03] MEDS: CEFDINIR 300 MG CAP (OMNICEF) PO SCH ×2 (08:44→21:35)
[2021-03-03 09:34] LABS: HEMATOCRIT 44.4 % (42.0-52.0); HEMOGLOBIN 14.4 g/dl (13.5-17.5); MEAN CORPUSCULAR HEMOGLOBIN 28.6 pg (27.0-33.0); MEAN CORPUSCULAR HGB CONC 32.4 g/dl (32.0-36.5); MEAN CORPUSCULAR VOLUME 88.3 fl (80.0-96.0); PLATELET COUNT, AUTOMATED 304 10^3/uL (150-450); RED BLOOD COUNT 5.03 10^6/uL (4.30-6.10); WHITE BLOOD COUNT 10.8 10^3/uL (4.0-10.0)
--- NOTE | 2021-03-03 09:46 | HPEPDOC ---
[facility] Medical History & Physical Date of Admission Mar 02, 2021 Date of Service: Mar 03, 2021 History and Physical CHIEF COMPLAINT: homicidal ideation HISTORY OF PRESENT ILLNESS: 60 year old male presents to ED for auditory hallucinations, and noted to be making homicidal threats. He denies suicidal ideation. Patient is homeless, was recently admitted for right foot osteo s/p I&D, with polymicrobial cultures. He had a prior admission for the same issues, for which he left against medical advice. Presently patient has no medical complaints. He denies shortness of breath, chest pain, abdominal pain, nausea, vomiting, diarrhea, headaches, changes in vision. He also denies any pain with his right foot, although he expresses concern regarding his ongoing issues with his right foot. PAST MEDICAL HISTORY: #medical non-compliance #osteomyelitis #right foot septic arthritis - s/p recent I&D #Type 2 diabetes #HTN #Bipolar disorder/depression/anxiety SOCIAL HISTORY: Patient denies nicotine abuse, alcohol abuse or illicit drug use. FAMILY HISTORY: Family history as per patient and chart review is noncontributory. ALLERGIES: Please see below. REVIEW OF SYSTEMS: 10 point ROS negative, except as per HPI HOME MEDICATIONS: Please see below. PHYSICAL EXAMINATION: VITAL SIGNS: See below General: NAD, sitting comfortably in chair HEENT: NC/AT, EOMI, PERRL, hard of hearing Lungs: CTA B/l, no wheezing Heart: +S1S2, RRR, -M/R/G Abd: soft, obese, NT, +BS Ext: no edema, right heel ulcer with no exudates, right foot bandages in place Psych: alert, awake, oriented person, place Neuro: no gross focal deficits LABORATORY DATA: See below. MICROBIOLOGY: Please see below. A/P: 60 year old male admitted to [facility] for homicidal ideation, with PMHx HTN, DM, recent right foot osteo. #psych - follow as per primary team psychiatry #right foot osteo - podiatry c/s pending - continue doxy/cefdinir as per previous discharge meds - based on cultures/sensitivities #DM - carb controlled diet - metformin #DLP - atorvastatin #HTN - continue home meds - lisinopril Thank you for this consultation. We will continue to follow this patient. Vital Signs Vital Signs Date Time Temp Pulse Resp B/P (MAP) Pulse Ox O2 Delivery O2 Flow Rate FiO2 03/03/21 08:44 140/66 03/03/21 05:53 98.5 93 18 95 Room Air Laboratory Data Labs 24H Laboratory Tests 2 03/02/21 10:14: Nucleated Red Blood Cells % (auto) 0.0, Anion Gap 8, Glomerular Filtration Rate > 60.0, Calcium Level 9.2, Total Bilirubin 0.6, Direct Bilirubin 0.2, Aspartate Amino Transf (AST/SGOT) 18, Alanine Aminotransferase (ALT/SGPT) 30, Alkaline Phosphatase 104, Total Protein 7.4, Albumin 3.9, Albumin/Globulin Ratio 1.1, Thyroid Stimulating Hormone (TSH) 0.346L, Salicylates Level 9.4, Urine Opiates Screen NEGATIVE, Urine Methadone Screen NEGATIVE, Acetaminophen Level < 2.0L, Urine Barbiturates Screen NEGATIVE, Urine Phencyclidine Screen NEGATIVE, Urine Amphetamines Screen NEGATIVE, Urine Benzodiazepines Screen NEGATIVE, Urine Cocaine Metabolite Screen NEGATIVE, Urine Cannabinoids Screen POSITIVEH, Ethyl Alcohol Level < 0.003 03/02/21 14:03: Coronavirus (COVID-19)(PCR) NEGATIVE, Influenza Type A (RT-PCR) NEGATIVE, Infl uenza Type B (RT-PCR) NEGATIVE, Respiratory Syncytial Virus (PCR) NEGATIVE 03/02/21 18:15: Lactic Acid Level 1.6 CBC/BMP Laboratory Tests 03/02/21 10:14 Home Medications Scheduled Aripiprazole (Aripiprazole) 10 Mg Tablet, 5 MG PO DAILY Aspirin (Aspirin) 81 Mg Tab.chew, 81 MG PO DAILY Atorvastatin Calcium (Atorvastatin Calcium) 40 Mg Tablet, 40 MG PO DAILY Cefdinir (Cefdinir) 300 Mg Capsule, 300 MG PO BID Insulin Detemir (Levemir) 100 Unit/1 Ml Vial, 50 UNITS SC QHS Lisinopril (Lisinopril) 10 Mg Tablet, 10 MG PO DAILY Metformin HCl (Metformin HCl ER) 500 Mg Tab.er.24h, 500 MG PO BID Scheduled PRN Docusate Sodium (Docusate Sodium) 100 Mg Capsule, 100 MG PO BID PRN for CONSTIPATION Miscellaneous Medications [Comments] MED LIST BASED ON EXTERNAL MED HISTORY AND LAST DISCHARGE. Allergies Coded Allergies: No Known Allergies (Unverified , 06/06/20) A-FIB/CHADSVASC A-FIB History Current/History of A-Fib/PAF?: No WALLY DASH MD Mar 03, 2021 09:46
[2021-03-03 10:09] LABS: BLOOD UREA NITROGEN 22 MG/DL (7-18); CARBON DIOXIDE LEVEL 36 MEQ/L (21-32); CHLORIDE LEVEL 100 MEQ/L (98-107); CREATININE FOR GFR 1.11 MG/DL (0.70-1.30); GLOMERULAR FILTRATION RATE > 60.0 (>49); GLUCOSE, FASTING 167 MG/DL (70-100); POTASSIUM SERUM 3.9 MEQ/L (3.5-5.1); SODIUM LEVEL 138 MEQ/L (136-145)
--- NOTE | 2021-03-03 13:47 | MHHPE ---
[facility] HISTORY AND PHYSICAL DATE OF ADMISSION: 03/02/2021 HISTORY OF PRESENT ILLNESS: This is a 60-year-old man with prior psychiatric history who was admitted after he was brought by his occasional caregiver to the hospital. He was hearing voices. Apparently, he is homeless, but the patient was also voicing that he was hearing God's voice and he was very religiously preoccupied and his thinking is very disorganized, so obviously, patient is not able to care for himself at this point and was admitted. When I saw the patient today, his thoughts continued to be very disorganized and he continues to have quaker-type delusions about God talking to him and basically, I am not really able to get much of a history from him. Of note is that the patient has a significant hearing deficit and so the way that we communicated with him was basically the nurse would write on a piece of paper the questions that I was asking. PAST PSYCHIATRIC HISTORY: The patient was hospitalized at [facility] inpatient mental health unit on 11/14/2020. He was hallucinating then and apparently, in [place], he was hospitalized in 2016. The records show that there is a history of two suicidal attempts, but they were many years ago. MEDICAL HISTORY: Other than his hearing deficit, I did not elicit any other medical problems. SUBSTANCE ABUSE: The patient's toxicology is positive for cannabis. TRAUMA HISTORY: Unable to obtain. FAMILY HISTORY: Unable to obtain. REVIEW OF SYSTEMS: VITAL SIGNS: Blood pressure 115/53, pulse 93, respirations 18.. APPEARANCE: The patient appears to be much older than his age. NEUROMUSCULAR SYSTEM: The patient's gait was normal. There were no involuntary movements noted in the extremities. All other systems were reviewed and found to be negative. MENTAL STATUS EXAMINATION: He is alert and he is oriented times three. His eye contact is fair. He is verbally spontaneous. His speech is a bit pressured. He says that his mood is "not good." Affect is appropriate to mood. He appears to be religiously preoccupied and delusional. His thinking is disorganized. Concentration is poor. Memory is fair. Insight and judgment poor. DIAGNOSES: 1. Unspecified psychotic disorder. 2. Rule out schizophrenia. TREATMENT PLAN: At this point, the patient will be further evaluated for his disorganized thinking and quaker-type delusions. He is on Abilify 10 mg and we will titrate the medication as indicated and involve him in individual, group and milieu therapies as indicated. We will plan to discharge him with appropriate followup when stable. MTDD
[2021-03-03 16:12] VITALS: BP 130/63
--- NOTE | 2021-03-03 16:20 | CR ---
CONSULTATION DATE: 03/03/2021 REASON FOR CONSULTATION: Foot ulceration. Jose Yuan is a patient well known to me who was admitted to [facility] due to mental health exacerbation. I was asked for consultation due to wound. He was seen earlier this last week as followup to his right foot infection. MEDICAL HISTORY: 1. Diabetes with neuropathy. 2. Osteomyelitis. 3. Hypertension. 4. Bipolar disorder. 5. Anxiety and depression. 6. Schizophrenia. SURGICAL HISTORY: Right foot debridement. SOCIAL HISTORY: Patient presently homeless. Denies other alcohol or tobacco uses. ALLERGIES: No known drug allergies. REVIEW OF SYSTEMS: Denies nausea, vomiting, fever, or chills. Vital signs are reviewed. Maximum temperature is 99.2. Labs are reviewed. White blood cell count is 10.8. LOWER EXTREMITY EXAMINATION: There is minimal erythema to the right foot. Some fibrous wound but no active purulent or necrosis. ASSESSMENT: Right foot ulceration. PLAN: Continue oral antibiotics as written based on previous wound culture. Wound care orders written. Once discharged, patient should have followup with me in the office.
[2021-03-03] MEDS: LEVEMIR (INSULIN DETEMIR) 1 UNITS/0.01ML SC SCH (21:36)
[2021-03-03] MEDS: LORazepam 1 MG TAB PO PRN (23:59)
[2021-03-03] MEDS: traZODone 50 MG TAB PO PRN (23:59)
[2021-03-04 06:31] VITALS: BP 130/71
[2021-03-04] MEDS: ACETAMINOPHEN TAB 650MG DOSE (2X325MG) PO PRN (07:47)
[2021-03-04] MEDS: metFORMIN XR 500MG TAB *GLUCOPHAGE XR PO SCH ×2 (07:48→17:24)
[2021-03-04] MEDS: CEFDINIR 300 MG CAP (OMNICEF) PO SCH ×2 (09:36→21:48)
[2021-03-04] MEDS: ATORVASTATIN 20 MG TAB PO SCH (09:37)
[2021-03-04] MEDS: ASPIRIN 81 MG CHEW TABLET PO SCH (09:37)
[2021-03-04] MEDS: DOXYCYCLINE HYCLATE 100MG TABLET PO SCH ×2 (09:38→21:48)
[2021-03-04] MEDS: NICOTINE 14 MG/24 HR TRANSDERMAL TD SCH (09:41)
[2021-03-04] MEDS: IBUPROFEN 800 MG TAB PO PRN (14:25)
[2021-03-04] MEDS ORDERED: diphenhydrAMINE 25MG CAP PO ONE (14:30)
[2021-03-04 15:24] VITALS: BP 125/73
[2021-03-04] MEDS: LEVEMIR (INSULIN DETEMIR) 1 UNITS/0.01ML SC SCH (21:48)
[2021-03-04] MEDS: traZODone 50 MG TAB PO PRN (21:48)
[2021-03-05 06:43] VITALS: BP 151/83
[2021-03-05] MEDS: ASPIRIN 81 MG CHEW TABLET PO SCH (08:49)
[2021-03-05] MEDS: DOXYCYCLINE HYCLATE 100MG TABLET PO SCH (08:50)
[2021-03-05] MEDS: metFORMIN XR 500MG TAB *GLUCOPHAGE XR PO SCH ×2 (08:50→16:46)
[2021-03-05] MEDS: ATORVASTATIN 20 MG TAB PO SCH (08:50)
[2021-03-05] MEDS: CEFDINIR 300 MG CAP (OMNICEF) PO SCH ×2 (08:51→20:32)
[2021-03-05] MEDS: NICOTINE 14 MG/24 HR TRANSDERMAL TD SCH (08:52)
--- NOTE | 2021-03-05 11:39 | MHIPNPDOC ---
[facility] Progress Note Progress Note DATE OF SERVICE: 03/05/21 HISTORY: Patient is a 60-year-old Single, Disabled, Undomiciled, male with prior psychiatric history who was admitted after he was brought by his plant care worker to the hospital. He was hearing voices. Apparently, he is homeless, but the patient was also voicing that he was hearing God's voice and he was very religiously preoccupied and his thinking is very disorganized, so obviously, patient is not able to care for himself at this point and was admitted. He continued to be very disorganized and he continues to have yazidism-type delusions about God talking to him and basically, I am not really able to get much of a history from him. PER ED REPORT: Pt was brought in my financial center manager Ludin Kina. PSA met with pt at bedside. Pt is [place], when asked why he was here pt stated "because God told me to come here today, there is a reason for everything." Pt denies SI/HI stating "God put me here." When asked if he experiences AH/VH pt stated "I hear nothing I only hear what God wants me to hear and see, the devil is a liar to me here." When pt was asked who he lives with pt stated "I can't answer that, God tells me when to speak, when to move, etc." Pt was very religiously preoccupied, and unable to coherently answer any questions. Every question pt was asked pt responded with a yazidism answer. PSA contacted Pt financial center manager Ludin Castanon and left voicemail. Pt was discharged from a medical floor on 02/27/21 and reported to ED on 02/28/21 for being homeless. PATRICIO Mckee LCSW met with pt on this visit and pt did not seem to be religiously preoccupied, although did make a small yazidism comment at end of interview. At this point in time pt is in no capacity to be s afely discharged. VITAL SIGNS: See below. NEW TEST RESULTS: . CURRENT MEDICATIONS: See below. MENTAL STATUS EXAMINATION: Patient is a 60-year-old Single, Disabled, Undomiciled, male with prior psychiatric history who was admitted after he was brought by his plant care worker to the hospital. He was hearing voices. Appearance: Unkempt, disheveled Behavior: Cooperative Eye Contact: Fleeting Speech: slow rate, tone and volume Language skills are intact Thought processes including: loose, tangential Thought content: denies depression and anxiety. Denies suicidal/homicidal ideation, planning or intent. Abstract reasoning, and computation: fair Description of associations: religiously preoccupied and answers with yazidism filled speech Description of abnormal or psychotic thoughts: ruminating often, yazidism verbage, visual hallucinations Judgment: impaired to poor Insight: impaired to poor Orientation: alert and oriented to person, place, time and situation Recent and remote memory: intact Attention span and concentration: poor Language: average Fund of knowledge: average Mood: Worried Affect: DIAGNOSES: Schizophrenia, Paranoid Type Cannabis Use Disorder ASSESSMENT: Patient was nonsensical with yazidism speech. Stating that he loves God from the bottom of his heart. Talks about the "Jd [place]" and had nonsensical speech about 2 Bible that he may or may not have brought into the hospital. Much of his answers were filled with yazidism verbage. He ruminated about his being admitted to [facility]. Stated that he was a [address] and God directed him to leave. He had complained about the other boarders at this [facility] - stating something about drugs and bed bugs. He remains psychotic with poor insight and judgment. MANAGEMENT PLAN: Continue all medications as ordered, will discharge when stable. Due to his current housing situation, patient will need to go to [facility] for emergency housing. TIME SPENT: 25 minutes. Vital Signs Vital Signs Date Time Temp Pulse Resp B/P (MAP) Pulse Ox O2 Delivery O2 Flow Rate FiO2 03/05/21 08:51 150/90 03/05/21 06:43 97.7 107 20 99 Room Air Current Medications Current Medications Medications (Trade) Dose Ordered Sig/Dar Route PRN Reason Start Time Stop Time Status Last Admin Dose Admin Acetaminophen (Tylenol Tab) 650 mg Q6HP PRN PO HEADACHE or DISCOMFORT 03/02/21 14:20 03/04/21 07:47 Al Hydrox/Mg Hydrox/Simethicone (Mylanta) 30 ml Q4HP PRN PO HEARTBURN/INDIGESTION 03/02/21 14:20 03/03/21 17:34 Aripiprazole (AbiLIFY) 5 mg DAILY PO 03/03/21 09:00 03/05/21 08:49 Aspirin (Aspirin Chewable) 81 mg DAILY PO 03/03/21 09:00 03/05/21 08:49 Atorvastatin Calcium (Lipitor) 40 mg DAILY PO 03/03/21 09:00 03/05/21 08:50 Cefdinir (Omnicef) 300 mg BID PO 03/02/21 21:00 03/05/21 08:51 Diphenhydramine HCl (Benadryl) 25 mg Q8HP PRN PO ITCHING 03/04/21 17:00 Docusate Sodium (Colace) 100 mg BID PRN PO CONSTIPATION 03/02/21 16:40 Doxycycline Hyclate (Vibramycin) 100 mg BID PO 03/02/21 21:00 03/05/21 08:50 Haloperidol (Haldol) 5 mg Q6HP PRN PO ANXIETY/AGITATION 03/02/21 14:20 03/05/21 03:16 Home Med (Med Rec Complete!) ASDIRECTED XX 03/02/21 15:05 03/02/21 15:05 DC Ibuprofen (Advil) 800 mg Q8HP PRN PO MODERATE PAIN (PS 5-7) 03/04/21 14:15 03/04/21 14:25 Insulin Detemir (Levemir Insulin) 50 units QHS SC 03/02/21 21:00 03/04/21 21:48 Lisinopril (Prinivil) 10 mg DAILY PO 03/03/21 09:00 03/05/21 08:51 Lorazepam (Ativan) 1 mg Q6HP PRN PO ANXIETY/AGITATION 03/02/21 14:20 03/03/21 23:59 Magnesium Hydroxide (Milk Of Magnesia) 30 ml DAILYPRN PRN PO CONSTIPATION 03/02/21 14:20 Metformin HCl (Glucophage Xr) 500 mg BIDWM PO 03/02/21 18:00 03/05/21 08:50 Nicotine (Nicoderm Cq 14mg) 1 patch DAILY TD 03/04/21 09:00 03/05/21 08:52 Trazodone HCl (Desyrel) 50 mg QHSP PRN PO INSOMNIA 03/02/21 14:20 03/04/21 21:48 Allergies Coded Allergies: No Known Allergies (Unverified , 06/06/20) LISA FIELDS NP Mar 05, 2021 11:09
--- NOTE | 2021-03-05 13:14 | MHIPN ---
[facility] PSYCHIATRIC PROGRESS NOTE DATE: 03/04/2021 HISTORY OF PRESENT ILLNESS: The patient today states that he is doing okay. He continues to hear God's voice talking to him. He complains a lot about the living arrangement that he was at; he said he was in a room that had a lot of bugs. MENTAL STATUS EXAM: This patient is alert and oriented times 3. Eye contact is fair. Psychomotor activity is normal. The patient does have a lot of trouble with his hearing, but we did have the staff write questions for him. He is not suicidal or homicidal. Concentration is fair. Memory is fair. Insight and judgment is poor. DIAGNOSES: 1. Unspecified psychotic disorder. 2. Rule out schizophrenia. TREATMENT PLAN: We will continue to monitor the patient for psychotic symptoms and to titrate medications as indicated.
[2021-03-05] MEDS: ACETAMINOPHEN TAB 650MG DOSE (2X325MG) PO PRN ×2 (14:40→20:34)
[2021-03-05] MEDS: IBUPROFEN 800 MG TAB PO PRN (16:46)
[2021-03-05 18:01] VITALS: BP 138/79
[2021-03-05] MEDS: LEVEMIR (INSULIN DETEMIR) 1 UNITS/0.01ML SC SCH (20:32)
[2021-03-05] MEDS: diphenhydrAMINE 25MG CAP PO PRN (21:14)
[2021-03-06] MEDS: LORazepam 1 MG TAB PO PRN (00:04)
[2021-03-06] MEDS: traZODone 50 MG TAB PO PRN (00:04)
[2021-03-06 06:00] VITALS: BP 118/65
[2021-03-06] MEDS: ASPIRIN 81 MG CHEW TABLET PO SCH (08:52)
[2021-03-06] MEDS: ATORVASTATIN 20 MG TAB PO SCH (08:53)
[2021-03-06] MEDS: metFORMIN XR 500MG TAB *GLUCOPHAGE XR PO SCH ×2 (08:53→17:03)
[2021-03-06] MEDS: risperiDONE 2 MG TAB PO SCH ×2 (08:53→21:46)
[2021-03-06] MEDS: CEFDINIR 300 MG CAP (OMNICEF) PO SCH ×2 (08:53→21:46)
[2021-03-06] MEDS: NICOTINE 14 MG/24 HR TRANSDERMAL TD SCH (08:55)
--- NOTE | 2021-03-06 13:22 | MHIPNPDOC ---
[facility] Progress Note Progress Note DATE OF SERVICE: 03/06/21 HISTORY: Patient is a 60-year-old Single, Disabled, Undomiciled, male with prior psychiatric history who was admitted after he was brought by his early breastfeeding care specialist to the hospital. He was hearing voices. Apparently, he is homeless, but the patient was also voicing that he was hearing God's voice and he was very religiously preoccupied and his thinking is very disorganized, so obviously, patient is not able to care for himself at this point and was admitted. He continued to be very disorganized and he continues to have cheondoism-type delusions about God talking to him and basically, I am not really able to get much of a history from him. PER ED REPORT: Pt was brought in my sow farm manager Ludin Kina. PSA met with pt at bedside. Pt is [place], when asked why he was here pt stated "because God told me to come here today, there is a reason for everything." Pt denies SI/HI stating "God put me here." When asked if he experiences AH/VH pt stated "I hear nothing I only hear what God wants me to hear and see, the devil is a liar to me here." When pt was asked who he lives with pt stated "I can't answer that, God tells me when to speak, when to move, etc." Pt was very religiously preoccupied, and unable to coherently answer any questions. Every question pt was asked pt responded with a cheondoism answer. PSA contacted Pt sow farm manager Ludin Castanon and left voicemail. Pt was discharged from a medical floor on 02/27/21 and reported to ED on 02/28/21 for being homeless. PATRICIO Mckee LCSW met with pt on this visit and pt did not seem to be religiously preoccupied, although did make a small cheondoism comment at end of interview. At this point in time pt is in no capacity to be s afely discharged. VITAL SIGNS: See below. NEW TEST RESULTS: . CURRENT MEDICATIONS: See below. MENTAL STATUS EXAMINATION: Patient is a 60-year-old Single, Disabled, Undomiciled, male with prior psychiatric history who was admitted after he was brought by his early breastfeeding care specialist to the hospital. He was hearing voices. Appearance: Unkempt, disheveled Behavior: Cooperative Eye Contact: Fleeting Speech: slow rate, tone and volume Language skills are intact Thought processes including: loose Thought content: denies depression and anxiety. Denies suicidal/homicidal ideation, planning or intent. Abstract reasoning, and computation: fair Description of associations: religiously preoccupied and answers with cheondoism filled speech Description of abnormal or psychotic thoughts: ruminating often, less cheondoism preoccupation Judgment: improving Insight: improving Orientation: alert and oriented to person, place, time and situation Recent and remote memory: intact Attention span and concentration: improving Language: average Fund of knowledge: average Mood: Worried Affect: constricted/flat DIAGNOSES: Schizophrenia, Paranoid Type Cannabis Use Disorder ASSESSMENT: Patient denies depression. Reports that he has a headache, but stated "I don't have pain in my legs." Patient reports that he was taking his medications "most of the time." Today he is focused on his money. He states that he has a sum of money from the month of January and February and that he should be able to find housing. He complains of his current housing being infected with bedbugs and drugs and people on drugs. Mildly religiously preoccupied in the interview, but is observed with internal stimuli on the unit. Patient currently has a foot wound . Antibiotic was renewed. Also, Abilify changed to Risperdal 2 mg twice daily. I am hopeful that the patient will take a long-acting injectable MANAGEMENT PLAN: Continue all medications as ordered, will discharge when stable. Due to his current housing situation, patient will need to go to [facility] for emergency housing. TIME SPENT: 25 minutes. Vital Signs Vital Signs Date Time Temp Pulse Resp B/P (MAP) Pulse Ox O2 Delivery O2 Flow Rate FiO2 03/06/21 08:53 136/75 03/06/21 06:00 97.9 85 18 96 Room Air Laboratory Data 24H Labs Laboratory Tests 2 03/05/21 21:18: Bedside Glucose (Misc Panel) 135H Current Medications Current Medications Medications (Trade) Dose Ordered Sig/Dar Route PRN Reason Start Time Stop Time Status Last Admin Dose Admin Acetaminophen (Tylenol Tab) 650 mg Q6HP PRN PO HEADACHE or DISCOMFORT 03/02/21 14:20 03/05/21 20:34 Al Hydrox/Mg Hydrox/Simethicone (Mylanta) 30 ml Q4HP PRN PO HEARTBURN/INDIGESTION 03/02/21 14:20 03/03/21 17:34 Aripiprazole (AbiLIFY) 5 mg DAILY PO 03/03/21 09:00 03/06/21 08:15 DC 03/05/21 08:49 Aspirin (Aspirin Chewable) 81 mg DAILY PO 03/03/21 09:00 03/06/21 08:52 Atorvastatin Calcium (Lipitor) 40 mg DAILY PO 03/03/21 09:00 03/06/21 08:53 Cefdinir (Omnicef) 300 mg BID PO 03/02/21 21:00 03/06/21 08:53 Diphenhydramine HCl (Benadryl) 25 mg Q8HP PRN PO ITCHING 03/04/21 17:00 03/05/21 21:14 Docusate Sodium (Colace) 100 mg BID PRN PO CONSTIPATION 03/02/21 16:40 Doxycycline Hyclate (Vibramycin) 100 mg BID PO 03/02/21 21:00 03/05/21 14:39 DC 03/05/21 08:50 Haloperidol (Haldol) 5 mg Q6HP PRN PO ANXIETY/AGITATION 03/02/21 14:20 03/05/21 03:16 Home Med (Med Rec Complete!) ASDIRECTED XX 03/02/21 15:05 03/02/21 15:05 DC Ibuprofen (Advil) 800 mg Q8HP PRN PO MODERATE PAIN (PS 5-7) 03/04/21 14:15 03/05/21 16:46 Insulin Detemir (Levemir Insulin) 50 units QHS SC 03/02/21 21:00 03/05/21 20:32 Lisinopril (Prinivil) 10 mg DAILY PO 03/03/21 09:00 03/06/21 08:53 Lorazepam (Ativan) 1 mg Q6HP PRN PO ANXIETY/AGITATION 03/02/21 14:20 03/06/21 00:04 Magnesium Hydroxide (Milk Of Magnesia) 30 ml DAILYPRN PRN PO CONSTIPATION 03/02/21 14:20 Metformin HCl (Glucophage Xr) 500 mg BIDWM PO 03/02/21 18:00 03/06/21 08:53 Nicotine (Nicoderm Cq 14mg) 1 patch DAILY TD 03/04/21 09:00 03/06/21 08:55 Risperidone (RisperDAL) 2 mg BID PO 03/06/21 09:00 03/06/21 08:53 Trazodone HCl (Desyrel) 50 mg QHSP PRN PO INSOMNIA 03/02/21 14:20 03/06/21 00:04 Allergies Coded Allergies: No Known Allergies (Unverified , 06/06/20) LISA FIELDS NP Mar 06, 2021 13:22
[2021-03-06 16:15] VITALS: BP 167/81
[2021-03-06] MEDS: ACETAMINOPHEN TAB 650MG DOSE (2X325MG) PO PRN (18:20)
[2021-03-06] MEDS: LEVEMIR (INSULIN DETEMIR) 1 UNITS/0.01ML SC SCH (21:46)
[2021-03-07] MEDS: diphenhydrAMINE 25MG CAP PO PRN (00:36)
[2021-03-07] MEDS: traZODone 50 MG TAB PO PRN ×2 (00:36→20:32)
[2021-03-07] MEDS: LORazepam 1 MG TAB PO PRN (00:36)
[2021-03-07] MEDS: IBUPROFEN 800 MG TAB PO PRN (07:47)
[2021-03-07] MEDS: CEFDINIR 300 MG CAP (OMNICEF) PO SCH ×2 (08:55→20:31)
[2021-03-07] MEDS: ASPIRIN 81 MG CHEW TABLET PO SCH (08:55)
[2021-03-07] MEDS: risperiDONE 2 MG TAB PO SCH ×2 (08:55→20:32)
[2021-03-07] MEDS: metFORMIN XR 500MG TAB *GLUCOPHAGE XR PO SCH ×2 (08:55→20:32)
[2021-03-07] MEDS: NICOTINE 14 MG/24 HR TRANSDERMAL TD SCH (08:59)
[2021-03-07] MEDS: ATORVASTATIN 20 MG TAB PO SCH (09:00)
--- NOTE | 2021-03-07 11:59 | MHIPNPDOC ---
[facility] Progress Note Progress Note DATE OF SERVICE: 03/07/21 HISTORY: Patient is a 60-year-old Single, Disabled, Undomiciled, male with prior psychiatric history who was admitted after he was brought by his care transitions manager to the hospital. He was hearing voices. Apparently, he is homeless, but the patient was also voicing that he was hearing God's voice and he was very religiously preoccupied and his thinking is very disorganized, so obviously, patient is not able to care for himself at this point and was admitted. He continued to be very disorganized and he continues to have episcopalian-type delusions about God talking to him and basically, I am not really able to get much of a history from him. PER ED REPORT: Pt was brought in my fundraising manager Ludin Kina. PSA met with pt at bedside. Pt is [place], when asked why he was here pt stated "because God told me to come here today, there is a reason for everything." Pt denies SI/HI stating "God put me here." When asked if he experiences AH/VH pt stated "I hear nothing I only hear what God wants me to hear and see, the devil is a liar to me here." When pt was asked who he lives with pt stated "I can't answer that, God tells me when to speak, when to move, etc." Pt was very religiously preoccupied, and unable to coherently answer any questions. Every question pt was asked pt responded with a episcopalian answer. PSA contacted Pt fundraising manager Ludin Castanon and left voicemail. Pt was discharged from a medical floor on 02/27/21 and reported to ED on 02/28/21 for being homeless. PATRICIO Mckee LCSW met with pt on this visit and pt did not seem to be religiously preoccupied, although did make a small episcopalian comment at end of interview. At this point in time pt is in no capacity to be s afely discharged. VITAL SIGNS: See below. NEW TEST RESULTS: . CURRENT MEDICATIONS: See below. MENTAL STATUS EXAMINATION: Patient is a 60-year-old Single, Disabled, Undomiciled, male with prior psychiatric history who was admitted after he was brought by his care transitions manager to the hospital. He was hearing voices. Appearance: Unkempt, disheveled Behavior: Cooperative Eye Contact: Fair Speech: slow rate, tone and volume Language skills are intact Thought processes including: loose Thought content: denies depression and anxiety. Denies suicidal/homicidal ideation, planning or intent. Abstract reasoning, and computation: fair Description of associations: religiously preoccupied and answers with episcopalian filled speech Description of abnormal or psychotic thoughts:none observed Judgment: fair Insight: fair Orientation: alert and oriented to person, place, time and situation Recent and remote memory: intact Attention span and concentration: improving Language: average Fund of knowledge: average Mood: nervous/worried Affect: constricted/flat DIAGNOSES: Schizophrenia, Paranoid Type Cannabis Use Disorder ASSESSMENT: Patient is extremely hard of hearing, the provider used the computer to type out questions. He states that he is "doing better, has no complaints and feels good to be alive." He further states that he feels that the medications are helping him. He is fixated on finding a place to go to when he is discharged. His correctional case records supervisor is working on this. Patient states "I want to get proper help, and I want to make sure I do all the right things." Continue hospitalization - restarted home medication within the last 48 hours. Patient is motivated to find safe housing but lacks ability to do this independently due to severe hearing loss. Spoke with Dr. Crum's office regarding wound of right foot, left message. See Wound Care Note by RN MANAGEMENT PLAN: Continue all medications as ordered, will discharge when stable. Patient is afraid that he may have to return to his current housing which he states he does not want to return to because he is afraid of the drugs in the boarding home. TIME SPENT: 25 minutes. Vital Signs Vital Signs Date Time Temp Pulse Resp B/P (MAP) Pulse Ox O2 Delivery O2 Flow Rate FiO2 03/07/21 08:59 138/70 03/07/21 08:09 Room Air 03/06/21 16:15 97.5 111 18 03/06/21 06:00 96 Laboratory Data 24H Labs Laboratory Tests 2 03/06/21 21:41: Bedside Glucose (Misc Panel) 141H Current Medications Current Medications Medications (Trade) Dose Ordered Sig/Dar Route PRN Reason Start Time Stop Time Status Last Admin Dose Admin Acetaminophen (Tylenol Tab) 650 mg Q6HP PRN PO HEADACHE or DISCOMFORT 03/02/21 14:20 03/06/21 18:20 Al Hydrox/Mg Hydrox/Simethicone (Mylanta) 30 ml Q4HP PRN PO HEARTBURN/INDIGESTION 03/02/21 14:20 03/03/21 17:34 Aripiprazole (AbiLIFY) 5 mg DAILY PO 03/03/21 09:00 03/06/21 08:15 DC 03/05/21 08:49 Aspirin (Aspirin Chewable) 81 mg DAILY PO 03/03/21 09:00 03/07/21 08:55 Atorvastatin Calcium (Lipitor) 40 mg DAILY PO 03/03/21 09:00 03/06/21 08:53 Cefdinir (Omnicef) 300 mg BID PO 03/02/21 21:00 03/07/21 08:55 Diphenhydramine HCl (Benadryl) 25 mg Q8HP PRN PO ITCHING 03/04/21 17:00 03/07/21 00:36 Docusate Sodium (Colace) 100 mg BID PRN PO CONSTIPATION 03/02/21 16:40 Doxycycline Hyclate (Vibramycin) 100 mg BID PO 03/02/21 21:00 03/05/21 14:39 DC 03/05/21 08:50 Haloperidol (Haldol) 5 mg Q6HP PRN PO ANXIETY/AGITATION 03/02/21 14:20 03/05/21 03:16 Home Med (Med Rec Complete!) ASDIRECTED XX 03/02/21 15:05 03/02/21 15:05 DC Ibuprofen (Advil) 800 mg Q8HP PRN PO MODERATE PAIN (PS 5-7) 03/04/21 14:15 03/07/21 07:47 Insulin Detemir (Levemir Insulin) 50 units QHS SC 03/02/21 21:00 03/06/21 21:46 Lisinopril (Prinivil) 10 mg DAILY PO 03/03/21 09:00 03/07/21 08:59 Lorazepam (Ativan) 1 mg Q6HP PRN PO ANXIETY/AGITATION 03/02/21 14:20 03/07/21 00:36 Magnesium Hydroxide (Milk Of Magnesia) 30 ml DAILYPRN PRN PO CONSTIPATION 03/02/21 14:20 Metformin HCl (Glucophage Xr) 500 mg BIDWM PO 03/02/21 18:00 03/07/21 08:55 Nicotine (Nicoderm Cq 14mg) 1 patch DAILY TD 03/04/21 09:00 03/07/21 08:59 Risperidone (RisperDAL) 2 mg BID PO 03/06/21 09:00 03/07/21 08:55 Trazodone HCl (Desyrel) 50 mg QHSP PRN PO INSOMNIA 03/02/21 14:20 03/07/21 00:36 Allergies Coded Allergies: No Known Allergies (Unverified , 06/06/20) LISA FIELDS NP Mar 07, 2021 09:40
[2021-03-07 15:11] VITALS: BP 129/75
--- NOTE | 2021-03-07 17:04 | IPNPDOC ---
Text Note Date of Service The patient was seen on 03/07/21. NOTE Nurse asked about patient's rash that dr Michel was supposed to consult dermatology about. I discussed with dr Cavazos about the large bilateral buttock, back of thigh sides of thigh, lower abdomen rash and he reviewed some pictures . As per him it is likely fungal rash but need to rule out mycosis fungoides. He recommended starting terbinafine 250 mg daily and to follow up in the dermatology clinic for a skin biopsy to evaluate for mycosis fungoides. recommended to start on fluconazole 200 mg every 4 days for 2 weeks then 200 mg every week for another 4 weeks. VS,Fishbone, I+O VS, Fishbone, I+O Vital Signs Date Time Temp Pulse Resp B/P (MAP) Pulse Ox O2 Delivery O2 Flow Rate FiO2 03/07/21 15:11 97.0 110 14 129/75 (93) 03/07/21 08:09 Room Air 03/06/21 06:00 96 ELODIA MATHEW MD Mar 07, 2021 17:04
--- NOTE | 2021-03-07 18:14 | IPN ---
PROGRESS NOTE DATE: 03/07/2021 Patient seen in mental health unit. He states his foot is feeling a little bit better. LOWER EXTREMITY EXAMINATION: Loosened sutures still present. There is some fibrous tissue within the wound. No extending erythema. No purulent drainage. ASSESSMENT: Patient with right foot ulcer, status post incision and drainage. TREATMENT: Sutures removed. Continue Vashe dressings, Hydrofera Blue, OptiLock daily. Surgical shoe to be dispensed.
[2021-03-07] MEDS: FLUCONAZOLE 100 MG TAB PO SCH (20:32)
[2021-03-07] MEDS: LEVEMIR (INSULIN DETEMIR) 1 UNITS/0.01ML SC SCH (20:32)
[2021-03-08] MEDS: IBUPROFEN 800 MG TAB PO PRN ×2 (01:54→19:26)
[2021-03-08 06:34] VITALS: BP 134/71
[2021-03-08] MEDS: NICOTINE 14 MG/24 HR TRANSDERMAL TD SCH (08:35)
[2021-03-08] MEDS: CEFDINIR 300 MG CAP (OMNICEF) PO SCH ×2 (08:36→20:15)
[2021-03-08] MEDS: ASPIRIN 81 MG CHEW TABLET PO SCH (08:36)
[2021-03-08] MEDS: metFORMIN XR 500MG TAB *GLUCOPHAGE XR PO SCH ×2 (08:36→17:19)
[2021-03-08] MEDS: ATORVASTATIN 20 MG TAB PO SCH (08:36)
[2021-03-08] MEDS: risperiDONE 2 MG TAB PO SCH ×2 (08:37→20:15)
--- NOTE | 2021-03-08 13:04 | MHIPNPDOC ---
[facility] Progress Note Progress Note DATE OF SERVICE: 03/08/21 HISTORY: Patient is a 60-year-old Single, Disabled, Undomiciled, male with prior psychiatric history who was admitted after he was brought by his health care facilities inspector to the hospital. He was hearing voices. Apparently, he reported that he is homeless, but he is not. The patient was also voicing that he was hearing God's voice and he was very religiously preoccupied and his thinking is very disorganized, so obviously, patient is not able to care for himself at this point and was admitted. He continued to be very disorganized and he continues to have roman catholic-type delusions about God talking to him and basically, I am not really able to get much of a history from him. PER ED REPORT: Pt was brought in by rent control office manager Ludin Castanon. PSA met with pt at bedside. Pt is [place], when asked why he was here pt stated "because God told me to come here today, there is a reason for everything." Pt denies SI/HI stating "God put me here." When asked if he experiences AH/VH pt stated "I hear nothing I only hear what God wants me to hear and see, the devil is a liar to me here." When pt was asked who he lives with pt stated "I can't answer that, God tells me when to speak, when to move, etc." Pt was very religiously preoccupied, and unable to coherently answer any questions. Every question pt was asked pt responded with a roman catholic answer. PSA contacted Pt rent control office manager Ludin Castanon and left voicemail. Pt was discharged from a medical floor on 02/27/21 and reported to ED on 02/28/21 for being homeless. PATRICIO Mckee LCSW met with pt on this visit and pt did not seem to be religiously preoccupied, although did make a small roman catholic comment at end of interview. At this point in time pt is in no capacity to be safely discharged. VITAL SIGNS: See below. NEW TEST RESULTS: . CURRENT MEDICATIONS: See below. MENTAL STATUS EXAMINATION: Patient is a 60-year-old Single, Disabled, Undomiciled, male with prior psychiatric history who was admitted after he was brought by his health care facilities inspector to the hospital. He was hearing voices. Appearance: Unkempt, disheveled Behavior: Cooperative Eye Contact: Fair Speech: slow rate, tone and loud volume Language skills are intact Thought processes including: loose Thought content: denies depression and anxiety. Denies suicidal/homicidal ideation, planning or intent. Abstract reasoning, and computation: fair Description of associations: religiously preoccupied and answers with roman catholic filled speech Description of abnormal or psychotic thoughts:none observed Judgment: impaired Insight: impaired Orientation: alert and oriented to person, place, time and situation Recent and remote memory: intact Attention span and concentration: improving Language: average Fund of knowledge: average Mood:euphoric Affect: reactive DIAGNOSES: Schizophrenia, Paranoid Type Cannabis Use Disorder ASSESSMENT: Patient is extremely hard of hearing, the provider used the computer to type out questions. He states that he is doing really well because he is hearing God, that he loves God and that God is telling him to do things. He states that he has nerve damage all over his body "it's pinching." Patient then begins to have a conversation about Manjeet and that he is like Manjeet "strong" Much of his conversation was religiously filled with biblical characters. He was disorganized in his dress (pants were on backwards). Barriers to discharge: 1)Symptoms are so tenuous that immediate rehospitalization is highly likely if he was discharged, 2) He continues to have symptoms of psychosis 3) Patient is not sufficiently stable for discharge MANAGEMENT PLAN: Continue all medications as ordered, will discharge when stable. TIME SPENT: 25 minutes. Vital Signs Vital Signs Date Time Temp Pulse Resp B/P (MAP) Pulse Ox O2 Delivery O2 Flow Rate FiO2 03/08/21 08:38 142/85 03/08/21 06:34 97.7 105 16 98 Room Air Laboratory Data 24H Labs Laboratory Tests 2 03/07/21 20:27: Bedside Glucose (Misc Panel) 234H Current Medications Current Medications Medications (Trade) Dose Ordered Sig/Dar Route PRN Reason Start Time Stop Time Status Last Admin Dose Admin Acetaminophen (Tylenol Tab) 650 mg Q6HP PRN PO HEADACHE or DISCOMFORT 03/02/21 14:20 03/06/21 18:20 Al Hydrox/Mg Hydrox/Simethicone (Mylanta) 30 ml Q4HP PRN PO HEARTBURN/INDIGESTION 03/02/21 14:20 03/03/21 17:34 Aripiprazole (AbiLIFY) 5 mg DAILY PO 03/03/21 09:00 03/06/21 08:15 DC 03/05/21 08:49 Aspirin (Aspirin Chewable) 81 mg DAILY PO 03/03/21 09:00 03/08/21 08:36 Atorvastatin Calcium (Lipitor) 40 mg DAILY PO 03/03/21 09:00 03/08/21 08:36 Cefdinir (Omnicef) 300 mg BID PO 03/02/21 21:00 03/12/21 23:55 03/08/21 08:36 Diphenhydramine HCl (Benadryl) 25 mg Q8HP PRN PO ITCHING 03/04/21 17:00 03/07/21 00:36 Docusate Sodium (Colace) 100 mg BID PRN PO CONSTIPATION 03/02/21 16:40 Doxycycline Hyclate (Vibramycin) 100 mg BID PO 03/02/21 21:00 03/05/21 14:39 DC 03/05/21 08:50 Fluconazole (Diflucan Tablet) 200 mg Mo@0900 PO 03/26/21 09:00 04/16/21 09:01 Fluconazole (Diflucan Tablet) 200 mg Q4D PO 03/07/21 09:00 03/21/21 08:59 03/07/21 20:32 Haloperidol (Haldol) 5 mg Q6HP PRN PO ANXIETY/AGITATION 03/02/21 14:20 03/05/21 03:16 Home Med (Med Rec Complete!) ASDIRECTED XX 03/02/21 15:05 03/02/21 15:05 DC Ibuprofen (Advil) 800 mg Q8HP PRN PO MODERATE PAIN (PS 5-7) 03/04/21 14:15 03/08/21 01:54 Insulin Detemir (Levemir Insulin) 50 units QHS SC 03/02/21 21:00 03/07/21 20:32 Lisinopril (Prinivil) 10 mg DAILY PO 03/03/21 09:00 03/08/21 08:38 Lorazepam (Ativan) 1 mg Q6HP PRN PO ANXIETY/AGITATION 03/02/21 14:20 03/07/21 00:36 Magnesium Hydroxide (Milk Of Magnesia) 30 ml DAILYPRN PRN PO CONSTIPATION 6/11/21 14:20 Metformin HCl (Glucophage Xr) 500 mg BIDWM PO 03/02/21 18:00 03/08/21 08:36 Miscellaneous (Unresolved Clarification Entry) SEE LABEL COMMENTS DAILY XX 03/07/21 09:00 03/07/21 16:05 DC Nicotine (Nicoderm Cq 14mg) 1 patch DAILY TD 03/04/21 09:00 03/08/21 08:35 Risperidone (RisperDAL) 2 mg BID PO 03/06/21 09:00 03/08/21 08:37 Trazodone HCl (Desyrel) 50 mg QHSP PRN PO INSOMNIA 03/02/21 14:20 03/07/21 20:32 Allergies Coded Allergies: No Known Allergies (Unverified , 06/06/20) LISA FIELDS NP Mar 08, 2021 13:04
[2021-03-08 17:34] VITALS: BP 150/70
[2021-03-08] MEDS: LEVEMIR (INSULIN DETEMIR) 1 UNITS/0.01ML SC SCH (20:15)
[2021-03-09 05:42] VITALS: BP 129/71
[2021-03-09] MEDS: ASPIRIN 81 MG CHEW TABLET PO SCH (09:04)
[2021-03-09] MEDS: risperiDONE 2 MG TAB PO SCH ×2 (09:09→20:00)
[2021-03-09] MEDS: ATORVASTATIN 20 MG TAB PO SCH (09:10)
[2021-03-09] MEDS: CEFDINIR 300 MG CAP (OMNICEF) PO SCH ×2 (09:10→20:00)
[2021-03-09] MEDS: NICOTINE 14 MG/24 HR TRANSDERMAL TD SCH (09:11)
[2021-03-09] MEDS: metFORMIN XR 500MG TAB *GLUCOPHAGE XR PO SCH ×2 (09:12→17:03)
--- NOTE | 2021-03-09 13:13 | MHIPNPDOC ---
[facility] Progress Note Progress Note DATE OF SERVICE: 03/09/21 HISTORY: Patient is a 60-year-old Single, Disabled, Undomiciled, male with prior psychiatric history who was admitted after he was brought by his child care to the hospital. He was hearing voices. Apparently, he reported that he is homeless, but he is not. The patient was also voicing that he was hearing God's voice and he was very religiously preoccupied and his thinking is very disorganized, so obviously, patient is not able to care for himself at this point and was admitted. He continued to be very disorganized and he continues to have gnosticist-type delusions about God talking to him and basically, I am not really able to get much of a history from him. PER ED REPORT: Pt was brought in by travel agency manager Ludin Castanon. PSA met with pt at bedside. Pt is [place], when asked why he was here pt stated "because God told me to come here today, there is a reason for everything." Pt denies SI/HI stating "God put me here." When asked if he experiences AH/VH pt stated "I hear nothing I only hear what God wants me to hear and see, the devil is a liar to me here." When pt was asked who he lives with pt stated "I can't answer that, God tells me when to speak, when to move, etc." Pt was very religiously preoccupied, and unable to coherently answer any questions. Every question pt was asked pt responded with a gnosticist answer. PSA contacted Pt travel agency manager Ludin Castanon and left voicemail. Pt was discharged from a medical floor on 02/27/21 and reported to ED on 02/28/21 for being homeless. PATRICIO Mckee LCSW met with pt on this visit and pt did not seem to be religiously preoccupied, although did make a small gnosticist comment at end of interview. At this point in time pt is in no capacity to be safely discharged. VITAL SIGNS: See below. NEW TEST RESULTS: . CURRENT MEDICATIONS: See below. MENTAL STATUS EXAMINATION: Patient is a 60-year-old Single, Disabled, Undomiciled, male with prior psychiatric history who was admitted after he was brought by his child care to the hospital. He was hearing voices. Appearance: Fairly Kempt, Hygiene and Grooming is good, recently showered Behavior: Cooperative Eye Contact: good Speech: normal rate, tone and loud volume Language skills are intact Thought processes including: loose Thought content: denies depression and anxiety. Denies suicidal/homicidal ideation, planning or intent. Abstract reasoning, and computation: fair Description of associations: religiously preoccupied and answers with gnosticist filled speech Description of abnormal or psychotic thoughts:none observed Judgment: impaired Insight: impaired Orientation: alert and oriented to person, place, time and situation Recent and remote memory: intact Attention span and concentration: improving Language: average Fund of knowledge: average Mood:euphoric Affect: reactive DIAGNOSES: Schizophrenia, Paranoid Type Cannabis Use Disorder ASSESSMENT: Patient continues to be religiously preoccupied, states that God is guiding him to "save my money and exercise" He states "I need to do sit ups and push ups, I need to exercise. I am a [employer] Again J[employer]." He reports "I feel good but I am tired, my foot is better." He denies depression and then states "I want to be a responsible person, God guides me. I do not want to go back to [employer] . I can't go there I was almost killed there" He further reports that when he is discharged his plans are to go to [employer] and get two hearing aids, a back pack and save for glasses and dentures. Barriers to discharge: 1)Symptoms are so tenuous that immediate rehospitalization is highly likely if he was discharged, 2) He continues to have symptoms of psychosis 3) Patient is not sufficiently stable for discharge MANAGEMENT PLAN: Continue all medications as ordered, will discharge when stable. TIME SPENT: 25 minutes. Vital Signs Vital Signs Date Time Temp Pulse Resp B/P (MAP) Pulse Ox O2 Delivery O2 Flow Rate FiO2 03/09/21 09:09 128/74 03/09/21 05:42 97.3 96 18 100 Room Air Laboratory Data 24H Labs Laboratory Tests 2 03/08/21 20:13: Bedside Glucose (Misc Panel) 178H Current Medications Current Medications Medications (Trade) Dose Ordered Sig/Dar Route PRN Reason Start Time Stop Time Status Last Admin Dose Admin Acetaminophen (Tylenol Tab) 650 mg Q6HP PRN PO HEADACHE or DISCOMFORT 03/02/21 14:20 03/06/21 18:20 Al Hydrox/Mg Hydrox/Simethicone (Mylanta) 30 ml Q4HP PRN PO HEARTBURN/INDIGESTION 03/02/21 14:20 03/03/21 17:34 Aripiprazole (AbiLIFY) 5 mg DAILY PO 03/03/21 09:00 03/06/21 08:15 DC 03/05/21 08:49 Aspirin (Aspirin Chewable) 81 mg DAILY PO 03/03/21 09:00 03/09/21 09:04 Atorvastatin Calcium (Lipitor) 40 mg DAILY PO 03/03/21 09:00 03/09/21 09:10 Cefdinir (Omnicef) 300 mg BID PO 03/02/21 21:00 03/12/21 23:55 03/09/21 09:10 Diphenhydramine HCl (Benadryl) 25 mg Q8HP PRN PO ITCHING 03/04/21 17:00 03/07/21 00:36 Docusate Sodium (Colace) 100 mg BID PRN PO CONSTIPATION 03/02/21 16:40 Doxycycline Hyclate (Vibramycin) 100 mg BID PO 03/02/21 21:00 03/05/21 14:39 DC 03/05/21 08:50 Fluconazole (Diflucan Tablet) 200 mg Mo@0900 PO 03/26/21 09:00 04/16/21 09:01 Fluconazole (Diflucan Tablet) 200 mg Q4D PO 03/07/21 09:00 03/21/21 08:59 03/07/21 20:32 Haloperidol (Haldol) 5 mg Q6HP PRN PO ANXIETY/AGITATION 03/02/21 14:20 03/05/21 03:16 Home Med (Med Rec Complete!) ASDIRECTED XX 03/02/21 15:05 03/02/21 15:05 DC Ibuprofen (Advil) 800 mg Q8HP PRN PO MODERATE PAIN (PS 5-7) 03/04/21 14:15 03/08/21 19:26 Insulin Detemir (Levemir Insulin) 50 units QHS SC 03/02/21 21:00 03/08/21 20:15 Lisinopril (Prinivil) 10 mg DAILY PO 03/03/21 09:00 03/09/21 09:09 Lorazepam (Ativan) 1 mg Q6HP PRN PO ANXIETY/AGITATION 03/02/21 14:20 03/07/21 00:36 Magnesium Hydroxide (Milk Of Magnesia) 30 ml DAILYPRN PRN PO CONSTIPATION 03/02/21 14:20 Metformin HCl (Glucophage Xr) 500 mg BIDWM PO 03/02/21 18:00 03/09/21 09:12 Miscellaneous (Unresolved Clarification Entry) SEE LABEL COMMENTS DAILY XX 03/07/21 09:00 03/07/21 16:05 DC Nicotine (Nicoderm Cq 14mg) 1 patch DAILY TD 03/04/21 09:00 03/09/21 09:11 Risperidone (RisperDAL) 2 mg BID PO 03/06/21 09:00 03/09/21 09:09 Trazodone HCl (Desyrel) 50 mg QHSP PRN PO INSOMNIA 03/02/21 14:20 03/07/21 20:32 Allergies Coded Allergies: No Known Allergies (Unverified , 06/06/20) LISA FIELDS NP Mar 09, 2021 13:13
[2021-03-09 16:41] VITALS: BP 135/65
[2021-03-09] MEDS: traZODone 50 MG TAB PO PRN (20:00)
[2021-03-09] MEDS: IBUPROFEN 800 MG TAB PO PRN (20:01)
[2021-03-09] MEDS: LEVEMIR (INSULIN DETEMIR) 1 UNITS/0.01ML SC SCH (20:03)
[2021-03-10 07:31] VITALS: BP 121/65
[2021-03-10] MEDS: risperiDONE 2 MG TAB PO SCH ×2 (08:32→20:30)
[2021-03-10] MEDS: metFORMIN XR 500MG TAB *GLUCOPHAGE XR PO SCH ×2 (08:32→17:59)
[2021-03-10] MEDS: CEFDINIR 300 MG CAP (OMNICEF) PO SCH ×2 (08:32→20:30)
[2021-03-10] MEDS: ATORVASTATIN 20 MG TAB PO SCH (08:32)
[2021-03-10] MEDS: ASPIRIN 81 MG CHEW TABLET PO SCH (08:32)
[2021-03-10] MEDS: NICOTINE 14 MG/24 HR TRANSDERMAL TD SCH (08:32)
[2021-03-10 16:29] VITALS: BP 129/76
[2021-03-10] MEDS: LEVEMIR (INSULIN DETEMIR) 1 UNITS/0.01ML SC SCH (20:29)
[2021-03-11 06:17] VITALS: BP 128/95
[2021-03-11] MEDS: risperiDONE 2 MG TAB PO SCH ×2 (08:05→20:13)
[2021-03-11] MEDS: metFORMIN XR 500MG TAB *GLUCOPHAGE XR PO SCH ×2 (08:05→20:14)
[2021-03-11] MEDS: ASPIRIN 81 MG CHEW TABLET PO SCH (08:05)
[2021-03-11] MEDS: FLUCONAZOLE 100 MG TAB PO SCH (08:06)
[2021-03-11] MEDS: NICOTINE 14 MG/24 HR TRANSDERMAL TD SCH (08:06)
[2021-03-11] MEDS: CEFDINIR 300 MG CAP (OMNICEF) PO SCH ×2 (08:06→20:13)
[2021-03-11] MEDS: ATORVASTATIN 20 MG TAB PO SCH (08:06)
[2021-03-11 17:34] VITALS: BP 123/71
[2021-03-11] MEDS: LEVEMIR (INSULIN DETEMIR) 1 UNITS/0.01ML SC SCH (20:13)
[2021-03-11] MEDS: IBUPROFEN 800 MG TAB PO PRN (22:20)
[2021-03-12] MEDS: LORazepam 1 MG TAB PO PRN (03:33)
[2021-03-12 06:41] VITALS: BP 126/69
[2021-03-12] MEDS: metFORMIN XR 500MG TAB *GLUCOPHAGE XR PO SCH ×2 (08:54→17:29)
[2021-03-12] MEDS: CEFDINIR 300 MG CAP (OMNICEF) PO SCH ×2 (08:54→21:05)
[2021-03-12] MEDS: ATORVASTATIN 20 MG TAB PO SCH (08:54)
[2021-03-12] MEDS: risperiDONE 2 MG TAB PO SCH ×2 (08:54→21:05)
[2021-03-12] MEDS: ASPIRIN 81 MG CHEW TABLET PO SCH (08:55)
[2021-03-12] MEDS: NICOTINE 14 MG/24 HR TRANSDERMAL TD SCH (08:55)
--- NOTE | 2021-03-12 13:31 | MHIPNPDOC ---
[facility] Progress Note Progress Note DATE OF SERVICE: 03/12/21 HISTORY: Patient is a 60-year-old Single, Disabled, Undomiciled, male with prior psychiatric history who was admitted after he was brought by his career technical counselor to the hospital. He was hearing voices. Apparently, he reported that he is homeless, but he is not. The patient was also voicing that he was hearing God's voice and he was very religiously preoccupied and his thinking is very disorganized, so obviously, patient is not able to care for himself at this point and was admitted. He continued to be very disorganized and he continues to have orthodoxy-type delusions about God talking to him and basically, I am not really able to get much of a history from him. VITAL SIGNS: See below. NEW TEST RESULTS: . CURRENT MEDICATIONS: See below. MENTAL STATUS EXAMINATION: Patient is a 60-year-old Single, Disabled, Undomiciled, male with prior psychiatric history who was admitted after he was brought by his career technical counselor to the hospital. He was hearing voices. Appearance: Fairly Kempt, Hygiene and Grooming is good, recently showered Behavior: Cooperative Eye Contact: good Speech: normal rate, tone and loud volume Language skills are intact Thought processes including: loose Thought content: denies depression and anxiety. Denies suicidal/homicidal ideation, planning or intent. Abstract reasoning, and computation: fair Description of associations: religiously preoccupied but his answers are not f illed with orthodoxy ideations Description of abnormal or psychotic thoughts:none observed Judgment: impaired Insight: impaired Orientation: alert and oriented to person, place, time and situation Recent and remote memory: intact Attention span and concentration: improving Language: average Fund of knowledge: average Mood:euthymic Affect: reactive DIAGNOSES: Schizophrenia, Paranoid Type Cannabis Use Disorder ASSESSMENT: Patient reports his sleep and appetite has returned, denies depression and anxiety. He is however reporting that he cannot return to his place due tot he infestation. He reports that if he were to return to his place, he may be hurt or that he would get into a verbal argument with someone. He feels strongly that if he were discharged without a safe discharge plan that he would return MANAGEMENT PLAN: Continue all medications as ordered, will discharge when sta ble. TIME SPENT: 25 minutes. Vital Signs Vital Signs Date Time Temp Pulse Resp B/P (MAP) Pulse Ox O2 Delivery O2 Flow Rate FiO2 6/21/21 08:55 133/68 03/12/21 08:50 Room Air 03/12/21 06:41 97.7 98 18 96 Laboratory Data 24H Labs Laboratory Tests 2 03/11/21 20:10: Bedside Glucose (Misc Panel) 251H Current Medications Current Medications Medications (Trade) Dose Ordered Sig/Dar Route PRN Reason Start Time Stop Time Status Last Admin Dose Admin Acetaminophen (Tylenol Tab) 650 mg Q6HP PRN PO HEADACHE or DISCOMFORT 03/02/21 14:20 03/06/21 18:20 Al Hydrox/Mg Hydrox/Simethicone (Mylanta) 30 ml Q4HP PRN PO HEARTBURN/INDIGESTION 03/02/21 14:20 03/03/21 17:34 Aripiprazole (AbiLIFY) 5 mg DAILY PO 03/03/21 09:00 03/06/21 08:15 DC 03/05/21 08:49 Aspirin (Aspirin Chewable) 81 mg DAILY PO 03/03/21 09:00 03/12/21 08:55 Atorvastatin Calcium (Lipitor) 40 mg DAILY PO 03/03/21 09:00 03/12/21 08:54 Cefdinir (Omnicef) 300 mg BID PO 03/02/21 21:00 03/12/21 23:55 03/12/21 08:54 Diphenhydramine HCl (Benadryl) 25 mg Q8HP PRN PO ITCHING 03/04/21 17:00 03/07/21 00:36 Docusate Sodium (Colace) 100 mg BID PRN PO CONSTIPATION 03/02/21 16:40 03/09/21 21:21 Doxycycline Hyclate (Vibramycin) 100 mg BID PO 03/02/21 21:00 03/05/21 14:39 DC 03/05/21 08:50 Fluconazole (Diflucan Tablet) 200 mg Mo@0900 PO 03/26/21 09:00 04/16/21 09:01 Fluconazole (Diflucan Tablet) 200 mg Q4D PO 03/07/21 09:00 03/21/21 08:59 03/11/21 08:06 Haloperidol (Haldol) 5 mg Q6HP PRN PO ANXIETY/AGITATION 03/02/21 14:20 03/05/21 03:16 Home Med (Med Rec Complete!) ASDIRECTED XX 03/02/21 15:05 03/02/21 15:05 DC Ibuprofen (Advil) 800 mg Q8HP PRN PO MODERATE PAIN (PS 5-7) 03/04/21 14:15 03/11/21 22:20 Insulin Detemir (Levemir Insulin) 50 units QHS SC 03/02/21 21:00 03/11/21 20:13 Lisinopril (Prinivil) 10 mg DAILY PO 03/03/21 09:00 03/12/21 08:55 Lorazepam (Ativan) 1 mg Q6HP PRN PO ANXIETY/AGITATION 03/02/21 14:20 03/12/21 03:33 Magnesium Hydroxide (Milk Of Magnesia) 30 ml DAILYPRN PRN PO CONSTIPATION 03/02/21 14:20 03/09/21 21:21 Metformin HCl (Glucophage Xr) 500 mg BIDWM PO 03/02/21 18:00 03/12/21 08:54 Miscellaneous (Unresolved Clarification Entry) SEE LABEL COMMENTS DAILY XX 03/07/21 09:00 03/07/21 16:05 DC Miscellaneous (Unresolved Clarification Entry) SEE LABEL COMMENTS DAILY XX 03/11/21 09:00 03/11/21 09:08 DC Nicotine (Nicoderm Cq 14mg) 1 patch DAILY TD 03/04/21 09:00 03/12/21 08:55 Risperidone (RisperDAL) 2 mg BID PO 03/06/21 09:00 03/12/21 08:54 Trazodone HCl (Desyrel) 50 mg QHSP PRN PO INSOMNIA 03/02/21 14:20 03/09/21 20:00 Allergies Coded Allergies: No Known Allergies (Unverified , 06/06/20) LISA FIELDS SQUEEZER OPERATOR Mar 12, 2021 13:31
[2021-03-12 16:16] VITALS: BP 145/71
[2021-03-12] MEDS: IBUPROFEN 800 MG TAB PO PRN (18:19)
[2021-03-12] MEDS: LEVEMIR (INSULIN DETEMIR) 1 UNITS/0.01ML SC SCH (21:05)
[2021-03-12] MEDS: traZODone 50 MG TAB PO PRN (21:07)
[2021-03-13 06:10] VITALS: BP 150/72
[2021-03-13] MEDS: NICOTINE 14 MG/24 HR TRANSDERMAL TD SCH (08:42)
[2021-03-13] MEDS: ATORVASTATIN 20 MG TAB PO SCH (08:42)
[2021-03-13] MEDS: metFORMIN XR 500MG TAB *GLUCOPHAGE XR PO SCH ×2 (08:42→17:04)
[2021-03-13] MEDS: risperiDONE 2 MG TAB PO SCH ×2 (08:42→20:05)
[2021-03-13] MEDS: ASPIRIN 81 MG CHEW TABLET PO SCH (08:43)
--- NOTE | 2021-03-13 10:40 | MHIPNPDOC ---
[facility] Progress Note Progress Note DATE OF SERVICE: 03/13/21 HISTORY: Patient is a 60-year-old Single, Disabled, Undomiciled, male with prior psychiatric history who was admitted after he was brought by his medicare compliance auditor to the hospital. He was hearing voices. Apparently, he reported that he is homeless, but he is not. The patient was also voicing that he was hearing God's voice and he was very religiously preoccupied and his thinking is very disorganized, so obviously, patient is not able to care for himself at this point and was admitted. He continued to be very disorganized and he continues to have protestant-type delusions about God talking to him and basically, I am not really able to get much of a history from him. VITAL SIGNS: See below. NEW TEST RESULTS: . CURRENT MEDICATIONS: See below. MENTAL STATUS EXAMINATION: Patient is a 60-year-old Single, Disabled, Undomiciled, male with prior psychiatric history who was admitted after he was brought by his medicare compliance auditor to the hospital. He was hearing voices. Appearance: Fairly Kempt, Hygiene and Grooming is good, recently showered, shaved his head Behavior: Cooperative Eye Contact: good Speech: normal rate, tone and loud volume Language skills are intact Thought processes including: more linear Thought content: denies depression and anxiety. Denies suicidal/homicidal ideation, planning or intent. Abstract reasoning, and computation: fair Description of associations: less religiously preoccupied today Description of abnormal or psychotic thoughts:none observed Judgment: impaired Insight: impaired Orientation: alert and oriented to person, place, time and situation Recent and remote memory: intact Attention span and concentration: improving Language: average Fund of knowledge: average Mood:euthymic Affect: reactive DIAGNOSES: Schizophrenia, Paranoid Type Cannabis Use Disorder ASSESSMENT: Patient states that he needs a dentist, he states "I only have pain when I walk on my feet" Encouraged patient to keep feet up. Denies depression and anxiety. denies suicidal ideation. Per principal planner - pt has auditory hallucinations that tell him to kill himself/God tells him to. Patient's returned case inspector reports that patient has zero finances and cannot find housing for patient. Patient reports being stable, and when asked about being discharged he stated that he would return to the hospital without a safe discharge. "I would come back here because I don't have money, I don't have a place to stay, that is safe. I don't think it's safe for me to go back to that place." MANAGEMENT PLAN: Continue all medications as ordered, will discharge when stable. TIME SPENT: 25 minutes. Vital Signs Vital Signs Date Time Temp Pulse Resp B/P (MAP) Pulse Ox O2 Delivery O2 Flow Rate FiO2 03/13/21 08:42 130/64 03/13/21 06:10 98.4 89 18 100 Room Air Laboratory Data 24H Labs Laboratory Tests 2 03/12/21 20:59: Bedside Glucose (Misc Panel) 265H Current Medications Current Medications Medications (Trade) Dose Ordered Sig/Dar Route PRN Reason Start Time Stop Time Status Last Admin Dose Admin Acetaminophen (Tylenol Tab) 650 mg Q6HP PRN PO HEADACHE or DISCOMFORT 03/02/21 14:20 03/06/21 18:20 Al Hydrox/Mg Hydrox/Simethicone (Mylanta) 30 ml Q4HP PRN PO HEARTBURN/INDIGESTION 03/02/21 14:20 03/03/21 17:34 Aripiprazole (AbiLIFY) 5 mg DAILY PO 03/03/21 09:00 03/06/21 08:15 DC 03/05/21 08:49 Aspirin (Aspirin Chewable) 81 mg DAILY PO 03/03/21 09:00 03/13/21 08:43 Atorvastatin Calcium (Lipitor) 40 mg DAILY PO 03/03/21 09:00 03/13/21 08:42 Cefdinir (Omnicef) 300 mg BID PO 03/02/21 21:00 03/12/21 23:55 DC 03/12/21 21:05 Diphenhydramine HCl (Benadryl) 25 mg Q8HP PRN PO ITCHING 03/04/21 17:00 03/07/21 00:36 Docusate Sodium (Colace) 100 mg BID PRN PO CONSTIPATION 03/02/21 16:40 03/09/21 21:21 Doxycycline Hyclate (Vibramycin) 100 mg BID PO 03/02/21 21:00 03/05/21 14:39 DC 03/05/21 08:50 Fluconazole (Diflucan Tablet) 200 mg Mo@0900 PO 03/26/21 09:00 04/16/21 09:01 Fluconazole (Diflucan Tablet) 200 mg Q4D PO 03/07/21 09:00 03/21/21 08:59 03/11/21 08:06 Haloperidol (Haldol) 5 mg Q6HP PRN PO ANXIETY/AGITATION 03/02/21 14:20 03/05/21 03:16 Home Med (Med Rec Complete!) ASDIRECTED XX 03/02/21 15:05 03/02/21 15:05 DC Ibuprofen (Advil) 800 mg Q8HP PRN PO MODERATE PAIN (PS 5-7) 03/04/21 14:15 03/12/21 18:19 Insulin Detemir (Levemir Insulin) 50 units QHS SC 03/02/21 21:00 03/12/21 21:05 Lisinopril (Prinivil) 10 mg DAILY PO 03/03/21 09:00 03/13/21 08:42 Lorazepam (Ativan) 1 mg Q6HP PRN PO ANXIETY/AGITATION 03/02/21 14:20 03/12/21 03:33 Magnesium Hydroxide (Milk Of Magnesia) 30 ml DAILYPRN PRN PO CONSTIPATION 03/02/21 14:20 03/09/21 21:21 Metformin HCl (Glucophage Xr) 500 mg BIDWM PO 03/02/21 18:00 03/13/21 08:42 Miscellaneous (Unresolved Clarification Entry) SEE LABEL COMMENTS DAILY XX 03/07/21 09:00 03/07/21 16:05 DC Miscellaneous (Unresolved Clarification Entry) SEE LABEL COMMENTS DAILY XX 03/11/21 09:00 03/11/21 09:08 DC Nicotine (Nicoderm Cq 14mg) 1 patch DAILY TD 03/04/21 09:00 03/13/21 08:42 Risperidone (RisperDAL) 2 mg BID PO 03/06/21 09:00 03/13/21 08:42 Trazodone HCl (Desyrel) 50 mg QHSP PRN PO INSOMNIA 03/02/21 14:20 03/12/21 21:07 Allergies Coded Allergies: No Known Allergies (Unverified , 06/06/20) LISA FIELDS CERTIFIED NURSE AIDE Mar 13, 2021 10:32
[2021-03-13 16:16] VITALS: BP 132/73
[2021-03-13] MEDS: LEVEMIR (INSULIN DETEMIR) 1 UNITS/0.01ML SC SCH (20:05)
[2021-03-13] MEDS: traZODone 50 MG TAB PO PRN (20:05)
[2021-03-14] MEDS: IBUPROFEN 800 MG TAB PO PRN ×2 (03:26→22:37)
[2021-03-14 06:01] VITALS: BP 129/60
[2021-03-14] MEDS: metFORMIN XR 500MG TAB *GLUCOPHAGE XR PO SCH ×2 (07:19→17:27)
[2021-03-14] MEDS: risperiDONE 2 MG TAB PO SCH ×2 (08:26→20:15)
[2021-03-14] MEDS: ATORVASTATIN 20 MG TAB PO SCH (08:26)
[2021-03-14] MEDS: NICOTINE 14 MG/24 HR TRANSDERMAL TD SCH (08:27)
[2021-03-14] MEDS: ASPIRIN 81 MG CHEW TABLET PO SCH (08:27)
--- NOTE | 2021-03-14 16:02 | MHIPNPDOC ---
[facility] Progress Note Progress Note DATE OF SERVICE: 03/14/21 HISTORY: Patient is a 60-year-old Single, Disabled, Undomiciled, male with prior psychiatric history who was admitted after he was brought by his critical care physician assistant to the hospital. He was hearing voices. Apparently, he reported that he is homeless, but he is not. The patient was also voicing that he was hearing God's voice and he was very religiously preoccupied and his thinking is very disorganized, so obviously, patient is not able to care for himself at this point and was admitted. He continued to be very disorganized and he continues to have sabianist-type delusions about God talking to him and basically, I am not really able to get much of a history from him. VITAL SIGNS: See below. NEW TEST RESULTS: . CURRENT MEDICATIONS: See below. MENTAL STATUS EXAMINATION: Patient is a 60-year-old Single, Disabled, Undomiciled, male with prior psychiatric history who was admitted after he was brought by his critical care physician assistant to the hospital. He was hearing voices. Appearance: Fairly Kempt, Hygiene and Grooming is good, recently showered, shaved his head Behavior: Cooperative Eye Contact: good Speech: normal rate, tone and loud volume Language skills are intact Thought processes including: more linear Thought content: denies depression and anxiety. Denies suicidal/homicidal ideation, planning or intent. Abstract reasoning, and computation: fair Description of associations: less religiously preoccupied today Description of abnormal or psychotic thoughts:none observed Judgment: impaired Insight: impaired Orientation: alert and oriented to person, place, time and situation Recent and remote memory: intact Attention span and concentration: improving Language: average Fund of knowledge: average Mood:euthymic Affect: reactive DIAGNOSES: Schizophrenia, Paranoid Type Cannabis Use Disorder ASSESSMENT: Patient states that he is in a good place, "God is good to me. I am following the Lord." The patient then trails off and speaks about the book of Susan and becomes more animated when he becomes religiously preoccupied. Denies depression and anxiety, denies any paranoia. He does report that he has sabianist ideations/preoccupations. Patient states that he has feelings of pins and needles in his skin that he complains about. Wants some relief from this. He at this time, remains cooperative on the unit but reports if discharged today he would return to the ED for safety and fears in the community. MANAGEMENT PLAN: Continue all medications as ordered, Gabapentin 100 mg TID for neuropathic pain. Will discharge when stable. Will place on 2 PC due to length of stay TIME SPENT: 25 minutes. Vital Signs Vital Signs Date Time Temp Pulse Resp B/P (MAP) Pulse Ox O2 Delivery O2 Flow Rate FiO2 03/14/21 08:26 123/63 03/14/21 07:45 Room Air 03/14/21 06:01 98.2 84 18 95 Laboratory Data 24H Labs Laboratory Tests 2 03/13/21 19:58: Bedside Glucose (Misc Panel) 229H Current Medications Current Medications Medications (Trade) Dose Ordered Sig/Dar Route PRN Reason Start Time Stop Time Status Last Admin Dose Admin Acetaminophen (Tylenol Tab) 650 mg Q6HP PRN PO HEADACHE or DISCOMFORT 03/02/21 14:20 03/06/21 18:20 Al Hydrox/Mg Hydrox/Simethicone (Mylanta) 30 ml Q4HP PRN PO HEARTBURN/INDIGESTION 03/02/21 14:20 03/03/21 17:34 Aripiprazole (AbiLIFY) 5 mg DAILY PO 03/03/21 09:00 03/06/21 08:15 DC 03/05/21 08:49 Aspirin (Aspirin Chewable) 81 mg DAILY PO 03/03/21 09:00 03/14/21 08:27 Atorvastatin Calcium (Lipitor) 40 mg DAILY PO 03/03/21 09:00 03/14/21 08:26 Cefdinir (Omnicef) 300 mg BID PO 03/02/21 21:00 03/12/21 23:55 DC 03/12/21 21:05 Diphenhydramine HCl (Benadryl) 25 mg Q8HP PRN PO ITCHING 03/04/21 17:00 03/07/21 00:36 Docusate Sodium (Colace) 100 mg BID PRN PO CONSTIPATION 03/02/21 16:40 03/09/21 21:21 Doxycycline Hyclate (Vibramycin) 100 mg BID PO 03/02/21 21:00 03/05/21 14:39 DC 03/05/21 08:50 Fluconazole (Diflucan Tablet) 200 mg Mo@0900 PO 03/26/21 09:00 04/16/21 09:01 Fluconazole (Diflucan Tablet) 200 mg Q4D PO 03/07/21 09:00 03/21/21 08:59 03/11/21 08:06 Haloperidol (Haldol) 5 mg Q6HP PRN PO ANXIETY/AGITATION 03/02/21 14:20 03/05/21 03:16 Home Med (Med Rec Complete!) ASDIRECTED XX 03/02/21 15:05 03/02/21 15:05 DC Ibuprofen (Advil) 800 mg Q8HP PRN PO MODERATE PAIN (PS 5-7) 03/04/21 14:15 03/14/21 03:26 Insulin Detemir (Levemir Insulin) 50 units QHS SC 03/02/21 21:00 03/13/21 20:05 Lisinopril (Prinivil) 10 mg DAILY PO 03/03/21 09:00 03/14/21 08:26 Lorazepam (Ativan) 1 mg Q6HP PRN PO ANXIETY/AGITATION 03/02/21 14:20 03/12/21 03:33 Magnesium Hydroxide (Milk Of Magnesia) 30 ml DAILYPRN PRN PO CONSTIPATION 03/02/21 14:20 03/09/21 21:21 Metformin HCl (Glucophage Xr) 500 mg BIDWM PO 03/02/21 18:00 03/14/21 07:19 Miscellaneous (Unresolved Clarification Entry) SEE LABEL COMMENTS DAILY XX 03/07/21 09:00 03/07/21 16:05 DC Miscellaneous (Unresolved Clarification Entry) SEE LABEL COMMENTS DAILY XX 03/11/21 09:00 03/11/21 09:08 DC Miscellaneous (Unresolved Clarification Entry) SEE LABEL COMMENTS DAILY XX 03/13/21 09:00 03/13/21 16:16 DC Nicotine (Nicoderm Cq 14mg) 1 patch DAILY TD 03/04/21 09:00 03/14/21 08:27 Risperidone (RisperDAL) 2 mg BID PO 03/06/21 09:00 03/14/21 08:26 Trazodone HCl (Desyrel) 50 mg QHSP PRN PO INSOMNIA 03/02/21 14:20 03/13/21 20:05 Allergies Coded Allergies: No Known Allergies (Unverified , 06/06/20) LISA FIELDS [employer] Mar 14, 2021 12:16
[2021-03-14 16:07] VITALS: BP 112/57
[2021-03-14] MEDS: LEVEMIR (INSULIN DETEMIR) 1 UNITS/0.01ML SC SCH (20:14)
[2021-03-14] MEDS: GABAPENTIN 100 MG CAP PO SCH (20:15)
[2021-03-14] MEDS: traZODone 50 MG TAB PO PRN (20:15)
[2021-03-15 06:37] VITALS: BP 136/76
[2021-03-15] MEDS: risperiDONE 2 MG TAB PO SCH ×2 (08:24→20:51)
[2021-03-15] MEDS: ASPIRIN 81 MG CHEW TABLET PO SCH (08:24)
[2021-03-15] MEDS: ATORVASTATIN 20 MG TAB PO SCH (08:24)
[2021-03-15] MEDS: GABAPENTIN 100 MG CAP PO SCH ×3 (08:24→20:51)
[2021-03-15] MEDS: metFORMIN XR 500MG TAB *GLUCOPHAGE XR PO SCH ×2 (08:24→17:33)
[2021-03-15] MEDS: FLUCONAZOLE 100 MG TAB PO SCH (08:25)
[2021-03-15] MEDS: NICOTINE 14 MG/24 HR TRANSDERMAL TD SCH (08:26)
--- NOTE | 2021-03-15 14:00 | MHIPNPDOC ---
[facility] Progress Note Progress Note DATE OF SERVICE: 03/15/21 HISTORY: Patient is a 60-year-old Single, Disabled, Undomiciled, male with prior psychiatric history who was admitted after he was brought by his child care provider to the hospital. He was hearing voices. Apparently, he reported that he is homeless, but he is not. The patient was also voicing that he was hearing God's voice and he was very religiously preoccupied and his thinking is very disorganized, so obviously, patient is not able to care for himself at this point and was admitted. He continued to be very disorganized and he continues to have evangelical-type delusions about God talking to him and basically, I am not really able to get much of a history from him. VITAL SIGNS: See below. NEW TEST RESULTS: . CURRENT MEDICATIONS: See below. MENTAL STATUS EXAMINATION: Patient is a 60-year-old Single, Disabled, Undomiciled, male with prior psychiatric history who was admitted after he was brought by his child care provider to the hospital. He was hearing voices. Appearance: Fairly Kempt, Hygiene and Grooming is good, recently showered, shaved his head Behavior: Cooperative Eye Contact: good Speech: normal rate, tone and loud volume Language skills are intact Thought processes including: linear Thought content: denies depression and anxiety. Denies suicidal/homicidal ideat ion, planning or intent. Abstract reasoning, and computation: fair Description of associations: less religiously preoccupied today Description of abnormal or psychotic thoughts:none observed Judgment: improving Insight: improving Orientation: alert and oriented to person, place, time and situation Recent and remote memory: intact Attention span and concentration: improving Language: average Fund of knowledge: average Mood:euthymic Affect: reactive DIAGNOSES: Schizophrenia, Paranoid Type Cannabis Use Disorder ASSESSMENT: Patient reports that he is doing alright, he is fixated on money and having enough for a bed, states that he cannot leave because if he has to return to his boarding house, he would have to return because he is afraid of the people doing drugs there. He reports that he is hoping to leave next week and he states "I am praying that I can leave and that my God will provider for me. Patient is attending to his ADLs, states "I am doing better, I shower, I eat, I sleep. I just know I can't go back to that place." MANAGEMENT PLAN: Continue all medications as ordered, Gabapentin 100 mg TID for neuropathic pain. Will discharge when stable. Will place on 2 PC due to length of stay TIME SPENT: 15 minutes. Vital Signs Vital Signs Date Time Temp Pulse Resp B/P (MAP) Pulse Ox O2 Delivery O2 Flow Rate FiO2 03/15/21 08:24 134/65 03/15/21 06:37 97.5 90 18 99 Room Air Laboratory Data 24H Labs Laboratory Tests 2 03/14/21 20:12: Bedside Glucose (Misc Panel) 193H Current Medications Current Medications Medications (Trade) Dose Ordered Sig/Dar Route PRN Reason Start Time Stop Time Status Last Admin Dose Admin Acetaminophen (Tylenol Tab) 650 mg Q6HP PRN PO HEADACHE or DISCOMFORT 03/02/21 14:20 03/06/21 18:20 Al Hydrox/Mg Hydrox/Simethicone (Mylanta) 30 ml Q4HP PRN PO HEARTBURN/INDIGESTION 03/02/21 14:20 03/03/21 17:34 Aripiprazole (AbiLIFY) 5 mg DAILY PO 03/03/21 09:00 03/06/21 08:15 DC 03/05/21 08:49 Aspirin (Aspirin Chewable) 81 mg DAILY PO 03/03/21 09:00 03/15/21 08:24 Atorvastatin Calcium (Lipitor) 40 mg DAILY PO 03/03/21 09:00 03/15/21 08:24 Cefdinir (Omnicef) 300 mg BID PO 03/02/21 21:00 03/12/21 23:55 DC 03/12/21 21:05 Diphenhydramine HCl (Benadryl) 25 mg Q8HP PRN PO ITCHING 03/04/21 17:00 03/07/21 00:36 Docusate Sodium (Colace) 100 mg BID PRN PO CONSTIPATION 03/02/21 16:40 03/09/21 21:21 Doxycycline Hyclate (Vibramycin) 100 mg BID PO 03/02/21 21:00 03/05/21 14:39 DC 03/05/21 08:50 Fluconazole (Diflucan Tablet) 200 mg Mo@0900 PO 03/26/21 09:00 04/16/21 09:01 Fluconazole (Diflucan Tablet) 200 mg Q4D PO 03/07/21 09:00 03/21/21 08:59 03/15/21 08:25 Gabapentin (Neurontin) 100 mg TID PO 03/14/21 21:00 03/15/21 08:24 Haloperidol (Haldol) 5 mg Q6HP PRN PO ANXIETY/AGITATION 03/02/21 14:20 03/05/21 03:16 Home Med (Med Rec Complete!) ASDIRECTED XX 03/02/21 15:05 03/02/21 15:05 DC Ibuprofen (Advil) 800 mg Q8HP PRN PO MODERATE PAIN (PS 5-7) 03/04/21 14:15 03/14/21 22:37 Insulin Detemir (Levemir Insulin) 50 units QHS SC 03/02/21 21:00 03/14/21 20:14 Lisinopril (Prinivil) 10 mg DAILY PO 03/03/21 09:00 03/15/21 08:24 Lorazepam (Ativan) 1 mg Q6HP PRN PO ANXIETY/AGITATION 03/02/21 14:20 03/12/21 03:33 Magnesium Hydroxide (Milk Of Magnesia) 30 ml DAILYPRN PRN PO CONSTIPATION 03/02/21 14:20 03/09/21 21:21 Metformin HCl (Glucophage Xr) 500 mg BIDWM PO 03/02/21 18:00 03/15/21 08:24 Miscellaneous (Unresolved Clarification Entry) SEE LABEL COMMENTS DAILY XX 03/07/21 09:00 03/07/21 16:05 DC Miscellaneous (Unresolved Clarification Entry) SEE LABEL COMMENTS DAILY XX 03/11/21 09:00 03/11/21 09:08 DC Miscellaneous (Unresolved Clarification Entry) SEE LABEL COMMENTS DAILY XX 03/13/21 09:00 03/13/21 16:16 DC Nicotine (Nicoderm Cq 14mg) 1 patch DAILY TD 03/04/21 09:00 03/15/21 08:26 Risperidone (RisperDAL) 2 mg BID PO 03/06/21 09:00 03/15/21 08:24 Trazodone HCl (Desyrel) 50 mg QHSP PRN PO INSOMNIA 03/02/21 14:20 03/14/21 20:15 Allergies Coded Allergies: No Known Allergies (Unverified , 06/06/20) LISA FIELDS NP Mar 15, 2021 09:46
[2021-03-15 19:01] VITALS: BP 141/72
[2021-03-15] MEDS: LEVEMIR (INSULIN DETEMIR) 1 UNITS/0.01ML SC SCH (20:54)
[2021-03-15] MEDS: IBUPROFEN 800 MG TAB PO PRN (23:29)
[2021-03-16 06:00] VITALS: BP 120/74
[2021-03-16] MEDS: metFORMIN XR 500MG TAB *GLUCOPHAGE XR PO SCH ×2 (07:44→17:07)
[2021-03-16] MEDS: GABAPENTIN 100 MG CAP PO SCH ×3 (08:15→20:59)
[2021-03-16] MEDS: ASPIRIN 81 MG CHEW TABLET PO SCH (08:15)
[2021-03-16] MEDS: risperiDONE 2 MG TAB PO SCH ×2 (08:16→20:59)
[2021-03-16] MEDS: ATORVASTATIN 20 MG TAB PO SCH (08:16)
[2021-03-16] MEDS: NICOTINE 14 MG/24 HR TRANSDERMAL TD SCH (08:16)
--- NOTE | 2021-03-16 11:21 | MHIPNPDOC ---
[facility] Progress Note Progress Note DATE OF SERVICE: 03/16/21 HISTORY: Patient is a 60-year-old Single, Disabled, Undomiciled, male with prior psychiatric history who was admitted after he was brought by his care coordinator to the hospital. He was hearing voices. Apparently, he reported that he is homeless, but he is not. The patient was also voicing that he was hearing God's voice and he was very religiously preoccupied and his thinking is very disorganized, so obviously, patient is not able to care for himself at this point and was admitted. He continued to be very disorganized and he continues to have taoism-type delusions about God talking to him and basically, I am not really able to get much of a history from him. VITAL SIGNS: See below. NEW TEST RESULTS: . CURRENT MEDICATIONS: See below. MENTAL STATUS EXAMINATION: Patient is a 60-year-old Single, Disabled, Undomiciled, male with prior psychiatric history who was admitted after he was brought by his care coordinator to the hospital. He was hearing voices. Appearance: Fairly Kempt, Hygiene and Grooming is good, recently showered, shaved his head Behavior: Cooperative Eye Contact: good Speech: normal rate, tone and loud volume Language skills are intact Thought processes including: linear Thought content: denies depression and anxiety. Denies suicidal/homicidal ideat ion, planning or intent. Abstract reasoning, and computation: fair Description of associations: less religiously preoccupied today Description of abnormal or psychotic thoughts:none observed Judgment: improving Insight: improving Orientation: alert and oriented to person, place, time and situation Recent and remote memory: intact Attention span and concentration: improving Language: average Fund of knowledge: average Mood:euthymic Affect: reactive DIAGNOSES: Schizophrenia, Paranoid Type Cannabis Use Disorder ASSESSMENT: Patient fixated on money today, focused on the things that he needs in order to live outside of the hospital. States "I also need a good Bible. God needs me, I need him. He is always guiding me." Patient stated he wants to go to school, he reports that his hearing disability forced him to leave school in the 4th grade. Denies depression or anxiety. Feels that once he can have his money, he can be safe to live on his own but again stated that if he had to return to the [facility] housing at [place], he would return to the hospital MANAGEMENT PLAN: Continue all medications as ordered, Gabapentin 100 mg TID for neuropathic pain. Will discharge when stable. Will place on 2 PC due to length of stay TIME SPENT: 15 minutes. Vital Signs Vital Signs Date Time Temp Pulse Resp B/P (MAP) Pulse Ox O2 Delivery O2 Flow Rate FiO2 03/16/21 08:15 129/64 03/16/21 06:00 97.9 94 20 98 03/15/21 06:37 Room Air Laboratory Data 24H Labs Laboratory Tests 2 03/15/21 20:53: Bedside Glucose (Misc Panel) 282H Current Medications Current Medications Medications (Trade) Dose Ordered Sig/Dar Route PRN Reason Start Time Stop Time Status Last Admin Dose Admin Acetaminophen (Tylenol Tab) 650 mg Q6HP PRN PO HEADACHE or DISCOMFORT 03/02/21 14:20 03/06/21 18:20 Al Hydrox/Mg Hydrox/Simethicone (Mylanta) 30 ml Q4HP PRN PO HEARTBURN/INDIGESTION 03/02/21 14:20 03/03/21 17:34 Aripiprazole (AbiLIFY) 5 mg DAILY PO 03/03/21 09:00 03/06/21 08:15 DC 03/05/21 08:49 Aspirin (Aspirin Chewable) 81 mg DAILY PO 03/03/21 09:00 03/16/21 08:15 Atorvastatin Calcium (Lipitor) 40 mg DAILY PO 03/03/21 09:00 03/16/21 08:16 Cefdinir (Omnicef) 300 mg BID PO 03/02/21 21:00 03/12/21 23:55 DC 03/12/21 21:05 Diphenhydramine HCl (Benadryl) 25 mg Q8HP PRN PO ITCHING 03/04/21 17:00 03/07/21 00:36 Docusate Sodium (Colace) 100 mg BID PRN PO CONSTIPATION 03/02/21 16:40 03/09/21 21:21 Doxycycline Hyclate (Vibramycin) 100 mg BID PO 03/02/21 21:00 03/05/21 14:39 DC 03/05/21 08:50 Fluconazole (Diflucan Tablet) 200 mg Mo@0900 PO 03/26/21 09:00 04/16/21 09:01 Fluconazole (Diflucan Tablet) 200 mg Q4D PO 03/07/21 09:00 03/21/21 08:59 03/15/21 08:25 Gabapentin (Neurontin) 100 mg TID PO 03/14/21 21:00 03/16/21 08:15 Haloperidol (Haldol) 5 mg Q6HP PRN PO ANXIETY/AGITATION 03/02/21 14:20 03/05/21 03:16 Home Med (Med Rec Complete!) ASDIRECTED XX 03/02/21 15:05 03/02/21 15:05 DC Ibuprofen (Advil) 800 mg Q8HP PRN PO MODERATE PAIN (PS 5-7) 03/04/21 14:15 03/15/21 23:29 Insulin Detemir (Levemir Insulin) 50 units QHS SC 03/02/21 21:00 03/15/21 20:54 Lisinopril (Prinivil) 10 mg DAILY PO 03/03/21 09:00 03/16/21 08:15 Lorazepam (Ativan) 1 mg Q6HP PRN PO ANXIETY/AGITATION 03/02/21 14:20 03/12/21 03:33 Magnesium Hydroxide (Milk Of Magnesia) 30 ml DAILYPRN PRN PO CONSTIPATION 03/02/21 14:20 03/09/21 21:21 Metformin HCl (Glucophage Xr) 500 mg BIDWM PO 03/02/21 18:00 03/16/21 07:44 Miscellaneous (Unresolved Clarification Entry) SEE LABEL COMMENTS DAILY XX 03/07/21 09:00 03/07/21 16:05 DC Miscellaneous (Unresolved Clarification Entry) SEE LABEL COMMENTS DAILY XX 03/11/21 09:00 03/11/21 09:08 DC Miscellaneous (Unresolved Clarification Entry) SEE LABEL COMMENTS DAILY XX 03/13/21 09:00 03/13/21 16:16 DC Nicotine (Nicoderm Cq 14mg) 1 patch DAILY TD 03/04/21 09:00 03/16/21 08:16 Risperidone (RisperDAL) 2 mg BID PO 03/06/21 09:00 03/16/21 08:16 Trazodone HCl (Desyrel) 50 mg QHSP PRN PO INSOMNIA 03/02/21 14:20 03/14/21 20:15 Allergies Coded Allergies: No Known Allergies (Unverified , 06/06/20) LISA FIELDS NP Mar 16, 2021 11:21
[2021-03-16] MEDS: IBUPROFEN 800 MG TAB PO PRN (15:01)
[2021-03-16 16:07] VITALS: BP 139/70
[2021-03-16] MEDS: traZODone 50 MG TAB PO PRN (20:59)
[2021-03-16] MEDS: LEVEMIR (INSULIN DETEMIR) 1 UNITS/0.01ML SC SCH (20:59)
[2021-03-17 06:14] VITALS: BP 142/71
[2021-03-17] MEDS: metFORMIN XR 500MG TAB *GLUCOPHAGE XR PO SCH ×2 (07:24→17:12)
[2021-03-17] MEDS: GABAPENTIN 100 MG CAP PO SCH ×3 (08:45→20:05)
[2021-03-17] MEDS: ATORVASTATIN 20 MG TAB PO SCH (08:45)
[2021-03-17] MEDS: ASPIRIN 81 MG CHEW TABLET PO SCH (08:45)
[2021-03-17] MEDS: risperiDONE 2 MG TAB PO SCH ×2 (08:45→20:04)
[2021-03-17] MEDS: NICOTINE 14 MG/24 HR TRANSDERMAL TD SCH (08:45)
[2021-03-17 16:30] VITALS: BP 110/58
[2021-03-17] MEDS: LEVEMIR (INSULIN DETEMIR) 1 UNITS/0.01ML SC SCH (20:05)
[2021-03-17] MEDS: IBUPROFEN 800 MG TAB PO PRN (20:07)
[2021-03-18 06:17] VITALS: BP 111/61
[2021-03-18] MEDS: metFORMIN XR 500MG TAB *GLUCOPHAGE XR PO SCH ×2 (07:18→17:00)
[2021-03-18] MEDS: ASPIRIN 81 MG CHEW TABLET PO SCH (08:55)
[2021-03-18] MEDS: ATORVASTATIN 20 MG TAB PO SCH (08:55)
[2021-03-18] MEDS: GABAPENTIN 100 MG CAP PO SCH ×3 (08:55→20:12)
[2021-03-18] MEDS: risperiDONE 2 MG TAB PO SCH ×2 (08:55→20:12)
[2021-03-18] MEDS: NICOTINE 14 MG/24 HR TRANSDERMAL TD SCH (08:56)
[2021-03-18 16:31] VITALS: BP 120/59
[2021-03-18] MEDS: LEVEMIR (INSULIN DETEMIR) 1 UNITS/0.01ML SC SCH (20:14)
[2021-03-18] MEDS: IBUPROFEN 800 MG TAB PO PRN (21:39)
[2021-03-19 06:58] VITALS: BP 111/61
[2021-03-19] MEDS: ASPIRIN 81 MG CHEW TABLET PO SCH (09:18)
[2021-03-19] MEDS: GABAPENTIN 100 MG CAP PO SCH ×3 (09:18→20:11)
[2021-03-19] MEDS: FLUCONAZOLE 100 MG TAB PO SCH (09:18)
[2021-03-19] MEDS: ATORVASTATIN 20 MG TAB PO SCH (09:19)
[2021-03-19] MEDS: NICOTINE 14 MG/24 HR TRANSDERMAL TD SCH (09:19)
[2021-03-19] MEDS: risperiDONE 2 MG TAB PO SCH ×2 (09:19→20:11)
[2021-03-19] MEDS: metFORMIN XR 500MG TAB *GLUCOPHAGE XR PO SCH ×2 (09:21→17:07)
--- NOTE | 2021-03-19 13:29 | MHIPNPDOC ---
[facility] Progress Note Progress Note DATE OF SERVICE: 03/16/21 HISTORY: Patient is a 60-year-old Single, Disabled, Undomiciled, male with prior psychiatric history who was admitted after he was brought by his career and technology education teacher to the hospital. He was hearing voices. Apparently, he reported that he is homeless, but he is not. The patient was also voicing that he was hearing God's voice and he was very religiously preoccupied and his thinking is very disorganized, so obviously, patient is not able to care for himself at this point and was admitted. He continued to be very disorganized and he continues to have samaritan-type delusions about God talking to him and basically, I am not really able to get much of a history from him. VITAL SIGNS: See below. NEW TEST RESULTS: . CURRENT MEDICATIONS: See below. MENTAL STATUS EXAMINATION: Patient is a 60-year-old Single, Disabled, Undomiciled, male with prior psychiatric history who was admitted after he was brought by his career and technology education teacher to the hospital. He was hearing voices. Appearance: Fairly Kempt, Hygiene and Grooming is good, recently showered, shaved his head Behavior: Cooperative Eye Contact: good Speech: normal rate, tone and loud volume Language skills are intact Thought processes including: linear Thought content: denies depression and anxiety. Denies suicidal/homicidal ideat ion, planning or intent. Abstract reasoning, and computation: fair Description of associations: less religiously preoccupied today Description of abnormal or psychotic thoughts:none observed Judgment: improving Insight: improving Orientation: alert and oriented to person, place, time and situation Recent and remote memory: intact Attention span and concentration: improving Language: average Fund of knowledge: average Mood:euthymic Affect: reactive DIAGNOSES: Schizophrenia, Paranoid Type Cannabis Use Disorder ASSESSMENT: Patient states he is "good", he is somewhat fixated on the wound on his right foot. Reports that he is worried about some of his belongings states he lost a backpack in his insulin. He currently denies depression, anxiety, suicidal id eation, homicidal light, planning or intent. He is mildly religiously preoccupied but this symptom is not severe. TIME SPENT: 15 minutes. Vital Signs Vital Signs Date Time Temp Pulse Resp B/P (MAP) Pulse Ox O2 Delivery O2 Flow Rate FiO2 03/19/21 06:58 97.4 96 20 111/61 (78) 97 Room Air Laboratory Data 24H Labs Laboratory Tests 2 03/18/21 20:07: Bedside Glucose (Misc Panel) 246H Current Medications Current Medications Medications (Trade) Dose Ordered Sig/Dar Route PRN Reason Start Time Stop Time Status Last Admin Dose Admin Acetaminophen (Tylenol Tab) 650 mg Q6HP PRN PO HEADACHE or DISCOMFORT 03/02/21 14:20 03/06/21 18:20 Al Hydrox/Mg Hydrox/Simethicone (Mylanta) 30 ml Q4HP PRN PO HEARTBURN/INDIGESTION 03/02/21 14:20 03/03/21 17:34 Aripiprazole (AbiLIFY) 5 mg DAILY PO 03/03/21 09:00 03/06/21 08:15 DC 03/05/21 08:49 Aspirin (Aspirin Chewable) 81 mg DAILY PO 03/03/21 09:00 03/19/21 09:18 Atorvastatin Calcium (Lipitor) 40 mg DAILY PO 03/03/21 09:00 03/19/21 09:19 Cefdinir (Omnicef) 300 mg BID PO 03/02/21 21:00 03/12/21 23:55 DC 03/12/21 21:05 Diphenhydramine HCl (Benadryl) 25 mg Q8HP PRN PO ITCHING 03/04/21 17:00 03/07/21 00:36 Docusate Sodium (Colace) 100 mg BID PRN PO CONSTIPATION 03/02/21 16:40 03/09/21 21:21 Doxycycline Hyclate (Vibramycin) 100 mg BID PO 03/02/21 21:00 03/05/21 14:39 DC 03/05/21 08:50 Fluconazole (Diflucan Tablet) 200 mg Mo@0900 PO 03/26/21 09:00 04/16/21 09:01 Fluconazole (Diflucan Tablet) 200 mg Q4D PO 03/07/21 09:00 03/21/21 08:59 03/19/21 09:18 Gabapentin (Neurontin) 100 mg TID PO 03/14/21 21:00 03/19/21 09:18 Haloperidol (Haldol) 5 mg Q6HP PRN PO ANXIETY/AGITATION 03/02/21 14:20 03/05/21 03:16 Home Med (Med Rec Complete!) ASDIRECTED XX 03/02/21 15:05 03/02/21 15:05 DC Ibuprofen (Advil) 800 mg Q8HP PRN PO MODERATE PAIN (PS 5-7) 03/04/21 14:15 03/18/21 21:39 Insulin Detemir (Levemir Insulin) 50 units QHS SC 03/02/21 21:00 03/18/21 20:14 Lisinopril (Prinivil) 10 mg DAILY PO 03/03/21 09:00 03/19/21 09:19 Lorazepam (Ativan) 1 mg Q6HP PRN PO ANXIETY/AGITATION 03/02/21 14:20 03/18/21 12:21 DC 03/12/21 03:33 Magnesium Hydroxide (Milk Of Magnesia) 30 ml DAILYPRN PRN PO CONSTIPATION 03/02/21 14:20 03/09/21 21:21 Metformin HCl (Glucophage Xr) 500 mg BIDWM PO 03/02/21 18:00 03/19/21 09:21 Miscellaneous (Unresolved Clarification Entry) SEE LABEL COMMENTS DAILY XX 03/07/21 09:00 03/07/21 16:05 DC Miscellaneous (Unresolved Clarification Entry) SEE LABEL COMMENTS DAILY XX 03/11/21 09:00 03/11/21 09:08 DC Miscellaneous (Unresolved Clarification Entry) SEE LABEL COMMENTS DAILY XX 03/13/21 09:00 03/13/21 16:16 DC Nicotine (Nicoderm Cq 14mg) 1 patch DAILY TD 03/04/21 09:00 03/19/21 09:19 Risperidone (RisperDAL) 2 mg BID PO 03/06/21 09:00 03/19/21 09:19 Trazodone HCl (Desyrel) 50 mg QHSP PRN PO INSOMNIA 03/02/21 14:20 03/16/21 20:59 Allergies Coded Allergies: No Known Allergies (Unverified , 06/06/20) LISA FIELDS NP Mar 19, 2021 13:29
[2021-03-19 17:28] VITALS: BP 121/66
[2021-03-19] MEDS: LEVEMIR (INSULIN DETEMIR) 1 UNITS/0.01ML SC SCH (20:11)
[2021-03-20 07:26] VITALS: BP 127/73
[2021-03-20 07:38] VITALS: BP 127/73
[2021-03-20] MEDS: ATORVASTATIN 20 MG TAB PO SCH (09:04)
[2021-03-20] MEDS: GABAPENTIN 100 MG CAP PO SCH ×3 (09:04→20:26)
[2021-03-20] MEDS: risperiDONE 2 MG TAB PO SCH ×2 (09:04→20:26)
[2021-03-20] MEDS: metFORMIN XR 500MG TAB *GLUCOPHAGE XR PO SCH ×2 (09:04→17:09)
[2021-03-20] MEDS: ASPIRIN 81 MG CHEW TABLET PO SCH (09:04)
[2021-03-20] MEDS: NICOTINE 14 MG/24 HR TRANSDERMAL TD SCH (09:05)
--- NOTE | 2021-03-20 13:39 | MHIPNPDOC ---
[facility] Progress Note Progress Note DATE OF SERVICE: 03/20/21 HISTORY: Patient is a 60-year-old Single, Disabled, Undomiciled, male with prior psychiatric history who was admitted after he was brought by his child caregiver private home to the hospital. He was hearing voices. Apparently, he reported that he is homeless, but he is not. The patient was also voicing that he was hearing God's voice and he was very religiously preoccupied and his thinking is very disorganized, so obviously, patient is not able to care for himself at this point and was admitted. VITAL SIGNS: See below. NEW TEST RESULTS: . CURRENT MEDICATIONS: See below. MENTAL STATUS EXAMINATION: Patient is a 60-year-old Single, Disabled, Undomiciled, male with prior psychiatric history who was admitted after he was brought by his child caregiver private home to the hospital. He was hearing voices. Appearance: Fairly Kempt, Hygiene and Grooming is good, recently showered, shaved his head Behavior: Cooperative Eye Contact: good Speech: normal rate, tone and loud volume Language skills are intact Thought processes including: linear Thought content: denies depression and anxiety. Denies suicidal/homicidal ideation, planning or intent. Abstract reasoning, and computation: fair Description of associations: less religiously preoccupied today Description of abnormal or psychotic thoughts:none observed Judgment: improving Insight: improving Orientation: alert and oriented to person, place, time and situation Recent and remote memory: intact Attention span and concentration: improving Language: average Fund of knowledge: average Mood:euthymic Affect: reactive DIAGNOSES: Schizophrenia, Paranoid Type Cannabis Use Disorder ASSESSMENT: Patient reports that he wants to leave. When we review why he has been admitted to the hospital longer, he states, "yeah I am sick of being here, but I know that I have to go back to [employer] . I will be depressed and come back so maybe its okay that I stay until I get a room at the hotel. " Reviewed with the patient that he should have received to track and that his senior case manager will find a place for him. He accepts this and states, "I should look at the good things about this but I keep feeling like I am trapped I do not want to stay in this hospital any longer but I have to stay until I have my money and I have a place to stay." Patient has less gnosticism preoccupation in this interview. Probable discharge on Friday PLAN: Continue all medications probable discharge on Friday TIME SPENT: 15 minutes. Vital Signs Vital Signs Date Time Temp Pulse Resp B/P (MAP) Pulse Ox O2 Delivery O2 Flow Rate FiO2 03/20/21 07:38 98.5 89 20 127/73 97 Room Air Laboratory Data 24H Labs Laboratory Tests 2 03/19/21 20:09: Bedside Glucose (Misc Panel) 256H Current Medications Current Medications Medications (Trade) Dose Ordered Sig/Dar Route PRN Reason Start Time Stop Time Status Last Admin Dose Admin Acetaminophen (Tylenol Tab) 650 mg Q6HP PRN PO HEADACHE or DISCOMFORT 03/02/21 14:20 03/06/21 18:20 Al Hydrox/Mg Hydrox/Simethicone (Mylanta) 30 ml Q4HP PRN PO HEARTBURN/INDIGESTION 03/02/21 14:20 03/03/21 17:34 Aripiprazole (AbiLIFY) 5 mg DAILY PO 03/03/21 09:00 03/06/21 08:15 DC 03/05/21 08:49 Aspirin (Aspirin Chewable) 81 mg DAILY PO 03/03/21 09:00 03/20/21 09:04 Atorvastatin Calcium (Lipitor) 40 mg DAILY PO 03/03/21 09:00 03/20/21 09:04 Cefdinir (Omnicef) 300 mg BID PO 03/02/21 21:00 03/12/21 23:55 DC 03/12/21 21:05 Diphenhydramine HCl (Benadryl) 25 mg Q8HP PRN PO ITCHING 03/04/21 17:00 03/07/21 00:36 Docusate Sodium (Colace) 100 mg BID PRN PO CONSTIPATION 03/02/21 16:40 03/09/21 21:21 Doxycycline Hyclate (Vibramycin) 100 mg BID PO 03/02/21 21:00 03/05/21 14:39 DC 03/05/21 08:50 Fluconazole (Diflucan Tablet) 200 mg Mo@0900 PO 03/26/21 09:00 04/16/21 09:01 Fluconazole (Diflucan Tablet) 200 mg Q4D PO 03/07/21 09:00 03/21/21 08:59 03/19/21 09:18 Gabapentin (Neurontin) 100 mg TID PO 03/14/21 21:00 03/20/21 09:04 Haloperidol (Haldol) 5 mg Q6HP PRN PO ANXIETY/AGITATION 03/02/21 14:20 03/05/21 03:16 Home Med (Med Rec Complete!) ASDIRECTED XX 03/02/21 15:05 03/02/21 15:05 DC Ibuprofen (Advil) 800 mg Q8HP PRN PO MODERATE PAIN (PS 5-7) 03/04/21 14:15 03/18/21 21:39 Insulin Detemir (Levemir Insulin) 50 units QHS SC 03/02/21 21:00 03/19/21 20:11 Lisinopril (Prinivil) 10 mg DAILY PO 03/03/21 09:00 03/20/21 09:04 Lorazepam (Ativan) 1 mg Q6HP PRN PO ANXIETY/AGITATION 03/02/21 14:20 03/18/21 12:21 DC 03/12/21 03:33 Magnesium Hydroxide (Milk Of Magnesia) 30 ml DAILYPRN PRN PO CONSTIPATION 03/02/21 14:20 03/09/21 21:21 Metformin HCl (Glucophage Xr) 500 mg BIDWM PO 03/02/21 18:00 03/20/21 09:04 Miscellaneous (Unresolved Clarification Entry) SEE LABEL COMMENTS DAILY XX 03/07/21 09:00 03/07/21 16:05 DC Miscellaneous (Unresolved Clarification Entry) SEE LABEL COMMENTS DAILY XX 03/11/21 09:00 03/11/21 09:08 DC Miscellaneous (Unresolved Clarification Entry) SEE LABEL COMMENTS DAILY XX 03/13/21 09:00 03/13/21 16:16 DC Nicotine (Nicoderm Cq 14mg) 1 patch DAILY TD 03/04/21 09:00 03/20/21 09:05 Risperidone (RisperDAL) 2 mg BID PO 03/06/21 09:00 03/20/21 09:04 Trazodone HCl (Desyrel) 50 mg QHSP PRN PO INSOMNIA 03/02/21 14:20 03/16/21 20:59 Allergies Coded Allergies: No Known Allergies (Unverified , 06/06/20) LISA FIELDS PRINTER SLOTTER OPERATOR Mar 20, 2021 13:33
[2021-03-20 18:43] VITALS: BP 122/74
[2021-03-20] MEDS: LEVEMIR (INSULIN DETEMIR) 1 UNITS/0.01ML SC SCH (20:26)
[2021-03-21 06:42] VITALS: BP 123/69
[2021-03-21 08:44] VITALS: BP 132/90
[2021-03-21] MEDS: ASPIRIN 81 MG CHEW TABLET PO SCH (08:44)
[2021-03-21] MEDS: ATORVASTATIN 20 MG TAB PO SCH (08:44)
[2021-03-21] MEDS: risperiDONE 2 MG TAB PO SCH (08:44)
[2021-03-21] MEDS: GABAPENTIN 100 MG CAP PO SCH (08:44)
[2021-03-21] MEDS: metFORMIN XR 500MG TAB *GLUCOPHAGE XR PO SCH (08:44)
[2021-03-21] MEDS: NICOTINE 14 MG/24 HR TRANSDERMAL TD SCH (08:45)
[2021-03-21] MEDS ORDERED: GLUCTAB PO (10:16)
[2021-03-21] MEDS ORDERED: INSUDET SC (10:16)
[2021-03-21] MEDS ORDERED: GABA-1171 PO (10:16)
[2021-03-21] MEDS ORDERED: ATOR1TAB21 PO (10:16)
[2021-03-21] MEDS ORDERED: LISI10TA22 PO (10:16)
[2021-03-21] MEDS ORDERED: INVE234I IM (10:16)
[2021-03-21] MEDS ORDERED: FLUC100T PO (10:16)
[2021-03-21] MEDS ORDERED: ASPI81CH8 PO (10:16)
[2021-03-21] MEDS ORDERED: DOK1CAP7 PO (10:16)
[2021-03-21] MEDS ORDERED: NICO14PA TD (10:16)
[2021-03-21 10:26] LABS: CHOLESTEROL RISK RATIO 2.357 (<5)
[2021-03-21] MEDS ORDERED: PALIPERIDONE PALMITATE 234MG/1.5ML INJ (INVEGA)(FREE PSY INPT ONLY) IM ONE (12:00)
--- NOTE | 2021-03-21 12:33 | MHDSPDOC ---
[facility] Discharge Summary Discharge Summary DATE OF ADMISSION: Mar 02, 2021 at 14:16 DATE OF DISCHARGE: March 21, 2021 at 1219 DISCHARGE DIAGNOSES: Schizophrenia, Paranoid Type Cannabis Use Disorder REASON FOR ADMISSION:Patient is a 60-year-old Single, Disabled, Undomiciled, male with prior psychiatric history who was admitted after he was brought by his managed care coordinator to the hospital. He was hearing voices. Apparently, he is homeless, but the patient was also voicing that he was hearing God's voice and he was very religiously preoccupied and his thinking is very disorganized, so obviously, patient is not able to care for himself at this point and was admitted. He continued to be very disorganized and he continues to have taoist-type delusions about God talking to him and basically, I am not really able to get much of a history from him. PER ED REPORT: Pt was brought in my clinical product manager Ludin Castanon. PSA met with pt at bedside. Pt is [place], when asked why he was here pt stated "because God told me to come here today, there is a reason for everything." Pt denies SI/HI stating "God put me here." When asked if he experiences AH/VH pt stated "I hear nothing I only hear what God wants me to hear and see, the devil is a liar to me here." When pt was asked who he lives with pt stated "I can't answer that, God tells me when to speak, when to move, etc." Pt was very religiously preoccupied, and unable to coherently answer any questions. Every question pt was asked pt responded with a taoist answer. PSA contacted Pt clinical product manager Ludin Castanon and left voicemail. Pt was discharged from a medical floor on 02/27/21 and reported to ED on 02/28/21 for being homeless. PATRICIO Mckee LCSW met with pt on this visit and pt did not seem to be religiously preoccupied, although did make a small taoist comment at end of interview. At this point in time pt is in no capacity to be safely discharged. CONSULTANTS INVOLVED: See Notes by Hospitalists and Podiatry. VITAL SIGNS: See below. TREATMENT AND PROGRESS ON THE UNIT: Patient was admitted to the [facility] on a 9.39 legal status he was afforded the following treatment modalities: 1) Individual Therapy 2) Group Therapy 3) Medication Management 4) Milieu Therapy 5) Safe Environment HOSPITAL COURSE: Patient was admitted to psychiatry on a 9.39 and subsequently on a 2 physician's consent. He was admitted to his increased auditory hallucinations, paranoia and increased psychotic symptoms of taoist preoccupations. He was started on his home medications and started on Risperdal while on the unit with the hopes of getting hime started on a long acting injectable. Through most of the admission, patient had refused to take the injection until today. He was however compliant with medications. Throughout his hospitalization he was religiously preoccupied and this appeared to lessen. Initially, many of his statements were filled with taoist statements or he would answer as if to point out that God was the answer to everything. While th is didn't make him a dangerous person, many of his thought processes were loose until last week. At this time he is stable and has improved insight and judgment/ He meets criteria for discharge. DISCHARGE ASSESSMENT: In today's interview, patient is alert and oriented, pts dress is appropriate. Hygiene and grooming is well-kempt. Smiles on approach and is pleasant and engaged in the interview. Denies depression and anxiety. Denies suicidal and homicidal ideation, planning or intent. Denies and is not observed with issa,debilitating psychotic symptoms of delusions, bizarre thinking, obsessions, paranoia, ruminations illogical thoughts, flight of ideas or having poor insight and judgement. His frequency of taoist ideations appears to be lessened. Patient has normal mentation for this particular patient, declines further hospitalization on a voluntary status and meets criteria for discharge today. Patient encouraged to return to hospital if symptoms worsen or change and encouraged to call unit if he/she/they needs to speak to provider for questions regarding medications or care. MENTAL STATUS EXAMINATION ON DISCHARGE: Patient is a 60-year-old Single, Disabled, Undomiciled, male with prior psychiatric history who was admitted after he was brought by his managed care coordinator to the hospital. He was complaining of increased auditory hallucinations and he had increased taoist preoccupations. Speech: Is fluid, conversant, normal rate, tone and volume Language skills are intact Thought processes including: linear and goal oriented Thought content: denies depression and anxiety. Denies suicidal/homicidal ideation, planning or intent. Abstract reasoning, and computation: fair Description of associations: denies, none observed Description of abnormal or psychotic thoughts: denies, none observed. Judgment: fair Insight: fair Orientation: alert and oriented to person, place, time and situation Recent and remote memory: intact Attention span and concentration: good Language: expansive Fund of knowledge: average Mood: Euthymic Mood Affect: reactive MEDICATIONS ON DISCHARGE: See Medication Reconciliation PLAN/FOLLOWUP ARRANGEMENTS: [facility] The amount of time spent in the coordination of care for this patient was approximately 25 minutes. ETOH/Disorder Med Rx ETOH/DRUG DISORDER RX: N/A Vital Signs/I&Os Vital Signs Date Time Temp Pulse Resp B/P (MAP) Pulse Ox O2 Delivery O2 Flow Rate FiO2 03/21/21 08:44 132/90 03/21/21 06:42 97.9 87 18 96 Room Air Laboratory Data Labs 24H Laboratory Tests 2 03/20/21 20:22: Bedside Glucose (Misc Panel) 286H 03/21/21 09:33: Triglycerides Level 150, Total Cholesterol 99, LDL Cholesterol 27, Non-HDL Cholesterol (LDL + VLDL) 57, Total HDL Cholesterol 42, Cholesterol/HDL Ratio 2.357 Medications Scheduled Aspirin (Children's Aspirin) 81 Mg Tab.chew, 81 MG PO DAILY for anti-platelet, #7 Atorvastatin Calcium (Atorvastatin Calcium) 20 Mg Tablet, 40 MG PO DAILY for cholesterol, #7 Fluconazole (Fluconazole) 100 Mg Tablet, 200 MG PO Mo@0900 for rash, #4 Gabapentin (Gabapentin) 100 Mg Capsule, 100 MG PO TID for nerve pain, #21 Insulin Detemir (Levemir) 100 Unit/1 Ml Vial, 50 UNITS SC QHS for Diabetes, #1 Lisinopril (Lisinopril) 10 Mg Tablet, 10 MG PO DAILY for Blood Pressure, #7 Metformin HCl (Glucophage Xr) 500 Mg Tab.er.24h, 500 MG PO BIDWM for Diabetes, #14 Nicotine (Nicotine Patch) 14 Mg Patch.td24, 1 PATCH TD DAILY for Nicotine withdrawal, #7 Paliperidone Palmitate (Invega Sustenna) 234 Mg/1.5 Ml Syringe, 234 MG IM ONCE for Hallucinations, #1 Next dose due 04/18/21 Scheduled PRN Docusate Sodium (Dok) 100 Mg Capsule, 100 MG PO BID PRN for CONSTIPATION, #14 Allergies Coded Allergies: No Known Allergies (Unverified , 06/06/20) LISA FIELDS NP Mar 21, 2021 12:20
[2021-03-26] MEDS ORDERED: FLUCONAZOLE 100 MG TAB PO SCH (09:00)
== END 2021-03-21 12:53 | disposition home or self-care (01) | DRG 885 ==
LOC: M ED 09:43 → M ED INP 14:16 → M PSY 16:50
PROVIDERS: ADMIT Psychiatry & Neurology Psychiatry; ATTEND Psychiatry & Neurology Psychiatry
DX: F20.0 Paranoid schizophrenia (principal); F12.90 Cannabis use, unspecified, uncomplicated; Z79.899 Other long term (current) drug therapy; Z79.82 Long term (current) use of aspirin; Z91.19 Patient's noncompliance with other medical treatment and regimen; E11.40 Type 2 diabetes mellitus with diabetic neuropathy, unspecified; I10 Essential (primary) hypertension; F41.9 Anxiety disorder, unspecified; R21 Rash and other nonspecific skin eruption

== ENCOUNTER → 2021-03-22 | Outpatient (REF) | payer MEDICARE, MEDICAID ==
[~2021-03-22] MED LIST changes: +ARIP10TA32 PO; +ASPI81CH8 PO; +ATOR1TAB21 PO; +CEFD300C41 PO; +CEPH500C PO; +COMMENTS; +DOK1CAP4 PO; -DOK1CAP7 PO; +DOXY-443 PO; +DOXY100T PO; -DOXY1CAP62 PO; +FLUC100T3 PO; +GABA-1171 PO; +GLUCTAB PO; +INVE234I IM; +LEVE1INJ5; +NICO14PA TD; +NICO21PAT TD; +RISP-9; +RISP-9 PO
== END ==
LOC: M LAB REF 16:28
PROVIDERS: ATTEND Dermatology
DX: L30.8 Other specified dermatitis (principal)
CPT/HCPCS: 11103; 11104; 88305; G0463

== ENCOUNTER 2021-04-17 17:42 | Inpatient (IN) | payer MEDICARE, MEDICAID ==
[~2021-04-17] VITALS: Ht 182.9 cm; Wt 100.0 kg
[~2021-04-17 17:42] MED LIST changes: +CEFD1CAP8 PO; -CEFD300C41 PO; -CEPH500C PO; -DOK1CAP4 PO; +DOK1CAP7 PO; -DOXY-443 PO; -DOXY100T PO; +DOXY1CAP62 PO; +FLUC100T PO; -FLUC100T3 PO; -LEVE1INJ5; -NICO21PAT TD; -RISP-9; -RISP-9 PO
[2021-04-17 18:54] LABS: HEMATOCRIT 35.9 % (42.0-52.0); MEAN CORPUSCULAR HEMOGLOBIN 28.6 pg (27.0-33.0); MEAN CORPUSCULAR HGB CONC 33.4 g/dl (32.0-36.5); MEAN CORPUSCULAR VOLUME 85.7 fl (80.0-96.0); PLATELET COUNT, AUTOMATED 204 10^3/uL (150-450); RED BLOOD COUNT 4.19 10^6/uL (4.30-6.10); WHITE BLOOD COUNT 11.6 10^3/uL (4.0-10.0)
[2021-04-17 19:09] LABS: ACETAMINOPHEN LEVEL < 2.0 UG/ML (10.0-30.0); ALBUMIN 3.6 GM/DL (3.2-5.2); ALT/SGPT 20 U/L (12-78); BILIRUBIN,DIRECT 0.1 MG/DL (0.0-0.2); BILIRUBIN,TOTAL 0.3 MG/DL (0.2-1.0); BLOOD UREA NITROGEN 16 MG/DL (7-18); CALCIUM LEVEL 8.4 MG/DL (8.8-10.2); CARBON DIOXIDE LEVEL 27 MEQ/L (21-32); CHLORIDE LEVEL 107 MEQ/L (98-107); CREATININE FOR GFR 0.79 MG/DL (0.70-1.30); ETHYL ALCOHOL (ETHANOL) < 0.003 % (0.000-0.010); GLOMERULAR FILTRATION RATE > 60.0 (>49); GLUCOSE, FASTING 81 MG/DL (70-100); POTASSIUM SERUM 3.6 MEQ/L (3.5-5.1); SALICYLATE LEVEL < 1.7 MG/DL (5.0-30.0); SODIUM LEVEL 142 MEQ/L (136-145); THYROID STIMULATING HORMONE 0.229 uIU/ML (0.358-3.740); TOTAL PROTEIN 6.8 GM/DL (6.4-8.2)
[2021-04-17 20:29] LABS: AMPHETAMINES LEVEL URINE NEGATIVE (NEGATIVE); BARBITURATES URINE NEGATIVE (NEGATIVE); BENZODIAZEPINES URINE NEGATIVE (NEGATIVE); CANNABINOIDS URINE POSITIVE (NEGATIVE); COCAINE METABOLITE URINE NEGATIVE (NEGATIVE); METHADONE URINE NEGATIVE (NEGATIVE); OPIATES URINE NEGATIVE (NEGATIVE); PHENCYCLIDINE URINE NEGATIVE (NEGATIVE)
[2021-04-17] MEDS ORDERED: RISP-9 PO (20:31)
[2021-04-17] MEDS ORDERED: CEFD1CAP8 PO (20:31)
[2021-04-17] MEDS ORDERED: CEPH500C PO (20:31)
[2021-04-17 22:03] LABS: RSV AMPLIFICATION NEGATIVE (NEGATIVE)
[2021-04-17] MEDS ORDERED: OLANZapine ORAL DISINTEGRATING TAB 5MG PO PRN (23:30)
[2021-04-18] MEDS ORDERED: DEXTROSE 50% 50 ML SYRINGE IV PRN
[2021-04-18] MEDS ORDERED: GLUCOSE 4GM CHEW TABLET PO PRN
[2021-04-18] MEDS ORDERED: GLUCAGON INJ 1MG VIAL SC PRN
[2021-04-18 06:57] VITALS: BP 126/68
[2021-04-18] MEDS: HumaLOG INSULIN (NovoLOG) PER UNIT SC SCH ×4 (08:56→20:23)
[2021-04-18] MEDS: risperiDONE 2 MG TAB PO SCH (08:56)
--- NOTE | 2021-04-18 11:27 | MHHPEPDOC ---
General Date Of Admission: Apr 17, 2021 Legal Status: 9.39 Chief Complaint I am just tired of living I was going to cut myself ". History of Present Illness HISTORY OF THE PRESENT ILLNESS: Patient is a 60 -year-old , male, who [has a long history of schizophrenia with many previous inpatient treatment including recent discharge from inpatient unit in February of this year. Patient apparently was homeless and has been sleeping on the street and then he called the police and reported that he was feeling suicidal and was brought to emergency room. Patient apparently has not been fully compliant with his outpatient treatment and left the apartment arranged for him by [facility] and has been sleeping on the street. At the emergency room patient reported that he was having suicidal thoughts and was going to cut himself with a knife but changed his mind and called the police. On the unit patient is in bed appears quite disheveled preoccupied and when approached by the MD patient stated that he is feeling too tired to talk and turned away and will not cooperate with full interview. This is a incomplete evaluation due to his failure to cooperate and most of the information was obtained from his old record.]. Psychiatric Review of Systems Depression (2 or more weeks): depressed mood, feelings of worthlesness, suicidal thoughts, other (Had thoughts of cutting himself with a knife) Nemo (4 or more days of): denies Psychosis: other (Patient will not cooperate with interview) PTSD: denies Anxiety: denies Past Psychiatric History Previous Psychiatric Diagnosis: . Chronic schizophrenia Previous Psychiatric Admissions: . Multiple admissions in [facility] in the state of [place]. He has 2 previous admissions at [facility] last discharge in February of this year Suicide Attempts: . Moll reported history of suicidal attempt Psychiatric Follow-up: Patient has case management. Psychiatric medications: . He was discharged to the paliperidone injection in February Past Medical History Medical Problems History of hypertension diabetes and hyperlipidemia Head Injury: No Seizures: No Hospitalizations: No Surgeries: No Family Medical/Psychiatric HX Medical Problems Patient is not aware of any family history Psychiatric Disorders: No (Patient denies any known family psychiatric history) Addiction: No Suicide Attemps/Completions: No Addiction History other (Drinks beer sometimes) Social History Childhood: Patient is not providing any information. Abuse/Trauma:. Current Living Situation: . Education: . Employment: . Social Support: . Legal: . Marital: . Mental Status Examination General Appearance: disheveled, appears stated age Build: average Demeanor: withdrawn, preoccupied Eye Contact: avoidant Activity: slowed Behavior: uncooperative Speech: low in volume Mood: depressed, anxious Mood Patient reported depression with a suicidal thoughts Affect: constricted, anxious Thought Process: other (Not cooperating with interview) Thought Content (Delusions): other (Reported to suicidal thoughts) Thought Content (Other): other Thought Content (Aggressive): other (Unable to evaluate unable to evaluate) Perception (Hallucinations): other (Unable to evaluate) Perception (Other): other Cognition (Impairment of): other (Unable to evaluate) Cognition(Intelligence Est.): average (Poor history) Oriented: Awake, Alert, Oriented times three (Appears oriented) Insight: other (Patient was seeking help) Judgment: Poor, Other Diagnoses Chronic schizophrenia undifferentiated per history and adjustment disorder with depression A-FIB/CHADSVASC A-FIB History Current/History of A-Fib/PAF?: No Current PO Anticoag Therapy: No Age/Risk Factor Scoring CHADSVASC: CHADSVASC Response (Comments) Value Age Risk Factor Age < 65 years old 0 Gender Risk Factor Male 0 Total 0 Assessment Patient is not fully cooperating with the interview but is maintaining good control. We will continue with the supportive therapy and try to stabilize him with the medications. Clarify his current living situation with his casework manager. Initial Treatment Plan 1. Patient was admitted on a status. 2. Complete history was obtained. 3. With patients permission, family will be contacted and database will be expanded. 4. Patients medication regimen will be reviewed and changed accordingly. 5. Patient will be provided with protected environment. 6. Patient will be treated with individual, group, and milieu therapies. 7. Patient will receive supportive psych-education. 8. Discharge planning will commence immediately. 9. Outpatient follow-up treatment will be strongly recommended. 10. The initial treatment plan will focus initially on: * Depression. * Risk for suicide. ESTIMATED LENGTH OF STAY: 5-7 DAYS. TIME SPENT COUNSELING AND COORDINATING INITIAL CARE: 40 minutes. Tobacco Cessation Screen If Patient is a Smoker He is a smoker Tobacco Cessation Tx Ordered?: Yes Complete/Results docum. Vital Signs Vital Signs Date Time Temp Pulse Resp B/P (MAP) Pulse Ox O2 Delivery O2 Flow Rate FiO2 04/18/21 09:34 Room Air 04/18/21 06:57 98.3 80 20 126/68 (87) 97 Laboratory Data 24H Labs Laboratory Tests 2 04/17/21 18:19: Nucleated Red Blood Cells % (auto) 0.0, Anion Gap 8, Glomerular Filtration Rate > 60.0, Calcium Level 8.4L, Total Bilirubin 0.3, Direct Bilirubin 0.1, Aspartate Amino Transf (AST/SGOT) 9, Alanine Aminotransferase (ALT/SGPT) 20, Alkaline Phosphatase 95, Total Protein 6.8, Albumin 3.6, Albumin/Globulin Ratio 1.1, Thyroid Stimulating Hormone (TSH) 0.229L, Salicylates Level < 1.7L, Acetami nophen Level < 2.0L, Ethyl Alcohol Level < 0.003 04/17/21 19:36: Urine Opiates Screen NEGATIVE, Urine Methadone Screen NEGATIVE, Urine Barbiturates Screen NEGATIVE, Urine Phencyclidine Screen NEGATIVE, Urine Amphetamines Screen NEGATIVE, Urine Benzodiazepines Screen NEGATIVE, Urine Cocaine Metabolite Screen NEGATIVE, Urine Cannabinoids Screen POSITIVEH 04/17/21 21:01: Coronavirus (COVID-19)(PCR) NEGATIVE, Influenza Type A (RT-PCR) NEGATIVE, Influenza Type B (RT-PCR) NEGATIVE, Respiratory Syncytial Virus (PCR) NEGATIVE 04/18/21 06:04: Bedside Glucose (Misc Panel) 139H CBC/BMP Laboratory Tests 04/17/21 18:19 Medications Scheduled Aspirin (Aspirin) 81 Mg Tab.chew, 81 MG PO DAILY for ANTI-PLATELET, (Reported) Atorvastatin Calcium (Atorvastatin Calcium) 20 Mg Tablet, 40 MG PO DAILY for CHOLESTEROL, (Reported) Gabapentin (Gabapentin) 100 Mg Capsule, 100 MG PO TID for ., (Reported) Insulin Detemir (Levemir Flextouch) 100 Unit/1 Ml Insuln.pen, 50 UNIT SC QHS for DIABETES, (Reported) Lisinopril (Lisinopril) 10 Mg Tablet, 10 MG PO DAILY for HBP, (Reported) Metformin HCl (Metformin HCl ER) 500 Mg Tab.er.24h, 500 MG PO BID for DIABETES, (Reported) Paliperidone Palmitate (Invega Sustenna) 234 Mg/1.5 Ml Syringe, 234 MG IM QMONTH for PSYCHOSIS, (Reported) scheduled to come in 04/13/21 but was cancelled. Risperidone (Risperidone) 2 Mg Tablet, 2 MG PO BID for PSYCHOSIS, (Reported) Scheduled PRN Docusate Sodium (Docusate Sodium) 100 Mg Capsule, 100 MG PO BID PRN for CONSTIPATION, (Reported) Allergies Coded Allergies: No Known Allergies (Unverified , 06/06/20) TOD ESPAÑA M.D. Apr 18, 2021 11:27
[2021-04-18] MEDS ORDERED: DOCUSATE SODIUM 100MG CAPSULE PO PRN (16:40)
--- NOTE | 2021-04-18 16:44 | HPEPDOC ---
General Date of Admission Apr 18, 2021 at 01:09 Date of Service: Apr 18, 2021 Chief Complaint The patient is a 60-year-old male admitted with a reason for visit of Bree[place]. Source: Patient Exam Limitations: Clinical conditions, Hard of hearing History of Present Illness Patient is 60 years old male with past history of hypertension, bipolar disord er, depression, anxiety, type 2 diabetes, osteomyelitis of the right foot with s/p I &D, [place] bilateral with right hearing aid presented to the hospital with acute psychosis. At the emergency room patient reported that he was having suicidal thoughts and was going to cut himself with a knife but changed his mind and called the police. During my interview patient was uncooperative. Home Medications Scheduled Aspirin (Aspirin) 81 Mg Tab.chew, 81 MG PO DAILY for ANTI-PLATELET, (Reported) Atorvastatin Calcium (Atorvastatin Calcium) 20 Mg Tablet, 40 MG PO DAILY for CHOLESTEROL, (Reported) Gabapentin (Gabapentin) 100 Mg Capsule, 100 MG PO TID for ., (Reported) Insulin Detemir (Levemir Flextouch) 100 Unit/1 Ml Insuln.pen, 50 UNIT SC QHS for DIABETES, (Reported) Lisinopril (Lisinopril) 10 Mg Tablet, 10 MG PO DAILY for HBP, (Reported) Metformin HCl (Metformin HCl ER) 500 Mg Tab.er.24h, 500 MG PO BID for DIABETES, (Reported) Paliperidone Palmitate (Invega Sustenna) 234 Mg/1.5 Ml Syringe, 234 MG IM QMONTH for PSYCHOSIS, (Reported) scheduled to come in 04/13/21 but was cancelled. Risperidone (Risperidone) 2 Mg Tablet, 2 MG PO BID for PSYCHOSIS, (Reported) Scheduled PRN Docusate Sodium (Docusate Sodium) 100 Mg Capsule, 100 MG PO BID PRN for CONSTIPATION, (Reported) Allergies Coded Allergies: No Known Allergies (Unverified , 06/06/20) Past Medical History Medical History Chronic schizophrenia osteomyelitis and joint septic arthritis s/p right foot incision and drainage with first metatarsal bone biopsy being done 02/20/2021 Type 2 diabetes Electrolyte imbalance Hypertension Insomnia Bipolar disorder/depression/anxiety Surgical History Right foot I &D (02/20/21); left ear surgery Family History Unable to obtain Social History * Smoker: Denies Alcohol: Denies Drugs: denies A-FIB/CHADSVASC A-FIB History Current/History of A-Fib/PAF?: No Current PO Anticoag Therapy: No Age/Risk Factor Scoring CHADSVASC: CHADSVASC Response (Comments) Value Age Risk Factor Age < 65 years old 0 Gender Risk Factor Male 0 Total 0 Review of Systems Constitutional: Reports: Other (Unable to obtain patient uncooperative) Physical Examination General Exam: Positive: Alert, Moderate Distress; Negative: Cooperative Eye Exam: Positive: PERRLA ENT Exam: Positive: Atraumatic Neck Exam: Negative: JVD Chest Exam: Positive: Clear to auscultation Heart Exam: Positive: Rate Normal Telemetry: Positive: No significant arrhythmia Abdomen Exam: Positive: Normal bowel sounds Extremity Exam: Negative: Clubbing Skin Exam: Positive: Nl turgor and temperature Neuro Exam: Positive: Strength at 5/5 X4 ext Psych Exam: Negative: Mental status NL, Oriented x 3 Vital Signs Vital Signs Date Time Temp Pulse Resp B/P (MAP) Pulse Ox O2 Delivery O2 Flow Rate FiO2 04/18/21 09:34 Room Air 04/18/21 06:57 98.3 80 20 126/68 (87) 97 Laboratory Data Labs 24H Laboratory Tests 2 04/17/21 18:19: Nucleated Red Blood Cells % (auto) 0.0, Anion Gap 8, Glomerular Filtration Rate > 60.0, Calcium Level 8.4L, Total Bilirubin 0.3, Direct Bilirubin 0.1, Aspartate Amino Transf (AST/SGOT) 9, Alanine Aminotransferase (ALT/SGPT) 20, Alkaline Phosphatase 95, Total Protein 6.8, Albumin 3.6, Albumin/Globulin Ratio 1.1, Thyroid Stimulating Hormone (TSH) 0.229L, Salicylates Level < 1.7L, Acetaminophen Level < 2.0L, Ethyl Alcohol Level < 0.003 04/17/21 19:36: Urine Opiates Screen NEGATIVE, Urine Methadone Screen NEGATIVE, Urine Silva iturates Screen NEGATIVE, Urine Phencyclidine Screen NEGATIVE, Urine Amphetamines Screen NEGATIVE, Urine Benzodiazepines Screen NEGATIVE, Urine Cocaine Metabolite Screen NEGATIVE, Urine Cannabinoids Screen POSITIVEH 04/17/21 21:01: Coronavirus (COVID-19)(PCR) NEGATIVE, Influenza Type A (RT-PCR) NEGATIVE, Influenza Type B (RT-PCR) NEGATIVE, Respiratory Syncytial Virus (PCR) NEGATIVE 04/18/21 06:04: Bedside Glucose (Misc Panel) 139H 04/18/21 11:53: Bedside Glucose (Misc Panel) 172H CBC/BMP Laboratory Tests 04/17/21 18:19 Assessment/Plan Patient is 60 years old male with past history of hypertension, bipolar disorder, depression, anxiety, type 2 diabetes, osteomyelitis of the right foot with s/p I &D, [place] bilateral with right hearing aid presented to the hospital with acute psychosis. At the emergency room patient reported that he was having suicidal thoughts and was going to cut himself with a knife but changed his mind and called the police. During my interview patient was uncooperative. Problems (1) Hypertension Status: Chronic Problem Text: Continue home meds (2) Wound of foot Problem Text: Foot wound does not look infected Consider studio designer consult Follow-up with studio designer in the outpatient settings (3) Uncontrolled type 2 diabetes mellitus with hyperglycemia, with long-term current use of insulin Status: Chronic Problem Text: Insulin sliding scale Diabetes diet Detemir (4) Suicidal ideation Status: Acute Problem Text: Defer treatment to psych team (5) Hyperlipidemia Status: Chronic Problem Text: Continue statin Plan / VTE VTE Prophylaxis Ordered?: No VTE Exclusion Mechanical Proph: Low Risk for VTE ASAD BRITO DO Apr 18, 2021 16:44
[2021-04-18] MEDS ORDERED: LEVE1INJ5 SC (17:06)
[2021-04-18] MEDS ORDERED: ASPI81CH33 PO (17:06)
[2021-04-18] MEDS ORDERED: ATOR1TAB21 PO (17:06)
[2021-04-18] MEDS ORDERED: INVE234I IM (17:06)
[2021-04-18] MEDS ORDERED: GABA-1171 PO (17:06)
[2021-04-18] MEDS ORDERED: DOCU100C16 PO (17:06)
[2021-04-18] MEDS ORDERED: METF-838 PO (17:06)
[2021-04-18] MEDS ORDERED: LISI10TA22 PO (17:06)
[2021-04-18] MEDS ORDERED: HOME MED LIST COMPLETE! XX SCH (17:10)
[2021-04-18 18:40] VITALS: BP 169/85
[2021-04-18] MEDS: ASPIRIN 81 MG CHEW TABLET PO SCH (20:13)
[2021-04-18] MEDS: ATORVASTATIN 20 MG TAB PO SCH (20:13)
[2021-04-18] MEDS: LEVEMIR (INSULIN DETEMIR) 1 UNITS/0.01ML SC SCH (20:23)
[2021-04-19 06:32] VITALS: BP 127/79
[2021-04-19] MEDS: HumaLOG INSULIN (NovoLOG) PER UNIT SC SCH ×4 (06:47→20:53)
[2021-04-19] MEDS: ATORVASTATIN 20 MG TAB PO SCH (09:09)
[2021-04-19] MEDS: ASPIRIN 81 MG CHEW TABLET PO SCH (09:09)
[2021-04-19] MEDS: LEVEMIR (INSULIN DETEMIR) 1 UNITS/0.01ML SC SCH ×2 (09:09→20:54)
[2021-04-19] MEDS: risperiDONE 2 MG TAB PO SCH (09:09)
--- NOTE | 2021-04-19 10:11 | MHIPNPDOC ---
[facility] Progress Note Progress Note DATE OF SERVICE: 04/19/21 Patient is cooperating with the medicine but showing very little change in his mental status and behavior. He is spending all his time in bed extremely withdr awn preoccupied and not answering most of the questions. He claims he is feeling tired and does not feel good and not responding much and appears very withdrawn and regressed. He has no physical complaints he is eating okay and does not appear to be in any acute distress physically. HISTORY:. VITAL SIGNS: See below. NEW TEST RESULTS:. CURRENT MEDICATIONS: See below. MENTAL STATUS EXAMINATION: Patient is a 60-year old male, who is extremely withdrawn. Speech: Is not productive. Language skills are poor. Thought processes including: Not verbally responsive and very preoccupied. Thought content: Difficult to evaluate but very preoccupied. Abstract reasoning, and computation: Poor. Description of associations: Not productive. Description of abnormal or psychotic thoughts: Difficult to evaluate. Judgment: Poor. Insight: poor]. Orientation: Appears oriented to the. Recent and remote memory: Unable to evaluate]. Attention span and concentration: Poor. Language:. Fund of knowledge:. Mood: Somewhat irritable and depressed. Affect: Extremely blunted. DIAGNOSES: 1.. Chronic schizophrenia 2.. Rule out schizoaffective disorder 3.. ASSESSMENT: No improvement and not very cooperative MANAGEMENT PLAN: Continue with the current treatment for stabilization. TIME SPENT: 15 minutes. Vital Signs Vital Signs Date Time Temp Pulse Resp B/P (MAP) Pulse Ox O2 Delivery O2 Flow Rate FiO2 04/19/21 09:09 127/79 04/19/21 06:32 98.4 75 20 96 Room Air Laboratory Data 24H Labs Laboratory Tests 2 04/18/21 11:53: Bedside Glucose (Misc Panel) 172H 04/18/21 16:52: Bedside Glucose (Misc Panel) 147H 04/18/21 20:17: Bedside Glucose (Misc Panel) 191H 04/19/21 05:56: Bedside Glucose (Misc Panel) 122H Current Medications Current Medications Medications (Trade) Dose Ordered Sig/Dar Route PRN Reason Start Time Stop Time Status Last Admin Dose Admin Aspirin (Aspirin Chewable) 81 mg DAILY PO 04/18/21 09:00 04/19/21 09:09 Atorvastatin Calcium (Lipitor) 40 mg DAILY PO 04/18/21 09:00 04/19/21 09:09 Dextrose (Dextrose 50%) 25 ml ASDIRECTED PRN IV SEE LABEL COMMENTS 04/18/21 00:00 Docusate Sodium (Colace) 100 mg BID PRN PO CONSTIPATION 04/18/21 16:40 Glucagon (Glucagon) 1 mg ASDIRECTED PRN SC SEE LABEL COMMENTS 04/18/21 00:00 Glucose (Glucose) 16 GM ASDIRECTED PRN PO SEE LABEL COMMENTS 04/18/21 00:00 Home Med (Med Rec Complete!) ASDIRECTED XX 04/18/21 17:10 04/18/21 17:17 DC Insulin Detemir (Levemir Insulin) 25 units BID SC 04/18/21 21:00 04/19/21 09:09 Insulin Human Lispro (HumaLOG INSULIN) See Protocol Table AC SC 04/18/21 07:30 04/19/21 06:47 Insulin Human Lispro (HumaLOG INSULIN) See Protocol Table QHS SC 04/18/21 21:00 Lisinopril (Prinivil) 10 mg DAILY PO 04/19/21 09:00 04/19/21 09:09 Olanzapine (ZyPREXA ZYDIS) 5 mg Q4HP PRN PO AGITATION 04/17/21 23:30 Risperidone (RisperDAL) 2 mg BID PO 04/20/21 09:00 Risperidone (RisperDAL) 2 mg DAILY PO 04/18/21 09:00 04/19/21 09:00 DC 04/19/21 09:09 Risperidone (RisperDAL) 2 mg DAILY PO 04/20/21 12:00 04/18/21 00:06 DC Allergies Coded Allergies: No Known Allergies (Unverified , 06/06/20) TOD ESPAÑA M.D. Apr 19, 2021 10:11
[2021-04-19 17:58] VITALS: BP 158/79
[2021-04-19] MEDS: ACETAMINOPHEN TAB 650MG DOSE (2X325MG) PO PRN (18:04)
[2021-04-20 06:05] VITALS: BP 106/59
[2021-04-20] MEDS: HumaLOG INSULIN (NovoLOG) PER UNIT SC SCH ×4 (06:43→20:10)
[2021-04-20] MEDS: MOM 30ML SUSPENSION UDC PO SCH (07:22)
[2021-04-20] MEDS: ASPIRIN 81 MG CHEW TABLET PO SCH (08:27)
[2021-04-20] MEDS: ATORVASTATIN 20 MG TAB PO SCH (08:27)
[2021-04-20] MEDS: LEVEMIR (INSULIN DETEMIR) 1 UNITS/0.01ML SC SCH ×2 (08:27→20:09)
[2021-04-20] MEDS: risperiDONE 2 MG TAB PO SCH ×2 (08:28→20:09)
--- NOTE | 2021-04-20 10:04 | MHIPNPDOC ---
[facility] Progress Note Progress Note DATE OF SERVICE: 04/20/21 He appears a little less irritable anxious and slightly more responsive. He is however still complaining feeling tired and weak and not very productive. He is cooperating with his risperidone and denies any active hallucination but remains markedly withdrawn and regressed. HISTORY:. VITAL SIGNS: See below. NEW TEST RESULTS:. CURRENT MEDICATIONS: See below. MENTAL STATUS EXAMINATION: Patient is a 60-year old male, who is withdrawn but in no acute distress. Speech: Is still not very productive. Language skills are poor. Thought processes including: Gave relevant answers yes and no but not elaborating. Thought content: Reports feeling tired and weak. Abstract reasoning, and computation: Poor. Description of associations: Not productive. Description of abnormal or psychotic thoughts: Does not appear to be actively hallucinating. Judgment: Poor. Insight: poor]. Orientation: Appears oriented. Recent and remote memory: Difficult to evaluate. Attention span and concentration: Poor. Language:. Fund of knowledge:. Mood: Remains anxious and depressed and preoccupied. Affect: Very blunted. DIAGNOSES: 1.. Chronic schizophrenia 2.. 3.. ASSESSMENT: No significant improvement or oil changer PLAN: Continue with the current medicine and supportive therapy. TIME SPENT: 15 minutes. Vital Signs Vital Signs Date Time Temp Pulse Resp B/P (MAP) Pulse Ox O2 Delivery O2 Flow Rate FiO2 04/20/21 09:28 Room Air 04/20/21 08:45 133/69 04/20/21 06:05 97.9 70 20 96 Laboratory Data 24H Labs Laboratory Tests 2 04/19/21 11:24: Bedside Glucose (Misc Panel) 185H 04/19/21 17:18: Bedside Glucose (Misc Panel) 162H 04/19/21 20:52: Bedside Glucose (Misc Panel) 183H 04/20/21 06:34: Bedside Glucose (Misc Panel) 105 Current Medications Current Medications Medications (Trade) Dose Ordered Sig/Dar Route PRN Reason Start Time Stop Time Status Last Admin Dose Admin Acetaminophen (Tylenol Tab) 650 mg Q6HP PRN PO MILD PAIN or TEMP > 101 04/19/21 17:55 04/19/21 18:04 Al Hydrox/Mg Hydrox/Simethicone (Mylanta) 30 ml Q4HP PRN PO HEARTBURN 04/19/21 17:55 Aspirin (Aspirin Chewable) 81 mg DAILY PO 04/18/21 09:00 04/20/21 08:27 Atorvastatin Calcium (Lipitor) 40 mg DAILY PO 04/18/21 09:00 04/20/21 08:27 Dextrose (Dextrose 50%) 25 ml ASDIRECTED PRN IV SEE LABEL COMMENTS 04/18/21 00:00 Docusate Sodium (Colace) 100 mg BID PRN PO CONSTIPATION 04/18/21 16:40 Glucagon (Glucagon) 1 mg ASDIRECTED PRN SC SEE LABEL COMMENTS 04/18/21 00:00 Glucose (Glucose) 16 GM ASDIRECTED PRN PO SEE LABEL COMMENTS 04/18/21 00:00 Home Med (Med Rec Complete!) ASDIRECTED XX 04/18/21 17:10 04/18/21 17:17 DC Insulin Detemir (Levemir Insulin) 25 units BID SC 04/18/21 21:00 04/20/21 08:27 Insulin Human Lispro (HumaLOG INSULIN) See Protocol Table AC SC 04/18/21 07:30 04/20/21 06:43 Insulin Human Lispro (HumaLOG INSULIN) See Protocol Table QHS SC 04/18/21 21:00 Lisinopril (Prinivil) 10 mg DAILY PO 04/19/21 09:00 04/20/21 08:45 Magnesium Hydroxide (Milk Of Magnesia) 30 ml DAILY PO 04/20/21 09:00 Olanzapine (ZyPREXA ZYDIS) 5 mg Q4HP PRN PO AGITATION 04/17/21 23:30 Risperidone (RisperDAL) 2 mg BID PO 04/20/21 09:00 04/20/21 08:28 Risperidone (RisperDAL) 2 mg DAILY PO 04/18/21 09:00 04/19/21 09:00 DC 04/19/21 09:09 Risperidone (RisperDAL) 2 mg DAILY PO 04/20/21 12:00 04/18/21 00:06 DC Trazodone HCl (Desyrel) 50 mg QHSP PRN PO INSOMNIA 04/19/21 17:55 Allergies Coded Allergies: No Known Allergies (Unverified , 06/06/20) TOD ESPAÑA M.D. Apr 20, 2021 10:04
[2021-04-20] MEDS ORDERED: NICOTINE 14 MG/24 HR TRANSDERMAL TD PRN (10:35)
[2021-04-20] MEDS ORDERED: risperiDONE 3 MG TAB PO SCH (12:00)
--- NOTE | 2021-04-20 15:36 | CR ---
[facility] CONSULTATION DATE: 04/20/2021 CONSULT REQUESTED BY: Dr. Jose Boston REASON FOR CONSULTATION: Right diabetic foot wound. Wound Care Telemedicine provides a visual assessment of a wound without the benefit of physical examination. It can assist with establishing a diagnosis and etiology. This allows for an initial treatment plan. As wounds often change it may be necessary to modify the original care. Our recommendation is periodic wound reassessment to monitor treatment. Failure to comply may result in nonhealing of wound or wounds, possible complications and/or a poor outcome. The recommendations given will serve as treatment option. As I will not be following this patient this care plan will require the attending physician to give and sign the orders. Upon discharge outpatient follow up can be scheduled at our wound care center. This is a 60-year-old male diabetic admitted [facility] the [facility]. He was found to have a wound involving the right foot at the 1st metatarsal head medial aspect. This wound measures 4.0 cm x 1.0 cm with wound depth of 0.6 cm. The wound base cannot be visualized by Telemedicine. Wound edges show areas of ischemic necrosis. The patient indicates that he does have some sensation in the areas uncomfortable. It is difficult to get an appropriate history from the patient as he is unsure when asked specific questions. INITIAL TREATMENT PLAN: The wound should be cleansed with Vashe Wound Cleanser for 10 minutes and then covered with Hydrofera Blue Ready-Foam. This should be changed every other day. An arterial ultrasound should be obtained of the right lower extremity. Baseline hemoglobin A1C and fasting glucose should be ordered. Consult with podiatry or general surgery for local wound debridement would be beneficial. The patient indicated that he does have shoes provided by Dr. Skaggs in the past, These should be utilized at the time of discharge if appropriate.. The patient can be followed up at our clinic or with podiatry. Failure to do so could result in nonhealing of the wound further complications and could result in amputation of the digit. Any abnormality in his arterial ultrasound would require interventional radiology consult MTDD
[2021-04-20 18:00] VITALS: BP 157/80
[2021-04-21] MEDS: HumaLOG INSULIN (NovoLOG) PER UNIT SC SCH ×4 (06:26→21:00)
[2021-04-21 06:57] VITALS: BP 106/58
[2021-04-21] MEDS: ATORVASTATIN 20 MG TAB PO SCH (10:52)
[2021-04-21] MEDS: MOM 30ML SUSPENSION UDC PO SCH (10:52)
[2021-04-21] MEDS: ASPIRIN 81 MG CHEW TABLET PO SCH (10:52)
[2021-04-21] MEDS: LEVEMIR (INSULIN DETEMIR) 1 UNITS/0.01ML SC SCH ×2 (10:52→20:27)
[2021-04-21] MEDS: risperiDONE 2 MG TAB PO SCH ×2 (10:53→20:27)
--- NOTE | 2021-04-21 17:21 | MHIPNPDOC ---
[facility] Progress Note Progress Note DATE OF SERVICE: 04/21/21 HISTORY: the patient is a little irritable, asking about his Metformin, since he says he uses this medication at home. He says he feels depressed but not suic idal, he denies having SI/HI, denies thought delusions, says he has slept well, has a good appetite. VITAL SIGNS: See below. NEW TEST RESULTS:. CURRENT MEDICATIONS: See below. MENTAL STATUS EXAMINATION: Patient is a 60-year old male, who is wearing hospital scrubs, disheveled, edentulous, with fair eye contact Speech: Loud, with normal tone, redundant Language skills : poor. Thought processes including: Not circumstantial, not tangential, linear Thought content: Thinking about being discharged soon, denies SI/HI, denies thought delusions. Abstract reasoning, and computation: Poor. Description of associations: not loose Description of abnormal or psychotic thoughts: Denies TAV hallucinations, not responding to internal stimuli Judgment: Poor. Insight: poor Orientation: Appears oriented. Recent and remote memory: Difficult to evaluate. Attention span and concentration: Poor. Mood: Anxious Affect: Constricted DIAGNOSES: 1.. Chronic schizophrenia ASSESSMENT: Doesn't seem to be responding to internal stimuli, he is mildly irritable because he doesn't have his Metformin. I have told him I will put the order in for this medication MANAGEMENT PLAN: Continue with the current medicine and supportive therapy. TIME SPENT: 15 minutes. Vital Signs Vital Signs Date Time Temp Pulse Resp B/P (MAP) Pulse Ox O2 Delivery O2 Flow Rate FiO2 04/21/21 10:53 106/58 04/21/21 09:46 Room Air 04/21/21 06:57 97.7 81 20 95 Laboratory Data 24H Labs Laboratory Tests 2 04/20/21 17:08: Bedside Glucose (Misc Panel) 217H 04/20/21 20:07: Bedside Glucose (Misc Panel) 149H 04/21/21 06:25: Bedside Glucose (Misc Panel) 154H 04/21/21 12:07: Bedside Glucose (Misc Panel) 234H 04/21/21 17:01: Bedside Glucose (Misc Panel) 235H Current Medications Current Medications Medications (Trade) Dose Ordered Sig/Dar Route PRN Reason Start Time Stop Time Status Last Admin Dose Admin Acetaminophen (Tylenol Tab) 650 mg Q6HP PRN PO MILD PAIN or TEMP > 101 04/19/21 17:55 04/19/21 18:04 Al Hydrox/Mg Hydrox/Simethicone (Mylanta) 30 ml Q4HP PRN PO HEARTBURN 04/19/21 17:55 Aspirin (Aspirin Chewable) 81 mg DAILY PO 04/18/21 09:00 04/21/21 10:52 Atorvastatin Calcium (Lipitor) 40 mg DAILY PO 04/18/21 09:00 04/21/21 10:52 Dextrose (Dextrose 50%) 25 ml ASDIRECTED PRN IV SEE LABEL COMMENTS 04/18/21 00:00 Docusate Sodium (Colace) 100 mg BID PRN PO CONSTIPATION 04/18/21 16:40 Glucagon (Glucagon) 1 mg ASDIRECTED PRN SC SEE LABEL COMMENTS 04/18/21 00:00 Glucose (Glucose) 16 GM ASDIRECTED PRN PO SEE LABEL COMMENTS 04/18/21 00:00 Home Med (Med Rec Complete!) ASDIRECTED XX 04/18/21 17:10 04/18/21 17:17 DC Insulin Detemir (Levemir Insulin) 25 units BID SC 04/18/21 21:00 04/21/21 10:52 Insulin Human Lispro (HumaLOG INSULIN) See Protocol Table AC SC 04/18/21 07:30 04/21/21 17:01 Insulin Human Lispro (HumaLOG INSULIN) See Protocol Table QHS SC 04/18/21 21:00 Lisinopril (Prinivil) 10 mg DAILY PO 04/19/21 09:00 04/21/21 10:53 Magnesium Hydroxide (Milk Of Magnesia) 30 ml DAILY PO 04/20/21 09:00 04/21/21 10:52 Nicotine (Nicoderm Cq 14mg) 1 patch DAILYPRN PRN TD NICOTINE WITHDRAWAL 04/20/21 10:35 Olanzapine (ZyPREXA ZYDIS) 5 mg Q4HP PRN PO AGITATION 04/17/21 23:30 Risperidone (RisperDAL) 2 mg BID PO 04/20/21 09:00 04/21/21 10:53 Risperidone (RisperDAL) 2 mg DAILY PO 04/18/21 09:00 04/19/21 09:00 DC 04/19/21 09:09 Risperidone (RisperDAL) 2 mg DAILY PO 04/20/21 12:00 04/18/21 00:06 DC Trazodone HCl (Desyrel) 50 mg QHSP PRN PO INSOMNIA 04/19/21 17:55 Allergies Coded Allergies: No Known Allergies (Unverified , 06/06/20) HASEEB MARINELLI MD Apr 21, 2021 17:21
[2021-04-21] MEDS: metFORMIN XR 500MG TAB *GLUCOPHAGE XR PO SCH (17:56)
[2021-04-21] MEDS: ACETAMINOPHEN TAB 650MG DOSE (2X325MG) PO PRN (20:27)
[2021-04-21] MEDS: traZODone 50 MG TAB PO PRN (22:13)
[2021-04-22] MEDS: MAALOX 30 ML SUSP *UDC PO PRN ×2 (01:14→21:48)
[2021-04-22 06:55] VITALS: BP 123/68
[2021-04-22] MEDS: HumaLOG INSULIN (NovoLOG) PER UNIT SC SCH ×4 (08:00→21:00)
[2021-04-22] MEDS: ASPIRIN 81 MG CHEW TABLET PO SCH (08:43)
[2021-04-22] MEDS: ATORVASTATIN 20 MG TAB PO SCH (08:43)
[2021-04-22] MEDS: metFORMIN XR 500MG TAB *GLUCOPHAGE XR PO SCH ×2 (08:43→17:02)
[2021-04-22] MEDS: risperiDONE 2 MG TAB PO SCH ×2 (08:44→21:05)
[2021-04-22] MEDS: MOM 30ML SUSPENSION UDC PO SCH (08:44)
[2021-04-22] MEDS: LEVEMIR (INSULIN DETEMIR) 1 UNITS/0.01ML SC SCH ×2 (08:48→21:06)
--- NOTE | 2021-04-22 15:03 | MHIPNPDOC ---
[facility] Progress Note Progress Note DATE OF SERVICE: 04/22/21 HISTORY: The patient reported he had slept well, said appetite was OK, denied SI/HI. He has started taking Metformin ER 500 mgs PO BID since yesterday but his glucose remains high even when h is receiving Insulin. VITAL SIGNS: See below. NEW TEST RESULTS:. CURRENT MEDICATIONS: See below. MENTAL STATUS EXAMINATION: Patient is a 60-year old male, who is wearing hospital scrubs, with poor hygiene Speech: Loud ( he has trouble hearing), normal rate, rhythm and tone. Spontaneous Language skills : poor. Thought processes including: Not circumstantial, not tangential, linear Thought content: Continues fixated on his discharge, denies SI/HI, denies thought delusions. Abstract reasoning, and computation: Poor. Description of associations: not loose Description of abnormal or psychotic thoughts: Denies TAV hallucinations, not responding to internal stimuli Judgment: Poor. Insight: poor Orientation: Appears oriented. Recent and remote memory: He seems to have problems with remote memory Attention span and concentration: Poor. Mood: Anxious bu less than yesterday Affect: Constricted DIAGNOSES: 1.. Chronic schizophrenia ASSESSMENT: He is not suicidal or homicidal at this time but he is too focused on being discharged. He has difficulty hearing, makes it difficult for him to have a conversation and it seems as if this causes some frustration. he has started taking Metformin ER 500 mgs PO BID because he said he was on this medication before coming to the hospital and it was on his extended medication history. he had not been taking it since he came here but he has been using Insulin. His bllod glucose was still high this morning so he will have to watch his diet. MANAGEMENT PLAN: Continue with the current medicine and supportive therapy. TIME SPENT: 15 minutes. Vital Signs Vital Signs Date Time Temp Pulse Resp B/P (MAP) Pulse Ox O2 Delivery O2 Flow Rate FiO2 04/22/21 09:49 Room Air 04/22/21 08:43 123/68 04/22/21 06:55 97.4 91 20 95 Laboratory Data 24H Labs Laboratory Tests 2 04/21/21 17:01: Bedside Glucose (Misc Panel) 235H 04/21/21 20:25: Bedside Glucose (Misc Panel) 183H 04/22/21 05:56: Bedside Glucose (Misc Panel) 157H 04/22/21 11:52: Bedside Glucose (Misc Panel) 200H Current Medications Current Medications Medications (Trade) Dose Ordered Sig/Dar Route PRN Reason Start Time Stop Time Status Last Admin Dose Admin Acetaminophen (Tylenol Tab) 650 mg Q6HP PRN PO MILD PAIN or TEMP > 101 04/19/21 17:55 04/21/21 20:27 Al Hydrox/Mg Hydrox/Simethicone (Mylanta) 30 ml Q4HP PRN PO HEARTBURN 04/19/21 17:55 04/22/21 01:14 Aspirin (Aspirin Chewable) 81 mg DAILY PO 04/18/21 09:00 04/22/21 08:43 Atorvastatin Calcium (Lipitor) 40 mg DAILY PO 04/18/21 09:00 04/22/21 08:43 Dextrose (Dextrose 50%) 25 ml ASDIRECTED PRN IV SEE LABEL COMMENTS 04/18/21 00:00 Docusate Sodium (Colace) 100 mg BID PRN PO CONSTIPATION 04/18/21 16:40 Glucagon (Glucagon) 1 mg ASDIRECTED PRN SC SEE LABEL COMMENTS 04/18/21 00:00 Glucose (Glucose) 16 GM ASDIRECTED PRN PO SEE LABEL COMMENTS 04/18/21 00:00 Home Med (Med Rec Complete!) ASDIRECTED XX 04/18/21 17:10 04/18/21 17:17 DC Insulin Detemir (Levemir Insulin) 25 units BID SC 04/18/21 21:00 04/22/21 08:48 Insulin Human Lispro (HumaLOG INSULIN) See Protocol Table AC SC 04/18/21 07:30 04/22/21 12:17 Insulin Human Lispro (HumaLOG INSULIN) See Protocol Table QHS AL 04/18/21 21:00 Lisinopril (Prinivil) 10 mg DAILY PO 04/19/21 09:00 04/22/21 08:43 Magnesium Hydroxide (Milk Of Magnesia) 30 ml DAILY PO 04/20/21 09:00 04/22/21 08:44 Metformin HCl (Glucophage Xr) 500 mg BID@08,18 PO 04/21/21 18:00 04/22/21 08:43 Nicotine (Nicoderm Cq 14mg) 1 patch DAILYPRN PRN TD NICOTINE WITHDRAWAL 04/20/21 10:35 Olanzapine (ZyPREXA ZYDIS) 5 mg Q4HP PRN PO AGITATION 04/17/21 23:30 Risperidone (RisperDAL) 2 mg BID PO 04/20/21 09:00 04/22/21 08:44 Risperidone (RisperDAL) 2 mg DAILY PO 04/18/21 09:00 04/19/21 09:00 DC 04/19/21 09:09 Risperidone (RisperDAL) 2 mg DAILY PO 04/20/21 12:00 04/18/21 00:06 DC Trazodone HCl (Desyrel) 50 mg QHSP PRN PO INSOMNIA 04/19/21 17:55 04/21/21 22:13 Allergies Coded Allergies: No Known Allergies (Unverified , 06/06/20) HASEEB MARINELLI MD Apr 22, 2021 15:03
[2021-04-22] MEDS ORDERED: SIMETHICONE 80MG CHEW TAB PO PRN (15:15)
[2021-04-22 16:58] VITALS: BP 135/75
[2021-04-23 05:53] VITALS: BP 93/52
[2021-04-23] MEDS: HumaLOG INSULIN (NovoLOG) PER UNIT SC SCH ×4 (06:48→20:53)
[2021-04-23] MEDS: LEVEMIR (INSULIN DETEMIR) 1 UNITS/0.01ML SC SCH ×2 (08:27→20:48)
[2021-04-23] MEDS: ASPIRIN 81 MG CHEW TABLET PO SCH (08:28)
[2021-04-23] MEDS: metFORMIN XR 500MG TAB *GLUCOPHAGE XR PO SCH ×2 (08:29→17:16)
[2021-04-23] MEDS: ATORVASTATIN 20 MG TAB PO SCH (08:32)
[2021-04-23] MEDS: risperiDONE 2 MG TAB PO SCH ×2 (08:32→20:51)
[2021-04-23] MEDS: ACETAMINOPHEN TAB 650MG DOSE (2X325MG) PO PRN ×2 (08:35→17:19)
[2021-04-23] MEDS: MOM 30ML SUSPENSION UDC PO SCH (09:32)
--- NOTE | 2021-04-23 09:38 | MHIPNPDOC ---
[facility] Progress Note Progress Note DATE OF SERVICE: 04/23/21 Patient reports that he slept better with his melatonin and has no new complaint. He remains very withdrawn moderately irritable and not productive at all. He is in no acute distress has no new complaints but remains irritable withdrawn and depressed. HISTORY:. VITAL SIGNS: See below. NEW TEST RESULTS:. CURRENT MEDICATIONS: See below. MENTAL STATUS EXAMINATION: Patient is a 60-year old male, who is in no acute distress. Speech: Is relevant but not productive. Language skills are poor. Thought processes including: Relevant. Thought content: Denies any suicidal thoughts. Abstract reasoning, and computation: Poor. Description of associations: Minimally productive. Description of abnormal or psychotic thoughts: Superficially denies any problem. Judgment: Poor. Insight: Poor. Orientation: Oriented. Recent and remote memory: No gross impairment. Attention span and concentration:. Language:. Fund of knowledge:. Mood: Depressed irritable. Affect: Blunted and preoccupied. DIAGNOSES: 1.. Chronic schizophrenia 2.. 3.. ASSESSMENT: No significant knife changer PLAN: Continue with current treatment. TIME SPENT: 15 minutes. Vital Signs Vital Signs Date Time Temp Pulse Resp B/P (MAP) Pulse Ox O2 Delivery O2 Flow Rate FiO2 04/23/21 08:52 Room Air 04/23/21 08:32 89/67 04/23/21 05:53 97.9 85 18 98 Laboratory Data 24H Labs Laboratory Tests 2 04/22/21 11:52: Bedside Glucose (Misc Panel) 200H 04/22/21 16:57: Bedside Glucose (Misc Panel) 254H 04/22/21 20:11: Bedside Glucose (Misc Panel) 217H 04/23/21 06:18: Bedside Glucose (Misc Panel) 159H 04/23/21 07:03: CBC/BMP Laboratory Tests 04/23/21 07:03 Current Medications Current Medications Medications (Trade) Dose Ordered Sig/Dar Route PRN Reason Start Time Stop Time Status Last Admin Dose Admin Acetaminophen (Tylenol Tab) 650 mg Q6HP PRN PO MILD PAIN or TEMP > 101 04/19/21 17:55 04/23/21 08:35 Al Hydrox/Mg Hydrox/Simethicone (Mylanta) 30 ml Q4HP PRN PO HEARTBURN 04/19/21 17:55 04/22/21 21:48 Aspirin (Aspirin Chewable) 81 mg DAILY PO 04/18/21 09:00 04/23/21 08:28 Atorvastatin Calcium (Lipitor) 40 mg DAILY PO 04/18/21 09:00 04/23/21 08:32 Dextrose (Dextrose 50%) 25 ml ASDIRECTED PRN IV SEE LABEL COMMENTS 04/18/21 00:00 Docusate Sodium (Colace) 100 mg BID PRN PO CONSTIPATION 04/18/21 16:40 Glucagon (Glucagon) 1 mg ASDIRECTED PRN SC SEE LABEL COMMENTS 04/18/21 00:00 Glucose (Glucose) 16 GM ASDIRECTED PRN PO SEE LABEL COMMENTS 04/18/21 00:00 Home Med (Med Rec Complete!) ASDIRECTED XX 04/18/21 17:10 04/18/21 17:17 DC Insulin Detemir (Levemir Insulin) 25 units BID SC 04/18/21 21:00 04/23/21 08:27 Insulin Human Lispro (HumaLOG INSULIN) See Protocol Table AC SC 04/18/21 07:30 04/23/21 06:48 Insulin Human Lispro (HumaLOG INSULIN) See Protocol Table QHS SC 04/18/21 21:00 Lisinopril (Prinivil) 10 mg DAILY PO 04/19/21 09:00 04/22/21 08:43 Magnesium Hydroxide (Milk Of Magnesia) 30 ml DAILY PO 04/20/21 09:00 04/23/21 09:32 Metformin HCl (Glucophage Xr) 500 mg BID@08,18 PO 04/21/21 18:00 04/23/21 08:29 Nicotine (Nicoderm Cq 14mg) 1 patch DAILYPRN PRN TD NICOTINE WITHDRAWAL 04/20/21 10:35 Olanzapine (ZyPREXA ZYDIS) 5 mg Q4HP PRN PO AGITATION 04/17/21 23:30 Risperidone (RisperDAL) 2 mg BID PO 04/20/21 09:00 04/23/21 08:32 Risperidone (RisperDAL) 2 mg DAILY PO 04/18/21 09:00 04/19/21 09:00 DC 04/19/21 09:09 Risperidone (RisperDAL) 2 mg DAILY PO 04/20/21 12:00 04/18/21 00:06 DC Simethicone (Mylicon) 80 mg QIDP PRN PO GAS PAIN 04/22/21 15:15 Trazodone HCl (Desyrel) 50 mg QHSP PRN PO INSOMNIA 04/19/21 17:55 04/21/21 22:13 Allergies Coded Allergies: No Known Allergies (Unverified , 06/06/20) TOD ESPAÑA M.D. Apr 23, 2021 09:38
[2021-04-23 17:41] VITALS: BP 160/80
[2021-04-23] MEDS: traZODone 50 MG TAB PO PRN (20:50)
[2021-04-24] MEDS: HumaLOG INSULIN (NovoLOG) PER UNIT SC SCH ×2 (07:03→12:10)
[2021-04-24 07:15] VITALS: BP 144/73
[2021-04-24 08:51] VITALS: BP 139/73
[2021-04-24] MEDS: metFORMIN XR 500MG TAB *GLUCOPHAGE XR PO SCH (08:51)
[2021-04-24] MEDS: risperiDONE 2 MG TAB PO SCH (08:51)
[2021-04-24] MEDS: ASPIRIN 81 MG CHEW TABLET PO SCH (08:51)
[2021-04-24] MEDS: ATORVASTATIN 20 MG TAB PO SCH (08:52)
[2021-04-24] MEDS: LEVEMIR (INSULIN DETEMIR) 1 UNITS/0.01ML SC SCH (08:52)
[2021-04-24] MEDS: MOM 30ML SUSPENSION UDC PO SCH (09:31)
[2021-04-24] MEDS ORDERED: RISP-9 PO (09:59)
--- NOTE | 2021-04-25 10:19 | MHDSPDOC ---
[facility] Discharge Summary Discharge Summary DATE OF ADMISSION: Apr 18, 2021 at 01:09 DATE OF DISCHARGE: Apr 24, 2021 at 13:15 DISCHARGE DIAGNOSES: 1.. Chronic schizophrenia undifferentiated 2.. REASON FOR ADMISSION: 60-year-old male with long history of schizophrenia admitted after he came to emergency room reporting increasing suicidal thoughts. Patient apparently was sleeping on the street even though he has his own housing and came to emergency room reporting increasing suicidal thoughts. He was found to be very disheveled withdrawn and somewhat regressed. CONSULTANTS INVOLVED: Patient was seen for right foot wound care consult on April 20 and has been getting wound care and will be followed by Dr. Skaggs after disc harge TREATMENT AND PROGRESS ON THE UNIT : Patient was seen for supportive therapy and started back on risperidone 2 mg twice a day. He was continued on his insulin Lipitor metformin and lisinopril and seen for wound care consult and had a treatment to done during his stay. He has fully cooperated with the treatment but remained quite withdrawn and somewhat regressed and minimally responsive.. HOSPITAL COURSE: The patient cooperated with the medications and is wound care and understands that he needs to follow-up with his foot doctor Dr. Skaggs. He remained in good control although he was very withdrawn and not participating in much group activities. He has been eating well sleeping good and has no new complaint and maintained good control and did not show any suicidal behavior and did not require any extra medications for any behavior issues. After the first 5 days he is reporting that he is feeling much better and is asking for discharge claiming that he has his own housing which is confirmed and he is willing to continue follow-up with his foot doctor. He is denying any command hallucination denies any suicidal plan or intent and is willing to continue his outpatient mental health treatment. DISCHARGE ASSESSMENT: Stable at his baseline and denies any suicidal thoughts and behavior is in good control. MENTAL STATUS EXAMINATION ON DISCHARGE: Patient is a 60-year old male, who is in no acute distress. Speech is relevant but not productive. Language skills are fair. Thought processes including: Relevant. Thought content: Denies any suicidal thoughts. Abstract reasoning, and computation: Poor. Description of associations: Relevant. Description of abnormal or psychotic thoughts: Denies any command hallucination and denies any suicidal thoughts. Judgment: Fair. Insight: Fair. Orientation to oriented. Recent and remote memory: No gross impairment. Attention span and concentration: Poor. Language:. Fund of knowledge:. Mood: Denies any serious depression or suicidal thoughts. Affect: Blunted but appropriate. MEDICATIONS ON DISCHARGE: -For risperidone 2 mg twice a day for 7 days with 3 refills. -For. -For. PLAN/FOLLOWUP ARRANGEMENTS: Arranged by data processing systems project planner. The amount of time spent in the coordination of care for this patient was appro ximately 30 minutes. ETOH/Disorder Med Rx ETOH/DRUG DISORDER RX: N/A Vital Signs/I&Os Vital Signs Date Time Temp Pulse Resp B/P (MAP) Pulse Ox O2 Delivery O2 Flow Rate FiO2 04/24/21 08:51 139/73 04/24/21 07:15 98.2 102 16 96 Room Air Laboratory Data Labs 24H Laboratory Tests 2 04/24/21 12:06: Bedside Glucose (Misc Panel) 241H Medications Scheduled Aspirin (Aspirin) 81 Mg Tab.chew, 81 MG PO DAILY for ANTI-PLATELET, (Reported) Atorvastatin Calcium (Atorvastatin Calcium) 20 Mg Tablet, 40 MG PO DAILY for CHOLESTEROL, (Reported) Gabapentin (Gabapentin) 100 Mg Capsule, 100 MG PO TID for ., (Reported) Insulin Detemir (Levemir Flextouch) 100 Unit/1 Ml Insuln.pen, 50 UNIT SC QHS for DIABETES, (Reported) Lisinopril (Lisinopril) 10 Mg Tablet, 10 MG PO DAILY for HBP, (Reported) Metformin HCl (Metformin HCl ER) 500 Mg Tab.er.24h, 500 MG PO BID for DIABETES, (Reported) Paliperidone Palmitate (Invega Sustenna) 234 Mg/1.5 Ml Syringe, 234 MG IM QMONTH for PSYCHOSIS, (Reported) scheduled to come in 04/13/21 but was cancelled. Risperidone (Risperidone) 2 Mg Tablet, 2 MG PO BID for PSYCHOSIS for 7 Days, #14 Scheduled PRN Docusate Sodium (Docusate Sodium) 100 Mg Capsule, 100 MG PO BID PRN for CONSTIPATION, (Reported) Allergies Coded Allergies: No Known Allergies (Unverified , 06/06/20) TOD ESPAÑA M.D. Apr 25, 2021 10:19
== END 2021-04-24 13:15 | disposition home or self-care (01) | DRG 885 ==
LOC: M ED 17:42 → M ED INP 04-18 01:09 → M PSY 04-18 01:38
PROVIDERS: ADMIT Psychiatry & Neurology Psychiatry; ATTEND Psychiatry & Neurology Psychiatry
DX: F20.5 Residual schizophrenia (principal); R45.851 Suicidal ideations; Z79.899 Other long term (current) drug therapy; Z79.82 Long term (current) use of aspirin; I10 Essential (primary) hypertension; E11.65 Type 2 diabetes mellitus with hyperglycemia; G47.00 Insomnia, unspecified; F41.9 Anxiety disorder, unspecified; Z79.4 Long term (current) use of insulin; E78.5 Hyperlipidemia, unspecified; E11.621 Type 2 diabetes mellitus with foot ulcer; L97.519 Non-pressure chronic ulcer of other part of right foot with unspecified severity

== ENCOUNTER 2021-06-13 16:23 | Inpatient (IN) | payer MEDICARE, MEDICAID ==
[~2021-06-13] VITALS: Ht 182.9 cm; Wt 101.0 kg
[~2021-06-13 16:23] MED LIST changes: +CEPH500C PO; +DOK1CAP4 PO; -DOK1CAP7 PO; +DOXY-443 PO; -DOXY1CAP62 PO; +RISP-9 PO
[2021-06-13] MEDS ORDERED: GLUCOSE 4GM CHEW TABLET PO PRN (16:35)
[2021-06-13] MEDS ORDERED: DEXTROSE 50% 50 ML SYRINGE IV PRN (16:35)
[2021-06-13] MEDS ORDERED: GLUCAGON INJ 1MG VIAL SC PRN (16:35)
[2021-06-13] MEDS ORDERED: VANCOMYCIN HCL 750 MG, VIAL MATE ADAPTER 1 EACH in NS 250 ML IV SCH (16:35)
--- NOTE | 2021-06-13 18:01 | HPEPDOC ---
General Date of Admission 06/13/21 Date of Service: Jun 13, 2021 Chief Complaint The patient is a 60-year-old male admitted with a reason for visit of Osteomyalitis. 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 Patient complains of increased redness swelling of his right first toe extending up the top of the foot as well as in the plantar aspect of the foot at the base of the first hallux. Complained of increased discharge and foul smell. Patient does not have any pain sensation. He does feel some pressure and paresthesias in that area. He has bad neuropathy. Home Medications Scheduled Aspirin (Aspirin) 81 Mg Tab.chew, 81 MG PO DAILY, (Reported) Atorvastatin Calcium (Atorvastatin Calcium) 20 Mg Tablet, 20 MG PO DAILY, (Reported) Gabapentin (Gabapentin) 100 Mg Capsule, 100 MG PO TID, (Reported) Insulin Detemir (Levemir Flextouch) 100 Unit/1 Ml Insuln.pen, 45 UNITS SC QHS, (Reported) Lisinopril (Lisinopril) 10 Mg Tablet, 10 MG PO DAILY, (Reported) Metformin HCl (Metformin HCl ER) 500 Mg Tab.er.24h, 500 MG PO BID, (Reported) Scheduled PRN Docusate Sodium (Docusate Sodium) 100 Mg Capsule, 100 MG PO BID PRN for CONSTIPATION, (Reported) Allergies Coded Allergies: No Known Allergies (Unverified , 06/06/20) Past Medical History Medical History Essential hypertension. Bipolar disorder with anxiety. Diabetes type 2 uncontrolled Severe congenital hearing loss; has a right hearing aid. Insomnia. Right foot osteomyelitis with septic arthritis of the first MTP joint status post I&D done by Dr. Skaggs on 02/20. Polymicrobial karen treated with 4 weeks of cefdinir Buttock Rash: subacute spongiotic dermatitis Surgical History Mastoidectomy Right foot surgical debridement 2019 First MTP joint status post I&D done by Dr. Skaggs on 02/20. Family History Significant Family History: Diabetes Social History * Smoker: current smoker Alcohol: Denies Drugs: denies A-FIB/CHADSVASC A-FIB History Current/History of A-Fib/PAF?: No Review of Systems Constitutional: Denies: Chills, Fever, Night Sweats Eyes: Denies: Pain, Vision change ENT: Denies: Head Aches, Ear Pain, Dysphagia Skin: Reports: Breakdown; Denies: Rash, Lesions Pulmonary: Denies: Dyspnea, Cough Cardiovascular: Denies: Chest Pain, Palpitations, Orthopnea, Paroxysmal Noc. Dyspnea, Lt Headedness Gastrointestinal: Denies: Nausea, Vomiting, Abdominal Pain, Diarrhea Genitourinary: Denies: Dysuria, Frequency, Incontinence, Retention Hematologic: Denies: Bruising, Bleeding Excessively Neurological: Denies: Weakness, Numbness, Change in speech, Confusion Physical Examination General Exam: Positive: Alert, Cooperative, No Acute Distress Eye Exam: Positive: PERRLA, Conjunctiva & lids normal, EOMI; Negative: Sclera icteric ENT Exam: Positive: Atraumatic, Mucous membr. moist/pink, Pharynx Normal, Other ENT (Very hard of hearing) Neck Exam: Positive: Supple; Negative: JVD, thyromegaly Chest Exam: Positive: Clear to auscultation, Normal air movement Heart Exam: Positive: Rate Normal, Regular Rhythm, Normal S1, Normal S2; Negative: Murmurs, Rubs Abdomen Exam: Positive: Normal bowel sounds, Soft; Negative: Tenderness Extremity Exam: Negative: Clubbing, Cyanosis, Edema Skin Exam: Positive: Rash (few scattered at the buttocks ), Lesion (on the right first toe with macerated skin 1 open spot and inflammation extending to the dorsum and the plantar aspect of the toe), Other skin issue (right plantar heel ulcer 1 cm into 3 cm dry with clean base) Psych Exam: Positive: Memory Intact, Oriented x 3 Vital Signs Vital Signs Label Value Date Time Patient Temperature 97.3 degrees F 06/13/211847 Temperature Source Oral 06/13/211847 Pulse 103 06/13/211847 Respiratory Rate 18 bpm 06/13/211847 Blood Pressure Assessment 164/93 (116) 06/13/211847 Bedside Pulse Oximetry 96 % 06/13/211847 Item Value Date Time Oxygen Delivery Method Room Air 06/13/211847 Assessment/Plan 60-year-old male with past medical history of diabetes, hypertension, hyperlipidemia, schizophrenia, neuropathy presented from the bending [employer] worker's office for Right foot osteomyelitis. Right Foot Osteomyelitis Blood culture Vancomycin and Zosyn. Planned for OR on 06/13/21 Schizophrenia continue home meds Diabetes with neuropathy FS AC and HS continue levemir and lispro Gabapentin. Hypertension continue Lisinopril HLD continue Statin Plan / VTE VTE Prophylaxis Ordered?: Yes Daysi Pollard MD Jun 13, 2021 17:06
[2021-06-13 18:17] LABS: BASO # 0.1 10^3/uL (0.0-0.2); BASO % 0.5 % (0.0-1.0); EOS # 0.2 10^3/uL (0.0-0.5); EOS % 1.6 % (0.0-3.0); HEMATOCRIT 36.8 % (42.0-52.0); HEMOGLOBIN 11.9 g/dl (13.5-17.5); LYMPH # 2.9 10^3/uL (1.5-5.0); LYMPH % 19.3 % (24.0-44.0); MEAN CORPUSCULAR HEMOGLOBIN 27.5 pg (27.0-33.0); MEAN CORPUSCULAR HGB CONC 32.3 g/dl (32.0-36.5); MONO # 0.8 10^3/uL (0.0-0.8); MONO % 4.9 % (2.0-8.0); NEUTROPHILS # 11.1 10^3/uL (1.5-8.5); NEUTROPHILS % 73.2 % (36.0-66.0); PLATELET COUNT, AUTOMATED 378 10^3/uL (150-450); RED BLOOD COUNT 4.33 10^6/uL (4.30-6.10); WHITE BLOOD COUNT 15.2 10^3/uL (4.0-10.0)
[2021-06-13] MEDS: HumaLOG INSULIN (NovoLOG) PER UNIT SC SCH ×2 (18:21→21:00)
[2021-06-13 18:30] LABS: INR 1.18; PROTHROMBIN TIME 15.4 SECONDS (12.7-14.5)
[2021-06-13 18:31] LABS: PARTIAL THROMBOPLASTIN TIME 33.1 SECONDS (25.9-37.0)
[2021-06-13 18:35] LABS: ALBUMIN 3.3 GM/DL (3.2-5.2); ALT/SGPT 14 U/L (12-78); BILIRUBIN,TOTAL 0.4 MG/DL (0.2-1.0); BLOOD UREA NITROGEN 15 MG/DL (7-18); CALCIUM LEVEL 9.1 MG/DL (8.8-10.2); CARBON DIOXIDE LEVEL 29 MEQ/L (21-32); CHLORIDE LEVEL 100 MEQ/L (98-107); CREATININE FOR GFR 0.95 MG/DL (0.70-1.30); GLOMERULAR FILTRATION RATE > 60.0 (>49); GLUCOSE, FASTING 134 MG/DL (70-100); POTASSIUM SERUM 3.8 MEQ/L (3.5-5.1); SODIUM LEVEL 137 MEQ/L (136-145); TOTAL PROTEIN 8.7 GM/DL (6.4-8.2)
[2021-06-13 18:48] VITALS: BP 164/93
[2021-06-13] MEDS: PIPERACILLIN/TAZOBACTAM SOD 3.375 GM in D5W MINI-BAG PLUS 50 ML IV SCH (19:37)
[2021-06-13] MEDS: traMADol 50 MG TAB PO PRN (19:38)
[2021-06-13] MEDS ORDERED: VANCOMYCIN HCL 1,000 MG, VIAL MATE ADAPTER 1 EACH in NS 250 ML IV ONE ×2 (21:00→22:00)
[2021-06-13] MEDS: NICOTINE 21MG/24HR 1 EA TRANSDERMAL TD SCH (21:15)
[2021-06-13 22:00] VITALS: BP 133/66
[2021-06-14] VITALS (8 sets, daily range): BP systolic 112–136; BP diastolic 62–82
[2021-06-14] MEDS: PIPERACILLIN/TAZOBACTAM SOD 3.375 GM in D5W MINI-BAG PLUS 50 ML IV SCH ×4 (02:49→21:56)
[2021-06-14] MEDS: VANCOMYCIN HCL 750 MG, VIAL MATE ADAPTER 1 EACH in NS 250 ML IV SCH ×4 (04:28→20:37)
[2021-06-14] MEDS: traMADol 50 MG TAB PO PRN ×2 (06:08→14:41)
[2021-06-14 06:14] LABS: BASO # 0.1 10^3/uL (0.0-0.2); BASO % 0.5 % (0.0-1.0); EOS # 0.3 10^3/uL (0.0-0.5); EOS % 2.8 % (0.0-3.0); HEMATOCRIT 33.5 % (42.0-52.0); LYMPH % 27.3 % (24.0-44.0); MEAN CORPUSCULAR HEMOGLOBIN 27.6 pg (27.0-33.0); MEAN CORPUSCULAR HGB CONC 32.8 g/dl (32.0-36.5); MONO # 0.7 10^3/uL (0.0-0.8); MONO % 6.1 % (2.0-8.0); NEUTROPHILS % 62.9 % (36.0-66.0); PLATELET COUNT, AUTOMATED 324 10^3/uL (150-450); RED BLOOD COUNT 3.99 10^6/uL (4.30-6.10); WHITE BLOOD COUNT 11.1 10^3/uL (4.0-10.0)
[2021-06-14 06:37] LABS: BLOOD UREA NITROGEN 12 MG/DL (7-18); CALCIUM LEVEL 8.7 MG/DL (8.8-10.2); CARBON DIOXIDE LEVEL 29 MEQ/L (21-32); CHLORIDE LEVEL 105 MEQ/L (98-107); CREATININE FOR GFR 0.83 MG/DL (0.70-1.30); GLOMERULAR FILTRATION RATE > 60.0 (>49); GLUCOSE, FASTING 114 MG/DL (70-100); POTASSIUM SERUM 3.9 MEQ/L (3.5-5.1); SODIUM LEVEL 138 MEQ/L (136-145)
[2021-06-14] MEDS: HumaLOG INSULIN (NovoLOG) PER UNIT SC SCH ×4 (07:30→20:24)
[2021-06-14] MEDS: NICOTINE 21MG/24HR 1 EA TRANSDERMAL TD SCH (08:16)
[2021-06-14] MEDS ORDERED: HOME MED LIST COMPLETE! XX SCH (08:35)
[2021-06-14] MEDS ORDERED: risperiDONE 2 MG TAB PO SCH (09:00)
[2021-06-14] MEDS: ATORVASTATIN 20 MG TAB PO SCH (09:57)
[2021-06-14] MEDS: GABAPENTIN 100 MG CAP PO SCH ×3 (09:57→20:37)
--- NOTE | 2021-06-14 10:32 | IPNPDOC ---
Subjective Date Seen The patient was seen on 06/14/21. Subjective Chief Complaint/HPI No complaints this morning. Awaiting to go to the OR this afternoon. No fever or chills. No pain. Objective Physical Examination General Exam: Positive: Alert, Cooperative, No Acute Distress Eye Exam: Positive: PERRLA, Conjunctiva & lids normal, EOMI; Negative: Sclera icteric ENT Exam: Positive: Atraumatic, Mucous membr. moist/pink, Pharynx Normal, Other ENT (Very hard of hearing) Neck Exam: Positive: Supple; Negative: JVD, thyromegaly Chest Exam: Positive: Clear to auscultation, Normal air movement Heart Exam: Positive: Rate Normal, Regular Rhythm, Normal S1, Normal S2; Negative: Murmurs, Rubs Abdomen Exam: Positive: Normal bowel sounds, Soft; Negative: Tenderness Extremity Exam: Negative: Clubbing, Cyanosis, Edema Skin Exam: Positive: Rash (few scattered at the buttocks ), Lesion (on the right first toe with macerated skin 1 open spot and inflammation extending to the dorsum and the plantar aspect of the toe), Other skin issue (right plantar heel ulcer 1 cm into 3 cm dry with clean base) Psych Exam: Positive: Memory Intact, Oriented x 3 Assessment /Plan Assessment 60-year-old male with past medical history of diabetes, hypertension, hyperlipidemia, schizophrenia, neuropathy 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 Right Foot Osteomyelitis Blood culture Vancomycin and Zosyn. Planned for OR on 06/13/21 Schizophrenia continue home meds Diabetes with neuropathy FS AC and HS continue levemir and lispro Gabapentin. Hypertension continue Lisinopril HLD continue Statin Plan/VTE VTE Prophylaxis Ordered?: Yes VS, I&O, 24H, Fishbone Vital Signs/I&O Vital Signs Date Time Temp Pulse Resp B/P (MAP) Pulse Ox O2 Delivery O2 Flow Rate FiO2 06/14/21 10:00 140/79 06/14/21 06:38 16 06/14/21 06:00 97.6 82 97 Room Air I&O- Last 24 Hours up to 6 AM 06/14/21 06:00 Intake Total 1665 ml Output Total 1150 ml Balance 515 ml Laboratory Data 24H LABS Laboratory Tests 2 06/13/21 17:43: Bedside Glucose (Misc Panel) 135H 06/13/21 17:45: Coronavirus (COVID-19)(PCR) NEGATIVE 06/13/21 17:55: Immature Granulocyte % (Auto) 0.5, Neutrophils (%) (Auto) 73.2H, Lymphocytes (%) (Auto) 19.3L, Monocytes (%) (Auto) 4.9, Eosinophils (%) (Auto) 1.6, Basophils (%) (Auto) 0.5, Neutrophils # (Auto) 11.1H, Lymphocytes # (Auto) 2.9, Monocytes # (Auto) 0.8, Eosinophils # (Auto) 0.2, Basophils # (Auto) 0.1, Nucleated Red Blood Cells % (auto) 0.0, Prothrombin Time 15.4H, Prothromb Time International Ratio 1.18, Activated Partial Thromboplast Time 33.1, Anion Gap 8, Glomerular Filtration Rate > 60.0, Calcium Level 9.1, Total Bilirubin 0.4, Aspartate Amino Transf (AST/SGOT) 7, Alanine Aminotransferase (ALT/SGPT) 14, Alkaline Phosphatase 112, Total Protein 8.7H, Albumin 3.3, Albumin/Globulin Ratio 0.6 06/13/21 21:09: Bedside Glucose (Misc Panel) 182H 06/14/21 05:24: Immature Granulocyte % (Auto) 0.4, Neutrophils (%) (Auto) 62.9, Lymphocytes (%) (Auto) 27.3, Monocytes (%) (Auto) 6.1, Eosinophils (%) (Auto) 2.8, Basophils (%) (Auto) 0.5, Neutrophils # (Auto) 7.0, Lymphocytes # (Auto) 3.0, Monocytes # (Auto) 0.7, Eosinophils # (Auto) 0.3, Basophils # (Auto) 0.1, Nucleated Red Blood Cells % (auto) 0.0, Anion Gap 4L, Glomerular Filtration Rate > 60.0, Calcium Level 8.7L CBC/BMP Laboratory Tests 06/13/21 17:55 06/14/21 05:24 Microbiology Microbiology 06/13/21 Blood Culture, Received Pending Daysi Pollard MD Jun 14, 2021 10:32
[2021-06-14] MEDS ORDERED: propofoL 200 MG/20 ML VIAL As Ordered ONE (15:40)
[2021-06-14] MEDS ORDERED: LIDOCAINE 2% 100MG/5ML SDV (FOR ANES.) As Ordered ONE (15:40)
[2021-06-14] MEDS ORDERED: fentaNYL 100 MCG/2 ML INJECTION (J3010) As Ordered ONE (15:41)
[2021-06-14] MEDS ORDERED: MIDAZOLAM INJ 2MG/2ML VIAL (J2250 PER 1MG) As Ordered ONE (15:41)
[2021-06-14] MEDS ORDERED: BUPIVACAINE HCL 0.5% 10ML VIAL As Ordered ONE (15:45)
[2021-06-14] MEDS ORDERED: LIDOCAINE 1% MDV 20ML VIAL As Ordered ONE (15:45)
--- NOTE | 2021-06-14 17:32 | CR ---
CONSULTATION DATE: 06/14/2021 REASON FOR CONSULTATION: Right foot infection. Jose Yuan is a 60-year-old patient with longstanding ulceration. He was in my office yesterday with worsening condition of his right hallux. He has had an ulceration for several months. He has intermittent compliance and has not follows through with home nursing care. On examination, there was purulent drainage coming from the wound with further signs of osteomyelitis. MEDICAL HISTORY: Significant for: 1. Diabetes. 2. Hypertension. 3. Hyperlipidemia. 4. Schizophrenia. 5. Neuropathy. SURGICAL HISTORY: 1. Mastoidectomy. 2. Right surgical debridement. FAMILY HISTORY: Diabetes. SOCIAL HISTORY: Positive for smoking. REVIEW OF SYSTEMS: Negative for nausea, vomiting, fever, chills. VITAL SIGNS: He has been afebrile. LABORATORY DATA: White blood cell count 15.2 on admission. LOWER EXTREMITY EXAMINATION: Erythema and edema from the right first metatarsophalangeal joint with positive probe to bone and purulent drainage extending from the wound. ASSESSMENT: A 60-year-old diabetic male with osteomyelitis. PLAN: Operating room (OR) now for 1st ray amputation.
[2021-06-14] MEDS ORDERED: ONDANSETRON 4MG/2ML VIAL IV PRN (17:50)
[2021-06-14] MEDS ORDERED: LR 1,000 ML IV SCH (17:50)
[2021-06-14] MEDS ORDERED: fentaNYL 100 MCG/2 ML INJECTION (J3010) IV PRN (17:50)
[2021-06-14] MEDS: PERCOCET 5MG/325MG TAB PO PRN (21:12)
[2021-06-14] MEDS: ACETAMINOPHEN TAB 650MG DOSE (2X325MG) PO PRN (21:57)
[2021-06-15] MEDS: PIPERACILLIN/TAZOBACTAM SOD 3.375 GM in D5W MINI-BAG PLUS 50 ML IV SCH ×4 (01:44→19:41)
[2021-06-15 02:00] VITALS: BP 119/73
[2021-06-15] MEDS: PERCOCET 5MG/325MG TAB PO PRN ×3 (04:20→15:31)
[2021-06-15 04:38] LABS: BASO # 0.1 10^3/uL (0.0-0.2); BASO % 0.3 % (0.0-1.0); EOS # 0.2 10^3/uL (0.0-0.5); EOS % 1.7 % (0.0-3.0); HEMATOCRIT 35.1 % (42.0-52.0); HEMOGLOBIN 11.5 g/dl (13.5-17.5); LYMPH # 1.6 10^3/uL (1.5-5.0); LYMPH % 11.3 % (24.0-44.0); MEAN CORPUSCULAR HEMOGLOBIN 27.4 pg (27.0-33.0); MEAN CORPUSCULAR HGB CONC 32.8 g/dl (32.0-36.5); MEAN CORPUSCULAR VOLUME 83.8 fl (80.0-96.0); MONO # 0.8 10^3/uL (0.0-0.8); MONO % 5.4 % (2.0-8.0); NEUTROPHILS # 11.7 10^3/uL (1.5-8.5); PLATELET COUNT, AUTOMATED 305 10^3/uL (150-450); RED BLOOD COUNT 4.19 10^6/uL (4.30-6.10); WHITE BLOOD COUNT 14.5 10^3/uL (4.0-10.0)
[2021-06-15 05:04] LABS: BLOOD UREA NITROGEN 13 MG/DL (7-18); CALCIUM LEVEL 8.5 MG/DL (8.8-10.2); CARBON DIOXIDE LEVEL 27 MEQ/L (21-32); CHLORIDE LEVEL 104 MEQ/L (98-107); CREATININE FOR GFR 0.88 MG/DL (0.70-1.30); GLOMERULAR FILTRATION RATE > 60.0 (>49); GLUCOSE, FASTING 139 MG/DL (70-100); POTASSIUM SERUM 3.8 MEQ/L (3.5-5.1); SODIUM LEVEL 137 MEQ/L (136-145); VANCOMYCIN LEVEL TROUGH 15.6 UG/ML (10.0-20.0)
[2021-06-15] MEDS: VANCOMYCIN HCL 750 MG, VIAL MATE ADAPTER 1 EACH in NS 250 ML IV SCH ×4 (05:18→17:54)
[2021-06-15 06:00] VITALS: BP 121/74
[2021-06-15] MEDS: GABAPENTIN 100 MG CAP PO SCH ×3 (09:08→21:22)
[2021-06-15] MEDS: NICOTINE 21MG/24HR 1 EA TRANSDERMAL TD SCH (09:09)
[2021-06-15] MEDS: ATORVASTATIN 20 MG TAB PO SCH (09:09)
[2021-06-15] MEDS: HumaLOG INSULIN (NovoLOG) PER UNIT SC SCH ×4 (09:10→21:00)
[2021-06-15 10:00] VITALS: BP 127/73
--- NOTE | 2021-06-15 11:57 | IPNPDOC ---
Subjective Date Seen The patient was seen on 06/15/21. Subjective Chief Complaint/HPI No complaints this morning. Foot pain is controlled with current pain regimen. No fever or chills. Objective Physical Examination General Exam: Positive: Alert, Cooperative, No Acute Distress Eye Exam: Positive: PERRLA, Conjunctiva & lids normal, EOMI; Negative: Sclera icteric ENT Exam: Positive: Atraumatic, Mucous membr. moist/pink, Pharynx Normal, Other ENT (Very hard of hearing) Neck Exam: Positive: Supple; Negative: JVD, thyromegaly Chest Exam: Positive: Clear to auscultation, Normal air movement Heart Exam: Positive: Rate Normal, Regular Rhythm, Normal S1, Normal S2; Negative: Murmurs, Rubs Abdomen Exam: Positive: Normal bowel sounds, Soft; Negative: Tenderness Extremity Exam: Negative: Clubbing, Cyanosis, Edema Skin Exam: Positive: Rash (few scattered at the buttocks ), Lesion (on the right first toe with macerated skin 1 open spot and inflammation extending to the dorsum and the plantar aspect of the toe), Other skin issue (right plantar heel ulcer 1 cm into 3 cm dry with clean base) Psych Exam: Positive: Memory Intact, Oriented x 3 Assessment /Plan Assessment 60-year-old male with past medical history of diabetes, hypertension, hy perlipidemia, schizophrenia, neuropathy 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 Right Foot Osteomyelitis Blood culture Vancomycin and Zosyn. s/p OR on 06/13/21, cultures have been sent from the OR. Schizophrenia continue home meds Diabetes with neuropathy FS AC and HS continue levemir and lispro Gabapentin. Hypertension continue Lisinopril HLD continue Statin Plan/VTE VTE Prophylaxis Ordered?: Yes VS, I&O, 24H, Fishbone Vital Signs/I&O Vital Signs Date Time Temp Pulse Resp B/P (MAP) Pulse Ox O2 Delivery O2 Flow Rate FiO2 06/15/21 10:57 16 06/15/21 10:00 98.2 84 127/73 (91) 96 Room Air I&O- Last 24 Hours up to 6 AM 06/15/21 05:59 Intake Total 1270 ml Output Total 3140 ml Balance -1870 ml Laboratory Data 24H LABS Laboratory Tests 2 06/14/21 12:00: Bedside Glucose (Misc Panel) 153H 06/14/21 15:56: Bedside Glucose (Misc Panel) 126H 06/14/21 17:37: Bedside Glucose (Misc Panel) 105 06/14/21 19:52: Bedside Glucose (Misc Panel) 204H 06/15/21 04:18: Immature Granulocyte % (Auto) 0.3, Neutrophils (%) (Auto) 81.0H, Lymphocytes (%) (Auto) 11.3L, Monocytes (%) (Auto) 5.4, Eosinophils (%) (Auto) 1.7, Basophils (%) (Auto) 0.3, Neutrophils # (Auto) 11.7H, Lymphocytes # (Auto) 1.6, Monocytes # (Auto) 0.8, Eosinophils # (Auto) 0.2, Basophils # (Auto) 0.1, Nucleated Red Blood Cells % (auto) 0.0, Anion Gap 6L, Glomerular Filtration Rate > 60.0, Calcium Level 8.5L, Vancomycin Level Trough 15.6 06/15/21 11:28: Bedside Glucose (Misc Panel) 198H CBC/BMP Laboratory Tests 06/15/21 04:18 Microbiology Microbiology 06/14/21 Gram Stain - Final, Resulted 06/14/21 Wound Culture, Resulted Pending 06/14/21 Anaerobic Culture, Resulted Pending 06/13/21 Blood Culture - Preliminary, Resulted No growth after 24 hours . All specim... Daysi Pollard MD Jun 15, 2021 11:57
[2021-06-15] MEDS: DOCUSATE SODIUM 100MG CAPSULE PO SCH ×3 (12:52→21:22)
[2021-06-15] MEDS: ASPIRIN 81 MG CHEW TABLET PO SCH (12:52)
[2021-06-15] MEDS: LEVEMIR (INSULIN DETEMIR) 1 UNITS/0.01ML SC SCH ×2 (12:55→21:22)
[2021-06-15 14:00] VITALS: BP 125/70
--- NOTE | 2021-06-15 14:59 | IPN ---
PROGRESS NOTE DATE: 06/15/2021 Patient seen and examined at bedside. Denies new complaints. States pain control. VITAL SIGNS: Maximum temperature (T-max) 99.6. LABORATORY DATA: White blood cell count is 14.5. LOWER EXTREMITY EXAMINATION: Erythema and edema improved. Wound is well coapted without wound dehiscence. ASSESSMENT: A 60-year-old diabetic male status post right hallux and 1st ray amputation. PLAN: Dressings changed. Await operating room (OR) cultures. Continue empiric antibiotics.
[2021-06-15 22:00] VITALS: BP 123/72
[2021-06-16] VITALS (7 sets, daily range): BP systolic 116–155; BP diastolic 59–81
[2021-06-16] MEDS: PIPERACILLIN/TAZOBACTAM SOD 3.375 GM in D5W MINI-BAG PLUS 50 ML IV SCH ×4 (02:53→20:29)
[2021-06-16 04:18] LABS: BASO % 0.3 % (0.0-1.0); EOS # 0.2 10^3/uL (0.0-0.5); EOS % 1.9 % (0.0-3.0); HEMATOCRIT 32.8 % (42.0-52.0); HEMOGLOBIN 10.9 g/dl (13.5-17.5); LYMPH # 1.7 10^3/uL (1.5-5.0); LYMPH % 14.2 % (24.0-44.0); MEAN CORPUSCULAR HEMOGLOBIN 27.9 pg (27.0-33.0); MEAN CORPUSCULAR HGB CONC 33.2 g/dl (32.0-36.5); MEAN CORPUSCULAR VOLUME 84.1 fl (80.0-96.0); MONO # 0.7 10^3/uL (0.0-0.8); NEUTROPHILS # 9.4 10^3/uL (1.5-8.5); NEUTROPHILS % 77.3 % (36.0-66.0); PLATELET COUNT, AUTOMATED 276 10^3/uL (150-450); WHITE BLOOD COUNT 12.2 10^3/uL (4.0-10.0)
[2021-06-16 04:39] LABS: BLOOD UREA NITROGEN 14 MG/DL (7-18); CALCIUM LEVEL 8.2 MG/DL (8.8-10.2); CARBON DIOXIDE LEVEL 29 MEQ/L (21-32); CHLORIDE LEVEL 102 MEQ/L (98-107); CREATININE FOR GFR 0.87 MG/DL (0.70-1.30); GLOMERULAR FILTRATION RATE > 60.0 (>49); GLUCOSE, FASTING 120 MG/DL (70-100); POTASSIUM SERUM 3.5 MEQ/L (3.5-5.1); SODIUM LEVEL 139 MEQ/L (136-145)
[2021-06-16] MEDS: VANCOMYCIN HCL 750 MG, VIAL MATE ADAPTER 1 EACH in NS 250 ML IV SCH ×2 (05:08→16:46)
[2021-06-16] MEDS: VANCOMYCIN HCL 1,000 MG, VIAL MATE ADAPTER 1 EACH in NS 250 ML IV SCH ×2 (06:37→18:18)
[2021-06-16] MEDS: HumaLOG INSULIN (NovoLOG) PER UNIT SC SCH ×4 (08:36→20:29)
[2021-06-16] MEDS: ATORVASTATIN 20 MG TAB PO SCH (08:37)
[2021-06-16] MEDS: NICOTINE 21MG/24HR 1 EA TRANSDERMAL TD SCH (08:37)
[2021-06-16] MEDS: GABAPENTIN 100 MG CAP PO SCH ×3 (08:37→20:29)
[2021-06-16] MEDS: ASPIRIN 81 MG CHEW TABLET PO SCH (08:37)
[2021-06-16] MEDS: DOCUSATE SODIUM 100MG CAPSULE PO SCH ×2 (08:37→20:29)
[2021-06-16] MEDS: LEVEMIR (INSULIN DETEMIR) 1 UNITS/0.01ML SC SCH ×2 (08:38→20:29)
--- NOTE | 2021-06-16 08:56 | RO ---
OPERATIVE NOTE DATE OF OPERATION: 06/14/2021 PREOPERATIVE DIAGNOSIS: Right foot hallux and first metatarsal osteomyelitis and infection. POSTOPERATIVE DIAGNOSIS: Right foot hallux and first metatarsal osteomyelitis and infection. PROCEDURE: Right hallux and first ray amputation. SURGEON: Aman Skaggs DPM MANAGED SECURITY SALES CONSULTANT: ANESTHESIA: Monitored anesthesia care, preop injection of 20 mL of a 1:1 mixture of 1% lidocaine plain, 1/2% Marcaine plain. ESTIMATED BLOOD LOSS: Minimal. MATERIALS: 3-0 nylon. INJECTABLES: None. SPECIMENS: Right hallux and first metatarsal, aerobic and anaerobic cultures. COMPLICATION: None. CONDITION: Stable. INDICATIONS: Jose Yuan is a 6-year-old male who was admitted to [facility] with worsening condition of his diabetic ulceration. He has had this for several months. He has intermittent compliance in terms of followup and dressing changes. The wound has worsened to the point necessitating amputation. The patient's side and site were identified and marked in the preoperative area. Consent was reviewed and obtained. The risks, complications and alternatives to the procedure were explained to the patient in detail and all questions were answered. DESCRIPTION OF PROCEDURE: The patient was brought to the operating room and placed on the operating room table in supine position. Monitored anesthesia was delivered by the anesthesia team. A preop injection of 20 mL of a 1:1 mixture of 1% lidocaine plain and 1/2% Marcaine plain was injected into the right foot. The right foot was prepped and draped in normal sterile fashion. A tourniquet was applied to the right thigh and inflated at 250 mmHg. Using a #15 blade, the toe was disarticulated in the metatarsophalangeal joint and sent for pathology. Following this, an incision was made along the medial aspect of the first metatarsal. The bone was noted to be necrotic with erosive changes consistent with osteomyelitis. Using a sagittal saw, metatarsal head and part of the neck was resected. This was sent for pathology. Wound culture was taken of the purulent fluid, aerobic and anaerobic. Nonviable tissue was removed using a #15 blade. Once no further obvious infected tissue was noted, the site was irrigated with normal saline and the wound was closed using 3-0 nylon. Sterile dressings were applied. The patient was brought to PACU with vital signs stable, neurovascular status intact. He will be admitted to the floor for continued antibiotics and monitoring.
--- NOTE | 2021-06-16 10:23 | IPNPDOC ---
Subjective Date Seen The patient was seen on 06/16/21. Subjective Chief Complaint/HPI No complaints this morning. Pain is controlled. Complains of dry skin and some itching and asked for some moisturizer. No fever or chills. Good appetite Objective Physical Examination General Exam: Positive: Alert, Cooperative, No Acute Distress Eye Exam: Positive: PERRLA, Conjunctiva & lids normal, EOMI; Negative: Sclera icteric ENT Exam: Positive: Atraumatic, Mucous membr. moist/pink, Pharynx Normal, Other ENT (Very hard of hearing) Neck Exam: Positive: Supple; Negative: JVD, thyromegaly Chest Exam: Positive: Clear to auscultation, Normal air movement Heart Exam: Positive: Rate Normal, Regular Rhythm, Normal S1, Normal S2; Negative: Murmurs, Rubs Abdomen Exam: Positive: Normal bowel sounds, Soft; Negative: Tenderness Extremity Exam: Negative: Clubbing, Cyanosis, Edema Skin Exam: Positive: Rash (few scattered at the buttocks ), Lesion (on the right first toe with macerated skin 1 open spot and inflammation extending to the dorsum and the plantar aspect of the toe), Other skin issue (right plantar heel ulcer 1 cm into 3 cm dry with clean base) Psych Exam: Positive: Memory Intact, Oriented x 3 Assessment /Plan Assessment 60-year-old male with past medical history of diabetes, hypertension, hyperlipidemia, schizophrenia, neuropathy 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 Right foot hallux and first metatarsal osteomyelitis and infection. s/p Right hallux and first ray amputation. Vancomycin and Zosyn. s/p OR on 06/13/21, cultures have been sent from the OR. Blood cultures negative till date Schizophrenia continue home meds Diabetes with neuropathy FS AC and HS continue levemir and lispro Gabapentin. Hypertension continue Lisinopril HLD continue Statin Congenital hearing loss Extremely hard of hearing Plan/VTE VTE Prophylaxis Ordered?: Yes VS, I&O, 24H, Fishbone Vital Signs/I&O Vital Signs Date Time Temp Pulse Resp B/P (MAP) Pulse Ox O2 Delivery O2 Flow Rate FiO2 06/16/21 10:00 99.0 89 16 124/72 (89) 98 Room Air I&O- Last 24 Hours up to 6 AM 06/16/21 06:00 Intake Total 2190 ml Output Total 2850 ml Balance -660 ml Laboratory Data 24H LABS Laboratory Tests 2 06/15/21 11:28: Bedside Glucose (Misc Panel) 198H 06/15/21 16:36: Bedside Glucose (Misc Panel) 147H 06/15/21 20:14: Bedside Glucose (Misc Panel) 162H 06/16/21 04:00: Immature Granulocyte % (Auto) 0.3, Neutrophils (%) (Auto) 77.3H, Lymphocytes (%) (Auto) 14.2L, Monocytes (%) (Auto) 6.0, Eosinophils (%) (Auto) 1.9, Basophils (%) (Auto) 0.3, Neutrophils # (Auto) 9.4H, Lymphocytes # (Auto) 1.7, Monocytes # (Auto) 0.7, Eosinophils # (Auto) 0.2, Basophils # (Auto) 0.0, Nucleated Red Blood Cells % (auto) 0.0, Anion Gap 8, Glomerular Filtration Rate > 60.0, Calcium Level 8.2L, Vancomycin Level Trough 13.1 CBC/BMP Laboratory Tests 06/16/21 04:00 Microbiology Microbiology 06/14/21 Gram Stain - Final, Resulted 06/14/21 Wound Culture, Resulted Pending 06/14/21 Anaerobic Culture, Resulted Pending 06/13/21 Blood Culture - Preliminary, Resulted No Growth after 48 hours. All Specime... Daysi Pollard MD Jun 16, 2021 10:23
[2021-06-17] MEDS: PIPERACILLIN/TAZOBACTAM SOD 3.375 GM in D5W MINI-BAG PLUS 50 ML IV SCH ×4 (01:39→20:41)
[2021-06-17 04:58] LABS: BASO # 0.1 10^3/uL (0.0-0.2); BASO % 0.7 % (0.0-1.0); EOS # 0.3 10^3/uL (0.0-0.5); EOS % 3.2 % (0.0-3.0); HEMATOCRIT 34.2 % (42.0-52.0); HEMOGLOBIN 11.3 g/dl (13.5-17.5); LYMPH # 1.9 10^3/uL (1.5-5.0); LYMPH % 17.8 % (24.0-44.0); MEAN CORPUSCULAR HEMOGLOBIN 27.8 pg (27.0-33.0); MEAN CORPUSCULAR VOLUME 84.2 fl (80.0-96.0); MONO # 0.7 10^3/uL (0.0-0.8); MONO % 6.8 % (2.0-8.0); NEUTROPHILS # 7.5 10^3/uL (1.5-8.5); PLATELET COUNT, AUTOMATED 305 10^3/uL (150-450); RED BLOOD COUNT 4.06 10^6/uL (4.30-6.10); WHITE BLOOD COUNT 10.6 10^3/uL (4.0-10.0)
[2021-06-17 05:29] LABS: BLOOD UREA NITROGEN 13 MG/DL (7-18); CALCIUM LEVEL 8.6 MG/DL (8.8-10.2); CARBON DIOXIDE LEVEL 30 MEQ/L (21-32); CHLORIDE LEVEL 105 MEQ/L (98-107); CREATININE FOR GFR 0.88 MG/DL (0.70-1.30); GLOMERULAR FILTRATION RATE > 60.0 (>49); GLUCOSE, FASTING 117 MG/DL (70-100); POTASSIUM SERUM 3.8 MEQ/L (3.5-5.1); SODIUM LEVEL 139 MEQ/L (136-145); VANCOMYCIN LEVEL TROUGH 14.4 UG/ML (10.0-20.0)
[2021-06-17 06:00] VITALS: BP 119/65
[2021-06-17] MEDS ORDERED: VANCOMYCIN HCL 1,000 MG, VIAL MATE ADAPTER 1 EACH in NS 250 ML IV SCH (06:00)
[2021-06-17] MEDS: MIRALAX *UNIT DOSE* 17GM PACKET PO SCH (08:30)
[2021-06-17] MEDS: ATORVASTATIN 20 MG TAB PO SCH (08:31)
[2021-06-17] MEDS: NICOTINE 21MG/24HR 1 EA TRANSDERMAL TD SCH (08:31)
[2021-06-17] MEDS: LEVEMIR (INSULIN DETEMIR) 1 UNITS/0.01ML SC SCH ×2 (08:31→20:21)
[2021-06-17] MEDS: ASPIRIN 81 MG CHEW TABLET PO SCH (08:31)
[2021-06-17] MEDS: GABAPENTIN 100 MG CAP PO SCH ×3 (08:31→20:21)
[2021-06-17] MEDS: DOCUSATE SODIUM 100MG CAPSULE PO SCH ×2 (08:31→20:21)
[2021-06-17] MEDS: HumaLOG INSULIN (NovoLOG) PER UNIT SC SCH ×4 (08:41→20:21)
[2021-06-17] MEDS: ACETAMINOPHEN TAB 650MG DOSE (2X325MG) PO PRN ×2 (08:42→22:00)
[2021-06-17] MEDS: VANCOMYCIN HCL 1,000 MG, VIAL MATE ADAPTER 1 EACH in NS 250 ML IV SCH ×2 (13:07→18:47)
[2021-06-17 14:00] VITALS: BP 124/75
--- NOTE | 2021-06-17 20:15 | IPNPDOC ---
Subjective Date Seen The patient was seen on 06/17/21. Subjective Chief Complaint/HPI No acute events overnight. Does not have any complaints this morning. His pain is controlled. No fever or chills. Complains of constipation. Objective Physical Examination General Exam: Positive: Alert, Cooperative, No Acute Distress Eye Exam: Positive: PERRLA, Conjunctiva & lids normal, EOMI; Negative: Sclera icteric ENT Exam: Positive: Atraumatic, Mucous membr. moist/pink, Pharynx Normal, Other ENT (Very hard of hearing) Neck Exam: Positive: Supple; Negative: JVD, thyromegaly Chest Exam: Positive: Clear to auscultation, Normal air movement Heart Exam: Positive: Rate Normal, Regular Rhythm, Normal S1, Normal S2; Negative: Murmurs, Rubs Abdomen Exam: Positive: Normal bowel sounds, Soft; Negative: Tenderness Extremity Exam: Negative: Clubbing, Cyanosis, Edema Skin Exam: Positive: Rash (few scattered at the buttocks ), Lesion (on the right first toe with macerated skin 1 open spot and inflammation extending to the dorsum and the plantar aspect of the toe), Other skin issue (right plantar heel ulcer 1 cm into 3 cm dry with clean base) Psych Exam: Positive: Memory Intact, Oriented x 3 Assessment /Plan Assessment 60-year-old male with past medical history of diabetes, hypertension, hyperlipidemia, schizophrenia, neuropathy 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 Right foot hallux and first metatarsal osteomyelitis and infection. s/p Right hallux and first ray amputation. Vancomycin and Zosyn. s/p OR on 06/13/21, cultures have been sent from the OR. Anaerobic cultures are negative. Aerobic cultures shows gram-positive cocci in chains, pairs, clusters. Blood cultures negative till date Schizophrenia continue home meds Diabetes with neuropathy FS AC and HS continue levemir and lispro Gabapentin. Hypertension continue Lisinopril HLD continue Statin Congenital hearing loss Extremely hard of hearing Plan/VTE VTE Prophylaxis Ordered?: Yes VS, I&O, 24H, Fishbone Vital Signs/I&O Vital Signs Date Time Temp Pulse Resp B/P (MAP) Pulse Ox O2 Delivery O2 Flow Rate FiO2 06/17/21 06:00 98.2 79 16 119/65 (83) 95 Room Air I&O- Last 24 Hours up to 6 AM 06/17/21 06:00 Intake Total 3375 ml Output Total 3525 ml Balance -150 ml Laboratory Data 24H LABS Laboratory Tests 2 06/16/21 12:06: Bedside Glucose (Misc Panel) 107 06/16/21 15:46: Vancomycin Level Trough 14.4 06/16/21 17:32: Bedside Glucose (Misc Panel) 259H 06/16/21 19:44: Bedside Glucose (Misc Panel) 168H 06/17/21 04:33: Immature Granulocyte % (Auto) 0.5, Neutrophils (%) (Auto) 71.0H, Lymphocytes (%) (Auto) 17.8L, Monocytes (%) (Auto) 6.8, Eosinophils (%) (Auto) 3.2H, Basophils (%) (Auto) 0.7, Neutrophils # (Auto) 7.5, Lymphocytes # (Auto) 1.9, Monocytes # (Auto) 0.7, Eosinophils # (Auto) 0.3, Basophils # (Auto) 0.1, Nucleated Red Blood Cells % (auto) 0.0, Anion Gap 4L, Glomerular Filtration Rate > 60.0, Calcium Level 8.6L, Vancomycin Level Trough 14.4 CBC/BMP Laboratory Tests 06/17/21 04:33 Microbiology Microbiology 06/14/21 Gram Stain - Final, Resulted 06/14/21 Wound Culture, Resulted Pending 06/14/21 Anaerobic Culture - Final, Resulted 06/13/21 Blood Culture - Preliminary, Resulted No Growth after 72 hours. All specime... Daysi Pollard MD Jun 17, 2021 08:05
[2021-06-17 22:00] VITALS: BP 126/73
[2021-06-17] MEDS ORDERED: RAMELTEON 8 MG TAB (ROZEREM) PO PRN (22:45)
[2021-06-18] MEDS: VANCOMYCIN HCL 1,000 MG, VIAL MATE ADAPTER 1 EACH in NS 250 ML IV SCH ×2 (01:10→06:29)
[2021-06-18] MEDS: PIPERACILLIN/TAZOBACTAM SOD 3.375 GM in D5W MINI-BAG PLUS 50 ML IV SCH ×3 (02:36→14:33)
[2021-06-18 05:34] LABS: BASO # 0.1 10^3/uL (0.0-0.2); BASO % 0.8 % (0.0-1.0); EOS # 0.4 10^3/uL (0.0-0.5); EOS % 4.5 % (0.0-3.0); HEMATOCRIT 35.3 % (42.0-52.0); HEMOGLOBIN 11.5 g/dl (13.5-17.5); LYMPH # 2.2 10^3/uL (1.5-5.0); LYMPH % 23.9 % (24.0-44.0); MEAN CORPUSCULAR HEMOGLOBIN 27.2 pg (27.0-33.0); MEAN CORPUSCULAR HGB CONC 32.6 g/dl (32.0-36.5); MEAN CORPUSCULAR VOLUME 83.5 fl (80.0-96.0); MONO # 0.6 10^3/uL (0.0-0.8); MONO % 6.9 % (2.0-8.0); NEUTROPHILS # 5.8 10^3/uL (1.5-8.5); NEUTROPHILS % 63.6 % (36.0-66.0); PLATELET COUNT, AUTOMATED 294 10^3/uL (150-450); RED BLOOD COUNT 4.23 10^6/uL (4.30-6.10); WHITE BLOOD COUNT 9.1 10^3/uL (4.0-10.0)
[2021-06-18 05:54] LABS: BLOOD UREA NITROGEN 13 MG/DL (7-18); CALCIUM LEVEL 8.9 MG/DL (8.8-10.2); CARBON DIOXIDE LEVEL 30 MEQ/L (21-32); CHLORIDE LEVEL 106 MEQ/L (98-107); CREATININE FOR GFR 0.87 MG/DL (0.70-1.30); GLOMERULAR FILTRATION RATE > 60.0 (>49); GLUCOSE, FASTING 96 MG/DL (70-100); POTASSIUM SERUM 3.9 MEQ/L (3.5-5.1); SODIUM LEVEL 141 MEQ/L (136-145)
[2021-06-18 06:00] VITALS: BP 131/70
[2021-06-18] MEDS: HumaLOG INSULIN (NovoLOG) PER UNIT SC SCH ×4 (07:30→20:28)
[2021-06-18] MEDS: GABAPENTIN 100 MG CAP PO SCH ×3 (08:45→20:37)
[2021-06-18] MEDS: ATORVASTATIN 20 MG TAB PO SCH (08:45)
[2021-06-18] MEDS: NICOTINE 21MG/24HR 1 EA TRANSDERMAL TD SCH (08:45)
[2021-06-18] MEDS: LEVEMIR (INSULIN DETEMIR) 1 UNITS/0.01ML SC SCH ×2 (08:45→20:38)
[2021-06-18] MEDS: ASPIRIN 81 MG CHEW TABLET PO SCH (08:45)
[2021-06-18] MEDS: DOCUSATE SODIUM 100MG CAPSULE PO SCH ×2 (08:45→20:37)
[2021-06-18] MEDS: MIRALAX *UNIT DOSE* 17GM PACKET PO SCH (08:45)
--- NOTE | 2021-06-18 11:59 | IPNPDOC ---
Subjective Date Seen The patient was seen on 06/18/21. Subjective Chief Complaint/HPI No issues overnight. Complains of some back pain. No pain in the foot. No fever or chills Objective Physical Examination General Exam: Positive: Alert, Cooperative, No Acute Distress Eye Exam: Positive: PERRLA, Conjunctiva & lids normal, EOMI; Negative: Sclera icteric ENT Exam: Positive: Atraumatic, Mucous membr. moist/pink, Pharynx Normal, Other ENT (Very hard of hearing) Neck Exam: Positive: Supple; Negative: JVD, thyromegaly Chest Exam: Positive: Clear to auscultation, Normal air movement Heart Exam: Positive: Rate Normal, Regular Rhythm, Normal S1, Normal S2; Negative: Murmurs, Rubs Abdomen Exam: Positive: Normal bowel sounds, Soft; Negative: Tenderness Extremity Exam: Negative: Clubbing, Cyanosis, Edema Skin Exam: Positive: Rash (few scattered at the buttocks ), Lesion (on the right first toe with macerated skin 1 open spot and inflammation extending to the dorsum and the plantar aspect of the toe), Other skin issue (right plantar heel ulcer 1 cm into 3 cm dry with clean base) Psych Exam: Positive: Memory Intact, Oriented x 3 Assessment /Plan Assessment 60-year-old male with past medical history of diabetes, hypertension, hyperlip idemia, schizophrenia, neuropathy 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 Right foot hallux and first metatarsal osteomyelitis and infection. s/p Right hallux and first ray amputation. Vancomycin and Zosyn. s/p OR on 06/13/21, cultures have been sent from the OR. Anaerobic cultures are negative. Aerobic cultures shows gram-positive cocci in chains, pairs, clusters. Blood cultures negative till date Wound culture polymicrobial karen including MRSA, Proteus, strep group G, Morganella Anaerobic culture negative Schizophrenia continue home meds Diabetes with neuropathy FS AC and HS continue levemir and lispro Gabapentin. Hypertension continue Lisinopril HLD continue Statin Congenital hearing loss Extremely hard of hearing Plan/VTE VTE Prophylaxis Ordered?: Yes VS, I&O, 24H, Fishbone Vital Signs/I&O Vital Signs Date Time Temp Pulse Resp B/P (MAP) Pulse Ox O2 Delivery O2 Flow Rate FiO2 06/18/21 08:46 121/78 06/18/21 06:00 97.4 70 17 98 Room Air I&O- Last 24 Hours up to 6 AM 06/18/21 06:00 Intake Total 2380 ml Output Total 3725 ml Balance -1345 ml Laboratory Data 24H LABS Laboratory Tests 2 06/17/21 16:55: Bedside Glucose (Misc Panel) 92 06/17/21 19:59: Bedside Glucose (Misc Panel) 205H 06/18/21 05:09: Immature Granulocyte % (Auto) 0.3, Neutrophils (%) (Auto) 63.6, Lymphocytes (%) (Auto) 23.9L, Monocytes (%) (Auto) 6.9, Eosinophils (%) (Auto) 4.5H, Basophils (%) (Auto) 0.8, Neutrophils # (Auto) 5.8, Lymphocytes # (Auto) 2.2, Monocytes # (Auto) 0.6, Eosinophils # (Auto) 0.4, Basophils # (Auto) 0.1, Nucleated Red Blood Cells % (auto) 0.0, Anion Gap 5L, Glomerular Filtration Rate > 60.0, Calcium Level 8.9 CBC/BMP Laboratory Tests 06/18/21 05:09 Microbiology Microbiology 06/14/21 Gram Stain - Final, Complete 06/14/21 Wound Culture - Final, Complete Morganella Morganii Ssp Rich Streptococcus Group G Staph.aureus Methicillin Resis Proteus Vulgaris Group 06/14/21 Anaerobic Culture - Final, Complete 06/13/21 Blood Culture - Preliminary, Resulted No Growth after 72 hours. All specime... Daysi Pollard MD Jun 18, 2021 11:58
[2021-06-18 14:00] VITALS: BP 125/68
[2021-06-18] MEDS ORDERED: VANCOMYCIN HCL 1,000 MG, VIAL MATE ADAPTER 1 EACH in NS 250 ML IV SCH (16:00)
--- NOTE | 2021-06-18 18:38 | CR ---
CONSULTATION DATE: 06/18/2021 Asked to consult by Dr. Pollard for home antibiotic in a patient with right big toe osteomyelitis status post ray amputation. HISTORY OF PRESENT ILLNESS: Mr. Yuan is a 60-year-old gentleman with a history of insulin-dependent diabetes with a chronic diabetic foot ulcer on the right foot and right foot osteomyelitis. The patient was seen by Dr. Skaggs in his office who noted that he was having increasing swelling, redness, and purulence from the foot ulcer and therefore admitted him to the hospital for further debridement and surgery. He underwent a ray amputation. He denied having any fever or chills. Patient has neuropathy and therefore had no pain. On admission, his white count was 15.2, currently 9.1. He denies any nausea, vomiting, diarrhea, or abdominal pain. PAST MEDICAL HISTORY: Significant for hypertension, diabetes insulin-dependent with neuropathy, hyperlipidemia, multiple previous episodes of diabetic foot ulcer, calcaneus osteomyelitis of the right foot, tinea corporis. ALLERGIES: No known drug allergies. SURGICAL HISTORY: Mastoidectomy, right foot debridement for acute osteomyelitis, and February 2021 1st metatarsophalangeal (MTP) joint incision and drainage (I and D) and now a ray amputation. FAMILY HISTORY: Significant for diabetes. SOCIAL HISTORY: He has been on disability all his life, he never worked. He lives in [place], just recently moved, he lives in an apartment with a roommate. He smokes, but denies any alcohol or drug use. REVIEW OF SYSTEMS: He has no fever, chills, or night sweats, no nausea, vomiting, or diarrhea, no rashes, no cough or shortness of breath. He has neuropathy in both feet, denies any pain. He states he will be trying to quit smoking. LABORATORIES: White count 9.1, hemoglobin 11.5, hematocrit 35.3, platelets 294, 63% neutrophils, 24% lymphocytes, 7% monocytes, sodium 141, potassium 3.9, chloride 106, bicarbonate 30, BUN 13, creatinine 0.87, glucose 96, calcium 8.9. Wound culture was positive for methicillin-resistant Staphylococcus aureus (MRSA), Streptococcus, Proteus vulgaris and Morganella morganii. Blood cultures, two, was negative. IMAGING: MRI had been done on 02/18/2021, showed osteomyelitis with septic arthritis of the Hallux metatarsophalangeal joint with periarticular osteomyelitis. No repeat MRI done this hospitalization or x-ray. Extremity arterial Doppler on 02/27/2021 shows stenosis areas in the distal anterior tibial artery, right profunda. PHYSICAL EXAMINATION: He is a pleasant, very hard of hearing gentleman in no acute distress. Temperature is 98.2, pulse 71, respirations 18, blood pressure 125/68, oxygen saturation 98% on room air. Heart: Normal S1, S2, no murmurs, rubs, or gallops. Lungs are clear, no wheezes, rales, or rhonchi. Abdomen: Soft, nontender, no hepatosplenomegaly. Extremities: Right lower extremity with no clubbing, cyanosis, or edema. Right foot with a ray amputation with sutures in place and no surrounding cellulitis, erythema, no tenderness. Impression :Patient had an amputation of 1st metatarsal of the toe and head of the 1st metatarsal with marked improvement of symptoms. There is no evidence of cellulitis, white count, or fever. Patient does not need any further IV antibiotics. PLAN Will continue oral antibiotics for a total of 5 days with cefdinir 300 mg by mouth twice a day to cover gram-negatives and Streptococcus with doxycycline 100 mg by mouth twice a day for 5 days for methicillin-resistant Staphylococcus aureus (MRSA). Patient could be discharged home from infectious disease standpoint. Does not need infectious disease followup as an outpatient. He can followup with Dr. Skaggs. SOFY
[2021-06-18] MEDS: CEFDINIR 300 MG CAP (OMNICEF) PO SCH (20:37)
[2021-06-18] MEDS: DOXYCYCLINE HYCLATE 100MG TABLET PO SCH (20:38)
[2021-06-18 22:00] VITALS: BP 124/78
[2021-06-19] MEDS: ACETAMINOPHEN TAB 650MG DOSE (2X325MG) PO PRN (04:33)
[2021-06-19 06:00] VITALS: BP 123/77
[2021-06-19 06:09] LABS: BASO # 0.1 10^3/uL (0.0-0.2); BASO % 0.8 % (0.0-1.0); EOS # 0.3 10^3/uL (0.0-0.5); EOS % 3.1 % (0.0-3.0); HEMOGLOBIN 11.7 g/dl (13.5-17.5); LYMPH # 2.4 10^3/uL (1.5-5.0); LYMPH % 22.9 % (24.0-44.0); MEAN CORPUSCULAR HGB CONC 32.5 g/dl (32.0-36.5); MEAN CORPUSCULAR VOLUME 83.1 fl (80.0-96.0); MONO # 0.6 10^3/uL (0.0-0.8); MONO % 5.3 % (2.0-8.0); NEUTROPHILS # 7.2 10^3/uL (1.5-8.5); NEUTROPHILS % 67.6 % (36.0-66.0); PLATELET COUNT, AUTOMATED 311 10^3/uL (150-450); RED BLOOD COUNT 4.33 10^6/uL (4.30-6.10); WHITE BLOOD COUNT 10.6 10^3/uL (4.0-10.0)
[2021-06-19 06:32] LABS: BLOOD UREA NITROGEN 15 MG/DL (7-18); CALCIUM LEVEL 8.9 MG/DL (8.8-10.2); CARBON DIOXIDE LEVEL 29 MEQ/L (21-32); CHLORIDE LEVEL 104 MEQ/L (98-107); CREATININE FOR GFR 0.85 MG/DL (0.70-1.30); GLOMERULAR FILTRATION RATE > 60.0 (>49); GLUCOSE, FASTING 97 MG/DL (70-100); POTASSIUM SERUM 3.9 MEQ/L (3.5-5.1); SODIUM LEVEL 138 MEQ/L (136-145)
[2021-06-19] MEDS: HumaLOG INSULIN (NovoLOG) PER UNIT SC SCH ×4 (07:30→21:00)
[2021-06-19] MEDS: CEFDINIR 300 MG CAP (OMNICEF) PO SCH ×2 (09:44→20:40)
[2021-06-19] MEDS: DOCUSATE SODIUM 100MG CAPSULE PO SCH ×2 (09:44→20:40)
[2021-06-19] MEDS: DOXYCYCLINE HYCLATE 100MG TABLET PO SCH ×2 (09:45→20:40)
[2021-06-19] MEDS: ASPIRIN 81 MG CHEW TABLET PO SCH (09:45)
[2021-06-19] MEDS: ATORVASTATIN 20 MG TAB PO SCH (09:45)
[2021-06-19] MEDS: GABAPENTIN 100 MG CAP PO SCH ×3 (09:47→20:40)
[2021-06-19] MEDS: MIRALAX *UNIT DOSE* 17GM PACKET PO SCH (09:47)
[2021-06-19] MEDS: LEVEMIR (INSULIN DETEMIR) 1 UNITS/0.01ML SC SCH ×2 (09:48→20:40)
[2021-06-19] MEDS: NICOTINE 21MG/24HR 1 EA TRANSDERMAL TD SCH (09:48)
--- NOTE | 2021-06-19 11:09 | IPNPDOC ---
Text Note Date of Service The patient was seen on 06/19/21. NOTE Subjective: Patient seen and examined at bedside. No acute overnight events reported. Patient voices no new medical complaints this morning. 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 #Right foot hallux and first metatarsal osteomyelitis and infection. - s/p Right hallux and first ray amputation. - initally Vancomycin and Zosyn - transitioned to cefdinir and doxy x 5 days (started 06/18/21) - ID c/s appreciated - s/p OR on 06/13/21, cultures have been sent from the OR. Anaerobic cultures are negative. Aerobic cultures shows gram-positive cocci in chains, pairs, clusters. - Blood cultures negative till date - Wound culture polymicrobial karen including MRSA, Proteus, strep group G, Morganella - Anaerobic culture negative #Schizophrenia continue home meds #Diabetes with neuropathy FS AC and HS continue levemir and lispro Gabapentin. #Hypertension continue Lisinopril #HLD continue Statin #Congenital hearing loss Extremely hard of hearing Dispo: pending PT eval and clearance VS,Fishbone, I+O VS, Fishbone, I+O Laboratory Tests 06/19/21 05:27 Vital Signs Date Time Temp Pulse Resp B/P (MAP) Pulse Ox O2 Delivery O2 Flow Rate FiO2 06/19/21 09:47 123/77 06/19/21 06:00 97.6 81 17 96 Room Air I&O- Last 24 Hours up to 6 AM 06/19/21 06:00 Intake Total 1890 ml Output Total 2475 ml Balance -585 ml WALLY DASH MD Jun 19, 2021 11:09
[2021-06-19 13:55] VITALS: BP 120/59
[2021-06-19] MEDS ORDERED: MOM 30ML SUSPENSION UDC PO PRN (20:50)
[2021-06-19 22:00] VITALS: BP 117/61
[2021-06-20 06:00] VITALS: BP 119/64
[2021-06-20 06:18] LABS: BASO # 0.1 10^3/uL (0.0-0.2); BASO % 0.8 % (0.0-1.0); EOS # 0.4 10^3/uL (0.0-0.5); EOS % 3.7 % (0.0-3.0); HEMATOCRIT 38.3 % (42.0-52.0); HEMOGLOBIN 12.5 g/dl (13.5-17.5); LYMPH % 26.5 % (24.0-44.0); MEAN CORPUSCULAR HEMOGLOBIN 27.3 pg (27.0-33.0); MEAN CORPUSCULAR HGB CONC 32.6 g/dl (32.0-36.5); MEAN CORPUSCULAR VOLUME 83.6 fl (80.0-96.0); MONO # 0.8 10^3/uL (0.0-0.8); NEUTROPHILS # 6.9 10^3/uL (1.5-8.5); NEUTROPHILS % 61.6 % (36.0-66.0); PLATELET COUNT, AUTOMATED 285 10^3/uL (150-450); RED BLOOD COUNT 4.58 10^6/uL (4.30-6.10); WHITE BLOOD COUNT 11.2 10^3/uL (4.0-10.0)
[2021-06-20 06:26] LABS: BLOOD UREA NITROGEN 20 MG/DL (7-18); CALCIUM LEVEL 9.2 MG/DL (8.8-10.2); CARBON DIOXIDE LEVEL 29 MEQ/L (21-32); CHLORIDE LEVEL 103 MEQ/L (98-107); CREATININE FOR GFR 0.86 MG/DL (0.70-1.30); GLOMERULAR FILTRATION RATE > 60.0 (>49); GLUCOSE, FASTING 134 MG/DL (70-100); POTASSIUM SERUM 4.3 MEQ/L (3.5-5.1); SODIUM LEVEL 140 MEQ/L (136-145)
[2021-06-20] MEDS: MIRALAX *UNIT DOSE* 17GM PACKET PO SCH (08:10)
[2021-06-20] MEDS: HumaLOG INSULIN (NovoLOG) PER UNIT SC SCH ×2 (08:11→12:00)
[2021-06-20] MEDS: LEVEMIR (INSULIN DETEMIR) 1 UNITS/0.01ML SC SCH (08:11)
[2021-06-20] MEDS: CEFDINIR 300 MG CAP (OMNICEF) PO SCH (08:12)
[2021-06-20] MEDS: NICOTINE 21MG/24HR 1 EA TRANSDERMAL TD SCH (08:12)
[2021-06-20] MEDS: ASPIRIN 81 MG CHEW TABLET PO SCH (08:12)
[2021-06-20] MEDS: GABAPENTIN 100 MG CAP PO SCH (08:12)
[2021-06-20] MEDS: DOXYCYCLINE HYCLATE 100MG TABLET PO SCH (08:12)
[2021-06-20] MEDS: DOCUSATE SODIUM 100MG CAPSULE PO SCH (08:12)
[2021-06-20 08:14] VITALS: BP 119/65
[2021-06-20] MEDS: ATORVASTATIN 20 MG TAB PO SCH (08:14)
[2021-06-20] MEDS ORDERED: DOXY100T PO (11:24)
[2021-06-20] MEDS ORDERED: CEFD300CAP PO (11:24)
[2021-06-20] MEDS ORDERED: NICO21PAT TD (11:24)
[2021-06-20 13:40] VITALS: BP 113/64
--- NOTE | 2021-07-10 18:31 | DS.PDOC ---
Discharge Summary General Date of Admission Jun 13, 2021 at 17:17 Date of Discharge 06/20/21 Discharge Summary PROCEDURES PERFORMED DURING STAY: Right hallux and first ray amputation DISCHARGE DIAGNOSES: #Right foot hallux and first metatarsal osteomyelitis and infection. #Schizophrenia #Diabetes with neuropathy #Hypertension #HLD #Congenital hearing loss COMPLICATIONS/CHIEF COMPLAINT: Osteomyeolitis. 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 Patient complained of increased redness swelling of his right first toe extending up the top of the foot as well as in the plantar aspect of the foot at the base of the first hallux. Complained of increased discharge and foul smell. Patient does not have any pain sensation. He does feel some pressure and paresthesias in that area. He has bad neuropathy. Admitted for right foot osteomyelitis. #Right foot hallux and first metatarsal osteomyelitis and infection. - s/p Right hallux and first ray amputation. - initally Vancomycin and Zosyn - transitioned to cefdinir and doxy x 5 days (started 06/18/21) - ID c/s appreciated - s/p OR on 06/13/21, cultures have been sent from the OR. Anaerobic cultures are negative. Aerobic cultures shows gram-positive cocci in chains, pairs, clusters. - Blood cultures negative till date - Wound culture polymicrobial karen including MRSA, Proteus, strep group G, Morganella - Anaerobic culture negative #Schizophrenia continue home meds #Diabetes with neuropathy FS AC and HS using levemir and lispro as inpatient Gabapentin. #Hypertension continue Lisinopril #HLD continue Statin #Congenital hearing loss Extremely hard of hearing DISCHARGE MEDICATIONS: Please see below. ALLERGIES: Please see below. PHYSICAL EXAMINATION ON DISCHARGE: Vital Signs: reviewed and within normal limits General: NAD, lying comfortably in bed HEENT: NC/AT, EOMI, very hard of hearing, poor dentition Neck: supple, no masses Chest: lungs CTA B/L Heart: +S1S2, RRR Abd: soft, NT, ND, +BS Ext: no edema, right foot bandages in place Skin: no rashes MSK: full ROM at large joints Neuro: no gross focal deficits Psych: AAOx3 LABORATORY DATA: Please see below. ACTIVITY: [As tolerated]. DISPOSITION: 62 D/T Rehab Facility. DISCHARGE INSTRUCTIONS: Follow up with PCP in 3-5 days on discharge Further direction as per podiatry, ID and ARU. DISCHARGE CONDITION: [Stable]. TIME SPENT ON DISCHARGE: 35 minutes. Discharge Medications Scheduled Aspirin (Aspirin) 81 Mg Tab.chew, 81 MG PO DAILY Atorvastatin Calcium (Atorvastatin Calcium) 20 Mg Tablet, 20 MG PO DAILY Gabapentin (Gabapentin) 100 Mg Capsule, 100 MG PO TID Lisinopril (Lisinopril) 10 Mg Tablet, 10 MG PO DAILY Metformin HCl (Metformin HCl ER) 500 Mg Tab.er.24h, 500 MG PO DAILY Nicotine (Nicotine Patch) 21 Mg Patch.td24, 1 PATCH TD DAILY Allergies Coded Allergies: No Known Allergies (Unverified , 06/06/20) WALLY DASH MD Jul 10, 2021 18:31
== END 2021-06-20 13:55 | DRG 617 ==
LOC: EEVIPCON 17:17 → M MSPAV 17:17
PROVIDERS: ADMIT Family Medicine; ATTEND Internal Medicine
PROC: 0Y6P0Z0 Detachment at Right 1st Toe, Complete, Open Approach (ICD-10-PCS; principal; 2021-06-14 16:00)
DX: E11.69 Type 2 diabetes mellitus with other specified complication (principal); M86.171 Other acute osteomyelitis, right ankle and foot; I10 Essential (primary) hypertension; E11.40 Type 2 diabetes mellitus with diabetic neuropathy, unspecified; F20.9 Schizophrenia, unspecified; H90.5 Unspecified sensorineural hearing loss; E78.5 Hyperlipidemia, unspecified; Z79.82 Long term (current) use of aspirin; Z79.899 Other long term (current) drug therapy

== ENCOUNTER 2021-06-20 11:44 | Inpatient (IN) | payer MEDICARE, MEDICAID ==
[~2021-06-20] VITALS: Ht 182.9 cm; Wt 127.6 kg
[~2021-06-20 11:44] MED LIST changes: -DOXY-443 PO; +DOXY100T PO; +DOXY1CAP62 PO; +NICO21PAT TD
[2021-06-20] MEDS ORDERED: DEXTROSE 50% 50 ML SYRINGE IV PRN (12:45)
[2021-06-20] MEDS ORDERED: GLUCAGON INJ 1MG VIAL SC PRN (12:45)
[2021-06-20] MEDS ORDERED: MIRALAX *UNIT DOSE* 17GM PACKET PO PRN (12:45)
[2021-06-20] MEDS ORDERED: oxyCODONE 5MG TAB PO PRN (12:45)
[2021-06-20] MEDS ORDERED: GLUCOSE 4GM CHEW TABLET PO PRN (12:45)
[2021-06-20] MEDS ORDERED: FLEET ENEMA PR PRN (12:45)
[2021-06-20 14:00] VITALS: BP 129/73
[2021-06-20] MEDS ORDERED: HOME MED LIST COMPLETE! XX SCH (14:15)
[2021-06-20] MEDS: REMEDY PHYTOPLEX Z-GUARD PASTE 113GM TUBE (FROM STOREROOM PRODUCT) TOP SCH ×2 (16:00→20:45)
[2021-06-20] MEDS: ACETAMINOPHEN 500 MG TAB PO SCH ×2 (16:07→20:44)
[2021-06-20] MEDS: PANTOPRAZOLE 40MG TAB (PROTONIX) PO SCH (16:07)
[2021-06-20] MEDS: GABAPENTIN 100 MG CAP PO SCH ×2 (16:07→20:44)
[2021-06-20] MEDS: LACTOBACILLUS ACIDOPHILUS CAP (BACID) PO SCH ×2 (17:27→20:44)
[2021-06-20] MEDS: HumaLOG INSULIN (NovoLOG) PER UNIT SC SCH ×2 (17:27→20:35)
[2021-06-20 20:00] VITALS: BP 117/56
[2021-06-20] MEDS: HEPARIN SOD (PORCINE) 5000UNITS/ML 1ML VIAL/SYRINGE SC SCH (20:42)
[2021-06-20] MEDS: SENNA 8.6 MG TAB (SENOKOT) PO SCH (20:42)
[2021-06-20] MEDS: DOXYCYCLINE HYCLATE 100MG TABLET PO SCH (20:44)
[2021-06-20] MEDS: CEFDINIR 300 MG CAP (OMNICEF) PO SCH (20:44)
[2021-06-20] MEDS: DOCUSATE SODIUM 100MG CAPSULE PO SCH (20:44)
[2021-06-20] MEDS: LEVEMIR (INSULIN DETEMIR) 1 UNITS/0.01ML SC SCH (20:45)
[2021-06-21 06:00] VITALS: BP 135/81
[2021-06-21 07:00] LABS: BASO # 0.1 10^3/uL (0.0-0.2); BASO % 0.8 % (0.0-1.0); EOS # 0.4 10^3/uL (0.0-0.5); EOS % 4.4 % (0.0-3.0); HEMATOCRIT 38.7 % (42.0-52.0); HEMOGLOBIN 12.5 g/dl (13.5-17.5); LYMPH # 3.1 10^3/uL (1.5-5.0); LYMPH % 35.3 % (24.0-44.0); MEAN CORPUSCULAR HEMOGLOBIN 27.4 pg (27.0-33.0); MEAN CORPUSCULAR HGB CONC 32.3 g/dl (32.0-36.5); MEAN CORPUSCULAR VOLUME 84.7 fl (80.0-96.0); MONO # 0.6 10^3/uL (0.0-0.8); MONO % 7.3 % (2.0-8.0); NEUTROPHILS # 4.6 10^3/uL (1.5-8.5); NEUTROPHILS % 51.7 % (36.0-66.0); PLATELET COUNT, AUTOMATED 266 10^3/uL (150-450); RED BLOOD COUNT 4.57 10^6/uL (4.30-6.10); WHITE BLOOD COUNT 8.8 10^3/uL (4.0-10.0)
[2021-06-21 07:27] LABS: ALBUMIN 2.9 GM/DL (3.2-5.2); ALT/SGPT 19 U/L (12-78); BILIRUBIN,TOTAL 0.3 MG/DL (0.2-1.0); BLOOD UREA NITROGEN 19 MG/DL (7-18); CALCIUM LEVEL 8.9 MG/DL (8.8-10.2); CARBON DIOXIDE LEVEL 29 MEQ/L (21-32); CHLORIDE LEVEL 104 MEQ/L (98-107); CREATININE FOR GFR 1.02 MG/DL (0.70-1.30); GLOMERULAR FILTRATION RATE > 60.0 (>49); GLUCOSE, FASTING 92 MG/DL (70-100); POTASSIUM SERUM 4.2 MEQ/L (3.5-5.1); SODIUM LEVEL 138 MEQ/L (136-145); TOTAL PROTEIN 8.1 GM/DL (6.4-8.2)
[2021-06-21] MEDS: HumaLOG INSULIN (NovoLOG) PER UNIT SC SCH ×4 (07:30→21:00)
[2021-06-21] MEDS: REMEDY PHYTOPLEX Z-GUARD PASTE 113GM TUBE (FROM STOREROOM PRODUCT) TOP SCH ×3 (09:00→21:00)
[2021-06-21] MEDS: LEVEMIR (INSULIN DETEMIR) 1 UNITS/0.01ML SC SCH ×2 (09:00→21:13)
[2021-06-21] MEDS: ATORVASTATIN 20 MG TAB PO SCH (09:17)
[2021-06-21] MEDS: PANTOPRAZOLE 40MG TAB (PROTONIX) PO SCH (09:17)
[2021-06-21] MEDS: GABAPENTIN 100 MG CAP PO SCH ×3 (09:17→21:12)
[2021-06-21] MEDS: DOXYCYCLINE HYCLATE 100MG TABLET PO SCH ×2 (09:17→21:12)
[2021-06-21] MEDS: LACTOBACILLUS ACIDOPHILUS CAP (BACID) PO SCH ×4 (09:17→21:13)
[2021-06-21] MEDS: ASPIRIN 81 MG CHEW TABLET PO SCH (09:17)
[2021-06-21] MEDS: DOCUSATE SODIUM 100MG CAPSULE PO SCH ×2 (09:17→21:12)
[2021-06-21] MEDS: CEFDINIR 300 MG CAP (OMNICEF) PO SCH ×2 (09:17→21:13)
[2021-06-21] MEDS: NICOTINE 21MG/24HR 1 EA TRANSDERMAL TD SCH (09:18)
[2021-06-21] MEDS: HEPARIN SOD (PORCINE) 5000UNITS/ML 1ML VIAL/SYRINGE SC SCH ×2 (09:18→21:14)
[2021-06-21] MEDS: ACETAMINOPHEN 500 MG TAB PO SCH ×3 (09:20→21:13)
--- NOTE | 2021-06-21 12:29 | HPEPDOC ---
Equipment Maintenance Engineer Note DATE OF ADMISSION: 06-20-21 DATE OF SERVICE: 06-21-21 TIME OF ADMISSION: Please refer to physician's admission order. SOURCE OF ADMISSION INFORMATION: [facility] record and patient CHIEF COMPLAINT: s/p right first ray amputation HISTORY OF PRESENT ILLNESS: 60M pmh bipolar, DM2 with peripheral polyneuropathy, HTN, congenital hearing loss, schizophrenia who presented to [facility] ED on 06-13-21 after being seen by Dr. Skaggs for a right first to wound which was foul smelling and exudative. He was diagnosed with osteomyelitis with wound culture growing MRSA, Proteus Vulgaris, Strep Group G, and Morganella Morganii. He was started on IV Vancomycin and ZOs yn, underwent a 1st ray and hallux amputation on the right performed by Dr. Skaggs on 06-16-21. He had leukocytosis, difficulty with mobility as his weight bearing was restricted to his RLE, and new impairments in ADLs, deemed medically appropriate for discharge to [facility] on 06-20-21. REVIEW OF SYSTEMS: The following is a completed review of systems and has been reviewed. Review of systems otherwise unremarkable. PAIN: Patient self reports no pain EYES: No recent vision changes EARS, NOSE, & THROAT: No throat pain, or dysphagia, or rhinorrhea, +[place] CARDIOVASCULAR: Denies chest pain or palpitations PULMONARY: Denies shortness of breath GASTROINTESTINAL: Denies constipation/diarrhea GENITOURINARY: denies dysuria MUSCULOSKELETAL: generalized weakness NEUROLOGICAL:+ peripheral polyneuropathy HEMATOLOGICAL: +anemia SKIN: right foot surgery PSYCHIATRIC: Unremarkable All other review of systems found to be negative. PAST MEDICAL HISTORY: as per HPI PAST SURGICAL HISTORY: Mastoidectomy, right foot surgical debridement 2019, 1st MTP joint I&D ALLERGIES: Please see below. MEDICATIONS: Please see below. FAMILY HISTORY: Diabetes SOCIAL HISTORY: +smoker, no etoh/illicit drugs DIET: consistent carb, low sodium PHYSICAL EXAMINATION: VITAL SIGNS: Please see below. GENERAL: Pleasant and cooperative. No acute distress. HEENT: PERRL. Extraocular movements intact. Clear conjunctiva, CARDIOVASCULAR: Regular rate and rhythm. No murmurs, rubs, or gallops LUNGS: Clear to auscultation bilaterally. No wheezes. No rhonchi ABDOMEN: Soft, nontender, nondistended. Positive bowel sounds. Normal active bowel sounds NEUROLOGICAL: Alert and oriented times three. Cranial nerves II through XII grossly intact. Sensation decreased to light touch in stocking pattern EXTREMITIES: 5\5 strength bilateral upper extremities. 5\5 strength right hip flexor, knee extension, ankle DF. 5/5 strength in left lower extremity. SKIN: right foot with wound wrapped, exposed periwound appearing c/d/i, no induration or erythema LABORATORY DATA: Please see below. IMAGING: Imaging documentation personally reviewed by record FUNCTIONAL STATUS: Premorbid: Independent with all activities of daily life as well as mobility On Admission: Min-Mod assist for bed mobility, functional transfers, ambulation, dressing GOALS: Mod-I for bed mobility, functional transfers, ambulation, dressing, toileting from wheelchair level ASSESSMENT:60 year-old M with past medical history of diabetes with peripheral polyneuropathy who presents status post firts ray amputation due to osteomyelitis PLAN: 1.Rehab- PT/OT advance mobility and ADLs, strengthen/stretch/maintain ROM all 4 limbs 2. Neuro- peripheral polyneuropathy due to longstanding DM with poor proprioception and sensation contributing to overall weakness 3. Infectious Disease- s/p right hallux and first ray amputation on the right due to osteomyelitis cont cefdnir and doxycylcine, wound + for MRSA -monitor ESR/CRP -given concern for poor wound healing patient to be primarily NWB to RLE, ok for PWB for stairs to preserve his foot -f/u Dr. Skaggs on d/c -cont wound care management 4. CArdiac- hx of HTn cont BP meds -HLD cont statin -on ASA for cardioprotection 5. Resp- monitor for infection, patient denies cough, daily smoker, cont nicotine patch 6. Endo- hx of DM with peripheral polyneuropathy- cont LEvemir and ISS 7. Pain- Gabapentin, oxycodone, and tylenol 8. DVT ppx- heparin 9. GI ppx- protonix 10. dispo-TBD POST ADMISSION PHYSICIAN EVALUATION: Medical and functional status: Description of medical status, medical assessment : As above. Rehabilitation diagnosis and current and prior cold morbid medical conditions as above. Risk of complications and plans to mitigate them as above. Description of functional status current status is as above. Prior status as above. Status compared to preadmission: There are no clinically significant differences between the patient's current status and the information described on the preadmission screening document. Treatment plan anticipated: Treatment plan is as described above. Required disciplines including physical therapy, occupational therapy, others as noted above. Intensity of services: 3 hours a day, 6 days a week. Special considerations: There are no specific special or safety considerations that would likely preclude immediate implementation of an intensive rehabili tation program or subsequently influence the plan of care. ATTESTATION: Considering all the information above, it is my best judgment that this patient requires intensive rehabilitation therapy as described above and an inpatient hospital environment due to the complexity of nursing, medical, and r ehabilitation needs required by the patient. Furthermore, this patient can reasonably be expected to participate in an benefit from an inpatient rehabilitation stay with an interdisciplinary team approach to the delivery of rehabilitation care under the direction and supervision of rehabilitation ph ysician. PROGNOSIS: good ESTIMATED LENGTH OF STAY: 7-10 days. PROJECTED DISCHARGE DESTINATION: Home with family support and any durable medical equipment required to increase functional safety and mobility. TIME SPENT COUNSELING AND COORDINATING INITIAL CARE: Greater than 70 minutes. Vital Signs Vital Sign - Last 24 Hours 06/20/21 06/20/21 06/21/21 06/21/21 14:00 20:00 06:00 09:22 Temp 97.6 97.9 97.2 Pulse 82 74 74 Resp 20 21 19 B/P (MAP) 129/73 (91) 117/56 (76) 135/81 (99) 148/70 Pulse Ox 98 96 96 O2 Delivery Room Air Room Air Room Air Laboratory Data CBC/BMP Laboratory Tests 06/21/21 06:39 Labs 24H Laboratory Tests 2 06/20/21 16:29: Bedside Glucose (Misc Panel) 124H 06/20/21 20:18: Bedside Glucose (Misc Panel) 164H 06/21/21 06:39: Immature Granulocyte % (Auto) 0.5, Neutrophils (%) (Auto) 51.7, Lymphocytes (%) (Auto) 35.3, Monocytes (%) (Auto) 7.3, Eosinophils (%) (Auto) 4.4H, Basophils (%) (Auto) 0.8, Neutrophils # (Auto) 4.6, Lymphocytes # (Auto) 3.1, Monocytes # (Auto) 0.6, Eosinophils # (Auto) 0.4, Basophils # (Auto) 0.1, Nucleated Red Blood Cells % (auto) 0.0, Anion Gap 5L, Glomerular Filtration Rate > 60.0, Calci um Level 8.9, Total Bilirubin 0.3, Aspartate Amino Transf (AST/SGOT) 11, Alanine Aminotransferase (ALT/SGPT) 19, Alkaline Phosphatase 92, Total Protein 8.1, Albumin 2.9L, Albumin/Globulin Ratio 0.6 06/21/21 11:40: Bedside Glucose (Misc Panel) 178H FSBS Laboratory Tests Test 06/20/21 16:29 06/20/21 20:18 06/21/21 11:40 Range/Units Bedside Glucose (Misc Panel) 124 164 178 80-115 MG/DL Home Medications Scheduled Aspirin (Aspirin) 81 Mg Tab.chew, 81 MG PO DAILY, (Reported) Atorvastatin Calcium (Atorvastatin Calcium) 20 Mg Tablet, 20 MG PO DAILY, (Reported) Cefdinir (Cefdinir) 300 Mg Capsule, 300 MG PO BID Doxycycline Hyclate (Doxycycline Hyclate) 100 Mg Tablet, 100 MG PO BID Gabapentin (Gabapentin) 100 Mg Capsule, 100 MG PO TID, (Reported) Lisinopril (Lisinopril) 10 Mg Tablet, 10 MG PO DAILY, (Reported) Metformin HCl (Metformin HCl ER) 500 Mg Tab.er.24h, 500 MG PO BID, (Reported) Nicotine (Nicotine Patch) 21 Mg Patch.td24, 1 PATCH TD DAILY Scheduled PRN Docusate Sodium (Docusate Sodium) 100 Mg Capsule, 100 MG PO BID PRN for CONSTIPATION, (Reported) Allergies Coded Allergies: No Known Allergies (Unverified , 06/06/20) A-FIB/CHADSVASC A-FIB History Current/History of A-Fib/PAF?: No Current PO Anticoag Therapy: No TENISHA GONZALEZ MD Jun 21, 2021 12:29
[2021-06-21 14:00] VITALS: BP 117/67
[2021-06-21 20:00] VITALS: BP 122/67
[2021-06-21] MEDS: SENNA 8.6 MG TAB (SENOKOT) PO SCH (21:13)
[2021-06-22 06:00] VITALS: BP 130/82
[2021-06-22] MEDS: HEPARIN SOD (PORCINE) 5000UNITS/ML 1ML VIAL/SYRINGE SC SCH ×2 (08:14→22:13)
[2021-06-22] MEDS: GABAPENTIN 100 MG CAP PO SCH ×3 (08:15→22:09)
[2021-06-22] MEDS: HumaLOG INSULIN (NovoLOG) PER UNIT SC SCH ×4 (08:15→22:12)
[2021-06-22] MEDS: PANTOPRAZOLE 40MG TAB (PROTONIX) PO SCH (08:16)
[2021-06-22] MEDS: ASPIRIN 81 MG CHEW TABLET PO SCH (08:16)
[2021-06-22] MEDS: CEFDINIR 300 MG CAP (OMNICEF) PO SCH ×2 (08:17→22:10)
[2021-06-22] MEDS: LACTOBACILLUS ACIDOPHILUS CAP (BACID) PO SCH ×4 (08:17→22:09)
[2021-06-22] MEDS: ATORVASTATIN 20 MG TAB PO SCH (08:17)
[2021-06-22] MEDS: DOCUSATE SODIUM 100MG CAPSULE PO SCH ×2 (08:17→22:10)
[2021-06-22] MEDS: DOXYCYCLINE HYCLATE 100MG TABLET PO SCH ×2 (08:17→22:10)
[2021-06-22] MEDS: ACETAMINOPHEN 500 MG TAB PO SCH ×3 (08:19→22:10)
[2021-06-22] MEDS: REMEDY PHYTOPLEX Z-GUARD PASTE 113GM TUBE (FROM STOREROOM PRODUCT) TOP SCH ×3 (08:19→22:00)
[2021-06-22] MEDS: NICOTINE 21MG/24HR 1 EA TRANSDERMAL TD SCH (08:19)
[2021-06-22] MEDS: LEVEMIR (INSULIN DETEMIR) 1 UNITS/0.01ML SC SCH ×2 (08:23→22:12)
--- NOTE | 2021-06-22 09:24 | IPNPDOC ---
PM&R Progress Note DATE OF SERVICE: Jun 22, 2021 Correspondence Representative Progress Note Subjective Patient seen in his room for dressing change and was encouraged to continue to keep weight off of his foot. REVIEW OF SYSTEMS: The following is a completed review of systems and has been reviewed. Review of systems otherwise unremarkable. PAIN: Patient self reports no pain EYES: No recent vision changes EARS, NOSE, & THROAT: No throat pain, or dysphagia, or rhinorrhea, +[place] CARDIOVASCULAR: Denies chest pain or palpitations PULMONARY: Denies shortness of breath GASTROINTESTINAL: Denies constipation/diarrhea GENITOURINARY: denies dysuria MUSCULOSKELETAL: generalized weakness NEUROLOGICAL:+ peripheral polyneuropathy HEMATOLOGICAL: +anemia SKIN: right foot surgery PSYCHIATRIC: Unremarkable All other review of systems found to be negative. PHYSICAL EXAMINATION: VITAL SIGNS: Please see below. GENERAL: Pleasant and cooperative. No acute distress. HEENT: PERRL. Extraocular movements intact. Clear conjunctiva, CARDIOVASCULAR: Regular rate and rhythm. No murmurs, rubs, or gallops LUNGS: Clear to auscultation bilaterally. No wheezes. No rhonchi ABDOMEN: Soft, nontender, nondistended. Positive bowel sounds. Normal active b owel sounds NEUROLOGICAL: Alert and oriented times three. Cranial nerves II through XII grossly intact. Sensation decreased to light touch in stocking pattern EXTREMITIES: 5\5 strength bilateral upper extremities. 5\5 strength right hip flexor, knee extension, ankle DF. 5/5 strength in left lower extremity. SKIN: right foot with wound with macerated skin, no exudate ASSESSMENT:60 year-old M with past medical history of diabetes with peripheral polyneuropathy who presents status post firts ray amputation due to osteomyelitis PLAN: 1.Rehab- PT/OT advance mobility and ADLs, strengthen/stretch/maintain ROM all 4 limbs 2. Neuro- peripheral polyneuropathy due to longstanding DM with poor proprioception and sensation contributing to overall weakness 3. Infectious Disease- s/p right hallux and first ray amputation on the right due to osteomyelitis cont cefdnir and doxycylcine, wound + for MRSA -monitor ESR/CRP -given concern for poor wound healing patient to be primarily NWB to RLE, ok for PWB for stairs to preserve his foot -f/u Dr. Skaggs on d/c -cont wound care management- dressing adjusted to address maceration 4. CArdiac- hx of HTn cont BP meds -HLD cont statin -on ASA for cardioprotection 5. Resp- monitor for infection, patient denies cough, daily smoker, cont nicotine patch 6. Endo- hx of DM with peripheral polyneuropathy- cont LEvemir and ISS 7. Pain- Gabapentin, oxycodone, and tylenol 8. DVT ppx- heparin 9. GI ppx- protonix 10. [id number]-[id number] Allergies Coded Allergies: No Known Allergies (Unverified , 06/06/20) Vital Signs Vital Signs Date Time Temp Pulse Resp B/P (MAP) Pulse Ox O2 Delivery O2 Flow Rate FiO2 06/22/21 08:17 128/82 06/22/21 06:00 98.3 75 16 95 Room Air Laboratory Data Labs 24H Laboratory Tests 2 06/21/21 11:40: Bedside Glucose (Misc Panel) 178H 06/21/21 16:29: Bedside Glucose (Misc Panel) 131H 06/21/21 20:09: Bedside Glucose (Misc Panel) 217H 06/22/21 05:23: Bedside Glucose (Misc Panel) 120H Current Medications Current Medications Current Medications Medications (Trade) Dose Ordered Sig/Dar Route PRN Reason Start Time Stop Time Status Last Admin Dose Admin Acetaminophen (Tylenol Tab) 1,000 mg TID PO 06/20/21 16:00 06/22/21 08:19 Aspirin (Aspirin Chewable) 81 mg DAILY PO 06/21/21 09:00 06/22/21 08:16 Atorvastatin Calcium (Lipitor) 20 mg DAILY PO 06/21/21 09:00 06/22/21 08:17 Cefdinir (Omnicef) 300 mg BID PO 06/20/21 21:00 06/22/21 08:17 Dextrose (Dextrose 50%) 25 ml ASDIRECTED PRN IV SEE LABEL COMMENTS 06/20/21 12:45 Docusate Sodium (Colace) 100 mg BID PO 06/20/21 21:00 06/22/21 08:17 Doxycycline Hyclate (Vibramycin) 100 mg BID PO 06/20/21 21:00 06/22/21 08:17 Gabapentin (Neurontin) 100 mg TID PO 06/20/21 16:00 06/22/21 08:15 Glucagon (Glucagon) 1 mg ASDIRECTED PRN SC SEE LABEL COMMENTS 06/20/21 12:45 Glucose (Glucose) 16 GM ASDIRECTED PRN PO SEE LABEL COMMENTS 06/20/21 12:45 Heparin Sodium (Porcine) (Heparin) 5,000 units Q12H SC 06/20/21 21:00 06/22/21 08:14 Home Med (Home Med List Complete!) ASDIRECTED XX 06/20/21 14:15 06/20/21 15:10 DC Insulin Detemir (Levemir Insulin) 15 units BID SC 06/20/21 21:00 06/22/21 08:23 Insulin Human Lispro (HumaLOG INSULIN) SEE PROTOCOL TABLE AC SC 06/20/21 17:30 06/22/21 08:15 Insulin Human Lispro (HumaLOG INSULIN) SEE PROTOCOL TABLE QHS SC 06/20/21 21:00 Lactobacillus Acidophilus (Bacid) 1 ea WMHS PO 06/20/21 18:00 06/22/21 08:17 Lisinopril (Prinivil) 10 mg DAILY PO 06/21/21 09:00 06/22/21 08:17 Nicotine (Nicoderm Cq 21mg) 1 patch DAILY TD 06/21/21 09:00 06/22/21 08:19 Oxycodone HCl (Roxicodone, Oxyir) 5 mg Q4HP PRN PO MODERATE PAIN (PS 5-7) 06/20/21 12:45 Pantoprazole Sodium (Protonix) 40 mg DAILY PO 06/20/21 09:00 06/22/21 08:16 Polyethylene Glycol (Miralax) 1 pkt DAILY PRN PO CONSTIPATION 06/20/21 12:45 06/21/21 09:17 Senna (Senokot) 1 tab QHS PO 06/20/21 21:00 06/21/21 21:13 Sodium Biphosphate/ Sodium Phosphate (Fleet Enema) 1 ea DAILYPRN PRN [place] CONSTIPATION 06/20/21 12:45 TENISHA GONZALEZ MD Jun 22, 2021 09:24
[2021-06-22 10:07] LABS: BASO # 0.1 10^3/uL (0.0-0.2); EOS # 0.3 10^3/uL (0.0-0.5); EOS % 4.2 % (0.0-3.0); HEMATOCRIT 38.4 % (42.0-52.0); HEMOGLOBIN 12.3 g/dl (13.5-17.5); LYMPH # 2.5 10^3/uL (1.5-5.0); LYMPH % 31.4 % (24.0-44.0); MEAN CORPUSCULAR HEMOGLOBIN 27.1 pg (27.0-33.0); MEAN CORPUSCULAR VOLUME 84.6 fl (80.0-96.0); MONO # 0.5 10^3/uL (0.0-0.8); MONO % 5.9 % (2.0-8.0); NEUTROPHILS # 4.6 10^3/uL (1.5-8.5); NEUTROPHILS % 57.3 % (36.0-66.0); PLATELET COUNT, AUTOMATED 267 10^3/uL (150-450); RED BLOOD COUNT 4.54 10^6/uL (4.30-6.10); WHITE BLOOD COUNT 8.1 10^3/uL (4.0-10.0)
[2021-06-22] MEDS ORDERED: traZODone 25MG PER 1/2 TABLET PO PRN (10:20)
[2021-06-22 10:39] LABS: BLOOD UREA NITROGEN 23 MG/DL (7-18); CARBON DIOXIDE LEVEL 25 MEQ/L (21-32); CHLORIDE LEVEL 106 MEQ/L (98-107); CREATININE FOR GFR 0.95 MG/DL (0.70-1.30); GLOMERULAR FILTRATION RATE > 60.0 (>49); GLUCOSE, FASTING 160 MG/DL (70-100); POTASSIUM SERUM 4.5 MEQ/L (3.5-5.1); SODIUM LEVEL 138 MEQ/L (136-145)
[2021-06-22 14:00] VITALS: BP 128/60
[2021-06-22 20:00] VITALS: BP 138/86
[2021-06-22] MEDS: SENNA 8.6 MG TAB (SENOKOT) PO SCH (22:09)
[2021-06-22] MEDS: traZODone 25MG PER 1/2 TABLET PO SCH (22:18)
[2021-06-23 06:00] VITALS: BP 128/72
[2021-06-23] MEDS: HEPARIN SOD (PORCINE) 5000UNITS/ML 1ML VIAL/SYRINGE SC SCH ×2 (08:22→20:58)
[2021-06-23] MEDS: LEVEMIR (INSULIN DETEMIR) 1 UNITS/0.01ML SC SCH ×2 (08:23→20:58)
[2021-06-23] MEDS: ASPIRIN 81 MG CHEW TABLET PO SCH (08:24)
[2021-06-23] MEDS: LACTOBACILLUS ACIDOPHILUS CAP (BACID) PO SCH ×4 (08:24→20:59)
[2021-06-23] MEDS: NICOTINE 21MG/24HR 1 EA TRANSDERMAL TD SCH (08:24)
[2021-06-23] MEDS: CEFDINIR 300 MG CAP (OMNICEF) PO SCH (08:24)
[2021-06-23] MEDS: ATORVASTATIN 20 MG TAB PO SCH (08:24)
[2021-06-23] MEDS: HumaLOG INSULIN (NovoLOG) PER UNIT SC SCH ×4 (08:24→20:59)
[2021-06-23] MEDS: DOXYCYCLINE HYCLATE 100MG TABLET PO SCH (08:25)
[2021-06-23] MEDS: GABAPENTIN 100 MG CAP PO SCH ×3 (08:25→20:59)
[2021-06-23] MEDS: ACETAMINOPHEN 500 MG TAB PO SCH ×3 (08:25→20:59)
[2021-06-23] MEDS: PANTOPRAZOLE 40MG TAB (PROTONIX) PO SCH (08:25)
[2021-06-23] MEDS: REMEDY PHYTOPLEX Z-GUARD PASTE 113GM TUBE (FROM STOREROOM PRODUCT) TOP SCH ×3 (08:26→21:00)
[2021-06-23] MEDS: DOCUSATE SODIUM 100MG CAPSULE PO SCH ×2 (08:35→20:59)
[2021-06-23 14:00] VITALS: BP 119/89
[2021-06-23 20:00] VITALS: BP 99/55
[2021-06-23] MEDS: SENNA 8.6 MG TAB (SENOKOT) PO SCH (20:59)
[2021-06-23] MEDS: traZODone 25MG PER 1/2 TABLET PO SCH (20:59)
[2021-06-24 06:00] VITALS: BP 131/65
[2021-06-24] MEDS: DOCUSATE SODIUM 100MG CAPSULE PO SCH ×2 (08:17→21:23)
[2021-06-24] MEDS: NICOTINE 21MG/24HR 1 EA TRANSDERMAL TD SCH (08:17)
[2021-06-24] MEDS: HEPARIN SOD (PORCINE) 5000UNITS/ML 1ML VIAL/SYRINGE SC SCH ×2 (08:18→21:23)
[2021-06-24] MEDS: PANTOPRAZOLE 40MG TAB (PROTONIX) PO SCH (08:19)
[2021-06-24] MEDS: ACETAMINOPHEN 500 MG TAB PO SCH ×3 (08:19→21:24)
[2021-06-24] MEDS: ATORVASTATIN 20 MG TAB PO SCH (08:19)
[2021-06-24] MEDS: LACTOBACILLUS ACIDOPHILUS CAP (BACID) PO SCH ×4 (08:19→21:23)
[2021-06-24] MEDS: GABAPENTIN 100 MG CAP PO SCH ×3 (08:19→21:23)
[2021-06-24] MEDS: LEVEMIR (INSULIN DETEMIR) 1 UNITS/0.01ML SC SCH ×2 (08:20→21:24)
[2021-06-24] MEDS: HumaLOG INSULIN (NovoLOG) PER UNIT SC SCH ×4 (08:21→21:00)
[2021-06-24] MEDS: REMEDY PHYTOPLEX Z-GUARD PASTE 113GM TUBE (FROM STOREROOM PRODUCT) TOP SCH ×3 (08:21→21:00)
[2021-06-24] MEDS: ASPIRIN 81 MG CHEW TABLET PO SCH (08:24)
[2021-06-24 14:00] VITALS: BP 144/76
[2021-06-24 20:00] VITALS: BP 122/60
[2021-06-24] MEDS: SENNA 8.6 MG TAB (SENOKOT) PO SCH (21:23)
[2021-06-24] MEDS: traZODone 25MG PER 1/2 TABLET PO SCH (21:24)
[2021-06-25 05:54] LABS: BASO # 0.1 10^3/uL (0.0-0.2); BASO % 0.8 % (0.0-1.0); EOS # 0.3 10^3/uL (0.0-0.5); EOS % 4.7 % (0.0-3.0); HEMATOCRIT 36.1 % (42.0-52.0); HEMOGLOBIN 11.5 g/dl (13.5-17.5); LYMPH # 2.5 10^3/uL (1.5-5.0); LYMPH % 40.2 % (24.0-44.0); MEAN CORPUSCULAR HEMOGLOBIN 27.1 pg (27.0-33.0); MEAN CORPUSCULAR HGB CONC 31.9 g/dl (32.0-36.5); MEAN CORPUSCULAR VOLUME 85.1 fl (80.0-96.0); MONO # 0.4 10^3/uL (0.0-0.8); MONO % 6.6 % (2.0-8.0); NEUTROPHILS # 2.9 10^3/uL (1.5-8.5); NEUTROPHILS % 47.4 % (36.0-66.0); PLATELET COUNT, AUTOMATED 227 10^3/uL (150-450); RED BLOOD COUNT 4.24 10^6/uL (4.30-6.10); WHITE BLOOD COUNT 6.2 10^3/uL (4.0-10.0)
[2021-06-25 06:20] VITALS: BP 139/85
[2021-06-25 06:29] LABS: BLOOD UREA NITROGEN 24 MG/DL (7-18); CALCIUM LEVEL 8.7 MG/DL (8.8-10.2); CARBON DIOXIDE LEVEL 28 MEQ/L (21-32); CHLORIDE LEVEL 107 MEQ/L (98-107); CREATININE FOR GFR 0.97 MG/DL (0.70-1.30); GLOMERULAR FILTRATION RATE > 60.0 (>49); GLUCOSE, FASTING 125 MG/DL (70-100); SODIUM LEVEL 139 MEQ/L (136-145)
[2021-06-25] MEDS: HEPARIN SOD (PORCINE) 5000UNITS/ML 1ML VIAL/SYRINGE SC SCH ×2 (08:09→21:11)
[2021-06-25] MEDS: LEVEMIR (INSULIN DETEMIR) 1 UNITS/0.01ML SC SCH ×2 (08:10→21:11)
[2021-06-25] MEDS: HumaLOG INSULIN (NovoLOG) PER UNIT SC SCH ×4 (08:10→21:00)
[2021-06-25] MEDS: ATORVASTATIN 20 MG TAB PO SCH (08:11)
[2021-06-25] MEDS: ACETAMINOPHEN 500 MG TAB PO SCH ×3 (08:11→21:11)
[2021-06-25] MEDS: PANTOPRAZOLE 40MG TAB (PROTONIX) PO SCH (08:11)
[2021-06-25] MEDS: ASPIRIN 81 MG CHEW TABLET PO SCH (08:11)
[2021-06-25] MEDS: NICOTINE 21MG/24HR 1 EA TRANSDERMAL TD SCH (08:11)
[2021-06-25] MEDS: GABAPENTIN 100 MG CAP PO SCH ×3 (08:11→21:10)
[2021-06-25] MEDS: LACTOBACILLUS ACIDOPHILUS CAP (BACID) PO SCH ×4 (08:11→21:10)
[2021-06-25] MEDS: DOCUSATE SODIUM 100MG CAPSULE PO SCH ×2 (08:11→21:10)
[2021-06-25] MEDS: REMEDY PHYTOPLEX Z-GUARD PASTE 113GM TUBE (FROM STOREROOM PRODUCT) TOP SCH ×3 (08:12→21:00)
--- NOTE | 2021-06-25 10:25 | IPNPDOC ---
PM&R Progress Note DATE OF SERVICE: Jun 25, 2021 Call Or Contact Centre Operator Progress Note Subjective Patient seen in his room reporting he is having some neck pain from tensing up his muscles. REVIEW OF SYSTEMS: The following is a completed review of systems and has been reviewed. Review of systems otherwise unremarkable. PAIN: Patient self reports +neck pain EYES: No recent vision changes EARS, NOSE, & THROAT: No throat pain, or dysphagia, or rhinorrhea, +[place] CARDIOVASCULAR: Denies chest pain or palpitations PULMONARY: Denies shortness of breath GASTROINTESTINAL: Denies constipation/diarrhea GENITOURINARY: denies dysuria MUSCULOSKELETAL: generalized weakness NEUROLOGICAL:+ peripheral polyneuropathy HEMATOLOGICAL: +anemia SKIN: right foot surgery PSYCHIATRIC: Unremarkable All other review of systems found to be negative. PHYSICAL EXAMINATION: VITAL SIGNS: Please see below. GENERAL: Pleasant and cooperative. No acute distress. HEENT: PERRL. Extraocular movements intact. Clear conjunctiva, CARDIOVASCULAR: Regular rate and rhythm. No murmurs, rubs, or gallops LUNGS: Clear to auscultation bilaterally. No wheezes. No rhonchi ABDOMEN: Soft, nontender, nondistended. Positive bowel sounds. Normal active bowel sounds NEUROLOGICAL: Alert and oriented times three. Cranial nerves II through XII grossly intact. Sensation decreased to light touch in stocking pattern EXTREMITIES: 5\5 strength bilateral upper extremities. 5\5 strength right hip flexor, knee extension, ankle DF. 5/5 strength in left lower extremity. SKIN: right foot with wound not examined ASSESSMENT:60 year-old M with past medical history of diabetes with peripheral polyneuropathy who presents status post firts ray amputation due to osteomyelitis PLAN: 1.Rehab- PT/OT advance mobility and ADLs, strengthen/stretch/maintain ROM all 4 limbs 2. Neuro- peripheral polyneuropathy due to longstanding DM with poor proprioception and sensation contributing to overall weakness 3. Infectious Disease- s/p right hallux and first ray amputation on the right due to osteomyelitis cont cefdnir and doxycylcine, wound + for MRSA -monitor ESR/CRP -given concern for poor wound healing patient to be primarily NWB to RLE, ok for PWB for stairs to preserve his foot -f/u Dr. Skaggs on d/c -cont wound care management- dressing adjusted to address maceration 4. CArdiac- hx of HTn cont BP meds -HLD cont statin -on ASA for cardioprotection 5. Resp- monitor for infection, patient denies cough, daily smoker, cont nicotine patch 6. Endo- hx of DM with peripheral polyneuropathy- cont LEvemir and ISS 7. Pain- Gabapentin, oxycodone, and tylenol -lidoderm patch to posterior neck for cervicalgia 8. DVT ppx- heparin 9. GI ppx- protonix 10. [id number] to home, progressing towards goals Allergies Coded Allergies: No Known Allergies (Unverified , 06/06/20) Vital Signs Vital Signs Date Time Temp Pulse Resp B/P (MAP) Pulse Ox O2 Delivery O2 Flow Rate FiO2 06/25/21 08:13 126/88 06/25/21 06:20 97.3 72 20 97 Room Air Laboratory Data CBC/BMP Laboratory Tests 06/25/21 05:34 Labs 24H Laboratory Tests 2 06/24/21 11:18: Bedside Glucose (Misc Panel) 119H 06/24/21 16:40: Bedside Glucose (Misc Panel) 154H 06/24/21 20:01: Bedside Glucose (Misc Panel) 138H 06/25/21 05:27: Bedside Glucose (Misc Panel) 135H 06/25/21 05:34: Immature Granulocyte % (Auto) 0.3, Neutrophils (%) (Auto) 47.4, Lymphocytes (%) (Auto) 40.2, Monocytes (%) (Auto) 6.6, Eosinophils (%) (Auto) 4.7H, Basophils (%) (Auto) 0.8, Neutrophils # (Auto) 2.9, Lymphocytes # (Auto) 2.5, Monocytes # (Auto) 0.4, Eosinophils # (Auto) 0.3, Basophils # (Auto) 0.1, Nucleated Red Blood Cells % (auto) 0.0, Anion Gap 4L, Glomerular Filtration Rate > 60.0, Calcium Level 8.7L Current Medications Current Medications Current Medications Medications (Trade) Dose Ordered Sig/Dar Route PRN Reason Start Time Stop Time Status Last Admin Dose Admin Acetaminophen (Tylenol Tab) 1,000 mg TID PO 06/20/21 16:00 06/25/21 08:11 Aspirin (Aspirin Chewable) 81 mg DAILY PO 06/21/21 09:00 06/25/21 08:11 Atorvastatin Calcium (Lipitor) 20 mg DAILY PO 06/21/21 09:00 06/25/21 08:11 Cefdinir (Omnicef) 300 mg BID PO 06/20/21 21:00 06/23/21 10:15 DC 06/23/21 08:24 Dextrose (Dextrose 50%) 25 ml ASDIRECTED PRN IV SEE LABEL COMMENTS 06/20/21 12:45 Docusate Sodium (Colace) 100 mg BID PO 06/20/21 21:00 06/25/21 08:11 Doxycycline Hyclate (Vibramycin) 100 mg BID PO 06/20/21 21:00 06/23/21 10:15 DC 06/23/21 08:25 Gabapentin (Neurontin) 100 mg TID PO 06/20/21 16:00 06/25/21 08:11 Glucagon (Glucagon) 1 mg ASDIRECTED PRN SC SEE LABEL COMMENTS 06/20/21 12:45 Glucose (Glucose) 16 GM ASDIRECTED PRN PO SEE LABEL COMMENTS 06/20/21 12:45 Heparin Sodium (Porcine) (Heparin) 5,000 units Q12H SC 06/20/21 21:00 06/25/21 08:09 Home Med (Home Med List Complete!) ASDIRECTED XX 06/20/21 14:15 06/20/21 15:10 DC Insulin Detemir (Levemir Insulin) 15 units BID SC 06/20/21 21:00 06/25/21 08:10 Insulin Human Lispro (HumaLOG INSULIN) SEE PROTOCOL TABLE AC SC 06/20/21 17:30 06/25/21 08:10 Insulin Human Lispro (HumaLOG INSULIN) SEE PROTOCOL TABLE QHS SC 06/20/21 21:00 Lactobacillus Acidophilus (Bacid) 1 ea WMHS PO 06/20/21 18:00 06/25/21 08:11 Lisinopril (Prinivil) 10 mg DAILY PO 06/21/21 09:00 06/25/21 08:13 Nicotine (Nicoderm Cq 21mg) 1 patch DAILY TD 06/21/21 09:00 06/25/21 08:11 Oxycodone HCl (Roxicodone, Oxyir) 5 mg Q4HP PRN PO MODERATE PAIN (PS 5-7) 06/20/21 12:45 Pantoprazole Sodium (Protonix) 40 mg DAILY PO 06/20/21 09:00 06/25/21 08:11 Polyethylene Glycol (Miralax) 1 pkt DAILY PRN PO CONSTIPATION 06/20/21 12:45 06/21/21 09:17 Senna (Senokot) 1 tab QHS PO 06/20/21 21:00 06/24/21 21:23 Sodium Biphosphate/ Sodium Phosphate (Fleet Enema) 1 ea DAILYPRN PRN [place] CONSTIPATION 06/20/21 12:45 Trazodone HCl (Desyrel) 25 mg QHS PO 06/22/21 21:00 06/24/21 21:24 Trazodone HCl (Desyrel) 25 mg QHSP PRN PO INSOMNIA 06/22/21 10:20 TENISHA GONZALEZ MD Jun 25, 2021 10:25
[2021-06-25 14:00] VITALS: BP 155/71
[2021-06-25] MEDS: LIDOCAINE 5% (LIDODERM) PATCH TD SCH (18:04)
[2021-06-25 19:49] VITALS: BP 132/83
[2021-06-25] MEDS ORDERED: **NOTE PATIENT COMMENT** MISC XX SCH (21:00)
[2021-06-25] MEDS: SENNA 8.6 MG TAB (SENOKOT) PO SCH (21:10)
[2021-06-25] MEDS: traZODone 25MG PER 1/2 TABLET PO SCH (21:10)
[2021-06-26 06:34] VITALS: BP 123/72
[2021-06-26] MEDS: HumaLOG INSULIN (NovoLOG) PER UNIT SC SCH ×4 (07:30→20:42)
[2021-06-26] MEDS: LEVEMIR (INSULIN DETEMIR) 1 UNITS/0.01ML SC SCH (09:00)
[2021-06-26] MEDS: REMEDY PHYTOPLEX Z-GUARD PASTE 113GM TUBE (FROM STOREROOM PRODUCT) TOP SCH ×3 (09:00→20:43)
[2021-06-26] MEDS: PANTOPRAZOLE 40MG TAB (PROTONIX) PO SCH (09:02)
[2021-06-26] MEDS: ASPIRIN 81 MG CHEW TABLET PO SCH (09:02)
[2021-06-26] MEDS: ATORVASTATIN 20 MG TAB PO SCH (09:02)
[2021-06-26] MEDS: DOCUSATE SODIUM 100MG CAPSULE PO SCH ×2 (09:02→20:41)
[2021-06-26] MEDS: GABAPENTIN 100 MG CAP PO SCH ×3 (09:02→20:41)
[2021-06-26] MEDS: LACTOBACILLUS ACIDOPHILUS CAP (BACID) PO SCH ×4 (09:02→20:42)
[2021-06-26] MEDS: HEPARIN SOD (PORCINE) 5000UNITS/ML 1ML VIAL/SYRINGE SC SCH ×2 (09:03→20:41)
[2021-06-26] MEDS: ACETAMINOPHEN 500 MG TAB PO SCH ×3 (09:03→20:42)
[2021-06-26] MEDS: LIDOCAINE 5% (LIDODERM) PATCH TD SCH (09:04)
[2021-06-26] MEDS: NICOTINE 21MG/24HR 1 EA TRANSDERMAL TD SCH (09:04)
--- NOTE | 2021-06-26 09:58 | IPNPDOC ---
PM&R Progress Note DATE OF SERVICE: Jun 26, 2021 [employer] Progress Note Subjective Patient seen in his room reporting the lidoderm patch keeps falling off. REVIEW OF SYSTEMS: The following is a completed review of systems and has been reviewed. Review of systems otherwise unremarkable. PAIN: Patient self reports +neck pain EYES: No recent vision changes EARS, NOSE, & THROAT: No throat pain, or dysphagia, or rhinorrhea, +[place] CARDIOVASCULAR: Denies chest pain or palpitations PULMONARY: Denies shortness of breath GASTROINTESTINAL: Denies constipation/diarrhea GENITOURINARY: denies dysuria MUSCULOSKELETAL: generalized weakness NEUROLOGICAL:+ peripheral polyneuropathy HEMATOLOGICAL: +anemia SKIN: right foot surgery PSYCHIATRIC: Unremarkable All other review of systems found to be negative. PHYSICAL EXAMINATION: VITAL SIGNS: Please see below. GENERAL: Pleasant and cooperative. No acute distress. HEENT: PERRL. Extraocular movements intact. Clear conjunctiva, CARDIOVASCULAR: Regular rate and rhythm. No murmurs, rubs, or gallops LUNGS: Clear to auscultation bilaterally. No wheezes. No rhonchi ABDOMEN: Soft, nontender, nondistended. Positive bowel sounds. Normal active bowel sounds NEUROLOGICAL: Alert and oriented times three. Cranial nerves II through XII grossly intact. Sensation decreased to light touch in stocking pattern EXTREMITIES: 5\5 strength bilateral upper extremities. 5\5 strength right hip flexor, knee extension, ankle DF. 5/5 strength in left lower extremity. SKIN: right foot with wound with scant maceration, no induration or exudate ASSESSMENT:60 year-old M with past medical history of diabetes with peripheral polyneuropathy who presents status post firts ray amputation due to osteomy elikadi PLAN: 1.Rehab- PT/OT advance mobility and ADLs, strengthen/stretch/maintain ROM all 4 limbs 2. Neuro- peripheral polyneuropathy due to longstanding DM with poor proprioception and sensation contributing to overall weakness 3. Infectious Disease- s/p right hallux and first ray amputation on the right due to osteomyelitis s/p course of cefdnir and doxycylcine, wound + for MRSA -monitor ESR/CRP -given concern for poor wound healing patient to be primarily NWB to RLE, ok for PWB for stairs to preserve his foot -f/u Dr. Skaggs on d/c -cont wound care management- dressing adjusted to address maceration (improved) 4. CArdiac- hx of HTn cont BP meds -HLD cont statin -on ASA for cardioprotection 5. Resp- monitor for infection, patient denies cough, daily smoker, cont nicotine patch 6. Endo- hx of DM with peripheral polyneuropathy- patient going home on metformin, will d/c levemir and start daily metformin, cont ISS 7. Pain- Gabapentin, oxycodone, and tylenol -lidoderm patch is falling off, will trial flector pact instead to posterior neck for cervicalgia 8. DVT ppx- heparin 9. GI ppx- protonix 10. [id number] to home, progressing towards goals Allergies Coded Allergies: No Known Allergies (Unverified , 06/06/20) Vital Signs Vital Signs Date Time Temp Pulse Resp B/P (MAP) Pulse Ox O2 Delivery O2 Flow Rate FiO2 06/26/21 09:02 123/72 06/26/21 06:34 97.2 70 18 97 Room Air Laboratory Data Labs 24H Laboratory Tests 2 06/25/21 11:56: Bedside Glucose (Misc Panel) 123H 06/25/21 17:42: Bedside Glucose (Misc Panel) 98 06/25/21 19:52: Bedside Glucose (Misc Panel) 145H 06/26/21 06:38: Bedside Glucose (Misc Panel) 105 Current Medications Current Medications Current Medications Medications (Trade) Dose Ordered Sig/Dar Route PRN Reason Start Time Stop Time Status Last Admin Dose Admin Acetaminophen (Tylenol Tab) 1,000 mg TID PO 06/20/21 16:00 06/26/21 09:03 Aspirin (Aspirin Chewable) 81 mg DAILY PO 06/21/21 09:00 06/26/21 09:02 Atorvastatin Calcium (Lipitor) 20 mg DAILY PO 06/21/21 09:00 06/26/21 09:02 Cefdinir (Omnicef) 300 mg BID PO 06/20/21 21:00 06/23/21 10:15 DC 06/23/21 08:24 Dextrose (Dextrose 50%) 25 ml ASDIRECTED PRN IV SEE LABEL COMMENTS 06/20/21 12:45 Docusate Sodium (Colace) 100 mg BID PO 06/20/21 21:00 06/26/21 09:02 Doxycycline Hyclate (Vibramycin) 100 mg BID PO 06/20/21 21:00 06/23/21 10:15 DC 06/23/21 08:25 Gabapentin (Neurontin) 100 mg TID PO 06/20/21 16:00 06/26/21 09:02 Glucagon (Glucagon) 1 mg ASDIRECTED PRN SC SEE LABEL COMMENTS 06/20/21 12:45 Glucose (Glucose) 16 GM ASDIRECTED PRN PO SEE LABEL COMMENTS 06/20/21 12:45 Heparin Sodium (Porcine) (Heparin) 5,000 units Q12H SC 06/20/21 21:00 06/26/21 09:03 Home Med (Home Med List Complete!) ASDIRECTED XX 06/20/21 14:15 06/20/21 15:10 DC Insulin Detemir (Levemir Insulin) 15 units BID SC 06/20/21 21:00 06/25/21 21:11 Insulin Human Lispro (HumaLOG INSULIN) SEE PROTOCOL TABLE AC SC 06/20/21 17:30 06/25/21 12:00 Insulin Human Lispro (HumaLOG INSULIN) SEE PROTOCOL TABLE QHS SC 06/20/21 21:00 Lactobacillus Acidophilus (Bacid) 1 ea WMHS PO 06/20/21 18:00 06/26/21 09:02 Lidocaine (Lidoderm Patch) 1 patch DAILY TD 06/25/21 09:00 06/26/21 09:04 Lisinopril (Prinivil) 10 mg DAILY PO 06/21/21 09:00 06/26/21 09:02 Nicotine (Nicoderm Cq 21mg) 1 patch DAILY TD 06/21/21 09:00 06/26/21 09:04 Non-Formulary Medication ( See Comment Field Below ) REMOVE LIDODERM PATCH DAILY@ XX 06/25/21 21:00 06/25/21 21:12 Oxycodone HCl (Roxicodone, Oxyir) 5 mg Q4HP PRN PO MODERATE PAIN (PS 5-7) 06/20/21 12:45 06/25/21 15:00 DC Pantoprazole Sodium (Protonix) 40 mg DAILY PO 06/20/21 09:00 06/26/21 09:02 Polyethylene Glycol (Miralax) 1 pkt DAILY PRN PO CONSTIPATION 06/20/21 12:45 06/21/21 09:17 Senna (Senokot) 1 tab QHS PO 06/20/21 21:00 06/25/21 21:10 Sodium Biphosphate/ Sodium Phosphate (Fleet Enema) 1 ea DAILYPRN PRN [place] CONSTIPATION 06/20/21 12:45 Trazodone HCl (Desyrel) 25 mg QHS PO 06/22/21 21:00 06/25/21 21:10 Trazodone HCl (Desyrel) 25 mg QHSP PRN PO INSOMNIA 06/22/21 10:20 TENISHA GONZALEZ MD Jun 26, 2021 09:58
[2021-06-26 14:00] VITALS: BP 131/80
[2021-06-26 20:00] VITALS: BP 102/62
[2021-06-26] MEDS: SENNA 8.6 MG TAB (SENOKOT) PO SCH (20:41)
[2021-06-26] MEDS: DICLOFENAC EPOLAMINE 1.3 % PATCH TOP SCH (20:41)
[2021-06-26] MEDS: traZODone 25MG PER 1/2 TABLET PO SCH (20:41)
[2021-06-27 06:00] VITALS: BP 104/60
[2021-06-27] MEDS: ASPIRIN 81 MG CHEW TABLET PO SCH (08:30)
[2021-06-27] MEDS: ATORVASTATIN 20 MG TAB PO SCH (08:30)
[2021-06-27] MEDS: metFORMIN XR 500MG TAB *GLUCOPHAGE XR PO SCH (08:30)
[2021-06-27] MEDS: HEPARIN SOD (PORCINE) 5000UNITS/ML 1ML VIAL/SYRINGE SC SCH ×2 (08:30→21:02)
[2021-06-27] MEDS: LACTOBACILLUS ACIDOPHILUS CAP (BACID) PO SCH ×4 (08:31→21:02)
[2021-06-27] MEDS: PANTOPRAZOLE 40MG TAB (PROTONIX) PO SCH (08:31)
[2021-06-27] MEDS: GABAPENTIN 100 MG CAP PO SCH ×3 (08:31→21:02)
[2021-06-27] MEDS: DOCUSATE SODIUM 100MG CAPSULE PO SCH ×2 (08:31→21:02)
[2021-06-27] MEDS: ACETAMINOPHEN 500 MG TAB PO SCH ×3 (08:32→21:02)
[2021-06-27] MEDS: NICOTINE 21MG/24HR 1 EA TRANSDERMAL TD SCH (08:32)
[2021-06-27] MEDS: REMEDY PHYTOPLEX Z-GUARD PASTE 113GM TUBE (FROM STOREROOM PRODUCT) TOP SCH ×3 (08:33→21:00)
[2021-06-27] MEDS: DICLOFENAC EPOLAMINE 1.3 % PATCH TOP SCH ×2 (08:33→21:02)
[2021-06-27] MEDS: HumaLOG INSULIN (NovoLOG) PER UNIT SC SCH ×4 (08:41→21:00)
--- NOTE | 2021-06-27 09:02 | IPNPDOC ---
PM&R Progress Note DATE OF SERVICE: Jun 27, 2021 [employer] Progress Note Subjective Patient seen in his room with no new complaints. REVIEW OF SYSTEMS: The following is a completed review of systems and has been reviewed. Review of systems otherwise unremarkable. PAIN: Patient self reports +neck pain EYES: No recent vision changes EARS, NOSE, & THROAT: No throat pain, or dysphagia, or rhinorrhea, +[place] CARDIOVASCULAR: Denies chest pain or palpitations PULMONARY: Denies shortness of breath GASTROINTESTINAL: Denies constipation/diarrhea GENITOURINARY: denies dysuria MUSCULOSKELETAL: generalized weakness NEUROLOGICAL:+ peripheral polyneuropathy HEMATOLOGICAL: +anemia SKIN: right foot surgery PSYCHIATRIC: Unremarkable All other review of systems found to be negative. PHYSICAL EXAMINATION: VITAL SIGNS: Please see below. GENERAL: Pleasant and cooperative. No acute distress. HEENT: PERRL. Extraocular movements intact. Clear conjunctiva, CARDIOVASCULAR: Regular rate and rhythm. No murmurs, rubs, or gallops LUNGS: Clear to auscultation bilaterally. No wheezes. No rhonchi ABDOMEN: Soft, nontender, nondistended. Positive bowel sounds. Normal active bowel sounds NEUROLOGICAL: Alert and oriented times three. Cranial nerves II through XII grossly intact. Sensation decreased to light touch in stocking pattern EXTREMITIES: 5\5 strength bilateral upper extremities. 5\5 strength right hip flexor, knee extension, ankle DF. 5/5 strength in left lower extremity. SKIN: right foot with wound with scant maceration, no induration or exudate ASSESSMENT:60 year-old M with past medical history of diabetes with peripheral polyneuropathy who presents status post firts ray amputation due to osteomyelitis PLAN: 1.Rehab- PT/OT advance mobility and ADLs, strengthen/stretch/maintain ROM all 4 limbs 2. Neuro- peripheral polyneuropathy due to longstanding DM with poor proprioception and sensation contributing to overall weakness 3. Infectious Disease- s/p right hallux and first ray amputation on the right due to osteomyelitis s/p course of cefdnir and doxycylcine, wound + for MRSA -monitor ESR/CRP -given concern for poor wound healing patient to be primarily NWB to RLE, ok for PWB for stairs to preserve his foot -f/u Dr. Skaggs on d/c -cont wound care management- dressing adjusted to address maceration (improved) 4. CArdiac- hx of HTn cont BP meds -HLD cont statin -on ASA for cardioprotection 5. Resp- monitor for infection, patient denies cough, daily smoker, cont nicotine patch 6. Endo- hx of DM with peripheral polyneuropathy- patient going home on metformin, d/c'd levemir cont daily metformin, cont ISS 7. Pain- Gabapentin, oxycodone, and tylenol -lidoderm patch is falling off, cont flector pact instead to posterior neck for cervicalgia 8. DVT ppx- heparin 9. GI ppx- protonix 10. [id number] to home, progressing towards goals Allergies Coded Allergies: No Known Allergies (Unverified , 06/06/20) Vital Signs Vital Signs Date Time Temp Pulse Resp B/P (MAP) Pulse Ox O2 Delivery O2 Flow Rate FiO2 06/27/21 08:31 104/60 06/27/21 06:00 98.4 74 16 96 Room Air Laboratory Data Labs 24H Laboratory Tests 2 06/26/21 11:24: Bedside Glucose (Misc Panel) 138H 06/26/21 16:35: Bedside Glucose (Misc Panel) 108 06/26/21 19:43: Bedside Glucose (Misc Panel) 179H 06/27/21 05:52: Bedside Glucose (Misc Panel) 144H Current Medications Current Medications Current Medications Medications (Trade) Dose Ordered Sig/Dar Route PRN Reason Start Time Stop Time Status Last Admin Dose Admin Acetaminophen (Tylenol Tab) 1,000 mg TID PO 06/20/21 16:00 06/27/21 08:32 Aspirin (Aspirin Chewable) 81 mg DAILY PO 06/21/21 09:00 06/27/21 08:30 Atorvastatin Calcium (Lipitor) 20 mg DAILY PO 06/21/21 09:00 06/27/21 08:30 Cefdinir (Omnicef) 300 mg BID PO 06/20/21 21:00 06/23/21 10:15 DC 06/23/21 08:24 Dextrose (Dextrose 50%) 25 ml ASDIRECTED PRN IV SEE LABEL COMMENTS 06/20/21 12:45 Diclofenac Epolamine (Flector 1.3%) 1 patch Q12H TOP 06/26/21 21:00 06/27/21 08:33 Docusate Sodium (Colace) 100 mg BID PO 06/20/21 21:00 06/27/21 08:31 Doxycycline Hyclate (Vibramycin) 100 mg BID PO 06/20/21 21:00 06/23/21 10:15 DC 06/23/21 08:25 Gabapentin (Neurontin) 100 mg TID PO 06/20/21 16:00 06/27/21 08:31 Glucagon (Glucagon) 1 mg ASDIRECTED PRN SC SEE LABEL COMMENTS 06/20/21 12:45 Glucose (Glucose) 16 GM ASDIRECTED PRN PO SEE LABEL COMMENTS 06/20/21 12:45 Heparin Sodium (Porcine) (Heparin) 5,000 units Q12H SC 06/20/21 21:00 06/27/21 08:30 Home Med (Home Med List Complete!) ASDIRECTED XX 06/20/21 14:15 06/20/21 15:10 DC Insulin Detemir (Levemir Insulin) 15 units BID SC 06/20/21 21:00 06/26/21 09:58 DC 06/25/21 21:11 Insulin Human Lispro (HumaLOG INSULIN) SEE PROTOCOL TABLE AC SC 06/20/21 17:30 06/27/21 08:41 Insulin Human Lispro (HumaLOG INSULIN) SEE PROTOCOL TABLE QHS SC 06/20/21 21:00 Lactobacillus Acidophilus (Bacid) 1 ea WMHS PO 06/20/21 18:00 06/27/21 08:31 Lidocaine (Lidoderm Patch) 1 patch DAILY TD 06/25/21 09:00 06/26/21 13:58 DC 06/26/21 09:04 Lisinopril (Prinivil) 10 mg DAILY PO 06/21/21 09:00 06/26/21 09:02 Metformin HCl (Glucophage Xr) 500 mg DAILY PO 06/27/21 09:00 06/27/21 08:30 Nicotine (Nicoderm Cq 21mg) 1 patch DAILY TD 06/21/21 09:00 06/27/21 08:32 Non-Formulary Medication ( See Comment Field Below ) REMOVE LIDODERM PATCH DAILY@ XX 06/25/21 21:00 06/26/21 13:58 DC 06/25/21 21:12 Oxycodone HCl (Roxicodone, Oxyir) 5 mg Q4HP PRN PO MODERATE PAIN (PS 5-7) 06/20/21 12:45 06/25/21 15:00 DC Pantoprazole Sodium (Protonix) 40 mg DAILY PO 06/20/21 09:00 06/27/21 08:31 Polyethylene Glycol (Miralax) 1 pkt DAILY PRN PO CONSTIPATION 06/20/21 12:45 06/21/21 09:17 Senna (Senokot) 1 tab QHS PO 06/20/21 21:00 06/26/21 20:41 Sodium Biphosphate/ Sodium Phosphate (Fleet Enema) 1 ea DAILYPRN PRN [place] CONSTIPATION 06/20/21 12:45 Trazodone HCl (Desyrel) 25 mg QHS PO 06/22/21 21:00 06/26/21 20:41 Trazodone HCl (Desyrel) 25 mg QHSP PRN PO INSOMNIA 06/22/21 10:20 TENISHA GONZALEZ MD Jun 27, 2021 09:02
[2021-06-27 10:24] LABS: BASO % 0.5 % (0.0-1.0); EOS # 0.3 10^3/uL (0.0-0.5); EOS % 4.2 % (0.0-3.0); HEMOGLOBIN 12.6 g/dl (13.5-17.5); LYMPH # 2.8 10^3/uL (1.5-5.0); LYMPH % 38.1 % (24.0-44.0); MEAN CORPUSCULAR HEMOGLOBIN 27.6 pg (27.0-33.0); MEAN CORPUSCULAR HGB CONC 32.3 g/dl (32.0-36.5); MEAN CORPUSCULAR VOLUME 85.3 fl (80.0-96.0); MONO # 0.5 10^3/uL (0.0-0.8); MONO % 6.7 % (2.0-8.0); NEUTROPHILS # 3.7 10^3/uL (1.5-8.5); NEUTROPHILS % 50.2 % (36.0-66.0); PLATELET COUNT, AUTOMATED 225 10^3/uL (150-450); RED BLOOD COUNT 4.57 10^6/uL (4.30-6.10); WHITE BLOOD COUNT 7.3 10^3/uL (4.0-10.0)
[2021-06-27 10:49] LABS: BLOOD UREA NITROGEN 19 MG/DL (7-18); CALCIUM LEVEL 9.4 MG/DL (8.8-10.2); CARBON DIOXIDE LEVEL 25 MEQ/L (21-32); CHLORIDE LEVEL 106 MEQ/L (98-107); CREATININE FOR GFR 1.05 MG/DL (0.70-1.30); GLOMERULAR FILTRATION RATE > 60.0 (>49); GLUCOSE, FASTING 161 MG/DL (70-100); POTASSIUM SERUM 4.4 MEQ/L (3.5-5.1); SODIUM LEVEL 137 MEQ/L (136-145)
--- NOTE | 2021-06-27 13:11 | IPNPDOC ---
Subjective Date Seen The patient was seen on 06/27/21. Subjective Chief Complaint/HPI Patient feels well does not offer any complaints today. Objective Physical Examination General Exam: Positive: Alert, Cooperative, No Acute Distress Eye Exam: Positive: PERRLA, Conjunctiva & lids normal, EOMI; Negative: Sclera icteric Neck Exam: Positive: Supple; Negative: JVD, thyromegaly Chest Exam: Positive: Clear to auscultation, Normal air movement Heart Exam: Positive: Rate Normal, Regular Rhythm, Normal S1, Normal S2; Negative: Murmurs, Rubs Abdomen Exam: Positive: Normal bowel sounds, Soft; Negative: Tenderness, Hepatospenomegaly Extremity Exam: Positive: Normal pulses; Negative: Clubbing, Cyanosis, Edema Assessment /Plan Assessment 60-year-old male with past medical history of diabetes, hypertension, hy perlipidemia, schizophrenia, neuropathy 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 Patient had right hallux and first ray amputation on 06/13/2021. Wound culture from the OR grew polymicrobial karen as below. patient was evaluated by infectious disease and IV antibiotics were then switched to oral antibiotics. Subsequently patient was evaluated by PT and OT and felt needed continued rehab as he was below his usual functional level. Patient was discharged to ARU for continued rehab. Right hallux and first metatarsal osteomyelitis and cellulitis s/p Right hallux and first metatarsal amputation. s/p OR on 06/13/21, Wound culture polymicrobial karen including MRSA, Proteus, strep group G, Morganella. Anaerobic culture negative Initially treated with vanco and zosyn then was switched to cefdinir and doxycycline each for 5 days. Finished antibiotics on 06/23/21 Follow-up with Dr. Skaggs Peripheral arterial disease Right lower extremity arterial Doppler shows distal posterior tibial artery with reversed flow is identified with an occluded vessel revascularized at the midportion. Small stenotic areas were seen in the distal anterior tibial artery, right profunda, and at the origin of the profunda. Schizophrenia continue home meds Diabetes with neuropathy FS AC and HS continue metformin and lispro as per sliding Continue gabapentin. Hypertension continue Lisinopril HLD continue Statin Congenital hearing loss Extremely hard of hearing Plan/VTE VTE Prophylaxis Ordered?: Yes VS, I&O, 24H, Fishbone Vital Signs/I&O Vital Signs Date Time Temp Pulse Resp B/P (MAP) Pulse Ox O2 Delivery O2 Flow Rate FiO2 06/27/21 08:31 104/60 06/27/21 06:00 98.4 74 16 96 Room Air I&O- Last 24 Hours up to 6 AM 06/27/21 05:59 Intake Total 1410 ml Output Total 2800 ml Balance -1390 ml Laboratory Data 24H LABS Laboratory Tests 2 06/26/21 16:35: Bedside Glucose (Misc Panel) 108 06/26/21 19:43: Bedside Glucose (Misc Panel) 179H 06/27/21 05:52: Bedside Glucose (Misc Panel) 144H 06/27/21 09:49: Immature Granulocyte % (Auto) 0.3, Neutrophils (%) (Auto) 50.2, Lymphocytes (%) (Auto) 38.1, Monocytes (%) (Auto) 6.7, Eosinophils (%) (Auto) 4.2H, Basophils (%) (Auto) 0.5, Neutrophils # (Auto) 3.7, Lymphocytes # (Auto) 2.8, Monocytes # (Auto) 0.5, Eosinophils # (Auto) 0.3, Basophils # (Auto) 0.0, Nucleated Red Blood Cells % (auto) 0.0, Anion Gap 6L, Glomerular Filtration Rate > 60.0, Calcium Level 9.4 06/27/21 11:18: Bedside Glucose (Misc Panel) 168H CBC/BMP Laboratory Tests 06/27/21 09:49 Daysi Pollard MD Jun 27, 2021 13:11
[2021-06-27 14:00] VITALS: BP 115/64
[2021-06-27 20:00] VITALS: BP 136/72
[2021-06-27] MEDS: SENNA 8.6 MG TAB (SENOKOT) PO SCH (21:02)
[2021-06-27] MEDS: traZODone 25MG PER 1/2 TABLET PO SCH (21:02)
[2021-06-28 05:57] VITALS: BP 138/81
[2021-06-28] MEDS: HumaLOG INSULIN (NovoLOG) PER UNIT SC SCH ×4 (08:37→21:00)
[2021-06-28] MEDS: ACETAMINOPHEN 500 MG TAB PO SCH ×3 (08:38→20:05)
[2021-06-28] MEDS: GABAPENTIN 100 MG CAP PO SCH ×3 (08:38→20:04)
[2021-06-28] MEDS: ASPIRIN 81 MG CHEW TABLET PO SCH (08:38)
[2021-06-28] MEDS: NICOTINE 21MG/24HR 1 EA TRANSDERMAL TD SCH (08:38)
[2021-06-28] MEDS: ATORVASTATIN 20 MG TAB PO SCH (08:38)
[2021-06-28] MEDS: HEPARIN SOD (PORCINE) 5000UNITS/ML 1ML VIAL/SYRINGE SC SCH ×2 (08:38→20:04)
[2021-06-28] MEDS: DOCUSATE SODIUM 100MG CAPSULE PO SCH ×2 (08:38→20:06)
[2021-06-28] MEDS: PANTOPRAZOLE 40MG TAB (PROTONIX) PO SCH (08:39)
[2021-06-28] MEDS: REMEDY PHYTOPLEX Z-GUARD PASTE 113GM TUBE (FROM STOREROOM PRODUCT) TOP SCH ×3 (08:39→20:05)
[2021-06-28] MEDS: DICLOFENAC EPOLAMINE 1.3 % PATCH TOP SCH ×2 (08:39→20:04)
[2021-06-28] MEDS: metFORMIN XR 500MG TAB *GLUCOPHAGE XR PO SCH (08:39)
[2021-06-28] MEDS: LACTOBACILLUS ACIDOPHILUS CAP (BACID) PO SCH ×4 (08:39→20:04)
[2021-06-28 20:00] VITALS: BP 119/67
[2021-06-28] MEDS: traZODone 25MG PER 1/2 TABLET PO SCH (20:05)
[2021-06-28] MEDS: SENNA 8.6 MG TAB (SENOKOT) PO SCH (20:05)
[2021-06-28] MEDS ORDERED: METF-838 PO (20:41)
[2021-06-28] MEDS ORDERED: ASPI81CH33 PO (20:41)
[2021-06-28] MEDS ORDERED: NICO21PAT TD (20:41)
[2021-06-28] MEDS ORDERED: ATOR1TAB21 PO (20:41)
[2021-06-28] MEDS ORDERED: GABA-1171 PO (20:41)
[2021-06-28] MEDS ORDERED: LISI10TA22 PO (20:41)
[2021-06-29 06:00] VITALS: BP 126/75
[2021-06-29] MEDS: HumaLOG INSULIN (NovoLOG) PER UNIT SC SCH ×2 (07:30→12:10)
[2021-06-29] MEDS: REMEDY PHYTOPLEX Z-GUARD PASTE 113GM TUBE (FROM STOREROOM PRODUCT) TOP SCH (09:00)
[2021-06-29] MEDS: NICOTINE 21MG/24HR 1 EA TRANSDERMAL TD SCH (09:07)
[2021-06-29] MEDS: DICLOFENAC EPOLAMINE 1.3 % PATCH TOP SCH (09:08)
[2021-06-29] MEDS: LACTOBACILLUS ACIDOPHILUS CAP (BACID) PO SCH ×2 (09:09→12:09)
[2021-06-29] MEDS: ASPIRIN 81 MG CHEW TABLET PO SCH (09:09)
[2021-06-29] MEDS: HEPARIN SOD (PORCINE) 5000UNITS/ML 1ML VIAL/SYRINGE SC SCH (09:09)
[2021-06-29] MEDS: metFORMIN XR 500MG TAB *GLUCOPHAGE XR PO SCH (09:09)
[2021-06-29] MEDS: GABAPENTIN 100 MG CAP PO SCH (09:10)
[2021-06-29] MEDS: DOCUSATE SODIUM 100MG CAPSULE PO SCH (09:10)
[2021-06-29] MEDS: PANTOPRAZOLE 40MG TAB (PROTONIX) PO SCH (09:10)
[2021-06-29] MEDS: ACETAMINOPHEN 500 MG TAB PO SCH (09:11)
[2021-06-29] MEDS: ATORVASTATIN 20 MG TAB PO SCH (09:11)
[2021-06-29 09:12] VITALS: BP 138/67
--- NOTE | 2021-07-03 16:41 | PMRDS ---
NAME: LUCIA MCNAIR [facility] WT ID#: [id number] : [id number] JOB: DAGO: 06/29/2021 ACCT: [id number] DOCTOR: TENISHA GONZALEZ MD PMR DISCHARGE SUMMARY DATE OF ADMISSION: 06/20/2021 DATE OF DISCHARGE: 06/29/2021 CHIEF COMPLAINT/DISCHARGE DIAGNOSIS: Status post right 1st ray amputation. HISTORY OF PRESENT ILLNESS: A 60-year-old male with a past medical history of bipolar, diabetes type 2 with peripheral polyneuropathy, hypertension, congenital hearing loss, schizophrenia, who presented to [facility] ([facility]) on 06/13/2021 after being seen by Dr. Skaggs for a right 1st toe wound, which was foul smelling and exudative. He was diagnosed with osteomyelitis with wound culture growing methicillin-resistant Staphylococcus aureus (MRSA), Proteus vulgaris, streptococcus group G, and Morganella morganii. He was started on intravenous (IV) vancomycin and Zosyn, underwent a 1st ray and hallux amputation on the right performed by Dr. Skaggs on 06/16/2021. He had leukocytosis, difficulty with mobility. As his weightbearing was restricted to his right lower extremity and new impairments in activities of daily living (ADL), deemed medically appropriate for discharge to acute rehabilitation unit (ARU). PAST MEDICAL HISTORY: As per history of present illness (HPI). HOSPITAL COURSE: Patient was admitted and enrolled in a comprehensive physical therapy (PT)/occupational therapy (OT) program. He received 24-hour nursing supervision, and weekly team meetings were held to discuss his progress. Out of concern for poor wound healing, patient was made primarily nonweightbearing to the right lower extremity and was able to mobilize quite well with these restrictions. Patient's wound was managed with daily dressings, and overall the maceration improved greatly. He had relatively well controlled fingersticks and was transitioned from Levemir to metformin. Patient's pain was controlled with gabapentin, Lidoderm patching for his neck pain, which was later changed to Flector patching for his neck pain. He had finished a course of cefdinir and doxycycline for his wound, and his blood pressures were relatively well controlled with blood pressure medication. He made steady gains in therapy and was deemed medically and functionally stable to return home. DISCHARGE MEDICATIONS: As per instructions. FUNCTIONAL HISTORY ON DISCHARGE: Patient was modified independent from a wheelchair level and for ADL and mobility. Thank you for this referral.
== END 2021-06-29 13:30 | disposition home health service (06) | DRG 74 ==
LOC: M PM&R 14:00
PROVIDERS: ADMIT Physical Medicine & Rehabilitation; ATTEND Physical Medicine & Rehabilitation
DX: E11.42 Type 2 diabetes mellitus with diabetic polyneuropathy (principal); F31.9 Bipolar disorder, unspecified; I10 Essential (primary) hypertension; F25.9 Schizoaffective disorder, unspecified; Z89.411 Acquired absence of right great toe; Z74.09 Other reduced mobility; Z74.1 Need for assistance with personal care; D64.9 Anemia, unspecified; H91.90 Unspecified hearing loss, unspecified ear; F17.200 Nicotine dependence, unspecified, uncomplicated; Z79.84 Long term (current) use of oral hypoglycemic drugs; Z79.82 Long term (current) use of aspirin; Z79.899 Other long term (current) drug therapy; E78.5 Hyperlipidemia, unspecified

== ENCOUNTER 2021-08-03 22:26 | Emergency (ER) | payer MEDICARE, MEDICAID ==
[~2021-08-03] VITALS: Ht 182.9 cm; Wt 72.7 kg
[~2021-08-03 22:26] MED LIST changes: +DOXY-443 PO; -DOXY1CAP62 PO
[2021-08-03 23:02] VITALS: BP 152/84
--- OUTSIDE RECORDS SUMMARY | 2021-08-04 00:08 | CCD ---
Author Author Lara Jose Richy Organization Unknown Address [address] [address] Phone Care Team Providers [employer] Front Desk Clerk Name Role Phone Richy Bermudez PCP Allergies, Adverse Reactions, Alerts No Data in Section Problem List Concept Problem Description Status Start Date Created Date Resolv ed Date Snomed Code F20.9 Schizophrenia Active 07/27/2021 Z72.0 Tobacco Use Disorder, Mild Active 07/27/2021 F12.10 Cannabis Use Disorder, Mild Active 07/27/2021 Medications No Data in Section Social History Social History Element Description Concept Effective Date Smoking Status Unknown if ever smoked [id number] Immunizations No Data in Section Vital Signs No Data in Section Procedures Date Concept Id Description Targeted Site Concept Targeted Site Concept Type 07/27/2021 [id number] [facility] Telemed E/M Lvl 3--Est pt CPT Patient has no history of implantable de vices Encounters Encounter Start Date End Date Encounter Type Description Diagnosis Di agnosis Desc Location Author First Name Author Last Name Npid Taxonomy Cod e Taxonomy Desc Phone Number Location Addr1 Location Addr2 Location [facility] Location Sta Location [facility] [id number] 07/27/2021 07/27/2021 [id number] [facility] Telemed E/M Lvl 3--Est p t F20.9 Schizophrenia, unspecified [facility] Lara Lockhart [phone] [id number] Nurse Practitioner [phone] [address], [place] [address] [facility] [address] Plan of Treatment No Data in Section Lab Results No Data in Section Instructions No Data in Section Functional Cognitive Status No Data in Section Insurance Providers Insurance Id Policy Effective Date Policy Thru Date Company N hanna [id number] 2020 MEDICARE [id number] MEDICAID
--- OUTSIDE RECORDS SUMMARY | 2021-08-04 00:08 | CCD ---
Author Organization Unknown Address [address] [place] [address] Phone [phone] Care Team Providers Care Lace Burn Out Tender Name Role Phone AnsariZohaib Unavailable Unavailable Allergies Code Code System Name Reaction Severity Status Onset NKDA Medications Name Status Start Date Stop Date amiloride 5 mg tablet TAKE ONE TABLET BY MOUTH TWICE A DAY Active No t available aripiprazole 10 mg tablet Completed 2020 aspirin 81 mg chewable tablet CHEW ONE TABLET BY MOUTH EVERY DAY Active Not available atorvastatin 20 mg tablet Active Not av ailable atorvastatin 40 mg tablet TAKE ONE TABLET BY MOUTH ONCE DAILY Active Not available BD Ultra-Fine Mini Pen Needle 31 gauge x 3/16" Active Not available cefdinir 300 mg capsule TAKE TWO CAPSULES BY MOUTH EVERY DAY Active No t available cephalexin 500 mg capsule Active Not av ailable clotrimazole 1 % topical cream Active N ot available docusate sodium 100 mg capsule TAKE ONE CAPSULE BY MOUTH TWICE A DAY Active N ot available doxycycline monohydrate 100 mg capsule TAKE ONE CAPSULE BY MOUTH EVERY 12 HOURS Active Not available fluconazole 100 mg tablet TAKE ONE TABLET BY MOUTH EVERY MORNING AT 9 00AM FOR RASH Active Not available gabapentin 100 mg capsule TAKE ONE CAPSULE BY MOUTH THREE TIMES A DAY Active Not available Glucocard Expression strips Check BG qAM and up to 3 times per day as needed. Active Not available Invega Sustenna 234 mg/1.5 mL intramuscular syringe Active Not available ketoconazole 2 % topical cream APPLY TOPICALLY ONCE DAILY Active Not availabl e Levemir FlexTouch U-100 Insulin 100 unit /mL (3 mL) subcutaneous pen INJECT 45 UNITS UNDER THE SKIN AT BEDTIME Active Not available Levemir U-100 Insulin 100 unit/mL subcut aneous solution INJECT 50 UNITS UNDER THE SKIN AT BEDTIME FOR DIABETES Active Not available lidocaine 5 % topical patch APPLY 1 PATCH BY TOPICAL ROUTE ONCE DAILY (MAY WEAR UP TO 12HOURS.) Active Not available lisinopril 10 mg tablet Active Not avai lable metformin ER 500 mg tablet,extended rele ase 24 hr TAKE ONE TABLET BY MOUTH EVERY DAY Active Not available nicotine 14 mg/24 hr daily transdermal p atch APPLY ONE PATCH TO THE SKIN EVERY DAY Active N ot available nicotine 21 mg/24 hr daily transdermal p atch APPLY 1 PATCH AND CHANGE DAILY Active Not avai lable OneTouch Delica Plus Lancet 30 gauge TEST FOUR TIMES A DAY Active Not available risperidone 2 mg tablet Active Not avai lable Problems Name Status Onset Date Source Screening for Malignant Neoplasm of Prostate Active 09/2018 History Endocrine/metabolic Screening Active 12/21/2018 Hi story Foot Ulcer Due to Type 2 Diabetes Mellitus Active 12/21 History Raised Prostate Specific Antigen Active 03/05/2019 History Screening Procedure Active 03/05/2019 History Ulcer of Foot Active 10/13/2019 History Thyroid Function Tests Abnormal Active 11/11/2019 History Hearing Loss Active 04/10/2021 Homeless Active 05/01/2021 Constipation Active 07/16/2021 Schizoaffective Disorder Active 08/03/2021 Tobacco User Active 08/03/2021 Procedures Notes: Ear Surgery Results Lab Results Date Name Specimen Result Interpretation Description Value Range Status Address 07/04/2021 Hemoglobin a1C, Fingerstick ABNORMAL Hba1C 8.5 % Final [facility]: [address] [facility] 06/29/2021 Glucose, Fingerstick, Blood Normal Bedside Glucose 104 mg/dL 80-115 mg/dL [facility]: [address] [facility] 06/29/2021 Glucose, Fingerstick, Blood High Bedside Glucose 146 mg/dL 80- 115 mg/dL [facility]: [address] [facility] 06/28/2021 Glucose, Fingerstick, Blood High Bedside Glucose 120 mg/dL 80- 115 mg/dL [facility]: [address] 0 [facility] 06/28/2021 Glucose, Fingerstick, Blood High Bedside Glucose 173 mg/dL 80- 115 mg/dL [facility]: [address] 0 [facility] 06/28/2021 Glucose, Fingerstick, Blood Low Bedside Glucose 71 mg/dL 80-115 mg/dL [facility]: 83 0 [facility] 06/28/2021 Glucose, Fingerstick, Blood High Bedside Glucose 123 mg/dL 80- 115 mg/dL [facility]: [address] 0 [facility] 06/27/2021 Glucose, Fingerstick, Blood High Bedside Glucose 144 mg/dL 80- 115 mg/dL [facility]: [address] 0 [facility] 06/27/2021 CBC W/ Auto Diff Normal White Blood Count 7.3 10 4.0-10.0 10 [facility]: [address] [facility] Normal Red Blood Count 4.57 10 4.30-6.10 10 [facility]: [address] [facility] Low Hemoglobin 12.6 g/dL 13.5-17.5 g/dL [facility]: [address] [facility] Low Hematocrit 39.0 % 42.0-52.0 % [facility]: [address] [facility] Normal Mean Corpuscular Volume 85.3 fL 80.0 -96.0 fL [facility]: [address] [facility] Normal Mean Corpuscular Hemoglobin 27.6 pg 27.0-33.0 pg [facility]: [address] [facility] Normal Mean Corpuscular HGB Conc 32.3 g/dL 32.0-36.5 g/dL [facility]: [address] [facility] Normal Red Cell Distribution Width 13.5 % 1 1.5-14.5 % [facility]: [address] [facility] Normal Platelet Count, Automated 225 10 150 -450 10 [facility]: [address] [facility] Normal Neutrophils % 50.2 % 36.0-66.0 % [facility]: [address] [facility] Normal Lymph % 38.1 % 24.0-44.0 % [facility]: [address] [facility] Normal Frio % 6.7 % 2.0-8.0 % [facility]: [address] [facility] High Eos % 4.2 % 0.0-3.0 % [facility]: [address] [facility] Normal Baso % 0.5 % 0.0-1.0 % [facility]: [address] [facility] Normal Immature Granulocyte % 0.3 % 0-3.0 % [facility]: [address] [facility] Normal Nucleated Red Blood Cell % 0.0 % 0- 0 % [facility]: [address] [facility] Normal Neutrophils # 3.7 10 1.5-8.5 10 [facility] [address] [facility] Normal Lymph # 2.8 10 1.5-5.0 10 Health system: [address] [facility] Normal Frio # 0.5 10 0.0-0.8 10 [facility]: [address] [facility] Normal Eos # 0.3 10 0.0-0.5 10 [facility]: [address] [facility] Normal Baso # 0.0 10 0.0-0.2 10 [facility]: [address] [facility] 06/27/2021 BMP, Serum or Plasma High Glucose, Fastin g 161 mg/dL 70-100 mg/dL [facility]: [address] 0 [facility] High Blood Urea Nitrogen 19 mg/dL 7-18 mg /dL [facility]: 0 [facility] Normal Creatinine for GFR 1.05 mg/dL 0.70-1 .30 mg/dL [facility]: 0 [facility] Normal Glomerular Filtration Rate > 60.0 >4 9 [facility]: [address] [facility] Normal Sodium Level 137 mEq/L 136-145 mEq/L [facility]: 0 [facility] Normal Potassium Serum 4.4 mEq/L 3.5-5.1 mE q/L [facility]: 0 [facility] Normal Chloride Level 106 mEq/L 98-107 mEq/ L [facility]: 0 [facility] Normal Carbon Dioxide Level 25 mEq/L 21-32 mEq/L [facility]: 0 [facility] Low Anion Gap 6 mEq/L 8-16 mEq/L [facility]: [address] [facility] Normal Calcium Level 9.4 mg/dL 8.8-10.2 mg/ dL [facility]: [address] [facility] 06/27/2021 Glucose, Fingerstick, Blood High Bedside Glucose 168 mg/dL 80- 115 mg/dL [facility]: [address] 0 [facility] 06/27/2021 Glucose, Fingerstick, Blood Normal Bedside Glucose 86 mg/dL 80- 115 mg/dL [facility]: [address] 0 [facility] 06/27/2021 Glucose, Fingerstick, Blood High Bedside Glucose 165 mg/dL 80- 115 mg/dL [facility]: [address] 0 [facility] 06/26/2021 Glucose, Fingerstick, Blood Normal Bedside Glucose 105 mg/dL 80-115 mg/dL [facility]: [address] 0 [facility] 06/26/2021 Glucose, Fingerstick, Blood High Bedside Glucose 138 mg/dL 80- 115 mg/dL [facility]: [address] 0 [facility] 06/26/2021 Glucose, Fingerstick, Blood Normal Bedside Glucose 108 mg/dL 80-115 mg/dL [facility]: [address] 0 [facility] 06/26/2021 Glucose, Fingerstick, Blood High Bedside Glucose 179 mg/dL 80- 115 mg/dL [facility]: [address] 0 [facility] 06/25/2021 Glucose, Fingerstick, Blood High Bedside Glucose 135 mg/dL 80- 115 mg/dL [facility]: [address] 0 [facility] 06/25/2021 CBC W/ Auto Diff Normal White Blood Count 6.2 10 4.0-10.0 10 [facility]: [address] [facility] Low Red Blood Count 4.24 10 4.30-6.10 10 [facility]: [address] [facility] Low Hemoglobin 11.5 g/dL 13.5-17.5 g/dL [facility]: [address] [facility] Low Hematocrit 36.1 % 42.0-52.0 % [facility]: [address] [facility] Normal Mean Corpuscular Volume 85.1 fL 80.0 -96.0 fL [facility]: [address] [facility] Normal Mean Corpuscular Hemoglobin 27.1 pg 27.0-33.0 pg Final [facility]: [address] [facility] Low Mean Corpuscular HGB Conc 31.9 g/dL 32.0-36.5 g/dL Final [facility]: [address] [facility] Normal Red Cell Distribution Width 13.5 % 1 1.5-14.5 % [facility]: [address] [place] [address] Normal Platelet Count, Automated 227 10 150 -450 10 [facility]: 0 [facility] Normal Neutrophils % 47.4 % 36.0-66.0 % [facility]: [address] [facility] Normal Lymph % 40.2 % 24.0-44.0 % [facility]: [address] [facility] Normal Frio % 6.6 % 2.0-8.0 % [facility]: 0 [facility] High Eos % 4.7 % 0.0-3.0 % [facility]: [address] [facility] Normal Baso % 0.8 % 0.0-1.0 % [facility]: [address] [facility] Normal Immature Granulocyte % 0.3 % 0-3.0 % [facility]: [address] [facility] Normal Nucleated Red Blood Cell % 0.0 % 0- 0 % [facility]: [address] [facility] Normal Neutrophils # 2.9 10 1.5-8.5 10 [facility]: [address] [facility] Normal Lymph # 2.5 10 1.5-5.0 10 Health system: [address] [facility] Normal Frio # 0.4 10 0.0-0.8 10 [facility]: [address] [facility] Normal Eos # 0.3 10 0.0-0.5 10 [facility]: [address] [facility] Normal Baso # 0.1 10 0.0-0.2 10 [facility]: [address] [facility] 06/25/2021 BMP, Serum or Plasma High Glucose, Fastin g 125 mg/dL 70-100 mg/dL [facility]: [address] 0 [facility] High Blood Urea Nitrogen 24 mg/dL 7-18 mg /dL [facility]: 0 [facility] Normal Creatinine for GFR 0.97 mg/dL 0.70-1 .30 mg/dL [facility]: [address] [facility] Normal Glomerular Filtration Rate > 60.0 >4 9 [facility]: [address] [facility] Normal Sodium Level 139 mEq/L 136-145 mEq/L [facility]: [address] [facility] Normal Potassium Serum 4.0 mEq/L 3.5-5.1 mE q/L [facility]: [address] [facility] Normal Chloride Level 107 mEq/L 98-107 mEq/ L [facility]: [address] [facility] Normal Carbon Dioxide Level 28 mEq/L 21-32 mEq/L [facility]: 0 [facility] Low Anion Gap 4 mEq/L 8-16 mEq/L [facility]: [address] [facility] Low Calcium Level 8.7 mg/dL 8.8-10.2 mg/ dL [facility]: [address] [facility] 06/25/2021 Glucose, Fingerstick, Blood High Bedside Glucose 123 mg/dL 80- 115 mg/dL [facility]: [address] 0 [facility] 06/25/2021 Glucose, Fingerstick, Blood Normal Bedside Glucose 98 mg/dL 80- 115 mg/dL [facility]: [address] 0 [facility] 06/25/2021 Glucose, Fingerstick, Blood High Bedside Glucose 145 mg/dL 80- 115 mg/dL [facility]: [address] 0 [facility] 06/24/2021 Glucose, Fingerstick, Blood High Bedside Glucose 128 mg/dL 80- 115 mg/dL [facility]: [address] 0 [facility] 06/24/2021 Glucose, Fingerstick, Blood High Bedside Glucose 119 mg/dL 80- 115 mg/dL [facility]: [address] 0 [facility] 06/24/2021 Glucose, Fingerstick, Blood High Bedside Glucose 154 mg/dL 80- 115 mg/dL [facility]: [address] 0 [facility] 06/24/2021 Glucose, Fingerstick, Blood High Bedside Glucose 138 mg/dL 80- 115 mg/dL [facility]: [address] 0 [facility] 06/23/2021 Glucose, Fingerstick, Blood Normal Bedside Glucose 110 mg/dL 80-115 mg/dL [facility]: [address] 0 [facility] 06/23/2021 Glucose, Fingerstick, Blood High Bedside Glucose 158 mg/dL 80- 115 mg/dL [facility]: [address] [facility] 06/23/2021 Glucose, Fingerstick, Blood Normal Bedside Glucose 85 mg/dL 80- 115 mg/dL [facility]: [address] 0 [facility] 06/23/2021 Glucose, Fingerstick, Blood High Bedside Glucose 191 mg/dL 80- 115 mg/dL [facility]: [address] 0 [facility] 06/22/2021 Glucose, Fingerstick, Blood High Bedside Glucose 166 mg/dL 80- 115 mg/dL [facility]: [address] 0 [facility] 06/22/2021 Glucose, Fingerstick, Blood Normal Bedside Glucose 99 mg/dL 80- 115 mg/dL [facility]: [address] [facility] 06/22/2021 Glucose, Fingerstick, Blood High Bedside Glucose 149 mg/dL 80- 115 mg/dL [facility]: [address] [facility] Past Encounters 08/03/2021 Hearing Loss; Foot Ulcer Due to Type 2 Diabetes Mellitus; Schizoaffective Disorder; Tobacco User Zohaib Ansari MD: [address] [place] [phone], Ph. 07/04/2021 Screening for Malignant Neoplasm of Colon; Tobacco User; Amputated Toe; Foot Ulcer Due to Type 2 Diabetes Mellitus; Hearing Loss; Chronic Neck Pain Zohaib Ansari MD: [address] [place] [phone], Ph. 04/10/2021 Foot Ulcer Due to Type 2 Diabetes Mellitus; Type 2 Diabetes Mellitus without Complication; Hearing Loss Zohaib Ansari MD: [address] [place] [phone], Ph. 04/04/2021 Administration of SARS-CoV-2 Antigen Vaccine Zohaib Ansari MD: [address] [place] [phone], Ph. 12/27/2020 Administration of SARS-CoV-2 Antigen Vaccine [facility]: [address] [place] [phone], Ph. Social History Tobacco Smoking Status Heavy Tobacco Smoker (1 pack per day) Vaccine List Vaccine Type COVID-19, mRNA, LNP-S, PF, 100 mcg/0.5 m L dose (Moderna) 10.5 mL 10.5 mL influenza, unspecified formulation 10/13/2019 Plan of Care Reminders Provider Appointments None recorded. Lab None recorded. Referral None recorded. Procedures None recorded. Surgeries None recorded. Imaging None recorded. Vitals 08/03/2021 11:00AM ESTABLISHED [id number] Height Weight BMI Blood Pressure 117/64 mm[Hg] 07/04/2021 12:40PM HOSPITAL DISCHARGE Height Weight BMI Blood Pressure 109/71 mm[Hg] 04/10/2021 10:00AM HOSPITAL DISCHARGE Weight Blood Pressure 226 lbs 4 oz 126/80 mm[Hg] 11/11/2019 Height Weight BMI Blood Pressure 72 in 234 lbs 31.85 kg/m2 106/65 mm[Hg] 10/13/2019 Height Weight BMI Blood Pressure 72 in 233 lbs 31.71 kg/m2 124/81 mm[Hg] 03/05/2019 Height Weight BMI Blood Pressure 72 in 229 lbs 2.08 oz 31.19 kg/m2 130/78 mm[H g] 12/21/2018 Height Weight BMI Blood Pressure 72 in 229 lbs 8 oz 31.24 kg/m2 132/83 mm[Hg]
--- OUTSIDE RECORDS SUMMARY | 2021-08-04 00:08 | CCD | Continuity of Care Document ---
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 Moncio Saxena DPM Onset: 10/12/2019 Onychomycosis Aman Saxena DPM Onset: 10/12/2019 Type 1 diabetes mellitus with diabetic polyneuropathy Aman Saxena DPM Onset: 10/24/2019 Pressure ulcer of right foot Aman Saxena DPM Onset: 07/2021 Resolved Problems Convalescence after surgery Aman Saxena DPM Onset: 03/2021 Resolved: 05/05/2021 Social History Type Date Description Comments Sex Unknown ETOH Use Denies alcohol use Tobacco Use Start: Unknown Patient is a current smoker, smo kes every day Allergies and adverse reactions Description No Known Drug Allergies Medications Active Medications SIG Qnty Indications Ordering Provide r Date Cephalexin 500mg Tablets 1 by mouth twice a day 20tabs Aman Saxena DPM 03/27/2021 Stool Softener 100mg Capsules Take Two Capsules By Mouth Twice A Day as Needed For Constipation Unknown Metformin HCL 1000mg Tablets Dori Medina RPA Metformin HCL ER 500mg Tablets ER 24HR Take Two Tablets By Mouth Twice A Day Unknown Onetouch Verio Flex Blood Glucose Monito ring System w/Device Kit Use as Directed Unknown Novolog Flexpen 100U nit/ML Solution Pen-Inject Inject 2 Units For Sugars 100 150 Then Per MD Instruct ions On Sliding Scale Unknown Xiami Radiotouch Ultra 2 w/Device Kit Use as Directed Unknown Onetouch Ultra Blue Strips Test Four Times A Day Unknown Onetouch Delica Lancets Extra Fine 33G Misc Use as Directed Unknown Fluticasone Propionate 50mcg/Act Suspension Instill Two Sprays In Each Nostril AT Night Unknown Ciprofloxacin HCL 500mg Tablets Take One Tablet By Mouth Twice A Day Unknown Senna 8.6mg Tablets Take Two Tablets [...] Information Available Procedures Date Code Description Status 06/14/2021 69374 Hospital Subsequent Care Level 2 Completed 06/14/2021 99327 Ostectomy Partial Excision 5TH M etatarsal Head (Bunionette) Completed 06/13/2021 84280 Office/Outpatient Established Lo w MDM 20-29 Min Completed 05/24/2021 16078 Debridement 6-10 Nails Electric Completed 05/24/2021 57812 Debridement Skin/Tissue Complete d 04/27/2021 81280 Debridement Skin/Tissue Complete d 03/07/2021 21765 Hospital Subsequent Care Level 2 Completed 03/03/2021 95709 Hospital Subsequent Care Level 3 Completed 02/26/2021 50364 Hospital Subsequent Care Level 3 Completed 02/20/2021 59278 Debridement Tissue/Muscle/Bone C ompleted 02/19/2021 57268 Hospital Subsequent Care Level 3 Completed 01/30/2021 66462 Debridement 6-10 Nails Electric Completed 01/30/2021 71404 Paring/Cut Benign Lesion 2 To 4 Completed 01/30/2021 99857 Debridement Skin/Tissue Complete d Medical Devices Description No Information Available Encounters Type Date Location Provider Dx Diagnosis Office Visit 06/13/2021 2:30p [place] Aman Saxena DPM M86.172 Other acute osteomyelitis, left ankle and foot E10.42 Type 1 diabetes mellitus wit h diabetic polyneuropathy Office Visit 04/10/2021 1:15p [place] [facility] Aman Saxena DPM Z48.89 Encounter for other specified surgical aftercare Office Visit 04/03/2021 1:15p [place] [facility] Aman Saxena DPM Z48.89 Encounter for other specified surgical aftercare Office Visit 03/27/2021 1:15p [place] [facility] Aman Saxena DPM Z48.89 Encounter for other specified surgical aftercare Assessments Date Code Description Provider 06/15/2021 L03.031 Cellulitis of right toe Aman Saxena DPM 06/15/2021 E10.42 Type 1 diabetes mellitus with di abetic polyneuropathy Aman Saxena DPM 06/15/2021 M86.171 Other acute osteomyelitis, right ankle and foot Aman Saxena DPM 06/14/2021 L03.031 Cellulitis of right toe Aman Saxena DPM 06/14/2021 E10.42 Type 1 diabetes mellitus with di abetic polyneuropathy Aman Saxena DPM 06/14/2021 M86.171 Other acute osteomyelitis, right ankle and foot Aman Saxena DPM 06/13/2021 M86.172 Other acute osteomyelitis, left ankle and foot Aman Saxena DPM 06/13/2021 E10.42 Type 1 diabetes mellitus with di abetic polyneuropathy Aman Saxena, DPM 05/24/2021 E10.621 Type 1 diabetes mellitus with fo ot ulcer Aman Saxena, DPM 05/24/2021 L89.892 Pressure ulcer of other site, st age 2 Aman Saxena, DPM 05/24/2021 B35.1 Tinea unguium Aman Saxena, DPM 05/24/2021 E10.42 Type 1 diabetes mellitus with di abetic polyneuropathy Aman Saxena, DPM 04/27/2021 E11.621 Type 2 diabetes mellitus with fo ot ulcer Aman Saxena, DPM 04/27/2021 L89.892 Pressure ulcer of other site, st age 2 Aman Saxena, DPM 04/10/2021 Z48.89 Encounter for other specified hylton rgical aftercare Aman Saxena, DPM 04/03/2021 Z48.89 Encounter for other specified hylton rgical aftercare Aman Saxena, DPM 03/27/2021 Z48.89 Encounter for other specified hylton rgical aftercare Aman Saxena, DPM 03/07/2021 E11.621 Type 2 diabetes mellitus with fo ot ulcer Aman Saxena, DPM 03/03/2021 E11.621 Type 2 diabetes mellitus with fo ot ulcer Aman Saxena, DPM 03/03/2021 L03.115 Cellulitis of right lower limb A norma Saxena, DPM 02/26/2021 E11.621 Type 2 diabetes mellitus with fo ot ulcer Aman Saxena, DPM 02/26/2021 L03.115 Cellulitis of right lower limb A norma Saxena, DPM 02/26/2021 M86.171 Other acute osteomyelitis, right ankle and foot Aman Saxena, DPM 02/20/2021 M86.171 Other acute osteomyelitis, right ankle and foot Aman Saxena, DPM 02/20/2021 E11.621 Type 2 diabetes mellitus with fo ot ulcer Aman Saxena, DPM 02/20/2021 L03.115 Cellulitis of right lower limb A norma Saxena DPM 02/19/2021 L03.115 Cellulitis of right lower limb A norma Saxena DPM 02/19/2021 E11.621 Type 2 diabetes mellitus with fo ot ulcer Aman Saxena DPM 01/30/2021 E10.621 Type 1 diabetes mellitus with fo ot ulcer Aman Saxena DPM 01/30/2021 L89.892 Pressure ulcer of other site, st age 2 Aman Saxena DPM 01/30/2021 B35.1 Tinea unguium Aman Saxena DPM 01/30/2021 E10.42 Type 1 diabetes mellitus with di abetic polyneuropathy Aman Saxena DPM 01/30/2021 L84 Corns and callosities Aman Saxena DPM Plan of Treatment Future Appointment(s):* 08/06/2021 1:15 pm - Aman Saxena DPM at [facility] Functional Status Description No Information Available Mental Status Description No Information Available Referrals Description No Information Available
--- OUTSIDE RECORDS SUMMARY | 2021-08-04 00:08 | CCD | Continuity of Care Document ---
Author Author Jose SAXENA DPM Organization Unknown Address [address] [place] [address], [facility] 2 [place] [address] Phone [phone] Care Team Providers Care Natural Resources Extension Educator Name Role Phone Tammi Guzmán MD AUTM [phone] Problems Active Problems Provider Date Multiple complications [...] MD Instruct ions On Sliding Scale Unknown Extricomtouch Ultra 2 w/Device Kit Use as Directed [...] Available Procedures Date Code Description Status 06/14/2021 46376 Hospital Subsequent Care Level 2 Completed 06/14/2021 59371 Ostectomy Partial Excision 5TH M etatarsal Head (Bunionette) Completed 06/13/2021 13170 Office/Outpatient Established Lo w MDM 20-29 Min Completed 05/24/2021 31139 Debridement 6-10 Nails Electric Completed 05/24/2021 39500 Debridement Skin/Tissue Complete d 04/27/2021 54627 Debridement Skin/Tissue Complete d 03/07/2021 79262 Hospital Subsequent Care Level 2 Completed 03/03/2021 76315 Hospital Subsequent Care Level 3 Completed 02/26/2021 15007 Hospital Subsequent Care Level 3 Completed 02/20/2021 16778 Debridement Tissue/Muscle/Bone C ompleted 02/19/2021 40437 Hospital Subsequent Care Level 3 Completed 01/30/2021 17474 Debridement 6-10 Nails Electric Completed 01/30/2021 09864 Paring/Cut Benign Lesion 2 To 4 Completed 01/30/2021 72085 Debridement Skin/Tissue Complete d Medical Devices Description No Information Available Encounters Type Date Location Provider Dx Diagnosis Office Visit 07/06/2021 1:15p [place] [facility] Aman Saxena DPM Z48.89 Encounter for other specified surgical aftercare Office Visit 06/13/2021 2:30p [place] [facility] Aman Saxena DPM M86.172 Other acute osteomyelitis, left ankle and foot E10.42 Type 1 diabetes mellitus wit h diabetic polyneuropathy Office Visit 04/10/2021 1:15p [place] [facility] Aman Saxena DPM Z48.89 Encounter for other specified surgical aftercare Office Visit 04/03/2021 1:15p [place] [facility] Aman Saxena DPM Z48.89 Encounter for other specified surgical aftercare Office Visit 03/27/2021 1:15p [place] [facility] Aman Saxena DPM Z48.89 Encounter for other specified surgical aftercare Assessments Date Code Description Provider 07/06/2021 Z48.89 Encounter for other specified [place] rg[place] aftercare Aman Saxena DPM 06/15/2021 L03.031 Cellulitis of right toe Aman Saxena DPM 06/15/2021 E10.42 Type 1 diabetes mellitus with di abetic polyneuropathy Aman Saxena DPM 06/15/2021 M86.171 Other acute osteomyelitis, right ankle and foot mAan Saxena DPM 06/14/2021 L03.031 Cellulitis of right toe Aman Saxena DPM 06/14/2021 E10.42 Type 1 diabetes mellitus with di abetic polyneuropathy Aman Saxena DPM 06/14/2021 M86.171 Other acute osteomyelitis, right ankle and foot Aman Saxena, DPM 06/13/2021 M86.172 Other acute osteomyelitis, left ankle and foot Aman Saxena, DPM 06/13/2021 E10.42 Type 1 diabetes mellitus [...] osteomyelitis, right ankle and foot Aman Saxena, ALAN 02/20/2021 E11.621 Type 2 diabetes mellitus with fo ot ulcer Aman Saxena, ALAN 02/20/2021 L03.115 Cellulitis of right lower limb A norma Saxena, ALAN 02/19/2021 L03.115 Cellulitis of right lower limb A norma Saxena, ALAN 02/19/2021 E11.621 Type 2 diabetes mellitus with fo ot ulcer Aman Saxena, ALAN 01/30/2021 E10.621 Type 1 diabetes mellitus with fo ot ulcer Aman Saxena, ALAN 01/30/2021 L89.892 Pressure ulcer of other site, st age 2 Aman Saxena DPM 01/30/2021 B35.1 Tinea unguium Aman Saxena DPM 01/30/2021 E10.42 Type 1 diabetes mellitus with di abetic polyneuropathy Aman Saxena DPM 01/30/2021 L84 Corns and callosities Aman Saxena DPM Plan of Treatment Future Appointment(s):* 08/06/2021 1:15 pm - Aman Saxena DPM at [facility] Functional Status Description No Information Available Mental Status Description No Information Available Referrals Description No Information Available
--- OUTSIDE RECORDS SUMMARY | 2021-08-04 00:08 | CCD | Continuity of Care Document ---
Author Author Jose SAXENA DPM Organization Unknown Address [address] [place] [address], [facility] 2 [place] [address] Phone [phone] Care Team Providers Care Fixing Carpenter Name Role Phone Tammi Guzmán MD AUTM [phone] Problems Active Problems Provider Date Multiple complications [...] MD Instruct ions On Sliding Scale Unknown PANOSOLtouch Ultra 2 w/Device Kit Use as Directed [...] Available Procedures Date Code Description Status 06/14/2021 18112 Hospital Subsequent Care Level 2 Completed 06/14/2021 20987 Ostectomy Partial Excision 5TH M etatarsal Head (Bunionette) Completed 06/13/2021 71239 Office/Outpatient Established Lo w MDM 20-29 Min Completed 05/24/2021 67730 Debridement 6-10 Nails Electric Completed 05/24/2021 38104 Debridement Skin/Tissue Complete d 04/27/2021 33498 Debridement Skin/Tissue Complete d 03/07/2021 53913 Hospital Subsequent Care Level 2 Completed 03/03/2021 95281 Hospital Subsequent Care Level 3 Completed 02/26/2021 28903 Hospital Subsequent Care Level 3 Completed 02/20/2021 31630 Debridement Tissue/Muscle/Bone C ompleted 02/19/2021 03212 Hospital Subsequent Care Level 3 Completed 01/30/2021 52593 Debridement 6-10 Nails Electric Completed 01/30/2021 57505 Paring/Cut Benign Lesion 2 To 4 Completed 01/30/2021 57227 Debridement Skin/Tissue Complete d Medical Devices Description No Information Available Encounters Type Date Location Provider Dx Diagnosis Office Visit 06/13/2021 2:30p [place] [facility] Aman Saxena DPM M86.172 Other acute osteomyelitis, left ankle and foot E10.42 Type 1 diabetes mellitus wit h diabetic polyneuropathy Office Visit 04/10/2021 1:15p [place] [facility] Aman Saxena DPM Z48.89 Encounter for other specified surgical aftercare Office Visit 04/03/2021 1:15p [place] [facility] Aman Saxena DPM Z48.89 Encounter for other specified surgical aftercare Office Visit 03/27/2021 1:15p [place] [facility] Aman Saxena DPM Z48.89 Encounter for [...] L03.115 Cellulitis of right lower limb A nomra Saxena, DPM 02/26/2021 M86.171 Other acute osteomyelitis, [...] Saxena DPM Plan of Treatment Future Appointment(s):* 07/20/2021 1:15 pm - Aman Saxena DPM at [facility] Functional Status Description No Information Available Mental Status Description No Information Available Referrals Description No Information Available
--- OUTSIDE RECORDS SUMMARY | 2021-08-04 00:08 | CCD | Continuity of Care Document ---
Author Author Jose SAXENA DPM Organization Unknown Address [address] [place] [address], [facility] 2 [place] [address] Phone [phone] Care Team Providers Care Windows Mobile Developer Name Role Phone Tammi Guzmán MD AUTM [phone] Problems Active Problems Provider Date Multiple complications [...] MD Instruct ions On Sliding Scale Unknown RegulatoryBindertouch Ultra 2 w/Device Kit Use as Directed [...] Available Procedures Date Code Description Status 06/14/2021 92143 Hospital Subsequent Care Level 2 Completed 06/14/2021 27803 Ostectomy Partial Excision 5TH M etatarsal Head (Bunionette) Completed 06/13/2021 22202 Office/Outpatient Established Lo w MDM 20-29 Min Completed 05/24/2021 06358 Debridement 6-10 Nails Electric Completed 05/24/2021 33790 Debridement Skin/Tissue Complete d 04/27/2021 46098 Debridement Skin/Tissue Complete d 03/07/2021 66927 Hospital Subsequent Care Level 2 Completed 03/03/2021 41310 Hospital Subsequent Care Level 3 Completed 02/26/2021 53833 Hospital Subsequent Care Level 3 Completed 02/20/2021 41868 Debridement Tissue/Muscle/Bone C ompleted 02/19/2021 32683 Hospital Subsequent Care Level 3 Completed 01/30/2021 80918 Debridement 6-10 Nails Electric Completed 01/30/2021 04581 Paring/Cut Benign Lesion 2 To 4 Completed 01/30/2021 26549 Debridement Skin/Tissue Complete d Medical Devices Description No Information Available Encounters Type Date Location Provider Dx Diagnosis Office Visit 06/13/2021 2:30p [place] [facility] Aman Saxena DPM M86.172 Other acute osteomyelitis, left ankle and foot E10.42 Type 1 diabetes mellitus wit h diabetic polyneuropathy Office Visit 04/10/2021 1:15p [place] [facility] Aman Saxena DPM Z48.89 Encounter for other specified surgical aftercare Office Visit 04/03/2021 1:15p [place] [facility] Aman Saxena DPM Z48.89 Encounter for other specified surgical aftercare Office Visit 03/27/2021 1:15p [place] [facility] Aman Saxena DPM Z48.89 Encounter for [...] Encounter for other specified hylton rgical aftercare Aamn Saxena, DPM 03/27/2021 Z48.89 Encounter for other [...] Cellulitis of right lower limb A norma Saexna, DPM 02/26/2021 M86.171 Other acute osteomyelitis, right [...] - Aman Saxena DPM at [facility] Functional Status Description No Information Available Mental Status Description No Information Available Referrals Description No Information Available
--- OUTSIDE RECORDS SUMMARY | 2021-08-04 00:08 | CCD ---
Author Author Jose Ng Organization [facility] Address Unknown Phone Unavailable Care Team Providers Care Family Consumer Scientist Name Role Phone Yamileth Ng PCP Unavailable Allergies, Adverse Reactions, Alerts Allergy Substance Code C odeSystem Reaction Severity Critic ality Status Start Date Moderate Medications Medication Medication Code Medication CodeSystem Start Date Stop Date Route Dose Status Fill Instructions RxNorm Problems Problem Name Code CodeSy stem Alternate Code Alternate CodeSystem Start Date End Date Status Narrative Paranoid schizophrenia 23498559 SNOMED-CT 2021-05-09 Active Relevant diagnostic tests/laboratory data Narrative No Information Procedures Procedure Name Code Code System Target Site Date of Procedure Status Service Delivery Location Device Cod e Device Name Device UID SNOMED-CT () 2021-05-24 [address] [facility] [address] [place], [place], [id number] SNOMED-CT () 2021-05-24 [address] [facility] [address] [place], [place], [address] [id number] SNOMED-CT () 2021-06-22 completed [facility] [address] [place], [place], [id number] [id number] SNOMED-CT () 2021-06-22 [address] [facility] [address] [place], [place], [address] [id number] SNOMED-CT () 2021-07-23 [address] [facility] [address] [place], [place], [address] [id number] SNOMED-CT () 2021-07-23 [address] [facility] [address] [place], [place], [address] [id number] SNOMED-CT () 2021-05-09 [address] [facility] [address] [place], [place], [address] [id number] Encounters/Encounter Diagnoses Encounter Name Encounter Code Diagnosis Code Diagnosis Name Diagnosis CodeSystem Date of Diagnosis Service Delivery L ocation non-billable 73729 43136 009 Paranoid schizophrenia SNOMED-CT 2021-07-23 [facility] , , , Vital Signs No Information Social History Element Description Description Start Date End Date Code CodeSystem AdditionalInfo SexAssignedAtBirth Male 1960 M AdministrativeGender Hospital Discharge Instructions * Reason For Referral Medical Equipment * FDA Assessments *
--- OUTSIDE RECORDS SUMMARY | 2021-08-04 00:08 | CCD | Continuity of Care Document ---
Author Author Jose SAXENA DPM Organization Unknown Address [address] [place] [address], [facility] 2 [place] [address] Phone [phone] Care Team Providers Care Needle Molder Name Role Phone Tammi Guzmán MD AUTM [phone] Problems Active Problems Provider Date Multiple complications [...] MD Instruct ions On Sliding Scale Unknown Njinitouch Ultra 2 w/Device Kit Use as Directed [...] Available Procedures Date Code Description Status 06/14/2021 28066 Hospital Subsequent Care Level 2 Completed 06/14/2021 05452 Ostectomy Partial Excision 5TH M etatarsal Head (Bunionette) Completed 06/13/2021 59702 Office/Outpatient Established Lo w MDM 20-29 Min Completed 05/24/2021 18930 Debridement 6-10 Nails Electric Completed 05/24/2021 81681 Debridement Skin/Tissue Complete d 04/27/2021 03596 Debridement Skin/Tissue Complete d 03/07/2021 88042 Hospital Subsequent Care Level 2 Completed 03/03/2021 96972 Hospital Subsequent Care Level 3 Completed 02/26/2021 75373 Hospital Subsequent Care Level 3 Completed 02/20/2021 49136 Debridement Tissue/Muscle/Bone C ompleted 02/19/2021 55469 Hospital Subsequent Care Level 3 Completed 01/30/2021 76060 Debridement 6-10 Nails Electric Completed 01/30/2021 18219 Paring/Cut Benign Lesion 2 To 4 Completed 01/30/2021 11827 Debridement Skin/Tissue Complete d Medical Devices Description No Information Available Encounters Type Date Location Provider Dx Diagnosis Office Visit 07/20/2021 1:15p [place] [facility] Aman Saxena DPM Z48.89 Encounter for other specified surgical aftercare Office Visit 07/06/2021 1:15p [place] [facility] Aman Saxena DPM Z48.89 Encounter for other specified surgical aftercare Office Visit 06/13/2021 2:30p [place] [facility] Aman Saxena DPM M86.172 Other acute osteomyelitis, left ankle and foot E10.42 Type 1 diabetes mellitus wit h diabetic polyneuropathy Office Visit 04/10/2021 1:15p [place] [facility] Aman Saxena DPM Z48.89 Encounter for other specified surgical aftercare Office Visit 04/03/2021 1:15p [place] [facility] Aman Saxena DPM Z48.89 Encounter for other specified surgical aftercare Office Visit 03/27/2021 1:15p [place] [facility] Aman Saxena DPM Z48.89 Encounter for other specified surgical aftercare Assessments Date Code Description Provider 07/20/2021 Z48.89 Encounter for other specified hyl[place] rgical aftercare Aman Saxena DPM 07/06/2021 Z48.89 Encounter for other specified hyl[place] rgical aftercare Aman Saxena DPM 06/15/2021 L03.031 Cellulitis of right toe Aman Saxena DPM 06/15/2021 E10.42 Type 1 diabetes mellitus with di abetic polyneuropathy Aman Saxena DPM 06/15/2021 M86.171 Other acute osteomyelitis, right ankle and foot Aman Saxena, DPM 06/14/2021 L03.031 Cellulitis of right toe Aman Saxena, DPM 06/14/2021 E10.42 Type 1 diabetes mellitus with di abetic polyneuropathy Aman Saxena, DPM 06/14/2021 M86.171 Other acute osteomyelitis, right [...] diabetes mellitus with fo ot ulcer Aman Sxaena, DPM 04/27/2021 L89.892 Pressure ulcer of other [...] 03/03/2021 L03.115 Cellulitis of right lower limb Ariana Saxena, DPM 02/26/2021 E11.621 Type 2 diabetes mellitus with fo ot ulcer Aman Saxena, DPM 02/26/2021 L03.115 Cellulitis of right lower limb A norma Saxena, DPM 02/26/2021 M86.171 Other acute osteomyelitis, right ankle and foot Aman Saxena, DPM 02/20/2021 M86.171 Other acute osteomyelitis, right ankle and foot Aman Saxena, MIGUELM 02/20/2021 E11.621 Type 2 diabetes mellitus with fo ot ulcer Aman Saxena, DPM 02/20/2021 L03.115 Cellulitis of right lower limb A norma Saxena, DPM 02/19/2021 L03.115 Cellulitis of right lower limb A norma Saxena, MIGUELM 02/19/2021 E11.621 Type 2 diabetes mellitus with fo ot ulcer Aman Saxena, DPM 01/30/2021 E10.621 Type 1 diabetes mellitus with fo ot ulcer Aman Saxena, MIGUELM 01/30/2021 L89.892 Pressure ulcer of other site, st age 2 Aman Saxena, ALAN 01/30/2021 B35.1 Tinea unguium Aman Saxena, ALAN 01/30/2021 E10.42 Type 1 diabetes mellitus with di abetic polyneuropathy Aman Saxena DPM 01/30/2021 L84 Corns and callosities Aman Saxena DPM Plan of Treatment Future Appointment(s):* 08/06/2021 1:15 pm - Aman Saxena DPM at [place] [facility] Functional Status Description No Information Available Mental Status Description No Information Available Referrals Description No Information Available
--- OUTSIDE RECORDS SUMMARY | 2021-08-04 00:09 | CCD | Continuity of Care Document ---
Author Author Jose Mauricio Automated Organization Unknown Address Unknown Phone Unavailable Care Team Providers Care Lunch Truck Operator Name Role Phone Aman Skaggs Unavailable Zohaib Ansari Unavailable Aman Skaggs Unavailable Unavailable Unavailable Key Blanchard Unavailable Unavailable Waldo Bell Unavailable Problems Name Dates Details Type 1 diabetes margarette litus with foot ulcer (E10.621) 29-May-2021 Status: Active Medications Name Dates Details MetFORMIN HCl 500 MG Aman Skaggs Active Levemir FlexTouch 100 UNIT/ML Aman Skaggs* Start : 08-Jun-2021 Active Gabapentin 100 MG Aman Skaggs* Start : 08-Jun-2021 Active Cephalexin 500 MG Aman Skaggs* Start : 08-Jun-2021 Active RisperiDONE 2 MG Aman Skaggs* Start : 08-Jun-2021 Active Cefdinir 300 MG Aman Skaggs* Start : 08-Jun-2021 Active Docusate Sodium 100 MG take one capsule PO BID PRN for constipation Aman Skaggs* Start : 08-Jun-2021 Active Allergies and Adverse Reactions Name Dates Details No Known Drug Allergies (Allergy) Onset : 08-Jun-2021 Status: Active Results Date Description Value Details No Known Results Plan of Care Name Dates Details Instructions Diet:regular Ins truction Type: Nutrition education Payers * Medicare - [facility]
--- OUTSIDE RECORDS SUMMARY | 2021-08-04 00:09 | CCD | Continuity of Care Document ---
Author Author Jose Mauricio Automated Organization Unknown Address Unknown Phone Unavailable Care Team Providers Care Tearoom Hostess Name Role Phone Aman Skaggs Unavailable Zohaib [...] Type: Nutrition education Payers * Medicare - [facility]
--- OUTSIDE RECORDS SUMMARY | 2021-08-04 00:09 | CCD | Continuity of Care Document ---
Author Author Jose SAXENA DPM Organization Unknown Address [address] [place] [address], [address] [place] [address] Phone [phone] Care Team Providers Care Asbestos Surveyor Name Role Phone Tammi Guzmán MD AUTM [phone] Problems Active Problems Provider Date Multiple complications [...] MD Instruct ions On Sliding Scale Unknown MUV Interactivetouch Ultra 2 w/Device Kit Use as Directed Unknown Onetouch Ultra Blue Strips Test Four Times A Day Unknown MUV Interactivetouch Delica Lancets Extra Fine 33G Misc Use [...] Information Available Procedures Date Code Description Status 06/13/2021 15761 Office/Outpatient Established Lo w MDM 20-29 Min Completed 05/24/2021 32512 Debridement 6-10 Nails Electric Completed 05/24/2021 20961 Debridement Skin/Tissue Complete d 04/27/2021 34880 Debridement Skin/Tissue Complete d 03/07/2021 44111 Hospital Subsequent Care Level 2 Completed 03/03/2021 62054 Hospital Subsequent Care Level 3 Completed 02/26/2021 32680 Hospital Subsequent Care Level 3 Completed 02/20/2021 34093 Debridement Tissue/Muscle/Bone C ompleted 02/19/2021 93342 Hospital Subsequent Care Level 3 Completed 01/30/2021 58652 Debridement 6-10 Nails Electric Completed 01/30/2021 18176 Paring/Cut Benign Lesion 2 To 4 Completed 01/30/2021 54548 Debridement Skin/Tissue Complete d Medical Devices Description No Information Available Encounters Type Date Location Provider Dx Diagnosis Office Visit 06/13/2021 2:30p [place] [facility] Aman Saxena DPM M86.172 Other acute osteomyelitis, left ankle and foot E10.42 Type 1 diabetes mellitus wit h diabetic polyneuropathy Office Visit 04/10/2021 1:15p [place] [facility] Aman Saxena DPM Z48.89 Encounter for other specified surgical aftercare Office Visit 04/03/2021 1:15p [place] [facility] Aman Saxena DPM Z48.89 Encounter for other specified surgical aftercare Office Visit 03/27/2021 1:15p [place] [facility] Aman Saxena DPM Z48.89 Encounter for other specified surgical aftercare Assessments Date Code Description Provider 06/13/2021 M86.172 Other acute osteomyelitis, left ankle and foot Aman Saxena DPM 06/13/2021 E10.42 Type 1 diabetes mellitus with di abetic polyneuropathy Aman Saxena DPM 05/24/2021 E10.621 Type 1 diabetes mellitus with fo ot ulcer Aman Saxena DPM 05/24/2021 L89.892 Pressure ulcer of other site, st age 2 Aman Saxena DPM 05/24/2021 B35.1 Tinea unguium Aman Saxena DPM 05/24/2021 E10.42 Type 1 diabetes mellitus with di abetic polyneuropathy Aman Saxena DPM 04/27/2021 E11.621 Type 2 diabetes mellitus with fo ot ulcer Aman Saxena DPM 04/27/2021 L89.892 Pressure ulcer of other site, st age 2 Aman Saxena DPM 04/10/2021 Z48.89 Encounter for other specified hyl[place] rgical aftercare Aman Saxena DPM 04/03/2021 Z48.89 Encounter for other specified [...] lower limb A norma Saxena, DPM 02/19/2021 E11.621 Type 2 diabetes mellitus with fo ot ulcer Aman Saxena, DPM 01/30/2021 E10.621 Type 1 diabetes mellitus with fo ot ulcer Aman Saxena, DPM 01/30/2021 L89.892 Pressure ulcer of other site, st age 2 Aman Saxena, DPM 01/30/2021 B35.1 Tinea unguium Aman Saxena, DPM 01/30/2021 E10.42 Type 1 diabetes mellitus with di abetic polyneuropathy Aman Saxena, DPM 01/30/2021 L84 Corns and callosities Aman Saxena, DP Plan of Treatment No Information Available Functional Status Description No Information Available Mental Status Description No Information Available Referrals Description No Information Available
--- OUTSIDE RECORDS SUMMARY | 2021-08-04 00:09 | CCD ---
Author Organization Unknown Address [address] [place] [address] Phone [phone] Care Team Providers Care Crematory Attendant Name Role Phone Zohaib Ansari Unavailable Unavailable Allergies Code Code System Name Reaction Severity Status Onset NKDA Medications Name Status Start Date Stop Date amiloride 5 mg tablet TAKE ONE TABLET BY MOUTH TWICE A DAY Active No t available aripiprazole 10 mg tablet Active Not av ailable aspirin 81 mg chewable tablet CHEW ONE TABLET BY MOUTH EVERY DAY Active Not available atorvastatin 20 mg tablet TAKE ONE TABLET BY MOUTH EVERY DAY Active Not available atorvastatin 40 mg tablet TAKE ONE TABLET [...] ONE CAPSULE BY MOUTH TWICE A DAY NEEDED FOR CONSTIPATION Active Not available doxycycline monohydrate 100 mg capsule TAKE ONE CAPSULE BY MOUTH EVERY 12 HOURS Active Not available fluconazole 100 mg tablet TAKE ONE TABLET BY MOUTH EVERY MORNING AT 9 00AM FOR RASH Active Not available gabapentin 100 mg capsule TAKE ONE CAPSULE BY MOUTH THREE TIMES A DAY Active Not available Invega Sustenna 234 mg/1.5 [...] AT BEDTIME FOR DIABETES Active Not available lisinopril 10 mg tablet TAKE ONE TABLET BY MOUTH EVERY DAY Active Not available metformin ER 500 mg tablet,extended rele ase 24 hr TAKE ONE TABLET BY MOUTH EVERY DAY Active Not available nicotine 14 mg/24 hr daily transdermal p atch APPLY ONE PATCH TO THE SKIN EVERY DAY Active N ot available OneTouch Delica Plus Lancet 30 gauge TEST [...] Hearing Loss Active 04/10/2021 Homeless Active 05/01/2021 Procedures Notes: Ear Surgery Results Lab Results Date Name Specimen Result Interpretation Description Value Range Status Address 07/04/2021 Hemoglobin a1C, Fingerstick ABNORMAL Hba1C 8.5 % Final [facility]: [address] [facility] 06/29/2021 Glucose, Fingerstick, Blood Normal Bedside Glucose 104 mg/dL 80-115 mg/dL [facility]: 83 0 [facility] 06/29/2021 Glucose, Fingerstick, Blood High Bedside Glucose 146 mg/dL 80- 115 mg/dL [facility]: 83 0 [facility] 06/28/2021 Glucose, Fingerstick, Blood High Bedside Glucose 120 mg/dL 80- 115 mg/dL [facility]: 83 0 [facility] 06/28/2021 Glucose, Fingerstick, Blood High Bedside Glucose 173 mg/dL 80- 115 mg/dL [facility]: 83 0 [facility] 06/28/2021 Glucose, Fingerstick, Blood Low Bedside Glucose 71 mg/dL 80-115 mg/dL [facility]: 83 0 [facility] 06/28/2021 Glucose, Fingerstick, Blood High Bedside Glucose 123 mg/dL 80- 115 mg/dL [facility]: 83 0 [facility] 06/27/2021 Glucose, Fingerstick, Blood High Bedside Glucose 144 mg/dL 80- 115 mg/dL [facility]: 83 0 [facility] 06/27/2021 CBC W/ Auto Diff Normal White Blood Count 7.3 10 4.0-10.0 10 [facility]: 830 [facility] Normal Red Blood Count 4.57 10 4.30-6.10 10 [facility]: 830 [facility] Low Hemoglobin 12.6 g/dL 13.5-17.5 g/dL [facility]: [address] [place] [address] Low Hematocrit 39.0 % 42.0-52.0 % [facility]: [address] [place] [address] Normal Mean Corpuscular Volume 85.3 fL 80.0 -96.0 fL [facility]: [address] [place] [address] Normal Mean Corpuscular Hemoglobin 27.6 pg 27.0-33.0 pg [facility]: [address] [place] [address] Normal Mean Corpuscular HGB Conc 32.3 g/dL 32.0-36.5 g/dL [facility]: [address] [place] [address] Normal Red Cell Distribution Width 13.5 % 1 1.5-14.5 % [facility]: [address] [place] [address] Normal Platelet Count, Automated 225 10 150 -450 10 [facility]: 0 [facility] Normal Neutrophils % 50.2 % 36.0-66.0 % [facility]: 830 [facility] Normal Lymph % 38.1 % 24.0-44.0 % [facility]: 830 [facility] Normal Sandoval % 6.7 % 2.0-8.0 % [facility]: 0 [facility] High Eos % 4.2 % 0.0-3.0 % [facility]: 0 [facility] Normal Baso % 0.5 % 0.0-1.0 % [facility]: [address] [place] [address] Normal Immature Granulocyte % 0.3 % 0-3.0 % [facility]: [address] [place] [address] Normal Nucleated Red Blood Cell % 0.0 % 0- 0 % [facility]: [address] [place] [address] Normal Neutrophils # 3.7 10 1.5-8.5 10 [facility]: 830 [facility] Normal Lymph # 2.8 10 1.5-5.0 10 [facility]: 830 [facility] Normal Sandoval # 0.5 10 0.0-0.8 10 [facility]: 830 [facility] Normal Eos # 0.3 10 0.0-0.[address] [facility]: 830 [facility] Normal Baso # 0.0 10 0.0-0.2 10 [facility]: 830 [facility] 06/27/2021 BMP, Serum or Plasma High Glucose, Fastin g 161 mg/dL 70-100 mg/dL [facility]: 83 0 [facility] High Blood Urea Nitrogen 19 mg/dL 7-18 mg /dL [facility]: 0 [facility] Normal Creatinine for GFR 1.05 mg/dL 0.70-1 .30 mg/dL [facility]: 830 [facility] Normal Glomerular Filtration Rate > 60.0 >4 9 [facility]: 830 [facility] Normal Sodium Level 137 mEq/L 136-145 mEq/L [facility]: 0 [facility] Normal Potassium Serum 4.4 mEq/L 3.5-5.1 mE q/L [facility]: 830 [facility] Normal Chloride Level 106 mEq/L 98-107 mEq/ L [facility]: 830 [facility] Normal Carbon Dioxide Level 25 mEq/L 21-32 mEq/L [facility]: 830 [facility] Low Anion Gap 6 mEq/L 8-16 mEq/L [facility]: 0 [facility] Normal Calcium Level 9.4 mg/dL 8.8-10.2 mg/ dL [facility]: 830 [facility] 06/27/2021 Glucose, Fingerstick, Blood High Bedside Glucose 168 mg/dL 80- 115 mg/dL [facility]: 83 0 [facility] 06/27/2021 Glucose, Fingerstick, Blood Normal Bedside Glucose 86 mg/dL 80- 115 mg/dL [facility]: 83 0 [facility] 06/27/2021 Glucose, Fingerstick, Blood High Bedside Glucose 165 mg/dL 80- 115 mg/dL [facility]: 83 0 [facility] 06/26/2021 Glucose, Fingerstick, Blood Normal Bedside Glucose 105 mg/dL 80-115 mg/dL [facility]: 83 0 [facility] 06/26/2021 Glucose, Fingerstick, Blood High Bedside Glucose 138 mg/dL 80- 115 mg/dL [facility]: 83 0 [facility] 06/26/2021 Glucose, Fingerstick, Blood Normal Bedside Glucose 108 mg/dL 80-115 mg/dL [facility]: 83 0 [facility] 06/26/2021 Glucose, Fingerstick, Blood High Bedside Glucose 179 mg/dL 80- 115 mg/dL [facility]: 83 0 [facility] 06/25/2021 Glucose, Fingerstick, Blood High Bedside Glucose 135 mg/dL 80- 115 mg/dL [facility]: 83 0 [facility] 06/25/2021 CBC W/ Auto Diff Normal White Blood Count 6.2 10 4.0-10.0 10 [facility]: 830 [facility] Low Red Blood Count 4.24 10 4.30-6.10 10 [facility]: 830 [facility] Low Hemoglobin 11.5 g/dL 13.5-17.5 g/dL [facility]: 830 [facility] Low Hematocrit 36.1 % 42.0-52.0 % [facility]: 830 [facility] Normal Mean Corpuscular Volume 85.1 fL 80.0 -96.0 fL [facility]: 830 [facility] Normal Mean Corpuscular Hemoglobin 27.1 pg 27.0-33.0 pg [facility]: 830 [facility] Low Mean Corpuscular HGB Conc 31.9 g/dL 32.0-36.5 g/dL Final [facility]: 830 [facility] Normal Red Cell Distribution Width 13.5 % 1 1.5-14.5 % [facility]: [address] [place] [address] Normal Platelet Count, Automated 227 10 150 -450 10 [facility]: 830 [facility] Normal Neutrophils % 47.4 % 36.0-66.0 % [facility]: 830 [facility] Normal Lymph % 40.2 % 24.0-44.0 % Final [facility]: 830 [facility] Normal Sandoval % 6.6 % 2.0-8.0 % Final [facility]: [address] [place] [address] High Eos % 4.7 % 0.0-3.0 % [facility]: 830 [facility] Normal Baso % 0.8 % 0.0-1.0 % [facility]: 830 [facility] Normal Immature Granulocyte % 0.3 % 0-3.0 % [facility]: 0 [facility] Normal Nucleated Red Blood Cell % 0.0 % 0- 0 % [facility]: 830 [facility] Normal Neutrophils # 2.9 10 1.5-8.5 10 [facility]: 830 [facility] Normal Lymph # 2.5 10 1.5-5.0 10 [facility]: 830 [facility] Normal Sandoval # 0.4 10 0.0-0.8 10 [facility]: 0 [facility] Normal Eos # 0.3 10 0.0-0.[address] [facility]: 830 [facility] Normal Baso # 0.1 10 0.0-0.2 10 [facility]: 830 [facility] 06/25/2021 BMP, Serum or Plasma High Glucose, Fastin g 125 mg/dL 70-100 mg/dL [facility]: 83 0 [facility] High Blood Urea Nitrogen 24 mg/dL 7-18 mg /dL [facility]: 830 [facility] Normal Creatinine for GFR 0.97 mg/dL 0.70-1 .30 mg/dL [facility]: 830 [facility] Normal Glomerular Filtration Rate > 60.0 >4 9 [facility]: 830 [facility] Normal Sodium Level 139 mEq/L 136-145 mEq/L [facility]: 830 [facility] Normal Potassium Serum 4.0 mEq/L 3.5-5.1 mE q/L [facility]: 830 [facility] Normal Chloride Level 107 mEq/L 98-107 mEq/ L [facility]: 830 [facility] Normal Carbon Dioxide Level 28 mEq/L 21-32 mEq/L [facility]: 830 [facility] Low Anion Gap 4 mEq/L 8-16 mEq/L [facility]: 830 [facility] Low Calcium Level 8.7 mg/dL 8.8-10.2 mg/ dL [facility]: 830 [facility] 06/25/2021 Glucose, Fingerstick, Blood High Bedside Glucose 123 mg/dL 80- 115 mg/dL [facility]: 83 0 [facility] 06/25/2021 Glucose, Fingerstick, Blood Normal Bedside Glucose 98 mg/dL 80- 115 mg/dL [facility]: 83 0 [facility] 06/25/2021 Glucose, Fingerstick, Blood High Bedside Glucose 145 mg/dL 80- 115 mg/dL [facility]: 83 0 [facility] 06/24/2021 Glucose, Fingerstick, Blood High Bedside Glucose 128 mg/dL 80- 115 mg/dL [facility]: 83 0 [facility] 06/24/2021 Glucose, Fingerstick, Blood High Bedside Glucose 119 mg/dL 80- 115 mg/dL [facility]: 83 0 [facility] 06/24/2021 Glucose, Fingerstick, Blood High Bedside Glucose 154 mg/dL 80- 115 mg/dL [facility]: 83 0 [facility] 06/24/2021 Glucose, Fingerstick, Blood High Bedside Glucose 138 mg/dL 80- 115 mg/dL [facility]: 83 0 [facility] 06/23/2021 Glucose, Fingerstick, Blood Normal Bedside Glucose 110 mg/dL 80-115 mg/dL [facility]: 83 0 [facility] 06/23/2021 Glucose, Fingerstick, Blood High Bedside Glucose 158 mg/dL 80- 115 mg/dL [facility]: 83 0 [facility] 06/23/2021 Glucose, Fingerstick, Blood Normal Bedside Glucose 85 mg/dL 80- 115 mg/dL [facility]: 83 0 [facility] 06/23/2021 Glucose, Fingerstick, Blood High Bedside Glucose 191 mg/dL 80- 115 mg/dL [facility]: 83 0 [facility] 06/22/2021 Glucose, Fingerstick, Blood High Bedside Glucose 166 mg/dL 80- 115 mg/dL [facility]: 83 0 [facility] 06/22/2021 Glucose, Fingerstick, Blood Normal Bedside Glucose 99 mg/dL 80- 115 mg/dL [facility]: 83 0 [facility] 06/22/2021 Glucose, Fingerstick, Blood High Bedside Glucose 149 mg/dL 80- 115 mg/dL [facility]: 83 0 [facility] Past Encounters 07/04/2021 Screening for Malignant Neoplasm of Colon; Tobacco User; Amputated Toe; Foot Ulcer Due to Type 2 Diabetes Mellitus; Hearing Loss Zohaib Ansari MD: [address] [place] [address], Ph. 04/10/2021 Foot Ulcer Due to Type 2 Diabetes Mellitus; Type 2 Diabetes Mellitus without Complication; Hearing Loss Zohaib Ansari MD: [address] [place] [address], Ph. 04/04/2021 Administration of SARS-CoV-2 Antigen Vaccine Zohaib Ansari MD: [address] [place] [address], Ph. 12/27/2020 Administration of SARS-CoV-2 Antigen Vaccine [facility]: [address] [place] [address], Ph. Social History Tobacco Smoking Status Heavy Tobacco Smoker (1 pack per a da y) Vaccine List Vaccine Type COVID-19, mRNA, LNP-S, PF, 100 mcg/0.5 m L dose 10.5 mL 10.5 mL influenza, unspecified formulation 10/13/2019 Plan of Care Reminders Provider Appointments None recorded. Lab None recorded. Referral None recorded. Procedures None recorded. Surgeries None recorded. Imaging None recorded. Vitals 07/04/2021 12:40PM HOSPITAL DISCHARGE Height Weight BMI [...]
--- OUTSIDE RECORDS SUMMARY | 2021-08-04 00:09 | CCD | Continuity of Care Document ---
Author Author Jose Mauricio Automated Organization Unknown Address Unknown Phone Unavailable Care Team Providers Care Die Stamper Name Role Phone Aman Skaggs Unavailable Priscila David Unavailable Aman Skaggs Unavailable Unavailable Unavailable DevonCharla nelsonylee Unavailable Unavailable Waldo Bell Unavailable Problems Name [...] Type: Nutrition education Payers * Medicare - [facility]
--- OUTSIDE RECORDS SUMMARY | 2021-08-04 00:09 | CCD | Continuity of Care Document ---
Author Author Jose SAXENA DPM Organization Unknown Address [address] [place] [address], [address] [place] [address] Phone [phone] Care Team Providers Care Product Operations Associate Name Role Phone Tammi Guzmán MD AUTM [phone] Problems Active Problems Provider Date Multiple complications [...] MD Instruct ions On Sliding Scale Unknown Bond Streettouch Ultra 2 w/Device Kit Use as Directed Unknown [employer] Ultra Blue Strips Test Four Times A [...] Information Available Procedures Date Code Description Status 04/27/2021 91117 Debridement Skin/Tissue Complete d 03/07/2021 16354 Hospital Subsequent Care Level 2 Completed 03/03/2021 95373 Hospital Subsequent Care Level 3 Completed 02/26/2021 48141 Hospital Subsequent Care Level 3 Completed 02/20/2021 67341 Debridement Tissue/Muscle/Bone C ompleted 02/19/2021 11776 Hospital Subsequent Care Level 3 Completed 01/30/2021 35893 Debridement 6-10 Nails Electric Completed 01/30/2021 41295 Paring/Cut Benign Lesion 2 To 4 Completed 01/30/2021 21518 Debridement Skin/Tissue Complete d Medical Devices Description No Information Available Encounters Type Date Location Provider Dx Diagnosis Office Visit 04/10/2021 1:15p [place] [facility] Aman Saxena DPM Z48.89 Encounter for other specified surgical aftercare Office Visit 04/03/2021 1:15p [place] [facility] Aman Saxena DPM Z48.89 Encounter for other specified surgical aftercare Office Visit 03/27/2021 1:15p [place] [facility] Aman Saxena DPM Z48.89 Encounter for other specified surgical aftercare Assessments Date Code Description Provider 04/27/2021 E11.621 Type 2 diabetes mellitus with fo ot ulcer Aman Saxena, DPM 04/27/2021 L89.892 Pressure ulcer of other site, st age 2 Aman Saxena, MIGUELM 04/10/2021 Z48.89 Encounter for other specified [place] [...] Saxena DPM Plan of Treatment Future Appointment(s):* 06/12/2021 10:30 am - Aman Saxena DPM at [facility] Functional Status Description No Information Available Mental Status Description No Information Available Referrals Description No Information Available
--- OUTSIDE RECORDS SUMMARY | 2021-08-04 00:09 | CCD | Continuity of Care Document ---
Author Author Jose Mauricio Automated Organization Unknown Address Unknown Phone Unavailable Care Team Providers Care Heavy Truck Mechanic Name Role Phone Aman Skaggs Unavailable Zohaib [...] Type: Nutrition education Payers * Medicare - [facility]
--- OUTSIDE RECORDS SUMMARY | 2021-08-04 00:09 | CCD | Continuity of Care Document ---
Author Author Jose SAXENA DPM Organization Unknown Address [address] [place] [address], [facility] [address] [place] [address] Phone [phone] Care Team Providers Care Logging Contractor Name Role Phone Tammi Guzmán MD AUTM [phone] Problems Active Problems Provider Date Multiple complications [...] MD Instruct ions On Sliding Scale Unknown [employer] Ultra 2 w/Device Kit Use as Directed Unknown OnetoGoodyTag Ultra Blue Strips Test Four Times A Day Unknown [employer] The[employer]ouch Delica Lancets Extra Fine 33G Misc Use [...] A Day Unknown 00 Levemir 100Unit/ML Solution Reen Coker MD Clotrimazole 1% Cream Apply Topically [...] Information Available Procedures Date Code Description Status 05/24/2021 68534 Debridement 6-10 Nails Electric Completed 05/24/2021 78221 Debridement Skin/Tissue Complete d 04/27/2021 82759 Debridement Skin/Tissue Complete d 03/07/2021 31927 Hospital Subsequent Care Level 2 Completed 03/03/2021 78054 Hospital Subsequent Care Level 3 Completed 02/26/2021 86914 Hospital Subsequent Care Level 3 Completed 02/20/2021 77020 Debridement Tissue/Muscle/Bone C ompleted 02/19/2021 16667 Hospital Subsequent Care Level 3 Completed 01/30/2021 43999 Debridement 6-10 Nails Electric Completed 01/30/2021 81707 Paring/Cut Benign Lesion 2 To 4 Completed 01/30/2021 19682 Debridement Skin/Tissue Complete d Medical Devices Description No Information Available Encounters Type Date Location Provider Dx Diagnosis Office Visit 04/10/2021 1:15p [place] [facility] Aman Saxena DPM Z48.89 Encounter for other specified surgical aftercare Office Visit 04/03/2021 1:15p [place] [facility] Aman Saxena DPM Z48.89 Encounter for other specified surgical aftercare Office Visit 03/27/2021 1:15p [place] [facility] Aman Saxena DPM Z48.89 Encounter for other specified surgical aftercare Assessments Date Code Description Provider 05/24/2021 E10.621 Type 1 diabetes mellitus with [...]
--- OUTSIDE RECORDS SUMMARY | 2021-08-04 00:09 | CCD | Continuity of Care Document ---
Author Author Jose Mauricio Automated Organization Unknown Address Unknown Phone Unavailable Care Team Providers Care District Sales Representative Name Role Phone Aman Skaggs Unavailable Priscila [...] Type: Nutrition education Payers * Medicare - [facility]
--- OUTSIDE RECORDS SUMMARY | 2021-08-04 00:09 | CCD | Continuity of Care Document ---
Author Author Jose SAXENA DPM Organization Unknown Address [address] [place] [address], [facility] 2 [place] [address] Phone [phone] Care Team Providers Care Escalator Service Mechanic Name Role Phone Tammi Guzmán MD AUTM [phone] Problems Active Problems Provider Date Multiple complications [...] MD Instruct ions On Sliding Scale Unknown [employer] Network[employer]ouch Ultra 2 w/Device Kit Use as Directed Unknown On[employer] Career[employer] Ultra Blue Strips Test Four Times A [...] Available Procedures Date Code Description Status 05/24/2021 35189 Debridement 6-10 Nails Electric Completed 05/24/2021 66918 Debridement Skin/Tissue Complete d 04/27/2021 85189 Debridement Skin/Tissue Complete d 03/07/2021 87722 Hospital Subsequent Care Level 2 Completed 03/03/2021 70578 Hospital Subsequent Care Level 3 Completed 02/26/2021 58655 Hospital Subsequent Care Level 3 Completed 02/20/2021 74771 Debridement Tissue/Muscle/Bone C ompleted 02/19/2021 23137 [facility] Subsequent Care Level 3 Completed 01/30/2021 09785 Debridement 6-10 Nails Electric Completed 01/30/2021 75939 Paring/Cut Benign Lesion 2 To 4 Completed 01/30/2021 04112 Debridement Skin/Tissue Complete d Medical Devices Description No Information Available Encounters Type Date Location Provider Dx Diagnosis Office Visit 04/10/2021 1:15p [place] [facility] Aman Saxena DPM Z48.89 Encounter for other specified surgical aftercare Office Visit 04/03/2021 1:15p [place] [facility] Aman Saxena DPM Z48.89 Encounter for other specified surgical aftercare Office Visit 03/27/2021 1:15p [place] [facility] Aman Saxena DPM Z48.89 Encounter for other specified surgical aftercare Assessments Date Code Description Provider 05/24/2021 E10.621 Type 1 diabetes mellitus with fo ot ulcer Aman Saxena, DPM 05/24/2021 L89.892 Pressure ulcer of other site, st age 2 Aman Saxena, DPM 05/24/2021 B35.1 Tinea unguium Aman Saxena, DPM 05/24/2021 E10.42 Type 1 diabetes mellitus with di abetic polyneuropathy Aman Saxena, MIGUELM 04/27/2021 E11.621 Type 2 diabetes mellitus with fo ot ulcer Aman Saxena, DPM 04/27/2021 L89.892 Pressure ulcer of other site, st age 2 Aman Saxena, MIGUELM 04/10/2021 Z48.89 Encounter for other specified [place]yl[place] rgical aftercare Aman Saxena, MIGUELM 04/03/2021 Z48.89 Encounter for other specified [place]yl[place] rgical aftercare MIGUEL VincentM 03/27/2021 Z48.89 Encounter for other specified [place] [...] site, st age 2 Aman Saxena, MIGUELM 01/30/2021 B35.1 Tinea unguium Aman Saxena, DPM 01/30/2021 E10.42 Type 1 diabetes mellitus with di abetic polyneuropathy Aman Saxena DPM 01/30/2021 L84 Corns and callosities Aman Saxena DPM Plan of Treatment Future Appointment(s):* 06/12/2021 10:30 am - Aman Saxena DPM at [place] [facility] Functional Status Description No Information Available Mental Status Description No Information Available Referrals Description No Information Available
--- OUTSIDE RECORDS SUMMARY | 2021-08-04 00:09 | CCD ---
Author Author Jose Ng Organization [facility] Address Unknown Phone Unavailable Care Team Providers Care Php Mysql Web Developer Name Role Phone Yamileth Ng PCP Unavailable Allergies, Adverse Reactions, Alerts Allergy Substance Code C odeSystem Reaction Severity Critic ality Status Start Date Moderate Medications Medication Medication Code Medication CodeSystem Start Date Stop Date Route Dose Status Fill Instructions RxNorm Problems Problem Name Code CodeSy stem Alternate Code Alternate CodeSystem Start Date End Date Status Narrative Paranoid schizophrenia [id number] SNOMED-CT 2021-05-09 Active Relevant diagnostic tests/laboratory data Narrative No Information Procedures Procedure Name Code Code System Target Site Date of Procedure Status Service Delivery Location Device Cod e Device Name Device UID SNOMED-CT () 2021-05-[address] [facility] [address] [place], [place], [id number] SNOMED-CT () 2021-06-[address] [facility] [address] [place], [place], [id number] SNOMED-CT () 2021-05-[address] [facility] [address] [place], [place], [id number] SNOMED-CT () 2021-06-22 [address] [facility] [address] [place], [place], [id number] SNOMED-CT () 2021-05-09 [address] [facility] [address] [place], [place], [id number] Encounters/Encounter Diagnoses Encounter Name Encounter Code Diagnosis Code Diagnosis Name Diagnosis CodeSystem Date of Diagnosis Service Delivery L ocation non-billable [id number] Paranoid schizophrenia SNOMED-CT 2021-06-25 [facility] , , , Vital Signs No Information Social History Element Description Description Start Date End Date Code CodeSystem AdditionalInfo SexAssignedAtBirth Male 1960 M AdministrativeGender Hospital Discharge Instructions * Reason For Referral Medical Equipment * FDA Assessments *
--- OUTSIDE RECORDS SUMMARY | 2021-08-04 00:09 | CCD ---
Author Author [facility] Organization [facility] Address Unknown Phone Unavailable Care Team Providers Care Accounts Payable Assistant Name Role Phone Franklynnorma Bart Unavailable PROBLEMS No Information ALLERGIES No Known Allergies ENCOUNTERS from 1960 to 2021-05-24 Encounter Location Date Provider Diagnosis [facility] [address] [phone] [place] [address] May, Bart Parrish IMMUNIZATIONS No Information SOCIAL HISTORY Tobacco Use: Social History Observation Description Date Details (start date - stop date) Current Smoker Sex Assigned At : Social History Observation Description Sex Assigned At Unknown Tobacco Use: Question Answer Notes Are you a: current smoker REASON FOR REFERRAL No Information VITAL SIGNS No information MEDICATIONS Medication SIG (Take, Route, Frequency, Duration) Notes Start Da te End Date Status One touch ultra blue Acti ve NovoLOG FlexPen 100 UNIT/ML as directed Subcutaneous Active metFORMIN HCl ER 500 MG 1 tablet with evening meal O rally Once a day for 30 day(s) Active D-Care Glucometer w/Device as directed Active Ketoconazole 2 % 1 application Externally Once a day for 30 Days Mar, Active One Touch/One Touch II Starter Active BD Pen Needle Mini U/F 31G X 5 MM as directed Active OneTouch UltraSoft Lancets - as directed Active Levemir Flex Touch 100 UNIT/ML Subcutaneous Active PROCEDURES No Information RESULTS No Results REASON FOR VISIT [facility] inital Apt[address] MEDICAL (GENERAL) HISTORY Type Description Date Medical History ELEVATED PSA Medical History TYPE 2 DIABETES WITHOUT COMPLICATIONS Surgical History No Surgical history information [facility]21 Goals Section No Information Health Concerns No Information MEDICAL EQUIPMENT No Information MENTAL STATUS No Information FUNCTIONAL STATUS No Information ASSESSMENTS No Information PLAN OF TREATMENT Medication Medication Name Sig Start Date Stop Date Ketoconazole 2 % 1 application Externally Once a day for 30 Days Mar, Next Appt Details Provider Name:Chung Cady Vadimleslie, 08-02 11:30:00 AM, [address] [place] [address], [place], [place], [facility], Insurance Providers Payer Name Payer Address Payer Phone Insured Name Patient Relati onship to Insured Coverage Start Date Coverage End Date MEDICARE Part A and B [address] [facility][1] [phone] LUCIA MCNAIR self
--- OUTSIDE RECORDS SUMMARY | 2021-08-04 00:09 | CCD | Continuity of Care Document ---
Author Author [facility] Address [address] [place] [address] Phone Care Team Providers Care Parts Salvager Name Role Phone PCP Unavailable Chief Complaint and Reason for Visit Reason for Visit R FOOT PAIN Health Concerns Health Concerns may be documented in an alternate section. Allergies, Adverse Reactions, Alerts No allergy information available. Social History Assigned Sex Male Problems No problem information available. Medications No medication information available. Immunizations No Immunization Information Available Medical Equipment No Medical Equipment Information available Procedures Procedure Date Performed Status FOOT COMPLETE June 12, 2021 completed Relevant Diagnostic Tests and/or Laboratory Data Laboratory Results Test Date/Time Result Interpretation Reference Range Result Comment Performing Site White Blood Count June 12 3:38pm 15.3 4.0-10.0 [facility], [address] [place] [address] Red Blood Count June 12, 2021 3:38p m 4.08 4.50-6.00 [facility], [address] [place] [address] Hemoglobin June 12, 2021 3:38pm 11.3 14.0-18.0 [facility], [address] [facility] [address] Hematocrit June 12, 2021 3:38pm 33.1 42.0-54.0 [facility], [address] [facility] [address] Mean Corpuscular Volume June 122020 3:38pm 81.1 80-96 [facility], [address] [place] [address] Mean Corpuscular Hemoglobin Septembe 2020 3:38pm 27.7 27.0-31.0 [facility], 4 [facility] [address] Mean Corpuscular Hgb Concent Diff Se ptember 2020 3:38pm 34.1 32.0-36.0 [facility], 4 [facility] [address] Red Cell Distribution Width Septembe r 2020 3:38pm 13.2 10.0-14.5 [facility], 4 [facility] [address] Platelet Count June 12, 2021 3:38pm 350 172-450 [facility], [facility] [address] Mean Platelet Volume June 12, 2021 3:38pm 8.8 9.0-13.0 [facility], [address] [facility] [address] Granulocytes % (Auto) May 3:38pm 79.1 50-80.0 [facility], [facility] [address] Immature Granulocytes % June 122020 3:38pm 0.3 0.0-0.2 [facility], [facility] [address] Lymphocytes % June 12, 2021 3:38pm 14.6 25.0-50.0 [facility], [address] [facility] [address] Monocytes % June 12, 2021 3:38pm 5.0 2.0-10.0 [facility], [facility] [address] Eosinophils % June 12, 2021 3:38pm 0.7 0-5.0 [facility], [facility] [address] Basophils % June 12, 2021 3:38pm 0.3 0.0-2.0 [facility], [address] [facility] [address] Granulocytes # June 12, 2021 3:38pm 12.1 2.0-8.00 [facility], [address] [facility] [address] Immature Granulocytes # June 122020 3:38pm 0.1 0.0-0.2 [facility], [address] [facility] [address] Lymphocytes # June 12, 2021 3:38pm 2.2 1.0-5.0 [facility], [address] [facility] [address] Monocytes # June 12, 2021 3:38pm 0.8 0.10-1.20 [facility], [facility] [address] Eosinophils # June 12, 2021 3:38pm 0.1 0.0-0.5 [facility], [facility] [address] Basophils # June 12, 2021 3:38pm 0.1 0.0-0.2 [facility], [facility] [address] Erythrocyte Sedimentation Rate Septe mber 2020 3:38pm 67 0-20 [facility], [facility] [address] Glucose Level June 12, 2021 3:38pm 263 74-106 [facility], [facility] [address] Lactic Acid Level June 12 3:38pm 1.3 0.4-2.0 [facility], [facility] [address] Blood Urea Nitrogen June 12, 2021 3:38pm 23 7-18 [facility], [facility] [address] Creatinine June 12, 2021 3:38pm 1.18 0.7-1.3 [facility], [facility] [address] Sodium Level June 12, 2021 3:38pm 134 136-145 [facility], [facility] [address] Potassium Level June 12, 2021 3:38p m 4.0 3.5-5.1 [facility], [facility] [address] Chloride Level June 12, 2021 3:38pm 99 98-107 [facility], [facility] [address] Carbon Dioxide Level June 12, 2021 3:38pm 27 21-32 [facility], [facility] [address] Calcium Level June 12, 2021 3:38pm 9.0 8.5-10.1 [facility], [facility] [address] Anion Gap June 12, 2021 3:38pm 8.0 5-12 [facility], [facility] [address] Estimated GFR (MDRD) June 12, 2021 3:38pm 63 GFR IS CALCULATED IN mL/min/1.73m2 NORMAL FUNCTION: >90MILDLY DECREASED: 60-89MILDY TO MODERATELY DECREASED: 45-59 MODERATELY TO SEVERELY DECREASED: 30-44SEVERELY DECREASED: 15-29RENAL FAILURE: <15 [facility], [address] [facility] [address] Aspartate Amino Transf (AST/SGOT) Se pt2020 3:38pm 8 15-37 [facility], 4 [facility] [address] Alanine Aminotransferase (ALT/SGPT) June 12, 2021 3:38pm 18 12-78 [facility], 4 [facility] [address] Alkaline Phosphatase June 12, 2021 3:38pm 107 46-116 [facility], [facility] [address] Total Bilirubin June 12, 2021 3:38p m 0.2 0.2-1.0 [facility], [facility] [address] Total Protein June 12, 2021 3:38pm 8.5 6.4-8.2 [facility], [facility] [address] Albumin June 12, 2021 3:38pm 2.9 3.4-5.0 [facility], [facility] [address] C-Reactive Protein June 12, 021 3:38pm 50.0 0.0-3.0 [facility], [facility] [address] Coronavirus (COVID-19)(PCR) Septembe r 2020 5:36pm NEGATIVE NEGATIVE Negative results should be treated as pr esumptive and, ifinconsistent with clinical signs and symptoms or necessaryfor patient management, should be tested with differentauthorized or cleared molecular tests.Negative results do not preclude SARS-CoV-2 infection andshould not be used as the sole basis for patient managementdecisions.This is a rapid molecular isothermal nucleic acidamplification technology (NAAT) in vitro diagnostic testutilizing a loop mediated isothermal amplification (LAMP)test with nicking endonuclease amplification reaction(NEAR) intended for the qualitative detection of nucleica jose from the SARS-CoV-2 viral RNA in direct nasal,nasopharyngeal or throat swabs from individuals who aresuspected of COVID-19.Results are for the indentification of SARS-CoV-2 RNA. YyxTQOH-UfK-1 RNA is generally detectable in respiratorysamples during the actue phase of infection. [facility], [address] [place] [address] Blood Culture (LAB) June 12, 2021 5:04pm SENT TO [facility], [address] [place], [place] [id number] Diagnostic Imaging Reports Report Dictated Date/Time Dictated By Status PS360 TEMPLATE June 12, 2021 5:26pm NICOLA CARRENO Patient Name: LUCIA MCNAIR Unit#: [id number] Rad#: [id number] : 60 Status: FAZAL Rivas MD: BRAD COLON Room/Bed Sex: M Human Resources Records Clerk: Jc Arias Date: 06/12/21 Report #: [id number] Signed - FOOT COMPLETE ORIGINAL REPORT Right Foot DATE OF EXAMINATION: 06/12/2021 20:21 EDT FOOT COMPLETE INDICATION: Pain and swelling, ulceration COMPARISON: None TECHNIQUE: 4 views of the foot were obtained. FINDINGS: There is osseous destruction involving the distal portion of the first metatarsal bone as well as the base of proximal phalanx of the first digit. There is also destructive process involving the base of the distal phalanx of the great toe. There is a soft tissue ulceration. Atherosclerotic changes are noted. 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 There is overlying soft tissue inflammation and ulceration.. Electronically signed in PS360 by: Nicola Carreno M.D. 06/12/2021 21:28 EDT Vital Signs No vital signs result information available. Insurance Providers Guarantor LUCIA MCNAIR Address [address] [place] [address] Contact Info. Home Phone: Payer Policy Id Coverage Id Subscriber's Name Subscriber Id Effective Date Expiration Date MEDICARE - [place] [id number] LUCIA MCNAIR February [employer] [id number] LUCIA MCNAIR February [id number] LUCIA MCNAIR 2021 Encounters Encounter Location(s) Ar rival/Admit Date Discharge/Depart Date Provider(s) [facility] June 12, 2021 3:23pm June 12, 2021 7:40pm BRAD COLON [facility] May 16, 2021 4:08pm May 16, 2021 5:52pm BRENNAN NIELSON Functional Status No Functional Status information available Mental Status No Mental Status Information Available Assessments No Assessments Information Available Goals Goals may be documented in an alternate section.
--- OUTSIDE RECORDS SUMMARY | 2021-08-04 00:09 | CCD ---
Author Organization Unknown Address [address] [place] [address] Phone [phone] Care Team Providers Care Customer Leader Name Role Phone AnsariZohaib Unavailable Unavailable Allergies [...] a1C, Fingerstick ABNORMAL Hba1C 8.5 % [facility]: [address] [facility] 06/29/2021 Glucose, Fingerstick, Blood Normal Bedside Glucose 104 mg/dL 80-115 mg/dL [facility]: 83 0 [facility] 06/29/2021 Glucose, Fingerstick, Blood High Bedside Glucose 146 mg/dL 80- 115 mg/dL [facility]: 83 0 [facility] 06/28/2021 Glucose, Fingerstick, Blood High Bedside Glucose 120 mg/dL 80- 115 mg/dL [facility]: 83 0 [facility] 06/28/2021 Glucose, Fingerstick, Blood High Bedside Glucose 173 mg/dL 80- 115 mg/dL [facility]: 83 0 [facility] 06/28/2021 Glucose, Fingerstick, Blood Low Bedside Glucose 71 mg/dL 80-115 mg/dL [facility]: 83 0 [facility] 06/28/2021 Glucose, Fingerstick, Blood High Bedside Glucose 123 mg/dL 80- 115 mg/dL [facility]: 83 0 [facility] 06/27/2021 Glucose, Fingerstick, Blood High Bedside Glucose 144 mg/dL 80- 115 mg/dL [facility]: 83 0 [facility] 06/27/2021 CBC W/ Auto Diff Normal White Blood Count 7.3 10 4.0-10.0 10 [facility]: 830 [facility] Normal Red Blood Count 4.57 10 4.30-6.10 10 [facility]: 830 [facility] Low Hemoglobin 12.6 g/dL 13.5-17.5 g/dL [facility]: [address] [place] [address] Low Hematocrit 39.0 % 42.0-52.0 % [facility]: 830 [facility] Normal Mean Corpuscular Volume 85.3 fL 80.0 -96.0 fL [facility]: [address] [place] [address] Normal Mean Corpuscular Hemoglobin 27.6 pg 27.0-33.0 pg [facility]: [address] [place] [address] Normal Mean Corpuscular HGB Conc 32.3 g/dL 32.0-36.5 g/dL [facility]: 0 [facility] Normal Red Cell Distribution Width 13.5 % 1 1.5-14.5 % [facility]: 830 [facility] Normal Platelet Count, Automated 225 10 150 -450 10 [facility]: 0 [facility] Normal Neutrophils % 50.2 % 36.0-66.0 % [facility]: 830 [facility] Normal Lymph % 38.1 % 24.0-44.0 % [facility]: 830 [facility] Normal Sunflower % 6.7 % 2.0-8.0 % [facility]: 830 [facility] High Eos % 4.2 % 0.0-3.0 % [facility]: 0 [facility] Normal Baso % 0.5 % 0.0-1.0 % [facility]: 0 [facility] Normal Immature Granulocyte % 0.3 % 0-3.0 % [facility]: 0 [facility] Normal Nucleated Red Blood Cell % 0.0 % 0- 0 % [facility]: 830 [facility] Normal Neutrophils # 3.7 10 1.5-8.5 10 [facility]: 830 [facility] Normal Lymph # 2.8 10 1.5-5.0 10 [facility]: 8[address] [facility] Normal Sunflower # 0.5 10 0.0-0.8 10 [facility]: 830 [facility] Normal Eos # 0.3 10 0.0-0.5 10 [facility]: 830 [facility] Normal Baso # 0.0 10 0.0-0.2 10 [facility]: 830 [facility] 06/27/2021 BMP, Serum or Plasma High Glucose, Fastin g 161 mg/dL 70-100 mg/dL [facility]: 83 0 [facility] High Blood Urea Nitrogen 19 mg/dL 7-18 mg /dL [facility]: 8[address] [facility] Normal Creatinine for GFR 1.05 mg/dL 0.70-1 .30 mg/dL [facility]: 0 [facility] Normal Glomerular Filtration Rate > 60.0 >4 9 [facility]: 8[address] [facility] Normal Sodium Level 137 mEq/L 136-145 mEq/L [facility]: 0 [facility] Normal Potassium Serum 4.4 mEq/L 3.5-5.1 mE q/L [facility]: 830 [facility] Normal Chloride Level 106 mEq/L 98-107 mEq/ L [facility]: 0 [facility] Normal Carbon Dioxide Level 25 mEq/L 21-32 mEq/L [facility]: 0 [facility] Low Anion Gap 6 mEq/L 8-16 mEq/L [facility]: 830 [facility] Normal Calcium Level 9.4 mg/dL 8.8-10.2 mg/ dL [facility]: 8[address] [facility] 06/27/2021 Glucose, Fingerstick, Blood High Bedside Glucose 168 mg/dL 80- 115 mg/dL [facility]: 83 0 [facility] 06/27/2021 Glucose, Fingerstick, Blood Normal Bedside Glucose 86 mg/dL 80- 115 mg/dL [facility]: 83 0 [facility] 06/27/2021 Glucose, Fingerstick, Blood High Bedside Glucose 165 mg/dL 80- 115 mg/dL [facility]: 83 0 [facility] 06/26/2021 Glucose, Fingerstick, Blood Normal Bedside Glucose 105 mg/dL 80-115 mg/dL [facility]: 83 0 [facility] 06/26/2021 Glucose, Fingerstick, Blood High Bedside Glucose 138 mg/dL 80- 115 mg/dL [facility]: 83 0 [facility] 06/26/2021 Glucose, Fingerstick, Blood Normal Bedside Glucose 108 mg/dL 80-115 mg/dL [facility]: 83 0 [facility] 06/26/2021 Glucose, Fingerstick, Blood High Bedside Glucose 179 mg/dL 80- 115 mg/dL [facility]: 83 0 [facility] 06/25/2021 Glucose, Fingerstick, Blood High Bedside Glucose 135 mg/dL 80- 115 mg/dL [facility]: 83 0 [facility] 06/25/2021 CBC W/ Auto Diff Normal White Blood Count 6.2 10 4.0-10.0 10 [facility]: 830 [facility] Low Red Blood Count 4.24 10 4.30-6.10 10 [facility]: 830 [facility] Low Hemoglobin 11.5 g/dL 13.5-17.5 g/dL [facility]: 8[address] [facility] Low Hematocrit 36.1 % 42.0-52.0 % [facility]: 8[address] [facility] Normal Mean Corpuscular Volume 85.1 fL 80.0 -96.0 fL [facility]: 8[address] [facility] Normal Mean Corpuscular Hemoglobin 27.1 pg 27.0-33.0 pg [facility]: 8[address] [facility] Low Mean Corpuscular HGB Conc 31.9 g/dL 32.0-36.5 g/dL [facility]: 8[address] [facility] Normal Red Cell Distribution Width 13.5 % 1 1.5-14.5 % [facility]: 8[address] [facility] Normal Platelet Count, Automated 227 10 150 -450 10 [facility]: 830 [facility] Normal Neutrophils % 47.4 % 36.0-66.0 % [facility]: 8[address] [facility] Normal Lymph % 40.2 % 24.0-44.0 % [facility]: 8[address] [facility] Normal Sunflower % 6.6 % 2.0-8.0 % [facility]: 830 [facility] High Eos % 4.7 % 0.0-3.0 % [facility]: 8[address] [facility] Normal Baso % 0.8 % 0.0-1.0 % [facility]: 0 [facility] Normal Immature Granulocyte % 0.3 % 0-3.0 % [facility]: 8[address] [facility] Normal Nucleated Red Blood Cell % 0.0 % 0- 0 % [facility]: 8[address] [facility] Normal Neutrophils # 2.9 10 1.5-8.5 10 [facility]: 8[address] [facility] Normal Lymph # 2.5 10 1.5-5.0 10 [facility]: 8[address] [facility] Normal Sunflower # 0.4 10 0.0-0.8 10 [facility]: 8[address] [facility] Normal Eos # 0.3 10 0.0-0.5 10 [facility]: [address] [facility] Normal Baso # 0.1 10 0.0-0.2 10 [facility]: 830 [facility] 06/25/2021 BMP, Serum or Plasma High Glucose, Fastin g 125 mg/dL 70-100 mg/dL [facility]: 83 0 [facility] High Blood Urea Nitrogen 24 mg/dL 7-18 mg /dL [facility]: [address] [facility] Normal Creatinine for GFR 0.97 mg/dL 0.70-1 .30 mg/dL [facility]: [address] [facility] Normal Glomerular Filtration Rate > 60.0 >4 9 [facility]: 8[address] [facility] Normal Sodium Level 139 mEq/L 136-145 mEq/L [facility]: [address] [facility] Normal Potassium Serum 4.0 mEq/L 3.5-5.1 mE q/L [facility]: 8[address] [facility] Normal Chloride Level 107 mEq/L 98-107 mEq/ L [facility]: [address] [facility] Normal Carbon Dioxide Level 28 mEq/L 21-32 mEq/L [facility]: [address] [facility] Low Anion Gap 4 mEq/L 8-16 mEq/L [facility]: [address] [facility] Low Calcium Level 8.7 mg/dL 8.8-10.2 mg/ dL [facility]: 8[address] [facility] 06/25/2021 Glucose, Fingerstick, Blood High Bedside Glucose 123 mg/dL 80- 115 mg/dL [facility]: 83 0 [facility] 06/25/2021 Glucose, Fingerstick, Blood Normal Bedside Glucose 98 mg/dL 80- 115 mg/dL [facility]: 83 0 [facility] 06/25/2021 Glucose, Fingerstick, Blood High Bedside Glucose 145 mg/dL 80- 115 mg/dL [facility]: 83 0 [facility] 06/24/2021 Glucose, Fingerstick, Blood High Bedside Glucose 128 mg/dL 80- 115 mg/dL [facility]: 83 0 [facility] 06/24/2021 Glucose, Fingerstick, Blood High Bedside Glucose 119 mg/dL 80- 115 mg/dL [facility]: 83 0 [facility] 06/24/2021 Glucose, Fingerstick, Blood High Bedside Glucose 154 mg/dL 80- 115 mg/dL [facility]: 83 0 [facility] 06/24/2021 Glucose, Fingerstick, Blood High Bedside Glucose 138 mg/dL 80- 115 mg/dL [facility]: 83 0 [facility] 06/23/2021 Glucose, Fingerstick, Blood Normal Bedside Glucose 110 mg/dL 80-115 mg/dL [facility]: 83 0 [facility] 06/23/2021 Glucose, Fingerstick, Blood High Bedside Glucose 158 mg/dL 80- 115 mg/dL [facility]: 83 0 [facility] 06/23/2021 Glucose, Fingerstick, Blood Normal Bedside Glucose 85 mg/dL 80- 115 mg/dL [facility]: 83 0 [facility] 06/23/2021 Glucose, Fingerstick, Blood High Bedside Glucose 191 mg/dL 80- 115 mg/dL [facility]: 83 0 [facility] 06/22/2021 Glucose, Fingerstick, Blood High Bedside Glucose 166 mg/dL 80- 115 mg/dL [facility]: 83 0 [facility] 06/22/2021 Glucose, Fingerstick, Blood Normal Bedside Glucose 99 mg/dL 80- 115 mg/dL [facility]: 83 0 [facility] 06/22/2021 Glucose, Fingerstick, Blood High Bedside Glucose 149 mg/dL 80- 115 mg/dL [facility]: 83 0 [facility] Past Encounters 07/04/2021 Screening for Malignant Neoplasm of Colon; Tobacco User; Amputated Toe; Foot Ulcer Due to Type 2 Diabetes Mellitus; Hearing Loss; Chronic Neck Pain Zohaib Ansari MD: [address] [place] [phone], Ph. 04/10/2021 Foot Ulcer Due to Type 2 Diabetes Mellitus; Type 2 Diabetes Mellitus without Complication; Hearing Loss Zohaib Ansari MD: [address] [place] [id number], Ph. 04/04/2021 Administration of SARS-CoV-2 Antigen Vaccine Zohaib Ansari MD: [address] [place] [phone], Ph. 12/27/2020 Administration of SARS-CoV-2 Antigen Vaccine JAGDEEP RiggsC: [address] [place] [phone], Ph. Social History Tobacco Smoking Status Heavy [...]
--- OUTSIDE RECORDS SUMMARY | 2021-08-04 00:10 | CCD ---
Author Author [facility] Organization [facility] Address Unknown Phone Unavailable Care Team Providers Care Landscape Painter Name Role Phone Prema Ansari MD Unavailable Unavailable Prema Ansari [...] Unavailable Unavailable Prema Ansari MD Unavailable Unavailable AnsariPrema MD Unavailable Unavailable Prema Ansari MD Unavailable Unavailable Prema Ansari MD Unavailable Unavailable Prema Ansari MD Unavailable Unavailable Prema Ansari MD Unavailable Unavailable Prema Ansari MD Unavailable Unavailable Prema Ansari MD Unavailable Unavailable Prema Ansari MD Unavailable Unavailable Prema Ansari MD Unavailable Unavailable Prema Ansari MD Unavailable Unavailable Prema Ansari MD Unavailable Unavailable Prema Ansari MD Unavailable Unavailable Ansari, Prema Penny MD Unavailable Unavailable AnsariPrema MD Unavailable Unavailable AnsariPrema MD Unavailable Unavailable AnsariPrema MD Unavailable Unavailable Prema Ansari MD Unavailable Unavailable Prema Ansari MD Unavailable Unavailable Prema Ansari MD Unavailable Unavailable Prema Ansari MD Unavailable Unavailable Prema Ansari MD Unavailable Unavailable Ansari, Prema Penny MD Unavailable Unavailable Prema Ansari MD Unavailable Unavailable Prema Ansari MD Unavailable Unavailable Prema Ansari MD Unavailable Unavailable Prema Ansari MD Unavailable Unavailable Prema Ansari MD Unavailable Unavailable Prema Ansari MD Unavailable Unavailable Prema Ansari MD Unavailable Unavailable Prema Ansari MD Unavailable Unavailable Prema Ansari MD Unavailable Unavailable AnsariPrema MD Unavailable Unavailable AnsariPrema MD Unavailable Unavailable Prema Ansari MD Unavailable Unavailable Prema Ansari MD Unavailable Unavailable Prema Ansari MD Unavailable Unavailable Prema Ansari MD Unavailable Unavailable Prema Asnari MD Unavailable Unavailable Prema Ansari MD Unavailable Unavailable Prema Ansari MD Unavailable Unavailable Prema Ansari MD Unavailable Unavailable Prema Ansari MD Unavailable Unavailable Prema Ansari MD Unavailable Unavailable Prema Ansari MD Unavailable Unavailable Prema Ansari MD Unavailable Unavailable Prema Ansari MD Unavailable Unavailable Prema Ansari MD Unavailable Unavailable rPema Ansari MD Unavailable Unavailable Prema Ansari MD Unavailable Unavailable Prema Ansari MD Unavailable Unavailable Prema Ansari MD Unavailable Unavailable Dhillon, Scott PA Unavailable Unavailable Dhillon, Scott PA Unavailable Unavailable Dhillon, Scott PA Unavailable Unavailable Dhillon, Scott PA Unavailable Unavailable Dhillon, Scott PA Unavailable Unavailable Dhillon, Scott PA Unavailable Unavailable Dhillon, Scott PA Unavailable Unavailable Dhillon, Scott PA Unavailable Unavailable Dhillon, Scott PA Unavailable Unavailable Dhillon, Scott PA Unavailable Unavailable Dhillon, Scott PA Unavailable Unavailable Dhillon, Scott PA Unavailable Unavailable Dhillon, Scott PA Unavailable Unavailable Bermudez, R Richy SOLDER TECHNICIAN Unavailable Unavailable Bermudez, R Richy SOLDER TECHNICIAN Unavailable Unavailable Bermudez, R Richy SOLDER TECHNICIAN Unavailable [facility]available [facility] Unavailable Unavailable Bhatti, B Meir DO Unavailable Unavailable Bhatti, B Meir DO Unavailable Unavailable Bhatti, B Meir DO Unavailable Unavailable Bhatti, B Meir DO Unavailable Unavailable Bhatti, B Meir DO Unavailable Unavailable Bhatti, B Meir DO Unavailable Unavailable Bhatti, B Meir DO Unavailable Unavailable Bhatti, B Meir DO Unavailable Unavailable Bhatti, B Meir DO Unavailable Unavailable Bhatti, B Meir DO Unavailable Unavailable Bhatti, B Meir DO Unavailable Unavailable Bhatti, B Meir DO Unavailable Unavailable Bhatti, B Meir DO Unavailable Unavailable Bhatti, B Meir DO Unavailable Unavailable Bhatti, B Meir DO Unavailable Unavailable Bhatti, B Meir DO Unavailable Unavailable GiovannyJulee Unavailable MAJAK, R KATHY DPM Unavailable Unavailable MAJAK, R KATHY DPM Unavailable Unavailable MAJAK, R KATHY DPM Unavailable Unavailable MAJAK, R KATHY DPM Unavailable Unavailable MAJAK, R KATHY DPM Unavailable Unavailable MAJAK, R KATHY DPM Unavailable Unavailable MAJAK, R KATHY DPM Unavailable Unavailable MAJAK, R KATHY DPM Unavailable Unavailable MAJAK, R KATHY DPM Unavailable Unavailable MAJAK, R KATHY DPM Unavailable Unavailable MAJAK, R KATHY DPM Unavailable Unavailable MAJAK, R KATHY DPM Unavailable Unavailable MAJAK, R KATHY DPM Unavailable Unavailable MAJAK, R KATHY DPM Unavailable Unavailable MAJAK, R KATHY DPM Unavailable Unavailable MAJAK, R KATHY DPM Unavailable Unavailable MAJAK, R KATHY DPM Unavailable Unavailable MAJAK, R KATHY DPM Unavailable Unavailable MAJAK, R KATHY DPM Unavailable Unavailable MAJAK, R KATHY DPM Unavailable Unavailable MAJAK, R KATHY DPM Unavailable Unavailable MAJAK, R KATHY DPM Unavailable Unavailable MAJAK, R KATHY DPM Unavailable Unavailable MAJAK, R KATHY DPM Unavailable Unavailable MAJAK, R KATHY DPM Unavailable Unavailable MAJAK, R KATHY DPM Unavailable Unavailable MAJAK, R KATHY DPM Unavailable Unavailable MAJAK, R KATHY DPM Unavailable Unavailable MAJAK, R KATHY DPM Unavailable Unavailable MAJAK, R KATHY DPM Unavailable Unavailable MAJAK, R KATHY DPM Unavailable Unavailable MAJAK, R KATHY DPM Unavailable Unavailable Graciela Munroe MD Unavailable Unavailable Graciela Munroe MD Unavailable Unavailable Graciela Munroe MD Unavailable Unavailable Graciela Munroe MD Unavailable Unavailable Graciela Munroe MD Unavailable Unavailable DiBella, Graciela Cleveland MD Unavailable Unavailable DiBella, Graciela Cleveland MD Unavailable Unavailable DiBella, Graciela Cleveland MD Unavailable Unavailable SYMENOW, G CHRISTOPHER PA Unavailable Unavailable SYMENOW, G CHRISTOPHER PA Unavailable Unavailable SYMENOW, G CHRISTOPHER PA Unavailable Unavailable SYMENOW, G CHRISTOPHER PA Unavailable Unavailable SYMENOW, G CHRISTOPHER PA Unavailable Unavailable SYMENOW, G CHRISTOPHER PA Unavailable Unavailable SYMENOW, G CHRISTOPHER PA Unavailable Unavailable SYMENOW, G CHRISTOPHER PA Unavailable Unavailable SYMENOW, G CHRISTOPHER PA Unavailable Unavailable SYMENOW, G CHRISTOPHER PA Unavailable Unavailable SYMENOW, G CHRISTOPHER PA Unavailable Unavailable SYMENOW, G CHRISTOPHER PA Unavailable Unavailable SYMENOW, G CHRISTOPHER PA Unavailable Unavailable SYMENOW, G CHRISTOPHER PA Unavailable Unavailable SYMENOW, G CHRISTOPHER PA Unavailable Unavailable SYMENOW, G CHRISTOPHER PA Unavailable Unavailable Dibari, Jacob Unavailable Dibari, Jacob Unavailable Dibari, Jacob Unavailable Dibari, Jacob Unavailable Dibari, Jacob Unavailable Dibari, Jacob Unavailable Dibari, Jacob Unavailable Dibari, Jacob Unavailable Dibari, Jacob Unavailable Dibari, Jacob Unavailable Dibari, Jacob Unavailable Dibari, Jacob Unavailable Nori Jameson Unavailable Wolf, Fredonia Lilia Unavailable Unavailable Wolf, Fred[place] Lilia Unavailable Unavailable Wolf, Fredonia Lilia Unavailable Unavailable Wolf, [place] Lilia Unavailable Unavailable Wolf, Fredonia Lilia Unavailable Unavailable Wolf, Fredonia Lilia Unavailable Unavailable Wolf, [place] Lilia Unavailable Unavailable Wolf, [place] Lilia Unavailable Unavailable Wolf, [place] Lilia Unavailable Unavailable Wolf, [place] Lilia Unavailable Unavailable Wolf, [place] Lilia Unavailable Unavailable Wolf, [place] Lilia Unavailable Unavailable Wolf, [place] Lilia Unavailable Unavailable Re-disclosure Warning The records that [...] is protected by Article 27-F of the [facility] Public Health law. If you continue you may have access to information: Regarding HIV / AIDS; Provided by facilities licensed or operated by the [facility] Office of Mental Health; or Provided by the [facility] Office for People With Developmental Disabilities. If such information is present, then the following [facility] mandated warning applies: This information has [...] law may result in a fine or long-term sentence or both. A general authorization for the release of medical or other information is NOT sufficient authorization for further disc losure. Allergies and Adverse Reactions Type Description Substance Reaction Status Data Source(s ) No Known Drug Allergies No Known Drug Allergies No Known Drug Aller gies active NETSMART ([facility] ) Allergy to substance Allergy to substance Allergy to substance JOSE ([facility]) Allergy to substance Allergy to substance Allergy to substance JOSE ([facility]) Family History Family Member Name Family Member Gender Family Member Status Date o f Status Description Data Source(s) Unknown Unknown Problem MEDENT ([facility], ) Encounters Encounter Providers Location Date Indications Data Source(s ) Zohaib Ansari MD: [address] [place] [address] [place] [phone], Ph. Attender: Zohaib Ansari MD [facility] Medical 08/03/2021 12:00:00 AM EST JOSE ([facility]) Outpatient Attender: Richy Bermudez NP [facility] 07/27/2021 01:00:00 AM EDT - 07/27/2021 01:00:00 AM EDT [facility] ([facility] Attender: Richy Bermudez NP 07/27/2021 12:00:00 AM EDT [facility] ([facility]-billable [facility] 07/23/2021 12:00:00 AM EDT [facility] ([facility]) [facility] 01:15:00 PM EDT MEDENT ([facility] Emergency Attender: Scott BORGES 07/10 12:57:00 AM EDT - 07/10/2021 01:34:[address] [facility] Patient discharged. Emergency Attender: Cristofer Munroe MDAttender: Jacob adkins 07/09/2021 07:54:00 AM EDT - 07/09/2021 09:54:00 AM EDT [facility] Patient discharged. Office Visit Attender: KATHY SAXENA [facility] Office 06/22 01:15:00 PM EDT MEDENT ([facility] Zohaib Ansari MD: [address] [place] [address], Ph. Attender: Zohaib Ansari MD [facility] Medical 07/04/2021 12:00:00 AM EDT JOSE ([facility]) Zohaib Ansari MD: [address] [place] [phone], Ph. Attender: Zohaib Ansari MD [facility] Medical 07/04/2021 12:00:00 AM EDT JOSE ([facility]) Zohaib Ansari MD: [address] [place] [address], Ph. Attender: Zohiab Ansari MD [facility] Medical 07/04/2021 12:00:00 AM EDT JOSE ([facility]) non-billable [facility] 06/25/2021 12:00:00 AM EDT [facility] ([facility]) Outpatient Attender: KATHY SAXENA [facility] 05/24 02:30:00 PM EDT MEDENT ([facility] Emergency Attender: Meir Bhatti DO EMERGENCY ROOM-ER 08:46:00 PM EDT - 06/12/2021 11:40:[address] [facility] Patient discharged. Outpatient Attender: Meir Bhatti DOConsultant: Arsen Kearns [id number] 06/12/2021 07:38:00 PM EDT [facility] 06/08/2021 01:00:00 AM EDT - 021 09:57:02 AM EDT [facility] ([facility]) [place] [address] [facility] [address] 05/24/2021 12:00:00 AM EDT eCW1 ([facility]) non-billable [facility] 05/23/2021 12:00:00 AM EDT [facility] ([facility]) Emergency Attender: BRENNAN BORGES 05/16/2021 09:05:00 PM EDT - 05/16/2021 09:52:[address] [facility] Patient discharged. Outpatient Attender: Richy Bermudez NP [facility] 05/03/2021 01:30:00 AM EDT - 05/03/2021 01:30:00 AM EDT [facility]) Attender: Richy Bermudez NP 05/03/2021 12:00:00 AM EDT [facility] ([facility]) Office Visit Attender: KATHY SAXENA [facility] Office 03/23 01:15:00 PM EDT MEDENT ([facility] Zohaib Ansari MD: [address] [place] [address], Ph. Attender: Zohaib Ansari MD [facility] Medical 04/10/2021 12:00:00 AM EDT JOSE ([facility]) Zohaib Ansari MD: [address] [place] [phone], Ph. Attender: Zohaib Ansari MD [facility] Medical 04/10/2021 12:00:00 AM EDT JOSE ([facility]) Zohaib Ansari MD: [address] [place] [address], Ph. Attender: Zohaib Ansari MD [facility] Medical 04/10/2021 12:00:00 AM EDT JOSE ([facility]) Zohaib Ansari MD: [address] [place] [address], Ph. Attender: Zohaib Ansari MD [facility] Medical 04/10/2021 12:00:00 AM EDT JOSE ([facility]) Outpatient Attender: Richy Bermudez NP [facility] 04/05/2021 11:30:00 AM EDT - 04/05/2021 11:30:00 AM EDT [facility] ([facility]) Attender: Richy Bermudez NP 04/05/2021 12:00:00 AM EDT [facility] ([facility]) Zohaib Ansari MD: [address] [place] [phone], Ph. Attender: Zohaib Ansari MD [facility] Medical 04/04/2021 12:00:00 AM EDT JOSE ([facility]) Zohaib Ansari MD: [address] [place] [address], Ph. Attender: Zohaib Ansari MD [facility] Medical 04/04/2021 12:00:00 AM EDT JOSE ([facility]) Zohaib Ansari MD: [address] [place] [address], Ph. Attender: Zohaib Ansari MD [facility] 04/04/2021 12:00:00 AM EDT JOSE ([facility]) Zohaib Ansari MD: [address] [place] [address], Ph. Attender: Zohaib Ansari MD [facility] Medical 04/04/2021 12:00:00 AM EDT JOSE ([facility]) Zohaib Ansari MD: [address] [place] [address], Ph. Attender: Zohaib Ansari MD [facility] 04/04/2021 12:00:00 AM EDT JOSE ([facility]) Office Visit Attender: KATHY SAXENA [facility] 03/22 01:15:00 PM EDT MEDENT ([facility] Office Visit Attender: KATHY SAXENA [facility] 02/2021 01:15:00 PM EDT MED[facility] ([facility] Brief Individual Psychotherapy - 30 min [facility] 03/27/2021 12:30:00 PM EDT - 03/27/2021 12:30:00 PM EDT [facility] Attender: Julee Baltazar 03/27/2021 12:00:00 AM EDT [facility] ([facility]) [place] [address] [facility] [address] 03/22/2021 12:00:00 AM EDT eCW1 ([facility]) [place] [address] [facility] [address] 03/21/2021 12:00:00 AM EDT eCW1 ([facility]) Extended Individual Psychotherapy - 45 min Attender: Nori Jameson [facility] 03/07/2021 01:00:00 AM EDT - 03/07/2021 01:00:00 AM EDT [facility] ([facility]) Attender: Nori Jameson 03/07/2021 12:00:00 AM EDT [facility] ([facility]) Outpatient Attender: Richy Bermudez NP [facility] 01/17/2021 01:00:00 AM EDT - 01/17/2021 01:00:00 AM EDT [facility] ([facility]) Attender: Richy Bermudez NP 01/17/2021 12:00:00 AM EDT [facility] ([facility]) JAGDEEP RiggsC: [address] [place] [address], Ph. Attender: Lilia Wolf [facility] 12/27/2020 12:00:00 AM EDT JOSE ([facility]) JAGDEEP RiggsC: [address] [place] [address], Ph. Attender: Lilia Wolf [facility] 12/27/2020 12:00:00 AM EDT JOSE ([facility]) JAGDEEP RiggsC: [address] [place] [address], Ph. Attender: Lilia Wolf [facility] 12/27/2020 12:00:00 AM EDT [place] ([facility]) RANDALL Riggs-C: [address] [place] [address], Ph. Attender: Lilia Wolf [facility] 12/27/2020 12:00:00 AM EDT [place] ([facility]) RANDALL Riggs-C: [address] [place] [address], Ph. Attender: Lilia Wolf [facility] 12/27/2020 12:00:00 AM EDT [place] ([facility]) RANDALL Riggs-C: [address] [place] [address], Ph. Attender: Lilia Wolf [facility] 12/27/2020 12:00:00 AM EDT [place] ([facility]) Functional Status Immunizations Vaccine Date Status Description Data Source(s) COVID-19, mRNA, LNP-S, PF, 100 mcg/0.5 mL dose (Modern a) 04/04/2021 10:11:32 AM EDT completed .5 mL [place] ([facility]) COVID-19, mRNA, LNP-S, PF, 100 mcg/0.5 mL dose 04/04/2021 10 :11:32 AM EDT completed .5 mL [place] ([facility]) COVID-19, mRNA, LNP-S, PF, 100 mcg/0.5 mL dose 04/04/2021 10 :11:32 AM EDT completed .5 mL [place] ([facility]) COVID-19, mRNA, LNP-S, PF, 100 mcg/0.5 mL dose 04/04/2021 10 :11:32 AM EDT completed .5 mL [facility]SE ([facility]) COVID-19, mRNA, LNP-S, PF, 100 mcg/0.5 mL dose 04/04/2021 10 :11:32 AM EDT completed .5 mL [facility]SE ([facility]) COVID-19 VACCINE Moderna 04/04/2021 12:00:00 AM EDT completed [place] Vaccine Series Complete: YESThis Data wa s Submitted to [facility] Via [employer]. COVID-19, mRNA, LNP-S, PF, 100 mcg/0.5 mL dose (Modern a) 12/27/2020 11:29:00 AM EDT completed .5 mL JOSE ([facility]) COVID-19, mRNA, LNP-S, PF, 100 mcg/0.5 mL dose 12/27/2020 11 :29:00 AM EDT completed .5 mL [place] ([facility]) COVID-19, mRNA, LNP-S, PF, 100 mcg/0.5 mL dose 12/27/2020 11 :29:00 AM EDT completed .5 mL [facility] ([facility]) COVID-19, mRNA, LNP-S, PF, 100 mcg/0.5 mL dose 12/27/2020 11 :29:00 AM EDT completed .5 mL [place] ([facility]) COVID-19, mRNA, LNP-S, PF, 100 mcg/0.5 mL dose 12/27/2020 11 :29:00 AM EDT completed .5 mL [facility] ([facility]) COVID-19, mRNA, LNP-S, PF, 100 mcg/0.5 mL dose 12/27/2020 11 :29:00 AM EDT completed .5 mL [facility] ([facility]) COVID-19 VACCINE Moderna 12/27/2020 12:00:00 AM EDT completed [place] Vaccine Series Complete: NOThis Data was Submitted to [facility] Via [employer]. Medications Medication Brand Name Start Date Product Form Dose Route Admi nistrative Instructions Pharmacy Instructions Status Indications Reaction Description Data Source(s) Gabapentin 100 MG Gabapentin 06/08/2021 01:00:00 AM EDT 1.0 {tab let} completed NETSMART ([facility]) Levemir FlexTouch 100 UNIT/ML Levemir FlexTouch 06/08/2021 01:00:00 AM EDT 45.0 {Units} completed NETSMART ([facility]) MetFORMIN HCl 500 MG MetFORMIN HCl 06/08/2021 01:00:00 AM EDT 1.0 {tablet} completed [facility]SMART ([facility]) Docusate Sodium 100 MG Docusate Sodium 06/08/2021 01:00:00 AM EDT completed NETSMART ([facility]) Cefdinir 300 MG Cefdinir 06/08/2021 01:00:00 AM EDT 2.0 {tablet} completed [facility]SMART ([facility]) RisperiDONE 2 MG RisperiDONE 06/08/2021 01:00:00 AM EDT 1.0 {tab let} completed [facility]SMART ([facility]) Cephalexin 500 MG Cephalexin 06/08/2021 01:00:00 AM EDT 1.0 {tab let} completed [facility]SMART ([facility]) 1.5 ML paliperidone palmitate 156 MG/ML Prefilled Syri nge [Invega] Invega Sustenna 04/13/2021 12:00:00 AM EDT 234 mg/1.5 compl eted <td ID="MedicationRxNorm_1">575384</td><td ID="MedicationMedication_1">Invega Sustenna</td><td ID="MedicationRoute_1">intramuscularly</td><td ID="MedicationRouteConcept_1"></td><td ID="MedicationStartDate_1">04/13/2021</td><td ID="MedicationStopDate_1"></td><td ID="MedicationDosageFrequency_1">every four weeks</td><td ID="MedicationDuration_1">28</td><td ID="MedicationFormulaStrength_1">234 mg/1.5 mL</td><td ID="MedicationDosageForm_1">syringe</td><td ID="MedicationDosageFormCode_1"></td><td ID="MedicationDosageDescription_1"> </td><td ID="MedicationMedicationId_1">[id number]</td><td ID="MedicationAccount_1">[id number]</td><td ID="MedicationNpid_1">[id number]</td><td ID="MedicationAuthorFirstName_1">Richy</td><td ID="MedicationAuthorLastName_1">Bermudez</td><td ID="MedicationTaxonomyCode_1">[id number]</td><td ID="MedicationTaxonomyDesc_1">Nurse Practitioner</td><td ID="MedicationPhoneNumber_1">[phone]</td> [facility] ([facility]) Risperidone 2 MG Oral Tablet risperidone 04/11/2021 12:00:00 AM EDT 2 mg by mouth completed <td ID="Medica tionRxNorm_2">392328</td><td ID="MedicationMedication_2">risperidone</td><td ID="MedicationRoute_2">by mouth</td><td ID="MedicationRouteConcept_2">O02252</td><td ID="MedicationStartDate_2">04/11/2021</td><td ID="MedicationStopDate_2">06/10/2021</td><td ID="MedicationDosageFrequency_2">twice a day</td><td ID="MedicationDuration_2">30</td><td ID="MedicationFormulaStrength_2">2 mg</td><td ID="MedicationDosageForm_2">tablet</td><td ID="MedicationDosageFormCode_2"></td><td ID="MedicationDosageDescription_2"></td><td ID="MedicationMedicationId_2">[id number]</td><td ID="MedicationAccount_2">[id number]</td><td ID="MedicationNpid_2">[id number]</td><td ID="MedicationAuthorFirstName_2">Richy</td><td ID="MedicationAuthorLastName_2">Bermudez</td><td ID="MedicationTaxonomyCode_2">[id number]</td><td ID="MedicationTaxonomyDesc_2">Nurse Practitioner</td><td ID="MedicationPhoneNumber_2">[phone]</td> [facility] ([facility]) Cephalexin 500 MG Oral Tablet Cephalexin 03/27/2021 12:00:00 AM EDT ORAL active MEDENT ([facility] Ketoconazole 20 MG/ML Topical Cream Ketoconazole 2 % Ketocon azole 2 % 03/22/2021 12:00:00 AM EDT 1.0 {application} active Ketoconazole 2 % eCW1 ([facility]) Ketoconazole 20 MG/ML Topical Cream Ketoconazole 2 % Ketocon azole 2 % 03/22/2021 12:00:00 AM EDT 1.0 {application} active Ketoconazole 2 % eCW1 ([facility]) Ketoconazole 20 MG/ML Topical Cream Ketoconazole 2 % Ketocon azole 2 % 03/22/2021 12:00:00 AM EDT 1.0 {application} active Ketoconazole 2 % eCW1 ([facility]) aripiprazole 10 MG Oral Tablet aripiprazole 12/26/2020 12:00:00 AM ED T 10 mg by mouth completed <td ID="Medica tionRxNorm_1">[id number]</td><td ID="MedicationMedication_1">aripiprazole</td><td ID="MedicationRoute_1">by mouth</td><td ID="MedicationRouteConcept_1">Q88902</td><td ID="MedicationStartDate_1">12/26/2020</td><td ID="MedicationStopDate_1"></td><td ID="MedicationDosageFrequency_1">once a day</td><td ID="MedicationDuration_1">30</td><td ID="MedicationFormulaStrength_1">10 mg</td><td ID="MedicationDosageForm_1">tablet</td><td ID="MedicationDosageFormCode_1"></td><td ID="MedicationDosageDescription_1"></td><td ID="MedicationMedicationId_1">[id number]</td><td ID="MedicationAccount_1">[id number]</td><td ID="MedicationNpid_1">[id number]</td><td ID="MedicationAuthorFirstName_1">Richy</td><td ID="MedicationAuthorLastName_1">Bermudez</td><td ID="MedicationTaxonomyCode_1">[id number]</td><td ID="MedicationTaxonomyDesc_1">Nurse Practitioner</td><td ID="MedicationPhoneNumber_1">[phone]</td> [facility] ([facility]) aripiprazole 10 MG Oral Tablet aripiprazole 10 mg tabl et aripiprazole 10 mg tablet completed aripiprazole 10 MG Oral Tablet JOSE ([facility]) Insurance Providers Payer name Policy type / Coverage type Policy ID Covered constitution party ID Covered constitution party's relationship to chavez Policy Chavez Plan Information [facility] MEDICARE DIVISION [id number] S [id number] [place]ICARE [place] [id number] S [id number] Medicare P [id number] S [id number] Medicaid S [id number] S [id number] Medicaid S [id number] S [id number] MEDICAID [id number] S [id number] [place]ED[place] [id number] SP [id number] MEDICAID M [id number] S [id number] MEDICARE C [id number] S [id number] MEDICAID [id number] SP [id number] SELF PAY UNAVAILABLE S UNAVAILA BLE MEDICARE [id number] SP [id number] [facility] MEDICAID [id number] SP [id number] X [place] Medicare Primary [id number] Self [id number] [place] Medicare Primary [id number] Self [id number] SELF PAY ONLY [id number] SP [id number] Medicare S [id number] S [id number] MEDICARE [id number] SP [id number] A MEDICARE [id number] SP [id number] SELF PAY O [id number] S [id number] Problems, Conditions, and Diagnoses Code Display Name Description Problem Type Effective Dates Data Source(s) E11.649 Type 2 diabetes mellitus with hypoglycem ia without coma TYPE 2 DIABETES MELLITUS WITH HYPOGLYCEMIA WITHOUT Diagnosis 07/10/2021 12:57:00 AM [facility] E16.2 Hypoglycemia, unspecified HYPOGLYCEMIA, UNSPECIFIED Di agnosis 07/10/2021 12:57:00 AM [facility] Z79.84 NURSING HOME (CURRENT) USE OF ORAL HYPOGLYC EMIC DRUGS BOTTOM TURNER (CURRENT) USE OF ORAL HYPOGLYCEMIC DRUGS Diagnosis 07/09/2021 07:54:00 AM [facility] Z79.82 skilled nursing (current) use of aspirin NURSING HOME (CU RRENT) USE OF ASPIRIN Diagnosis 07/09/2021 07:54:00 AM [facility] Z79.4 ocean transportation intermediary (current) use of insulin NURSING HOME (CU RRENT) USE OF INSULIN Diagnosis 07/09/2021 07:54:00 AM [facility] F17.210 Nicotine dependence, cigarettes, uncompl icated NICOTINE DEPENDENCE, CIGARETTES, UNCOMPLICATED Diagnosis 07/09/2021 07:54:00 AM [facility] E11.9 Type 2 diabetes mellitus without complic ations TYPE 2 DIABETES MELLITUS WITHOUT COMPLICATIONS Diagnosis 07/09/2021 07:54:00 AM [facility] K59.00 Constipation, unspecified CONSTIPATION, UNSPECIFIED Di agnosis 07/09/2021 07:54:00 AM [facility] M54.2 Cervicalgia CERVICALGIA Diagnosis 07/09/2021 07:54:00 AM [facility] Z79.899 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 principal (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) drug therapy O THER NURSING HOME (CURRENT) DRUG THERAPY Diagnosis 06/12/2021 08:46:00 PM [facility] Z20.822 CONTACT WITH AND (SUSPECTED) EXPOSURE TO COVID-19 CONTACT WITH AND (SUSPECTED) EXPOSURE TO COVID-19 Diagnosis 06/12/2021 08:46:00 PM [facility] E11.40 Type 2 diabetes mellitus with diabetic n europathy, unspecified TYPE 2 DIABETES MELLITUS WITH DIABETIC NEUROPATHY, Diagnosis 06/12/2021 08:46:00 PM [facility] M86.671 Other chronic osteomyelitis, right ankle and foot OTHER CHRONIC OSTEOMYELITIS, RIGHT ANKLE AND FOOT Diagnosis 06/12/2021 08:46:00 PM [facility] M79.671 Pain in right foot PAIN IN RIGHT FOOT Diagnosis 08:46:00 PM [facility] Z79.2 skilled nursing (current) use of antibiotics L CLARK TERM (CURRENT) USE OF ANTIBIOTICS Diagnosis 05/16/2021 09:05:00 PM [facility] l L97.519 Non-pressure chronic ulcer o f other part of right foot with unspecified severity NON-PRS CHRONIC ULCER OTH PRT RIGHT FOOT W UNSP SE Diagnosis 05/16/2021 09:05:00 PM [facility] E11.621 Type 2 diabetes mellitus with foot ulcer TYPE 2 DIABETES MELLITUS WITH FOOT ULCER Diagnosis 05/16/2021 09:05:00 PM [facility] l Z48.00 Encounter for change or removal of nonsu rgical wound dressing ENCOUNTER FOR CHANGE OR REMOVAL OF NONSURG WOUND DRESSING Diagnosis 2020 09:05:[address] [facility] [id number] Tobacco user Tobacco User Problem 08/03/2021 12:00:00 A M GARRICK GARCIA ([facility]) [id number] Schizoaffective disorder Schizoaffective Disorder Prob ailin 08/03/2021 12:00:00 AM GARRICK GARCIA ([facility]) F12.10 Cannabis abuse, uncomplicated Cannabis Use Disorder, M ild Condition 07/27/2021 12:00:00 AM EDT [facility] ([facility]) Z72.0 Tobacco use Tobacco Use Disorder, Mild Condition 1 09/26/2020 12:00:00 AM EDT [facility] ([facility]) F20.9 Schizophrenia, unspecified Schizophrenia Condition 07/27/2021 12:00:00 AM EDT [facility] ([facility]) [id number] Constipation Constipation Problem 07/16/2021 12:00:00 A M EDT JOSE ([facility]) E10.621 Type 1 diabetes mellitus with foot ulcer Type 1 diabetes mellitus with foot ulcer Problem 05/29/2021 01:00:00 AM EDT NETSMARLo ([facility]) [id number] Paranoid schizophrenia Paranoid schizophrenia Conditio n 05/09/2021 12:00:00 AM EDT [facility]Vick[facility] ([facility]) [id number] Paranoid schizophrenia Paranoid schizophrenia Conditio n 05/09/2021 12:00:00 AM EDT [facility] ([facility]) [id number] Paranoid schizophrenia Paranoid schizophrenia Conditio n 05/09/2021 12:00:00 AM EDT [facility] ([facility]) [id number] Homeless Homeless Problem 05/01/2021 12:00:00 AM ED Lo GARCIA ([facility]) [id number] Homeless Homeless Problem 05/01/2021 12:00:00 AM ED Lo GARCIA ([facility]) [id number] Homeless Homeless Problem 05/01/2021 12:00:00 AM ED Lo GARCIA ([facility]) [id number] Hearing loss Hearing Loss Problem 04/10/2021 12:00:00 A M EDT [place] ([facility]) [id number] Hearing loss Hearing Loss Problem 04/10/2021 12:00:00 A M EDT [place] ([facility]) [id number] Hearing loss Hearing Loss Problem 04/10/2021 12:00:00 A M EDT [place] ([facility]) [id number] Hearing loss Hearing Loss Problem 04/10/2021 12:00:00 A M EDT [place] ([facility]) Z48.89 Convalescence after surgery Convalescence after surger y Problem 03/28/2021 12:00:00 AM EDT - 05/05/2021 12:00:00 AM EDT [facility] ([facility] L89.891 Pressure ulcer of right foot Pressure ulcer of right f oot Problem 11/02/2020 12:00:00 AM EST [facility] ([facility] L89.892 Pressure ulcer of right foot stage 2 Pre ssure ulcer of right foot stage 2 Problem 10/18/2020 12:00:00 AM EST - 11/02/2020 12:00:00 AM EST [facility] ([facility] Surgeries/Procedures Procedure Description Date Indications Data Source(s) [facility] Telemed E/M Lvl 3--Est pt 07/27/2021 12:00:00 AM EDT - 07/27/2021 12:00:00 AM EDT [facility] ([facility]) [facility] Telemed E/M Lvl 3--Est pt 07/27/2021 12:00:00 AM E DT [facility] ([facility]) Ostectomy Partial Excision 5TH Metatarsal Head (Fengionette) 06/14/2021 12:00:00 AM EDT [facility] ([facility] 25 MINUTES 06/14/2021 12:00:00 AM EDT [facility] ([facility] OFFICE OUTPATIENT VISIT 15 MINUTES 06/13/2021 12:00:00 AM EDT [facility] ([facility] DEBRIDEMENT SUBCUTANEOUS TISSUE 20 SQ CM/< 05/24/2021 12:00:00 AM EDT [facility] ([facility] DEBRIDEMENT NAIL ANY METHOD 6/> 05/24/2021 12:00:00 AM EDT [facility] ([facility] Telemed E/M Lvl 3--Est pt 05/03/2021 12:00:00 AM EDT - 05/03/2021 12:00:00 AM EDT [facility] ([facility]) [facility] Telemed E/M Lvl 3--Est pt 05/03/2021 12:00:00 AM E DT [facility] ([facility]) DEBRIDEMENT SUBCUTANEOUS TISSUE 20 SQ CM/< 04/27/2021 12:00:00 AM EDT [facility] ([facility] MHC Telemed E/M Lvl 3--Est pt 04/05/2021 12:00:00 AM EDT - 04/05/2021 12:00:00 AM EDT [facility] ([facility]) [facility] Telemed E/M Lvl 3--Est pt 04/05/2021 12:00:00 AM E DT [facility] ([facility]) Brief Individual Psychotherapy - 30 min 03/27/2021 12:00:00 AM EDT - 03/27/2021 12:00:00 AM EDT [facility] ([facility]) Brief Individual Psychotherapy - 30 min 03/27/2021 12: 00:00 AM EDT [facility] ([facility]) Med: Derm 1% Lidocaine with Epinephrine Injection Intr adermally to marked areas 03/22/2021 12:00:00 AM EDT eC1 ([facility]) [facility] HOSPITAL CARE/DAY 25 MINUTES 03/07/2021 12:00:00 AM EDT [facility] ([facility] Extended Individual Psychotherapy - 45 min 03/07/2021 12:00:00 AM EDT - 03/07/2021 12:00:00 AM EDT [facility] ([facility]) Extended Individual Psychotherapy - 45 min 12:00:00 AM EDT [facility] ([facility]) [facility] HOSPITAL CARE/DAY 35 MINUTES 03/03/2021 12:00:00 AM EDT [facility] ([facility] HOSPITAL CARE/DAY 35 MINUTES 02/26/2021 12:00:00 AM EDT [facility] ([facility] DEBRIDEMENT BONE MUSCLE &/FASCIA 20 SQ CM/< 02/20/2021 12:00:00 AM EDT [facility] ([facility] HOSPITAL CARE/DAY 35 MINUTES 02/19/2021 12:00:00 AM EDT [facility] ([facility] DEBRIDEMENT SUBCUTANEOUS TISSUE 20 SQ CM/< 01/30/2021 12:00:00 AM EDT [facility] ([facility] PARING/CUTTING BENIGN HYPERKERATOTIC LESION 2-4 2020 12:00:00 AM EDT [facility] ([facility] DEBRIDEMENT NAIL ANY METHOD 6/> 01/30/2021 12:00:00 AM EDT [facility] ([facility] MHC Telemed E/M Lvl 3--Est pt 01/17/2021 12:00:00 AM EDT - 01/17/2021 12:00:00 AM EDT [facility] ([facility]) MHC Telemed E/M Lvl 3--Est pt 01/17/2021 12:00:00 AM E DT [facility] ([facility]) DEBRIDEMENT OPEN WOUND 20 SQ CM/< 10/24/2020 [...] AM EDT [facility] ([facility] Results ID Date Data Source [id number] 07/10/2021 01:42:00 AM EDT [facility] Patient: LUCIA MCNAIR Rep ort - [facility].VisitID: [id number] [place] [address] [phone], MRegistration Date/Time: 07/10/2021 00:39 Weight:98.8 kg (S). Height/Length:69 inches (S). BMI:32.2 PAST HISTORYMedications:Aspirin Oral (Tablet Chewable 81 mg), daily, last dose 07/08/2021.BD US Pen Injection.Gabapentin Oral 100 mg, 3x a day, last dose yesterday.Levemir FlexTouch Subcutaneous 100, daily as needed, last dose yesterday.metFORMIN HCl Oral 500 mg, 2x a day, last dose yesterday.risperiDONE Oral 2 mg, 2x a day, last dose yesterday. Allergies:No Known Drug Allergy. FAMILY HISTORY(non contributory). (Electronically signed by Scott Dhillon PA-C 07/10/2021 00:49) Name Value Range Interpretation Code Description Data Anais rce(s) Supporting Document(s) ID Date Data Source [id number] 07/09/2021 10:05:00 AM EDT [facility] Patient: LUCIA MCNAIR Rep ort - [facility].VisitID: [id number] [place] [address] [phone], MRegistration Date/Time: 07/09/2021 07:10 Weight:98.8 kg (S). Height/Length:69 inches (S). BMI:32.2 FAMILY HISTORYNo significant family medical history. (Electronically signed by Cristofer Munroe MD 07/09/2021 08:02) Name Value Range Interpretation Code Description Data Anais rce(s) Supporting Document(s) ID Date Data Source [id number] 07/04/2021 01:03:00 PM EDT [facility]) Name Value Range Interpretation Code Description Data Anais rce(s) Supporting Document(s) Hemoglobin A1c/Hemoglobin.total in Blood 8.5 % Abnormal (applies to non- numeric results) [facility]) ID Date Data Source [id number] 07/04/2021 01:03:00 PM EDT [facility]) Name Value Range Interpretation Code Description Data Anais rce(s) Supporting Document(s) Hemoglobin A1c/Hemoglobin.total in Blood 8.5 % Abnormal (applies to non- numeric results) H[facility]) ID Date Data Source [id number] 07/04/2021 01:03:00 PM EDT [facility]) Name Value Range Interpretation Code Description Data Anais rce(s) Supporting Document(s) Hemoglobin A1c/Hemoglobin.total in Blood 8.5 % Abnormal (applies to non- numeric results) Hba1C JOSE ([facility]) ID Date Data Source [id number] 06/29/2021 11:36:00 AM EDT [facility]) Name Value Range Interpretation Code Description Data Anais rce(s) Supporting Document(s) bedside glucose 146 mg/dL 80-115 Above high normal Bedside Gluco se [place] ([facility]) ID Date Data Source [id number] 06/29/2021 11:36:00 AM EDT [facility]) Name Value Range Interpretation Code Description Data Anais rce(s) Supporting Document(s) bedside glucose 146 mg/dL 80-115 Above high normal Bedside Gluco se [facility]) ID Date Data Source [id number] 06/29/2021 11:36:00 AM EDT [facility]) Name Value Range Interpretation Code Description Data Anais rce(s) Supporting Document(s) bedside glucose 146 mg/dL 80-115 Above high normal Bedside Gluco se [place] ([facility]) ID Date Data Source [id number] 06/29/2021 05:13:00 AM EDT [facility]) Name Value Range Interpretation Code Description Data Anais rce(s) Supporting Document(s) bedside glucose 104 mg/dL 80-115 Bedside Glucose [place] ([facility]) ID Date Data Source [id number] 06/29/2021 05:13:00 AM EDT [facility]) Name Value Range Interpretation Code Description Data Anais rce(s) Supporting Document(s) bedside glucose 104 mg/dL 80-115 Bedside Glucose ATHE NA ([facility]) ID Date Data Source [id number] 06/29/2021 05:13:00 AM EDT [facility]) Name Value Range Interpretation Code Description Data Anais rce(s) Supporting Document(s) bedside glucose 104 mg/dL 80-115 Bedside Glucose ATHJessie PADILLA ([facility]) ID Date Data Source [id number] 06/28/2021 08:30:00 PM [facility] Name Value Range Interpretation Code Description Data Anais rce(s) Supporting Document(s) bedside glucose 123 mg/dL 80-115 Above high normal Bedside [facility]uco se [facility] ID Date Data Source [id number] 06/28/2021 08:30:00 PM EDT [facility]) Name Value Range Interpretation Code Description Data Anais rce(s) Supporting Document(s) bedside glucose 123 mg/dL 80-115 Above high normal Bedside Gluco se JOSE ([facility]) ID Date Data Source [id number] 06/28/2021 08:30:00 PM EDT [facility]) Name Value Range Interpretation Code Description Data Anais rce(s) Supporting Document(s) bedside glucose 123 mg/dL 80-115 Above high normal Bedside Gluco se JOSE ([facility]) ID Date Data Source [id number] 06/28/2021 01:54:00 PM EDT [facility]) Name Value Range Interpretation Code Description Data Anais rce(s) Supporting Document(s) bedside glucose 71 mg/dL 80-115 Below low normal Bedside [facility]os e [facility] ID Date Data Source [id number] 06/28/2021 01:54:00 PM EDT [facility]) Name Value Range Interpretation Code Description Data Anais rce(s) Supporting Document(s) bedside glucose 71 mg/dL 80-115 Below low normal Bedside [facility]ucos e [facility] ID Date Data Source [id number] 06/28/2021 01:54:00 PM EDT [facility]) Name Value Range Interpretation Code Description Data Anais rce(s) Supporting Document(s) bedside glucose 71 mg/dL 80-115 Below low normal Bedside [facility]os e [facility] ID Date Data Source [id number] 06/28/2021 11:49:00 AM EDT [facility]) Name Value Range Interpretation Code Description Data Anais rce(s) Supporting Document(s) bedside glucose 173 mg/dL 80-115 Above high normal Bedside Gluco se [facility]) ID Date Data Source [id number] 06/28/2021 11:49:00 AM EDT [facility]) Name Value Range Interpretation Code Description Data Anais rce(s) Supporting Document(s) bedside glucose 173 mg/dL 80-115 Above high normal Bedside Gluco se [facility]) ID Date Data Source [id number] 06/28/2021 11:49:00 AM EDT [facility]) Name Value Range Interpretation Code Description Data Anais rce(s) Supporting Document(s) bedside glucose 173 mg/dL 80-115 Above high normal Bedside Gluco se [facility]) ID Date Data Source [id number] 06/28/2021 05:28:00 AM EDT [facility]) Name Value Range Interpretation Code Description Data Anais rce(s) Supporting Document(s) bedside glucose 120 mg/dL 80-115 Above high normal Bedside Gluco se [facility]) ID Date Data Source [id number] 06/28/2021 05:28:00 AM EDT [facility]) Name Value Range Interpretation Code Description Data Anais rce(s) Supporting Document(s) bedside glucose 120 mg/dL 80-115 Above high normal Bedside Gluco se [place] ([facility]) ID Date Data Source [id number] 06/28/2021 05:28:00 AM EDT [facility]) Name Value Range Interpretation Code Description Data Anais rce(s) Supporting Document(s) bedside glucose 120 mg/dL 80-115 Above high normal Bedside Gluco se [place] ([facility]) ID Date Data Source [id number] 06/27/2021 08:09:00 PM EDT [facility]) Name Value Range Interpretation Code Description Data Anais rce(s) Supporting Document(s) bedside glucose 165 mg/dL 80-115 Above high normal Bedside Gluco se [place] ([facility]) ID Date Data Source [id number] 06/27/2021 08:09:00 PM EDT [facility]) Name Value Range Interpretation Code Description Data Anais rce(s) Supporting Document(s) bedside glucose 165 mg/dL 80-115 Above high normal Bedside Gluco se [place] ([facility]) ID Date Data Source [id number] 06/27/2021 08:09:00 PM EDT [facility]) Name Value Range Interpretation Code Description Data Anais rce(s) Supporting Document(s) bedside glucose 165 mg/dL 80-115 Above high normal Bedside Gluco se [facility]) ID Date Data Source [id number] 06/27/2021 04:29:00 PM EDT JOSE ([facility]) Name Value Range Interpretation Code Description Data Anais rce(s) Supporting Document(s) bedside glucose 86 mg/dL 80-115 Bedside Glucose ATHJessie PADILLA ([facility]) ID Date Data Source [id number] 06/27/2021 04:29:00 PM EDT JOSE ([facility]) Name Value Range Interpretation Code Description Data Anais rce(s) Supporting Document(s) bedside glucose 86 mg/dL 80-115 Bedside Glucose ATHJessie PADILLA ([facility]) ID Date Data Source [id number] 06/27/2021 04:29:00 PM EDT [facility]) Name Value Range Interpretation Code Description Data Anais rce(s) Supporting Document(s) bedside glucose 86 mg/dL 80-115 Bedside Glucose ATHJessie PADILLA ([facility]) ID Date Data Source [id number] 06/27/2021 11:18:00 AM EDT [facility]) Name Value Range Interpretation Code Description Data Anais rce(s) Supporting Document(s) bedside glucose 168 mg/dL 80-115 Above high normal Bedside Gluco se [facility]) ID Date Data Source [id number] 06/27/2021 11:18:00 AM EDT [facility]) Name Value Range Interpretation Code Description Data Anais rce(s) Supporting Document(s) bedside glucose 168 mg/dL 80-115 Above high normal Bedside Gluco se [facility]) ID Date Data Source [id number] 06/27/2021 11:18:00 AM EDT [facility]) Name Value Range Interpretation Code Description Data Anais rce(s) Supporting Document(s) bedside glucose 168 mg/dL 80-115 Above high normal Bedside Gluco se [facility]) ID Date Data Source [id number] 06/27/2021 09:49:00 AM EDT [facility]) Name Value Range Interpretation Code Description Data Anais rce(s) Supporting Document(s) blood urea nitrogen 19 mg/dL 7-18 Above high normal Blood Ure a Nitrogen JOSE ([facility]) glucose, fasting 161 mg/dL 70-100 Above high normal Glucose, Fas ting JOSE ([facility]) creatinine for GFR 1.05 mg/dL 0.70-1.30 Creatinine for GF R JOSE ([facility]) glomerular filtration rate > 60.0 >49 Glomerula r Filtration Rate JOSE ([facility]) chloride level 106 mEq/L 98-107 Chloride Level [place] ([facility]) potassium serum 4.4 mEq/L 3.5-5.1 Potassium Serum ATHE NA ([facility]) sodium level 137 mEq/L 136-145 Sodium Level JOSE ([facility]) anion gap 6 mEq/L 8-16 Below low normal Anion Gap JOSE ( [facility]) carbon dioxide level 25 mEq/L 21-32 Carbon Dioxide Level JOSE ([facility]) calcium level 9.4 mg/dL 8.8-10.2 Calcium Level [place] ( [facility]) ID Date Data Source [id number] 06/27/2021 09:49:00 AM EDT [place] ([facility]) Name Value Range Interpretation Code Description Data Anais rce(s) Supporting Document(s) white blood count 7.3 10 4.0-10.0 White Blood Count JOSE ([facility]) red blood count 4.57 10 4.30-6.10 Red Blood Count ATHE ([facility]) hemoglobin 12.6 g/dL 13.5-17.5 Below low normal Hemoglobin JOSE ( [facility]) mean corpuscular volume 85.3 fL 80.0-96.0 Mean Corpusc ular Volume JOSE ([facility]) hematocrit 39.0 % 42.0-52.0 Below low normal Hematocrit JOSE ( [facility]) mean corpuscular hemoglobin 27.6 pg 27.0-33.0 Mean Cor puscular Hemoglobin JOSE ([facility]) mean corpuscular HGB conc 32.3 g/dL 32.0-36.5 Mean Corpu scular HGB Conc JOSE ([facility]) red cell distribution width 13.5 % 11.5-14.5 Red Cell Distribution Width JOSE ([facility]) neutrophils % 50.2 % 36.0-66.0 Neutrophils % JOSE ( [facility]) platelet count, automated 225 10 150-450 Platelet C ount, Automated JO[place] ([facility]) lymph % 38.1 % 24.0-44.0 Lymph % JO[facility] ([facility]) eos % 4.2 % 0.0-3.0 Above high normal Eos % JOES ([facility]) mono % 6.7 % 2.0-8.0 [place] % [facility] ([facility] [facility]) baso % 0.5 % 0.0-1.0 Baso % JOSE ([facility]) immature granulocyte % 0.3 % 0-3.0 Immature Gran ulocyte % JOSE ([facility]) neutrophils # 3.7 10 1.5-8.5 Neutrophils # JOSE ( [facility]) nucleated red blood cell % 0.0 % 0-0 Nucleated Red Blood Cell % JOSE ([facility]) lymph # 2.8 10 1.5-5.0 Lymph # JOSE ([facility]) mono # 0.5 10 0.0-0.8 [place] # JOSE ([facility]) baso # 0.0 10 0.0-0.2 Baso # JOSE ([facility]) eos # 0.3 10 0.0-0.5 Eos # JOSE ([facility]) ID Date Data Source [id number] 06/27/2021 09:49:00 AM EDT [place] ([facility]) Name Value Range Interpretation Code Description Data Anais rce(s) Supporting Document(s) glucose, fasting 161 mg/dL 70-100 Above high normal Glucose, Fas ting JOSE ([facility]) blood urea nitrogen 19 mg/dL 7-18 Above high normal Blood Ure a Nitrogen JOSE ([facility]) creatinine for GFR 1.05 mg/dL 0.70-1.30 Creatinine for GF R JOSE ([facility]) glomerular filtration rate > 60.0 >49 Glomerula r Filtration Rate JOSE ([facility]) sodium level 137 mEq/L 136-145 Sodium Level JOSE ([facility]) potassium serum 4.4 mEq/L 3.5-5.1 Potassium Serum ATHE ([facility]) carbon dioxide level 25 mEq/L 21-32 Carbon Dioxide Level JOSE ([facility]) anion gap 6 mEq/L 8-16 Below low normal Anion Gap JOSE ( [facility]) chloride level 106 mEq/L 98-107 Chloride Level JOSE ([facility]) calcium level 9.4 mg/dL 8.8-10.2 Calcium Level JOSE ( [facility]) ID Date Data Source [id number] 06/27/2021 09:49:00 AM EDT [place] ([facility]) Name Value Range Interpretation Code Description Data Anais rce(s) Supporting Document(s) red blood count 4.57 10 4.30-6.10 Red Blood Count AT[facility] ([facility]) white blood count 7.3 10 4.0-10.0 White Blood Count JOSE ([facility]) hematocrit 39.0 % 42.0-52.0 Below low normal Hematocrit JOSE ( [facility]) hemoglobin 12.6 g/dL 13.5-17.5 Below low normal Hemoglobin JOSE ( [facility]) mean corpuscular hemoglobin 27.6 pg 27.0-33.0 Mean Cor puscular Hemoglobin JOSE ([facility]) mean corpuscular HGB conc 32.3 g/dL 32.0-36.5 Mean Corpu scular HGB Conc JOSE ([facility]) mean corpuscular volume 85.3 fL 80.0-96.0 Mean Corpusc ular Volume [place] ([facility]) platelet count, automated 225 10 150-450 Platelet C ount, Automated [place] ([facility]) red cell distribution width 13.5 % 11.5-14.5 Red Cell Distribution Width JOSE ([facility]) lymph % 38.1 % 24.0-44.0 Lymph % [place] ([facility]) neutrophils % 50.2 % 36.0-66.0 Neutrophils % [place] ( [facility]) mono % 6.7 % 2.0-8.0 [place] % [place] ([facility]) eos % 4.2 % 0.0-3.0 Above high normal Eos % [place] ([facility]) baso % 0.5 % 0.0-1.0 Baso % [place] ([facility]) immature granulocyte % 0.3 % 0-3.0 Immature Gran ulocyte % [place] ([facility]) nucleated red blood cell % 0.0 % 0-0 Nucleated Red Blood Cell % [place] ([facility]) neutrophils # 3.7 10 1.5-8.5 Neutrophils # [place] ( [facility]) lymph # 2.8 10 1.5-5.0 Lymph # [place] ([facility]) eos # 0.3 10 0.0-0.5 Eos # [place] ([facility]) mono # 0.5 10 0.0-0.8 [place] # [place] ([facility]) baso # 0.0 10 0.0-0.2 Baso # [place] ([facility]) ID Date Data Source [id number] 06/27/2021 09:49:00 AM EDT [place] ([facility]) Name Value Range Interpretation Code Description Data Anais rce(s) Supporting Document(s) creatinine for GFR 1.05 mg/dL 0.70-1.30 Creatinine for GF R [place] ([facility]) glucose, fasting 161 mg/dL 70-100 Above high normal Glucose, Fas ting JOSE ([facility]) blood urea nitrogen 19 mg/dL 7-18 Above high normal Blood Ure a Nitrogen JOSE ([facility]) glomerular filtration rate > 60.0 >49 Glomerula r Filtration Rate JOSE ([facility]) potassium serum 4.4 mEq/L 3.5-5.1 Potassium Serum ATHE NA ([facility]) sodium level 137 mEq/L 136-145 Sodium Level [facility] ([facility]) anion gap 6 mEq/L 8-16 Below low normal Anion Gap JOSE ( [facility]) carbon dioxide level 25 mEq/L 21-32 Carbon Dioxide Level JO[place] ([facility]) chloride level 106 mEq/L 98-107 Chloride Level JO[facility] ([facility]) calcium level 9.4 mg/dL 8.8-10.2 Calcium Level [place] ( [facility]) ID Date Data Source [id number] 06/27/2021 09:49:00 AM EDT [place] ([facility]) Name Value Range Interpretation Code Description Data Anais rce(s) Supporting Document(s) hemoglobin 12.6 g/dL 13.5-17.5 Below low normal Hemoglobin JOSE ( [facility]) red blood count 4.57 10 4.30-6.10 Red Blood Count AT[facility] ([facility]) white blood count 7.3 10 4.0-10.0 White Blood Count JO[facility] ([facility]) mean corpuscular volume 85.3 fL 80.0-96.0 Mean Corpusc ular Volume JOSE ([facility]) hematocrit 39.0 % 42.0-52.0 Below low normal Hematocrit JO[facility] ( [facility]) mean corpuscular hemoglobin 27.6 pg 27.0-33.0 Mean Cor puscular Hemoglobin JO[facility] ([facility]) red cell distribution width 13.5 % 11.5-14.5 Red Cell Distribution Width JO[place] ([facility]) mean corpuscular HGB conc 32.3 g/dL 32.0-36.5 Mean Corpu scular HGB Conc JOSE ([facility]) platelet count, automated 225 10 150-450 Platelet C ount, Automated [place] ([facility]) neutrophils % 50.2 % 36.0-66.0 Neutrophils % JO[place] ( [facility]) mono % 6.7 % 2.0-8.0 [place] % JOSE ([facility]) lymph % 38.1 % 24.0-44.0 Lymph % [place] ([facility]) immature granulocyte % 0.3 % 0-3.0 Immature Gran ulocyte % JOSE ([facility]) baso % 0.5 % 0.0-1.0 Baso % [place] ([facility]) eos % 4.2 % 0.0-3.0 Above high normal Eos % [place] ([facility]) neutrophils # 3.7 10 1.5-8.5 Neutrophils # [place] ( [facility]) nucleated red blood cell % 0.0 % 0-0 Nucleated Red Blood Cell % JOSE ([facility]) lymph # 2.8 10 1.5-5.0 Lymph # JOSE ([facility]) mono # 0.5 10 0.0-0.8 [place] # [place] ([facility]) eos # 0.3 10 0.0-0.5 Eos # JOSE ([facility]) baso # 0.0 10 0.0-0.2 [place] # JOSE ([facility]) ID Date Data Source [id number] 06/27/2021 05:52:00 AM EDT [place] ([facility]) Name Value Range Interpretation Code Description Data Anais rce(s) Supporting Document(s) bedside glucose 144 mg/dL 80-115 Above high normal Bedside Gluco se [place] ([facility]) ID Date Data Source [id number] 06/27/2021 05:52:00 AM EDT [facility]) Name Value Range Interpretation Code Description Data Anais rce(s) Supporting Document(s) bedside glucose 144 mg/dL 80-115 Above high normal Bedside Gluco se [place] ([facility]) ID Date Data Source [id number] 06/27/2021 05:52:00 AM EDT [facility]) Name Value Range Interpretation Code Description Data Anais rce(s) Supporting Document(s) bedside glucose 144 mg/dL 80-115 Above high normal Bedside Gluco se [place] ([facility]) ID Date Data Source [id number] 06/26/2021 07:43:00 PM EDT [facility]) Name Value Range Interpretation Code Description Data Anais rce(s) Supporting Document(s) bedside glucose 179 mg/dL 80-115 Above high normal Bedside Gluco se [facility]) ID Date Data Source [id number] 06/26/2021 07:43:00 PM EDT [facility]) Name Value Range Interpretation Code Description Data Anais rce(s) Supporting Document(s) bedside glucose 179 mg/dL 80-115 Above high normal [facility] ID Date Data Source [id number] 06/26/2021 07:43:00 PM EDT [facility]) Name Value Range Interpretation Code Description Data Anais rce(s) Supporting Document(s) bedside glucose 179 mg/dL 80-115 Above high normal Bedside Gluco se [facility]) ID Date Data Source [id number] 06/26/2021 04:35:00 PM EDT [facility]) Name Value Range Interpretation Code Description Data Anais rce(s) Supporting Document(s) bedside glucose 108 mg/dL 80-115 [facility] Data Source [id number] 06/26/2021 04:35:00 PM EDT [place] ([facility]) Name Value Range Interpretation Code Description Data Anais rce(s) Supporting Document(s) bedside glucose 108 mg/dL 80-115 Bedside Glucose ATHJessie [place]ADILL[place] ([facility]) ID Date Data Source [id number] 06/26/2021 04:35:00 PM EDT [place] ([facility]) Name Value Range Interpretation Code Description Data Anais rce(s) Supporting Document(s) bedside glucose 108 mg/dL 80-115 Bedside Glucose ATHJessie [place]ADILL[place] ([facility]) ID Date Data Source [id number] 06/26/2021 11:24:00 AM EDT [facility]) Name Value Range Interpretation Code Description Data Anais rce(s) Supporting Document(s) bedside glucose 138 mg/dL 80-115 Above high normal Bedside Gluco se [place] ([facility]) ID Date Data Source [id number] 06/26/2021 11:24:00 AM EDT [facility]) Name Value Range Interpretation Code Description Data Anais rce(s) Supporting Document(s) bedside glucose 138 mg/dL 80-115 Above high normal Bedside Gluco se [facility]) ID Date Data Source [id number] 06/26/2021 11:24:00 AM EDT [facility]) Name Value Range Interpretation Code Description Data Anais rce(s) Supporting Document(s) bedside glucose 138 mg/dL 80-115 Above high normal Bedside Gluco se [facility]) ID Date Data Source [id number] 06/26/2021 06:38:00 AM EDT [facility]) Name Value Range Interpretation Code Description Data Anais rce(s) Supporting Document(s) bedside glucose 105 mg/dL 80-115 Bedside Glucose ATHJessie [place]ADILLA ([facility]) ID Date Data Source [id number] 06/26/2021 06:38:00 AM EDT [facility]) Name Value Range Interpretation Code Description Data Anais rce(s) Supporting Document(s) bedside glucose 105 mg/dL 80-115 Bedside Glucose ATHJessie [place]ADILL[place] ([facility]) ID Date Data Source [id number] 06/26/2021 06:38:00 AM EDT [facility]) Name Value Range Interpretation Code Description Data Anais rce(s) Supporting Document(s) bedside glucose 105 mg/dL 80-115 Bedside Glucose ATHJessie [place]ADILLA ([facility]) ID Date Data Source [id number] 06/25/2021 07:52:00 PM EDT [facility]) Name Value Range Interpretation Code Description Data Anais rce(s) Supporting Document(s) bedside glucose 145 mg/dL 80-115 Above high normal Bedside Gluco se [facility]) ID Date Data Source [id number] 06/25/2021 07:52:00 PM EDT [facility]) Name Value Range Interpretation Code Description Data Anais rce(s) Supporting Document(s) bedside glucose 145 mg/dL 80-115 Above high normal Bedside Gluco se [place] ([facility]) ID Date Data Source [id number] 06/25/2021 07:52:00 PM EDT [facility]) Name Value Range Interpretation Code Description Data Anasi rce(s) Supporting Document(s) bedside glucose 145 mg/dL 80-115 Above high normal Bedside Gluco se [facility]) ID Date Data Source [id number] 06/25/2021 05:42:00 PM EDT [place] ([facility]) Name Value Range Interpretation Code Description Data Anais rce(s) Supporting Document(s) bedside glucose 98 mg/dL 80-115 Bedside Glucose ATHJessie [place]ADILLA ([facility]) ID Date Data Source [id number] 06/25/2021 05:42:00 PM EDT [place] ([facility]) Name Value Range Interpretation Code Description Data Anais rce(s) Supporting Document(s) bedside glucose 98 mg/dL 80-115 Bedside Glucose ATHJessie [place]ADILLA ([facility]) ID Date Data Source [id number] 06/25/2021 05:42:00 PM EDT [facility]) Name Value Range Interpretation Code Description Data Anais rce(s) Supporting Document(s) bedside glucose 98 mg/dL 80-115 Bedside Glucose ATHJessie [place]ADILL[place] ([facility]) ID Date Data Source [id number] 06/25/2021 11:56:00 AM EDT [facility]) Name Value Range Interpretation Code Description Data Anais rce(s) Supporting Document(s) bedside glucose 123 mg/dL 80-115 Above high normal Bedside Gluco se [facility]) ID Date Data Source [id number] 06/25/2021 11:56:00 AM EDT [facility]) Name Value Range Interpretation Code Description Data Anais rce(s) Supporting Document(s) bedside glucose 123 mg/dL 80-115 Above high normal Bedside Gluco se [facility]) ID Date Data Source [id number] 06/25/2021 11:56:00 AM EDT [facility]) Name Value Range Interpretation Code Description Data Anais rce(s) Supporting Document(s) bedside glucose 123 mg/dL 80-115 Above high normal Bedside Gluco se [place] ([facility]) ID Date Data Source [id number] 06/25/2021 05:34:00 AM EDT [facility]) Name Value Range Interpretation Code Description Data Anais rce(s) Supporting Document(s) glucose, fasting 125 mg/dL 70-100 Above high normal Glucose, Fas ting [place] ([facility]) blood urea nitrogen 24 mg/dL 7-18 Above high normal Blood Ure a Nitrogen [place] ([facility]) creatinine for GFR 0.97 mg/dL 0.70-1.30 Creatinine for GF R [place] ([facility]) sodium level 139 mEq/L 136-145 Sodium Level [place] ([facility]) glomerular filtration rate > 60.0 >49 Glomerula r Filtration Rate [place] ([facility]) potassium serum 4.0 mEq/L 3.5-5.1 [facility] carbon dioxide level 28 mEq/L 21-32 Carbon Dioxide Level [place] ([facility]) anion gap 4 mEq/L 8-16 Below low normal Anion Gap [place] ( [facility]) chloride level 107 mEq/L 98-107 Chloride Level [place] ([facility]) calcium level 8.7 mg/dL 8.8-10.2 Below low normal Calcium Level AT [facility]) ID Date Data Source [id number] 06/25/2021 05:34:00 AM EDT [place] ([facility]) Name Value Range Interpretation Code Description Data Anais rce(s) Supporting Document(s) white blood count 6.2 10 4.0-10.0 White Blood Count [place] ([facility]) hematocrit 36.1 % 42.0-52.0 Below low normal Hematocrit [place] ( [facility]) hemoglobin 11.5 g/dL 13.5-17.5 Below low normal Hemoglobin [place] ( [facility]) red blood count 4.24 10 4.30-6.10 Below low normal Red Blood Coun t [place] ([facility]) mean corpuscular hemoglobin 27.1 pg 27.0-33.0 Mean Cor puscular Hemoglobin [place] ([facility]) mean corpuscular HGB conc 31.9 g/dL 32.0-36.5 Below low fatou l Mean Corpuscular HGB Conc [place] ([facility]) mean corpuscular volume 85.1 fL 80.0-96.0 Mean Corpusc ular Volume [place] ([facility]) red cell distribution width 13.5 % 11.5-14.5 Red Cell Distribution Width [place] ([facility]) neutrophils % 47.4 % 36.0-66.0 Neutrophils % [place] ( [facility]) lymph % 40.2 % 24.0-44.0 Lymph % [place] ([facility]) platelet count, automated 227 10 150-450 Platelet C ount, Automated [place] ([facility]) baso % 0.8 % 0.0-1.0 Baso % [place] ([facility]) mono % 6.6 % 2.0-8.0 [place] % [place] ([facility]) eos % 4.7 % 0.0-3.0 Above high normal Eos % [place] ([facility]) immature granulocyte % 0.3 % 0-3.0 Immature Gran ulocyte % [place] ([facility]) nucleated red blood cell % 0.0 % 0-0 Nucleated Red Blood Cell % [place] ([facility]) neutrophils # 2.9 10 1.5-8.5 Neutrophils # [place] ( [facility]) baso # 0.1 10 0.0-0.2 Baso # [place] ([facility]) eos # 0.3 10 0.0-0.5 Eos # [place] ([facility]) lymph # 2.5 10 1.5-5.0 Lymph # [place] ([facility]) mono # 0.4 10 0.0-0.8 [place] # [place] ([facility]) ID Date Data Source [id number] 06/25/2021 05:34:00 AM EDT [facility]) Name Value Range Interpretation Code Description Data Anais rce(s) Supporting Document(s) blood urea nitrogen 24 mg/dL 7-18 Above high normal Blood Ure a Nitrogen [place] ([facility]) glomerular filtration rate > 60.0 >49 Glomerula r Filtration Rate [place] ([facility]) creatinine for GFR 0.97 mg/dL 0.70-1.30 Creatinine for GF R [place] ([facility]) glucose, fasting 125 mg/dL 70-100 Above high normal Glucose, Fas ting [place] ([facility]) carbon dioxide level 28 mEq/L 21-32 Carbon Dioxide Level [place] ([facility]) sodium level 139 mEq/L 136-145 Sodium Level [place] ([facility]) potassium serum 4.0 mEq/L 3.5-5.1 Potassium Serum [facility] NA ([facility]) chloride level 107 mEq/L 98-107 Chloride Level [place] ([facility]) calcium level 8.7 mg/dL 8.8-10.2 Below low normal Calcium Level AT [facility]) anion gap 4 mEq/L 8-16 Below low normal Anion Gap [place] ( [facility]) ID Date Data Source [id number] 06/25/2021 05:34:00 AM EDT [place] ([facility]) Name Value Range Interpretation Code Description Data Anais rce(s) Supporting Document(s) white blood count 6.2 10 4.0-10.0 White Blood Count [place] ([facility]) hemoglobin 11.5 g/dL 13.5-17.5 Below low normal Hemoglobin [place] ( [facility]) red blood count 4.24 10 4.30-6.10 Below low normal Red Blood Coun t [place] ([facility]) mean corpuscular volume 85.1 fL 80.0-96.0 Mean Corpusc ular Volume [place] ([facility]) hematocrit 36.1 % 42.0-52.0 Below low normal Hematocrit [place] ( [facility]) mean corpuscular HGB conc 31.9 g/dL 32.0-36.5 Below low fatou l Mean Corpuscular HGB Conc [place] ([facility]) mean corpuscular hemoglobin 27.1 pg 27.0-33.0 Mean Cor puscular Hemoglobin [place] ([facility]) platelet count, automated 227 10 150-450 Platelet C ount, Automated [place] ([facility]) red cell distribution width 13.5 % 11.5-14.5 Red Cell Distribution Width [place] ([facility]) lymph % 40.2 % 24.0-44.0 Lymph % [place] ([facility]) mono % 6.6 % 2.0-8.0 [place] % [place] ([facility]) neutrophils % 47.4 % 36.0-66.0 Neutrophils % [place] ( [facility]) eos % 4.7 % 0.0-3.0 Above high normal Eos % [place] ([facility]) baso % 0.8 % 0.0-1.0 Baso % [place] ([facility]) nucleated red blood cell % 0.0 % 0-0 Nucleated Red Blood Cell % [place] ([facility]) immature granulocyte % 0.3 % 0-3.0 Immature Gran ulocyte % [place] ([facility]) mono # 0.4 10 0.0-0.8 [place] # [place] ([facility]) lymph # 2.5 10 1.5-5.0 Lymph # [place] ([facility]) neutrophils # 2.9 10 1.5-8.5 Neutrophils # [place] ( [facility]) eos # 0.3 10 0.0-0.5 Eos # [place] ([facility]) baso # 0.1 10 0.0-0.2 Baso # [place] ([facility]) ID Date Data Source [id number] 06/25/2021 05:34:00 AM EDT [place] ([facility]) Name Value Range Interpretation Code Description Data Anais rce(s) Supporting Document(s) glucose, fasting 125 mg/dL 70-100 Above high normal Glucose, Fas ting [place] ([facility]) blood urea nitrogen 24 mg/dL 7-18 Above high normal Blood Ure a Nitrogen [place] ([facility]) creatinine for GFR 0.97 mg/dL 0.70-1.30 Creatinine for GF R [place] ([facility]) potassium serum 4.0 mEq/L 3.5-5.1 Potassium Serum ATH NA ([facility]) sodium level 139 mEq/L 136-145 Sodium Level [place] ([facility]) glomerular filtration rate > 60.0 >49 Glomerula r Filtration Rate [place] ([facility]) anion gap 4 mEq/L 8-16 Below low normal Anion Gap [place] ( [facility]) chloride level 107 mEq/L 98-107 Chloride Level [place] ([facility]) carbon dioxide level 28 mEq/L 21-32 Carbon Dioxide Level [place] ([facility]) calcium level 8.7 mg/dL 8.8-10.2 Below low normal Calcium Level AT [facility] ([facility]) ID Date Data Source [id number] 06/25/2021 05:34:00 AM EDT [place] ([facility]) Name Value Range Interpretation Code Description Data Anais rce(s) Supporting Document(s) white blood count 6.2 10 4.0-10.0 White Blood Count [place] ([facility]) red blood count 4.24 10 4.30-6.10 Below low normal Red Blood Coun t [place] ([facility]) hematocrit 36.1 % 42.0-52.0 Below low normal Hematocrit [place] ( [facility]) hemoglobin 11.5 g/dL 13.5-17.5 Below low normal Hemoglobin [place] ( [facility]) mean corpuscular hemoglobin 27.1 pg 27.0-33.0 Mean Cor puscular Hemoglobin [place] ([facility]) mean corpuscular volume 85.1 fL 80.0-96.0 Mean Corpusc ular Volume [place] ([facility]) platelet count, automated 227 10 150-450 Platelet C ount, Automated JOSE ([facility]) red cell distribution width 13.5 % 11.5-14.5 Red Cell Distribution Width JOSE ([facility]) mean corpuscular HGB conc 31.9 g/dL 32.0-36.5 Below low fatou l Mean Corpuscular HGB Conc [place] ([facility]) lymph % 40.2 % 24.0-44.0 Lymph % [place] ([facility]) mono % 6.6 % 2.0-8.0 [place] % [place] ([facility]) neutrophils % 47.4 % 36.0-66.0 Neutrophils % [place] ( [facility]) baso % 0.8 % 0.0-1.0 Baso % [place] ([facility]) eos % 4.7 % 0.0-3.0 Above high normal Eos % [place] ([facility]) immature granulocyte % 0.3 % 0-3.0 Immature Gran ulocyte % [place] ([facility]) neutrophils # 2.9 10 1.5-8.5 Neutrophils # [place] ( [facility]) nucleated red blood cell % 0.0 % 0-0 Nucleated Red Blood Cell % [place] ([facility]) eos # 0.3 10 0.0-0.5 Eos # [place] ([facility]) baso # 0.1 10 0.0-0.2 Baso # [place] ([facility]) lymph # 2.5 10 1.5-5.0 Lymph # [place] ([facility]) mono # 0.4 10 0.0-0.8 [place] # [place] ([facility]) ID Date Data Source [id number] 06/25/2021 05:27:00 AM EDT [place] ([facility]) Name Value Range Interpretation Code Description Data Anais rce(s) Supporting Document(s) bedside glucose 135 mg/dL 80-115 Above high normal Bedside Gluco se [place] ([facility]) ID Date Data Source [id number] 06/25/2021 05:27:00 AM EDT [facility]) Name Value Range Interpretation Code Description Data Anais rce(s) Supporting Document(s) bedside glucose 135 mg/dL 80-115 Above high normal Bedside Gluco se [facility]) ID Date Data Source [id number] 06/25/2021 05:27:00 AM EDT [facility]) Name Value Range Interpretation Code Description Data Anais rce(s) Supporting Document(s) bedside glucose 135 mg/dL 80-115 Above high normal Bedside Gluco se [place] ([facility]) ID Date Data Source [id number] 06/24/2021 08:01:00 PM EDT [facility]) Name Value Range Interpretation Code Description Data Anais rce(s) Supporting Document(s) bedside glucose 138 mg/dL 80-115 Above high normal Bedside Gluco se [facility]) ID Date Data Source [id number] 06/24/2021 08:01:00 PM EDT [facility]) Name Value Range Interpretation Code Description Data Anais rce(s) Supporting Document(s) bedside glucose 138 mg/dL 80-115 Above high normal Bedside Gluco se [facility]) ID Date Data Source [id number] 06/24/2021 08:01:00 PM EDT [facility]) Name Value Range Interpretation Code Description Data Anais rce(s) Supporting Document(s) bedside glucose 138 mg/dL 80-115 Above high normal Bedside Gluco se [facility]) ID Date Data Source [id number] 06/24/2021 04:40:00 PM EDT [facility]) Name Value Range Interpretation Code Description Data Anais rce(s) Supporting Document(s) bedside glucose 154 mg/dL 80-115 Above high normal Bedside Gluco se [place] ([facility]) ID Date Data Source [id number] 06/24/2021 04:40:00 PM EDT [facility]) Name Value Range Interpretation Code Description Data Anais rce(s) Supporting Document(s) bedside glucose 154 mg/dL 80-115 Above high normal Bedside Gluco se [facility]) ID Date Data Source [id number] 06/24/2021 04:40:00 PM EDT [facility]) Name Value Range Interpretation Code Description Data Anais rce(s) Supporting Document(s) bedside glucose 154 mg/dL 80-115 Above high normal Bedside Gluco se [facility]) ID Date Data Source [id number] 06/24/2021 11:18:00 AM EDT [facility]) Name Value Range Interpretation Code Description Data Anais rce(s) Supporting Document(s) bedside glucose 119 mg/dL 80-115 Above high normal Bedside Gluco se [facility]) ID Date Data Source [id number] 06/24/2021 11:18:00 AM EDT [facility]) Name Value Range Interpretation Code Description Data Anais rce(s) Supporting Document(s) bedside glucose 119 mg/dL 80-115 Above high normal Bedside Gluco se [facility]) ID Date Data Source [id number] 06/24/2021 11:18:00 AM EDT [facility]) Name Value Range Interpretation Code Description Data Anais rce(s) Supporting Document(s) bedside glucose 119 mg/dL 80-115 Above high normal Bedside Gluco se [facility]) ID Date Data Source [id number] 06/24/2021 05:38:00 AM EDT [facility]) Name Value Range Interpretation Code Description Data Anais rce(s) Supporting Document(s) bedside glucose 128 mg/dL 80-115 Above high normal Bedside Gluco se [facility]) ID Date Data Source [id number] 06/24/2021 05:38:00 AM EDT [facility]) Name Value Range Interpretation Code Description Data Anais rce(s) Supporting Document(s) bedside glucose 128 mg/dL 80-115 Above high normal Bedside Gluco se [facility]) ID Date Data Source [id number] 06/24/2021 05:38:00 AM EDT [facility]) Name Value Range Interpretation Code Description Data Anais rce(s) Supporting Document(s) bedside glucose 128 mg/dL 80-115 Above high normal Bedside Gluco se [facility]) ID Date Data Source [id number] 06/23/2021 08:09:00 PM EDT [facility]) Name Value Range Interpretation Code Description Data Anais rce(s) Supporting Document(s) bedside glucose 191 mg/dL 80-115 Above high normal Bedside Gluco se [facility]) ID Date Data Source [id number] 06/23/2021 08:09:00 PM EDT [facility]) Name Value Range Interpretation Code Description Data Anais rce(s) Supporting Document(s) bedside glucose 191 mg/dL 80-115 Above high normal Bedside Gluco se [facility]) ID Date Data Source [id number] 06/23/2021 08:09:00 PM EDT [facility]) Name Value Range Interpretation Code Description Data Anais rce(s) Supporting Document(s) bedside glucose 191 mg/dL 80-115 Above high normal Bedside Gluco se [place] ([facility]) ID Date Data Source [id number] 06/23/2021 04:34:00 PM EDT [place] ([facility]) Name Value Range Interpretation Code Description Data Anais rce(s) Supporting Document(s) bedside glucose 85 mg/dL 80-115 Bedside Glucose ATHE NA ([facility]) ID Date Data Source [id number] 06/23/2021 04:34:00 PM EDT [place] ([facility]) Name Value Range Interpretation Code Description Data Anais rce(s) Supporting Document(s) bedside glucose 85 mg/dL 80-115 Bedside Glucose ATHJessie PADILLA ([facility]) ID Date Data Source [id number] 06/23/2021 04:34:00 PM EDT [facility]) Name Value Range Interpretation Code Description Data Anais rce(s) Supporting Document(s) bedside glucose 85 mg/dL 80-115 Bedside Glucose ATHJessie PADILLA ([facility]) ID Date Data Source [id number] 06/23/2021 11:40:00 [facility] Name Value Range Interpretation Code Description Data Anais rce(s) Supporting Document(s) bedside glucose 158 mg/dL 80-115 Above high normal Bedside Gluco se JOSE ([facility]) ID Date Data Source [id number] 06/23/2021 11:40:00 AM EDT [facility]) Name Value Range Interpretation Code Description Data Anais rce(s) Supporting Document(s) bedside glucose 158 mg/dL 80-115 Above high normal Bedside Gluco se [place]SE ([facility]) ID Date Data Source [id number] 06/23/2021 11:40:00 AM EDT [facility]) Name Value Range Interpretation Code Description Data Anais rce(s) Supporting Document(s) bedside glucose 158 mg/dL 80-115 Above high normal Bedside Gluco se [place]SE ([facility]) ID Date Data Source [id number] 06/23/2021 05:41:00 AM EDT [facility]) Name Value Range Interpretation Code Description Data Anais rce(s) Supporting Document(s) bedside glucose 110 mg/dL 80-115 Bedside Glucose ATHJessie PADILLA ([facility]) ID Date Data Source [id number] 06/23/2021 05:41:00 AM EDT [facility]) Name Value Range Interpretation Code Description Data Anais rce(s) Supporting Document(s) bedside glucose 110 mg/dL 80-115 Bedside Glucose ATHJessie PADILLA ([facility]) ID Date Data Source [id number] 06/23/2021 05:41:00 AM EDT [facility]) Name Value Range Interpretation Code Description Data Anais rce(s) Supporting Document(s) bedside glucose 110 mg/dL 80-115 Bedside Glucose ATHJessie PADILLA ([facility]) ID Date Data Source [id number] 06/22/2021 07:39:00 PM EDT [facility]) Name Value Range Interpretation Code Description Data Anais rce(s) Supporting Document(s) bedside glucose 149 mg/dL 80-115 Above high normal Bedside Gluco se [place] ([facility]) ID Date Data Source [id number] 06/22/2021 07:39:00 PM EDT [facility]) Name Value Range Interpretation Code Description Data Anais rce(s) Supporting Document(s) bedside glucose 149 mg/dL 80-115 Above high normal Bedside Gluco se [place] ([facility]) ID Date Data Source [id number] 06/22/2021 07:39:00 PM EDT [place] ([facility]) Name Value Range Interpretation Code Description Data Anais rce(s) Supporting Document(s) bedside glucose 149 mg/dL 80-115 Above high normal Bedside Gluco se [place] ([facility]) ID Date Data Source [id number] 06/22/2021 04:48:00 PM EDT [facility]) Name Value Range Interpretation Code Description Data Anais rce(s) Supporting Document(s) bedside glucose 99 mg/dL 80-115 Bedside Glucose ATHE RAND[place] ([facility]) ID Date Data Source [id number] 06/22/2021 04:48:00 PM EDT [facility]) Name Value Range Interpretation Code Description Data Anais rce(s) Supporting Document(s) bedside glucose 99 mg/dL 80-115 Bedside Glucose ATHE [place] ([facility]) ID Date Data Source [id number] 06/22/2021 04:48:00 PM EDT [facility]) Name Value Range Interpretation Code Description Data Anais rce(s) Supporting Document(s) bedside glucose 99 mg/dL 80-115 Bedside Glucose ATHE [place] ([facility]) ID Date Data Source [id number] 06/22/2021 11:54:00 AM EDT [facility]) Name Value Range Interpretation Code Description Data Anais rce(s) Supporting Document(s) bedside glucose 166 mg/dL 80-115 Above high normal Bedside Gluco se [place] ([facility]) ID Date Data Source [id number] 06/22/2021 11:54:00 AM EDT [place] ([facility]) Name Value Range Interpretation Code Description Data Anais rce(s) Supporting Document(s) bedside glucose 166 mg/dL 80-115 Above high normal Bedside Gluco se [place] ([facility]) ID Date Data Source [id number] 06/22/2021 11:54:00 AM EDT [place] ([facility]) Name Value Range Interpretation Code Description Data Anais rce(s) Supporting Document(s) bedside glucose 166 mg/dL 80-115 Above high normal Bedside Gluco se [place] ([facility]) ID Date Data Source [id number] 06/13/2021 05:45:00 PM EDT [facility] Name Value Range Interpretation Code Description Data Anais rce(s) Supporting Document(s) SARS coronavirus 2 RNA [Presence] in Res piratory specimen by LAURA with probe detection NEGATIVE [facility] This lab was ordered by [facility] a nd reported by [facility]. ID Date Data Source [id number] 06/12/2021 11:57:00 PM EDT [facility] Patient: LUCIA MCNAIR Observation Rep ort - [facility].VisitID: [id number] [place] [address] [phone], MRegistration Date/Time: 06/12/2021 19:23 Weight:104.3 kg (S). Height/Length:69 inches (S). BMI:34 PAST HISTORYMedications:BD US Pen Injection.Gabapentin Oral 100 mg, 3x a day, last dose today.Levemir FlexTouch Subcutaneous 100, daily as needed, last dose unknown.metFORMIN HCl Oral 500 mg, 2x a day, last dose today.risperiDONE Oral 2 mg, 2x a day, last dose today. Allergies:No Known Drug Allergy. FAMILY HISTORYNo significant family medical history. INSTRUCTIONSYour Current Medications: Your current home medications have been reviewed. CONTINUE TAKING THE FOLLOWING MEDICATIONS:BD US Pen Injection*. Gabapentin Oral : 100 mg 3x a day, Last: today. Levemir FlexTouch Subcutaneous : 100 daily, Last: unknown, prn. metFORMIN HCl Oral : 500 mg 2x a day, Last: today. risperiDONE Oral : 2 mg 2x a day, Last: today. (Electronically signed by Meir Bhatti DO 06/12/2021 22:32) Name Value Range Interpretation Code Description Data Davies campuse(s) Supporting Document(s) ID Date Data Source [id number] 06/12/2021 10:00:00 PM [facility] [id number] Name Value Range Interpretation Code Description Data [facility] rce(s) Supporting Document(s) COVID-19 NEGATIVE NEGATIVE [facility] Negative results should be treated as pr [...] are for the indentification of SARS-CoV-2 RNA. PleMMAJ-JmX-6 RNA is generally detectable in respiratorysamples during the actue phase of infection. ID Date Data Source [id number] 06/12/2021 09:36:00 PM EDT [facility] Name Value Range Interpretation Code Description Data [facility](s) Supporting Document(s) COVID-19 NEGATIVE [facility] This lab was ordered by [facility] and reported by [facility]. ID Date Data Source [id number] 06/12/2021 09:33:00 PM EDT [facility] Right Foot DATE OF EXAMINATION: 06/12/20 21 20:21 EDT FOOT COMPLETE INDICATION: Pain and swelling, ulceration COMPARISON: None TECHNIQUE: 4 views of the foot were obtained. FINDINGS: There is osseous destruction involving the distal portion of the firstmetatarsal bone as well as the base of proximal phalanx of the first digit.There is also destructive process involving the base of the distal phalanx ofthe great toe. There is a soft tissue ulceration. Atherosclerotic changes arenoted. IMPRESSION: Destructive osteomyelitis involving the first digit, phalanges aswell as the head of the first metatarsal bone. There is overlying soft tissueinflammation and ulceration.. Electronically signed in [id number] by: Nicola Ireland M.D. 06/12/2021 21:28 EDT Name Value Range Interpretation Code Description Data Anais rce(s) Supporting Document(s) ID Date Data Source [id number] 06/19/2021 09:26:00 AM EDT [facility] BLOOD CULTURE #2` Name Value Range Interpretation Code Description Data Anais rce(s) Supporting Document(s) [facility] ID Date Data Source [id number] 06/12/2021 09:30:00 PM EDT [facility] TSYSORDER [id number] Name Value Range Interpretation Code Description Data Anais rce(s) Supporting Document(s) ERYTHROCYTE SEDIMENTATION RATE 67 mm/hr 0-[address] [facility] ID Date Data Source [id number] 06/12/2021 08:36:00 PM EDT [facility] TSYSORDER [id number] Name Value Range Interpretation Code Description Data Anais rce(s) Supporting Document(s) C REACTIVE PROTEIN 50.0 mg/L 0.0-3.0 H [facility] ID Date Data Source [id number] 06/12/2021 08:27:00 PM EDT [facility] TSYSORDER [id number] Name Value Range Interpretation Code Description Data Anais rce(s) Supporting Document(s) GLUCOSE 263 mg/dL 74-[address] [facility] BLOOD UREA NITROGEN 23 mg/dL 7-18 H [facility] ital CREATININE 1.18 mg/dL 0.7-1.[address] [facility] SODIUM 134 mmol/L 136-[address] [facility] POTASSIUM 4.0 mmol/L 3.5-5.[address] [facility] CHLORIDE 99 mmol/L 98-[address] [facility] CO2 27 mmol/L 21-[address] [facility] CALCIUM 9.0 mg/dL 8.5-10.[address] [facility] ANION GAP 8.0 mmol/L 5-[address] [facility] GLOMERULAR FILTRATION RATE 63 mL/min [facility] GFR IS CALCULATED IN mL/min/1.73m2 FATOU L FUNCTION: >90MILDLY DECREASED: 60-89MILDY TO MODERATELY DECREASED: 45-59 MODERATELY TO SEVERELY DECREASED: 30-44SEVERELY DECREASED: 15-29RENAL FAILURE: <15 AST 8 U/L 15-[address] [facility] ALT 18 U/L 12-[address] [facility] ALKALINE PHOSPHATASE 107 U/L 46-116 [facility] TOTAL BILIRUBIN 0.2 mg/dL 0.2-1.[address] [facility] TOTAL PROTEIN 8.5 g/dl 6.4-8.[address] [facility] ALBUMIN 2.9 gm/dL 3.4-5.[address] [facility] ID Date Data Source [id number] 06/12/2021 08:27:00 PM [facility] TSYSORDER [id number] Name Value Range Interpretation Code Description Data Anais rce(s) Supporting Document(s) LACTIC ACID 1.3 mmol/L 0.4-2.[address] [facility] ID Date Data Source [id number] 06/12/2021 08:26:00 PM [facility] TSYSORDER [id number] Name Value Range Interpretation Code Description Data Anais rce(s) Supporting Document(s) WHITE BLOOD COUNT 15.3 K/mm3 4.0-10.0 H [facility] dwight RED BLOOD COUNT 4.08 M/mm3 4.50-6.00 L [facility] HEMOGLOBIN 11.3 gm/dL 14.0-18.0 [facility] HEMATOCRIT 33.1 % 42.0-54.[address] [facility] MEAN CELL VOLUME 81.1 fl 80-96 [facility] MEAN CORPUSCULAR HEMOGLOBIN 27.7 pg 27.0-31.0 [facility] MEAN CORPUSCULAR HGB CONC 34.1 g/dl 32.0-36.0 [facility] RED CELL DISTRIBUTION WIDTH 13.2 % 10.0-14.5 [facility] PLATELET COUNT 350 K/mm3 172-[address] [facility] MEAN PLATELET VOLUME 8.8 fl 9.0-13.[address] [facility] pital GRAN % 79.1 % 50-80.[address] [facility] IG% 0.3 % 0.0-0.[address] [facility] LYMPH % 14.6 % 25.0-50.0 L [facility] MONO % 5.0 % 2.0-10.0 [facility] EOS % 0.7 % 0-5.0 [facility] BASO % 0.3 % 0.0-2.0 [facility] GRAN # 12.1 K/mm3 2.0-8.[address] [facility] IG# 0.1 K/mm3 0.0-0.[address] [facility] LYMPH # 2.2 K/mm3 1.0-5.[address] [facility] MONO # 0.8 K/mm3 0.10-1.[address] [facility] EOS # 0.1 K/mm3 0.0-0.[address] [facility] BASO # 0.1 K/mm3 0.0-0.[address] [facility] ID Date Data Source [id number] 06/19/2021 09:25:00 AM EDT [facility] BLOOD CULTURE #1 Name Value Range Interpretation Code Description Data Anais rce(s) Supporting Document(s) [facility] ID Date Data Source [id number] 05/17/2021 10:36:00 AM EDT [facility] Patient: LUCIA MCNAIR Observation Rep ort - [facility].VisitID: [id number] [place] [address] [phone], MRegistration Date/Time: 05/16/2021 20:08 Weight:99.7 kg (S). Height/Length:69 inches (S). BMI:32.5 PAST HISTORYProblems:Hearing Loss.Diabetes Mellitus. Additional Surgeries:Ear surgery.Foot surgery. Medications:BD US Pen Injection.Docusate Sodium Oral (Capsule 100 mg), as needed.Levemir FlexTouch Subcutaneous 100, daily as needed.risperiDONE Oral 2 mg, 2x a day, last dose today.metFORMIN HCl Oral 500 mg, 2x a day, last dose today.Gabapentin Oral 100 mg, 3x a day, last dose today.Cefdinir Oral 300 mg, 2x a day, last dose today.Cephalexin Oral 500 mg, 2x a day, last dose today. Allergies:No Known Drug Allergy. FAMILY HISTORYNegative - denies family medical history. INSTRUCTIONSYour Current Medications: Your current home medications have been reviewed. CONTINUE TAKING THE FOLLOWING MEDICATION S:BD US Pen Injection*. Cefdinir Oral : 300 mg 2x a day, Last: today. Cephalexin Oral : 500 mg 2x a day, Last: today. Docusate Sodium Oral : Capsule 100 mg, prn. Gabapentin Oral : 100 mg 3x a day, Last: today. Levemir FlexTouch Subcutaneous : 100 daily, prn. metFORMIN HCl Oral : 500 mg 2x a day, Last: today. risperiDONE Oral : 2 mg 2x a day, Last: today. (Electronically signed by Magnolia Powell 05/17/2021 00:48) Name Value Range Interpretation Code Description Data Anais rce(s) Supporting Document(s) ID Date Data Source [id number] 04/17/2021 09:01:00 PM EDT [facility] Name Value Range Interpretation Code Description Data Anais rce(s) Supporting Document(s) SARS coronavirus 2 RNA [Presence] in Res piratory specimen by LAURA with probe detection NEGATIVE [facility] This lab was ordered by [facility] a nd reported by [facility]. ID Date Data Source [id number] 03/02/2021 02:03:00 PM EDT [facility] Name Value Range Interpretation Code Description Data Anais rce(s) Supporting Document(s) SARS coronavirus 2 RNA [Presence] in Res piratory specimen by LAURA with probe detection NEGATIVE [facility] This lab was ordered by [facility] a nd reported by [facility]. ID Date Data Source [id number] 02/24/2021 08:46:00 PM EDT [facility] Name Value Range Interpretation Code Description Data Anais rce(s) Supporting Document(s) SARS coronavirus 2 RNA [Presence] in Res piratory specimen by LAURA with probe detection NEGATIVE [facility] This lab was ordered by [facility] a nd reported by [facility]. ID Date Data Source [id number] 02/20/2021 11:58:00 PM EDT [facility] Name Value Range Interpretation Code Description Data Anais rce(s) Supporting Document(s) SARS coronavirus 2 RNA [Presence] in Res piratory specimen by LAURA with probe detection NEGATIVE [facility] This lab was ordered by [facility] a nd reported by [facility]. ID Date Data Source [id number] 02/17/2021 01:32:00 PM EDT [facility] Name Value Range Interpretation Code Description Data Anais rce(s) Supporting Document(s) SARS coronavirus 2 RNA [Presence] in Res piratory specimen by LAURA with probe detection NEGATIVE [facility] This lab was ordered by [facility] a nd reported by [facility]. ID Date Data Source [id number] 11/14/2020 12:55:00 AM EST [facility] Name Value Range Interpretation Code Description Data Anais rce(s) Supporting Document(s) SARS-CoV-2 (COVID 19) NEGATIVE - SARS-CoV-2 (COVID19) [place] This lab was ordered by [facility] a nd reported by [facility]. Procedure Social History Code Duration Value Status Description Data Source(s ) Smoking 07/27/2021 12:00:00 AM EDT Unknown if ever smoked comp leted Unknown if ever smoked [facility] ([facility]) Smoking 05/03/2021 12:00:00 AM EDT Unknown if ever smoked comp leted Unknown if ever smoked [facility] ([facility]) Smoking 04/05/2021 12:00:00 AM EDT Unknown if ever smoked comp leted Unknown if ever smoked [facility] ([facility]) Smoking 03/27/2021 12:00:00 AM EDT Unknown if ever smoked comp leted Unknown if ever smoked [facility] ([facility]) Smoking 03/22/2021 12:00:00 AM EDT Current Smoker completed Curre nt Smoker eCW1 ([facility]) Smoking 03/22/2021 12:00:00 AM EDT Current Smoker completed Curre nt Smoker eCW1 ([facility]) Smoking 03/22/2021 12:00:00 AM EDT Current Smoker completed Curre nt Smoker eCW1 ([facility]) Smoking 03/07/2021 12:00:00 AM EDT Unknown if ever smoked comp leted Unknown if ever smoked [facility] ([facility]) Smoking 01/17/2021 12:00:00 AM EDT Unknown if ever smoked comp leted Unknown if ever smoked [facility] ([facility]) Vital Signs ID Date Data Source UNK Name Value Range Interpretation Code Description Data Source(s) Diastolic blood pressure 64 mm[Hg] 64 mm[Hg] JOSE ([facility]) Systolic blood pressure 117 mm[Hg] 117 mm[Hg] A [facility] ([facility]) Diastolic blood pressure 71 mm[Hg] 71 mm[Hg] JOSE ([facility]) Systolic blood pressure 109 mm[Hg] 109 mm[Hg] A [facility] ([facility]) Diastolic blood pressure 71 mm[Hg] 71 mm[Hg] JOSE ([facility]) Systolic blood pressure 109 mm[Hg] 109 mm[Hg] A [facility] ([facility]) Diastolic blood pressure 71 mm[Hg] 71 mm[Hg] JOSE ([facility]) Systolic blood pressure 109 mm[Hg] 109 mm[Hg] A [facility] ([facility]) Systolic blood pressure 126 mm[Hg] 126 mm[Hg] A [facility] ([facility]) Diastolic blood pressure 80 mm[Hg] 80 mm[Hg] JOSE ([facility]) Systolic blood pressure 126 mm[Hg] 126 mm[Hg] A [facility] ([facility]) Body weight 3620 [oz_av] 3620 [oz_av] JOSE ([facility]) Diastolic blood pressure 80 mm[Hg] 80 mm[Hg] JOSE ([facility]) Body weight 3620 [oz_av] 3620 [oz_av] JOSE ([facility]) Diastolic blood pressure 80 mm[Hg] 80 mm[Hg] JOSE ([facility]) Systolic blood pressure 126 mm[Hg] 126 mm[Hg] A THENA ([facility]) Body weight 3620 [oz_av] 3620 [oz_av] JOSE ([facility]) Diastolic blood pressure 80 mm[Hg] 80 mm[Hg] JOSE ([facility]) Systolic blood pressure 126 mm[Hg] 126 mm[Hg] A THENA ([facility]) Body weight 3620 [oz_av] 3620 [oz_av] JOSE ([facility]) Body weight 222.6 [lb_av] 222.6 [lb_av] eCW1 ([facility]) Body height [in_i] eCW1 ([facility]) Body mass index (BMI) [Ratio] 30.19 kg/m2 30.19 kg/m2 eCW1 ([facility]) Systolic blood pressure 122 mm[Hg] 122 mm[Hg] e CW1 ([facility]) Diastolic blood pressure 72 mm[Hg] 72 mm[Hg] eCW1 ([facility]) Body height 0.00 in Normal (applies to non-numeric resu lts) 0.00 in [facility] ([facility]) Body weight Measured 0.00 lbs Normal (applies to n on-numeric results) 0.00 lbs [facility] ([facility]) Body mass index (BMI) [Ratio] 0.00 kg/m2 No rmal (applies to non-numeric results) 0.00 kg/m2 [facility] ([facility]) Systolic blood pressure 0 mm[Hg] Normal (applies t o non-numeric results) 0 mm[Hg] [facility] ([facility]) Diastolic blood pressure 0 mm[Hg] Normal (applies to non-numeric results) 0 mm[Hg] [facility] ([facility]) Patient Treatment Plan of Care Planned Activity Planned Date Details Description Data Source (s) Docusate Sodium 100 MG 06/08/2021 01:00:00 AM EDT [facility]) Cefdinir 300 MG 06/08/2021 01:00:00 AM EDT [facility]) RisperiDONE 2 MG 06/08/2021 01:00:00 AM EDT [facility]) Cephalexin 500 MG 06/08/2021 01:00:00 AM EDT [facility]) Gabapentin 100 MG 06/08/2021 01:00:00 AM EDT [facility]) Levemir FlexTouch 100 UNIT/ML 06/08/2021 01:00:00 AM EDT [facility]) MetFORMIN HCl 500 MG 06/08/2021 01:00:00 AM EDT [facility]) Ketoconazole 20 MG/ML Topical Cream 03/22/2021 12:00:00 AM EDT eCW1 ([facility]) Ketoconazole 20 MG/ML Topical Cream 03/22/2021 12:00:00 AM EDT eCW1 ([facility]) Ketoconazole 20 MG/ML Topical Cream 03/22/2021 12:00:00 AM EDT eCW1 ([facility]) aripiprazole 10 MG Oral Tablet JOSE ([facility])
[2021-08-04 00:17] LABS: HEMATOCRIT 42.2 % (42.0-52.0); HEMOGLOBIN 14.1 g/dl (13.5-17.5); MEAN CORPUSCULAR HEMOGLOBIN 27.2 pg (27.0-33.0); MEAN CORPUSCULAR HGB CONC 33.4 g/dl (32.0-36.5); MEAN CORPUSCULAR VOLUME 81.5 fl (80.0-96.0); PLATELET COUNT, AUTOMATED 223 10^3/uL (150-450); RED BLOOD COUNT 5.18 10^6/uL (4.30-6.10); WHITE BLOOD COUNT 9.2 10^3/uL (4.0-10.0)
[2021-08-04 00:21] LABS: AMPHETAMINES LEVEL URINE NEGATIVE (NEGATIVE); BARBITURATES URINE NEGATIVE (NEGATIVE); BENZODIAZEPINES URINE NEGATIVE (NEGATIVE); CANNABINOIDS URINE NEGATIVE (NEGATIVE); COCAINE METABOLITE URINE NEGATIVE (NEGATIVE); METHADONE URINE NEGATIVE (NEGATIVE); OPIATES URINE NEGATIVE (NEGATIVE); PHENCYCLIDINE URINE NEGATIVE (NEGATIVE)
[2021-08-04 00:34] LABS: ACETAMINOPHEN LEVEL < 2.0 UG/ML (10.0-30.0); ALBUMIN 4.9 GM/DL (3.2-5.2); ALT/SGPT 23 U/L (12-78); BILIRUBIN,DIRECT 0.2 MG/DL (0.0-0.2); BILIRUBIN,TOTAL 0.5 MG/DL (0.2-1.0); BLOOD UREA NITROGEN 14 MG/DL (7-18); CALCIUM LEVEL 10.6 MG/DL (8.8-10.2); CARBON DIOXIDE LEVEL 29 MEQ/L (21-32); CHLORIDE LEVEL 99 MEQ/L (98-107); CREATININE FOR GFR 1.04 MG/DL (0.70-1.30); ETHYL ALCOHOL (ETHANOL) < 0.003 % (0.000-0.010); GLOMERULAR FILTRATION RATE > 60.0 (>49); GLUCOSE, FASTING 90 MG/DL (70-100); POTASSIUM SERUM 4.3 MEQ/L (3.5-5.1); SALICYLATE LEVEL 2.5 MG/DL (5.0-30.0); SODIUM LEVEL 135 MEQ/L (136-145); THYROID STIMULATING HORMONE 0.261 uIU/ML (0.358-3.740); TOTAL PROTEIN 8.8 GM/DL (6.4-8.2)
== END 2021-08-04 14:53 | disposition home or self-care (01) ==
LOC: M ED 22:26
DX: F43.0 Acute stress reaction (principal); E11.9 Type 2 diabetes mellitus without complications; Z79.82 Long term (current) use of aspirin; Z79.899 Other long term (current) drug therapy

== ENCOUNTER 2021-08-22 11:59 | Emergency (ER) | payer MEDICARE, MEDICAID ==
[~2021-08-22] VITALS: Ht 175.3 cm; Wt 63.6 kg
[~2021-08-22 11:59] MED LIST changes: -CEFD1CAP8 PO; +CEFD300C41 PO; -FLUC100T PO; +FLUC100T3 PO
[2021-08-22] MEDS ORDERED: RISP-9 (12:15)
[2021-08-22] MEDS ORDERED: LEVE1INJ5 (12:15)
[2021-08-22 14:11] LABS: HEMATOCRIT 40.5 % (42.0-52.0); HEMOGLOBIN 13.1 g/dl (13.5-17.5); MEAN CORPUSCULAR HEMOGLOBIN 27.2 pg (27.0-33.0); MEAN CORPUSCULAR HGB CONC 32.3 g/dl (32.0-36.5); MEAN CORPUSCULAR VOLUME 84.2 fl (80.0-96.0); PLATELET COUNT, AUTOMATED 201 10^3/uL (150-450); RED BLOOD COUNT 4.81 10^6/uL (4.30-6.10); WHITE BLOOD COUNT 7.9 10^3/uL (4.0-10.0)
[2021-08-22 14:21] LABS: AMPHETAMINES LEVEL URINE NEGATIVE (NEGATIVE); BARBITURATES URINE NEGATIVE (NEGATIVE); BENZODIAZEPINES URINE NEGATIVE (NEGATIVE); CANNABINOIDS URINE NEGATIVE (NEGATIVE); COCAINE METABOLITE URINE NEGATIVE (NEGATIVE); METHADONE URINE NEGATIVE (NEGATIVE); OPIATES URINE NEGATIVE (NEGATIVE); PHENCYCLIDINE URINE NEGATIVE (NEGATIVE)
[2021-08-22 14:58] LABS: ACETAMINOPHEN LEVEL < 2.0 UG/ML (10.0-30.0); ALBUMIN 4.2 GM/DL (3.2-5.2); ALT/SGPT 20 U/L (12-78); BILIRUBIN,DIRECT 0.2 MG/DL (0.0-0.2); BILIRUBIN,TOTAL 0.3 MG/DL (0.2-1.0); BLOOD UREA NITROGEN 17 MG/DL (7-18); CALCIUM LEVEL 9.3 MG/DL (8.8-10.2); CARBON DIOXIDE LEVEL 30 MEQ/L (21-32); CHLORIDE LEVEL 99 MEQ/L (98-107); CREATININE FOR GFR 0.91 MG/DL (0.70-1.30); ETHYL ALCOHOL (ETHANOL) < 0.003 % (0.000-0.010); GLOMERULAR FILTRATION RATE > 60.0 (>49); GLUCOSE, FASTING 94 MG/DL (70-100); POTASSIUM SERUM 4.1 MEQ/L (3.5-5.1); RSV AMPLIFICATION NEGATIVE (NEGATIVE); SALICYLATE LEVEL 2.7 MG/DL (5.0-30.0); SODIUM LEVEL 138 MEQ/L (136-145); THYROID STIMULATING HORMONE 0.249 uIU/ML (0.358-3.740); TOTAL PROTEIN 7.7 GM/DL (6.4-8.2)
[2021-08-22 20:28] VITALS: BP 118/73
== END 2021-08-22 20:43 | disposition home or self-care (01) ==
LOC: M ED 11:59
DX: F60.0 Paranoid personality disorder (principal); R45.851 Suicidal ideations; F32.89 Other specified depressive episodes; F41.9 Anxiety disorder, unspecified

== ENCOUNTER → 2021-09-11 | Outpatient (REF) | payer MEDICARE, MEDICAID ==
[~2021-09-11] MED LIST changes: +CEFD1CAP8 PO; -CEFD300C41 PO; +FLUC100T PO; -FLUC100T3 PO; +LEVE1INJ5; +RISP-9
== END ==
LOC: M LAB REF 12:43
PROVIDERS: ATTEND Podiatrist Foot & Ankle Surgery
DX: M86.171 Other acute osteomyelitis, right ankle and foot (principal); I96 Gangrene, not elsewhere classified

== ENCOUNTER → 2021-11-29 | Outpatient (REF) | payer MEDICARE, MEDICAID ==
[~2021-11-29] MED LIST changes: -CEFD1CAP8 PO; +CEFD300C41 PO; -FLUC100T PO; +FLUC100T3 PO
== END ==
LOC: M LAB REF 16:24
PROVIDERS: ATTEND Podiatrist Foot & Ankle Surgery
DX: L03.031 Cellulitis of right toe (principal)

== ENCOUNTER → 2022-05-13 | Outpatient (CLI) | payer MEDICARE, MEDICAID | LOC: M EKG 09:49 | PROVIDERS: ATTEND Podiatrist Foot & Ankle Surgery | DX: Z01.818 Encounter for other preprocedural examination (principal) ==

== ENCOUNTER → 2022-05-15 | Outpatient (REF) | payer MEDICARE, MEDICAID | LOC: M LAB REF 13:08 | PROVIDERS: ATTEND Podiatrist Foot & Ankle Surgery | DX: M86.272 Subacute osteomyelitis, left ankle and foot (principal) ==

== ENCOUNTER → 2022-08-01 | Outpatient (REF) | payer MEDICARE, MEDICAID ==
[2022-08-01 17:56] LABS: ALBUMIN 4.2 GM/DL (3.2-5.2); ALT/SGPT 26 U/L (12-78); BILIRUBIN,TOTAL 0.4 MG/DL (0.2-1.0); BLOOD UREA NITROGEN 19 MG/DL (7-18); CALCIUM LEVEL 9.7 MG/DL (8.8-10.2); CARBON DIOXIDE LEVEL 30 MEQ/L (21-32); CHLORIDE LEVEL 97 MEQ/L (98-107); CHOLESTEROL LEVEL 124 MG/DL (<200); CREATININE FOR GFR 1.06 MG/DL (0.70-1.30); GLOMERULAR FILTRATION RATE > 60.0 (>49); GLUCOSE, FASTING 286 MG/DL (70-100); HDL CHOLESTEROL 50 MG/DL (>40); LDL CHOLESTEROL 42 MG/DL (<100); NON-HDL-C 74 MG/DL; POTASSIUM SERUM 4.4 MEQ/L (3.5-5.1); SODIUM LEVEL 132 MEQ/L (136-145); THYROID STIMULATING HORMONE 0.285 uIU/ML (0.358-3.740); TOTAL PROTEIN 8.1 GM/DL (6.4-8.2); TRIGLYCERIDES LEVEL 159 MG/DL (<150)
[2022-08-01 19:22] LABS: HEMOGLOBIN A1c 10.7 %
== END ==
LOC: M LAB REF 16:39
PROVIDERS: ATTEND Family Medicine Addiction Medicine
DX: E11.69 Type 2 diabetes mellitus with other specified complication (principal)

== ENCOUNTER → 2022-10-25 | Outpatient (REF) | payer MEDICARE, MEDICAID ==
[2022-10-25 14:35] LABS: ALBUMIN 4.1 G/DL (3.2-5.2); ALKALINE PHOSPHATASE 113 U/L (46-116); ALT/SGPT 15 U/L (7.0-40); AST/SGOT 17 U/L (<34); BILIRUBIN,TOTAL 0.3 MG/DL (0.3-1.2); BLOOD UREA NITROGEN 23 MG/DL (9-23); CALCIUM LEVEL 9.4 MG/DL (8.3-10.6); CARBON DIOXIDE LEVEL 31 MMOL/L (20-31); CHLORIDE LEVEL 103 MMOL/L (98-107); CHOLESTEROL LEVEL 94 MG/DL (<200); CHOLESTEROL RISK RATIO 2.42 (<5); GLOMERULAR FILTRATION RATE > 60.0 (>49); GLUCOSE, FASTING 107 MG/DL (74-106); HDL CHOLESTEROL 38.7 MG/DL (>40); LDL CHOLESTEROL 25.7 MG/DL (<100); NON-HDL-C 55 MG/DL; POTASSIUM SERUM 4.5 MMOL/L (3.5-5.1); SODIUM LEVEL 139 MMOL/L (136-145); TOTAL PROTEIN 7.5 G/DL (5.7-8.2); TRIGLYCERIDES LEVEL 148 MG/DL (<150)
[2022-10-25 14:44] LABS: THYROID STIMULATING HORMONE 0.505 uIU/ML (0.55-4.78)
[2022-10-25 16:16] LABS: HEMOGLOBIN A1c 9.2 % (4.0-6.0)
== END ==
LOC: M LAB REF 13:00
PROVIDERS: ATTEND Family Medicine Addiction Medicine
DX: E11.69 Type 2 diabetes mellitus with other specified complication (principal)

== ENCOUNTER 2024-06-09 12:52 | Inpatient (IN) | payer MEDICARE, MEDICAID ==
[~2024-06-09] VITALS: Ht 182.9 cm; Wt 110.8 kg
[~2024-06-09 12:52] MED LIST changes: +CEFD1CAP9 PO; -CEFD300C41 PO; +DOXY-323 PO; -DOXY-443 PO; +INSU100I6 INJ; +INSU100I6 SC; -LEVE1INJ5; -LEVE1INJ5 SC; +RISP-106 PO; -RISP-9; -RISP-9 PO; +SENN-111 PO; -SENN18TA PO
[2024-06-09 16:53] LABS: BASO # 0.1 10^3/uL (0.0-0.2); BASO % 0.3 % (0.0-1.0); EOS # 0.1 10^3/uL (0.0-0.5); EOS % 0.7 % (0.0-3.0); HEMATOCRIT 39.2 % (42.0-52.0); HEMOGLOBIN 13.2 g/dl (13.5-17.5); LYMPH # 1.6 10^3/uL (1.5-5.0); LYMPH % 9.2 % (24.0-44.0); MEAN CORPUSCULAR HEMOGLOBIN 29.1 pg (27.0-33.0); MEAN CORPUSCULAR HGB CONC 33.7 g/dl (32.0-36.5); MEAN CORPUSCULAR VOLUME 86.3 fl (80.0-96.0); MONO # 1.3 10^3/uL (0.0-0.8); MONO % 7.5 % (2.0-8.0); NEUTROPHILS # 14.1 10^3/uL (1.5-8.5); NEUTROPHILS % 81.4 % (36.0-66.0); PLATELET COUNT, AUTOMATED 233 10^3/uL (150-450); RED BLOOD COUNT 4.54 10^6/uL (4.30-6.10); WHITE BLOOD COUNT 17.4 10^3/uL (4.0-10.0)
[2024-06-09 17:12] LABS: ERYTHROCYTE SEDIMENTATION RATE 68 mm/hr (0-20)
[2024-06-09] MEDS ORDERED: cefTRIAXone SOD 1 GM in D5W MINI-BAG PLUS 50 ML IV ONE (17:15)
[2024-06-09 18:17] LABS: PROCALCITONIN 0.15 ng/ml
[2024-06-09] MEDS: CLINDAMYCIN 900 MG in IV 1 EA IV ONE (18:26)
[2024-06-09 18:28] LABS: BLOOD UREA NITROGEN 25 MG/DL (9-23); CALCIUM LEVEL 8.7 MG/DL (8.3-10.6); CARBON DIOXIDE LEVEL 29 MMOL/L (20-31); CHLORIDE LEVEL 104 MMOL/L (98-107); CREATININE FOR GFR 0.94 MG/DL (0.70-1.30); GLOMERULAR FILTRATION RATE > 60.0 (>49); GLUCOSE, FASTING 144 MG/DL (74-106); POTASSIUM SERUM 3.6 MMOL/L (3.5-5.1); SODIUM LEVEL 138 MMOL/L (136-145)
[2024-06-09] MEDS ORDERED: INSU100I48 SQ (19:17)
[2024-06-09] MEDS ORDERED: LISI20TA33 PO (19:17)
[2024-06-09] MEDS ORDERED: ASPI81TA26 PO (19:17)
[2024-06-09] MEDS ORDERED: HOME MED LIST COMPLETE! XX SCH (19:20)
[2024-06-09] MEDS ORDERED: VANCOMYCIN HCL 750 MG, VIAL MATE ADAPTER 1 EACH in D5W 250 ML IV SCH (20:15)
[2024-06-09] MEDS ORDERED: DEXTROSE 50% 50ML SYRINGE IV PRN ×2 (20:15→21:45)
[2024-06-09] MEDS ORDERED: GLUCAGON INJ 1MG VIAL SC PRN ×2 (20:15→21:45)
[2024-06-09] MEDS ORDERED: MOM 30ML SUSPENSION UDC PO PRN (20:15)
[2024-06-09] MEDS ORDERED: GLUCOSE 4 GM CHEW PO PRN ×2 (20:15→21:45)
[2024-06-09] MEDS: NS 500 ML IV ONE (20:28)
[2024-06-09] MEDS: INSULIN LISPRO (NovoLOG) PER UNIT SC SCH (21:00)
[2024-06-09] MEDS ORDERED: LEVEMIR (INSULIN DETEMIR) 1 UNITS/0.01ML SC SCH (21:00)
[2024-06-09] MEDS: risperiDONE 2 MG TAB PO SCH (21:39)
[2024-06-09] MEDS: GABAPENTIN 100 MG CAP PO SCH (21:39)
[2024-06-09 22:22] VITALS: BP 146/70; TEMP 97.5; O2SAT 96
[2024-06-09 23:00] VITALS: BP 146/70; TEMP 97.5; O2SAT 96
[2024-06-09] MEDS: PIPERACILLIN/TAZOBACTAM SOD 3.375 GM in D5W MINI-BAG PLUS 50 ML IV SCH (23:27)
[2024-06-10] MEDS: VANCOMYCIN HCL 1,000 MG, VIAL MATE ADAPTER 1 EACH in D5W 250 ML IV ONE ×2 (00:37→01:46)
[2024-06-10] MEDS: MORPHINE 4 MG/ML 1ML VIAL IV PRN (02:28)
[2024-06-10] MEDS: diphenhydrAMINE CREAM 30GM TOP PRN (02:29)
[2024-06-10] MEDS: KETOROLAC 30 MG/ML 1ML VIAL IV ONE (03:21)
[2024-06-10 04:41] VITALS: BP 105/57; TEMP 97; O2SAT 93
[2024-06-10 06:18] LABS: HEMATOCRIT 35.3 % (42.0-52.0); HEMOGLOBIN 11.6 g/dl (13.5-17.5); MEAN CORPUSCULAR HEMOGLOBIN 28.9 pg (27.0-33.0); MEAN CORPUSCULAR HGB CONC 32.9 g/dl (32.0-36.5); MEAN CORPUSCULAR VOLUME 87.8 fl (80.0-96.0); PLATELET COUNT, AUTOMATED 196 10^3/uL (150-450); RED BLOOD COUNT 4.02 10^6/uL (4.30-6.10); WHITE BLOOD COUNT 13.7 10^3/uL (4.0-10.0)
[2024-06-10 06:45] LABS: ALBUMIN 2.9 G/DL (3.2-5.2); ALKALINE PHOSPHATASE 102 U/L (46-116); ALT/SGPT 12 U/L (7.0-40); AST/SGOT 13 U/L (<34); BILIRUBIN,TOTAL 0.6 MG/DL (0.3-1.2); BLOOD UREA NITROGEN 22 MG/DL (9-23); CALCIUM LEVEL 8.4 MG/DL (8.3-10.6); CARBON DIOXIDE LEVEL 29 MMOL/L (20-31); CHLORIDE LEVEL 104 MMOL/L (98-107); CREATININE FOR GFR 0.96 MG/DL (0.70-1.30); GLOMERULAR FILTRATION RATE > 60.0 (>49); GLUCOSE, FASTING 118 MG/DL (74-106); POTASSIUM SERUM 3.4 MMOL/L (3.5-5.1); SODIUM LEVEL 137 MMOL/L (136-145)
[2024-06-10] MEDS ORDERED: INSULIN LISPRO (NovoLOG) PER UNIT SC SCH (07:30)
[2024-06-10] MEDS: POTASSIUM CHLORIDE 10MEQ SR TABLET PO ONE (08:03)
[2024-06-10] MEDS: ATORVASTATIN 20 MG TAB PO SCH (08:03)
[2024-06-10] MEDS: VANCOMYCIN HCL 750 MG, VIAL MATE ADAPTER 1 EACH in D5W 250 ML IV SCH ×2 (08:04→09:00)
[2024-06-10] MEDS: ASPIRIN 81MG ENTERIC TABLET PO SCH (08:04)
[2024-06-10] MEDS ORDERED: ENOXAPARIN 40MG/0.4ML SYRINGE (J1650 PER 10MG) SC SCH (09:00)
[2024-06-10] MEDS ORDERED: MIDAZOLAM INJ 2MG/2ML VIAL As Ordered ONE (09:48)
[2024-06-10] MEDS ORDERED: fentaNYL 100 MCG/2 ML INJECTION As Ordered ONE (09:50)
[2024-06-10] MEDS ORDERED: propofoL 200 MG/20 ML VIAL As Ordered ONE (09:51)
[2024-06-10] MEDS ORDERED: LIDOCAINE 2% 100MG/5ML SDV (FOR ANES.) As Ordered ONE (09:51)
[2024-06-10] MEDS: LIDOCAINE 1% SDV 30ML VIAL As Ordered ONE (10:42)
[2024-06-10 11:44] VITALS: BP 131/73; TEMP 97.9
[2024-06-10] MEDS: FLUBLOK(EGGFREE) TRIVAL(24-25) VACCINE PF 0.5ML SYRINGE 18YRS & OLDER IM.IMMUN ONE (14:50)
[2024-06-10] MEDS ORDERED: MINERAL OIL 473ML BTL XX ONE (15:45)
[2024-06-10] MEDS: MINERAL OIL 473ML BTL XX ONE (15:50)
[2024-06-10 16:23] LABS: HEMOGLOBIN A1c 7.3 % (4.0-6.0)
[2024-06-10] MEDS ORDERED: VANCOMYCIN HCL 1,000 MG, VIAL MATE ADAPTER 1 EACH in D5W 250 ML IV SCH (18:00)
[2024-06-10] MEDS: ACETAMINOPHEN TAB 650MG DOSE (2X325MG) PO PRN (18:21)
[2024-06-10 19:58] VITALS: BP 155/76; TEMP 97.7; O2SAT 92
[2024-06-10] MEDS: TRIAMCINOLONE ACET 0.1% OINTMENT 80GM EXT SCH (21:00)
[2024-06-10] MEDS: INSULIN LISPRO (NovoLOG) PER UNIT SC SCH ×2 (21:00)
[2024-06-10] MEDS: ENOXAPARIN 40MG/0.4ML SYRINGE (J1650 PER 10MG) SC SCH (21:23)
[2024-06-10] MEDS: LINEZOLID 600MG TABLET (ZYVOX) PO SCH (21:23)
[2024-06-10] MEDS: LEVEMIR (INSULIN DETEMIR) 1 UNITS/0.01ML SC SCH (21:25)
[2024-06-11 04:32] VITALS: BP 156/77; TEMP 97.5; O2SAT 95
[2024-06-11 06:30] LABS: HEMATOCRIT 36.8 % (42.0-52.0); HEMOGLOBIN 12.2 g/dl (13.5-17.5); MEAN CORPUSCULAR HEMOGLOBIN 28.6 pg (27.0-33.0); MEAN CORPUSCULAR HGB CONC 33.2 g/dl (32.0-36.5); MEAN CORPUSCULAR VOLUME 86.4 fl (80.0-96.0); PLATELET COUNT, AUTOMATED 224 10^3/uL (150-450); RED BLOOD COUNT 4.26 10^6/uL (4.30-6.10)
[2024-06-11 06:50] LABS: ALBUMIN 2.9 G/DL (3.2-5.2); ALKALINE PHOSPHATASE 108 U/L (46-116); ALT/SGPT 19 U/L (7.0-40); AST/SGOT 14 U/L (<34); BILIRUBIN,TOTAL 0.5 MG/DL (0.3-1.2); BLOOD UREA NITROGEN 17 MG/DL (9-23); CALCIUM LEVEL 8.6 MG/DL (8.3-10.6); CARBON DIOXIDE LEVEL 26 MMOL/L (20-31); CHLORIDE LEVEL 104 MMOL/L (98-107); CREATININE FOR GFR 0.91 MG/DL (0.70-1.30); GLOMERULAR FILTRATION RATE > 60.0 (>49); GLUCOSE, FASTING 156 MG/DL (74-106); SODIUM LEVEL 136 MMOL/L (136-145); TOTAL PROTEIN 6.3 G/DL (5.7-8.2)
[2024-06-11] MEDS: INSULIN LISPRO (NovoLOG) PER UNIT SC SCH (08:36)
[2024-06-11] MEDS: FLUCONAZOLE 100 MG TAB PO SCH (08:41)
[2024-06-11 12:00] VITALS: TEMP 97.3; O2SAT 92
[2024-06-11] MEDS: DOCUSATE SODIUM 100MG CAPSULE PO SCH (20:08)
[2024-06-11] MEDS: LEVEMIR (INSULIN DETEMIR) 1 UNITS/0.01ML SC SCH (20:09)
[2024-06-11 20:22] VITALS: BP 135/83; TEMP 97.5; O2SAT 91
[2024-06-12 04:02] VITALS: BP 134/79; TEMP 97.3; O2SAT 96
[2024-06-12 06:29] LABS: HEMATOCRIT 37.9 % (42.0-52.0); HEMOGLOBIN 12.8 g/dl (13.5-17.5); MEAN CORPUSCULAR HEMOGLOBIN 28.9 pg (27.0-33.0); MEAN CORPUSCULAR HGB CONC 33.8 g/dl (32.0-36.5); MEAN CORPUSCULAR VOLUME 85.6 fl (80.0-96.0); PLATELET COUNT, AUTOMATED 252 10^3/uL (150-450); RED BLOOD COUNT 4.43 10^6/uL (4.30-6.10); WHITE BLOOD COUNT 13.3 10^3/uL (4.0-10.0)
[2024-06-12 07:08] LABS: ALKALINE PHOSPHATASE 110 U/L (46-116); ALT/SGPT 22 U/L (7.0-40); AST/SGOT 14 U/L (<34); BILIRUBIN,TOTAL 0.4 MG/DL (0.3-1.2); BLOOD UREA NITROGEN 18 MG/DL (9-23); CALCIUM LEVEL 8.9 MG/DL (8.3-10.6); CARBON DIOXIDE LEVEL 27 MMOL/L (20-31); CHLORIDE LEVEL 106 MMOL/L (98-107); CREATININE FOR GFR 0.89 MG/DL (0.70-1.30); GLOMERULAR FILTRATION RATE > 60.0 (>49); GLUCOSE, FASTING 154 MG/DL (74-106); SODIUM LEVEL 137 MMOL/L (136-145); TOTAL PROTEIN 6.7 G/DL (5.7-8.2)
[2024-06-12 08:39] VITALS: BP 120/75
[2024-06-12] MEDS ORDERED: ACET1TAB55 PO (11:57)
[2024-06-12 12:00] VITALS: BP 137/82; TEMP 97.2; O2SAT 98
[2024-06-12] MEDS ORDERED: FLUC100T3 PO (12:04)
[2024-06-12] MEDS ORDERED: TRIA1OI80 EXT (12:04)
[2024-06-12] MEDS ORDERED: BACT800T5 PO (12:04)
[2024-06-12] MEDS ORDERED: FLUBLOK(EGGFREE) TRIVAL(24-25) VACCINE PF 0.5ML SYRINGE 18YRS & OLDER IM.IMMUN ONE (13:00)
== END 2024-06-12 12:30 | disposition home health service (06) | DRG 872 ==
LOC: M ED 12:52 → EDBD 12:52 → M ED INP 20:15 → M MS5PR 22:12
PROVIDERS: ADMIT Preventive Medicine Undersea and Hyperbaric Medicine; ATTEND Internal Medicine
PROC: 0Y9N0ZZ Drainage of Left Foot, Open Approach (ICD-10-PCS; principal; 2024-06-10 10:00)
DX: A41.9 Sepsis, unspecified organism (principal); L03.116 Cellulitis of left lower limb; L02.612 Cutaneous abscess of left foot; F31.9 Bipolar disorder, unspecified; F20.9 Schizophrenia, unspecified; I10 Essential (primary) hypertension; E11.42 Type 2 diabetes mellitus with diabetic polyneuropathy; E78.5 Hyperlipidemia, unspecified; R21 Rash and other nonspecific skin eruption; Z79.82 Long term (current) use of aspirin; Z79.899 Other long term (current) drug therapy; Z89.421 Acquired absence of other right toe(s)

== ENCOUNTER → 2024-07-20 | Outpatient (REF) | payer MEDICARE, MEDICAID ==
[~2024-07-20] MED LIST changes: +ACET1TAB55 PO; -ARIP10TA32 PO; +ARIP10TA63 PO; +ASPI81TA26 PO; +BACT800T5 PO; -DOXY-323 PO; +DOXY-441 PO; +INSU100I48 SQ; +LISI20TA33 PO; -SENN-111 PO; +SENN-165 PO; +TRIA1OI80 EXT
== END ==
LOC: M LAB REF 14:57
PROVIDERS: ATTEND Podiatrist Foot & Ankle Surgery
DX: Z89.422 Acquired absence of other left toe(s) (principal)

== ENCOUNTER → 2024-10-05 | Outpatient (REF) | payer MEDICARE, MEDICAID | LOC: M LAB REF 16:10 | PROVIDERS: ATTEND Podiatrist Foot & Ankle Surgery | DX: L03.116 Cellulitis of left lower limb (principal) ==

== ENCOUNTER → 2024-11-01 | Outpatient (REF) | payer MEDICARE, MEDICAID ==
[2024-11-01 18:35] LABS: ALBUMIN 3.7 G/DL (3.2-5.2); ALKALINE PHOSPHATASE 103 U/L (40-129); ALT/SGPT 16 U/L (7.0-40); AST/SGOT 10 U/L (<34); BILIRUBIN,TOTAL 0.2 MG/DL (0.3-1.2); BLOOD UREA NITROGEN 13 MG/DL (9-23); CALCIUM LEVEL 8.7 MG/DL (8.3-10.6); CARBON DIOXIDE LEVEL 26 MMOL/L (20-31); CHLORIDE LEVEL 102 MMOL/L (98-107); CHOLESTEROL LEVEL 96 MG/DL (<200); CHOLESTEROL RISK RATIO 2.19 (<5); CREATININE FOR GFR 0.87 MG/DL (0.70-1.30); GLOMERULAR FILTRATION RATE > 60.0 (>49); GLUCOSE, FASTING 121 MG/DL (74-106); HDL CHOLESTEROL 43.7 MG/DL (>40); LDL CHOLESTEROL 27.5 MG/DL (<100); NON-HDL-C 52.3 MG/DL; POTASSIUM SERUM 4.7 MMOL/L (3.5-5.1); SODIUM LEVEL 139 MMOL/L (136-145); TOTAL PROTEIN 6.8 G/DL (5.7-8.2); TRIGLYCERIDES LEVEL 124 MG/DL (<150)
[2024-11-01 18:41] LABS: THYROID STIMULATING HORMONE 0.462 uIU/ML (0.55-4.78)
[2024-11-01 19:01] LABS: HEMOGLOBIN A1c 6.2 % (4.0-6.0)
== END ==
LOC: M LAB REF 16:22
PROVIDERS: ATTEND Family Medicine Addiction Medicine
DX: E11.69 Type 2 diabetes mellitus with other specified complication (principal)

== ENCOUNTER 2024-11-03 20:54 | Emergency (ER) | payer MEDICARE, MEDICAID ==
[~2024-11-03] VITALS: Ht 182.9 cm; Wt 113.6 kg
[2024-11-04] MEDS: ACETAMINOPHEN 325 MG TAB PO ONE (00:16)
[2024-11-04] MEDS ORDERED: ONDA-282 PO (00:54)
[2024-11-04] MEDS ORDERED: OSEL75CA PO (00:54)
[2024-11-04] MEDS ORDERED: ACET650T15 PO (00:54)
[2024-11-04] MEDS ORDERED: VENTAER INH (00:57)
[2024-11-04] MEDS: ONDANSETRON 4MG ORAL DISINTEGRATING TAB PO ONE (01:21)
[2024-11-04] MEDS: OSELTAMIVIR PHOSPHATE 75 MG CAP PO ONE (01:21)
[2024-11-04] MEDS: IPRATROPIUM 0.5MG/ALBUTEROL 2.5MG INH SOL UD 3ML (DUONEB) NEB ONE (01:26)
[2024-11-04 01:30] VITALS: BP 112/55; TEMP 97.1; O2SAT 92
== END 2024-11-04 01:38 | disposition home or self-care (01) ==
LOC: M ED 20:54 → EDBD 20:54 → M ED 11-04 01:38
DX: J09.X2 Influenza due to identified novel influenza A virus with other respiratory manifestations (principal); I10 Essential (primary) hypertension; F17.200 Nicotine dependence, unspecified, uncomplicated; E78.5 Hyperlipidemia, unspecified; E11.9 Type 2 diabetes mellitus without complications; Z79.82 Long term (current) use of aspirin; Z79.02 Long term (current) use of antithrombotics/antiplatelets; Z79.4 Long term (current) use of insulin; Z79.83 Long term (current) use of bisphosphonates; Z79.899 Other long term (current) drug therapy

== ENCOUNTER 2025-06-16 19:53 | Emergency (ER) | payer MEDICARE, MEDICAID ==
[~2025-06-16] VITALS: Ht 182.9 cm; Wt 108.1 kg
[~2025-06-16 19:53] MED LIST changes: +ACET-1515 PO; +ONDA-282 PO; +OSEL75CA PO; +VENTAER INH
[2025-06-16 20:00] VITALS: TEMP 97.1
[2025-06-16 20:40] LABS: VENOUS BASE EXCESS 1.5 (-2.0-2.0); VENOUS HCO3 26.2 MMOL/L (23.0-27.0); VENOUS O2 SATURATION 96.4 % (60.0-80.0); VENOUS PARTIAL PRESSURE CO2 41.5 mmHg (38.0-50.0); VENOUS PARTIAL PRESSURE O2 92.0 mmHg (30.0-50.0); VENOUS PH 7.418 UNITS (7.330-7.430); VENOUS STANDARD HCO3 25.8 MMOL/L; VENOUS TOTAL CO2 27.5 MMOL/L (24.0-28.0)
[2025-06-16 20:46] LABS: BASO # 0.1 10^3/uL (0.0-0.2); BASO % 0.4 % (0.0-1.0); EOS # 0.3 10^3/uL (0.0-0.5); EOS % 2.1 % (0.0-3.0); LYMPH # 3.3 10^3/uL (1.5-5.0); LYMPH % 22.9 % (24.0-44.0); MONO # 0.9 10^3/uL (0.0-0.8); MONO % 6.0 % (2.0-8.0); NEUTROPHILS # 10.0 10^3/uL (1.5-8.5); NEUTROPHILS % 68.3 % (36.0-66.0); PLATELET COUNT, AUTOMATED 206 10^3/uL (150-450)
[2025-06-16 20:59] LABS: INR 1.02
[2025-06-16 21:10] LABS: CK-MB VALUE MASS 3.9 NG/ML (<3.6); ETHYL ALCOHOL (ETHANOL) < 0.003 % (0.000-0.010)
[2025-06-16 21:12] LABS: ALT/SGPT 18 U/L (7.0-40); AST/SGOT 18 U/L (<34); CALCIUM LEVEL 7.9 MG/DL (8.3-10.6); CARBON DIOXIDE LEVEL 25 MMOL/L (20-31); CHLORIDE LEVEL 105 MMOL/L (98-107); CREATININE FOR GFR 0.96 MG/DL (0.70-1.30); GLOMERULAR FILTRATION RATE 88.3 (>49); POTASSIUM SERUM 3.9 MMOL/L (3.5-5.1); SODIUM LEVEL 139 MMOL/L (136-145)
[2025-06-16 21:14] LABS: CPK CREATINE PHOSPHOKINASE 153 U/L (46-171); MB/CK RELATIVE INDEX 2.54 (< OR =4)
[2025-06-16 22:30] VITALS: BP 147/67
[2025-06-16 22:40] LABS: APPEARANCE, URINE CLEAR (CLEAR); BACTERIA, URINE AUTO NEGATIVE (NEGATIVE); BILIRUBIN, URINE AUTO NEGATIVE (NEGATIVE); BLOOD, URINE BLOOD 1+ (NEGATIVE); GLUCOSE, URINE (UA) AUTO 2+ mg/dL (NEGATIVE); KETONE, URINE AUTO NEGATIVE (NEGATIVE); LEUKOCYTE ESTERASE, URINE AUTO NEGATIVE (NEGATIVE); MUCUS, URINE SMALL (NEGATIVE); NITRITE, URINE AUTO NEGATIVE (NEGATIVE); PROTEIN, URINE AUTO 1+ mg/dL (NEGATIVE); RBC, URINE AUTO 6 /HPF (0-3); SPECIFIC GRAVITY URINE AUTO 1.012 (1.002-1.035); SQUAMOUS EPITHELIAL CELL UR AU 1 /HPF (0-6); UROBILINOGEN, URINE AUTO 0.2 mg/dL (0.0-2.0); WBC, URINE AUTO 1 /HPF (0-3)
[2025-06-16 22:45] VITALS: O2SAT 97
[2025-06-16 22:50] LABS: AMPHETAMINES LEVEL URINE NEGATIVE (NEGATIVE)
[2025-06-16 22:51] LABS: BARBITURATES URINE NEGATIVE (NEGATIVE); BENZODIAZEPINES URINE NEGATIVE (NEGATIVE); COCAINE METABOLITE URINE NEGATIVE (NEGATIVE); METHADONE URINE NEGATIVE (NEGATIVE); OPIATES URINE NEGATIVE (NEGATIVE); PHENCYCLIDINE URINE NEGATIVE (NEGATIVE)
[2025-06-16 22:57] LABS: CANNABINOIDS URINE POSITIVE (NEGATIVE)
== END 2025-06-16 22:55 | disposition left against medical advice (07) ==
LOC: M ED 19:53
DX: S08.0XXA Avulsion of scalp, initial encounter (principal); S50.811A Abrasion of right forearm, initial encounter; S60.511A Abrasion of right hand, initial encounter; S60.512A Abrasion of left hand, initial encounter; V19.3XXA Pedal cyclist (driver) (passenger) injured in unspecified nontraffic accident, initial encounter; M47.812 Spondylosis without myelopathy or radiculopathy, cervical region; M25.78 Osteophyte, vertebrae; M48.02 Spinal stenosis, cervical region; I44.0 Atrioventricular block, first degree; E78.5 Hyperlipidemia, unspecified; E11.9 Type 2 diabetes mellitus without complications; I10 Essential (primary) hypertension; F32.A Depression, unspecified; F41.9 Anxiety disorder, unspecified; F10.10 Alcohol abuse, uncomplicated; Y92.410 Unspecified street and highway as the place of occurrence of the external cause; Y93.89 Activity, other specified; Y99.9 Unspecified external cause status; Z79.1 Long term (current) use of non-steroidal anti-inflammatories (NSAID); Z79.82 Long term (current) use of aspirin; Z79.02 Long term (current) use of antithrombotics/antiplatelets; Z79.4 Long term (current) use of insulin; Z79.83 Long term (current) use of bisphosphonates; Z79.899 Other long term (current) drug therapy

== ENCOUNTER 2025-07-27 21:06 | Emergency (ER) | payer MEDICARE, MEDICAID ==
[2025-07-27] MEDS ORDERED: TRAZ-252 PO (23:03)
[2025-07-27] MEDS: traZODone 50 MG TAB PO ONE (23:13)
[2025-07-27 23:26] VITALS: BP 127/60; TEMP 96.8; O2SAT 97
== END 2025-07-27 23:27 | disposition home or self-care (01) ==
LOC: M ED 21:06
DX: F51.01 Primary insomnia (principal); F31.9 Bipolar disorder, unspecified; E11.9 Type 2 diabetes mellitus without complications; E78.5 Hyperlipidemia, unspecified; I10 Essential (primary) hypertension; F17.200 Nicotine dependence, unspecified, uncomplicated; F20.9 Schizophrenia, unspecified; Z79.1 Long term (current) use of non-steroidal anti-inflammatories (NSAID); Z79.899 Other long term (current) drug therapy; Z79.4 Long term (current) use of insulin; Z79.2 Long term (current) use of antibiotics

== ENCOUNTER 2025-08-04 10:25 | Emergency (ER) | payer MEDICARE, MEDICAID ==
[~2025-08-04] VITALS: Ht 182.9 cm; Wt 108.1 kg
[~2025-08-04 10:25] MED LIST changes: +TRAZ-252 PO
[2025-08-04 13:38] VITALS: BP 130/72; TEMP 97.4; O2SAT 96
== END 2025-08-04 13:50 | disposition home or self-care (01) ==
LOC: M ED 10:25 → EDBD 10:25 → M ED 13:50
DX: Z59.9 Problem related to housing and economic circumstances, unspecified (principal); E11.9 Type 2 diabetes mellitus without complications; I10 Essential (primary) hypertension; F31.9 Bipolar disorder, unspecified; F20.9 Schizophrenia, unspecified; Z79.1 Long term (current) use of non-steroidal anti-inflammatories (NSAID); Z79.82 Long term (current) use of aspirin; Z79.02 Long term (current) use of antithrombotics/antiplatelets; Z79.4 Long term (current) use of insulin; Z79.899 Other long term (current) drug therapy

== ENCOUNTER 2025-08-08 11:06 | Emergency (ER) | payer MEDICARE, MEDICAID ==
[~2025-08-08] VITALS: Ht 175.3 cm; Wt 100.7 kg
[2025-08-08 11:17] VITALS: TEMP 97
[2025-08-08] MEDS ORDERED: TRAZ1TAB11 PO (13:18)
[2025-08-08] MEDS ORDERED: LANTINJ4 INJ (13:18)
[2025-08-08] MEDS ORDERED: HOME MED LIST COMPLETE! XX SCH (13:20)
[2025-08-08 14:15] VITALS: BP 157/89; O2SAT 97
[2025-08-08 14:44] LABS: KETONE, URINE AUTO RFX NEGATIVE (NEGATIVE); LEUKOCYTE ESTERASE UR AUTO RFX NEGATIVE (NEGATIVE); MUCUS, URINE RFX SMALL (NEGATIVE); NITRITE, URINE AUTO RFX NEGATIVE (NEGATIVE); RBC, URINE AUTO RFX 7 /HPF (0-3); SQUAM EPITHELIAL CELL UR AURFX 0 /HPF (0-6); WBC, URINE AUTO RFX 1 /HPF (0-3)
== END 2025-08-08 14:43 | disposition left against medical advice (07) ==
LOC: M ED 11:06
DX: R41.82 Altered mental status, unspecified (principal); M54.50 Low back pain, unspecified; I10 Essential (primary) hypertension; E78.5 Hyperlipidemia, unspecified; F17.200 Nicotine dependence, unspecified, uncomplicated; E11.9 Type 2 diabetes mellitus without complications; F41.9 Anxiety disorder, unspecified; F20.9 Schizophrenia, unspecified; Z79.52 Long term (current) use of systemic steroids; Z79.899 Other long term (current) drug therapy; Z79.82 Long term (current) use of aspirin; Z79.4 Long term (current) use of insulin; Z53.9 Procedure and treatment not carried out, unspecified reason

== ENCOUNTER 2025-08-17 05:49 | Emergency (ER) | payer MEDICARE, MEDICAID ==
[~2025-08-17] VITALS: Ht 182.9 cm; Wt 101.0 kg
[~2025-08-17 05:49] MED LIST changes: +LANTINJ4 INJ; +TRAZ1TAB11 PO
[2025-08-17] MEDS: ONDANSETRON 4MG/2ML VIAL IV ONE (07:37)
[2025-08-17] MEDS: NS (Normal Saline) 0.9% 1,000 ML IV ONE (07:37)
[2025-08-17 08:10] LABS: BASO # 0.1 10^3/uL (0.0-0.2); BASO % 0.7 % (0.0-1.0); EOS # 0.4 10^3/uL (0.0-0.5); EOS % 3.8 % (0.0-3.0); LYMPH # 1.7 10^3/uL (1.5-5.0); LYMPH % 15.4 % (24.0-44.0); MONO # 0.8 10^3/uL (0.0-0.8); MONO % 6.9 % (2.0-8.0); NEUTROPHILS # 8.0 10^3/uL (1.5-8.5); NEUTROPHILS % 72.7 % (36.0-66.0); PLATELET COUNT, AUTOMATED 237 10^3/uL (150-450)
[2025-08-17] MEDS ORDERED: ISOVUE-370 76% 100 ML VIAL As Ordered ONE (08:16)
[2025-08-17 08:32] LABS: ALT/SGPT 27 U/L (7.0-40); AST/SGOT 26 U/L (<34); CALCIUM LEVEL 8.6 MG/DL (8.3-10.6); CARBON DIOXIDE LEVEL 27 MMOL/L (20-31); CHLORIDE LEVEL 104 MMOL/L (98-107); CREATININE FOR GFR 0.86 MG/DL (0.70-1.30); GLOMERULAR FILTRATION RATE > 90.0 (>49); POTASSIUM SERUM 3.6 MMOL/L (3.5-5.1); SODIUM LEVEL 141 MMOL/L (136-145)
[2025-08-17 08:42] VITALS: TEMP 97.5
[2025-08-17 08:58] LABS: KETONE, URINE AUTO RFX NEGATIVE (NEGATIVE); LEUKOCYTE ESTERASE UR AUTO RFX NEGATIVE (NEGATIVE); NITRITE, URINE AUTO RFX NEGATIVE (NEGATIVE); RBC, URINE AUTO RFX 2 /HPF (0-3); SQUAM EPITHELIAL CELL UR AURFX 0 /HPF (0-6); WBC, URINE AUTO RFX 0 /HPF (0-3)
[2025-08-17] MEDS: ACETAMINOPHEN *IV* 1,000 MG in IV 1 EA IV ONE (09:01)
[2025-08-17 09:30] VITALS: BP 118/54; O2SAT 98
[2025-08-17] MEDS ORDERED: ONDA-282 PO (09:44)
[2025-08-18] MEDS ORDERED: SUCR1ORA PO (10:04)
== END 2025-08-17 10:03 | disposition home or self-care (01) ==
LOC: M ED 05:49
DX: K29.70 Gastritis, unspecified, without bleeding (principal); R10.9 Unspecified abdominal pain; R11.0 Nausea; I49.1 Atrial premature depolarization; F41.9 Anxiety disorder, unspecified; F32.A Depression, unspecified; E78.5 Hyperlipidemia, unspecified; E11.9 Type 2 diabetes mellitus without complications; I10 Essential (primary) hypertension; J98.11 Atelectasis; M51.360 Other intervertebral disc degeneration, lumbar region with discogenic back pain only; I70.0 Atherosclerosis of aorta; Z79.52 Long term (current) use of systemic steroids; Z79.82 Long term (current) use of aspirin; Z79.899 Other long term (current) drug therapy; Z79.02 Long term (current) use of antithrombotics/antiplatelets; Z79.4 Long term (current) use of insulin
CPT/HCPCS: 74177; 80047; 80048; 80076; 81001; 83690; 85025; 87486; 87581; 87633; 87798; 93005; 96361; 96365; 96375; 99284; J0134; J2405; Q9967

== ENCOUNTER 2025-08-18 04:01 | Emergency (ER) | payer MEDICARE, MEDICAID ==
[~2025-08-18] VITALS: Ht 175.3 cm; Wt 100.0 kg
[2025-08-18 04:03] VITALS: BP 158/79; TEMP 97.1; O2SAT 100
[2025-08-18] MEDS ORDERED: SUCR1ORA PO (10:04)
== END 2025-08-18 07:30 | disposition left against medical advice (07) ==
LOC: M ED 04:01
DX: Z53.21 Procedure and treatment not carried out due to patient leaving prior to being seen by health care provider (principal)

== ENCOUNTER 2025-08-18 08:35 | Emergency (ER) | payer MEDICARE, MEDICAID ==
[~2025-08-18] VITALS: Ht 175.3 cm; Wt 104.7 kg
[2025-08-18] MEDS: ONDANSETRON 4MG ORAL DISINTEGRATING TAB PO ONE (09:38)
[2025-08-18] MEDS: SUCRALFATE SUSP 1GM/10ML UD PO ONE ×2 (09:38→10:22)
[2025-08-18] MEDS ORDERED: SUCR1ORA PO (10:04)
[2025-08-18 10:09] VITALS: BP 126/58; TEMP 96.5; O2SAT 95
[2025-08-18] MEDS ORDERED: SUCRALFATE SUSP 1GM/10ML UD PO ONE (10:10)
== END 2025-08-18 10:23 | disposition home or self-care (01) ==
LOC: M ED 09:02
DX: R10.9 Unspecified abdominal pain (principal); Z59.00 Homelessness unspecified; E78.5 Hyperlipidemia, unspecified; I10 Essential (primary) hypertension; F20.9 Schizophrenia, unspecified; E11.9 Type 2 diabetes mellitus without complications; F17.200 Nicotine dependence, unspecified, uncomplicated; Z79.52 Long term (current) use of systemic steroids; Z79.82 Long term (current) use of aspirin; Z79.899 Other long term (current) drug therapy; Z79.02 Long term (current) use of antithrombotics/antiplatelets

== ENCOUNTER 2025-08-19 09:41 | Emergency (ER) | payer MEDICARE, MEDICAID ==
[~2025-08-19] VITALS: Ht 175.3 cm; Wt 107.4 kg
[~2025-08-19 09:41] MED LIST changes: +SUCR1ORA PO
[2025-08-19] MEDS: IBUPROFEN 800 MG TAB PO ONE (11:31)
[2025-08-19 11:54] LABS: KETONE, URINE AUTO RFX NEGATIVE (NEGATIVE); LEUKOCYTE ESTERASE UR AUTO RFX NEGATIVE (NEGATIVE); NITRITE, URINE AUTO RFX NEGATIVE (NEGATIVE); RBC, URINE AUTO RFX 7 /HPF (0-3); SQUAM EPITHELIAL CELL UR AURFX 1 /HPF (0-6); WBC, URINE AUTO RFX 0 /HPF (0-3)
[2025-08-19] MEDS: NS (Normal Saline) 0.9% 1,000 ML IV ONE (12:05)
[2025-08-19 12:39] LABS: BASO # 0.1 10^3/uL (0.0-0.2); BASO % 0.5 % (0.0-1.0); EOS # 0.2 10^3/uL (0.0-0.5); EOS % 2.0 % (0.0-3.0); LYMPH # 2.0 10^3/uL (1.5-5.0); LYMPH % 18.5 % (24.0-44.0); MONO # 0.7 10^3/uL (0.0-0.8); MONO % 6.8 % (2.0-8.0); NEUTROPHILS # 7.9 10^3/uL (1.5-8.5); NEUTROPHILS % 71.9 % (36.0-66.0); PLATELET COUNT, AUTOMATED 237 10^3/uL (150-450)
[2025-08-19 13:06] LABS: ALT/SGPT 28 U/L (7.0-40); AST/SGOT 25 U/L (<34); CALCIUM LEVEL 8.8 MG/DL (8.3-10.6); CARBON DIOXIDE LEVEL 30 MMOL/L (20-31); CHLORIDE LEVEL 100 MMOL/L (98-107); CREATININE FOR GFR 0.82 MG/DL (0.70-1.30); GLOMERULAR FILTRATION RATE > 90.0 (>49); POTASSIUM SERUM 4.0 MMOL/L (3.5-5.1); SODIUM LEVEL 139 MMOL/L (136-145)
[2025-08-19 13:36] VITALS: BP 146/73; TEMP 96.7; O2SAT 98
== END 2025-08-19 14:10 | disposition home or self-care (01) ==
LOC: M ED 09:41
DX: R31.9 Hematuria, unspecified (principal); N28.1 Cyst of kidney, acquired; M48.061 Spinal stenosis, lumbar region without neurogenic claudication; Z71.2 Person consulting for explanation of examination or test findings; F32.A Depression, unspecified; F41.9 Anxiety disorder, unspecified; E78.5 Hyperlipidemia, unspecified; E11.9 Type 2 diabetes mellitus without complications; I10 Essential (primary) hypertension; Z59.00 Homelessness unspecified; Z79.84 Long term (current) use of oral hypoglycemic drugs

== ENCOUNTER 2025-08-21 11:08 | Emergency (ER) | payer MEDICARE, MEDICAID ==
[~2025-08-21] VITALS: Ht 182.9 cm; Wt 109.1 kg
[2025-08-21] MEDS: ACETAMINOPHEN 500 MG TAB PO ONE (12:13)
[2025-08-21 14:48] VITALS: TEMP 98.3
[2025-08-21 14:59] VITALS: BP 135/69; O2SAT 98
== END 2025-08-21 15:01 | disposition home or self-care (01) ==
LOC: M ED 11:08
DX: M19.011 Primary osteoarthritis, right shoulder (principal); R10.9 Unspecified abdominal pain; M50.320 Other cervical disc degeneration, mid-cervical region, unspecified level; M51.34 Other intervertebral disc degeneration, thoracic region; M47.812 Spondylosis without myelopathy or radiculopathy, cervical region; M47.814 Spondylosis without myelopathy or radiculopathy, thoracic region; I10 Essential (primary) hypertension; F32.A Depression, unspecified; F41.9 Anxiety disorder, unspecified; E11.9 Type 2 diabetes mellitus without complications; F17.200 Nicotine dependence, unspecified, uncomplicated; Z79.52 Long term (current) use of systemic steroids; Z79.82 Long term (current) use of aspirin; Z79.899 Other long term (current) drug therapy; Z79.4 Long term (current) use of insulin

== ENCOUNTER 2025-08-24 14:05 | Emergency (ER) | payer MEDICARE, MEDICAID | END 2025-08-24 14:12 | disposition left against medical advice (07) | LOC: M ED 14:05 | DX: Z53.21 Procedure and treatment not carried out due to patient leaving prior to being seen by health care provider (principal) ==

== ENCOUNTER 2025-08-24 16:34 | Emergency (ER) | payer MEDICARE, MEDICAID ==
[~2025-08-24] VITALS: Ht 182.9 cm; Wt 102.0 kg
[2025-08-24 18:51] VITALS: BP 145/73; TEMP 97.8; O2SAT 100
== END 2025-08-24 18:53 | disposition home or self-care (01) ==
LOC: M ED 16:34
DX: Z76.5 Malingerer [conscious simulation] (principal); R51.9 Headache, unspecified; F60.9 Personality disorder, unspecified; E11.9 Type 2 diabetes mellitus without complications; I10 Essential (primary) hypertension; F17.200 Nicotine dependence, unspecified, uncomplicated; Z79.52 Long term (current) use of systemic steroids; Z79.82 Long term (current) use of aspirin; Z79.02 Long term (current) use of antithrombotics/antiplatelets; Z79.899 Other long term (current) drug therapy; Z79.4 Long term (current) use of insulin

== ENCOUNTER 2025-08-25 10:03 | Emergency (ER) | payer MEDICARE, MEDICAID ==
[~2025-08-25] VITALS: Ht 182.9 cm; Wt 102.0 kg
[2025-08-25 10:07] VITALS: BP 148/81; TEMP 98.7; O2SAT 96
== END 2025-08-25 11:07 | disposition left against medical advice (07) ==
LOC: M ED 10:03 → EDBD 10:03 → M ED 11:07
DX: Z53.21 Procedure and treatment not carried out due to patient leaving prior to being seen by health care provider (principal)

== ENCOUNTER 2025-08-25 11:15 | Emergency (ER) | payer MEDICARE, MEDICAID ==
[~2025-08-25] VITALS: Ht 152.4 cm; Wt 107.0 kg
[2025-08-25 11:18] VITALS: BP 179/86; TEMP 96.7; O2SAT 99
== END 2025-08-25 14:05 | disposition home or self-care (01) ==
LOC: M ED 11:15
DX: Z76.5 Malingerer [conscious simulation] (principal); E11.9 Type 2 diabetes mellitus without complications; I10 Essential (primary) hypertension; F17.200 Nicotine dependence, unspecified, uncomplicated; Z79.52 Long term (current) use of systemic steroids; Z79.82 Long term (current) use of aspirin; Z79.899 Other long term (current) drug therapy; Z79.4 Long term (current) use of insulin

== ENCOUNTER 2025-08-26 14:24 | Emergency (ER) | payer MEDICARE, MEDICAID ==
[~2025-08-26] VITALS: Ht 182.9 cm; Wt 109.1 kg
[2025-08-26] MEDS: IBUPROFEN 600 MG TAB PO ONE (18:00)
[2025-08-26 18:07] VITALS: BP 166/78; TEMP 97.7; O2SAT 96
== END 2025-08-26 18:09 | disposition home or self-care (01) ==
LOC: M ED 14:24
DX: M25.511 Pain in right shoulder (principal); I10 Essential (primary) hypertension; E11.9 Type 2 diabetes mellitus without complications; F20.9 Schizophrenia, unspecified; F41.9 Anxiety disorder, unspecified; F17.200 Nicotine dependence, unspecified, uncomplicated; Z79.52 Long term (current) use of systemic steroids; Z79.82 Long term (current) use of aspirin; Z79.899 Other long term (current) drug therapy; Z79.4 Long term (current) use of insulin

== ENCOUNTER 2025-08-26 21:03 | Emergency (ER) | payer MEDICARE, MEDICAID ==
[~2025-08-26] VITALS: Ht 182.9 cm; Wt 109.1 kg
[2025-08-26 21:10] VITALS: BP 138/79; TEMP 98; O2SAT 97
== END 2025-08-27 03:20 | disposition left against medical advice (07) ==
LOC: M ED 21:03
DX: Z53.21 Procedure and treatment not carried out due to patient leaving prior to being seen by health care provider (principal)

== ENCOUNTER 2025-08-28 05:30 | Emergency (ER) | payer MEDICARE, MEDICAID ==
[~2025-08-28] VITALS: Ht 182.9 cm; Wt 103.3 kg
[2025-08-28 05:39] VITALS: TEMP 97.9
[2025-08-28 07:25] VITALS: BP 134/74; O2SAT 97
[2025-08-28] MEDS: metFORMIN 500 MG TAB PO ONE (09:48)
== END 2025-08-28 09:53 | disposition home or self-care (01) ==
LOC: M ED 05:30
DX: M25.562 Pain in left knee (principal); M19.011 Primary osteoarthritis, right shoulder; E11.9 Type 2 diabetes mellitus without complications; I10 Essential (primary) hypertension; E78.5 Hyperlipidemia, unspecified; F17.200 Nicotine dependence, unspecified, uncomplicated; Z79.52 Long term (current) use of systemic steroids; Z79.82 Long term (current) use of aspirin; Z79.899 Other long term (current) drug therapy; Z79.02 Long term (current) use of antithrombotics/antiplatelets; Z79.4 Long term (current) use of insulin

== ENCOUNTER 2025-08-28 20:28 | Emergency (ER) | payer MEDICARE, MEDICAID ==
[~2025-08-28] VITALS: Ht 175.3 cm; Wt 109.1 kg
[2025-08-29] MEDS: metFORMIN 500 MG TAB PO ONE (01:24)
[2025-08-29 01:32] VITALS: BP 138/75; TEMP 97.5; O2SAT 97
== END 2025-08-29 01:42 | disposition home or self-care (01) ==
LOC: M ED 20:28
DX: F43.0 Acute stress reaction (principal); E11.9 Type 2 diabetes mellitus without complications; M19.011 Primary osteoarthritis, right shoulder; M17.12 Unilateral primary osteoarthritis, left knee; M25.462 Effusion, left knee; I10 Essential (primary) hypertension; F17.200 Nicotine dependence, unspecified, uncomplicated; Z79.52 Long term (current) use of systemic steroids; Z79.82 Long term (current) use of aspirin; Z79.4 Long term (current) use of insulin; Z79.899 Other long term (current) drug therapy

== ENCOUNTER 2025-09-08 14:01 | Emergency (ER) | payer MEDICARE, MEDICAID ==
[2025-09-08 21:07] VITALS: BP 138/78; TEMP 95.8; O2SAT 97
== END 2025-09-08 21:25 | disposition home or self-care (01) ==
LOC: M ED 14:01 → EDBD 14:01 → M ED 21:25
DX: S93.124A Dislocation of metatarsophalangeal joint of right lesser toe(s), initial encounter (principal); E11.65 Type 2 diabetes mellitus with hyperglycemia; F17.200 Nicotine dependence, unspecified, uncomplicated; I10 Essential (primary) hypertension; E78.5 Hyperlipidemia, unspecified; F41.9 Anxiety disorder, unspecified; F32.A Depression, unspecified; F20.9 Schizophrenia, unspecified; Z79.52 Long term (current) use of systemic steroids; Z79.82 Long term (current) use of aspirin; Z79.4 Long term (current) use of insulin; Z79.02 Long term (current) use of antithrombotics/antiplatelets; Z79.899 Other long term (current) drug therapy; Y92.89 Other specified places as the place of occurrence of the external cause; Y99.9 Unspecified external cause status; Y93.89 Activity, other specified